=== PATIENT | male | born 1960 ===

== ENCOUNTER 2016-11-28 23:28 | Emergency (ER) | payer SELFPAY ==
[2016-11-28 23:50] VITALS: BP 165/69; PULSE 93; RESP 20; TEMP 98.3; O2SAT 99
--- NOTE | 2016-11-29 00:50 | C.PDOC ---
History Of Present Illness 56 y/o homeless male presents to the ED with complains of bilateral leg swelling , itching and requesting bed to sleep for the night. Pt denies fever, chest pain , SOB , calf pain, re cent trauma or any other complaints. Pt states he walks a lot due to homelessness. Time Seen by Provider: 11/28/16 23:59 Chief Complaint (Nursing): Lower Extremity Problem/Injury History Per: Patient History/Exam Limitations: no limitations Onset/Duration Of Symptoms: Days Current Symptoms Are (Timing): Still Present Severity: Mild Recent travel outside of the [place]: No Past Medical History Reviewed: Historical Data, Nursing Documentation, Vital Signs Vital Signs: Last Vital Signs Temp 98.3 F 11/28/16 23:37 Pulse 93 H 11/28/16 23:37 Resp 20 11/28/16 23:37 BP 165/69 H 11/28/16 23:37 Pulse Ox 99 11/29/16 01:13 Family History: States: Unknown Family Hx - Social History Hx Alcohol Use: Yes Hx Substance Use: No - Immunization History Hx Tetanus Toxoid Vaccination: No Hx Influenza Vaccination: No Hx Pneumococcal Vaccination: No Review Of Systems Except As Marked, All Systems Reviewed And Found Negative. Constitutional: Negative for: Fever, Chills Cardiovascular: Negative for: Chest Pain Respiratory: Negative for: Shortness of Breath Musculoskeletal: Positive for: Other (bilateral leg swelling and itching) Physical Exam - Physical Exam Appears: Non-toxic, No Acute Distress, Other (poor hygeine) Skin: Warm, Dry Head: Atraumatic, Normacephalic Neck: Normal Chest: Symmetrical Cardiovascular: Rhythm Regular, No Murmur Respiratory: Normal Breath Sounds, No Rales, No Rhonchi, No Wheezing Extremity: Normal ROM, No Tenderness, No Calf Tenderness, No Deformity, Swelling (bilateral lower legs with dry excoriations over distal aspects lower legs; no warmth or open lesions) Extremity: Bilateral: Atraumatic Pulses: Left Dorsalis Pedis: Normal, Right Dorsalis Pedis: Normal Neurological/Psych: Oriented x3, Normal Speech, Normal Motor, Normal Sensation Gait: Steady ED Course And Treatment O2 Sat by Pulse Oximetry: 99 (room air) Pulse Ox Interpretation: Normal Disposition - Disposition Disposition: HOME/ ROUTINE Disposition Time: 01:08 Condition: STABLE Additional Instructions: Advised clinic follow up Leg elevation Return to ER if worse Instructions: Leg Edema (ED) - Clinical Impression Clinical Impression: Leg swelling, Venous stasis - PA / 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 - Scribe Statement The provider has reviewed the documentation as recorded by the Scribe Ilia Farmer All medical record entries made by the Demiibles were at my direction and personally dictated by me. I have reviewed the chart and agree that the record accurately reflects my personal performance of the history, physical exam, medical decision making, and the department course for this patient. I have also personally directed, reviewed, and agree with the discharge instructions and disposition.
== END 2016-11-29 01:30 | disposition home or self-care (01) ==
LOC: C.ER 23:28
DX: I87.8 Other specified disorders of veins (principal); M79.89 Other specified soft tissue disorders

== ENCOUNTER 2017-02-19 19:52 | Inpatient (IN) | payer MEDICAID ==
--- NOTE | 2017-02-19 20:16 | C.PDOC ---
History Of Present Illness 56 year old male who presents to the ER with a complaint of swelling to the abdomen, lower extremities, and genitalia for the past few days. Presence of abdominal pain, no fever nor chills. Chief Complaint (Nursing): Male Genitourinary History Per: Patient History/Exam Limitations: no limitations Onset/Duration Of Symptoms: Days Current Symptoms Are (Timing): Still Present Quality Of Discomfort: Unable To Describe Associated Symptoms: denies: Fever, Chills, Nausea, Vomiting, Back Pain, Chest Pain Alleviating Factors: None Recent travel outside of the [place]: No Past Medical History Reviewed: Historical Data, Nursing Documentation, Vital Signs Vital Signs: Last Vital Signs Temp 98.7 F 02/19/17 19:56 Pulse 88 02/19/17 19:56 Resp 16 02/19/17 19:56 BP 147/56 L 02/19/17 19:56 Pulse Ox 100 02/19/17 21:39 - Medical History PMH: Anxiety Surgical History: No Surg Hx Family History: States: Unknown Family Hx - Social History Hx Alcohol Use: Yes Hx Substance Use: No - Immunization History Hx Tetanus Toxoid Vaccination: No Hx Influenza Vaccination: No Hx Pneumococcal Vaccination: No Review Of Systems Constitutional: Negative for: Fever, Chills Cardiovascular: Negative for: Chest Pain Gastrointestinal: Negative for: Abdominal Pain Musculoskeletal: Negative for: Leg Pain Skin: Positive for: Other (Swelling) Physical Exam - Physical Exam Appears: Non-toxic, No Acute Distress Skin: Normal Color, Warm, Dry Head: Atraumatic, Normacephalic Oral Mucosa: Moist Chest: Symmetrical, No Tenderness Cardiovascular: Rhythm Regular, No Murmur Respiratory: Normal Breath Sounds, No Rales, No Rhonchi, No Wheezing Gastrointestinal/Abdominal: Soft, Tenderness (diffused tenderness), Distention ( markely distende, with ascites.), No Guarding, No Rebound, Ascites Rectal: Deferred Male Genital: Scrotal Swelling, Other (Penis swelling) Extremity: Normal ROM (x4), Pedal Edema (Bilateral) Neurological/Psych: Oriented x3, Normal Speech, Normal Cognition ED Course And Treatment - Laboratory Results Result Diagrams: 02/19/17 20:48 02/19/17 20:48 ECG: Interpreted By Me, Viewed By Me ECG Rhythm: Sinus Rhythm ECG Interpretation: Normal, No Acute Changes Interpretation Of ECG: NSR, normal tracings. Rate From EC O2 Sat by Pulse Oximetry: 100 (Room air) Pulse Ox Interpretation: Normal - Radiology CXR: Interpreted by Me, Viewed By Me CXR Interpretation: Yes: Cardiomegaly, Other (inc. BV markings) Progress Note: CT abd/pel, EKG, blood work, cultures, and urinalysis ordered Disposition Discussed With Dr.: Yaya Leon Doctor Will See Patient In The: Hospital Counseled Patient/Family Regarding: Diagnosis - Disposition Disposition: HOSPITALIZED Disposition Time: 21:54 Condition: STABLE Forms: [employer] (Martiniquais) - POA Present On Arrival: None - Clinical Impression Clinical Impression: Liver cirrhosis, Ascites, Anasarca, Renal insufficiency - Scribe Statement The provider has reviewed the documentation as recorded by the Scribe Justice English All medical record entries made by the Scribe were at my direction and personally dictated by me. I have reviewed the chart and agree that the record accurately reflects my personal performance of the history, physical exam, medical decision making, and the department course for this patient. I have also personally directed, reviewed, and agree with the discharge instructions and disposition.
[2017-02-19 20:56] LABS: BASO % 0.3 % (0.0-2.0); EOS # 0.2 K/uL (0.0-0.7); EOS % 3.6 % (0.0-4.0); HEMATOCRIT 22.3 % (35.0-51.0); LYMPH # 0.9 K/uL (1.0-4.3); MEAN CELL VOLUME 103.1 fL (80.0-94.0); MEAN CORPUSCULAR HEMOGLOBIN 35.4 pg (27.0-31.0); MEAN CORPUSCULAR HGB CONC 34.3 g/dL (33.0-37.0); MONO # 0.7 K/uL (0.0-0.8); MONO % 11.2 % (0.0-10.0); RED CELL DISTRIBUTION WIDTH 19.5 % (11.5-14.5); WHITE BLOOD COUNT 5.8 K/uL (4.8-10.8)
[2017-02-19 21:02] LABS: POTASSIUM 4.2 mmol/L (3.6-5.2)
[2017-02-19 21:04] LABS: ALB/GLOB RATIO 0.4 (1.0-2.1); BILIRUBIN,TOTAL 1.4 mg/dL (0.2-1.3); CALCIUM 7.3 mg/dl (8.6-10.4); TOTAL PROTEIN 6.5 g/dL (6.3-8.3)
[2017-02-19 22:15] LABS: INR 1.7
[2017-02-19] MEDS ORDERED: Albumin Human 25% (12.5 gm/50 ml) IV ONE (23:08)
[2017-02-19 23:36] LABS: RBC URINE 295 /hpf (0-3); URINE BACTERIA FEW (<OCC); URINE BILIRUBIN NEGATIVE (NEGATIVE); URINE BLOOD 3+ (NEGATIVE); URINE COLOR Amber (YELLOW); URINE GLUCOSE (UA) NORMAL (Normal); URINE KETONE NEGATIVE (NEGATIVE); URINE LEUKOCYTE ESTERASE 1+ Leu/uL (Negative); URINE PROTEIN 2+ mg/dL (NEGATIVE); URINE UROBILINOGEN NORMAL mg/dL (0.2-1.0); WBC URINE 20 /hpf (0-5)
--- NOTE | 2017-02-19 23:38 | CP.PCM.CON ---
History of Present Illness - History of Present Illness History of Present Illness: CC: Past Patient History - Past Social History Smoking Status: Light Smoker < 10 Cigarettes Daily - PSYCHIATRIC Hx Anxiety: Yes Hx Substance Use: No - SURGICAL HISTORY Hx Surgeries: No - ANESTHESIA Hx Anesthesia: No Meds Allergies/Adverse Reactions: Allergies Allergy/AdvReac Type Severity Reaction Status Date / Time No Known Allergies Allergy Verified 09/23/16 23:47 - Medications Medications: Current Medications Albumin Human (Albumin Human 25% (12.5 Gm/50 Ml)) 25 gm IV ONCE ONE Stop: 02/19/17 23:09 Results - Vital Signs Recent Vital Signs: Last Vital Signs Temp 98.7 F 02/19/17 19:56 Pulse 90 02/19/17 22:48 Resp 20 02/19/17 22:48 BP 139/59 L 02/19/17 22:48 Pulse Ox 100 02/19/17 22:48 - Labs Result Diagrams: 02/19/17 20:48 02/19/17 20:48 Labs: Laboratory Results - last 24 hr 02/19/17 02/19/17 02/19/17 22:00 22:00 22:03 PT 19.5 H INR 1.7 APTT 47 H Lactic Acid 1.5 Urine Color Urine Clarity Urine pH Ur Specific [place] Urine Protein Urine Glucose (UA) Urine Ketones Urine Blood Urine Nitrate Urine Bilirubin Urine Urobilinogen Ur Leukocyte Esterase Urine WBC (Auto) Urine RBC (Auto) Ur Squamous Epith Cells Urine Bacteria Blood Type O POSITIVE Antibody Screen Negative 02/19/17 23:22 PT INR APTT Lactic Acid Urine Color Dominique Urine Clarity Hazy Urine pH 5.0 Ur Specific [place] 1.013 Urine Protein 2+ H Urine Glucose (UA) Normal Urine Ketones Negative Urine Blood 3+ H Urine Nitrate Negative Urine Bilirubin Negative Urine Urobilinogen Normal Ur Leukocyte Esterase 1+ H Urine WBC (Auto) 20 H Urine RBC (Auto) 295 H Ur Squamous Epith Cells < 1 Urine Bacteria Few H Blood Type Antibody Screen
[2017-02-20 00:06] LABS: CREATININE, RANDOM URINE 153.7 mg/dL
--- NOTE | 2017-02-20 04:43 | CP.PCM.HP ---
<Munira Pineda - Last Filed: 02/20/17 06:19> History of Present Illness - History of Present Illness History of Present Illness: CC: Fluid overload HPI: Patient is a 56 year old male with no past medical history (as per patient ) who presents to the ED with complaints of bilateral leg swelling, distention of the abdomen and b/l testicular swelling that started 4 days ago. Patient reports that he has had similar episodes in the past but he is unsure of the onsets of his symptoms. Patient reports he was [place] [facility] [place] the same symptoms, where he had a paracentesis, draining about 6 bottles of fluid. Patient admits to abdominal pain, intermittent cough and dyspnea on exertion but denies fever, chills, nausea, vomiting, b/l leg pain, SOB, orthopnea. Patient is a poor historian. PMD: None PMHx: Denies PSHx: Denies FHx: unknown Medications: Denies Allergies: NKDA Social history: Homeless, admits to smoking (10 cigarettes for per day) denies ETOH and illicit drug use Present on Admission - Present on Admission Any Indicators Present on Admission: No Review of Systems - Constitutional Constitutional: absent: Chills, Fever, Headache, Weakness - EENT Ears: absent: Dizziness - Cardiovascular Cardiovascular: Edema, Leg Edema, Pedal Edema. absent: Chest Pain, Diaphoresis , Dyspnea, Orthopnea, Radiating Pain - Respiratory Respiratory: Cough, Dyspnea, Dyspnea on Exertion. absent: Chest Congestion - Gastrointestinal Gastrointestinal: Abdominal Pain. absent: Change in Bowel Habits, Nausea, Vomiting - Genitourinary Genitourinary: Urinary Frequency. absent: Dysuria, Pyuria - Reproductive: Male Additional comments: b/l Testicular enlargement - Integumentary Integumentary: Swelling. absent: Jaundice - Psychiatric Psychiatric: absent: Change in Appetite - Endocrine Endocrine: absent: Fatigue, Palpitations Past Patient History - Past Social History Smoking Status: Light Smoker < 10 Cigarettes Daily - PSYCHIATRIC Hx Anxiety: Yes Hx Substance Use: No - SURGICAL HISTORY Hx Surgeries: No - ANESTHESIA Hx Anesthesia: No Meds Allergies/Adverse Reactions: Allergies Allergy/AdvReac Type Severity Reaction Status Date / Time No Known Allergies Allergy Verified 09/23/16 23:47 Physical Exam - Head Exam Head Exam: ATRAUMATIC - Eye Exam Eye Exam: EOMI, Normal appearance - Respiratory Exam Respiratory Exam: Clear to Auscultation Bilateral, NORMAL BREATHING PATTERN - Cardiovascular Exam Cardiovascular Exam: REGULAR RHYTHM, JVD, +S1, +S2 Additional comments: Unable to tolerate complete supine position - GI/Abdominal Exam GI & Abdominal Exam: Distended, Firm, Normal Bowel Sounds, Tenderness Additional comments: Ascites - Extremities Exam Extremities exam: Positive for: pedal edema Additional comments: Mildly warm to touch, - Neurological Exam Neurological exam: Alert, Oriented x3 - Skin Skin Exam: Normal Color Results - Vital Signs Recent Vital Signs: Last Vital Signs Temp 98.5 F 02/20/17 04:26 Pulse 86 02/20/17 04:26 Resp 16 02/20/17 04:26 BP 135/65 02/20/17 04:26 Pulse Ox 100 02/20/17 04:26 - Labs Result Diagrams: 02/19/17 20:48 02/19/17 20:48 Labs: Laboratory Results - last 24 hr 02/19/17 02/19/17 02/19/17 22:00 22:00 22:03 PT 19.5 H INR 1.7 APTT 47 H Lactic Acid 1.5 Urine Color Urine Clarity Urine pH Ur Specific [place] Urine Protein Urine Glucose (UA) Urine Ketones Urine Blood Urine Nitrate Urine Bilirubin Urine Urobilinogen Ur Leukocyte Esterase Urine WBC (Auto) Urine RBC (Auto) Ur Squamous Epith Cells Urine Bacteria Ur Random Creatinine Ur Random Sodium Urine Opiates Screen Urine Methadone Screen Ur Barbiturates Screen Ur Phencyclidine Scrn Ur Amphetamines Screen U Benzodiazepines Scrn U Oth Cocaine Metabols U Cannabinoids Screen Blood Type O POSITIVE Antibody Screen Negative 02/19/17 02/19/17 02/19/17 23:22 23:22 23:48 PT INR APTT Lactic Acid Urine Color Dominique Urine Clarity Hazy Urine pH 5.0 Ur Specific [place] 1.013 Urine Protein 2+ H Urine Glucose (UA) Normal Urine Ketones Negative Urine Blood 3+ H Urine Nitrate Negative Urine Bilirubin Negative Urine Urobilinogen Normal Ur Leukocyte Esterase 1+ H Urine WBC (Auto) 20 H Urine RBC (Auto) 295 H Ur Squamous Epith Cells < 1 Urine Bacteria Few H Ur Random Creatinine 153.7 Ur Random Sodium < 5 Urine Opiates Screen Negative Urine Methadone Screen Negative Ur Barbiturates Screen Negative Ur Phencyclidine Scrn Negative Ur Amphetamines Screen Negative U Benzodiazepines Scrn Negative U Oth Cocaine Metabols Negative U Cannabinoids Screen Negative Blood Type Antibody Screen Assessment & Plan (1) Volume overload Assessment and Plan: Possibly secondary to cirrhosis or renal etiology Liver enzymes: * AST/ALT: 60/51, Alkaline phosphatase: 168 * Albumin: 2.0 * Urine random creatinine: 153.7 * Urine Sodium: <5 * F/u urine protein * F/u hepatitis panel Medication/ Treatment: Albumin 25gm IV once Compression stockings Imaging: * F/u Echocardiogram * F/u Chest-X-ray official report Status: Acute (2) Anemia Assessment and Plan: H/H * 22.3/7.7 * Transfused 1 Unit of PRBC * F/u H/H with repeat labs Status: Acute (3) Renal insufficiency Assessment and Plan: Cr/BUN: 2.7/61 - Fluid held due to volume overload Status: Acute (4) Thrombocytopenia Assessment and Plan: On admission: -Platelets: 44 - Continue to monitor Status: Acute (5) Prophylactic measure Assessment and Plan: Scds contraindicated due to b/l leg edema Protonix 40mg PO daily Anti-coagulation contraindication: low platelets and MICHELINE Status: Acute <Yaya Leon P - Last Filed: 02/20/17 08:23> Results - Vital Signs Recent Vital Signs: Last Vital Signs Temp 98.5 F 02/20/17 06:44 Pulse 75 02/20/17 07:17 Resp 15 02/20/17 07:17 BP 151/61 H 02/20/17 07:17 Pulse Ox 98 02/20/17 07:17 - Labs Result Diagrams: 02/20/17 06:42 02/20/17 06:42 Labs: Laboratory Results - last 24 hr 02/19/17 02/19/17 02/19/17 22:00 22:00 22:03 WBC RBC Hgb Hct MCV MCH MCHC RDW Plt Count MPV Neut % (Auto) Lymph % (Auto) Norman % (Auto) Eos % (Auto) Baso % (Auto) Neut # Lymph # Norman # Eos # Baso # PT 19.5 H INR 1.7 APTT 47 H Sodium Potassium Chloride Carbon Dioxide Anion Gap BUN Creatinine Est GFR ( Amer) Est GFR (Non-Af Amer) Random Glucose Lactic Acid 1.5 Calcium Phosphorus Magnesium Total Bilirubin AST ALT Alkaline Phosphatase Total Protein Albumin Globulin Albumin/Globulin Ratio Urine Color Urine Clarity Urine pH Ur Specific [place] Urine Protein Urine Glucose (UA) Urine Ketones Urine Blood Urine Nitrate Urine Bilirubin Urine Urobilinogen Ur Leukocyte Esterase Urine WBC (Auto) Urine RBC (Auto) Ur Squamous Epith Cells Urine Bacteria Ur Random Creatinine Ur Random Sodium Urine Opiates Screen Urine Methadone Screen Ur Barbiturates Screen Ur Phencyclidine Scrn Ur Amphetamines Screen U Benzodiazepines Scrn U Oth Cocaine Metabols U Cannabinoids Screen Blood Type O POSITIVE Antibody Screen Negative 02/19/17 02/19/17 02/19/17 23:22 23:22 23:48 WBC RBC Hgb Hct MCV MCH MCHC RDW Plt Count MPV Neut % (Auto) Lymph % (Auto) Norman % (Auto) Eos % (Auto) Baso % (Auto) Neut # Lymph # Norman # Eos # Baso # PT INR APTT Sodium Potassium Chloride Carbon Dioxide Anion Gap BUN Creatinine Est GFR ( Amer) Est GFR (Non-Af Amer) Random Glucose Lactic Acid Calcium Phosphorus Magnesium Total Bilirubin AST ALT Alkaline Phosphatase Total Protein Albumin Globulin Albumin/Globulin Ratio Urine Color Dominique Urine Clarity Hazy Urine pH 5.0 Ur Specific [place] 1.013 Urine Protein 2+ H Urine Glucose (UA) Normal Urine Ketones Negative Urine Blood 3+ H Urine Nitrate Negative Urine Bilirubin Negative Urine Urobilinogen Normal Ur Leukocyte Esterase 1+ H Urine WBC (Auto) 20 H Urine RBC (Auto) 295 H Ur Squamous Epith Cells < 1 Urine Bacteria Few H Ur Random Creatinine 153.7 Ur Random Sodium < 5 Urine Opiates Screen Negative Urine Methadone Screen Negative Ur Barbiturates Screen Negative Ur Phencyclidine Scrn Negative Ur Amphetamines Screen Negative U Benzodiazepines Scrn Negative U Oth Cocaine Metabols Negative U Cannabinoids Screen Negative Blood Type Antibody Screen 02/20/17 02/20/17 06:42 06:42 WBC 5.1 RBC 2.21 L Hgb 7.5 L Hct 22.0 L MCV 99.6 H D MCH 33.9 H MCHC 34.0 RDW 21.1 H Plt Count 42 L MPV 9.7 Neut % (Auto) 59.7 Lymph % (Auto) 21.6 Norman % (Auto) 13.0 H Eos % (Auto) 5.2 H Baso % (Auto) 0.5 Neut # 3.1 Lymph # 1.1 Norman # 0.7 Eos # 0.3 Baso # 0.0 PT INR APTT Sodium 137 Potassium 4.0 Chloride 112 H Carbon Dioxide 16 L Anion Gap 13 BUN 57 H Creatinine 2.8 H Est GFR ( Amer) 29 Est GFR (Non-Af Amer) 24 Random Glucose 106 Lactic Acid Calcium 7.6 L Phosphorus 4.7 H Magnesium 1.8 Total Bilirubin 1.8 H AST 53 ALT 43 Alkaline Phosphatase 138 H Total Protein 6.1 L Albumin 2.0 L Globulin 4.1 H Albumin/Globulin Ratio 0.5 L Urine Color Urine Clarity Urine pH Ur Specific [place] Urine Protein Urine Glucose (UA) Urine Ketones Urine Blood Urine Nitrate Urine Bilirubin Urine Urobilinogen Ur Leukocyte Esterase Urine WBC (Auto) Urine RBC (Auto) Ur Squamous Epith Cells Urine Bacteria Ur Random Creatinine Ur Random Sodium Urine Opiates Screen Urine Methadone Screen Ur Barbiturates Screen Ur Phencyclidine Scrn Ur Amphetamines Screen U Benzodiazepines Scrn U Oth Cocaine Metabols U Cannabinoids Screen Blood Type Antibody Screen Attending/Attestation - Attestation I have personally seen and examined this patient.: Yes I have fully participated in the care of the patient.: Yes I have reviewed all pertinent clinical information: Yes Notes (Text): Assessment: * Patient has anasarca, ascitis, subq and lympho edema of the full legs, low albumin of 2, CT finding of suspected hepatic cirrhosis, portal htn, enlarged spleen pointing hepatic origin, dd of nephrotic syn, cardiac origin. * Anemia, thrombocytopenia without h/o acute loss * [place] [facility] [place] and ascitic tap, patient is poor historian, does not provide any more information * Renal insufficiency, appear prerenal with low FENa, from low intravascular volume despite anasarca * Home less poor social support Plan * Urine spot albumin/creatinine * Transfuse albumin and prbc * Medical [place] [facility] [place] * Hepatic USG to r/o portal vein thrombosis * Diuresis once FENa > 1% * May need recurrent taps if remains prerenal * May need abx for sbp, betablocker to reduce portal pressure, salt water restriction, after initial availability of records. * Echo * Compression stockings for mechanical pressure to reduce leg edema * Stool occult blood * GI/DVT prophylaxis, heparin/lovenox contraindicated * See orders for detail.
[2017-02-20 06:45] LABS: EOS # 0.3 K/uL (0.0-0.7); LYMPH # 1.1 K/uL (1.0-4.3); MONO # 0.7 K/uL (0.0-0.8); WHITE BLOOD COUNT 5.1 K/uL (4.8-10.8)
[2017-02-20 06:50] LABS: BASO % 0.5 % (0.0-2.0); EOS % 5.2 % (0.0-4.0); LYMPH % 21.6 % (20.0-40.0); MEAN CELL VOLUME 99.6 fL (80.0-94.0); MEAN CORPUSCULAR HEMOGLOBIN 33.9 pg (27.0-31.0); MEAN PLATELET VOLUME 9.7 fL (7.2-11.7); NRBC % 0.2 % (0.0-2.0); RED CELL DISTRIBUTION WIDTH 21.1 % (11.5-14.5)
[2017-02-20 07:09] LABS: ALB/GLOB RATIO 0.5 (1.0-2.1); BILIRUBIN,TOTAL 1.8 mg/dL (0.2-1.3); CALCIUM 7.6 mg/dl (8.6-10.4); MAGNESIUM 1.8 mg/dL (1.6-2.3); PHOSPHOROUS 4.7 mg/dL (2.5-4.5); TOTAL PROTEIN 6.1 g/dL (6.3-8.3)
[2017-02-20] MEDS: Albumin Human 25% (12.5 gm/50 ml) IV SCH ×2 (09:08→10:27)
--- NOTE | 2017-02-20 09:27 | CT ---
PROCEDURE: CT Abdomen and Pelvis without intravenous contrast HISTORY: abd pain COMPARISON: None. TECHNIQUE: Without contrast.. Contrast Dose: 0 Radiation dose: Total exam DLP = 1337.3 mGy-cm. This CT exam was performed using one or more of the following dose reduction techniques: Automated exposure control, adjustment of the mA and/or kV according to patient size, and/or use of iterative reconstruction technique. FINDINGS: LOWER THORAX: Left pleural effusion. No right pleural effusion. No pulmonary infiltrate. LIVER: Nodular contour. Moderate atrophy of right lobe. Consistent with hepatic cirrhosis. Several calcified punctate hepatic granulomas. No biliary dilatation. No mass. GALLBLADDER AND BILE DUCTS: No evidence of cholelithiasis. High attenuation of gallbladder contents may reflect milk of calcium bile. PANCREAS: Unremarkable. No gross lesion or ductal dilatation. SPLEEN: Splenomegaly. Spleen measures up to 18 cm in greatest dimension. Punctate calcification consistent with granuloma. ADRENALS: Unremarkable. No mass. KIDNEYS AND URETERS: Unremarkable. No hydronephrosis. No solid mass. VASCULATURE: Unremarkable. No aortic aneurysm. BOWEL: Peters colonic diverticulosis. No evidence of diverticulitis. APPENDIX: Not positively identified. No secondary findings to suggest acute appendicitis. PERITONEUM: Extensive ascites. Coarse calcification beneath right hemidiaphragm, nonspecific. Likely dystrophic. LYMPH NODES: No significant retroperitoneal or pelvic lymphadenopathy. There is mild bilateral inguinal lymphadenopathy noted. BLADDER: Unremarkable. REPRODUCTIVE: Normal prostate. Left hydrocele secondary to patent processus vaginalis. BONES: No acute fracture. OTHER FINDINGS: Generalized anasarca. IMPRESSION: Hepatic cirrhosis. Extensive ascites. Old calcified hepatic and splenic granulomas. Marked splenomegaly. Small left pleural effusion. Preliminary interpretation of this examination was reported by [facility] at 9:31 p.m. on 02/19/2017. There is concurrence of this report with the preliminary interpretation.
--- NOTE | 2017-02-20 09:58 | CP.PCM.PN ---
<Chon Cole - Last Filed: 02/20/17 13:18> Subjective - Date & Time of Evaluation Date of Evaluation: 02/20/17 Time of Evaluation: 09:51 - Subjective Subjective: PGY1 Note for Dr. Cohen HPI: Patient seen and examined at bedside. Doing well with no complaints at this time. Says he went to [facility] and thought it was a bad hospital so came here. Says he used to live with his but is homeless. States his belly is bloated and so is his testicle. Says last time he got a paracentesis had multiple vials drained and his abdomen and testicle reduced in size considerably. Patient will likely get a paracentesis today. Objective - Vital Signs/Intake and Output Vital Signs (last 24 hours): Temp Pulse Resp BP Pulse Ox 98 F 81 21 149/66 100 02/20/17 08:41 02/20/17 08:41 02/20/17 08:41 02/20/17 08:41 02/20/17 08:41 - Medications Medications: Current Medications Albumin Human (Albumin Human 25% (12.5 Gm/50 Ml)) 12.5 gm IV Q1H KARL Stop: 02/20/17 10:01 Last Admin: 02/20/17 09:08 Dose: 12.5 gm Pantoprazole Sodium (Protonix Ec Tab) 20 mg PO DAILY KARL - Labs Labs: 02/20/17 06:42 02/20/17 06:42 PT 19.5 SECONDS (9.7-12.2) H 02/19/17 22:00 INR 1.7 02/19/17 22:00 APTT 47 SECONDS (21-34) H 02/19/17 22:00 - Constitutional Appears: Well, Non-toxic, No Acute Distress - Head Exam Head Exam: ATRAUMATIC, NORMAL INSPECTION, NORMOCEPHALIC - Eye Exam Eye Exam: EOMI Pupil Exam: NORMAL ACCOMODATION, PERRL - ENT Exam ENT Exam: Mucous Membranes Moist - Respiratory Exam Respiratory Exam: Clear to Ausculation Bilateral, NORMAL BREATHING PATTERN. absent: Rales, Rhonchi, Wheezes, Stridor - Cardiovascular Exam Cardiovascular Exam: REGULAR RHYTHM, RRR. absent: Bradycardia, Tachycardia, Gallop, Rubs, Murmur - GI/Abdominal Exam GI & Abdominal Exam: Distended, Soft, Normal Bowel Sounds. absent: Tenderness - Neurological Exam Neurological Exam: Alert, Awake, Oriented x3 - Psychiatric Exam Psychiatric exam: Normal Affect, Normal Mood - Skin Skin Exam: Dry, Intact, Normal Color, Warm Assessment and Plan - Assessment and Plan (Free Text) Assessment: Volume overload * GI (Te[place]) - F/U reccs * Possibly secondary to cirrhosis or renal etiology * Liver enzymes: * AST/ALT: 60/51, Alkaline phosphatase: 168 * Albumin: 2.0 * Urine random creatinine: 153.7 * Urine Sodium: <5 * Urine protein = 64 * HCV + * Albumin 25gm IV 2x * Compression stockings * F/U Abdominal US * F/U Echocardiogram * CXR - small right pleural effusion * CT: cirrhosis, ascites, calcified hepatic and splenic glaucomas, splenomegaly * F/U Testicular US * Daily weight checks * F/U CXR PA/LAT * MELD Score = 24 --> 19.6% estimated 3 month mortality risk Anemia * Transfused 1 Unit of PRBC * Needs outpatient colonoscopy * INR - F/U Renal insufficiency * Cr/BUN: 2.7/61 Thrombocytopenia * Hold GI PPX for risk of decreasing platelets * No heparin PPX * Ambulate/OOB * Compression stockings <Génesis Cohen V - Last Filed: 02/20/17 19:12> Objective - Vital Signs/Intake and Output Vital Signs (last 24 hours): Temp Pulse Resp BP Pulse Ox 98.2 F 77 16 147/77 100 02/20/17 17:41 02/20/17 17:41 02/20/17 17:41 02/20/17 17:41 02/20/17 14:40 Intake and Output: 02/20/17 02/20/17 06:59 18:59 Intake Total 500 Balance 500 - Labs Labs: 02/20/17 06:42 02/20/17 06:42 PT 19.5 SECONDS (9.7-12.2) H 02/19/17 22:00 INR 1.7 02/19/17 22:00 APTT 47 SECONDS (21-34) H 02/19/17 22:00 Attending/Attestation - Attestation I have personally seen and examined this patient.: Yes I have fully participated in the care of the patient.: Yes I have reviewed all pertinent clinical information, including history, physical exam and plan: Yes Notes (Text): Patient seen, and examined with day-time resident. Patient comes in [facility] because he feel swollen in his testicles and around his abdomen. Patient reports he left [facility] last Monday and reports he had paracentesis completed last ; wherein 6 Liters were removed at that time. Patient reports he has felt swollen in his testicles and came back to the hospital this time for 2nd time because he was swollen in his testicles. GI consulted on the case-->help appreciated; recommended for IR tap with fluid studies; will need to monitor platelets and possible platelet transfusion prior to paracentesis Nephrology (Dr. 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, pancytopenia, hx of hepatitis C (which patient admits to, but cannot recalled how he received the virus but counselled transferrable via blood/bodily fluids) and poses at risks for hepatocellular carcinoma Patient s/p 1 unit of PRBC on admission; awaiting 2nd unit of PRBC to be given today and given Albumin on admission with night time and ordered for additional albumin for today Assessment/Plan 1) Anasarca * Will attempt to retrieve patient's recent hospital records from [facility] since he reports he was admitted there last week with paracentesis and see what prior workup he has completed * GI (Dr. Lee)-->help appreciated * Nephrology (Dr. Bettencourt)-->help appreciated * Monitor daily weights and intake and out * Patient is a poor historian but confirms he has a "liver problem" and "hepatitis". Patient denies heart problems and unclear regarding kidney problems * Patient received Albumin on admission and additional albumin during the day * Patient also received 2 PRBC total; given hgb; 7's will need to uncover baseline Hgb/Hct values * Compression stockings * F/U Abdominal US-->mild hepatomegaly, echogenic liver, nodular hepatic contour , gallbladder sludge, gallbladder wall thickening/pericholecytstic edema, no gallstones, negative sonographic Gibson's sign, splenomeglay, small left pleural effusion, ascites * Echocardiogram pending official report * CXR - small right pleural effusion * CT scan (02/20/17): hepatitc cirrhosis. entensive ascites. Old calcified hepatic and splenic granulomas, moarked splenomegaly, small left pleural effusion: cirrhosis, ascites, calcified hepatic and splenic glaucomas, splenomegaly * Testicular US (02/20/17): severe bilateral scrotal edema; enlarged left epididmyitis with evidence of increased vascularity * Daily weight checks * CXR PA/LAT (02/20/17): right basilar infiltrate * MELD Score = 24 --> 19.6% estimated 3 month mortality risk 2) Pancytopenia * Heme-onc consult (Dr. Sarita Yanez) on consult * received one unit of PRBC on admission and ordered for additional during the day * Platelets low below 50K; no bleeding episodes no acute rashes; patient advised not to scratch * Hx of hepatitis C and hx of cirrhosis 3) Renal insufficiency; Possible hepatorenal syndrome * Cr/BUN: 2.7/61; prior Cr: 3.2 upon discharge at [facility] * unknown baseline; will need retrieve prior records to see baseline * Patient is off diuretic since admission * Acute renal failure vs possible hepato renal syndrome * nephrology consult (Dr. Bettencourt) * monitor intake and output * order for renal US 4) Hepatitis C+ * Abdominal US-->mild hepatomegaly, echogenic liver, nodular hepatic contour, gallbladder sludge, gallbladder wall thickening/pericholecytstic edema, no gallstones, negative sonographic Gibson's sign, splenomeglay, small left pleural effusion, ascites 5) Cirrhosis * Abdominal US-->mild hepatomegaly, echogenic liver, nodular hepatic contour, gallbladder sludge, gallbladder wall thickening/pericholecytstic edema, no gallstones, negative sonographic Gibson's sign, splenomeglay, small left pleural effusion, ascites 6) Thrombocytopenia * Hold GI PPX for risk of decreasing platelets * No heparin dvt secondary to thrombocytopenia * No observed rashes, no abnormal bleeding note; patient counselled to not scratch 7) PPX * Ambulate/OOB * Compression stockings * No GI/DVT ppx secondary to thrombocytopenia
[2017-02-20] MEDS ORDERED: Pantoprazole 20 mg EC Tab PO SCH (10:00)
--- NOTE | 2017-02-20 11:15 | RAD ---
HISTORY: anasarca COMPARISON: No prior. TECHNIQUE: Chest PA and lateral FINDINGS: LUNGS: No active pulmonary disease. PLEURA: There is a pleural effusion seen only in the lateral view on 1 side, likely right side but not definitely determined. CARDIOVASCULAR: Normal. OSSEOUS STRUCTURES: No significant abnormalities. VISUALIZED UPPER ABDOMEN: Normal. OTHER FINDINGS: None. IMPRESSION: Probable small right pleural effusion. No acute infiltrate.
--- NOTE | 2017-02-20 13:19 | US ---
HISTORY: Ascites COMPARISON: CT abdomen and pelvis without oral or IV contrast performed 02/19/17 TECHNIQUE: Sonographic evaluation of the abdomen. FINDINGS: LIVER: Measures 18.9 cm in sagittal dimension. Nodular hepatic contour. Echogenic liver may be seen in setting of hepatic parenchymal disease or fatty infiltration. No focal hepatic mass identified. The main portal vein appears patent with normal directional flow. No intrahepatic bile duct dilatation. GALLBLADDER: Gallbladder sludge. No gallstones identified. Gallbladder wall thickening/ edema measuring up to approximately 5 mm. Negative sonographic Gibson's sign as assessed by the mixing and molding machine operator. COMMON BILE DUCT: Measures 4 mm. PANCREAS: Not well visualized. RIGHT KIDNEY: Measures 13.4 x 4.4 x 5.4cm. No obstructing calculus or hydronephrosis identified. LEFT KIDNEY: Measures 14.1 x 4.6 x 4.3cm. No obstructing calculus or hydronephrosis identified. SPLEEN: Measures approximately 18.6 cm. AORTA: Limited views appear unremarkable. IVC: Limited views appear unremarkable. OTHER FINDINGS: Small left pleural effusion. Ascites. IMPRESSION: Mild hepatomegaly. Echogenic liver may be seen in setting of hepatic parenchymal disease or fatty infiltration. Nodular hepatic contour ; correlate for cirrhosis. Gallbladder sludge. Gallbladder wall thickening/pericholecystic edema measuring up to 5 mm. No gallstones identified. Negative sonographic Gibson's sign as assessed by the mixing and molding machine operator. Correlate clinically. Splenomegaly. Small left pleural effusion. Ascites.
--- NOTE | 2017-02-20 14:34 | US ---
HISTORY: swelling TECHNIQUE: Realtime sonography through the scrotum with color and doppler flow. COMPARISON: None Available. FINDINGS: RIGHT TESTICLE: Measures 3.1 x 2.0 x 2.2 cm. Homogeneous echotexture. Blood flow is demonstrated. RIGHT EPIDIDYMIS: Measures approximately 1.4 x 1.0 x 1.2 cm. LEFT TESTICLE: Measures 3.1 x 2.5 x 2.5 cm. Homogeneous echotexture. Blood flow is demonstrated. LEFT EPIDIDYMIS: Measures approximately 5.8 x 3.6 x 4.7 cm. HYDROCELE: None. VARICOCELE: None. OTHER FINDINGS: Bilateral scrotal edema. IMPRESSION: Severe bilateral scrotal edema. Enlarged left epididymis with evidence of increased vascularity ; appearance consistent with epididymitis. Correlate clinically.
--- NOTE | 2017-02-20 14:47 | RAD ---
HISTORY: SOB COMPARISON: 02/19/2017 TECHNIQUE: Chest PA and lateral FINDINGS: LUNGS: Right basilar infiltrate, likely lower lobe. No infiltrate elsewhere. PLEURA: Small right pleural effusion. No left pleural effusion. No pneumothorax CARDIOVASCULAR: Normal. OSSEOUS STRUCTURES: No significant abnormalities. VISUALIZED UPPER ABDOMEN: Normal. OTHER FINDINGS: None. IMPRESSION: Right basilar infiltrate. Small right pleural effusion.
--- NOTE | 2017-02-20 16:40 | CP.PCM.CON ---
History of Present Illness - History of Present Illness History of Present Illness: CC: Ascites HPI: GI service consult requested on this 56 year old man with cirrhosis and ascites. Patient is a poor historian. Generalized anasarca noted on exam and CT/ sonogram. He apparently had paracentesis last week in [facility]. Labs notable for renal failure, pancytopenia, and Hepatitis C antibody positive. Patient states he has not drunk alcohol in past 40 years. Past Patient History - Past Medical History & Family History Past Medical History?: Yes - Past Social History Smoking Status: Light Smoker < 10 Cigarettes Daily - MUSCULOSKELETAL/RHEUMATOLOGICAL Hx Falls: No - PSYCHIATRIC Hx Psychophysiologic Disorder: Yes Hx Substance Use: No - SURGICAL HISTORY Hx Surgeries: No - ANESTHESIA Hx Anesthesia: No Meds Allergies/Adverse Reactions: Allergies Allergy/AdvReac Type Severity Reaction Status Date / Time No Known Allergies Allergy Verified 09/23/16 23:47 Physical Exam - Constitutional Appears: Confused, Chronically Ill - Head Exam Head Exam: NORMOCEPHALIC - Eye Exam Eye Exam: absent: Scleral icterus - Respiratory Exam Respiratory Exam: Clear to Auscultation Bilateral - Cardiovascular Exam Cardiovascular Exam: REGULAR RHYTHM - GI/Abdominal Exam GI & Abdominal Exam: Soft. absent: Tenderness (Large amount of ascites/ distension) - Extremities Exam Additional comments: Massive pitting edema bilat LEs - Neurological Exam Neurological exam: Alert Results - Vital Signs Recent Vital Signs: Last Vital Signs Temp 98.3 F 02/20/17 15:17 Pulse 78 02/20/17 15:17 Resp 18 02/20/17 15:17 BP 148/72 02/20/17 15:17 Pulse Ox 100 02/20/17 14:40 - Labs Result Diagrams: 02/20/17 06:42 02/20/17 06:42 Labs: Laboratory Results - last 24 hr 02/19/17 02/19/17 02/19/17 22:00 22:00 22:03 WBC RBC Hgb Hct MCV MCH MCHC RDW Plt Count MPV Neut % (Auto) Lymph % (Auto) [place] % (Auto) Eos % (Auto) Baso % (Auto) Neut # Lymph # [place] # Eos # Baso # PT 19.5 H INR 1.7 APTT 47 H Sodium Potassium Chloride Carbon Dioxide Anion Gap BUN Creatinine Est GFR ( Amer) Est GFR (Non-Af Amer) Random Glucose Lactic Acid 1.5 Calcium Phosphorus Magnesium Total Bilirubin AST ALT Alkaline Phosphatase Total Protein Albumin Globulin Albumin/Globulin Ratio Urine Color Urine Clarity Urine pH Ur Specific [place] Urine Protein Urine Glucose (UA) Urine Ketones Urine Blood Urine Nitrate Urine Bilirubin Urine Urobilinogen Ur Leukocyte Esterase Urine WBC (Auto) Urine RBC (Auto) Ur Squamous Epith Cells Urine Bacteria Ur Random Creatinine U Random Total Protein Ur Random Sodium Urine Opiates Screen Urine Methadone Screen Ur Barbiturates Screen Ur Phencyclidine Scrn Ur Amphetamines Screen U Benzodiazepines Scrn U Oth Cocaine Metabols U Cannabinoids Screen Hepatitis A IgM Ab Hep Bs Antigen Hep B Core IgM Ab Hepatitis C Antibody Blood Type O POSITIVE Antibody Screen Negative 02/19/17 02/19/17 02/19/17 23:22 23:22 23:48 WBC RBC Hgb Hct MCV MCH MCHC RDW Plt Count MPV Neut % (Auto) Lymph % (Auto) [place] % (Auto) Eos % (Auto) Baso % (Auto) Neut # Lymph # [place] # Eos # Baso # PT INR APTT Sodium Potassium Chloride Carbon Dioxide Anion Gap BUN Creatinine Est GFR ( Amer) Est GFR (Non-Af Amer) Random Glucose Lactic Acid Calcium Phosphorus Magnesium Total Bilirubin AST ALT Alkaline Phosphatase Total Protein Albumin Globulin Albumin/Globulin Ratio Urine Color Dominique Urine Clarity Hazy Urine pH 5.0 Ur Specific [place] 1.013 Urine Protein 2+ H Urine Glucose (UA) Normal Urine Ketones Negative Urine Blood 3+ H Urine Nitrate Negative Urine Bilirubin Negative Urine Urobilinogen Normal Ur Leukocyte Esterase 1+ H Urine WBC (Auto) 20 H Urine RBC (Auto) 295 H Ur Squamous Epith Cells < 1 Urine Bacteria Few H Ur Random Creatinine 153.7 U Random Total Protein Cancelled Ur Random Sodium < 5 Urine Opiates Screen Negative Urine Methadone Screen Negative Ur Barbiturates Screen Negative Ur Phencyclidine Scrn Negative Ur Amphetamines Screen Negative U Benzodiazepines Scrn Negative U Oth Cocaine Metabols Negative U Cannabinoids Screen Negative Hepatitis A IgM Ab Hep Bs Antigen Hep B Core IgM Ab Hepatitis C Antibody Blood Type Antibody Screen 02/20/17 02/20/17 02/20/17 06:42 06:42 06:42 WBC 5.1 RBC 2.21 L Hgb 7.5 L Hct 22.0 L MCV 99.6 H D MCH 33.9 H MCHC 34.0 RDW 21.1 H Plt Count 42 L MPV 9.7 Neut % (Auto) 59.7 Lymph % (Auto) 21.6 [place] % (Auto) 13.0 H Eos % (Auto) 5.2 H Baso % (Auto) 0.5 Neut # 3.1 Lymph # 1.1 [place] # 0.7 Eos # 0.3 Baso # 0.0 PT INR APTT Sodium 137 Potassium 4.0 Chloride 112 H Carbon Dioxide 16 L Anion Gap 13 BUN 57 H Creatinine 2.8 H Est GFR ( Amer) 29 Est GFR (Non-Af Amer) 24 Random Glucose 106 Lactic Acid Calcium 7.6 L Phosphorus 4.7 H Magnesium 1.8 Total Bilirubin 1.8 H AST 53 ALT 43 Alkaline Phosphatase 138 H Total Protein 6.1 L Albumin 2.0 L Globulin 4.1 H Albumin/Globulin Ratio 0.5 L Urine Color Urine Clarity Urine pH Ur Specific [place] Urine Protein Urine Glucose (UA) Urine Ketones Urine Blood Urine Nitrate Urine Bilirubin Urine Urobilinogen Ur Leukocyte Esterase Urine WBC (Auto) Urine RBC (Auto) Ur Squamous Epith Cells Urine Bacteria Ur Random Creatinine U Random Total Protein Ur Random Sodium Urine Opiates Screen Urine Methadone Screen Ur Barbiturates Screen Ur Phencyclidine Scrn Ur Amphetamines Screen U Benzodiazepines Scrn U Oth Cocaine Metabols U Cannabinoids Screen Hepatitis A IgM Ab Negative Hep Bs Antigen Negative Hep B Core IgM Ab Negative Hepatitis C Antibody Reactive Blood Type Antibody Screen 02/20/17 08:13 WBC RBC Hgb Hct MCV MCH MCHC RDW Plt Count MPV Neut % (Auto) Lymph % (Auto) [place] % (Auto) Eos % (Auto) Baso % (Auto) Neut # Lymph # [place] # Eos # Baso # PT INR APTT Sodium Potassium Chloride Carbon Dioxide Anion Gap BUN Creatinine Est GFR ( Amer) Est GFR (Non-Af Amer) Random Glucose Lactic Acid Calcium Phosphorus Magnesium Total Bilirubin AST ALT Alkaline Phosphatase Total Protein Albumin Globulin Albumin/Globulin Ratio Urine Color Urine Clarity Urine pH Ur Specific [place] Urine Protein Urine Glucose (UA) Urine Ketones Urine Blood Urine Nitrate Urine Bilirubin Urine Urobilinogen Ur Leukocyte Esterase Urine WBC (Auto) Urine RBC (Auto) Ur Squamous Epith Cells Urine Bacteria Ur Random Creatinine U Random Total Protein 64.0 H Ur Random Sodium Urine Opiates Screen Urine Methadone Screen Ur Barbiturates Screen Ur Phencyclidine Scrn Ur Amphetamines Screen U Benzodiazepines Scrn U Oth Cocaine Metabols U Cannabinoids Screen Hepatitis A IgM Ab Hep Bs Antigen Hep B Core IgM Ab Hepatitis C Antibody Blood Type Antibody Screen Assessment & Plan (1) Anasarca Status: Acute (2) Anemia Assessment and Plan: Macrocytic indices. Consistent with cirrhosis. Rec: Check B12 and Folate levels Status: Acute (3) Ascites Assessment and Plan: Would benefit from Paracentesis. Rec: Schedule paracentesis with IR, send fluid for cell count, albumin, protein, cytology, culture. Would not recommend diuretics in presence of renal failure. Recommend renal consult. Recommend low salt diet. Status: Acute (4) Liver cirrhosis Assessment and Plan: Cirrhosis etiology could be Hep C or alcoholic cirrhosis. Cirrhosis documented on CT and sonogram. MELD = 24 Rec: AFP, Hep C viral load and genotype. Refer for transplant evaluation when stable. Status: Acute (5) Renal insufficiency Status: Acute
[2017-02-20 21:39] LABS: INR 1.5
--- NOTE | 2017-02-20 21:46 | CP.PCM.CON ---
History of Present Illness - History of Present Illness History of Present Illness: 56 year old male with a history of former alcoholism, hep C, liver cirrhosis, recently discharged from [facility], admitted with edema, abdominal distention, with pancytopenia, renal failure. The patient notes to recently being discharged from [facility] [place] with similar complaints. He underwent paracentesis and received medication which made him urinate a lot. He denies abnormal bleeding but does bruise easily. Past medical history: hep c, liver cirrhosis Past surgical history: None Family history: Denies hematologic and oncologic problems Social history: 1/2ppd, former alcoholism, denies illicit drug use. Allergies: NKA Review of systems: All remaining review of systems including HEENT, cardiovascular, respiratory, gastrointestinal, genitourinary, musculoskeletal, dermatologic, neurologic, and psychiatric are negative unless mentioned in the HPI. Past Patient History - Past Medical History & Family History Past Medical History?: Yes - Past Social History Smoking Status: Light Smoker < 10 Cigarettes Daily - MUSCULOSKELETAL/RHEUMATOLOGICAL Hx Falls: No - PSYCHIATRIC Hx Psychophysiologic Disorder: Yes Hx Substance Use: No - SURGICAL HISTORY Hx Surgeries: No - ANESTHESIA Hx Anesthesia: No Meds Allergies/Adverse Reactions: Allergies Allergy/AdvReac Type Severity Reaction Status Date / Time No Known Allergies Allergy Verified 09/23/16 23:47 Physical Exam - Head Exam Head Exam: ATRAUMATIC - Eye Exam Eye Exam: Normal appearance - ENT Exam ENT Exam: Mucous Membranes Dry - Respiratory Exam Respiratory Exam: NORMAL BREATHING PATTERN - Cardiovascular Exam Cardiovascular Exam: +S1, +S2 - GI/Abdominal Exam GI & Abdominal Exam: Normal Bowel Sounds - Extremities Exam Extremities exam: Positive for: pedal edema Results - Vital Signs Recent Vital Signs: Last Vital Signs Temp 98.3 F 02/20/17 18:38 Pulse 77 02/20/17 18:38 Resp 16 02/20/17 18:38 BP 148/71 02/20/17 18:38 Pulse Ox 100 02/20/17 14:40 - Labs Result Diagrams: 02/21/17 07:12 02/21/17 07:12 Labs: Laboratory Results - last 24 hr 02/19/17 02/19/17 02/19/17 22:00 22:00 22:03 WBC RBC Hgb Hct MCV MCH MCHC RDW Plt Count MPV Neut % (Auto) Lymph % (Auto) [place] % (Auto) Eos % (Auto) Baso % (Auto) Neut # Lymph # [place] # Eos # Baso # PT 19.5 H INR 1.7 APTT 47 H Sodium Potassium Chloride Carbon Dioxide Anion Gap BUN Creatinine Est GFR ( Amer) Est GFR (Non-Af Amer) Random Glucose Lactic Acid 1.5 Calcium Phosphorus Magnesium Total Bilirubin AST ALT Alkaline Phosphatase Total Protein Albumin Globulin Albumin/Globulin Ratio Urine Color Urine Clarity Urine pH Ur Specific [place] Urine Protein Urine Glucose (UA) Urine Ketones Urine Blood Urine Nitrate Urine Bilirubin Urine Urobilinogen Ur Leukocyte Esterase Urine WBC (Auto) Urine RBC (Auto) Ur Squamous Epith Cells Urine Bacteria Ur Random Creatinine U Random Total Protein Ur Random Sodium Urine Opiates Screen Urine Methadone Screen Ur Barbiturates Screen Ur Phencyclidine Scrn Ur Amphetamines Screen U Benzodiazepines Scrn U Oth Cocaine Metabols U Cannabinoids Screen Hepatitis A IgM Ab Hep Bs Antigen Hep B Core IgM Ab Hepatitis C Antibody Blood Type O POSITIVE Antibody Screen Negative 02/19/17 02/19/17 02/19/17 23:22 23:22 23:48 WBC RBC Hgb Hct MCV MCH MCHC RDW Plt Count MPV Neut % (Auto) Lymph % (Auto) [place] % (Auto) Eos % (Auto) Baso % (Auto) Neut # Lymph # [place] # Eos # Baso # PT INR APTT Sodium Potassium Chloride Carbon Dioxide Anion Gap BUN Creatinine Est GFR ( Amer) Est GFR (Non-Af Amer) Random Glucose Lactic Acid Calcium Phosphorus Magnesium Total Bilirubin AST ALT Alkaline Phosphatase Total Protein Albumin Globulin Albumin/Globulin Ratio Urine Color Dominique Urine Clarity Hazy Urine pH 5.0 Ur Specific [place] 1.013 Urine Protein 2+ H Urine Glucose (UA) Normal Urine Ketones Negative Urine Blood 3+ H Urine Nitrate Negative Urine Bilirubin Negative Urine Urobilinogen Normal Ur Leukocyte Esterase 1+ H Urine WBC (Auto) 20 H Urine RBC (Auto) 295 H Ur Squamous Epith Cells < 1 Urine Bacteria Few H Ur Random Creatinine 153.7 U Random Total Protein Cancelled Ur Random Sodium < 5 Urine Opiates Screen Negative Urine Methadone Screen Negative Ur Barbiturates Screen Negative Ur Phencyclidine Scrn Negative Ur Amphetamines Screen Negative U Benzodiazepines Scrn Negative U Oth Cocaine Metabols Negative U Cannabinoids Screen Negative Hepatitis A IgM Ab Hep Bs Antigen Hep B Core IgM Ab Hepatitis C Antibody Blood Type Antibody Screen 02/20/17 02/20/17 02/20/17 06:42 06:42 06:42 WBC 5.1 RBC 2.21 L Hgb 7.5 L Hct 22.0 L MCV 99.6 H D MCH 33.9 H MCHC 34.0 RDW 21.1 H Plt Count 42 L MPV 9.7 Neut % (Auto) 59.7 Lymph % (Auto) 21.6 [place] % (Auto) 13.0 H Eos % (Auto) 5.2 H Baso % (Auto) 0.5 Neut # 3.1 Lymph # 1.1 [place] # 0.7 Eos # 0.3 Baso # 0.0 PT INR APTT Sodium 137 Potassium 4.0 Chloride 112 H Carbon Dioxide 16 L Anion Gap 13 BUN 57 H Creatinine 2.8 H Est GFR ( Amer) 29 Est GFR (Non-Af Amer) 24 Random Glucose 106 Lactic Acid Calcium 7.6 L Phosphorus 4.7 H Magnesium 1.8 Total Bilirubin 1.8 H AST 53 ALT 43 Alkaline Phosphatase 138 H Total Protein 6.1 L Albumin 2.0 L Globulin 4.1 H Albumin/Globulin Ratio 0.5 L Urine Color Urine Clarity Urine pH Ur Specific [place] Urine Protein Urine Glucose (UA) Urine Ketones Urine Blood Urine Nitrate Urine Bilirubin Urine Urobilinogen Ur Leukocyte Esterase Urine WBC (Auto) Urine RBC (Auto) Ur Squamous Epith Cells Urine Bacteria Ur Random Creatinine U Random Total Protein Ur Random Sodium Urine Opiates Screen Urine Methadone Screen Ur Barbiturates Screen Ur Phencyclidine Scrn Ur Amphetamines Screen U Benzodiazepines Scrn U Oth Cocaine Metabols U Cannabinoids Screen Hepatitis A IgM Ab Negative Hep Bs Antigen Negative Hep B Core IgM Ab Negative Hepatitis C Antibody Reactive Blood Type Antibody Screen 02/20/17 08:13 WBC RBC Hgb Hct MCV MCH MCHC RDW Plt Count MPV Neut % (Auto) Lymph % (Auto) [place] % (Auto) Eos % (Auto) Baso % (Auto) Neut # Lymph # [place] # Eos # Baso # PT INR APTT Sodium Potassium Chloride Carbon Dioxide Anion Gap BUN Creatinine Est GFR ( Amer) Est GFR (Non-Af Amer) Random Glucose Lactic Acid Calcium Phosphorus Magnesium Total Bilirubin AST ALT Alkaline Phosphatase Total Protein Albumin Globulin Albumin/Globulin Ratio Urine Color Urine Clarity Urine pH Ur Specific [place] Urine Protein Urine Glucose (UA) Urine Ketones Urine Blood Urine Nitrate Urine Bilirubin Urine Urobilinogen Ur Leukocyte Esterase Urine WBC (Auto) Urine RBC (Auto) Ur Squamous Epith Cells Urine Bacteria Ur Random Creatinine U Random Total Protein 64.0 H Ur Random Sodium Urine Opiates Screen Urine Methadone Screen Ur Barbiturates Screen Ur Phencyclidine Scrn Ur Amphetamines Screen U Benzodiazepines Scrn U Oth Cocaine Metabols U Cannabinoids Screen Hepatitis A IgM Ab Hep Bs Antigen Hep B Core IgM Ab Hepatitis C Antibody Blood Type Antibody Screen Assessment & Plan (1) Thrombocytopenia Assessment and Plan: liver disease, splenic sequestration Status: Acute (2) Anemia Assessment and Plan: will check ferritin, retic count, b12, folate, FOBT to further characterize if pt has CKD; element of anemia of CKD transfusion support PRN Status: Acute (3) Coagulopathy Assessment and Plan: liver disease Status: Acute (4) Splenomegaly Assessment and Plan: secondary to pHTN from liver cirrhosis Thank you for this interesting consult. Status: Acute
[2017-02-21 07:27] LABS: BASO % 0.5 % (0.0-2.0); EOS # 0.3 K/uL (0.0-0.7); EOS % 5.4 % (0.0-4.0); HEMATOCRIT 23.9 % (35.0-51.0); LYMPH % 19.5 % (20.0-40.0); MEAN CORPUSCULAR HEMOGLOBIN 33.8 pg (27.0-31.0); MEAN CORPUSCULAR HGB CONC 34.2 g/dL (33.0-37.0); MEAN PLATELET VOLUME 9.6 fL (7.2-11.7); MONO # 0.6 K/uL (0.0-0.8); MONO % 11.8 % (0.0-10.0); NRBC % 0.1 % (0.0-2.0); RED CELL DISTRIBUTION WIDTH 21.6 % (11.5-14.5); WHITE BLOOD COUNT 4.9 K/uL (4.8-10.8)
--- NOTE | 2017-02-21 07:29 | CP.PCM.PN ---
<Chon Cole - Last Filed: 02/21/17 09:49> Subjective - Date & Time of Evaluation Date of Evaluation: 02/21/17 Time of Evaluation: 07:12 - Subjective Subjective: PGY1 Note for Dr. Cohen HPI: Patient seen and examined at bedside. Doing well. Only complaint is patient is hungry and wants more ivette-fred. States swelling in abdomen, testicles and legs has not diminished at all. Told him he would be oging to IR to get the fluid drained. He is denying an SOB or chest pain at this time. No fever, N/V/D. Objective - Vital Signs/Intake and Output Vital Signs (last 24 hours): Temp Pulse Resp BP Pulse Ox 98 F 83 20 151/71 H 98 02/20/17 23:10 02/21/17 03:57 02/20/17 23:10 02/20/17 23:10 02/20/17 23:10 Intake and Output: 02/21/17 02/21/17 06:59 18:59 Output Total 900 Balance -900 - Labs Labs: 02/20/17 06:42 02/20/17 06:42 PT 17.2 SECONDS (9.7-12.2) H 02/20/17 21:28 INR 1.5 02/20/17 21:28 APTT 47 SECONDS (21-34) H 02/19/17 22:00 - Constitutional Appears: Well, Non-toxic, No Acute Distress - Head Exam Head Exam: ATRAUMATIC, NORMAL INSPECTION, NORMOCEPHALIC - Eye Exam Eye Exam: EOMI - ENT Exam ENT Exam: Mucous Membranes Moist - Respiratory Exam Respiratory Exam: Clear to Ausculation Bilateral, NORMAL BREATHING PATTERN. absent: Rales, Rhonchi, Wheezes - Cardiovascular Exam Cardiovascular Exam: REGULAR RHYTHM, RRR. absent: Bradycardia, Tachycardia, Gallop, Irregular Rhythm, Rubs, Murmur - GI/Abdominal Exam GI & Abdominal Exam: Distended, Soft. absent: Tenderness, Mass, Normal Bowel Sounds - Neurological Exam Neurological Exam: Alert, Awake, Oriented x3 - Psychiatric Exam Psychiatric exam: Normal Affect, Normal Mood - Skin Skin Exam: Dry, Intact, Normal Color, Warm Assessment and Plan - Assessment and Plan (Free Text) Assessment: Ascites * GI ([place]) - F/U reccs * Check B12 and Folate levels * Schedule paracentesis with IR, send fluid for cell count, albumin, protein, cytology, culture * Hold Diuretics * AFP, Hep C viral load and genotype. Refer for transplant evaluation * Nephro ([place]) - F/U reccs * Liver enzymes: * AST/ALT: 60/51, Alkaline phosphatase: 168 * Albumin: 2.0 * Urine random creatinine: 153.7 * Urine Sodium: <5 * Urine protein = 64 * HCV + * Albumin 25gm IV 2x * Compression stockings * Abdominal US * Splenomegaly, pleural effsuin, ascites, hepatomegaly, cirrhosis, sludge, wall thickening * F/U Echocardiogram * CXR - small right pleural effusion * CT: cirrhosis, ascites, calcified hepatic and splenic glaucomas, splenomegaly * Testicular US * Scrotal edema, enlarged L. epididymis, Increased vascularity epididymitis * Daily weight checks * CXR PA/LAT * R. basilar infiltrate, small R. pleural effusion * MELD Score = 24 --> 19.6% estimated 3 month mortality risk * F[place] [facility] [place] Anemia * Needs outpatient colonoscopy * INR - 1.5 Renal insufficiency * Cr/BUN: F/U baseline Cr with [facility] [place] Pancytopenia * Heme ([place]) - F/U reccs * Hold GI PPX for risk of decreasing platelets * No heparin PPX * Ambulate/OOB * Compression stockings <Génesis Cohen V - Last Filed: 02/22/17 02:44> Objective - Vital Signs/Intake and Output Vital Signs (last 24 hours): Temp Pulse Resp BP Pulse Ox 98.2 F 83 20 144/63 98 02/21/17 23:35 02/21/17 23:35 02/21/17 23:35 02/21/17 23:35 02/21/17 23:35 Intake and Output: 02/21/17 02/22/17 18:59 06:59 Intake Total 1300 Output Total 5680 375 Balance -4380 -375 - Labs Labs: 02/21/17 07:12 02/21/17 07:12 PT 17.9 SECONDS (9.7-12.2) H 02/21/17 07:12 INR 1.6 02/21/17 07:12 APTT 47 SECONDS (21-34) H 02/19/17 22:00 Attending/Attestation - Attestation I have personally seen and examined this patient.: Yes I have fully participated in the care of the patient.: Yes I have reviewed all pertinent clinical information, including history, physical exam and plan: Yes Notes (Text): This is late computer entry for 02/21/17. Patient seen, and examined with day-time resident during rounds this morning. Patient comes in [facility] because he feel swollen in his testicles and around his abdomen. Patient reports he [place] [facility] [place] and reports he had paracentesis completed last ; wherein 6 Liters were removed at that time. Patient reports he has felt swollen in his testicles and came back to the hospital this time for 2nd time because he was swollen in his testicles. Paperwork from [facility] received today. Per review, patient underwent paracentesis removal of 6.5 Liters, positive for Hepatitis C, negative for HIV, negative cryoglobium. Cr: 3.2 Confirmed liver cirrhosis. Abdominal US report. Echocardiogram report systolic function intact. Also, note, patient has meningoma which he did not report on admission to use wherein he was recommended for neurosurgery. Given his liver cirrhosis, he is considered high risk per review of the chart. Patient at bedside preoccupied with eating and asking the CP for extra blankets. No new rashes. + Edema including b/l lower extremities, scrotum, pitting. Patient scheduled for IR Paracentesis with Dr. Carroll and ordered 1 bag of platelet transfusion. Fluid studies ordered and patient had 5.5 Liters removed. Nephrology on board-->undergoing renal workup; further studies ordered Assessment/Plan 1) Anasarca * [facility] Paperwork in front of the chart (reviewed by myself) * GI (Dr. Lee)-->help appreciated * Nephrology (Dr. Bettencourt)-->help appreciated * Monitor daily weights and intake and out * Patient is a poor historian but confirms he has a "liver problem" and "hepatitis". Patient denies heart problems and unclear regarding kidney problems * Patient also received 2 PRBC total; given hgb; 7's will need to uncover baseline Hgb/Hct values * Compression stockings * F/U Abdominal US-->mild hepatomegaly, echogenic liver, nodular hepatic contour , gallbladder sludge, gallbladder wall thickening/pericholecytstic edema, no gallstones, negative sonographic Gibson's sign, splenomeglay, small left pleural effusion, ascites * Echocardiogram pending official report; prior echo from [facility] obtained systolic function intact * CXR - small right pleural effusion * CT scan (02/20/17): hepatitc cirrhosis. entensive ascites. Old calcified hepatic and splenic granulomas, moarked splenomegaly, small left pleural effusion: cirrhosis, ascites, calcified hepatic and splenic glaucomas, splenomegaly * Testicular US (02/20/17): severe bilateral scrotal edema; enlarged left epididmyitis with evidence of increased vascularity-->will consult urology for further recommendations * Daily weight checks * CXR PA/LAT (02/20/17): right basilar infiltrate * MELD Score = 24 --> 19.6% estimated 3 month mortality risk-->per GI, recommend transplant eval when stable 2) Pancytopenia * Heme-onc consult (Dr. Sarita Yanez) on consult * received one unit of PRBC on admission and ordered for additional during the day * Platelets low below 50K; no bleeding episodes no acute rashes; patient advised not to scratch * Hx of hepatitis C and hx of cirrhosis * ordered 1 bag of platelets given patient is going to paracentesis with IR 3) Renal insufficiency; Possible hepatorenal syndrome * nephrology consult (Dr. Bettencourt) help appreciated * Cr/BUN: 2.7/61; prior Cr: 3.2 upon discharge at [facility] * unknown baseline; will need retrieve prior records to see baseline * Patient is off diuretic since admission * nephrology consult (Dr. Bettencourt) * monitor intake and output 4) Hepatitis C+ * Abdominal US-->mild hepatomegaly, echogenic liver, nodular hepatic contour, gallbladder sludge, gallbladder wall thickening/pericholecytstic edema, no gallstones, negative sonographic Gibson's sign, splenomeglay, small left pleural effusion, ascites 5) Cirrhosis * Abdominal US-->mild hepatomegaly, echogenic liver, nodular hepatic contour, gallbladder sludge, gallbladder wall thickening/pericholecytstic edema, no gallstones, negative sonographic Gibson's sign, splenomeglay, small left pleural effusion, ascites 6) Thrombocytopenia * Hold GI PPX for risk of decreasing platelets * No heparin dvt secondary to thrombocytopenia * No observed rashes, no abnormal bleeding note; patient counselled to not scratch * Given unit of platelets today 7) Hx of Meningoma * Per review of [facility], recommended for neurosurgical intervention; will need to monitor mental status in light of this finding in addition to cirrhotic liver; Will need to review [facility] DC regarding plan when he was discharged last week regarding whom he was to follow-up with
[2017-02-21 07:32] LABS: INR 1.6
[2017-02-21 07:54] LABS: POTASSIUM 4.3 mmol/L (3.6-5.2)
[2017-02-21 07:56] LABS: ALB/GLOB RATIO 0.4 (1.0-2.1); BILIRUBIN,TOTAL 2.6 mg/dL (0.2-1.3); CALCIUM 7.8 mg/dl (8.6-10.4); TOTAL PROTEIN 6.4 g/dL (6.3-8.3)
[2017-02-21 08:45] LABS: FOLATE 12.1 ng/mL
--- NOTE | 2017-02-21 11:22 | CP.PCM.CON ---
History of Present Illness - History of Present Illness History of Present Illness: 56 yo M w/ no reported pmh previous to past month, presents to ED with worsening scrotal swelling, leg edema and abdominal distention; patient found to have marked renal insufficiency, nephrology being consulted for possible hepatorenal syndrome; Patient reports being in his routine state of health up until a couple of weeks ago when he started having the above said symptoms; [place] [facility] [place] where he underwent abdominal paracentesis with "6 bottles" fluid removed; Patient otherwise denies any difficulty breathing (although I mentioned to him that his breathing is somewhat labored); denies any difficulty ambulating or dyspnea on exertion; denies any decrease in urination but does note dark colored urine lately; Review of Systems - Constitutional Constitutional: absent: Anorexia, Chills, Fever, Weight Loss - EENT Eyes: absent: Change in Vision - Cardiovascular Cardiovascular: absent: Chest Pain, Palpitations - Respiratory Respiratory: absent: Cough Additional comments: although coughing in front of me - Gastrointestinal Gastrointestinal: absent: Diarrhea, Hematochezia, Nausea, Vomiting - Genitourinary Genitourinary: absent: Difficulty Urinating - Musculoskeletal Musculoskeletal: absent: Arthralgias, Back Pain - Integumentary Integumentary: Pruritus. absent: Rash - Psychiatric Psychiatric: absent: Depression Past Patient History - Past Medical History & Family History Past Medical History?: Yes Pertinent Family History: PMH: denies FH: Reports no family history; - Past Social History Smoking Status: Light Smoker < 10 Cigarettes Daily Alcohol: None - MUSCULOSKELETAL/RHEUMATOLOGICAL Hx Falls: No - PSYCHIATRIC Hx Psychophysiologic Disorder: Yes Hx Substance Use: No - SURGICAL HISTORY Hx Surgeries: No - ANESTHESIA Hx Anesthesia: No Meds Allergies/Adverse Reactions: Allergies Allergy/AdvReac Type Severity Reaction Status Date / Time No Known Allergies Allergy Verified 09/23/16 23:47 Physical Exam - Constitutional Appears: Non-toxic, No Acute Distress - Head Exam Head Exam: NORMOCEPHALIC - Eye Exam Eye Exam: Normal appearance - ENT Exam ENT Exam: Mucous Membranes Moist - Neck Exam Neck exam: Positive for: Normal Inspection. Negative for: Lymphadenopathy - Respiratory Exam Respiratory Exam: absent: NORMAL BREATHING PATTERN Additional comments: mild bilateral exp wheezes; no rhonchi or rales; - Cardiovascular Exam Cardiovascular Exam: REGULAR RHYTHM Additional comments: soft systolic murmur; - GI/Abdominal Exam GI & Abdominal Exam: Distended, Soft. absent: Tenderness Additional comments: palpable fluid thrill present; - Exam Exam: Scrotal Swelling - Extremities Exam Extremities exam: Positive for: pedal pulses present Additional comments: Marked bilateral leg edema; - Neurological Exam Neurological exam: Alert - Psychiatric Exam Psychiatric exam: Normal Affect, Normal Mood - Skin Skin Exam: Warm Additional comments: Mild blanching erythema of lower legs; excoriations on bilateral legs; Results - Vital Signs Recent Vital Signs: Last Vital Signs Temp 99 F 02/21/17 08:13 Pulse 77 02/21/17 10:00 Resp 20 02/21/17 08:13 BP 137/62 02/21/17 08:13 Pulse Ox 97 02/21/17 08:13 - Labs Result Diagrams: 02/21/17 07:12 02/21/17 07:12 Labs: Laboratory Results - last 24 hr 02/19/17 02/20/17 02/20/17 22:03 06:42 21:28 WBC RBC Hgb Hct MCV MCH MCHC RDW Plt Count MPV Neut % (Auto) Lymph % (Auto) [place] % (Auto) Eos % (Auto) Baso % (Auto) Neut # Lymph # [place] # Eos # Baso # PT 17.2 H INR 1.5 Sodium Potassium Chloride Carbon Dioxide Anion Gap BUN Creatinine Est GFR ( Amer) Est GFR (Non-Af Amer) Random Glucose Calcium Total Bilirubin AST ALT Alkaline Phosphatase Total Protein Albumin Globulin Albumin/Globulin Ratio Alpha Fetoprotein Vitamin B12 Folate Hepatitis A IgM Ab Negative Hep Bs Antigen Negative Hep B Core IgM Ab Negative Hepatitis C Antibody Reactive Blood Type O POSITIVE Antibody Screen Negative 02/21/17 02/21/17 02/21/17 07:12 07:12 07:12 WBC 4.9 RBC 2.41 L Hgb 8.2 L Hct 23.9 L MCV 99.0 H MCH 33.8 H MCHC 34.2 RDW 21.6 H Plt Count 41 L MPV 9.6 Neut % (Auto) 62.8 Lymph % (Auto) 19.5 L [place] % (Auto) 11.8 H Eos % (Auto) 5.4 H Baso % (Auto) 0.5 Neut # 3.1 Lymph # 1.0 [place] # 0.6 Eos # 0.3 Baso # 0.0 PT 17.9 H INR 1.6 Sodium 140 Potassium 4.3 Chloride 113 H Carbon Dioxide 16 L Anion Gap 15 BUN 58 H Creatinine 2.8 H Est GFR ( Amer) 29 Est GFR (Non-Af Amer) 24 Random Glucose 110 Calcium 7.8 L Total Bilirubin 2.6 H AST 52 ALT 40 Alkaline Phosphatase 98 Total Protein 6.4 Albumin 2.0 L Globulin 4.5 H Albumin/Globulin Ratio 0.4 L Alpha Fetoprotein Vitamin B12 834 Folate 12.1 Hepatitis A IgM Ab Hep Bs Antigen Hep B Core IgM Ab Hepatitis C Antibody Blood Type Antibody Screen 02/21/17 07:12 WBC RBC Hgb Hct MCV MCH MCHC RDW Plt Count MPV Neut % (Auto) Lymph % (Auto) [place] % (Auto) Eos % (Auto) Baso % (Auto) Neut # Lymph # [place] # Eos # Baso # PT INR Sodium Potassium Chloride Carbon Dioxide Anion Gap BUN Creatinine Est GFR ( Amer) Est GFR (Non-Af Amer) Random Glucose Calcium Total Bilirubin AST ALT Alkaline Phosphatase Total Protein Albumin Globulin Albumin/Globulin Ratio Alpha Fetoprotein 6.4 Vitamin B12 Folate Hepatitis A IgM Ab Hep Bs Antigen Hep B Core IgM Ab Hepatitis C Antibody Blood Type Antibody Screen - Impressions Impression: Urine micro (directly observed) - Numerous RBC's (>50/hpf), many classically dysmorphic; occasional coarse granular casts; Assessment & Plan (1) Acute renal failure Assessment and Plan: Baseline renal function unknown; however, with kidneys not appearing atrophic on imaging, will assume acute renal failure; etiology may be multi-factorial; What is most glaring is what appears to be a nephritic process with dysmorphic RBC's, proteinuria and htn; Very low Ur Na indicative of pre-renal picture perceived by kidneys and in setting of anasarca with high BP need to assess R heart function; cannot rule out superimposed hepatorenal process but this is generally a diagnosis of exclusion; -repeating urine lytes after prbc transfusion -if Ur Na still very low, can try diuresis w/ IV lasix -checking random Ur protein and creatinine (needs to be on same sample) -renal and bladder US after paracentesis Status: Acute (2) Glomerulonephritis Assessment and Plan: As mentioned above, consistent with a nephritic process; possible etiologies include MPGN and even cryoglobulinemia (neg serum assay doesn't rule it out as the collection and transfer of specimen is notoriously flawed) in the setting of positive hep C; alternatively, patient can have IgA nephropathy which is often seen associated with liver disease; -checking C3 and C4 -checking rheumatoid factor and cyroglobulin -ABIGAIL -quantified proteinuria as above -patient ideally needs renal biopsy but is not agreeable to such a procedure at this time; will continue to public relations counselor him in this regard Status: Acute (3) Hepatitis C antibody positive in blood Assessment and Plan: Patient denies IVDA or previous blood transfusions; nevertheless, agree with pursuing further workup for hep C; if patient is having hep C induced glomerulonephritis, then the mainstay of therapy is to treat the hep C; Status: Acute (4) HTN (hypertension) Assessment and Plan: Mainly elevation of SBP; will benefit from diuresis but will hold off until repeat Ur Na available as may need to give trial of intravascular volume expansion with albumin; Status: Acute (5) Anemia Assessment and Plan: s/p 2 u prbc transfusion without expected improvement in Hgb; agree with hemolysis workup; Status: Acute (6) Ascites Assessment and Plan: With anasarca; in setting of liver dysfunction; getting abd paracentesis today; agree with giving IV albumin post-transfusion to avoid hypotension; Status: Acute
[2017-02-21 11:24] LABS: RBC URINE 391 /hpf (0-3); URINE BACTERIA OCC (<OCC); URINE BILIRUBIN NEGATIVE (NEGATIVE); URINE BLOOD 2+ (NEGATIVE); URINE COLOR Amber (YELLOW); URINE GLUCOSE (UA) NORMAL (Normal); URINE KETONE NEGATIVE (NEGATIVE); URINE LEUKOCYTE ESTERASE 1+ Leu/uL (Negative); URINE PROTEIN 1+ mg/dL (NEGATIVE); URINE UROBILINOGEN NORMAL mg/dL (0.2-1.0); WBC URINE 93 /hpf (0-5)
[2017-02-21 11:39] LABS: CREATININE, RANDOM URINE 119.9 mg/dL
--- NOTE | 2017-02-21 12:27 | PCM.SURG1 ---
Surgeon's Initial Post Op Note - Surgeon's Notes Surgeon: Saleem Carroll MD Change Over: NONE Type of Anesthesia: Local Pre-Operative Diagnosis: Ascites Operative Findings: US showed a moderate amount of ascites Post-Operative Diagnosis: Ascites Operation Performed: US guided paracentesis. Specimen/Specimens Removed: 5.5 liters of straw colored fluid Estimated Blood Loss: EBL {In ML}: 0 Blood Products Given: N/A Drains Used: No Drains Post-Op Condition: Fair Date of Surgery/Procedure: 02/21/17 Time of Surgery/Procedure: 12:20
--- NOTE | 2017-02-21 12:33 | US ---
Date of Procedure: 02/21/2017 PROCEDURE: Ultrasound-guided paracentesis, CPT 42678 Medications: 7 cc 1% Lidocaine HISTORY: Ascites, abdominal pain, cirrhosis TECHNIQUE: Following informed consent , the patient was placed supine on the stretcher and the site was marked. A limited abdominal ultrasound was performed that showed a large amount of intra-abdominal fluid. Procedural time out was called and the Pt's abdomen was marked and prepped and draped in the usual sterile fashion. Ultrasound-guided large volume paracentesis performed. A total of 5.5 liters of straw colored fluid was removed without complication. Fluid specimen was sent for culture, sensitivity, cytology and chemistries. IMPRESSION: Ultrasound-guided large volume paracentesis.
[2017-02-21 14:15] LABS: BODY FLUID TYPE PERITONEAL/ASCITES
[2017-02-21 15:35] LABS: BF GROSS APPEARANCE SL CLOUDY (CLEAR)
--- NOTE | 2017-02-21 18:35 | CARD ---
APPROVED REPORT EXAM: Two-dimensional and M-mode echocardiogram with Doppler and color Doppler. Other Information Quality : GoodRhythm : NSR INDICATION Renal Insufficiency RISK FACTORS Smoking 2D DIMENSIONS IVSd0.9 (0.7-1.1cm)LVDd5.0 (3.9-5.9cm) PWd1.1 (0.7-1.1cm)IVSs4.0 (0.8-1.2cm) M-Mode DIMENSIONS Left Atrium (MM)4.37 (2.5-4.0cm)Aortic Root3.28 (2.2-3.7cm) Aortic Cusp Exc.2.49 (1.5-2.0cm) Mitral Valve MV E Ygbahcuc012.9cm/sMV A Slksxijk24.9cm/sE/A ratio2.3 TDI E/Lateral E'0.0E/Medial E'0.0 Tricuspid Valve TR Peak Bdgfwjnn022kk/sTR Peak Gr.51qbBoSUMP73qeJu LEFT VENTRICLE The left ventricle is normal size. Left ventricle systolic function is normal. The Ejection Fraction is 60-65%. There is normal LV segmental wall motion. The left ventricular diastolic function is normal. No left ventricle thrombus noted on this study. There is no ventricular septal defect visualized. RIGHT VENTRICLE The right ventricle is normal size. The right ventricular systolic function is normal. ATRIA The left atrium size is normal. The right atrium size is normal. The interatrial septum is intact with no evidence for an atrial septal defect. AORTIC VALVE The aortic valve is normal in structure. No aortic regurgitation is present. There is no aortic valvular stenosis. There is no aortic valvular vegetation. MITRAL VALVE The mitral valve is normal in structure. There is no mitral valve stenosis. Mitral regurgitation is mild. TRICUSPID VALVE There is mild tricuspid regurgitation. There is no tricuspid valve stenosis. PULMONIC VALVE The pulmonary valve is normal in structure. GREAT VESSELS The aortic root is normal in size. <Conclusion> Left ventricle systolic function is normal. The Ejection Fraction is 60-65%. The right ventricular systolic function is normal. Mitral regurgitation is mild. There is mild tricuspid regurgitation.
--- NOTE | 2017-02-21 19:44 | CARD ---
APPROVED REPORT EKG Measurement Heart [id number] AL [id number] <Conclusion> Normal sinus rhythm Normal ECG
[2017-02-21] MEDS ORDERED: Bisacodyl 5mg EC Tab PO ONE (22:55)
[2017-02-22] MEDS: Albumin Human 25% (12.5 gm/50 ml) IV SCH ×6 (06:27→20:03)
[2017-02-22 08:25] LABS: BASO % 0.6 % (0.0-2.0); EOS # 0.3 K/uL (0.0-0.7); EOS % 4.8 % (0.0-4.0); HEMATOCRIT 24.1 % (35.0-51.0); LYMPH # 1.2 K/uL (1.0-4.3); MEAN CELL VOLUME 98.7 fL (80.0-94.0); MEAN CORPUSCULAR HEMOGLOBIN 33.5 pg (27.0-31.0); MEAN PLATELET VOLUME 9.3 fL (7.2-11.7); MONO # 0.6 K/uL (0.0-0.8); MONO % 11.7 % (0.0-10.0); NRBC % 0.1 % (0.0-2.0); RED CELL DISTRIBUTION WIDTH 20.9 % (11.5-14.5); WHITE BLOOD COUNT 5.2 K/uL (4.8-10.8)
[2017-02-22 09:11] LABS: POTASSIUM 4.3 mmol/L (3.6-5.2)
[2017-02-22 09:13] LABS: ALB/GLOB RATIO 0.5 (1.0-2.1); BILIRUBIN,TOTAL 1.8 mg/dL (0.2-1.3)
[2017-02-22 09:14] LABS: CALCIUM 7.7 mg/dl (8.6-10.4); MAGNESIUM 1.7 mg/dL (1.6-2.3); PHOSPHOROUS 4.2 mg/dL (2.5-4.5)
--- NOTE | 2017-02-22 09:39 | US ---
PROCEDURE: Ultrasound of the Kidneys HISTORY: acute renal failure COMPARISON: None available. TECHNIQUE: Grayscale imaging was performed. FINDINGS: RIGHT KIDNEY: Measures: 13.2 cm. Normal in size, contour with diffuse increased echogenicity. No stone, solid mass lesion or hydronephrosis visualized. LEFT KIDNEY: Measures: 15.1 cm. Normal in size, contour with diffuse increased echogenicity. No stone, solid mass lesion or hydronephrosis visualized. OTHER FINDINGS: Incidental note is made of free fluid in the right upper quadrant. IMPRESSION: 1. Medical renal disease. 2. Ascites.
[2017-02-22 12:17] LABS: CRYOGLOBULIN NEGATIVE (NEGATIVE)
--- NOTE | 2017-02-22 13:07 | CP.PCM.PN ---
Subjective - Date & Time of Evaluation Date of Evaluation: 02/22/17 Time of Evaluation: 13:04 - Subjective Subjective: S/P Paracentesis. Feels well. Denies abdominal pain or dyspnea. Lost 18 lbs No diuretics- possible HRS- renal help appreciated Objective - Vital Signs/Intake and Output Vital Signs (last 24 hours): Temp Pulse Resp BP Pulse Ox 98.2 F 79 20 135/55 L 97 02/22/17 07:20 02/22/17 07:20 02/22/17 07:20 02/22/17 07:20 02/22/17 07:20 Intake and Output: 02/22/17 02/22/17 06:59 18:59 Output Total 870 Balance -870 - Medications Medications: Current Medications Albumin Human (Albumin Human 25% (12.5 Gm/50 Ml)) 12.5 gm IV Q3H KARL Stop: 02/23/17 03:01 Last Admin: 02/22/17 10:08 Dose: 12.5 gm - Labs Labs: 02/22/17 08:11 02/22/17 08:11 PT 17.9 SECONDS (9.7-12.2) H 02/21/17 07:12 INR 1.6 02/21/17 07:12 APTT 47 SECONDS (21-34) H 02/19/17 22:00 - Constitutional Appears: Chronically Ill - Head Exam Head Exam: NORMOCEPHALIC - Eye Exam Eye Exam: absent: Scleral icterus - Respiratory Exam Respiratory Exam: Clear to Ausculation Bilateral - Cardiovascular Exam Cardiovascular Exam: REGULAR RHYTHM - GI/Abdominal Exam GI & Abdominal Exam: Distended, Soft. absent: Tenderness Assessment and Plan (1) Anasarca Status: Acute (2) Anemia Status: Acute (3) Ascites Assessment & Plan: Fluid analysis reviewed. Not SBP. No diuretics in light of renal failure. Management of fluids, albumin, etc deferred to Renal. Status: Acute (4) Liver cirrhosis Assessment & Plan: hepatitis C evaluation requested Status: Acute (5) Renal insufficiency Status: Acute
--- NOTE | 2017-02-22 14:54 | CP.PCM.PN ---
<Chon Cole - Last Filed: 02/22/17 20:19> Subjective - Date & Time of Evaluation Date of Evaluation: 02/22/17 Time of Evaluation: 14:52 - Subjective Subjective: PGY1 Note for Dr. Cohen HPI: Patient seen and examined at bedside. Doing well with no complaints at this time. Frustrated he is requiring more tests for evaluation of his condition. Pleased that the swelling has decreased in his belly. Concerned that the swelling is still present in his testicles. Told him we would consult urology. He was unaware that [place] [facility] [place] M[place]. No other complaints Objective - Vital Signs/Intake and Output Vital Signs (last 24 hours): Temp Pulse Resp BP Pulse Ox 98.2 F 79 20 135/55 L 97 02/22/17 07:20 02/22/17 07:20 02/22/17 07:20 02/22/17 07:20 02/22/17 07:20 Intake and Output: 02/22/17 02/22/17 06:59 18:59 Output Total 870 Balance -870 - Medications Medications: Current Medications Albumin Human (Albumin Human 25% (12.5 Gm/50 Ml)) 12.5 gm IV Q3H KARL Stop: 02/23/17 03:01 Last Admin: 02/22/17 13:12 Dose: 12.5 gm - Labs Labs: 02/22/17 08:11 02/22/17 08:11 PT 17.9 SECONDS (9.7-12.2) H 02/21/17 07:12 INR 1.6 02/21/17 07:12 APTT 47 SECONDS (21-34) H 02/19/17 22:00 - Constitutional Appears: Well, Non-toxic, No Acute Distress - Head Exam Head Exam: ATRAUMATIC, NORMAL INSPECTION, NORMOCEPHALIC - Eye Exam Eye Exam: EOMI - ENT Exam ENT Exam: Mucous Membranes Moist - Respiratory Exam Respiratory Exam: Rales (globally), NORMAL BREATHING PATTERN - Cardiovascular Exam Cardiovascular Exam: REGULAR RHYTHM - GI/Abdominal Exam GI & Abdominal Exam: Soft, Normal Bowel Sounds. absent: Distended, Tenderness - Neurological Exam Neurological Exam: Alert, Awake, Oriented x3 - Psychiatric Exam Psychiatric exam: Normal Affect, Normal Mood - Skin Skin Exam: Dry, Intact, Normal Color, Warm Assessment and Plan - Assessment and Plan (Free Text) Assessment: HCV * ID ([place]) * Possible outpt therapy upon EtOH cessation * GI ([place]) * AFP, Hep C viral load and genotype. Refer for transplant evaluation Meningioma * CT Head - Meningioma w/ surrounding edema * F/U MRI brain w/w/o contrast Possible Syphilis * +RPR * F/U FTA-ABS Cough * CT chest - R. upper lobe pulm nodules, b/l pleural effusions Ascites * GI ([place]) * Check B12 and Folate levels * Schedule paracentesis with IR, send fluid for cell count, albumin, protein, cytology, culture * Hold Diuretics * Liver enzymes: * AST/ALT: 60/51, Alkaline phosphatase: 168 * Albumin: 2.0 * Albumin 25gm IV 2x * Compression stockings * Abdominal US * Splenomegaly, pleural effsuin, ascites, hepatomegaly, cirrhosis, sludge, wall thickening * Echocardiogram * EF 60-65 * CXR - small right pleural effusion * CT: cirrhosis, ascites, calcified hepatic and splenic glaucomas, splenomegaly * Testicular US * Scrotal edema, enlarged L. epididymis, Increased vascularity epididymitis * Daily weight checks * CXR PA/LAT * R. basilar infiltrate, small R. pleural effusion * MELD Score = 24 --> 19.6% estimated 3 month mortality risk ARF * Nephro ([place]) * repeating urine lytes after prbc transfusion * if Ur Na still very low, can try diuresis w/ IV lasix * checking random Ur protein and creatinine (needs to be on same sample) * renal and bladder US after paracentesis Glomerulonephritis * Nephro ([place]) * checking C3 and C4 * checking rheumatoid factor and cyroglobulin * ABIGAIL * quantified proteinuria as above * patient ideally needs renal biopsy but is not agreeable to such a procedure at this time; will continue to adult school counselor him in this regard Anemia * Needs outpatient colonoscopy * INR - 1.5 Pancytopenia * Heme ([place]) * Hold GI PPX for risk of decreasing platelets * No heparin PPX * Ambulate/OOB * Compression stockings <Génesis Cohen V - Last Filed: 02/28/17 15:22> Objective - Vital Signs/Intake and Output Vital Signs (last 24 hours): Temp Pulse Resp BP Pulse Ox 98.4 F 79 18 142/65 20 L 02/25/17 08:00 02/25/17 08:00 02/25/17 08:00 02/25/17 08:00 02/25/17 08:00 - Labs Labs: 02/25/17 06:21 02/25/17 06:21 PT 17.9 SECONDS (9.7-12.2) H 02/21/17 07:12 INR 1.6 02/21/17 07:12 APTT 47 SECONDS (21-34) H 02/19/17 22:00 Attending/Attestation - Attestation I have personally seen and examined this patient.: Yes I have fully participated in the care of the patient.: Yes I have reviewed all pertinent clinical information, including history, physical exam and plan: Yes Notes (Text): This is late computer entry for 02/22/17. Patient seen, and examined with day-time resident during rounds this morning. Patient comes in [facility] because he feel swollen in his testicles and around his abdomen. Patient reports he [place] [facility] [place] and reports he had paracentesis completed last ; wherein 6 Liters were removed at that time. Patient reports he has felt swollen in his testicles and came back to the hospital this time for 2nd time because he was swollen in his testicles. Patient completed paracentesis yesterday and platelet transfusion; 5.5 Liters removed. Also, note, patient has meningoma which he did not report on admission to use wherein he was recommended for neurosurgery. Given his liver cirrhosis, he is considered high risk per review of the chart. Patient ordered for CT head to f/ u meningoma. Patient does not believe he has one and was surprised when we told him. Patient continues to have cough and +rales on exam; patient ordered for CT Chest. Infectious Disease consult for positive for hepatitis C and + RPR. Assessment/Plan 1) Anasarca * [facility] Paperwork in front of the chart (reviewed by myself) * GI (Dr. Lee)-->help appreciated * Nephrology (Dr. Bettencourt)-->help appreciated * Monitor daily weights and intake and out * Patient is a poor historian but confirms he has a "liver problem" and "hepatitis". Patient denies heart problems and unclear regarding kidney problems * Patient also received 2 PRBC total; given hgb; 7's will need to uncover baseline Hgb/Hct values * Compression stockings * F/U Abdominal US-->mild hepatomegaly, echogenic liver, nodular hepatic contour , gallbladder sludge, gallbladder wall thickening/pericholecytstic edema, no gallstones, negative sonographic Gibson's sign, splenomeglay, small left pleural effusion, ascites * Echocardiogram official report in the computer; prior echo from [facility] obtained systolic function intact * CXR - small right pleural effusion * CT scan (02/20/17): hepatitc cirrhosis. entensive ascites. Old calcified hepatic and splenic granulomas, moarked splenomegaly, small left pleural effusion: cirrhosis, ascites, calcified hepatic and splenic glaucomas, splenomegaly * Ordered for CT Chest today * Testicular US (02/20/17): severe bilateral scrotal edema; enlarged left epididmyitis with evidence of increased vascularity-->will consult urology for further recommendations * Daily weight checks * CXR PA/LAT (02/20/17): right basilar infiltrate * MELD Score = 24 --> 19.6% estimated 3 month mortality risk-->per GI, recommend transplant eval when stable 2) Pancytopenia * Heme-onc consult (Dr. Sarita Yanez) on consult * received one unit of PRBC on admission and ordered for additional during the day * Platelets low below 50K; no bleeding episodes no acute rashes; patient advised not to scratch * Hx of hepatitis C and hx of cirrhosis * ordered 1 bag of platelets given patient is going to paracentesis with IR 3) Renal insufficiency; Possible hepatorenal syndrome * nephrology consult (Dr. Bettencourt) help appreciated * Patient is off diuretic since admission * monitor intake and output * management per nephrology 4) Hepatitis C+ * Abdominal US-->mild hepatomegaly, echogenic liver, nodular hepatic contour, gallbladder sludge, gallbladder wall thickening/pericholecytstic edema, no gallstones, negative sonographic Gibson's sign, splenomeglay, small left pleural effusion, ascites * GI on board * Infectious disease consult 5) Cirrhosis * Abdominal US-->mild hepatomegaly, echogenic liver, nodular hepatic contour, gallbladder sludge, gallbladder wall thickening/pericholecytstic edema, no gallstones, negative sonographic Gibson's sign, splenomeglay, small left pleural effusion, ascites 6) Thrombocytopenia * Hold GI PPX for risk of decreasing platelets * No heparin dvt secondary to thrombocytopenia * No observed rashes, no abnormal bleeding note; patient counselled to not scratch * Given unit of platelets today 7) Hx of Meningoma * Per review of [facility], recommended for neurosurgical intervention; will need to monitor mental status in light of this finding in addition to cirrhotic liver; * Repeat CT head today
[2017-02-22 16:04] LABS: RAPID PLASMA REAGIN REACTIVE (NONREACTIVE)
--- NOTE | 2017-02-22 16:27 | CT ---
PROCEDURE: CT scan brain dated 02/22/2017. HISTORY: Follow-up meningioma COMPARISON: None available. TECHNIQUE: Axial computed tomography images were obtained through the head/brain without intravenous contrast. Radiation dose: Total exam DLP = 1961 mGy-cm. This CT exam was performed using one or more of the following dose reduction techniques: Automated exposure control, adjustment of the mA and/or kV according to patient size, and/or use of iterative reconstruction technique. FINDINGS: HEMORRHAGE: No definitive CT evidence of acute parenchymal, subarachnoid or extra-axial hemorrhage. BRAIN: There is a rounded approximately 2.42 AP x 2.2 trans by x 1.9 cc cm hyperdense mass lesion which appears to arise from the left sphenoid ridge extending superiorly into the left inferior frontal lobe. The lesion is surrounded by a relatively wide margin of low-attenuation vasogenic white matter edema. 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 Followup of pre and post-contrast MRI of the brain is recommended for confirmation and to exclude other pathology. . Note that edema posteriorly along lateral on margin of the external capsule of the left basal ganglia. And the tumor and surrounding tendon edema exert surrounding mass effect with compression of the left frontal horn and mild compressive effects on the overlying brain parenchyma/sulci. No other extra-axial or parenchymal masses are identified. Mild generalized volume loss. VENTRICLES: As above. No evidence of obstructive hydrocephalus CALVARIUM: No acute calvarial fractures. PARANASAL SINUSES: Mild mucosal thickening left maxillary antrum , several left-sided and a few right-sided ethmoid air cells. Minimal extension of mucosal thickening into the left aspect of the frontal sinus. Minimal mucosal thickening right maxillary MASTOID AIR CELLS: Unremarkable as visualized. No inflammatory changes. OTHER FINDINGS: None. IMPRESSION: Approximately 2.4 cm lesion in the right inferior frontal region which appears to arise from the sphenoid ridge consistent with an extra-axial meningioma. This lesion is surrounded by vasogenic white matter edema within the inferior frontal lobe extending posteriorly along the external capsule left basal ganglia. Mild mass effect as described. Followup pre and post-contrast MRI of the brain recommended for confirmation. Case discussed with Dunia English at approximately 4:20 p.m. with written down and read back verification.
--- NOTE | 2017-02-22 16:50 | CT ---
PROCEDURE: CT Chest without contrast HISTORY: Cough COMPARISON: None. TECHNIQUE: Contiguous axial images were obtained through the chest without intravenous contrast enhancement. Sagittal and coronal reconstructions were performed. Radiation dose (DLP): 674.84 mGy-cm. This CT exam was performed using one or more of the following dose reduction techniques: Automated exposure control, adjustment of the mA and/or kV according to patient size, and/or use of iterative reconstruction technique. FINDINGS: LUNGS: Small bilateral pleural effusion, left greater than right. Bilateral lower lobe compressive atelectasis, left greater than right. No james infiltrate. There are 2 nodules in the anterior segment of the right upper lobe, each 5-6 mm. There is no other pulmonary mass identified. Please note that evaluation of the pulmonary parenchyma is limited by respiratory motion artifact. MEDIASTINUM: Unremarkable thoracic aorta. No aneurysm. Normal sized heart. Main pulmonary artery unremarkable. No vascular congestion. No mediastinal lymphadenopathy. Right epicardial lymph node, 1.3 cm in short axis. Paraesophageal varices are noted. PLEURA: Small bilateral pleural effusion, as above. Calcified pleural plaque on right diaphragmatic pleura. BONES: No fracture. No destructive lesion. UPPER ABDOMEN: Ascites. Hepatic cirrhosis. Splenomegaly. Atrophic right hepatic lobe. OTHER FINDINGS: Bilateral gynecomastia. Generalized anasarca. IMPRESSION: Hepatic cirrhosis with splenomegaly and generalized ascites. Small bilateral pleural effusion and lower lobe compressive atelectasis, left greater than right. Several small right upper lobe pulmonary nodules, nonspecific. Anasarca.
--- NOTE | 2017-02-22 18:40 | CP.PCM.CON ---
History of Present Illness - History of Present Illness History of Present Illness: underwent paracentesis today denies fever abd pain cultures pending 56 year old male with no past medical history (as per patient) who presents to the ED with complaints of bilateral leg swelling, distention of the abdomen and b/l testicular swelling that started 4 days ago. Patient reports that he has had similar episodes in the past but he is unsure of the onsets of his symptoms. Patient reports he was admitted to [facility] last week for the same symptoms, where he had a paracentesis, draining about 6 bottles of fluid. Patient admits to abdominal pain, intermittent cough and dyspnea on exertion but denies fever, chills, nausea, vomiting, b/l leg pain, SOB, orthopnea. Patient is a poor historian. PMD: None PMHx: Denies PSHx: Denies FHx: unknown Medications: Denies Allergies: NKDA Social history: Homeless, admits to smoking (10 cigarettes for per day) denies ETOH and illicit drug use Review of Systems - Review of Systems All systems: reviewed and no additional remarkable complaints except - Constitutional Constitutional: As Per HPI - EENT Eyes: As Per HPI Past Patient History - Past Medical History & Family History Past Medical History?: Yes - Past Social History Smoking Status: Light Smoker < 10 Cigarettes Daily Alcohol: None - MUSCULOSKELETAL/RHEUMATOLOGICAL Hx Falls: No - PSYCHIATRIC Hx Psychophysiologic Disorder: Yes Hx Substance Use: No - SURGICAL HISTORY Hx Surgeries: No - ANESTHESIA Hx Anesthesia: No Meds Allergies/Adverse Reactions: Allergies Allergy/AdvReac Type Severity Reaction Status Date / Time No Known Allergies Allergy Verified 09/23/16 23:47 - Medications Medications: Current Medications Albumin Human (Albumin Human 25% (12.5 Gm/50 Ml)) 12.5 gm IV Q3H KARL Stop: 02/23/17 03:01 Last Admin: 02/22/17 18:29 Dose: 12.5 gm Physical Exam - Constitutional Appears: Chronically Ill - Head Exam Head Exam: ATRAUMATIC, NORMOCEPHALIC - Eye Exam Eye Exam: PERRL - ENT Exam ENT Exam: Mucous Membranes Dry - Neck Exam Neck exam: Negative for: Lymphadenopathy - Respiratory Exam Respiratory Exam: Decreased Breath Sounds, Clear to Auscultation Bilateral - Cardiovascular Exam Cardiovascular Exam: REGULAR RHYTHM, +S1, +S2 - GI/Abdominal Exam GI & Abdominal Exam: Diminished Bowel Sounds, Distended. absent: Rigid - Rectal Exam Rectal Exam: Deferred - Exam Exam: NORMAL INSPECTION - Extremities Exam Extremities exam: Positive for: pedal edema. Negative for: calf tenderness, tenderness, pedal pulses present - Back Exam Back exam: absent: CVA tenderness (L), CVA tenderness (R) - Neurological Exam Neurological exam: Alert, CN II-XII Intact, Oriented x3, Reflexes Normal - Psychiatric Exam Psychiatric exam: Normal Mood - Skin Skin Exam: Dry Results - Vital Signs Recent Vital Signs: Last Vital Signs Temp 97.9 F 02/22/17 15:00 Pulse 77 02/22/17 15:00 Resp 20 02/22/17 15:00 BP 138/58 L 02/22/17 15:00 Pulse Ox 100 02/22/17 15:00 - Labs Result Diagrams: 02/22/17 08:11 02/22/17 08:11 Labs: Laboratory Results - last 24 hr 02/21/17 02/21/17 02/22/17 11:23 11:23 07:16 WBC RBC Hgb Hct MCV MCH MCHC RDW Plt Count MPV Neut % (Auto) Lymph % (Auto) Saunders % (Auto) Eos % (Auto) Baso % (Auto) Neut # Lymph # Saunders # Eos # Baso # Sodium Potassium Chloride Carbon Dioxide Anion Gap BUN Creatinine Est GFR ( Amer) Est GFR (Non-Af Amer) Random Glucose Calcium Phosphorus Magnesium Total Bilirubin AST ALT Alkaline Phosphatase Total Protein Albumin Globulin Albumin/Globulin Ratio Stool Occult Blood Negative Serum Cryoglobulins Negative ABIGAIL 6 Profile Negative RPR Titer RPR HIV 1&2 Antibody Screen 02/22/17 02/22/17 02/22/17 08:11 08:11 08:30 WBC 5.2 RBC 2.44 L Hgb 8.2 L Hct 24.1 L MCV 98.7 H MCH 33.5 H MCHC 34.0 RDW 20.9 H Plt Count 51 L MPV 9.3 Neut % (Auto) 59.9 Lymph % (Auto) 23.0 Saunders % (Auto) 11.7 H Eos % (Auto) 4.8 H Baso % (Auto) 0.6 Neut # 3.1 Lymph # 1.2 Saunders # 0.6 Eos # 0.3 Baso # 0.0 Sodium 140 Potassium 4.3 Chloride 113 H Carbon Dioxide 16 L Anion Gap 15 BUN 56 H Creatinine 2.8 H Est GFR ( Amer) 29 Est GFR (Non-Af Amer) 24 Random Glucose 93 Calcium 7.7 L Phosphorus 4.2 Magnesium 1.7 Total Bilirubin 1.8 H AST 47 ALT 40 Alkaline Phosphatase 95 Total Protein 6.0 L Albumin 1.9 L Globulin 4.0 H Albumin/Globulin Ratio 0.5 L Stool Occult Blood Serum Cryoglobulins ABIGAIL 6 Profile RPR Titer RPR HIV 1&2 Antibody Screen Negative 02/22/17 08:30 WBC RBC Hgb Hct MCV MCH MCHC RDW Plt Count MPV Neut % (Auto) Lymph % (Auto) Saunders % (Auto) Eos % (Auto) Baso % (Auto) Neut # Lymph # Saunders # Eos # Baso # Sodium Potassium Chloride Carbon Dioxide Anion Gap BUN Creatinine Est GFR ( Amer) Est GFR (Non-Af Amer) Random Glucose Calcium Phosphorus Magnesium Total Bilirubin AST ALT Alkaline Phosphatase Total Protein Albumin Globulin Albumin/Globulin Ratio Stool Occult Blood Serum Cryoglobulins ABIGAIL 6 Profile RPR Titer 1:4 H RPR Reactive H HIV 1&2 Antibody Screen Assessment & Plan (1) Acute renal failure Status: Acute (2) Anasarca Status: Acute (3) Anemia Status: Acute (4) Ascites Status: Acute (5) Coagulopathy Status: Acute (6) Glomerulonephritis Status: Acute (7) HTN (hypertension) Status: Acute (8) Hepatitis C antibody positive in blood Status: Acute (9) Liver cirrhosis Status: Acute (10) Renal insufficiency Status: Acute (11) Splenomegaly Status: Acute (12) Thrombocytopenia Status: Acute (13) Volume overload Status: Acute (14) Leg swelling Status: Acute (15) Venous stasis Status: Acute - Assessment and Plan (Free Text) Assessment: + RPR AWAIT TITERS AND FTA-ABS + HEP C POSSIBLE OUT PT RX UPON ETOH CESSATION CIRRHOSIS ASCITES R/O MALIGNANCY CKD
--- NOTE | 2017-02-22 19:07 | CP.PCM.PN ---
Subjective - Date & Time of Evaluation Date of Evaluation: 02/22/17 Time of Evaluation: 13:00 - Subjective Subjective: Patient denies any difficulty breathing; urinating well; Objective - Vital Signs/Intake and Output Vital Signs (last 24 hours): Temp Pulse Resp BP Pulse Ox 97.9 F 77 20 138/58 L 100 02/22/17 15:00 02/22/17 15:00 02/22/17 15:00 02/22/17 15:00 02/22/17 15:00 Intake and Output: 02/22/17 02/23/17 18:59 06:59 Intake Total 480 Output Total 375 Balance 105 - Medications Medications: Current Medications Albumin Human (Albumin Human 25% (12.5 Gm/50 Ml)) 12.5 gm IV Q3H KARL Stop: 02/23/17 03:01 Last Admin: 02/22/17 18:29 Dose: 12.5 gm - Labs Labs: 02/22/17 08:11 02/22/17 08:11 PT 17.9 SECONDS (9.7-12.2) H 02/21/17 07:12 INR 1.6 02/21/17 07:12 APTT 47 SECONDS (21-34) H 02/19/17 22:00 - Constitutional Appears: Non-toxic, No Acute Distress - Head Exam Head Exam: NORMAL INSPECTION - ENT Exam ENT Exam: Mucous Membranes Moist - Respiratory Exam Respiratory Exam: Wheezes. absent: Rales, Respiratory Distress - Cardiovascular Exam Cardiovascular Exam: RRR, +S1, +S2 - GI/Abdominal Exam GI & Abdominal Exam: Distended, Soft. absent: Tenderness - Extremities Exam Additional comments: anasarca; - Neurological Exam Neurological Exam: Alert, Awake - Psychiatric Exam Psychiatric exam: Normal Affect, Normal Mood - Skin Skin Exam: Normal Color, Warm. 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 (Ab positive although still awaiting viral load); neg ABIGAIL goes against SLE; IgA nephropathy wouldn't give marked complement consumption; HIV neg; RPR also positive, awaiting FTA, although renal manifestation of syphilis usually presents as nephrotic syndrome; Patient ideally needs renal biopsy to guide therapy but is refusing; if hep C viral load high, will need treatment; -awaiting rheumatoid factor, cryoglobulin assays -checking SPEP, serum free light chains and 24 hr Ur protein electrophoresis ( large kidneys, looking for evidence of monoclonal immunoglobulin deposition disease, although not typical of nephritic presentation) Status: Acute (3) Hepatitis C antibody positive in blood Assessment & Plan: As mentioned above, can explain GN; f/u with additional workup; Status: Acute (4) HTN (hypertension) Assessment & Plan: Mainly systolic elevation; will likely start diuretic and RAJENDRA blockade after assessing post volume expansion; Status: Acute (5) Anemia Assessment & Plan: Hgb stable; checking iron studies; Status: Acute (6) Ascites Assessment & Plan: Still with significant ascites on imaging despite large volume paracentesis yesterday; may need to repeat in another pocket of fluid; Status: Acute
[2017-02-23] MEDS: Albumin Human 25% (12.5 gm/50 ml) IV SCH ×2 (00:08→03:00)
[2017-02-23 08:13] LABS: BASO % 0.5 % (0.0-2.0); EOS # 0.2 K/uL (0.0-0.7); EOS % 5.3 % (0.0-4.0); HEMATOCRIT 23.3 % (35.0-51.0); MEAN CELL VOLUME 98.5 fL (80.0-94.0); MEAN CORPUSCULAR HEMOGLOBIN 33.3 pg (27.0-31.0); MEAN CORPUSCULAR HGB CONC 33.8 g/dL (33.0-37.0); MONO # 0.6 K/uL (0.0-0.8); NRBC % 0.1 % (0.0-2.0); RED CELL DISTRIBUTION WIDTH 20.9 % (11.5-14.5); WHITE BLOOD COUNT 4.7 K/uL (4.8-10.8)
[2017-02-23 08:19] LABS: POTASSIUM 4.2 mmol/L (3.6-5.2)
[2017-02-23 08:21] LABS: ALB/GLOB RATIO 0.6 (1.0-2.1); BILIRUBIN,TOTAL 2.3 mg/dL (0.2-1.3); MAGNESIUM 1.7 mg/dL (1.6-2.3); PHOSPHOROUS 4.4 mg/dL (2.5-4.5); TOTAL PROTEIN 6.2 g/dL (6.3-8.3)
[2017-02-23 08:22] LABS: CREATININE, RANDOM URINE 88.7 mg/dL
--- NOTE | 2017-02-23 09:40 | CP.PCM.PN ---
Subjective - Date & Time of Evaluation Date of Evaluation: 02/23/17 Time of Evaluation: 09:25 - Subjective Subjective: F/U ascites Testicular swelling-less. Abdom distention- less after tap. Reports insomnia. Denies RB, melena, abdom pain, fever, chills, SZ, LOC, cough , hemoptysis Objective - Vital Signs/Intake and Output Vital Signs (last 24 hours): Temp Pulse Resp BP Pulse Ox 98.2 F 79 20 154/61 H 98 02/23/17 07:01 02/23/17 07:01 02/23/17 07:01 02/23/17 07:01 02/23/17 07:01 Intake and Output: 02/23/17 02/23/17 06:59 18:59 Intake Total 460 Output Total 200 Balance 260 - Labs Labs: 02/23/17 07:57 02/23/17 07:57 PT 17.9 SECONDS (9.7-12.2) H 02/21/17 07:12 INR 1.6 02/21/17 07:12 APTT 47 SECONDS (21-34) H 02/19/17 22:00 - Constitutional Appears: Non-toxic - Neck Exam Neck Exam: absent: Tenderness - Respiratory Exam Respiratory Exam: Clear to Ausculation Bilateral - Cardiovascular Exam Cardiovascular Exam: RRR - GI/Abdominal Exam GI & Abdominal Exam: Distended, Soft, Normal Bowel Sounds. absent: Tenderness - Exam Additional comments: testicular edema - Extremities Exam Extremities Exam: Pedal Edema - Neurological Exam Neurological Exam: Alert, Awake, Oriented x3 Assessment and Plan (1) Acute renal failure Assessment & Plan: COnsider HRS. Collecting urine. Status: Acute (2) Anasarca Status: Acute (3) Anemia Status: Acute (4) Ascites Assessment & Plan: Cirrrhosis. Complicated by renal failure.. - Need to hold diuretics- for now- due to renal. Testicular edema. Tap results noted. Status: Acute (5) Coagulopathy Status: Acute (6) Glomerulonephritis Status: Acute (7) HTN (hypertension) Status: Acute (8) Hepatitis C antibody positive in blood Assessment & Plan: Check labs. Consider outpt treatment- there may be compliance issues with meds. Status: Acute (9) Liver cirrhosis Status: Acute
--- NOTE | 2017-02-23 13:42 | CP.PCM.PN ---
<Chon Cole - Last Filed: 02/23/17 13:39> Subjective - Date & Time of Evaluation Date of Evaluation: 02/23/17 Time of Evaluation: 13:39 - Subjective Subjective: PGY1 Note for Dr. Cohen HPI: Patient seen and examined at bedside. Doing well. Does not want more intervention. States he is hungry. Thinks that his belly has decreased in size. Still concerned about the size of his testicle. Told about brain tumor and does not want neurosurgery to be consulted be cause he does not want anything done about it. We told him that he would benefit from further information about his condition but he did not want to talk to anyone about it. We told him the tumor could grow and cause many problems including . He still did not want to talk about it or have any intervention done. Patient denies any chest pain, SOB , F, N/V/D/chills but is still having a little cough while we are in the room although he denies. Objective - Vital Signs/Intake and Output Vital Signs (last 24 hours): Temp Pulse Resp BP Pulse Ox 98.2 F 79 20 154/61 H 98 02/23/17 07:01 02/23/17 07:01 02/23/17 07:01 02/23/17 07:01 02/23/17 07:01 Intake and Output: 02/23/17 02/23/17 06:59 18:59 Intake Total 460 Output Total 200 Balance 260 - Medications Medications: Current Medications Furosemide (Lasix) 40 mg IVP Q8 KARL Spironolactone (Aldactone) 25 mg PO DAILY KARL - Labs Labs: 02/23/17 07:57 02/23/17 07:57 PT 17.9 SECONDS (9.7-12.2) H 02/21/17 07:12 INR 1.6 02/21/17 07:12 APTT 47 SECONDS (21-34) H 02/19/17 22:00 - Constitutional Appears: Well, Non-toxic, No Acute Distress - Head Exam Head Exam: ATRAUMATIC, NORMAL INSPECTION, NORMOCEPHALIC - Eye Exam Eye Exam: EOMI Pupil Exam: NORMAL ACCOMODATION - ENT Exam ENT Exam: Mucous Membranes Moist - Respiratory Exam Respiratory Exam: Rales, NORMAL BREATHING PATTERN - Cardiovascular Exam Cardiovascular Exam: REGULAR RHYTHM. absent: Gallop, Rubs, Murmur - GI/Abdominal Exam GI & Abdominal Exam: Distended, Soft. absent: Tenderness, Normal Bowel Sounds - Extremities Exam Extremities Exam: Joint Swelling, Pedal Edema - Neurological Exam Neurological Exam: Alert, Awake, Oriented x3 - Psychiatric Exam Psychiatric exam: Normal Affect, Normal Mood - Skin Skin Exam: Dry, Intact, Normal Color, Warm Assessment and Plan - Assessment and Plan (Free Text) Assessment: HCV * ID (Mangia) * Possible outpt therapy upon EtOH cessation * GI (Tepler) * AFP, Hep C viral load and genotype. Refer for transplant evaluation Meningioma * CT Head - Meningioma w/ surrounding edema * told about the risks and benefits thoroughly concerning a neurosurgery consult but did not want to speak with them or have any further intervention regarding this matter Possible Syphilis * +RPR * F/U FTA-ABS Cough * CT chest - R. upper lobe pulm nodules, b/l pleural effusions Ascites * GI (Tepler) * Check B12 and Folate levels * Schedule paracentesis with IR, send fluid for cell count, albumin, protein, cytology, culture * Hold Diuretics * Liver enzymes: * AST/ALT: 60/51, Alkaline phosphatase: 168 * Albumin: 2.0 * Albumin 25gm IV 2x * Compression stockings * Abdominal US * Splenomegaly, pleural effsuin, ascites, hepatomegaly, cirrhosis, sludge, wall thickening * Echocardiogram * EF 60-65 * CXR - small right pleural effusion * CT: cirrhosis, ascites, calcified hepatic and splenic glaucomas, splenomegaly * Testicular US * Scrotal edema, enlarged L. epididymis, Increased vascularity epididymitis * Daily weight checks * CXR PA/LAT * R. basilar infiltrate, small R. 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 * Needs renal bx but is refusing * F/U rheumatoid factor, cryoglobulin assays, SPEP, serum free light chains, 24 hr Ur protein electrophoresis Anemia * Needs outpatient colonoscopy Pancytopenia * Heme ([place]) * Hold GI PPX for risk of decreasing platelets * No heparin PPX * Ambulate/OOB * Compression stockings <Génesis Cohen V - Last Filed: 02/23/17 17:41> Objective - Vital Signs/Intake and Output Vital Signs (last 24 hours): Temp Pulse Resp BP Pulse Ox 97.8 F 73 20 157/67 H 100 02/23/17 16:15 02/23/17 16:15 02/23/17 16:15 02/23/17 16:15 02/23/17 16:15 Intake and Output: 02/23/17 02/23/17 06:59 18:59 Intake Total 460 Output Total 200 Balance 260 - Medications Medications: Current Medications Furosemide (Lasix) 40 mg IVP Q8 [facility] Last Admin: 02/23/17 13:41 Dose: 40 mg Spironolactone (Aldactone) 25 mg PO DAILY [facility] Last Admin: 02/23/17 13:41 Dose: 25 mg - Labs Labs: 02/23/17 07:57 02/23/17 07:57 PT 17.9 SECONDS (9.7-12.2) H 02/21/17 07:12 INR 1.6 02/21/17 07:12 APTT 47 SECONDS (21-34) H 02/19/17 22:00 Attending/Attestation - Attestation I have personally seen and examined this patient.: Yes I have fully participated in the care of the patient.: Yes I have reviewed all pertinent clinical information, including history, physical exam and plan: Yes Notes (Text): Patient seen, and examined with day-time resident during rounds this morning. Patient seen this morning. Explained to the patient regarding his CT head result ; including the meningoma and recommended for neurosurgical evaluation. Patient refuses neurosurgical evaluation. He reports "he will live with it" Patient did not initially believe he had a meningoma initially diagnosed at [facility] last week. Patient seen sitting upright, edema improved in the lower extremities and abdomen. No new rashes. Discussed with nephrology, believes the kidney is related to nephritis less hepatorenal syndrome and started patient on diuretic. Patient undergoing 24 hour urine collection. Will follow-up with nephrology and GI regarding when patient is stable for discharge. Assessment/Plan 1) Anasarca * [facility] Paperwork in front of the chart * GI (Dr. Lee)-->help appreciated * Nephrology (Dr. Bettencourt)-->help appreciated * Monitor daily weights and intake and out * Patient is a poor historian but confirms he has a "liver problem" and "hepatitis". Patient denies heart problems and unclear regarding kidney problems * Patient also received 2 PRBC total; given hgb; 7's will need to uncover baseline Hgb/Hct values * Compression stockings * Abdominal US-->mild hepatomegaly, echogenic liver, nodular hepatic contour, gallbladder sludge, gallbladder wall thickening/pericholecytstic edema, no gallstones, negative sonographic Gibson's sign, splenomeglay, small left pleural effusion, ascites * Echocardiogram pending official report; prior echo from [facility] obtained systolic function intact * CXR - small right pleural effusion * CT scan (02/20/17): hepatitc cirrhosis. entensive ascites. Old calcified hepatic and splenic granulomas, moarked splenomegaly, small left pleural effusion: cirrhosis, ascites, calcified hepatic and splenic glaucomas, splenomegaly * Testicular US (02/20/17): severe bilateral scrotal edema; enlarged left epididmyitis with evidence of increased vascularity-->will consult urology for further recommendations * Daily weight checks * CXR PA/LAT (02/20/17): right basilar infiltrate * MELD Score = 24 --> 19.6% estimated 3 month mortality risk-->per GI, recommend transplant eval when stable 2) Pancytopenia * Heme-onc consult (Dr. Sarita Yanez) on consult * received one unit of PRBC on admission and ordered for additional during the day * Platelets low below 50K; no bleeding episodes no acute rashes; patient advised not to scratch * Hx of hepatitis C and hx of cirrhosis * Under 3) Renal insufficiency; * nephrology consult (Dr. Bettencourt) help appreciated * Cr/BUN: 2.7/61; prior Cr: 3.2 upon discharge at [facility] * Diuertic started * monitor intake and output 4) Hepatitis C+ * Abdominal US-->mild hepatomegaly, echogenic liver, nodular hepatic contour, gallbladder sludge, gallbladder wall thickening/pericholecytstic edema, no gallstones, negative sonographic Gibson's sign, splenomeglay, small left pleural effusion, ascites * ID defers to GI regarding Hepatitis C 5) Cirrhosis * Abdominal US-->mild hepatomegaly, echogenic liver, nodular hepatic contour, gallbladder sludge, gallbladder wall thickening/pericholecytstic edema, no gallstones, negative sonographic Gibson's sign, splenomeglay, small left pleural effusion, ascites 6) Thrombocytopenia * Hold GI PPX for risk of decreasing platelets * No heparin dvt secondary to thrombocytopenia * No observed rashes, no abnormal bleeding note; patient counselled to not scratch 7) Cough * CT Chest (02/22/17): Hepatic cirrhosis with splenomegaly and generalized ascites. Small bilateral pleural effusion and lower lobe compressive atelectasis., left greater than right. Several small right upper lobe pulmonary nodules, nonspecific. Anasarca. 8) Hx of Meningoma * Per review of [facility], recommended for neurosurgical intervention; will need to monitor mental status in light of this finding in addition to cirrhotic liver; Patient did not believe had this finding. * Head CT (02/22/17): 2.4 cm lesion in the right inferior frontal region which appears to arise from the sphenoid ridge consistent with an extra-acial meningoma. Lesion is surrounded by vasogenic white matter edema with inferior frontal love extending posteriorly along the external capsule left basal ganglia. mild mass effect as described * Patient refuses neurosurgical consult. He was advised given his CT head results and reports he wants to "live with it"
--- NOTE | 2017-02-23 17:25 | CP.PCM.PN ---
Subjective - Date & Time of Evaluation Date of Evaluation: 02/23/17 Time of Evaluation: 15:30 - Subjective Subjective: Patient denies any difficulty breathing; ambulating; reports soft stool this morning; Objective - Vital Signs/Intake and Output Vital Signs (last 24 hours): Temp Pulse Resp BP Pulse Ox 97.8 F 73 20 157/67 H 100 02/23/17 16:15 02/23/17 16:15 02/23/17 16:15 02/23/17 16:15 02/23/17 16:15 Intake and Output: 02/23/17 02/23/17 06:59 18:59 Intake Total 460 560 Output Total 200 Balance 260 560 - Medications Medications: Current Medications Furosemide (Lasix) 40 mg IVP Q8 [facility] Last Admin: 02/23/17 13:41 Dose: 40 mg Spironolactone (Aldactone) 25 mg PO DAILY [facility] Last Admin: 02/23/17 13:41 Dose: 25 mg - Labs Labs: 02/23/17 07:57 02/23/17 07:57 PT 17.9 SECONDS (9.7-12.2) H 02/21/17 07:12 INR 1.6 02/21/17 07:12 APTT 47 SECONDS (21-34) H 02/19/17 22:00 - Constitutional Appears: Non-toxic, No Acute Distress - Head Exam Head Exam: NORMAL INSPECTION - Eye Exam Eye Exam: Normal appearance - ENT Exam ENT Exam: Mucous Membranes Moist - Respiratory Exam Respiratory Exam: Wheezes. absent: Rales - Cardiovascular Exam Cardiovascular Exam: REGULAR RHYTHM, +S1, +S2 - GI/Abdominal Exam GI & Abdominal Exam: Soft. absent: Distended, Tenderness - Extremities Exam Additional comments: anasarca; leg edema extending to low back/abd wall; - Neurological Exam Neurological Exam: Alert, Awake - Psychiatric Exam Psychiatric exam: Normal Affect, Normal Mood - Skin Skin Exam: Normal Color, Warm. 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; rheumatoid factor mildly elevated (surrogate for cryoglobulinemia); ideally needs biopsy to confirm but patient still hesitant; -f/u workup for monoclonal immunoglobulin deposition (24 hr urine electrophoresis, SPEP, serum free light chains) -if patient still refusing biopsy, should still treat hep C as outpatient Status: Acute (3) Hepatitis C antibody positive in blood Assessment & Plan: Elevated viral load as well; needs outpatient treatment; may help preserve renal function; Status: Acute (4) HTN (hypertension) Assessment & Plan: Uncontrolled; in setting of nephritic process; will hold off on PEPE-I/ARB as proteinuria is relatively mild; -starting diuretics with IV lasix 40 mg q8h (will switch to torsemide 10 mg bid tomorrow), aldactone 25 mg PO daily; Status: Acute (5) Anemia Assessment & Plan: Hgb relatively stable; checking iron studies; Status: Acute (6) Ascites Assessment & Plan: Still significant ascites; anasarca; starting diuretics as above; Status: Acute
--- NOTE | 2017-02-23 18:23 | CP.PCM.PN ---
Subjective - Date & Time of Evaluation Date of Evaluation: 02/23/17 Time of Evaluation: 17:00 - Subjective Subjective: No complaints Objective - Vital Signs/Intake and Output Vital Signs (last 24 hours): Temp Pulse Resp BP Pulse Ox 97.8 F 73 20 157/67 H 100 02/23/17 16:15 02/23/17 16:15 02/23/17 16:15 02/23/17 16:15 02/23/17 16:15 Intake and Output: 02/23/17 02/23/17 06:59 18:59 Intake Total 460 560 Output Total 200 Balance 260 560 - Medications Medications: Current Medications Furosemide (Lasix) 40 mg IVP Q8 [facility] Last Admin: 02/23/17 13:41 Dose: 40 mg Spironolactone (Aldactone) 25 mg PO DAILY [facility] Last Admin: 02/23/17 13:41 Dose: 25 mg - Labs Labs: 02/23/17 07:57 02/23/17 07:57 PT 17.9 SECONDS (9.7-12.2) H 02/21/17 07:12 INR 1.6 02/21/17 07:12 APTT 47 SECONDS (21-34) H 02/19/17 22:00 - Head Exam Head Exam: ATRAUMATIC - Eye Exam Eye Exam: Normal appearance - ENT Exam ENT Exam: Mucous Membranes Dry - Respiratory Exam Respiratory Exam: NORMAL BREATHING PATTERN - Cardiovascular Exam Cardiovascular Exam: +S1, +S2 - GI/Abdominal Exam GI & Abdominal Exam: Normal Bowel Sounds Assessment and Plan (1) Thrombocytopenia Assessment & Plan: liver disease, hep c, splenic sequestration Status: Acute (2) Anemia Assessment & Plan: f/u ferritin normal b12/folate Status: Acute (3) Coagulopathy Assessment & Plan: liver disease Status: Acute (4) Splenomegaly Assessment & Plan: likely secondary to pHTN Status: Acute
[2017-02-24 01:20] LABS: TOTAL PROTEIN, SERUM 6.1 g/dL (6.1-8.1)
[2017-02-24 11:29] LABS: BASO % 0.7 % (0.0-2.0); EOS # 0.3 K/uL (0.0-0.7); EOS % 5.7 % (0.0-4.0); HEMATOCRIT 23.1 % (35.0-51.0); LYMPH % 22.1 % (20.0-40.0); MEAN CELL VOLUME 99.5 fL (80.0-94.0); MEAN CORPUSCULAR HEMOGLOBIN 33.9 pg (27.0-31.0); MEAN CORPUSCULAR HGB CONC 34.1 g/dL (33.0-37.0); MEAN PLATELET VOLUME 9.4 fL (7.2-11.7); MONO # 0.6 K/uL (0.0-0.8); MONO % 12.7 % (0.0-10.0); NRBC % 0.1 % (0.0-2.0); RED CELL DISTRIBUTION WIDTH 20.6 % (11.5-14.5); WHITE BLOOD COUNT 4.5 K/uL (4.8-10.8)
[2017-02-24 11:45] LABS: IRON 76 ug/dL (49-181)
--- NOTE | 2017-02-24 11:47 | CP.PCM.PN ---
Objective - Vital Signs/Intake and Output Vital Signs (last 24 hours): Temp Pulse Resp BP Pulse Ox 98 F 81 18 148/64 99 02/24/17 11:39 02/24/17 11:39 02/24/17 11:39 02/24/17 11:39 02/24/17 11:39 Intake and Output: 02/24/17 02/24/17 06:59 18:59 Intake Total 300 Output Total 500 Balance -200 - Medications Medications: Current Medications Spironolactone (Aldactone) 25 mg PO DAILY [facility] Last Admin: 02/24/17 09:16 Dose: 25 mg Torsemide (Demadex) 10 mg PO BID KAR[facility] - Labs Labs: 02/24/17 11:17 02/23/17 07:57 PT 17.9 SECONDS (9.7-12.2) H 02/21/17 07:12 INR 1.6 02/21/17 07:12 APTT 47 SECONDS (21-34) H 02/19/17 22:00 Assessment and Plan (1) Acute renal failure Status: Acute (2) Glomerulonephritis Status: Acute (3) Hepatitis C antibody positive in blood Status: Acute (4) HTN (hypertension) Status: Acute (5) Anemia Status: Acute (6) Ascites Status: Acute
[2017-02-24 11:50] LABS: POTASSIUM 4.2 mmol/L (3.6-5.2)
[2017-02-24 11:52] LABS: ALB/GLOB RATIO 0.5 (1.0-2.1); BILIRUBIN,TOTAL 3.5 mg/dL (0.2-1.3); TOTAL PROTEIN 6.4 g/dL (6.3-8.3)
[2017-02-24 11:53] LABS: CALCIUM 7.9 mg/dl (8.6-10.4); MAGNESIUM 1.6 mg/dL (1.6-2.3)
--- NOTE | 2017-02-24 12:33 | CP.PCM.DIS ---
<Chon Cole - Last Filed: 02/24/17 14:55> Provider - Provider Date of Admission: 02/19/17 21:54 Attending physician: Génesis Cohen DO Primary care physician: Clinic Consults: Nephro: [place] GI: [place] Heme: [place] ID: [email or web address] Time Spent in preparation of Discharge (in minutes): 45 Hospital Course - Lab Results Lab Results: Micro Results 02/21/17 12:14 Ascitic Fluid Gram Stain - Final 02/21/17 12:14 Ascitic Fluid Body Fluid Culture - Preliminary NO GROWTH AFTER 2 DAYS Most Recent Lab Values WBC 4.5 K/uL (4.8-10.8) L 02/24/17 11:17 RBC 2.32 Mil/uL (4.40-5.90) L 02/24/17 11:17 Hgb 7.9 g/dL (12.0-18.0) L 02/24/17 11:17 Hct 23.1 % (35.0-51.0) L 02/24/17 11:17 MCV 99.5 fL (80.0-94.0) H 02/24/17 11:17 MCH 33.9 pg (27.0-31.0) H 02/24/17 11:17 MCHC 34.1 g/dL (33.0-37.0) 02/24/17 11:17 RDW 20.6 % (11.5-14.5) H 02/24/17 11:17 Plt Count 38 K/uL (130-400) L 02/24/17 11:17 MPV 9.4 fL (7.2-11.7) 02/24/17 11:17 Neut % (Auto) 58.8 % (50.0-75.0) 02/24/17 11:17 Lymph % (Auto) 22.1 % (20.0-40.0) 02/24/17 11:17 [place] % (Auto) 12.7 % (0.0-10.0) H 02/24/17 11:17 Eos % (Auto) 5.7 % (0.0-4.0) H 02/24/17 11:17 Baso % (Auto) 0.7 % (0.0-2.0) 02/24/17 11:17 Neut # 2.6 K/uL (1.8-7.0) 02/24/17 11:17 Lymph # 1.0 K/uL (1.0-4.3) 02/24/17 11:17 [place] # 0.6 K/uL (0.0-0.8) 02/24/17 11:17 Eos # 0.3 K/uL (0.0-0.7) 02/24/17 11:17 Baso # 0.0 K/uL (0.0-0.2) 02/24/17 11:17 Differential Comment 02/19/17 20:48 PT 17.9 SECONDS (9.7-12.2) H 02/21/17 07:12 INR 1.6 02/21/17 07:12 APTT 47 SECONDS (21-34) H 02/19/17 22:00 Sodium 142 mmol/L (132-148) 02/24/17 11:17 Potassium 4.2 mmol/L (3.6-5.2) 02/24/17 11:17 Chloride 115 mmol/L (98-107) H 02/24/17 11:17 Carbon Dioxide 18 mmol/L (22-30) L 02/24/17 11:17 Anion Gap 13 (10-20) 02/24/17 11:17 BUN 56 mg/dL (9-20) H 02/24/17 11:17 Creatinine 2.8 MG/DL (0.8-1.5) H 02/24/17 11:17 Est GFR ( Amer) 29 02/24/17 11:17 Est GFR (Non-Af Amer) 24 02/24/17 11:17 Random Glucose 123 mg/dL (75-110) H 02/24/17 11:17 Lactic Acid 1.5 mmol/L (0.7-2.1) 02/19/17 22:00 Calcium 7.9 mg/dl (8.6-10.4) L 02/24/17 11:17 Phosphorus 5.0 mg/dL (2.5-4.5) H 02/24/17 11:17 Magnesium 1.6 mg/dL (1.6-2.3) 02/24/17 11:17 Iron 76 ug/dL (49-181) 02/24/17 11:17 TIBC 132 ug/dL (250-450) L 02/24/17 11:17 % Saturation 58 (20-55) H 02/24/17 11:17 Ferritin 331.0 ng/mL 02/24/17 11:17 Total Bilirubin 3.5 mg/dL (0.2-1.3) H 02/24/17 11:17 AST 61 U/L (17-59) H 02/24/17 11:17 ALT 46 U/L (21-72) 02/24/17 11:17 Alkaline Phosphatase 71 U/L (38-126) 02/24/17 11:17 Ammonia 17 umol/L (9-33) 02/19/17 20:48 Total Protein 6.4 g/dL (6.3-8.3) 02/24/17 11:17 Total Protein (PEP) 6.1 g/dL (6.1-8.1) 02/23/17 07:57 Albumin 2.2 g/dL (3.5-5.0) L 02/24/17 11:17 Globulin 4.2 gm/dL (2.2-3.9) H 02/24/17 11:17 Albumin/Globulin Ratio 0.5 (1.0-2.1) L 02/24/17 11:17 Lipase 1112 U/L (23-300) H 02/19/17 20:48 Alpha Fetoprotein 6.4 ng/mL (0.0-7.5) 02/21/17 07:12 Vitamin B12 834 pg/mL (239-931) 02/21/17 07:12 Folate 12.1 ng/mL 02/21/17 07:12 Urine Color Dominique (YELLOW) 02/21/17 11:08 Urine Clarity Hazy (Clear) 02/21/17 11:08 Urine pH 6.0 (5.0-8.0) 02/21/17 11:08 Ur Specific [place] 1.012 (1.003-1.030) 02/21/17 11:08 Urine Protein 1+ mg/dL (NEGATIVE) H 02/21/17 11:08 Urine Glucose (UA) Normal mg/dL (Normal) 02/21/17 11:08 Urine Ketones Negative mg/dL (NEGATIVE) 02/21/17 11:08 Urine Blood 2+ (NEGATIVE) H 02/21/17 11:08 Urine Nitrate Negative (NEGATIVE) 02/21/17 11:08 Urine Bilirubin Negative (NEGATIVE) 02/21/17 11:08 Urine Urobilinogen Normal mg/dL (0.2-1.0) 02/21/17 11:08 Ur Leukocyte Esterase 1+ Nyasia/uL (Negative) H 02/21/17 11:08 Urine WBC (Auto) 93 /hpf (0-5) H 02/21/17 11:08 Urine RBC (Auto) 391 /hpf (0-3) H 02/21/17 11:08 Ur Squamous Epith Cells 3 /hpf (0-5) 02/21/17 11:08 Urine Bacteria Occ (<OCC) H 02/21/17 11:08 Ur Random Creatinine 88.7 mg/dL 02/23/17 07:52 U Random Total Protein 66.0 mg/dL (0.0-12.0) H 02/21/17 11:13 Ur Random Sodium 16 mmol/L 02/23/17 07:52 Fluid Source Peritoneal/ascites 02/21/17 14:15 Fluid Appearance Sl cloudy (CLEAR) 02/21/17 14:15 Fluid WBC 106.0 /mm3 (0.0-300.0) 02/21/17 14:15 Fluid RBC 467.0 /mm3 (0.0-0.0) H 02/21/17 14:15 Fluid Tot Cell Count TEST NOT PERFORMED 02/21/17 14:15 Fluid Neutrophils 57.0 % (0-0) H 02/21/17 14:15 Fluid Lymphocytes 41.0 % (0-0) H 02/21/17 14:15 Fld Monocyte/Macrophag 2 % (0-0) H 02/21/17 14:15 Fluid Albumin 0.5 g/dL 02/21/17 14:15 Fluid Comment 02/21/17 14:15 Peritoneal Tot Protein <3.0 g/dL 02/21/17 14:15 Stool Occult Blood Negative (NEGATIVE) 02/22/17 07:16 Urine Opiates Screen Negative (NEGATIVE) 02/19/17 23:22 Urine Methadone Screen Negative (NEGATIVE) 02/19/17 23:22 Ur Barbiturates Screen Negative (NEGATIVE) 02/19/17 23:22 Ur Phencyclidine Scrn Negative (NEGATIVE) 02/19/17 23:22 Ur Amphetamines Screen Negative (NEGATIVE) 02/19/17 23:22 U Benzodiazepines Scrn Negative (NEGATIVE) 02/19/17 23:22 U Oth Cocaine Metabols Negative (NEGATIVE) 02/19/17 23:22 U Cannabinoids Screen Negative (NEGATIVE) 02/19/17 23:22 Serum Cryoglobulins Negative (NEGATIVE) 02/21/17 11:23 Rheumatoid Factor IgG <5 U (<=6) 02/21/17 11:23 Rheumatoid Factor IgA <5 U (<=6) 02/21/17 11:23 Rheumatoid Factor IgM 8 U (<=6) H 02/21/17 11:23 ABIGAIL 6 Profile Negative (NEGATIVE) 02/21/17 11:23 Complement C3 < 40.0 mg/dL (88.0-165.0) L 02/21/17 11:23 Complement C4 10.1 mg/dL (14.0-44.0) L 02/21/17 11:23 RPR Titer 1:4 (NONREACTIVE) H 02/22/17 08:30 RPR Reactive (NONREACTIVE) H 02/22/17 08:30 Hepatitis A IgM Ab Negative (NEGATIVE) 02/20/17 06:42 Hep Bs Antigen Negative (NEGATIVE) 02/20/17 06:42 Hep B Core IgM Ab Negative (NEGATIVE) 02/20/17 06:42 Hepatitis C Antibody Reactive (NEGATIVE) 02/20/17 06:42 Hepatitis C RNA 45397 IU/mL (<15) H 02/21/17 07:12 HCV RNA Quant (PCR) 4.78 Log IU/mL (<1.18) H 02/21/17 07:12 HIV 1&2 Antibody Screen Negative (NEGATIVE) 02/22/17 08:30 Blood Type O POSITIVE 02/19/17 22:03 Antibody Screen Negative 02/19/17 22:03 - Hospital Course Hospital Course: On admission: Patient is a 56 year old male with no past medical history (as per patient) who presents to the ED with complaints of bilateral leg swelling, distention of the abdomen and b/l testicular swelling that started 4 days ago. Patient reports that he has had similar episodes in the past but he is unsure of the onsets of his symptoms. Patient reports he was admitted to [facility] last week for the same symptoms, where he had a paracentesis, draining about 6 bottles of fluid. Patient admits to abdominal pain, intermittent cough and dyspnea on exertion but denies fever, chills, nausea, vomiting, b/l leg pain, SOB, orthopnea. Patient is a poor historian. Patient presented to the ED for swelling of the abdomen, lower extremities, and genitalia for a few days. On admission a CT was done and found to have liver cirrhoses. Dr. Lee was consulted for the anasarca and liver pathology. He was also found to be anemic and given [address] Drew was also consulted because of thrombocytopenia and recommended transfusion of one unit of platelets. Due to the large amount of fluid retention Dr Carroll was consulted for paracentesis. A total of 5.5L was removed with no issues during the procedure and the platelets were given. Due to the patient declining kidney function, Dr. Mao was consulted for suspected acute renal failure. While being examined, the patient stated he still had some chest congestion. A CT of the chest was done and was negative. A CT of the Brain was ordered and revealed a meningioma. We discussed the results with the patient and he became frustrated about the further need for a work up. He rejected any neuro/ neurosurgery intervention. Dr. Geronimo was consulted for the patients Hep C status andf recommended that GI follow up and he recieve treatment as a an outpatient for HCV. Patient had a +RPR but did not want to wait for the FTA- ABS. Patient is agitated and does not want any further intervention at this time. He will be discharged with instructions to folow up in the clinic for treatment. Patient was instructed to return if the fluid gets severe again. Given that the patient is homeless , he gave us the unmber of a friend to contact but to NOT REVEAL MEDICAL INFORMATION TO. ONLY TO TELL THE PATIENT IF HE NEEDS TO COME BACK TO THE HOSPITAL OR NOT. Jose Antonio Mariafreedom [phone] - Date & Time of H&P Date of H&P: 02/20/17 Time of H&P: 04:41 Discharge Exam - Head Exam Head Exam: ATRAUMATIC, NORMAL INSPECTION, NORMOCEPHALIC - Eye Exam Eye Exam: EOMI, Normal appearance Pupil Exam: NORMAL ACCOMODATION - ENT Exam ENT Exam: Mucous Membranes Moist - Respiratory Exam Additional comments: global crackles - Cardiovascular Exam Cardiovascular Exam: REGULAR RHYTHM. absent: Bradycardia, Tachycardia - GI/Abdominal Exam GI & Abdominal Exam: Distended, Normal Bowel Sounds, Soft. absent: Tenderness - Exam Exam: Scrotal Swelling - Neurological Exam Neurological exam: Alert, Oriented x3 - Psychiatric Exam Psychiatric exam: Normal Affect, Normal Mood - Skin Skin Exam: Dry, Intact, Normal Color, Warm Discharge Plan - Discharge Medications Prescriptions: Torsemide [Demadex] 10 mg PO BID #60 tab - Follow Up Plan Condition: STABLE Disposition: HOME/ ROUTINE Instructions: Torsemide (By mouth), Acute Kidney Injury (DC), Renal Failure Diet (DC), Myelodysplastic Syndromes (DC), Abdominal Paracentesis (DC), Ascites (DC), Anemia (DC) Additional Instructions: Patient is stable for discharge home per Dr. Cohen. Patient is to follow up with the [facility] to establish care. Patient is also to do the following: From a Nephro standpoint, patient is stable. He is in need of a renal biopsy but is refusing. He should follow up in our clinic or in Dr. Mao's office for the complete workup of his kidney failure From a GI standpoint, patient is stable. He should follow up in the clinic or with Dr. Lee in his office for treatment of his hepatitis C From a ID standpoint, patient is stable. He should follow up in the clinic for treatment of his hepatitis C and to follow up results of his Syphilis confirmatory test. Patient refuse to stay to find the result but has agreed to give us the phone number of his friend Jose Antonio Victoria per patients request at We advised the patient to see neurosurgery but he declined to speak with them and did not want any intervention regarding his Meningioma Patient being discharged for prescription for Toresemide 10mg by mouth twice a day Patient is to return to the ED if his symptoms reoccur or worsen, this was explained to the patient who understands and agrees. Referrals: [facility] [Outside] Varinder Mao MD [Staff Provider] - Wan Lee MD [Staff Provider] - Ray Yanez MD [Staff Provider] - Justice Geronimo MD [Staff Provider] - <Génesis Cohen V - Last Filed: 02/24/17 23:08> Provider - Provider Date of Admission: 02/19/17 21:54 Attending physician: Génesis Cohen, DO Hospital Course - Lab Results Lab Results: Micro Results 02/21/17 12:14 Ascitic Fluid Gram Stain - Final 02/21/17 12:14 Ascitic Fluid Body Fluid Culture - Preliminary NO GROWTH AFTER 3 DAYS Most Recent Lab Values WBC 4.5 K/uL (4.8-10.8) L 02/24/17 11:17 RBC 2.32 Mil/uL (4.40-5.90) L 02/24/17 11:17 Hgb 7.9 g/dL (12.0-18.0) L 02/24/17 11:17 Hct 23.1 % (35.0-51.0) L 02/24/17 11:17 MCV 99.5 fL (80.0-94.0) H 02/24/17 11:17 MCH 33.9 pg (27.0-31.0) H 02/24/17 11:17 MCHC 34.1 g/dL (33.0-37.0) 02/24/17 11:17 RDW 20.6 % (11.5-14.5) H 02/24/17 11:17 Plt Count 38 K/uL (130-400) L 02/24/17 11:17 MPV 9.4 fL (7.2-11.7) 02/24/17 11:17 Neut % (Auto) 58.8 % (50.0-75.0) 02/24/17 11:17 Lymph % (Auto) 22.1 % (20.0-40.0) 02/24/17 11:17 [place] % (Auto) 12.7 % (0.0-10.0) H 02/24/17 11:17 Eos % (Auto) 5.7 % (0.0-4.0) H 02/24/17 11:17 Baso % (Auto) 0.7 % (0.0-2.0) 02/24/17 11:17 Neut # 2.6 K/uL (1.8-7.0) 02/24/17 11:17 Lymph # 1.0 K/uL (1.0-4.3) 02/24/17 11:17 [place] # 0.6 K/uL (0.0-0.8) 02/24/17 11:17 Eos # 0.3 K/uL (0.0-0.7) 02/24/17 11:17 Baso # 0.0 K/uL (0.0-0.2) 02/24/17 11:17 Differential Comment 02/19/17 20:48 PT 17.9 SECONDS (9.7-12.2) H 02/21/17 07:12 INR 1.6 02/21/17 07:12 APTT 47 SECONDS (21-34) H 02/19/17 22:00 Sodium 142 mmol/L (132-148) 02/24/17 11:17 Potassium 4.2 mmol/L (3.6-5.2) 02/24/17 11:17 Chloride 115 mmol/L (98-107) H 02/24/17 11:17 Carbon Dioxide 18 mmol/L (22-30) L 02/24/17 11:17 Anion Gap 13 (10-20) 02/24/17 11:17 BUN 56 mg/dL (9-20) H 02/24/17 11:17 Creatinine 2.8 MG/DL (0.8-1.5) H 02/24/17 11:17 Est GFR ( Amer) 29 02/24/17 11:17 Est GFR (Non-Af Amer) 24 02/24/17 11:17 Random Glucose 123 mg/dL (75-110) H 02/24/17 11:17 Lactic Acid 1.5 mmol/L (0.7-2.1) 02/19/17 22:00 Calcium 7.9 mg/dl (8.6-10.4) L 02/24/17 11:17 Phosphorus 5.0 mg/dL (2.5-4.5) H 02/24/17 11:17 Magnesium 1.6 mg/dL (1.6-2.3) 02/24/17 11:17 Iron 76 ug/dL (49-181) 02/24/17 11:17 TIBC 132 ug/dL (250-450) L 02/24/17 11:17 % Saturation 58 (20-55) H 02/24/17 11:17 Ferritin 331.0 ng/mL 02/24/17 11:17 Total Bilirubin 3.5 mg/dL (0.2-1.3) H 02/24/17 11:17 AST 61 U/L (17-59) H 02/24/17 11:17 ALT 46 U/L (21-72) 02/24/17 11:17 Alkaline Phosphatase 71 U/L (38-126) 02/24/17 11:17 Ammonia 17 umol/L (9-33) 02/19/17 20:48 Total Protein 6.4 g/dL (6.3-8.3) 02/24/17 11:17 Total Protein (PEP) 6.1 g/dL (6.1-8.1) 02/23/17 07:57 Albumin 2.2 g/dL (3.5-5.0) L 02/24/17 11:17 Globulin 4.2 gm/dL (2.2-3.9) H 02/24/17 11:17 Albumin/Globulin Ratio 0.5 (1.0-2.1) L 02/24/17 11:17 Lipase 1112 U/L (23-300) H 02/19/17 20:48 Alpha Fetoprotein 6.4 ng/mL (0.0-7.5) 02/21/17 07:12 Vitamin B12 834 pg/mL (239-931) 02/21/17 07:12 Folate 12.1 ng/mL 02/21/17 07:12 Urine Color Dominique (YELLOW) 02/21/17 11:08 Urine Clarity Hazy (Clear) 02/21/17 11:08 Urine pH 6.0 (5.0-8.0) 02/21/17 11:08 Ur Specific [place] 1.012 (1.003-1.030) 02/21/17 11:08 Urine Protein 1+ mg/dL (NEGATIVE) H 02/21/17 11:08 Urine Glucose (UA) Normal mg/dL (Normal) 02/21/17 11:08 Urine Ketones Negative mg/dL (NEGATIVE) 02/21/17 11:08 Urine Blood 2+ (NEGATIVE) H 02/21/17 11:08 Urine Nitrate Negative (NEGATIVE) 02/21/17 11:08 Urine Bilirubin Negative (NEGATIVE) 02/21/17 11:08 Urine Urobilinogen Normal mg/dL (0.2-1.0) 02/21/17 11:08 Ur Leukocyte Esterase 1+ Nyasia/uL (Negative) H 02/21/17 11:08 Urine WBC (Auto) 93 /hpf (0-5) H 02/21/17 11:08 Urine RBC (Auto) 391 /hpf (0-3) H 02/21/17 11:08 Ur Squamous Epith Cells 3 /hpf (0-5) 02/21/17 11:08 Urine Bacteria Occ (<OCC) H 02/21/17 11:08 Ur Random Creatinine 88.7 mg/dL 02/23/17 07:52 U Random Total Protein 66.0 mg/dL (0.0-12.0) H 02/21/17 11:13 Ur Random Sodium 16 mmol/L 02/23/17 07:52 Fluid Source Peritoneal/ascites 02/21/17 14:15 Fluid Appearance Sl cloudy (CLEAR) 02/21/17 14:15 Fluid WBC 106.0 /mm3 (0.0-300.0) 02/21/17 14:15 Fluid RBC 467.0 /mm3 (0.0-0.0) H 02/21/17 14:15 Fluid Tot Cell Count TEST NOT PERFORMED 02/21/17 14:15 Fluid Neutrophils 57.0 % (0-0) H 02/21/17 14:15 Fluid Lymphocytes 41.0 % (0-0) H 02/21/17 14:15 Fld Monocyte/Macrophag 2 % (0-0) H 02/21/17 14:15 Fluid Albumin 0.5 g/dL 02/21/17 14:15 Fluid Comment 02/21/17 14:15 Peritoneal Tot Protein <3.0 g/dL 02/21/17 14:15 Stool Occult Blood Negative (NEGATIVE) 02/22/17 07:16 Urine Opiates Screen Negative (NEGATIVE) 02/19/17 23:22 Urine Methadone Screen Negative (NEGATIVE) 02/19/17 23:22 Ur Barbiturates Screen Negative (NEGATIVE) 02/19/17 23:22 Ur Phencyclidine Scrn Negative (NEGATIVE) 02/19/17 23:22 Ur Amphetamines Screen Negative (NEGATIVE) 02/19/17 23:22 U Benzodiazepines Scrn Negative (NEGATIVE) 02/19/17 23:22 U Oth Cocaine Metabols Negative (NEGATIVE) 02/19/17 23:22 U Cannabinoids Screen Negative (NEGATIVE) 02/19/17 23:22 Serum Cryoglobulins Negative (NEGATIVE) 02/21/17 11:23 Rheumatoid Factor IgG <5 U (<=6) 02/21/17 11:23 Rheumatoid Factor IgA <5 U (<=6) 02/21/17 11:23 Rheumatoid Factor IgM 8 U (<=6) H 02/21/17 11:23 ABIGAIL 6 Profile Negative (NEGATIVE) 02/21/17 11:23 Complement C3 < 40.0 mg/dL (88.0-165.0) L 02/21/17 11:23 Complement C4 10.1 mg/dL (14.0-44.0) L 02/21/17 11:23 RPR Titer 1:4 (NONREACTIVE) H 02/22/17 08:30 RPR Reactive (NONREACTIVE) H 02/22/17 08:30 T.pallidum Ab (FTA-ABS) Reactive (Nonreactive) H 02/22/17 08:30 Hepatitis A IgM Ab Negative (NEGATIVE) 02/20/17 06:42 Hep Bs Antigen Negative (NEGATIVE) 02/20/17 06:42 Hep B Core IgM Ab Negative (NEGATIVE) 02/20/17 06:42 Hepatitis C Antibody Reactive (NEGATIVE) 02/20/17 06:42 Hepatitis C RNA 65692 IU/mL (<15) H 02/21/17 07:12 HCV RNA Quant (PCR) 4.78 Log IU/mL (<1.18) H 02/21/17 07:12 HIV 1&2 Antibody Screen Negative (NEGATIVE) 02/22/17 08:30 Blood Type O POSITIVE 02/19/17 22:03 Antibody Screen Negative 02/19/17 22:03 Attending/Attestation - Attestation I have personally seen and examined this patient.: Yes I have fully participated in the care of the patient.: Yes I have reviewed all pertinent clinical information, including history, physical exam and plan: Yes Notes (Text): Patient seen, examined this morning. Patient offered neurosurgical evaluation but continues to refuse it. Patient undergoing 24 hour urine collection by nephrology to finish at 3PM today. Per nephrology, patient can follow-up when test is done. Patient gave us his friend's number to followup regarding FTA-Ab because of positive RPR+. does not want his medical information to be shared with friend. Later in evening FTA-AB came back positive, infectious disease informed, ordered for first dose of Pencillin IM, and will need 1x/ week X2 more doses. Discharge held because social work had not made placement recommendations to the patient. Patient to be discharged tomorrow. Assessment/Plan 1) Anasarca * [facility] Paperwork in front of the chart * GI (Dr. Lee)-->help appreciated * Nephrology (Dr. Bettencourt)-->help appreciated * Monitor daily weights and intake and out * Patient is a poor historian but confirms he has a "liver problem" and "hepatitis". Patient denies heart problems and unclear regarding kidney problems * Patient also received 2 PRBC total; given hgb; 7's will need to uncover baseline Hgb/Hct values * Compression stockings * Abdominal US-->mild hepatomegaly, echogenic liver, nodular hepatic contour, gallbladder sludge, gallbladder wall thickening/pericholecytstic edema, no gallstones, negative sonographic Gibson's sign, splenomeglay, small left pleural effusion, ascites * Echocardiogram pending official report; prior echo from [facility] obtained systolic function intact * CXR - small right pleural effusion * CT scan (02/20/17): hepatitc cirrhosis. entensive ascites. Old calcified hepatic and splenic granulomas, moarked splenomegaly, small left pleural effusion: cirrhosis, ascites, calcified hepatic and splenic glaucomas, splenomegaly * Testicular US (02/20/17): severe bilateral scrotal edema; enlarged left epididmyitis with evidence of increased vascularity-->will consult urology for further recommendations * Daily weight checks * CXR PA/LAT (02/20/17): right basilar infiltrate * MELD Score = 24 --> 19.6% estimated 3 month mortality risk-->per GI, recommend transplant eval when stable 2) Pancytopenia * Heme-onc consult (Dr. Sarita Yanez) on consult * received one unit of PRBC on admission and ordered for additional during the day * Platelets low below 50K; no bleeding episodes no acute rashes; patient advised not to scratch * Hx of hepatitis C and hx of cirrhosis * Under 3) Renal insufficiency; * nephrology consult (Dr. Bettencourt) help appreciated * Cr/BUN: 2.7/61; prior Cr: 3.2 upon discharge at [facility] * Diuertic started * monitor intake and output 4) Hepatitis C+ * Abdominal US-->mild hepatomegaly, echogenic liver, nodular hepatic contour, gallbladder sludge, gallbladder wall thickening/pericholecytstic edema, no gallstones, negative sonographic Gibson's sign, splenomeglay, small left pleural effusion, ascites * ID defers to GI regarding Hepatitis C 5) Cirrhosis * Abdominal US-->mild hepatomegaly, echogenic liver, nodular hepatic contour, gallbladder sludge, gallbladder wall thickening/pericholecytstic edema, no gallstones, negative sonographic Gibson's sign, splenomeglay, small left pleural effusion, ascites 6) Thrombocytopenia * Hold GI PPX for risk of decreasing platelets * No heparin dvt secondary to thrombocytopenia * No observed rashes, no abnormal bleeding note; patient counselled to not scratch 7) Cough * CT Chest (02/22/17): Hepatic cirrhosis with splenomegaly and generalized ascites. Small bilateral pleural effusion and lower lobe compressive atelectasis., left greater than right. Several small right upper lobe pulmonary nodules, nonspecific. Anasarca. 8) Hx of Meningoma * Per review of [facility], recommended for neurosurgical intervention; will need to monitor mental status in light of this finding in addition to cirrhotic liver; Patient did not believe had this finding. * Head CT (02/22/17): 2.4 cm lesion in the right inferior frontal region which appears to arise from the sphenoid ridge consistent with an extra-acial meningoma. Lesion is surrounded by vasogenic white matter edema with inferior frontal love extending posteriorly along the external capsule left basal ganglia. mild mass effect as described * Patient refuses neurosurgical consult. He was advised given his CT head results and reports he wants to "live with it" 9) Syphilius * Infectious Disease (Dr. Geronimo) on board help appreciated * 1:4 titer * T. Pallidum + * 2.4 million Pencillin G IM X1 (1st dose) on 02/24/17, 2nd dose should be on , and 3rd dose of 03/10/17
[2017-02-24] MEDS ORDERED: Penicillin G Benzathine 2.4 Mill Unit/4 ml Syr IM ONE ×2 (18:22→19:05)
--- NOTE | 2017-02-24 18:24 | CP.PCM.PN ---
Subjective - Date & Time of Evaluation Date of Evaluation: 02/24/17 Time of Evaluation: 08:00 - Subjective Subjective: 56 YO MALE WITH NEWLY DX HEP C AND + RPR 1:4 LUCIO LATE LATENT BUT NO CLEAR HX OF TREATMENT EXCEPT POSSIBLE RX IN [place] 20 YRS AGO WILL RX WITH [facility] PCN 2.4 MILLION UNITS INM WEEKLY X 3 WEEKS WITH FOLLOW UP IN CLINIC AND POSSIBLE RX FOR HEP C Objective - Vital Signs/Intake and Output Vital Signs (last 24 hours): Temp Pulse Resp BP Pulse Ox 98.1 F 73 20 131/59 L 100 02/24/17 15:18 02/24/17 15:18 02/24/17 15:18 02/24/17 15:18 02/24/17 15:18 Intake and Output: 02/24/17 02/24/17 06:59 18:59 Intake Total 300 150 Output Total 500 Balance -200 150 - Medications Medications: Current Medications Spironolactone (Aldactone) 25 mg PO DAILY [facility] Last Admin: 02/24/17 09:16 Dose: 25 mg Torsemide (Demadex) 10 mg PO BID [facility] Last Admin: 02/24/17 17:12 Dose: 10 mg - Labs Labs: 02/24/17 11:17 02/24/17 11:17 PT 17.9 SECONDS (9.7-12.2) H 02/21/17 07:12 INR 1.6 02/21/17 07:12 APTT 47 SECONDS (21-34) H 02/19/17 22:00 Assessment and Plan (1) Acute renal failure Status: Acute (2) Anasarca Status: Acute (3) Anemia Status: Acute (4) Ascites Status: Acute (5) Coagulopathy Status: Acute (6) Glomerulonephritis Status: Acute (7) HTN (hypertension) Status: Acute (8) Hepatitis C antibody positive in blood Status: Acute (9) Liver cirrhosis Status: Acute (10) Renal insufficiency Status: Acute (11) Splenomegaly Status: Acute (12) Thrombocytopenia Status: Acute (13) Volume overload Status: Acute (14) Leg swelling Status: Acute (15) Venous stasis Status: Acute
--- NOTE | 2017-02-24 19:09 | PCM.URO ---
Urology Progress Note - General General: Tolerating Diet - Subjective Abdominal Pain: No Nausea: No Vomiting: No Hematuria: No Chest Pain: No Fever & Chills: No - Objective Lab Studies: Reviewed (platelet=38K creat=2.8) Lab Results Last 24 Hours: Laboratory Results - last 24 hr 02/22/17 02/23/17 02/24/17 08:30 07:57 11:17 WBC 4.5 L RBC 2.32 L Hgb 7.9 L Hct 23.1 L MCV 99.5 H MCH 33.9 H MCHC 34.1 RDW 20.6 H Plt Count 38 L MPV 9.4 Neut % (Auto) 58.8 Lymph % (Auto) 22.1 [place] % (Auto) 12.7 H Eos % (Auto) 5.7 H Baso % (Auto) 0.7 Neut # 2.6 Lymph # 1.0 [place] # 0.6 Eos # 0.3 Baso # 0.0 Sodium Potassium Chloride Carbon Dioxide Anion Gap BUN Creatinine Est GFR ( Amer) Est GFR (Non-Af Amer) Random Glucose Calcium Phosphorus Magnesium Iron TIBC % Saturation Ferritin Total Bilirubin AST ALT Alkaline Phosphatase Total Protein Total Protein (PEP) 6.1 Albumin Globulin Albumin/Globulin Ratio T.pallidum Ab (FTA-ABS) Reactive H 02/24/17 02/24/17 11:17 11:17 WBC RBC Hgb Hct MCV MCH MCHC RDW Plt Count MPV Neut % (Auto) Lymph % (Auto) [place] % (Auto) Eos % (Auto) Baso % (Auto) Neut # Lymph # [place] # Eos # Baso # Sodium 142 Potassium 4.2 Chloride 115 H Carbon Dioxide 18 L Anion Gap 13 BUN 56 H Creatinine 2.8 H Est GFR ( Amer) 29 Est GFR (Non-Af Amer) 24 Random Glucose 123 H Calcium 7.9 L Phosphorus 5.0 H Magnesium 1.6 Iron 76 TIBC 132 L % Saturation 58 H Ferritin 331.0 Total Bilirubin 3.5 H AST 61 H ALT 46 Alkaline Phosphatase 71 Total Protein 6.4 Total Protein (PEP) Albumin 2.2 L Globulin 4.2 H Albumin/Globulin Ratio 0.5 L T.pallidum Ab (FTA-ABS) Intake & Output: Intake & Output 09/01/17 09/01/17 09/02/17 06:59 18:59 06:59 Intake Total 300 150 Output Total 500 Balance -200 150 Intake: Oral 300 150 Output: Urine 500 Urine, Voided 500 Other: # Voids Urine, Voided 2 # Bowel Movements 1 Vital Signs: Vital Signs - 24 hr 02/23/17 02/23/17 02/24/17 20:00 21:06 00:00 Temperature 98 F Pulse Rate 83 67 Respiratory 20 Rate Blood Pressure 148/62 152/72 H O2 Sat by Pulse 96 Oximetry 02/24/17 02/24/17 02/24/17 01:00 06:18 07:15 Temperature 98.1 F Pulse Rate 87 82 Respiratory 20 Rate Blood Pressure 149/65 149/65 O2 Sat by Pulse 98 Oximetry 02/24/17 02/24/17 02/24/17 08:02 11:39 13:05 Temperature 98 F 98.2 F Pulse Rate 80 81 80 Respiratory 18 20 Rate Blood Pressure 148/64 154/58 H O2 Sat by Pulse 99 97 Oximetry 02/24/17 15:18 Temperature 98.1 F Pulse Rate 73 Respiratory 20 Rate Blood Pressure 131/59 L O2 Sat by Pulse 100 Oximetry - Physical Exam Abdominal Exam: Soft (distended). absent: Non-Distended (edema of abd wall) Back: No CVA Tenderness Genitalia: Without Inflammation (marked edema) Extremities: Lower Extremity Edema: Bilateral - Male Scrotum: Edema - Plan Additional Information: Imp: anasarca. cirrhosis. thrombocytopenia. edema of genitalia. REC:Scrotal elevation - applied - Date & Time of Note Date: 02/24/17 Time: 10:50
--- NOTE | 2017-02-25 00:20 | CP.PCM.PN ---
<TorinMacy Mirtha - Last Filed: 02/25/17 00:16> Subjective - Date & Time of Evaluation Date of Evaluation: 02/25/17 Time of Evaluation: 07:00 - Subjective Subjective: PGY1- Medicine Resident- Dr. Cohen's Service Patient seen and examined at bedside and in no acute distress. Patient says he is feeling fine. Patient denies shortness of breath, chest pain, abdominal pain , n/v, c/d. Objective - Vital Signs/Intake and Output Vital Signs (last 24 hours): Temp Pulse Resp BP Pulse Ox 98.1 F 73 20 131/59 L 100 02/24/17 15:18 02/24/17 15:18 02/24/17 15:18 02/24/17 15:18 02/24/17 15:18 Intake and Output: 02/24/17 02/25/17 18:59 06:59 Intake Total 150 300 Output Total 300 Balance 150 0 - Medications Medications: Current Medications Spironolactone (Aldactone) 25 mg PO DAILY [facility] Last Admin: 02/24/17 09:16 Dose: 25 mg Torsemide (Demadex) 10 mg PO BID [facility] Last Admin: 02/24/17 17:12 Dose: 10 mg - Labs Labs: 02/24/17 11:17 02/24/17 11:17 PT 17.9 SECONDS (9.7-12.2) H 02/21/17 07:12 INR 1.6 02/21/17 07:12 APTT 47 SECONDS (21-34) H 02/19/17 22:00 - Constitutional Appears: Well, Non-toxic, No Acute Distress - Head Exam Head Exam: ATRAUMATIC, NORMAL INSPECTION, NORMOCEPHALIC - Eye Exam Eye Exam: Conjunctival injection, EOMI, Normal appearance - ENT Exam ENT Exam: Mucous Membranes Moist - Neck Exam Neck Exam: Full ROM. absent: Lymphadenopathy - Respiratory Exam Respiratory Exam: Clear to Ausculation Bilateral, NORMAL BREATHING PATTERN. absent: Rales, Rhonchi, Wheezes, Respiratory Distress, Stridor - Cardiovascular Exam Cardiovascular Exam: REGULAR RHYTHM, RRR. absent: Gallop, Rubs, Murmur - GI/Abdominal Exam GI & Abdominal Exam: Distended, Soft, Normal Bowel Sounds. absent: Guarding - Extremities Exam Extremities Exam: Full ROM, Normal Inspection - Neurological Exam Neurological Exam: Alert, Awake, Oriented x3 - Psychiatric Exam Psychiatric exam: Normal Affect, Normal Mood - Skin Skin Exam: Intact, Normal Color, Warm Assessment and Plan - Assessment and Plan (Free Text) Assessment: HCV * ID ([place]) * Possible outpt therapy upon EtOH cessation * GI ([facility]) * AFP, Hep C viral load and genotype. Refer for transplant evaluation Meningioma * CT Head - Meningioma w/ surrounding edema * told about the risks and benefits thoroughly concerning a neurosurgery consult but did not want to speak with them or have any further intervention regarding this matter Syphilis * +RPR * +FTA-ABS * Penicillin G 2,400,000 units given Cough * CT chest - R. upper lobe pulm nodules, b/l pleural effusions Ascites * GI ([facility]ler) * Check B12 and Folate levels * Schedule paracentesis with IR, send fluid for cell count, albumin, protein, cytology, culture * Hold Diuretics * Liver enzymes: * AST/ALT: 60/51, Alkaline phosphatase: 168 * Albumin: 2.0 * Albumin 25gm IV 2x * Compression stockings * Abdominal US * Splenomegaly, pleural effsuin, ascites, hepatomegaly, cirrhosis, sludge, wall thickening * Echocardiogram * EF 60-65 * CXR - small right pleural effusion * CT: cirrhosis, ascites, calcified hepatic and splenic glaucomas, splenomegaly * Testicular US * Scrotal edema, enlarged L. epididymis, Increased vascularity epididymitis * Daily weight checks * CXR PA/LAT * R. basilar infiltrate, small R. 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 * Needs renal bx but is refusing Anemia * Needs outpatient colonoscopy Pancytopenia * Heme ([place]) * Hold GI PPX for risk of decreasing platelets * No heparin PPX * Ambulate/OOB * Compression stockings <Génesis Cohen V - Last Filed: 02/28/17 15:14> Objective - Vital Signs/Intake and Output Vital Signs (last 24 hours): Temp Pulse Resp BP Pulse Ox 98.4 F 79 18 142/65 20 L 02/25/17 08:00 02/25/17 08:00 02/25/17 08:00 02/25/17 08:00 02/25/17 08:00 - Labs Labs: 02/25/17 06:21 02/25/17 06:21 PT 17.9 SECONDS (9.7-12.2) H 02/21/17 07:12 INR 1.6 02/21/17 07:12 APTT 47 SECONDS (21-34) H 02/19/17 22:00 Attending/Attestation - Attestation I have personally seen and examined this patient.: Yes I have fully participated in the care of the patient.: Yes I have reviewed all pertinent clinical information, including history, physical exam and plan: Yes Notes (Text): This is late computer entry for 02/25/17. Patient seen, examined and case discussed with day-time resident. Patient denies acute complaints. Patient resting comfortable in bed. Patient refuses neurosurgical evaluation for meningoma; and patient instructed he will need 2 more shots of Pencillin for his syphilis; he is instructed that this is a sexually transmitted disease and to wear protection. Patient recommended to follow-up in the clinic for the additional 2 shots. Discussed with health and social care teacher, Domenica, who saw the patient in the morning, and gave him a list of shelters for him to go to upon discharge from the hospital. Discharge instruction explained to the patient on both 02/24/17 and 02/25/17. * Patient is to follow up with the [facility] to establish care. Patient is also to do the following: * From a Nephro standpoint, patient is stable. He is in need of a renal biopsy but is refusing. He should follow up in our clinic or in Dr. Mao's office for the complete workup of his kidney failure. * From a GI standpoint, patient is stable. He should follow up in the clinic or with Dr. Lee in his office for treatment of his hepatitis C * From a ID standpoint, patient is stable. He should follow up in the clinic for treatment of his hepatitis C and to follow up results of his Syphilis confirmatory test. Patient allowed to treat 1st dose of 3 (PCN) for treatment in the hospital. Patient will be due for 2nd dose should be on 03/03/17, and 3rd dose of 03/10/17 recommended to follow-up in the clinic to complete these 2 doses. Since patient is homeless, he has provided his friend's number Jose Antonio Victoria per patients request at but does not want his medical information discussed with his friend. * Rx: Patient being discharged for prescription for Toresemide 10mg by mouth twice a day We advised the patient to see neurosurgery but he declined to speak with them and did not want any intervention regarding his Meningioma. Patient being discharged for prescription for Toresemide 10mg by mouth twice a day (60 tabs/no refills) and Magnesium oxide 400mg PO bid (60 tabs/no refills) per nephrology. Patient advised he will likely need another paracentesis in the future given in liver cirrhosis the ascites will recurs. Patient is to return to the ED if his symptoms reoccur or worsen, this was explained to the patient who understands and agrees. This is a summary of patient's hospitalization. Please review EMR for further details. Discharge diagnoses: 1) Anasarca * [facility] Paperwork in front of the chart * GI (Dr. Lee)-->help appreciated * Nephrology (Dr. Bettencourt)-->help appreciated * Urology (Dr. Chaim Feng)-->help appreciated * Monitor daily weights and intake and out * Patient is a poor historian but confirms he has a "liver problem" and "hepatitis". Patient denies heart problems and unclear regarding kidney problems * Patient also received 2 PRBC total; given hgb; 7's will need to uncover baseline Hgb/Hct values * Compression stockings * Abdominal US-->mild hepatomegaly, echogenic liver, nodular hepatic contour, gallbladder sludge, gallbladder wall thickening/pericholecytstic edema, no gallstones, negative sonographic Gibson's sign, splenomeglay, small left pleural effusion, ascites * Echocardiogram (02/21/17): left ventricle systolic function is normal; EF: 60- 65%, right ventricular systolic function is normal. Mitral regurgitation is mild. Mild tricupsid regurgitation; prior echo from [facility] obtained systolic function intact * CXR - small right pleural effusion * CT scan (02/20/17): hepatitc cirrhosis. entensive ascites. Old calcified hepatic and splenic granulomas, moarked splenomegaly, small left pleural effusion: cirrhosis, ascites, calcified hepatic and splenic glaucomas, splenomegaly * s/p IR paracentesis: 5.5 Liters removed of ascites; patient does not have SBP based on fluid studies * Testicular US (02/20/17): severe bilateral scrotal edema; enlarged left epididmyitis with evidence of increased vascularity-->scrotal elevation * Daily weight checks * CXR PA/LAT (02/20/17): right basilar infiltrate * MELD Score = 24 --> 19.6% estimated 3 month mortality risk-->per GI, recommend transplant eval when stable 2) Pancytopenia * Heme-onc consult (Dr. Sarita Yanez) on consult * received one unit of PRBC on admission and ordered for additional during the day * Platelets low below 50K; no bleeding episodes no acute rashes; patient advised not to scratch * Hx of hepatitis C and hx of cirrhosis 3) Renal insufficiency; * nephrology consult (Dr. Bettencourt) help appreciated * Cr/BUN: 2.7/61; prior Cr: 3.2 upon discharge at [facility] * Diuertic started * monitor intake and output * Completed 24 hour urine collection 02/24/17-->advised to follow-up with nephrology as outpatient upon discharge 4) Hepatitis C+ * Abdominal US-->mild hepatomegaly, echogenic liver, nodular hepatic contour, gallbladder sludge, gallbladder wall thickening/pericholecytstic edema, no gallstones, negative sonographic Gibson's sign, splenomeglay, small left pleural effusion, ascites * ID defers to GI regarding Hepatitis C--->f/u GI as outpatient upon discharge 5) Cirrhosis * Abdominal US-->mild hepatomegaly, echogenic liver, nodular hepatic contour, gallbladder sludge, gallbladder wall thickening/pericholecytstic edema, no gallstones, negative sonographic Gibson's sign, splenomeglay, small left pleural effusion, ascites 6) Thrombocytopenia * Hold GI PPX for risk of decreasing platelets * No heparin dvt secondary to thrombocytopenia * No observed rashes, no abnormal bleeding note; patient counselled to not scratch 7) Cough * CT Chest (02/22/17): Hepatic cirrhosis with splenomegaly and generalized ascites. Small bilateral pleural effusion and lower lobe compressive atelectasis., left greater than right. Several small right upper lobe pulmonary nodules, nonspecific. Anasarca. 8) Hx of Meningoma * Per review of [facility], recommended for neurosurgical intervention; will need to monitor mental status in light of this finding in addition to cirrhotic liver; Patient did not believe had this finding. * Head CT (02/22/17): 2.4 cm lesion in the right inferior frontal region which appears to arise from the sphenoid ridge consistent with an extra-acial meningoma. Lesion is surrounded by vasogenic white matter edema with inferior frontal love extending posteriorly along the external capsule left basal ganglia. mild mass effect as described * Patient refuses neurosurgical evaluation/consult. He was advised given his CT head results and reports he wants to "live with it" in spite of understanding the risks. 9) Syphilius * Infectious Disease (Dr. Geronimo) on board help appreciated * 1:4 titer * T. Pallidum + * 2.4 million Pencillin G IM X1 (1st dose) on 02/24/17 given; will be due for 2nd dose should be on 03/03/17, and 3rd dose of 03/10/17 recommended to follow-up in the clinic to complete these 2 doses.
[2017-02-25 03:59] LABS: CREATININE, 24 HOUR URINE 1.11 g/24 h (0.63-2.50); CREATININE, URINE 0.47 g/L
[2017-02-25 06:35] LABS: BASO % 0.7 % (0.0-2.0); EOS # 0.2 K/uL (0.0-0.7); EOS % 5.3 % (0.0-4.0); HEMATOCRIT 22.6 % (35.0-51.0); LYMPH # 1.1 K/uL (1.0-4.3); LYMPH % 23.7 % (20.0-40.0); MEAN CELL VOLUME 98.6 fL (80.0-94.0); MEAN CORPUSCULAR HGB CONC 34.5 g/dL (33.0-37.0); MEAN PLATELET VOLUME 9.2 fL (7.2-11.7); MONO # 0.6 K/uL (0.0-0.8); MONO % 12.9 % (0.0-10.0); NRBC % 0.1 % (0.0-2.0); RED CELL DISTRIBUTION WIDTH 19.7 % (11.5-14.5); WHITE BLOOD COUNT 4.5 K/uL (4.8-10.8)
[2017-02-25 06:59] LABS: ALB/GLOB RATIO 0.6 (1.0-2.1); BILIRUBIN,TOTAL 3.8 mg/dL (0.2-1.3); CALCIUM 8.1 mg/dl (8.6-10.4); MAGNESIUM 1.5 mg/dL (1.6-2.3); PHOSPHOROUS 4.9 mg/dL (2.5-4.5); POTASSIUM 4.2 mmol/L (3.6-5.2); TOTAL PROTEIN 6.1 g/dL (6.3-8.3)
[2017-02-25 08:22] VITALS: BP 142/65; PULSE 79; RESP 18; TEMP 98.4; O2SAT 20
[2017-02-25 16:00] LABS: KAPPA/LAMBDA FREE RATIO 2.12 (0.26-1.65)
--- NOTE | 2017-02-25 20:03 | CP.PCM.DIS ---
<Maida Monge DO - Last Filed: 02/25/17 20:01> Provider - Provider Date of Admission: 02/19/17 21:54 Attending physician: Génesis Cohen DO Consults: Dr. Mayco Geronimo Time Spent in preparation of Discharge (in minutes): 40 Diagnosis - Discharge Diagnosis (1) Anasarca Status: Acute Comment: likely due to cirrhosis, patient had paracentesis (2) Hepatitis C antibody positive in blood Status: Acute Comment: patient will need outpatient GI follow up for treatment (3) Liver cirrhosis Status: Acute Comment: Likely due to History of hepatitis C (4) Renal insufficiency Status: Acute Comment: patient started on diuretic, seen by nephrology (5) Thrombocytopenia Status: Acute Comment: Patient seen by hematology, given one unit platelets. Hospital Course - Lab Results Lab Results: Micro Results 02/21/17 12:14 Ascitic Fluid Gram Stain - Final 02/21/17 12:14 Ascitic Fluid Body Fluid Culture - Final NO GROWTH AFTER 4 DAYS Most Recent Lab Values WBC 4.5 K/uL (4.8-10.8) L 02/25/17 06:21 RBC 2.29 Mil/uL (4.40-5.90) L 02/25/17 06:21 Hgb 7.8 g/dL (12.0-18.0) L 02/25/17 06:21 Hct 22.6 % (35.0-51.0) L 02/25/17 06:21 MCV 98.6 fL (80.0-94.0) H 02/25/17 06:21 MCH 34.0 pg (27.0-31.0) H 02/25/17 06:21 MCHC 34.5 g/dL (33.0-37.0) 02/25/17 06:21 RDW 19.7 % (11.5-14.5) H 02/25/17 06:21 Plt Count 42 K/uL (130-400) L 02/25/17 06:21 MPV 9.2 fL (7.2-11.7) 02/25/17 06:21 Neut % (Auto) 57.4 % (50.0-75.0) 02/25/17 06:21 Lymph % (Auto) 23.7 % (20.0-40.0) 02/25/17 06:21 [place] % (Auto) 12.9 % (0.0-10.0) H 02/25/17 06:21 Eos % (Auto) 5.3 % (0.0-4.0) H 02/25/17 06:21 Baso % (Auto) 0.7 % (0.0-2.0) 02/25/17 06:21 Neut # 2.6 K/uL (1.8-7.0) 02/25/17 06:21 Lymph # 1.1 K/uL (1.0-4.3) 02/25/17 06:21 [place] # 0.6 K/uL (0.0-0.8) 02/25/17 06:21 Eos # 0.2 K/uL (0.0-0.7) 02/25/17 06:21 Baso # 0.0 K/uL (0.0-0.2) 02/25/17 06:21 Differential Comment 02/25/17 06:21 PT 17.9 SECONDS (9.7-12.2) H 02/21/17 07:12 INR 1.6 02/21/17 07:12 APTT 47 SECONDS (21-34) H 02/19/17 22:00 Sodium 138 mmol/L (132-148) 02/25/17 06:21 Potassium 4.2 mmol/L (3.6-5.2) 02/25/17 06:21 Chloride 112 mmol/L (98-107) H 02/25/17 06:21 Carbon Dioxide 16 mmol/L (22-30) L 02/25/17 06:21 Anion Gap 14 (10-20) 02/25/17 06:21 BUN 55 mg/dL (9-20) H 02/25/17 06:21 Creatinine 2.7 MG/DL (0.8-1.5) H 02/25/17 06:21 Est GFR ( Amer) 30 02/25/17 06:21 Est GFR (Non-Af Amer) 25 02/25/17 06:21 Random Glucose 86 mg/dL (75-110) 02/25/17 06:21 Lactic Acid 1.5 mmol/L (0.7-2.1) 02/19/17 22:00 Calcium 8.1 mg/dl (8.6-10.4) L 02/25/17 06:21 Phosphorus 4.9 mg/dL (2.5-4.5) H 02/25/17 06:21 Magnesium 1.5 mg/dL (1.6-2.3) L 02/25/17 06:21 Iron 76 ug/dL (49-181) 02/24/17 11:17 TIBC 132 ug/dL (250-450) L 02/24/17 11:17 % Saturation 58 (20-55) H 02/24/17 11:17 Ferritin 331.0 ng/mL 02/24/17 11:17 Total Bilirubin 3.8 mg/dL (0.2-1.3) H 02/25/17 06:21 AST 57 U/L (17-59) 02/25/17 06:21 ALT 46 U/L (21-72) 02/25/17 06:21 Alkaline Phosphatase 75 U/L (38-126) 02/25/17 06:21 Ammonia 17 umol/L (9-33) 02/19/17 20:48 Total Protein 6.1 g/dL (6.3-8.3) L 02/25/17 06:21 Total Protein (PEP) 6.1 g/dL (6.1-8.1) 02/23/17 07:57 Albumin 2.2 g/dL (3.5-5.0) L 02/25/17 06:21 Globulin 3.8 gm/dL (2.2-3.9) 02/25/17 06:21 Albumin/Globulin Ratio 0.6 (1.0-2.1) L 02/25/17 06:21 Lipase 1112 U/L (23-300) H 02/19/17 20:48 Alpha Fetoprotein 6.4 ng/mL (0.0-7.5) 02/21/17 07:12 Vitamin B12 834 pg/mL (239-931) 02/21/17 07:12 Folate 12.1 ng/mL 02/21/17 07:12 Urine Color Dominique (YELLOW) 02/21/17 11:08 Urine Clarity Hazy (Clear) 02/21/17 11:08 Urine pH 6.0 (5.0-8.0) 02/21/17 11:08 Ur Specific Pool 1.012 (1.003-1.030) 02/21/17 11:08 Urine Protein 1+ mg/dL (NEGATIVE) H 02/21/17 11:08 Urine Glucose (UA) Normal mg/dL (Normal) 02/21/17 11:08 Urine Ketones Negative mg/dL (NEGATIVE) 02/21/17 11:08 Urine Blood 2+ (NEGATIVE) H 02/21/17 11:08 Urine Nitrate Negative (NEGATIVE) 02/21/17 11:08 Urine Bilirubin Negative (NEGATIVE) 02/21/17 11:08 Urine Urobilinogen Normal mg/dL (0.2-1.0) 02/21/17 11:08 Ur Leukocyte Esterase 1+ Nyasia/uL (Negative) H 02/21/17 11:08 Urine WBC (Auto) 93 /hpf (0-5) H 02/21/17 11:08 Urine RBC (Auto) 391 /hpf (0-3) H 02/21/17 11:08 Ur Squamous Epith Cells 3 /hpf (0-5) 02/21/17 11:08 Urine Bacteria Occ (<OCC) H 02/21/17 11:08 Ur Random Creatinine 88.7 mg/dL 02/23/17 07:52 U Random Total Protein 66.0 mg/dL (0.0-12.0) H 02/21/17 11:13 Ur Random Sodium 16 mmol/L 02/23/17 07:52 Urine Creatinine 0.47 g/L 02/24/17 14:56 Ur Creatinine 24 Hour 1.11 g/24 h (0.63-2.50) 02/24/17 14:56 Ur Total Protein 24 Hr 1231 mg/24 h (<150) H 02/24/17 14:56 Protein/Creat Ratio 24h 1108 mg/g creat (</=84) H 02/24/17 14:56 Urine Total Protein 524 mg/L (50-250) H 02/24/17 14:56 Fluid Source Peritoneal/ascites 02/21/17 14:15 Fluid Appearance Sl cloudy (CLEAR) 02/21/17 14:15 Fluid WBC 106.0 /mm3 (0.0-300.0) 02/21/17 14:15 Fluid RBC 467.0 /mm3 (0.0-0.0) H 02/21/17 14:15 Fluid Tot Cell Count TEST NOT PERFORMED 02/21/17 14:15 Fluid Neutrophils 57.0 % (0-0) H 02/21/17 14:15 Fluid Lymphocytes 41.0 % (0-0) H 02/21/17 14:15 Fld Monocyte/Macrophag 2 % (0-0) H 02/21/17 14:15 Fluid Albumin 0.5 g/dL 02/21/17 14:15 Fluid Comment 02/21/17 14:15 Peritoneal Tot Protein <3.0 g/dL 02/21/17 14:15 Stool Occult Blood Negative (NEGATIVE) 02/22/17 07:16 Urine Opiates Screen Negative (NEGATIVE) 02/19/17 23:22 Urine Methadone Screen Negative (NEGATIVE) 02/19/17 23:22 Ur Barbiturates Screen Negative (NEGATIVE) 02/19/17 23:22 Ur Phencyclidine Scrn Negative (NEGATIVE) 02/19/17 23:22 Ur Amphetamines Screen Negative (NEGATIVE) 02/19/17 23:22 U Benzodiazepines Scrn Negative (NEGATIVE) 02/19/17 23:22 U Oth Cocaine Metabols Negative (NEGATIVE) 02/19/17 23:22 U Cannabinoids Screen Negative (NEGATIVE) 02/19/17 23:22 Serum Cryoglobulins Negative (NEGATIVE) 02/21/17 11:23 Rheumatoid Factor IgG <5 U (<=6) 02/21/17 11:23 Rheumatoid Factor IgA <5 U (<=6) 02/21/17 11:23 Rheumatoid Factor IgM 8 U (<=6) H 02/21/17 11:23 ABIGAIL 6 Profile Negative (NEGATIVE) 02/21/17 11:23 Complement C3 < 40.0 mg/dL (88.0-165.0) L 02/21/17 11:23 Complement C4 10.1 mg/dL (14.0-44.0) L 02/21/17 11:23 Free [place] Light Chains 317.7 mg/L (3.3-19.4) H 02/23/17 07:57 Free Lambda Light Chain 149.6 mg/L (5.7-26.3) H 02/23/17 07:57 Free [place]/Lambda Ratio 2.12 (0.26-1.65) H 02/23/17 07:57 RPR Titer 1:4 (NONREACTIVE) H 02/22/17 08:30 RPR Reactive (NONREACTIVE) H 02/22/17 08:30 T.pallidum Ab (FTA-ABS) Reactive (Nonreactive) H 02/22/17 08:30 Hepatitis A IgM Ab Negative (NEGATIVE) 02/20/17 06:42 Hep Bs Antigen Negative (NEGATIVE) 02/20/17 06:42 Hep B Core IgM Ab Negative (NEGATIVE) 02/20/17 06:42 Hepatitis C Antibody Reactive (NEGATIVE) 02/20/17 06:42 Hepatitis C RNA 94855 IU/mL (<15) H 02/21/17 07:12 HCV RNA Quant (PCR) 4.78 Log IU/mL (<1.18) H 02/21/17 07:12 HIV 1&2 Antibody Screen Negative (NEGATIVE) 02/22/17 08:30 Blood Type O POSITIVE 02/19/17 22:03 Antibody Screen Negative 02/19/17 22:03 - Hospital Course Hospital Course: On admission: Patient is a 56 year old male with no past medical history (as per patient) who presents to the ED with complaints of bilateral leg swelling, distention of the abdomen and b/l testicular swelling that started 4 days ago. Patient reports that he has had similar episodes in the past but he is unsure of the onsets of his symptoms. Patient reports he was admitted [place] [facility] [place] for the same symptoms, where he had a paracentesis, draining about 6 bottles of fluid. Patient admits to abdominal pain, intermittent cough and dyspnea on exertion but denies fever, chills, nausea, vomiting, b/l leg pain, SOB, orthopnea. Patient is a poor historian. Patient presented to the ED for swelling of the abdomen, lower extremities, and genitalia for a few days. On admission a CT was done and found to have liver cirrhoses. Dr. Lee was consulted for the anasarca and liver pathology. He was also found to be anemic and given [address] Drew was also consulted because of thrombocytopenia and recommended transfusion of one unit of platelets. Due to the large amount of fluid retention Dr Carroll was consulted for paracentesis. A total of 5.5L was removed with no issues during the procedure and the platelets were given. Due to the patient declining kidney function, Dr. Mao was consulted for suspected acute renal failure. While being examined, the patient stated he still had some chest congestion. A CT of the chest was done and was negative. A CT of the Brain was ordered and revealed a meningioma. We discussed the results with the patient and he became frustrated about the further need for a work up. He rejected any neuro/ neurosurgery intervention. Dr. Geronimo was consulted for the patients Hep C status andf recommended that GI follow up and he recieve treatment as a an outpatient for HCV. Patient had a +RPR but did not want to wait for the FTA- ABS. Patient is agitated and does not want any further intervention at this time. He will be discharged with instructions to folow up in the clinic for treatment. Patient was instructed to return if the fluid gets severe again. Given that the patient is homeless , he gave us the number of a friend to contact but to NOT REVEAL MEDICAL INFORMATION TO. ONLY TO TELL THE PATIENT IF HE NEEDS TO COME BACK TO THE HOSPITAL OR NOT. Jose Antonio Banks [phone] Patient is stable for discharge home per Dr. Cohen. Patient is to follow up with the [facility] to establish care. Patient is also to do the following: From a Nephro standpoint, patient is stable. He is in need of a renal biopsy but is refusing. He should follow up in our clinic or in Dr. Mao's office for the complete workup of his kidney failure From a GI standpoint, patient is stable. He should follow up in the clinic or with Dr. Lee in his office for treatment of his hepatitis C From a ID standpoint, patient is stable. He should follow up in the clinic for treatment of his hepatitis C and to follow up results of his Syphilis confirmatory test. Patient refuse to stay to find the result but has agreed to give us the phone number of his friend Jose Antonio Victoria per patients request at We advised the patient to see neurosurgery but he declined to speak with them and did not want any intervention regarding his Meningioma Patient being discharged for prescription for Toresemide 10mg by mouth twice a day Patient is to return to the ED if his symptoms reoccur or worsen, this was explained to the patient who understands and agrees. Patient initially discharged on 02/24/17 but patient did not have information regarding shelters at that time. Patient provided with list of shelters and discharged on 02/25/17. This is only a summary of patient's hospitalization for more detail please see complete record Discharge Exam - Head Exam Head Exam: ATRAUMATIC, NORMAL INSPECTION, NORMOCEPHALIC - Eye Exam Eye Exam: EOMI - ENT Exam ENT Exam: Mucous Membranes Moist - Respiratory Exam Respiratory Exam: Rales - Cardiovascular Exam Cardiovascular Exam: REGULAR RHYTHM, +S1, +S2 - GI/Abdominal Exam GI & Abdominal Exam: Distended, Soft - Exam Exam: Scrotal Swelling - Neurological Exam Neurological exam: Alert, Oriented x3 - Psychiatric Exam Psychiatric exam: Normal Affect - Skin Skin Exam: Warm Discharge Plan - Discharge Medications Prescriptions: Magnesium Oxide [Magnesium] 400 mg PO BID #60 capsule Torsemide [Demadex] 10 mg PO BID #60 tab - Follow Up Plan Condition: STABLE Disposition: HOME/ ROUTINE Instructions: Torsemide (By mouth), Acute Kidney Injury (DC), Renal Failure Diet (DC), Myelodysplastic Syndromes (DC), Abdominal Paracentesis (DC), Ascites (DC), Anemia (DC) Additional Instructions: Patient is stable for discharge home per Dr. Cohen. Patient is to follow up with the [facility] to establish care. Patient is also to do the following: From a Nephro standpoint, patient is stable. He is in need of a renal biopsy but is refusing. He should follow up in our clinic or in Dr. Mao's office for the complete workup of his kidney failure From a GI standpoint, patient is stable. He should follow up in the clinic or with Dr. Lee in his office for treatment of his hepatitis C From a ID standpoint, patient is stable. He should follow up in the clinic for treatment of his hepatitis C and to follow up results of his Syphilis confirmatory test. Patient refuse to stay to find the result but has agreed to give us the phone number of his friend Jose Antonio Victoria per patients request at We advised the patient to see neurosurgery but he declined to speak with them and did not want any intervention regarding his Meningioma Patient being discharged for prescription for Toresemide 10mg by mouth twice a day Patient is to return to the ED if his symptoms reoccur or worsen, this was explained to the patient who understands and agrees. Referrals: [facility] [Outside] Ray Yanez MD [Staff Provider] - Justice Geronimo MD [Staff Provider] - Varinder Mao MD [Staff Provider] - Wan Lee MD [Staff Provider] - <Génesis Cohen V - Last Filed: 02/28/17 15:14> Provider - Provider Date of Admission: 02/19/17 21:54 Attending physician: Génesis Cohen, DO Hospital Course - Lab Results Lab Results: Micro Results 02/21/17 12:14 Ascitic Fluid Gram Stain - Final 02/21/17 12:14 Ascitic Fluid Body Fluid Culture - Final NO GROWTH AFTER 4 DAYS Most Recent Lab Values WBC 4.5 K/uL (4.8-10.8) L 02/25/17 06:21 RBC 2.29 Mil/uL (4.40-5.90) L 02/25/17 06:21 Hgb 7.8 g/dL (12.0-18.0) L 02/25/17 06:21 Hct 22.6 % (35.0-51.0) L 02/25/17 06:21 MCV 98.6 fL (80.0-94.0) H 02/25/17 06:21 MCH 34.0 pg (27.0-31.0) H 02/25/17 06:21 MCHC 34.5 g/dL (33.0-37.0) 02/25/17 06:21 RDW 19.7 % (11.5-14.5) H 02/25/17 06:21 Plt Count 42 K/uL (130-400) L 02/25/17 06:21 MPV 9.2 fL (7.2-11.7) 02/25/17 06:21 Neut % (Auto) 57.4 % (50.0-75.0) 02/25/17 06:21 Lymph % (Auto) 23.7 % (20.0-40.0) 02/25/17 06:21 [place] % (Auto) 12.9 % (0.0-10.0) H 02/25/17 06:21 Eos % (Auto) 5.3 % (0.0-4.0) H 02/25/17 06:21 Baso % (Auto) 0.7 % (0.0-2.0) 02/25/17 06:21 Neut # 2.6 K/uL (1.8-7.0) 02/25/17 06:21 Lymph # 1.1 K/uL (1.0-4.3) 02/25/17 06:21 [place] # 0.6 K/uL (0.0-0.8) 02/25/17 06:21 Eos # 0.2 K/uL (0.0-0.7) 02/25/17 06:21 Baso # 0.0 K/uL (0.0-0.2) 02/25/17 06:21 Differential Comment 02/25/17 06:21 PT 17.9 SECONDS (9.7-12.2) H 02/21/17 07:12 INR 1.6 02/21/17 07:12 APTT 47 SECONDS (21-34) H 02/19/17 22:00 Sodium 138 mmol/L (132-148) 02/25/17 06:21 Potassium 4.2 mmol/L (3.6-5.2) 02/25/17 06:21 Chloride 112 mmol/L (98-107) H 02/25/17 06:21 Carbon Dioxide 16 mmol/L (22-30) L 02/25/17 06:21 Anion Gap 14 (10-20) 02/25/17 06:21 BUN 55 mg/dL (9-20) H 02/25/17 06:21 Creatinine 2.7 MG/DL (0.8-1.5) H 02/25/17 06:21 Est GFR ( Amer) 30 02/25/17 06:21 Est GFR (Non-Af Amer) 25 02/25/17 06:21 Random Glucose 86 mg/dL (75-110) 02/25/17 06:21 Lactic Acid 1.5 mmol/L (0.7-2.1) 02/19/17 22:00 Calcium 8.1 mg/dl (8.6-10.4) L 02/25/17 06:21 Phosphorus 4.9 mg/dL (2.5-4.5) H 02/25/17 06:21 Magnesium 1.5 mg/dL (1.6-2.3) L 02/25/17 06:21 Iron 76 ug/dL (49-181) 02/24/17 11:17 TIBC 132 ug/dL (250-450) L 02/24/17 11:17 % Saturation 58 (20-55) H 02/24/17 11:17 Ferritin 331.0 ng/mL 02/24/17 11:17 Total Bilirubin 3.8 mg/dL (0.2-1.3) H 02/25/17 06:21 AST 57 U/L (17-59) 02/25/17 06:21 ALT 46 U/L (21-72) 02/25/17 06:21 Alkaline Phosphatase 75 U/L (38-126) 02/25/17 06:21 Ammonia 17 umol/L (9-33) 02/19/17 20:48 Total Protein 6.1 g/dL (6.3-8.3) L 02/25/17 06:21 Total Protein (PEP) 6.1 g/dL (6.1-8.1) 02/23/17 07:57 Albumin 2.2 g/dL (3.5-5.0) L 02/25/17 06:21 Albumin (PEP) 2.6 g/dL (3.8-4.8) L 02/23/17 07:57 Globulin 3.8 gm/dL (2.2-3.9) 02/25/17 06:21 Albumin/Globulin Ratio 0.6 (1.0-2.1) L 02/25/17 06:21 Yrhyw-5-Eilgpmkjv 0.2 g/dL (0.2-0.3) 02/23/17 07:57 Bwtfg-8-Yccpmsikm 0.3 g/dL (0.5-0.9) L 02/23/17 07:57 Wgfo-4-Sooehaed 0.2 g/dL (0.4-0.6) L 02/23/17 07:57 Objv-3-Cqreomvd 0.3 g/dL (0.2-0.5) 02/23/17 07:57 Gamma Globulins 2.5 g/dL (0.8-1.7) H 02/23/17 07:57 Abnorm Protein Band 1 TEST NOT PERFORMED 02/23/17 07:57 Abnorm Protein Band 2 TEST NOT PERFORMED 02/23/17 07:57 Abnorm Protein Band 3 TEST NOT PERFORMED 02/23/17 07:57 Lipase 1112 U/L (23-300) H 02/19/17 20:48 Alpha Fetoprotein 6.4 ng/mL (0.0-7.5) 02/21/17 07:12 Vitamin B12 834 pg/mL (239-931) 02/21/17 07:12 Folate 12.1 ng/mL 02/21/17 07:12 Urine Color Dominique (YELLOW) 02/21/17 11:08 Urine Clarity Hazy (Clear) 02/21/17 11:08 Urine pH 6.0 (5.0-8.0) 02/21/17 11:08 Ur Specific Pool 1.012 (1.003-1.030) 02/21/17 11:08 Urine Protein 1+ mg/dL (NEGATIVE) H 02/21/17 11:08 Urine Glucose (UA) Normal mg/dL (Normal) 02/21/17 11:08 Urine Ketones Negative mg/dL (NEGATIVE) 02/21/17 11:08 Urine Blood 2+ (NEGATIVE) H 02/21/17 11:08 Urine Nitrate Negative (NEGATIVE) 02/21/17 11:08 Urine Bilirubin Negative (NEGATIVE) 02/21/17 11:08 Urine Urobilinogen Normal mg/dL (0.2-1.0) 02/21/17 11:08 Ur Leukocyte Esterase 1+ Nyasia/uL (Negative) H 02/21/17 11:08 Urine WBC (Auto) 93 /hpf (0-5) H 02/21/17 11:08 Urine RBC (Auto) 391 /hpf (0-3) H 02/21/17 11:08 Ur Squamous Epith Cells 3 /hpf (0-5) 02/21/17 11:08 Urine Bacteria Occ (<OCC) H 02/21/17 11:08 Ur Random Creatinine 88.7 mg/dL 02/23/17 07:52 U Random Total Protein 66.0 mg/dL (0.0-12.0) H 02/21/17 11:13 Ur Random Sodium 16 mmol/L 02/23/17 07:52 Urine Creatinine 0.47 g/L 02/24/17 14:56 Ur Creatinine 24 Hour 1.11 g/24 h (0.63-2.50) 02/24/17 14:56 Ur Total Protein 24 Hr 1231 mg/24 h (<150) H 02/24/17 14:56 Protein/Creat Ratio 24h 1108 mg/g creat (</=84) H 02/24/17 14:56 Urine Total Protein 524 mg/L (50-250) H 02/24/17 14:56 Fluid Source Peritoneal/ascites 02/21/17 14:15 Fluid Appearance Sl cloudy (CLEAR) 02/21/17 14:15 Fluid WBC 106.0 /mm3 (0.0-300.0) 02/21/17 14:15 Fluid RBC 467.0 /mm3 (0.0-0.0) H 02/21/17 14:15 Fluid Tot Cell Count TEST NOT PERFORMED 02/21/17 14:15 Fluid Neutrophils 57.0 % (0-0) H 02/21/17 14:15 Fluid Lymphocytes 41.0 % (0-0) H 02/21/17 14:15 Fld Monocyte/Macrophag 2 % (0-0) H 02/21/17 14:15 Fluid Albumin 0.5 g/dL 02/21/17 14:15 Fluid Comment 02/21/17 14:15 Peritoneal Tot Protein <3.0 g/dL 02/21/17 14:15 Stool Occult Blood Negative (NEGATIVE) 02/22/17 07:16 Urine Opiates Screen Negative (NEGATIVE) 02/19/17 23:22 Urine Methadone Screen Negative (NEGATIVE) 02/19/17 23:22 Ur Barbiturates Screen Negative (NEGATIVE) 02/19/17 23:22 Ur Phencyclidine Scrn Negative (NEGATIVE) 02/19/17 23:22 Ur Amphetamines Screen Negative (NEGATIVE) 02/19/17 23:22 U Benzodiazepines Scrn Negative (NEGATIVE) 02/19/17 23:22 U Oth Cocaine Metabols Negative (NEGATIVE) 02/19/17 23:22 U Cannabinoids Screen Negative (NEGATIVE) 02/19/17 23:22 PORSHA & SPEP Interp See note 02/23/17 07:57 Serum Cryoglobulins Negative (NEGATIVE) 02/21/17 11:23 Rheumatoid Factor IgG <5 U (<=6) 02/21/17 11:23 Rheumatoid Factor IgA <5 U (<=6) 02/21/17 11:23 Rheumatoid Factor IgM 8 U (<=6) H 02/21/17 11:23 ABIGAIL 6 Profile Negative (NEGATIVE) 02/21/17 11:23 Complement C3 < 40.0 mg/dL (88.0-165.0) L 02/21/17 11:23 Complement C4 10.1 mg/dL (14.0-44.0) L 02/21/17 11:23 [place]/Lambda Light Chain see note 02/23/17 07:57 Free [place] Light Chains 317.7 mg/L (3.3-19.4) H 02/23/17 07:57 Free Lambda Light Chain 149.6 mg/L (5.7-26.3) H 02/23/17 07:57 Free [place]/Lambda Ratio 2.12 (0.26-1.65) H 02/23/17 07:57 RPR Titer 1:4 (NONREACTIVE) H 02/22/17 08:30 RPR Reactive (NONREACTIVE) H 02/22/17 08:30 T.pallidum Ab (FTA-ABS) Reactive (Nonreactive) H 02/22/17 08:30 Hepatitis A IgM Ab Negative (NEGATIVE) 02/20/17 06:42 Hep Bs Antigen Negative (NEGATIVE) 02/20/17 06:42 Hep B Core IgM Ab Negative (NEGATIVE) 02/20/17 06:42 Hepatitis C Antibody Reactive (NEGATIVE) 02/20/17 06:42 Hepatitis C RNA 36453 IU/mL (<15) H 02/21/17 07:12 HCV RNA Genotype LiPA 1b (Not Detected) H 02/21/17 07:33 HCV RNA Quant (PCR) 4.78 Log IU/mL (<1.18) H 02/21/17 07:12 HIV 1&2 Antibody Screen Negative (NEGATIVE) 02/22/17 08:30 Blood Type O POSITIVE 02/19/17 22:03 Antibody Screen Negative 02/19/17 22:03 Attending/Attestation - Attestation I have personally seen and examined this patient.: Yes I have fully participated in the care of the patient.: Yes I have reviewed all pertinent clinical information, including history, physical exam and plan: Yes Notes (Text): This is late computer entry for 02/25/17. Patient seen, examined and case discussed with day-time resident. Patient denies acute complaints. Patient resting comfortable in bed. Patient refuses neurosurgical evaluation for meningoma; and patient instructed he will need 2 more shots of Pencillin for his syphilis; he is instructed that this is a sexually transmitted disease and to wear protection. Patient recommended to follow-up in the clinic for the additional 2 shots. Discussed with director social service, Domenica, who saw the patient in the morning, and gave him a list of shelters for him to go to upon discharge from the hospital. Discharge instruction explained to the patient on both 02/24/17 and 02/25/17. * Patient is to follow up with the [facility] to establish care. Patient is also to do the following: * From a Nephro standpoint, patient is stable. He is in need of a renal biopsy but is refusing. He should follow up in our clinic or in Dr. Mao's office for the complete workup of his kidney failure. * From a GI standpoint, patient is stable. He should follow up in the clinic or with Dr. Lee in his office for treatment of his hepatitis C * From a ID standpoint, patient is stable. He should follow up in the clinic for treatment of his hepatitis C and to follow up results of his Syphilis confirmatory test. Patient allowed to treat 1st dose of 3 (PCN) for treatment in the hospital. Patient will be due for 2nd dose should be on 03/03/17, and 3rd dose of 03/10/17 recommended to follow-up in the clinic to complete these 2 doses. Since patient is homeless, he has provided his friend's number Jose Antonio Victoria per patients request at but does not want his medical information discussed with his friend. * Rx: Patient being discharged for prescription for Toresemide 10mg by mouth twice a day We advised the patient to see neurosurgery but he declined to speak with them and did not want any intervention regarding his Meningioma. Patient being discharged for prescription for Toresemide 10mg by mouth twice a day (60 tabs/no refills) and Magnesium oxide 400mg PO bid (60 tabs/no refills) per nephrology. Patient advised he will likely need another paracentesis in the future given in liver cirrhosis the ascites will recurs. Patient is to return to the ED if his symptoms reoccur or worsen, this was explained to the patient who understands and agrees. This is a summary of patient's hospitalization. Please review EMR for further details. Discharge diagnoses: 1) Anasarca * [facility] [place] front of [place] chart * GI (Dr. Lee)-->help appreciated * Nephrology (Dr. Bettencourt)-->help appreciated * Urology (Dr. Chaim Feng)-->help appreciated * Monitor daily weights and intake and out * Patient is a poor historian but confirms he has a "liver problem" and "hepatitis". Patient denies heart problems and unclear regarding kidney problems * Patient also received 2 PRBC total; given hgb; 7's will need to uncover baseline Hgb/Hct values * Compression stockings * Abdominal US-->mild hepatomegaly, echogenic liver, nodular hepatic contour, gallbladder sludge, gallbladder wall thickening/pericholecytstic edema, no gallstones, negative sonographic Gibson's sign, splenomeglay, small left pleural effusion, ascites * Echocardiogram (02/21/17): left ventricle systolic function is normal; EF: 60- 65%, right ventricular systolic function is normal. Mitral regurgitation is mild. Mild tricupsid regurgitation; prior echo from [facility] [place] obtained systolic function intact * CXR - small right pleural effusion * CT scan (02/20/17): hepatitc cirrhosis. entensive ascites. Old calcified hepatic and splenic granulomas, moarked splenomegaly, small left pleural effusion: cirrhosis, ascites, calcified hepatic and splenic glaucomas, splenomegaly * s/p IR paracentesis: 5.5 Liters removed of ascites; patient does not have SBP based on fluid studies * Testicular US (02/20/17): severe bilateral scrotal edema; enlarged left epididmyitis with evidence of increased vascularity-->scrotal elevation * Daily weight checks * CXR PA/LAT (02/20/17): right basilar infiltrate * MELD Score = 24 --> 19.6% estimated 3 month mortality risk-->per GI, recommend transplant eval when stable 2) Pancytopenia * Heme-onc consult (Dr. Sarita Yanez) on consult * received one unit of PRBC on admission and ordered for additional during the day * Platelets low below 50K; no bleeding episodes no acute rashes; patient advised not to scratch * Hx of hepatitis C and hx of cirrhosis 3) Renal insufficiency; * nephrology consult (Dr. Bettencourt) help appreciated * Cr/BUN: 2.7/61; prior Cr: 3.2 [place] [facility] [place] Diuertic started * monitor intake and output * Completed 24 hour urine collection 02/24/17-->advised to follow-up with nephrology as outpatient upon discharge 4) Hepatitis C+ * Abdominal US-->mild hepatomegaly, echogenic liver, nodular hepatic contour, gallbladder sludge, gallbladder wall thickening/pericholecytstic edema, no gallstones, negative sonographic Gibson's sign, splenomeglay, small left pleural effusion, ascites * ID defers to GI regarding Hepatitis C--->f/u GI as outpatient upon discharge 5) Cirrhosis * Abdominal US-->mild hepatomegaly, echogenic liver, nodular hepatic contour, gallbladder sludge, gallbladder wall thickening/pericholecytstic edema, no gallstones, negative sonographic Gibson's sign, splenomeglay, small left pleural effusion, ascites 6) Thrombocytopenia * Hold GI PPX for risk of decreasing platelets * No heparin dvt secondary to thrombocytopenia * No observed rashes, no abnormal bleeding note; patient counselled to not scratch 7) Cough * CT Chest (02/22/17): Hepatic cirrhosis with splenomegaly and generalized ascites. Small bilateral pleural effusion and lower lobe compressive atelectasis., left greater than right. Several small right upper lobe pulmonary nodules, nonspecific. Anasarca. 8) Hx of Meningoma * Per review of [facility] recommended for neurosurgical intervention; will need to monitor mental status in light of this finding in addition to cirrhotic liver; Patient did not believe had this finding. * Head CT (02/22/17): 2.4 cm lesion in the right inferior frontal region which appears to arise from the sphenoid ridge consistent with an extra-acial meningoma. Lesion is surrounded by vasogenic white matter edema with inferior frontal love extending posteriorly along the external capsule left basal ganglia. mild mass effect as described * Patient refuses neurosurgical evaluation/consult. He was advised given his CT head results and reports he wants to "live with it" in spite of understanding the risks. 9) Syphilis * Infectious Disease (Dr. Geronimo) on board help appreciated * 1:4 titer * T. Pallidum + * 2.4 million Pencillin G IM X1 (1st dose) on 02/24/17 given; will be due for 2nd dose should be on 03/03/17, and 3rd dose of 03/10/17 recommended to follow-up in the clinic to complete these 2 doses.
--- NOTE | 2017-02-25 21:21 | CP.PCM.PN ---
Subjective - Date & Time of Evaluation Date of Evaluation: 02/25/17 Time of Evaluation: 16:00 - Subjective Subjective: No complaints. Objective - Vital Signs/Intake and Output Vital Signs (last 24 hours): Temp Pulse Resp BP Pulse Ox 98.4 F 79 18 142/65 20 L 02/25/17 08:00 02/25/17 08:00 02/25/17 08:00 02/25/17 08:00 02/25/17 08:00 - Medications Medications: Current Medications Spironolactone (Aldactone) 25 mg PO DAILY [facility] Last Admin: 02/25/17 10:04 Dose: 25 mg Torsemide (Demadex) 10 mg PO BID [facility] Last Admin: 02/25/17 10:04 Dose: 10 mg - Labs Labs: 02/25/17 06:21 02/25/17 06:21 PT 17.9 SECONDS (9.7-12.2) H 02/21/17 07:12 INR 1.6 02/21/17 07:12 APTT 47 SECONDS (21-34) H 02/19/17 22:00 - Head Exam Head Exam: ATRAUMATIC - Eye Exam Eye Exam: Normal appearance - ENT Exam ENT Exam: Mucous Membranes Dry - Respiratory Exam Respiratory Exam: NORMAL BREATHING PATTERN - Cardiovascular Exam Cardiovascular Exam: +S1, +S2 - GI/Abdominal Exam GI & Abdominal Exam: Normal Bowel Sounds Assessment and Plan (1) Thrombocytopenia Assessment & Plan: hep c, liver disease, splenic sequestration Status: Acute (2) Anemia Assessment & Plan: chronic disease, splenic sequestration Status: Acute (3) Coagulopathy Assessment & Plan: liver disease Status: Acute (4) Splenomegaly Assessment & Plan: secondary to pHTN Status: Acute
[2017-02-28 08:34] LABS: BETA 1 GLOBULIN 0.2 g/dL (0.4-0.6); BETA 2 GLOBULIN 0.3 g/dL (0.2-0.5); GAMMA GLOBULIN 2.5 g/dL (0.8-1.7)
[2017-02-28 15:36] LABS: GAMMA GLOBULIN 31.5 Relative %
== END 2017-02-25 22:27 | disposition home or self-care (01) | DRG 557 ==
LOC: C.ER 19:52 → C.9E 21:54 → C.5T 02-20 07:00 → C.6T 02-24 11:26
PROVIDERS: ADMIT Hospitalist; ATTEND Hospitalist
PROC: 0W9G3ZZ Drainage of Peritoneal Cavity, Percutaneous Approach (ICD-10-PCS; principal; 2017-02-21)
PROC: 30230N1 Transfusion of Nonautologous Red Blood Cells into Peripheral Vein, Open Approach (ICD-10-PCS; 2017-02-21)
DX: K70.31 Alcoholic cirrhosis of liver with ascites (principal); N00.9 Acute nephritic syndrome with unspecified morphologic changes; N17.9 Acute kidney failure, unspecified; J90 Pleural effusion, not elsewhere classified; D61.818 Other pancytopenia; E87.70 Fluid overload, unspecified; B19.20 Unspecified viral hepatitis C without hepatic coma; N18.9 Chronic kidney disease, unspecified; J98.11 Atelectasis; D68.9 Coagulation defect, unspecified; I27.2 Other secondary pulmonary hypertension; R16.1 Splenomegaly, not elsewhere classified; Z59.0 Homelessness; F17.210 Nicotine dependence, cigarettes, uncomplicated; D63.1 Anemia in chronic kidney disease; I12.9 Hypertensive chronic kidney disease with stage 1 through stage 4 chronic kidney disease, or unspecified chronic kidney disease; D32.9 Benign neoplasm of meninges, unspecified; I87.8 Other specified disorders of veins; N45.1 Epididymitis; Z86.011 Personal history of benign neoplasm of the brain

== ENCOUNTER 2017-03-01 23:26 | Inpatient (IN) | payer MEDICAID ==
[2017-03-01] MEDS ORDERED: Albuterol-Ipratrop 3 mg / 0.5 (3 ml) UD INH STA (23:50)
[2017-03-01] MEDS ORDERED: Albuterol-Ipratrop 3 mg / 0.5 (3 ml) UD ONE (23:52)
--- NOTE | 2017-03-01 23:57 | C.PDOC ---
History Of Present Illness patient presents with increased ascitis and leg edema worsening over the last few days. Pt has had paracentisis in the past. No f/c/n/v Speaking in complete sentences Time Seen by Provider: 03/01/17 23:56 Chief Complaint (Nursing): Abdominal Pain History Per: Patient History/Exam Limitations: no limitations Onset/Duration Of Symptoms: Days Current Symptoms Are (Timing): Worse Context: Other Severity: Moderate Pain Scale Rating Of: 4 Location Of Pain/Discomfort: Diffuse Radiation Of Pain To:: None Quality Of Discomfort: Dull, Pressure Associated Symptoms: denies: Fever, Chills, Nausea Exacerbating Factors: Movement Alleviating Factors: None Last Bowel Movement: Today Recent travel outside of the [place]: No Additional History Per: Patient Past Medical History Reviewed: Historical Data, Nursing Documentation, Vital Signs Vital Signs: Last Vital Signs Temp 97.8 F 03/01/17 23:31 Pulse 94 H 03/01/17 23:31 Resp 20 03/01/17 23:31 BP 146/77 03/01/17 23:43 Pulse Ox 98 03/02/17 00:24 - Medical History PMH: Anxiety - [facility] Procedures DRAINAGE OF PERITONEAL CAVITY, PERCUTANEOUS APPROACH (02/19/17) TRANSFUSE NONAUT RED BLOOD CELLS IN PERIPH VEIN, OPEN (02/19/17) Family History: States: No Known Family Hx - Social History Hx Alcohol Use: No Hx Substance Use: No - Immunization History Hx Tetanus Toxoid Vaccination: No Hx Influenza Vaccination: No Hx Pneumococcal Vaccination: No Review Of Systems Constitutional: Negative for: Fever, Chills Eyes: Negative for: Redness ENT: Negative for: Throat Pain Cardiovascular: Negative for: Chest Pain Respiratory: Positive for: Shortness of Breath Gastrointestinal: Positive for: Abdominal Pain. Negative for: Nausea, Vomiting Genitourinary: Negative for: Dysuria Musculoskeletal: Negative for: Back Pain Skin: Negative for: Lesions Neurological: Negative for: Weakness Psych: Negative for: Anxiety Physical Exam - Physical Exam Appears: Non-toxic Skin: Warm, Dry Head: Normacephalic Eye(s): bilateral: Normal Inspection Oral Mucosa: Moist Neck: Supple Chest: Symmetrical Cardiovascular: Rhythm Regular Respiratory: No Rales, Rhonchi, No Wheezing Gastrointestinal/Abdominal: Bowel Sounds (decreased), Tenderness, Distention, No Guarding, No Rebound, Ascites Back: No CVA Tenderness Male Genital: Scrotal Swelling (mild) Extremity: Pedal Edema Extremity: Bilateral: Atraumatic Pulses: Left Dorsalis Pedis: Normal, Right Dorsalis Pedis: Normal Neurological/Psych: Oriented x3 Gait: Unable To Assess ED Course And Treatment - Laboratory Results Result Diagrams: 03/01/17 23:55 03/01/17 23:55 ECG: Interpreted By Me, Viewed By Me ECG Rhythm: Sinus Rhythm (89), Nonspecific Changes O2 Sat by Pulse Oximetry: 98 Pulse Ox Interpretation: Normal - Radiology CXR: Interpreted by Me, Viewed By Me CXR Interpretation: Yes: Other (mild vascular congestion). No: Infiltrates, Fracture, Cardiomegaly Disposition Discussed With Dr.: Char Deng Comment: accepted the pt on his service and took over the care at 12:55 AM Doctor Will See Patient In The: Hospital Counseled Patient/Family Regarding: Studies Performed, Diagnosis - Disposition Disposition: HOSPITALIZED Disposition Time: 23:57 Condition: FAIR Forms: [employer] (Citizen Of [place]) - POA Present On Arrival: Poor Glycemic Control - Clinical Impression Clinical Impression: Abdominal pain, Leg swelling, Liver cirrhosis, Ascites, Anemia Decision To Admit - Pt Status Changed To: Hospital Disposition Of: Inpatient - Admit Certification Admit to Inpatient:: After my assessment, the patient will require hospitalization for at least two midnights. This is because of the severity of symptoms shown, intensity of services needed, and/or the medical risk in this patient being treated as an outpatient. - InPatient: Physician Admission Certification:: After my assessment, the patient will require hospitalization for at least two midnights. This is because of the severity of symptoms shown, intensity of services needed, and/or the medical risk in this patient being treated as an outpatient. - . Bed Request Type: Regular Admitting Physician: Char Deng Patient Diagnosis: Abdominal pain, Leg swelling, Liver cirrhosis, Ascites, Anemia
[2017-03-02 00:15] LABS: BASO % 0.5 % (0.0-2.0); EOS # 0.3 K/uL (0.0-0.7); EOS % 6.5 % (0.0-4.0); HEMATOCRIT 20.4 % (35.0-51.0); LYMPH # 0.9 K/uL (1.0-4.3); LYMPH % 22.5 % (20.0-40.0); MEAN CELL VOLUME 101.1 fL (80.0-94.0); MEAN CORPUSCULAR HEMOGLOBIN 34.2 pg (27.0-31.0); MEAN CORPUSCULAR HGB CONC 33.9 g/dL (33.0-37.0); MEAN PLATELET VOLUME 9.4 fL (7.2-11.7); MONO # 0.4 K/uL (0.0-0.8); MONO % 10.7 % (0.0-10.0); NRBC % 0.1 % (0.0-2.0); RED CELL DISTRIBUTION WIDTH 19.7 % (11.5-14.5); WHITE BLOOD COUNT 4.1 K/uL (4.8-10.8)
[2017-03-02 00:31] LABS: POTASSIUM 4.6 mmol/L (3.6-5.2)
[2017-03-02 00:34] LABS: TOTAL PROTEIN 7.2 g/dL (6.3-8.3)
[2017-03-02 00:38] LABS: ALB/GLOB RATIO 0.6 (1.0-2.1)
[2017-03-02] MEDS ORDERED: Albuterol-Ipratrop 3 mg / 0.5 (3 ml) UD ONE (00:45)
[2017-03-02 01:12] LABS: INR 1.7
--- NOTE | 2017-03-02 08:30 | RAD ---
HISTORY: SOB COMPARISON: 02/20/2017 FINDINGS: LUNGS: Central pulmonary venous congestion. No consolidation appreciated. Tiny right pleural effusion probable and similar. Re-expansion /clearing of the prior right lung base opacity. PLEURA: Tiny right pleural effusion similar. No pneumothorax faint right vianca diaphragmatic calcified pleural plaque CARDIOVASCULAR: Mild cardiomegaly less pronounced OSSEOUS STRUCTURES: No significant abnormalities. VISUALIZED UPPER ABDOMEN: Normal. OTHER FINDINGS: None. IMPRESSION: Residual central pulmonary venous congestion Improved aeration right lung base. Probable tiny right pleural effusion persisting No interval pathology noted.
[2017-03-02] MEDS ORDERED: Penicillin G Benzathine 2.4 Mill Unit/4 ml Syr IM ONE (11:42)
--- NOTE | 2017-03-02 12:25 | CARD ---
APPROVED REPORT EKG Measurement Heart [id number] OR [id number] [id number] <Conclusion> Normal sinus rhythm Normal ECG
--- NOTE | 2017-03-02 14:00 | CP.PCM.PN ---
Subjective - Date & Time of Evaluation Date of Evaluation: 03/02/17 Time of Evaluation: 09:05 - Subjective Subjective: PGY2 medicine progress note for Dr. Deng: Patient is a 57 year old male with PMHx hepatitis C, syphillis, glomerulonephritis, meningioma who presents with complaint of abdominal distention, leg swelling, and dyspnea. Patient was recently discharged on after being treated for the above conditions. Patient did not follow up for treatment since discharge and admits to medication non-compliance. Patient does not wish to answer more questions regarding his condition at this time. Objective - Vital Signs/Intake and Output Vital Signs (last 24 hours): Temp Pulse Resp BP Pulse Ox 98.4 F 82 18 130/66 100 03/02/17 12:05 03/02/17 12:05 03/02/17 12:05 03/02/17 12:05 03/02/17 08:13 Intake and Output: 03/02/17 03/02/17 06:59 18:59 Intake Total 400 0 Output Total 350 Balance 50 0 - Medications Medications: Current Medications Lactulose (Enulose) 20 gm PO BID [facility] Pneumococcal Polyvalent Vaccine (Pneumovax 23 Vaccine) 0.5 ml IM .ONCE ONE Stop: 03/04/17 10:01 Spironolactone (Aldactone) 12.5 mg PO DAILY [facility] Last Admin: 03/02/17 12:40 Dose: 12.5 mg Torsemide (Demadex) 10 mg PO BID [facility] Last Admin: 03/02/17 12:40 Dose: 10 mg - Labs Labs: PT 19.2 SECONDS (9.7-12.2) H 03/02/17 00:58 INR 1.7 03/02/17 00:58 APTT 38 SECONDS (21-34) H 03/02/17 00:58 - Constitutional Appears: No Acute Distress, Older Than Stated Age, Chronically Ill - Head Exam Head Exam: ATRAUMATIC, NORMOCEPHALIC - Eye Exam Eye Exam: EOMI - ENT Exam ENT Exam: Mucous Membranes Moist - Respiratory Exam Respiratory Exam: Rhonchi. absent: Respiratory Distress - Cardiovascular Exam Cardiovascular Exam: +S1, +S2 - GI/Abdominal Exam GI & Abdominal Exam: Distended, Firm, Normal Bowel Sounds. absent: Guarding, Rigid, Tenderness - Extremities Exam Extremities Exam: Pedal Edema (3+ pitting b/l) - Neurological Exam Neurological Exam: Awake - Skin Skin Exam: Dry, Warm Assessment and Plan - Assessment and Plan (Free Text) Assessment: Cirrhosis with Ascites patient with past history alcohol use, also history hepatitis C that has not been treated MELD score 24, 19.6% 3 month mortality risk patient had paracentesis on 02/21/17 with removal of 5.5L straw colored fluid IR consult placed for Dr. Carroll for repeat paracentesis From prior admission in January 2017: * Abdominal US-->mild hepatomegaly, echogenic liver, nodular hepatic contour, gallbladder sludge, gallbladder wall thickening/pericholecytstic edema, no gallstones, negative sonographic Gibson's sign, splenomeglay, small left pleural effusion, ascites * Echocardiogram (02/21/17): left ventricle systolic function is normal; EF: 60- 65%, right ventricular systolic function is normal. Mitral regurgitation is mild. Mild tricupsid regurgitation; prior echo from [facility] [place] obtained systolic function intact * CT scan (02/20/17): hepatitc cirrhosis. entensive ascites. Old calcified hepatic and splenic granulomas, moarked splenomegaly, small left pleural effusion: cirrhosis, ascites, calcified hepatic and splenic glaucomas, splenomegaly starting torsemide, aldactone, lactulose Renal failure seen by Dr. Mao last admission consult placed for Dr. Bland, covering Dr. Mao Most likely MPGN 2/2 to hep C patient refused renal biopsy last admission 24h urine 02/24/17: Urine creatinine 0.47, ur creatinine 24h 1.11, ur total prot 24h 1231, prot/ creat ratio 24h 1108, urine total prot 524, urine albumin 60.2, urine protein fractions pattern consistent with glomerular protienuria Anemia likely due to chronic disease patient ordered for 1 unit PRBC patient received multiple transfusions in past and has many antibodies 02/21/17: B12 834 folate 12.1 will check stool OB Pancytopenia likely due to cirrhosis/ hepatitis C Syphilis patient received one dose 2.4 million Pencillin G IM X1 (1st dose) on 02/24/17, second dose ordered for today 03/02/17 Hepatitis C patient to follow up on discharge with GI for treatment options Meningioma Head CT (02/22/17): 2.4 cm lesion in the right inferior frontal region which appears to arise from the sphenoid ridge consistent with an extra-acial meningoma. Lesion is surrounded by vasogenic white matter edema with inferior frontal love extending posteriorly along the external capsule left basal ganglia. mild mass effect as described * Patient refuses neurosurgical evaluation/consult last admission Prophylaxis hold chemical anticoagulation due to thrombocytopenia hold GI prophylaxis due to side effect of thrombocytopenia All medical management as per Dr. Deng
[2017-03-02] MEDS: Albuterol-Ipratrop 3 mg / 0.5 (3 ml) UD INH SCH (19:56)
[2017-03-03] MEDS: Albuterol-Ipratrop 3 mg / 0.5 (3 ml) UD INH SCH ×4 (01:25→20:12)
[2017-03-03 08:30] LABS: BASO % 0.6 % (0.0-2.0); EOS # 0.3 K/uL (0.0-0.7); EOS % 5.4 % (0.0-4.0); HEMATOCRIT 21.1 % (35.0-51.0); LYMPH # 1.3 K/uL (1.0-4.3); LYMPH % 28.1 % (20.0-40.0); MEAN CELL VOLUME 99.4 fL (80.0-94.0); MEAN CORPUSCULAR HEMOGLOBIN 34.1 pg (27.0-31.0); MEAN CORPUSCULAR HGB CONC 34.3 g/dL (33.0-37.0); MEAN PLATELET VOLUME 8.8 fL (7.2-11.7); MONO # 0.4 K/uL (0.0-0.8); MONO % 9.1 % (0.0-10.0); RED CELL DISTRIBUTION WIDTH 20.6 % (11.5-14.5); WHITE BLOOD COUNT 4.7 K/uL (4.8-10.8)
[2017-03-03 08:46] LABS: POTASSIUM 4.3 mmol/L (3.6-5.2)
[2017-03-03 08:48] LABS: ALB/GLOB RATIO 0.5 (1.0-2.1); BILIRUBIN,TOTAL 2.5 mg/dL (0.2-1.3); TOTAL PROTEIN 6.6 g/dL (6.3-8.3)
[2017-03-03 08:49] LABS: CALCIUM 7.9 mg/dl (8.6-10.4); MAGNESIUM 1.6 mg/dL (1.6-2.3); PHOSPHOROUS 4.5 mg/dL (2.5-4.5)
--- NOTE | 2017-03-03 15:01 | CP.PCM.PN ---
Subjective - Date & Time of Evaluation Date of Evaluation: 03/03/17 Time of Evaluation: 09:05 - Subjective Subjective: PGY2 medicine progress note for Dr. Deng Patient seen and examined. Patient requesting paracentesis and states that is all he wants. Patient states he does not want to take lactulose, even after explaining to patient it is important to take to lower his ammonia level. Objective - Vital Signs/Intake and Output Vital Signs (last 24 hours): Temp Pulse Resp BP Pulse Ox 98 F 84 22 153/76 H 98 03/03/17 08:00 03/03/17 08:00 03/03/17 08:00 03/03/17 08:00 03/03/17 08:00 Intake and Output: 03/03/17 03/03/17 06:59 18:59 Intake Total 900 Output Total 900 Balance 0 - Medications Medications: Current Medications Albuterol/Ipratropium (Duoneb 3 Mg/0.5 Mg (3 Ml) Ud) 3 ml INH RQ6 [facility] Last Admin: 03/03/17 13:24 Dose: Not Given Lactulose (Enulose) 20 gm PO BID [facility] Last Admin: 03/03/17 09:53 Dose: Not Given Pneumococcal Polyvalent Vaccine (Pneumovax 23 Vaccine) 0.5 ml IM .ONCE ONE Stop: 03/04/17 10:01 Spironolactone (Aldactone) 12.5 mg PO DAILY [facility] Last Admin: 03/03/17 09:54 Dose: 12.5 mg Torsemide (Demadex) 10 mg PO BID [facility] Last Admin: 03/03/17 09:54 Dose: 10 mg - Labs Labs: 03/03/17 08:24 03/03/17 08:24 PT 19.2 SECONDS (9.7-12.2) H 03/02/17 00:58 INR 1.7 03/02/17 00:58 APTT 38 SECONDS (21-34) H 03/02/17 00:58 - Constitutional Appears: No Acute Distress - Head Exam Head Exam: ATRAUMATIC, NORMOCEPHALIC - Eye Exam Eye Exam: EOMI - ENT Exam ENT Exam: Mucous Membranes Moist - Respiratory Exam Respiratory Exam: Rhonchi. absent: Respiratory Distress - Cardiovascular Exam Cardiovascular Exam: +S1, +S2 - GI/Abdominal Exam GI & Abdominal Exam: Distended, Firm, Normal Bowel Sounds. absent: Guarding, Rigid, Tenderness Additional comments: dullness to percussion - Extremities Exam Extremities Exam: Pedal Edema (2+ b/l pitting) - Neurological Exam Neurological Exam: Alert, Awake - Skin Skin Exam: Warm Assessment and Plan - Assessment and Plan (Free Text) Assessment: Cirrhosis with Ascites 03/03/17: patient s/p paracentesis with 5L drained patient with past history alcohol use, also history hepatitis C that has not been treated continue aldactone 12.5mg daily, torsemide 10mg BID patient refusing lactulose MELD score 24, 19.6% 3 month mortality risk patient had paracentesis on 02/21/17 with removal of 5.5L straw colored fluid IR consult placed for Dr. Carroll for repeat paracentesis From prior admission in January 2017: * Abdominal US-->mild hepatomegaly, echogenic liver, nodular hepatic contour, gallbladder sludge, gallbladder wall thickening/pericholecytstic edema, no gallstones, negative sonographic Gibson's sign, splenomeglay, small left pleural effusion, ascites * Echocardiogram (02/21/17): left ventricle systolic function is normal; EF: 60- 65%, right ventricular systolic function is normal. Mitral regurgitation is mild. Mild tricupsid regurgitation; prior echo from [facility] [place] obtained systolic function intact * CT scan (02/20/17): hepatitc cirrhosis. entensive ascites. Old calcified hepatic and splenic granulomas, marked splenomegaly, small left pleural effusion : cirrhosis, ascites, calcified hepatic and splenic glaucomas, splenomegaly Renal failure seen by Dr. Mao last admission consult placed for Dr. Bland, covering Dr. Mao will order urine lytes, osm Most likely MPGN 2/2 to hep C patient refused renal biopsy last admission 24h urine 02/24/17: Urine creatinine 0.47, ur creatinine 24h 1.11, ur total prot 24h 1231, prot/ creat ratio 24h 1108, urine total prot 524, urine albumin 60.2, urine protein fractions pattern consistent with glomerular protienuria Anemia 03/03: patient received 1 unit PRBC. Hgb 7.2 likely due to chronic disease patient received multiple transfusions in past and has many antibodies\ Stool OB negative 02/21/17: B12 834 folate 12.1 Pancytopenia likely due to cirrhosis/ hepatitis C Syphilis patient received one dose 2.4 million Pencillin G IM X1 (1st dose) on 02/24/17 second dose given 03/02/17 Hepatitis C patient to follow up on discharge with GI for treatment options Meningioma Head CT (02/22/17): 2.4 cm lesion in the right inferior frontal region which appears to arise from the sphenoid ridge consistent with an extra-acial meningoma. Lesion is surrounded by vasogenic white matter edema with inferior frontal love extending posteriorly along the external capsule left basal ganglia. mild mass effect as described * Patient refuses neurosurgical evaluation/consult last admission Prophylaxis hold chemical anticoagulation due to thrombocytopenia hold GI prophylaxis due to side effect of thrombocytopenia Disposition patient with history non-compliance with medication and follow up All medical management as per Dr. Deng
[2017-03-03 16:55] VITALS: RESP 20
--- NOTE | 2017-03-03 18:14 | CP.PCM.CON ---
History of Present Illness - History of Present Illness History of Present Illness: pt is seen and examined , full consult is dictated #[id number] coveing Devonte Lindquist Past Patient History - Past Medical History & Family History Past Medical History?: Yes - Past Social History Smoking Status: Current Some Days Smoker - CARDIAC Hx Cardiac Disorders: No - PULMONARY Hx Respiratory Disorders: No - NEUROLOGICAL Hx Neurological Disorder: No - HEENT Hx HEENT Problems: No - RENAL Hx Chronic Kidney Disease: No - ENDOCRINE/METABOLIC Hx Endocrine Disorders: No - HEMATOLOGICAL/ONCOLOGICAL Hx Anemia: Yes - MUSCULOSKELETAL/RHEUMATOLOGICAL Hx Musculoskeletal Disorders: No Hx Falls: No - GASTROINTESTINAL Hx Gastrointestinal Disorders: Yes Other/Comment: ascites - GENITOURINARY/GYNECOLOGICAL Hx Genitourinary Disorders: No - PSYCHIATRIC Hx Psychophysiologic Disorder: Yes Hx Anxiety: Yes Hx Substance Use: No - SURGICAL HISTORY Hx Surgeries: No - ANESTHESIA Hx Anesthesia: Yes Hx Anesthesia Reactions: No Meds Allergies/Adverse Reactions: Allergies Allergy/AdvReac Type Severity Reaction Status Date / Time No Known Allergies Allergy Verified 09/23/16 23:47 - Medications Medications: Current Medications Albuterol/Ipratropium (Duoneb 3 Mg/0.5 Mg (3 Ml) Ud) 3 ml INH RQ6 [facility] Last Admin: 03/03/17 13:24 Dose: Not Given Lactulose (Enulose) 20 gm PO BID [facility] Last Admin: 03/03/17 17:36 Dose: Not Given Pneumococcal Polyvalent Vaccine (Pneumovax 23 Vaccine) 0.5 ml IM .ONCE ONE Stop: 03/04/17 10:01 Spironolactone (Aldactone) 12.5 mg PO DAILY [facility] Last Admin: 03/03/17 09:54 Dose: 12.5 mg Torsemide (Demadex) 10 mg PO BID [facility] Last Admin: 03/03/17 17:33 Dose: 10 mg Results - Vital Signs Recent Vital Signs: Last Vital Signs Temp 98.2 F 03/03/17 16:00 Pulse 79 03/03/17 16:00 Resp 20 03/03/17 16:00 BP 131/53 L 03/03/17 16:00 Pulse Ox 97 03/03/17 16:00 - Labs Result Diagrams: 03/03/17 08:24 03/03/17 08:24 Labs: Laboratory Results - last 24 hr 03/02/17 03/02/1717 19:40 20:17 20:17 WBC RBC Hgb Hct MCV MCH MCHC RDW Plt Count MPV Neut % (Auto) Lymph % (Auto) [place] % (Auto) Eos % (Auto) Baso % (Auto) Neut # Lymph # [place] # Eos # Baso # Sodium Potassium Chloride Carbon Dioxide Anion Gap BUN Creatinine Est GFR ( Amer) Est GFR (Non-Af Amer) Random Glucose Serum Osmolality 320 H Calcium Phosphorus Magnesium Total Bilirubin AST ALT Alkaline Phosphatase Ammonia Total Protein Albumin Globulin Albumin/Globulin Ratio Urine Osmolality 352 Ur Random Sodium 26 Stool Occult Blood Negative 03/03/17 03/03/17 03/03/17 08:24 08:24 08:24 WBC 4.7 L RBC 2.12 L Hgb 7.2 L Hct 21.1 L MCV 99.4 H MCH 34.1 H MCHC 34.3 RDW 20.6 H Plt Count 57 L MPV 8.8 Neut % (Auto) 56.8 Lymph % (Auto) 28.1 [place] % (Auto) 9.1 Eos % (Auto) 5.4 H Baso % (Auto) 0.6 Neut # 2.6 Lymph # 1.3 [place] # 0.4 Eos # 0.3 Baso # 0.0 Sodium 142 Potassium 4.3 Chloride 117 H Carbon Dioxide 17 L Anion Gap 12 BUN 51 H Creatinine 2.5 H Est GFR ( Amer) 33 Est GFR (Non-Af Amer) 27 Random Glucose 89 Serum Osmolality Calcium 7.9 L Phosphorus 4.5 Magnesium 1.6 Total Bilirubin 2.5 H AST 59 ALT 42 Alkaline Phosphatase 91 Ammonia 61 H D Total Protein 6.6 Albumin 2.3 L Globulin 4.3 H Albumin/Globulin Ratio 0.5 L Urine Osmolality Ur Random Sodium Stool Occult Blood
[2017-03-03 21:50] LABS: RBC URINE 36 /hpf (0-3); URINE BACTERIA RARE (<OCC); URINE BILIRUBIN NEGATIVE (NEGATIVE); URINE BLOOD 3+ (NEGATIVE); URINE COLOR Yellow (YELLOW); URINE GLUCOSE (UA) NORMAL (Normal); URINE KETONE NEGATIVE (NEGATIVE); URINE LEUKOCYTE ESTERASE NEG Leu/uL (Negative); URINE PROTEIN NEGATIVE (NEGATIVE); URINE UROBILINOGEN NORMAL mg/dL (0.2-1.0); WBC URINE 5 /hpf (0-5)
[2017-03-04] MEDS: Albuterol-Ipratrop 3 mg / 0.5 (3 ml) UD INH SCH ×4 (01:33→19:40)
--- NOTE | 2017-03-04 02:54 | HP ---
HISTORY OF PRESENT ILLNESS: A 57-year-old male, does complain of abdominal distention, weakness, fatigue, tiredness. The patient came to the hospital for admission. The patient has history of liver disease. The patient is noncompliant. PHYSICAL EXAMINATION: GENERAL: The patient is awake but confused. VITAL SIGNS: Temperature 98, pulse . HEENT: Within normal limits. NECK: Supple. CHEST: Symmetrical. HEART: Regular. ABDOMEN: Distended. EXTREMITIES: No edema. IMPRESSION: paracentesis. Char Deng MD
--- NOTE | 2017-03-04 07:43 | CON ---
RENAL CONSULTATION DATE: LOCATION: Patient is located in room 357, bed B. REQUESTED BY: Char Deng MD REASON FOR RENAL CONSULTATION: Increase BUN and creatinine, chronic kidney disease, cirrhosis of the liver. Patient is seen and examined for Dr. Varinder Mao. HISTORY OF PRESENT ILLNESS: Mr. Marte is 57 years old middle age male with past medical history significant for hepatitis C, syphilis, renal failure, meningioma, cirrhosis of the liver, and ascites, who is status post paracentesis about 5 liters recently was discharged on 02/24/2017 and did not followup for the treatment since he was discharged and admits not compliant with the medications. Now patient was admitted with abdominal pain and abdominal distention. Patient denied fever, chest pain, nausea, vomiting. Patient also complains of abdominal distention and increasing leg swelling. Patient is not in acute distress. Denies any dysuria or frequency. Denies any headache, dizziness. PAST MEDICAL HISTORY: Significant for hepatitis B, syphilis, chronic kidney disease, proteinuria, cirrhosis of the liver, ascites, anemia, thrombocytopenia. PAST SURGICAL HISTORY: Denies, status post paracentesis x1 during his last admission and status post paracentesis this morning about 5 liters. ALLERGIES: NO KNOWN DRUG ALLERGIES. SOCIAL HISTORY: Patient is a smoker, smokes about 5 6 cigarettes for longtime, ex alcohol abuse, and no drug abuse. PERSONAL HISTORY: He is single. No children. Both parents . Homeless as per the patient. CURRENT MEDICATIONS: Include as follows Aldactone 12.5 mg daily, Demadex 10 mg p.o. b.i.d. DuoNeb inhaler q. 6 hours, lactulose, and pneumococcal vaccine. REVIEW OF SYSTEMS: Significant for abdominal distention and leg swelling and also significant for anemia. All other review of systems are reviewed as per the HPI and are also negative. PHYSICAL EXAMINATION: GENERAL: Mr. Marte is 57 years old middle age male, moderately built, moderately nourished, not in distress. VITAL SIGNS: As follows; blood pressure 131/53, pulse 79, respirations 20, temperature is 98.2, and saturation 97%. Height 5 feet 6 inches and weight is 165 pounds. HEENT: Pupils are normal, reactive to light and accommodation. Conjunctivae slightly pale. Sclerae is slightly icteric. Tongue is moist. Trachea is midline. LUNGS: Symmetry on both sides. Bilateral breath sounds present. Clear on auscultation. CARDIOVASCULAR: [place] at the fifth intercostal space, midclavicular line. S1 and S2 audible. No murmur. No gallop. ABDOMEN: Slightly protuberant, dullness in both flanks. No hepatosplenomegaly. No abdominal bruit. CENTRAL NERVOUS SYSTEM: The patient is alert, awake, oriented x3. Nonfocal neurologic examination. Cranial nerves II through XII grossly intact. Sensory and motor system is within normal limits. EXTREMITIES: No cyanosis, no clubbing. Patient has 1 to 2+ edema in both lower extremities. LABORATORY DATA: Include as follows, as of 03/03/2017; WBC 4.7, hemoglobin 7.2, hematocrit is 21.1, MCV 99 and platelets 57. Sodium 142, potassium 4.3, chloride 117, CO2 of 17, BUN 51, creatinine 2.5, glucose 89, calcium 7.9, phosphorus 4.5, magnesium is 1.6, total bilirubin is 2.5, AST 59, ALT 42, alkaline phosphatase 91. Ammonia is 61, total protein 6.6, albumin is 2.3. Urinalysis, yellow, clear, pH of 5, specific gravity 1.008. Protein negative. Glucose are normal. Ketones negative. Blood 3+ and nitrites negative. Bilirubin negative. Urobilinogen is normal, leukocyte esterase is negative, wbc 5, rbc 36, and bacteria is rare. As of 03/02/2017, urine osmolality 352, urine sodium is 206, and stool for occult blood is negative. His other laboratory from the previous admission, RPR is reactive. titers 1:4 and hepatitis C antibody is negative. Hepatitis B surface antigen negative. Hepatitis B core antibody is negative. Hepatitis C antibody is [place] [id number] and HIV was also negative from the last admission and other laboratory data serum immunofixation faint band visible with oral polyclonal pattern and serum cryoglobulins levels were negative and rheumatoid factor IgG is less than 5 and IgM is 8 and ABIGAIL profile is negative and compliment level C3 is less than 40 and C4 is 10 and [place] lambda ratio is about 2.1. ASSESSMENT: In summary, Mr. Marte is 57 years old middle age male with history of hepatitis C, alcohol abuse, cirrhosis of the liver with microscopic hematuria and elevated BUN and creatinine with proteinuria, 24 hour of urine about 1.1 gram from the last admission, was admitted with abdominal distention. 1. Renal failure, chronic kidney disease stage IV, etiology is not clear cannot rule out underlying chronic glomerulonephritis such as membranoproliferative glomerulonephritis secondary to hepatitis C. 2. Cirrhosis of the liver. 3. Anemia. 4. Thrombocytopenia. PLAN: Patient underwent paracentesis this morning and continue diuretics, spironolactone and Demadex and also restrictive fluids to 1 liters per day. The patient is noncompliant with medications and patient is not a suitable candidate for the kidney biopsy at this time. Repeat C3 and C4 again and repeat cryoglobulin levels also. Overall prognosis is guarded. Thank you for allowing me to participate in our patient's care. Patient seen and examined and covering Dr. Mao. Cecile Bland MD MTDGregory
[2017-03-04 07:48] LABS: BASO % 0.4 % (0.0-2.0); EOS # 0.2 K/uL (0.0-0.7); EOS % 4.3 % (0.0-4.0); HEMATOCRIT 21.1 % (35.0-51.0); LYMPH # 1.1 K/uL (1.0-4.3); LYMPH % 26.4 % (20.0-40.0); MEAN CELL VOLUME 100.8 fL (80.0-94.0); MEAN CORPUSCULAR HEMOGLOBIN 33.6 pg (27.0-31.0); MEAN CORPUSCULAR HGB CONC 33.3 g/dL (33.0-37.0); MEAN PLATELET VOLUME 9.2 fL (7.2-11.7); MONO # 0.4 K/uL (0.0-0.8); MONO % 9.3 % (0.0-10.0); NRBC % 0.1 % (0.0-2.0); RED CELL DISTRIBUTION WIDTH 19.8 % (11.5-14.5); WHITE BLOOD COUNT 4.3 K/uL (4.8-10.8)
[2017-03-04 08:02] LABS: BILIRUBIN,TOTAL 2.4 mg/dL (0.2-1.3); CALCIUM 7.8 mg/dl (8.6-10.4); POTASSIUM 4.2 mmol/L (3.6-5.2); TOTAL PROTEIN 6.1 g/dL (6.3-8.3)
[2017-03-04 08:03] LABS: ALB/GLOB RATIO 0.5 (1.0-2.1)
[2017-03-04 08:47] LABS: CHLORIDE URINE 40 mmol/L (32-290)
[2017-03-04] MEDS ORDERED: Pneumococcal 23-Valent Vaccine IM ONE (10:00)
[2017-03-04] MEDS ORDERED: EPOETIN ALFA 10,000 UNIT/ML ML SC ONE (10:32)
--- NOTE | 2017-03-04 10:33 | CP.PCM.PN ---
Subjective - Date & Time of Evaluation Date of Evaluation: 03/04/17 Time of Evaluation: 10:33 - Subjective Subjective: PT IS SEEN AND EXAMINED, FOLLOW UP CONSULT IS DICTATED #[id number] Objective - Vital Signs/Intake and Output Vital Signs (last 24 hours): Temp Pulse Resp BP Pulse Ox 98.4 F 81 20 158/73 H 100 03/04/17 08:52 03/04/17 08:52 03/04/17 08:52 03/04/17 08:52 03/04/17 08:52 - Medications Medications: Current Medications Albuterol/Ipratropium (Duoneb 3 Mg/0.5 Mg (3 Ml) Ud) 3 ml INH RQ6 [facility] Last Admin: 03/04/17 07:20 Dose: 3 ml Folic Acid 1 mg/ Sodium (Chloride) 100.2 mls @ 60 mls/hr IV DAILY [facility] Lactulose (Enulose) 20 gm PO BID [facility] Last Admin: 03/03/17 17:36 Dose: Not Given Multivitamins (Hexavitamin) 1 tab PO DAILY [facility] Spironolactone (Aldactone) 12.5 mg PO DAILY [facility] Last Admin: 03/03/17 09:54 Dose: 12.5 mg Thiamine HCl (Vitamin B1 Tab) 100 mg PO DAILY [facility] Torsemide (Demadex) 10 mg PO BID [facility] Last Admin: 03/03/17 17:33 Dose: 10 mg - Labs Labs: 03/04/17 07:37 03/04/17 07:37 PT 19.2 SECONDS (9.7-12.2) H 03/02/17 00:58 INR 1.7 03/02/17 00:58 APTT 38 SECONDS (21-34) H 03/02/17 00:58
[2017-03-04] MEDS: Multiple Vitamins Tab PO SCH (10:57)
[2017-03-05] MEDS: Albuterol-Ipratrop 3 mg / 0.5 (3 ml) UD INH SCH ×4 (01:35→21:06)
[2017-03-05] MEDS: Multiple Vitamins Tab PO SCH (10:57)
[2017-03-05 11:33] LABS: BASO % 0.5 % (0.0-2.0); EOS # 0.2 K/uL (0.0-0.7); HEMATOCRIT 29.4 % (35.0-51.0); LYMPH # 1.1 K/uL (1.0-4.3); LYMPH % 20.8 % (20.0-40.0); MEAN CELL VOLUME 98.4 fL (80.0-94.0); MEAN CORPUSCULAR HEMOGLOBIN 33.1 pg (27.0-31.0); MEAN CORPUSCULAR HGB CONC 33.6 g/dL (33.0-37.0); MEAN PLATELET VOLUME 8.7 fL (7.2-11.7); MONO # 0.6 K/uL (0.0-0.8); MONO % 11.3 % (0.0-10.0); RED CELL DISTRIBUTION WIDTH 19.9 % (11.5-14.5); WHITE BLOOD COUNT 5.3 K/uL (4.8-10.8)
[2017-03-05 11:52] LABS: ALB/GLOB RATIO 0.5 (1.0-2.1); BILIRUBIN,TOTAL 3.8 mg/dL (0.2-1.3); CALCIUM 8.1 mg/dl (8.6-10.4); POTASSIUM 4.3 mmol/L (3.6-5.2); TOTAL PROTEIN 6.6 g/dL (6.3-8.3)
--- NOTE | 2017-03-05 12:37 | CP.PCM.PN ---
Subjective - Date & Time of Evaluation Date of Evaluation: 03/05/17 Time of Evaluation: 12:36 - Subjective Subjective: pt is seen and examined, raffaele jha consult is dictated #[id number] Objective - Vital Signs/Intake and Output Vital Signs (last 24 hours): Temp Pulse Resp BP Pulse Ox 98.1 F 84 20 160/82 H 97 03/05/17 08:00 03/05/17 08:00 03/05/17 08:00 03/05/17 08:00 03/05/17 08:00 Intake and Output: 03/05/17 03/05/17 06:59 18:59 Intake Total 1480 Output Total 650 Balance 830 - Medications Medications: Current Medications Albuterol/Ipratropium (Duoneb 3 Mg/0.5 Mg (3 Ml) Ud) 3 ml INH RQ6 [facility] Last Admin: 03/05/17 07:40 Dose: 3 ml Folic Acid 1 mg/ Sodium (Chloride) 100.2 mls @ 60 mls/hr IV DAILY [facility] Last Admin: 03/05/17 10:58 Dose: 60 mls/hr Lactulose (Enulose) 20 gm PO BID [facility] Last Admin: 03/05/17 10:57 Dose: Not Given Multivitamins (Hexavitamin) 1 tab PO DAILY [facility] Last Admin: 03/05/17 10:57 Dose: 1 tab Spironolactone (Aldactone) 12.5 mg PO DAILY [facility] Last Admin: 03/05/17 10:57 Dose: 12.5 mg Thiamine HCl (Vitamin B1 Tab) 100 mg PO DAILY [facility] Last Admin: 03/05/17 10:57 Dose: 100 mg Torsemide (Demadex) 10 mg PO BID [facility] Last Admin: 03/05/17 10:58 Dose: 10 mg - Labs Labs: 03/05/17 11:27 03/05/17 11:27 PT 19.2 SECONDS (9.7-12.2) H 03/02/17 00:58 INR 1.7 03/02/17 00:58 APTT 38 SECONDS (21-34) H 03/02/17 00:58
[2017-03-06 00:31] VITALS: O2SAT 98
[2017-03-06] MEDS: Albuterol-Ipratrop 3 mg / 0.5 (3 ml) UD INH SCH ×3 (01:04→13:09)
[2017-03-06 07:46] LABS: BASO % 0.4 % (0.0-2.0); EOS # 0.3 K/uL (0.0-0.7); EOS % 4.6 % (0.0-4.0); HEMATOCRIT 27.9 % (35.0-51.0); LYMPH # 1.4 K/uL (1.0-4.3); LYMPH % 23.7 % (20.0-40.0); MEAN CELL VOLUME 100.9 fL (80.0-94.0); MEAN CORPUSCULAR HEMOGLOBIN 33.5 pg (27.0-31.0); MEAN CORPUSCULAR HGB CONC 33.2 g/dL (33.0-37.0); MEAN PLATELET VOLUME 9.9 fL (7.2-11.7); MONO # 0.6 K/uL (0.0-0.8); MONO % 9.8 % (0.0-10.0); NRBC % 0.1 % (0.0-2.0); RED CELL DISTRIBUTION WIDTH 19.8 % (11.5-14.5); WHITE BLOOD COUNT 6.1 K/uL (4.8-10.8)
[2017-03-06 07:54] LABS: POTASSIUM 4.7 mmol/L (3.6-5.2)
[2017-03-06 07:56] LABS: ALB/GLOB RATIO 0.5 (1.0-2.1); BILIRUBIN,TOTAL 2.4 mg/dL (0.2-1.3); TOTAL PROTEIN 6.6 g/dL (6.3-8.3)
[2017-03-06 07:57] LABS: CALCIUM 7.7 mg/dl (8.6-10.4)
[2017-03-06] MEDS: Multiple Vitamins Tab PO SCH (10:08)
--- NOTE | 2017-03-06 10:14 | CP.PCM.PN ---
Subjective - Date & Time of Evaluation Date of Evaluation: 03/06/17 Time of Evaluation: 10:10 - Subjective Subjective: PGY-[address] Mao's Nephrology service: Pt seen and examined at bedside. Pt alert and oriented x 3, though mentation slowed. Pt still refusing lactulose despite being warned of hyperammonemia dangers. He denies abdominal pain, but states "fluid building up again." He states his leg and testicle edema have improved since admission. He denies cheating on his diet, and following strictly his fluid restriction while in the hospital. He reports urinating "a lot" but denies james blood, dysuria. Objective - Vital Signs/Intake and Output Vital Signs (last 24 hours): Temp Pulse Resp BP Pulse Ox 98.5 F 78 20 126/56 L 98 03/06/17 00:30 03/06/17 00:30 03/06/17 00:30 03/06/17 00:30 03/06/17 00:30 Intake and Output: 03/06/17 03/06/17 06:59 18:59 Intake Total 440 Output Total 550 Balance -110 - Medications Medications: Current Medications Albuterol/Ipratropium (Duoneb 3 Mg/0.5 Mg (3 Ml) Ud) 3 ml INH RQ6 [facility] Last Admin: 03/06/17 07:58 Dose: 3 ml Lactulose (Enulose) 20 gm PO BID [facility] Last Admin: 03/06/17 10:09 Dose: Not Given Multivitamins (Hexavitamin) 1 tab PO DAILY [facility] Last Admin: 03/06/17 10:08 Dose: 1 tab Propranolol HCl (Inderal) 10 mg PO TID [facility] Last Admin: 03/06/17 10:08 Dose: 10 mg Spironolactone (Aldactone) 12.5 mg PO DAILY [facility] Last Admin: 03/06/17 10:08 Dose: 12.5 mg Thiamine HCl (Vitamin B1 Tab) 100 mg PO DAILY [facility] Last Admin: 03/06/17 10:08 Dose: 100 mg Torsemide (Demadex) 10 mg PO BID [facility] Last Admin: 03/06/17 10:08 Dose: 10 mg - Labs Labs: 03/06/17 07:04 03/06/17 07:04 PT 19.2 SECONDS (9.7-12.2) H 03/02/17 00:58 INR 1.7 03/02/17 00:58 APTT 38 SECONDS (21-34) H 03/02/17 00:58 - Constitutional Appears: No Acute Distress - Head Exam Head Exam: NORMAL INSPECTION - Eye Exam Eye Exam: EOMI, Scleral icterus. absent: Normal appearance - ENT Exam ENT Exam: Mucous Membranes Moist - Neck Exam Neck Exam: Normal Inspection - Respiratory Exam Respiratory Exam: Rales (bases), Wheezes (upper lung christine). absent: Clear to Ausculation Bilateral - Cardiovascular Exam Cardiovascular Exam: REGULAR RHYTHM, +S1, +S2. absent: Murmur - GI/Abdominal Exam GI & Abdominal Exam: Distended, Firm - Exam Exam: Scrotal Swelling (diminshed from admission) - Extremities Exam Extremities Exam: Pedal Edema (1-2+ up to knee). absent: Calf Tenderness - Neurological Exam Neurological Exam: Alert, Awake, Oriented x3 Additional comments: mentation slowed - Psychiatric Exam Psychiatric exam: Normal Affect Assessment and Plan - Assessment and Plan (Free Text) Assessment: 57 year old male PMHx of hepatitis C, CKD stage IV, presented 03/01/17 for abdominal pain, increasing ascites. Plan: CKD, Stage III BUN/Cr 41/2.1, improved from admission 60/2.7 - believed caused by MPGN secondary to Hep C - f/u C3,C4 levels, cryoglobulin levls - pt refusing renal biopsy 24h urine 02/24/17: Urine creatinine 0.47, ur creatinine 24h 1.11, ur total prot 24h 1231, prot/ creat ratio 24h 1108, urine total prot 524, urine albumin 60.2, urine protein fractions pattern consistent with glomerular protienuria Cirrhosis of Liver - pt with Hx of untreated Hepatitis C - pt refusing lactulose Aldactone 12.5mg daily Torsemide 10mg BID patient refusing lactulose Anemia of Chronic Disease - pt has received unit of PRBCs on this admission Pancytopenia - secondary to history of EtOh abuse, cirrhosis, untreated Hep C Discussed case with attending Dr. Mayco Mistry PGY-1
--- NOTE | 2017-03-06 11:02 | PN ---
FOLLOWUP RENAL CONSULTATION DATE: LOCATION: The patient is located in room 357, bed B. REQUESTED BY: Char Deng MD REASON FOR FOLLOWUP: Renal failure. HISTORY OF PRESENT ILLNESS: Mr. Marte is 57 years old elderly male with history of EtOH abuse, cirrhosis of the liver, chronic hepatitis C, status post paracentesis, anemia and thrombocytopenia, who was admitted with abdominal distension and noncompliance with the medications and the patient underwent paracentesis yesterday. The patient is scheduled for transfusion this morning. The patient denies any complaints. No abdominal pain. No shortness of breath. No nausea, vomiting, or diarrhea. PHYSICAL EXAMINATION: GENERAL: Mr. Marte is 57 years old middle age male, moderately built, moderately nourished, not in distress. VITAL SIGNS: As follows blood pressure this morning 158/73, pulse 81, respirations 20, temperature 98.4 and saturation 100%. Height 5 feet and 6 inches and weight is 165 pounds. HEENT: Pupils are normal, reactive to light and accommodation. Conjunctivae pale. Sclerae slightly icteric. Tongue is moist. Trachea is midline. CVS: [place] at the fifth intercostal space, midclavicular line, S1 and S2 audible. No murmur or gallop. LUNGS: Symmetric on both sides. Bilateral breath sounds present. Clear to auscultation. ABDOMEN: Distended, soft and dullness on both flanks. No guarding. No rigidity. No hepatosplenomegaly. EXTREMITIES: No cyanosis. No clubbing. The patient has 1+ edema in both lower extremities. FIELD TRAINER: The patient is alert, awake, oriented x3. Nonfocal neurologic examination. Cranial nerves II through XII grossly intact. Sensory system and motor system grossly within normal limits. CURRENT MEDICATIONS: Include as follows; spironolactone 12.5 mg p.o. daily, Demadex 10 mg p.o. b.i.d., DuoNeb inhaler, lactulose 20 g p.o. b.i.d., folic acid 1 mg IV daily, vitamin 1 tablet daily, and thiamine 100 mg p.o. daily. LABORATORY DATA: Include as follows as of 03/04/2017; WBC 4.3, hemoglobin 7, hematocrit 21.1, MCV 100.8. Sodium 141, potassium 4.2, chloride 112, CO2 of 19, anion gap is 10, BUN 44, creatinine 2.2, glucose 97, calcium 7.8, total bili 2.4, AST 54, ALT 42, alkaline phosphatase 79, ammonia 48, total protein 6.1, albumin is 1.9 and globulin is 4.2. Urine tox screen is negative. In summary, Mr. Marte is 57 years old middle aged male with history of EtOH abuse, cirrhosis of the liver, hepatitis C, ascites, renal failure, hematuria 3+ blood and RBC about 36. 1. Renal failure, most likely chronic kidney disease, rule out chronic glomerulonephritis secondary to hepatitis C such as membranoproliferative glomerulonephritis. 2. Anemia. 3. Thrombocytopenia, most likely secondary to cirrhosis of the liver and splenic sequestration. 4. Ascites, status post paracentesis. The patient is schedule for transfusion today and continue gentle diuresis, continue spironolactone and Demadex and restrict fluids to 1 L per day. The patient is a poor candidate for kidney biopsy at this time due to thrombocytopenia and also noncompliance. Thank you for allowing me to participate in our patient's care. The patient was seen and examined for Dr. Mao. Cecile Bland MD
--- NOTE | 2017-03-06 11:06 | PN ---
DATE: FOLLOWUP RENAL CONSULTATION LOCATION: The patient is located in room 357, bed B. REQUESTED BY: Char Deng MD REASON FOR FOLLOWUP: Chronic kidney disease and for further evaluation. SUBJECTIVE: Mr. Marte is 57 years old middle-aged male with a history of ETOH abuse, cirrhosis of the liver, chronic hepatitis C, renal failure, now was admitted with abdominal distention, status post paracentesis last week, admitted with abdominal distention, noncompliant with the medication and patient underwent repeat paracentesis two days ago. The patient is feeling better, not in acute distress. He is status post transfusion of two units of packed RBC yesterday. No chest pain. No palpitation. No fever. No cough. No abdominal pain. No nausea, vomiting or diarrhea. PHYSICAL EXAMINATION: VITAL SIGNS: As follows: Blood pressure 160/82, pulse 84, respirations 20, temperature is 98.1, and saturation 97%. GENERAL: Mr. Marte is 57 years old middle-aged male, moderately built, moderately nourished, not in acute distress. HEENT: Pupils are normal, reactive to light and accommodation. Conjunctivae pink. Sclerae anicteric. Tongue is moist. Trachea is midline. LUNGS: Symmetric on both sides. Bilateral breath sounds present. Clear on auscultation. CARDIOVASCULAR: [place] at the fifth intercostal space, midclavicular line. S1 and S2 audible. No murmur. No gallop. ABDOMEN: Distended, dullness in both flanks. No hepatosplenomegaly. CENTRAL NERVOUS SYSTEM: The patient is alert, awake, oriented x3. Nonfocal neurologic examination. Cranial nerves II through XII grossly intact. Sensory and motor system is within normal limits. EXTREMITIES: No cyanosis, no clubbing. 1+ edema in both lower extremities. CURRENT MEDICATIONS: Include as follows, spironolactone 12.5 mg p.o. daily, Demadex 10 mg p.o. b.i.d., DuoNeb inhaler 3 mL q. 6 hours, lactulose 20 g p.o. b.i.d., folic acid 1 mg IV daily, multivitamin one tablet p.o. daily and thiamine 100 mg p.o. daily. CURRENT LABORATORY DATA: Include as follows: As of 03/05/2017, WBC 5.3, hemoglobin 9.9, hematocrit is 29.4 and platelets 54. Sodium 140, potassium 4.3, chloride 111, CO2 of 22, BUN 41, creatinine 2.1, glucose 99, calcium 8.1. Total bilirubin is 3.8, AST 61, ALT 43, alkaline phosphatase 76, total protein 6.6, albumin is 2.2, 204.4. Urine tox screen is negative. ASSESSMENT: In summary, Mr. Marte is 57 years old middle-aged male with history of ETOH abuse, cirrhosis of the liver, hepatitis C, increased BUN and creatinine and hematuria. 1. Renal: Chronic kidney disease III, most likely secondary to chronic glomerulonephritis, cannot rule out secondary to membranoproliferative glomerulonephritis. 2. Anemia. 3. Thrombocytopenia, most likely secondary to cirrhosis of the liver with splenic sequestration. 4. Hypertension. PLAN: Add 10 mg t.i.d. and consider to increase Aldactone to 12.5 mg p.o. b.i.d. as tolerated and restrict fluid to one liter per day. We will change folic acid to p.o. Thank you for allowing me to participate in our patient's care. Patient is seen and examined for Dr. Mao. Cecile Bland MD
--- NOTE | 2017-03-06 12:02 | US ---
Date of Procedure: 03/03/2017 PROCEDURE: Ultrasound-guided paracentesis, CPT 00195 Medications: 7 cc 1% Lidocaine HISTORY: Ascites, abdominal pain, cirrhosis TECHNIQUE: Following informed consent , the patient was placed supine on the stretcher and the site was marked. A limited abdominal ultrasound was performed that showed a large amount of intra-abdominal fluid. Procedural time out was called and the Pt's abdomen was marked and prepped and draped in the usual sterile fashion. Ultrasound-guided large volume paracentesis performed. A total of 5 liters of straw colored fluid was removed without complication. IMPRESSION: Ultrasound-guided large volume paracentesis.
--- NOTE | 2017-03-06 16:43 | CP.PCM.PN ---
Subjective - Date & Time of Evaluation Date of Evaluation: 03/06/17 Time of Evaluation: 09:00 - Subjective Subjective: PGY2 medicine progress note for Dr. Deng Patient seen and examined. No acute overnight events. He reports feeling better since having 5L removed via paracentesis. Patient continues to refuse lactulose , stating that he already had several BMs. I explained to him that he will require continuous Lactulose even as an outpatient, due to his elevated ammonia levels. He understands, stating he will take it when he is discharged. ---- Patient is stable for discharge per Dr. Sarita Deng. Patient should resume all medications as outlined in this document. Additionally, patient should take the new medications listed below (scripts provided). 1. Please make an appointment and follow up with your Primary Doctor, Dr. Deng within one week of discharge. 2. Please make an appointment and follow up with your Casting Assistant to further work up and treat your Hepatitis C. 3. Please speak to your PMD about your prior Head CT (02/22/17) showing a 2.4 cm lesion in the right inferior frontal region which appears to arise from the sphenoid ridge consistent with an extra-acial meningoma. You will likely be referred for Neurosurgical evaluation. Patient should return to ED immediately if symptoms return or worsen. Instructions discussed with patient who understood and agreed. Newly prescribed medications: lactulose 20gm po BID #60 propranolol 10mg PO TID #90 aldactone 12.5mg PO qd #30 Torsemide 10mg PO BID #60 Objective - Vital Signs/Intake and Output Vital Signs (last 24 hours): Temp Pulse Resp BP Pulse Ox 98 F 73 20 158/65 H 98 03/06/17 10:28 03/06/17 10:28 03/06/17 10:28 03/06/17 10:28 03/06/17 10:28 Intake and Output: 03/06/17 03/06/17 06:59 18:59 Intake Total 440 Output Total 550 Balance -110 - Medications Medications: Current Medications Albuterol/Ipratropium (Duoneb 3 Mg/0.5 Mg (3 Ml) Ud) 3 ml INH RQ6 [facility] Last Admin: 03/06/17 13:09 Dose: 3 ml Lactulose (Enulose) 20 gm PO BID [facility] Last Admin: 03/06/17 10:09 Dose: Not Given Multivitamins (Hexavitamin) 1 tab PO DAILY [facility] Last Admin: 03/06/17 10:08 Dose: 1 tab Propranolol HCl (Inderal) 10 mg PO TID [facility] Last Admin: 03/06/17 10:08 Dose: 10 mg Spironolactone (Aldactone) 12.5 mg PO DAILY [facility] Last Admin: 03/06/17 10:08 Dose: 12.5 mg Thiamine HCl (Vitamin B1 Tab) 100 mg PO DAILY [facility] Last Admin: 03/06/17 10:08 Dose: 100 mg Torsemide (Demadex) 10 mg PO BID [facility] Last Admin: 03/06/17 10:08 Dose: 10 mg - Labs Labs: 03/06/17 07:04 03/06/17 07:04 PT 19.2 SECONDS (9.7-12.2) H 03/02/17 00:58 INR 1.7 03/02/17 00:58 APTT 38 SECONDS (21-34) H 03/02/17 00:58 - Additional Findings Additional findings: - Constitutional Appears: No Acute Distress - Head Exam Head Exam: ATRAUMATIC, NORMOCEPHALIC - Eye Exam Eye Exam: EOMI - ENT Exam ENT Exam: Mucous Membranes Moist - Respiratory Exam Respiratory Exam: Rhonchi (mild, diffuse). absent: Respiratory Distress, Wheezes. - Cardiovascular Exam Cardiovascular Exam: Regular Rate, +S1, +S2 - GI/Abdominal Exam GI & Abdominal Exam: Distended, Firm, Normal Bowel Sounds. absent: Guarding, Rigid, Tenderness Additional comments: dullness to percussion - Extremities Exam Extremities Exam: Pedal Edema (2+ b/l pitting) - Neurological Exam Neurological Exam: Alert, Awake, Oriented x3 - Skin Skin Exam: Warm, Dry, Intact Assessment and Plan - Assessment and Plan (Free Text) Assessment: Cirrhosis with Ascites 03/06: patient reports feeling better s/p paracentesis. Will require daily Lactulose on discharge. 03/03/17: patient s/p paracentesis with 5L drained patient with past history alcohol use, also history hepatitis C that has not been treated continue aldactone 12.5mg daily, torsemide 10mg BID patient refusing lactulose MELD score 24, 19.6% 3 month mortality risk patient had paracentesis on 02/21/17 with removal of 5.5L straw colored fluid IR consult placed for Dr. Carroll for repeat paracentesis From prior admission in January 2017: * Abdominal US-->mild hepatomegaly, echogenic liver, nodular hepatic contour, gallbladder sludge, gallbladder wall thickening/pericholecytstic edema, no gallstones, negative sonographic Gibson's sign, splenomeglay, small left pleural effusion, ascites * Echocardiogram (02/21/17): left ventricle systolic function is normal; EF: 60- 65%, right ventricular systolic function is normal. Mitral regurgitation is mild. Mild tricupsid regurgitation; prior echo from [facility] obtained systolic function intact * CT scan (02/20/17): hepatitc cirrhosis. entensive ascites. Old calcified hepatic and splenic granulomas, marked splenomegaly, small left pleural effusion : cirrhosis, ascites, calcified hepatic and splenic glaucomas, splenomegaly CKD, Stage IV seen by Dr. Mao last admission consult placed for Dr. Bland, covering Dr. 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 Hgb 7.2 likely due to chronic disease patient received multiple transfusions in past and has many antibodies\ Stool OB negative 02/21/17: B12 834 folate 12.1 Pancytopenia likely due to cirrhosis/ hepatitis C Syphilis patient received one dose 2.4 million Pencillin G IM X1 (1st dose) on 02/24/17 second dose given 03/02/17 Hepatitis C patient to follow up on discharge with GI for treatment options Meningioma Head CT (02/22/17): 2.4 cm lesion in the right inferior frontal region which appears to arise from the sphenoid ridge consistent with an extra-acial meningoma. Lesion is surrounded by vasogenic white matter edema with inferior frontal love extending posteriorly along the external capsule left basal ganglia. mild mass effect as described * Patient refuses neurosurgical evaluation/consult last admission Prophylaxis hold chemical anticoagulation due to thrombocytopenia hold GI prophylaxis due to side effect of thrombocytopenia Disposition patient with history non-compliance with medication and follow up All medical management as per Dr. Deng
[2017-03-06 16:47] VITALS: BP 131/63; PULSE 72; TEMP 98.1
== END 2017-03-06 17:40 | disposition home or self-care (01) | DRG 202 ==
LOC: C.ER 23:26 → C.3T 03-02 00:56
PROVIDERS: ADMIT Internal Medicine Pulmonary Disease; ATTEND Internal Medicine Pulmonary Disease
PROC: 0W9G3ZZ Drainage of Peritoneal Cavity, Percutaneous Approach (ICD-10-PCS; principal; 2017-03-03)
PROC: BW40ZZZ Ultrasonography of Abdomen (ICD-10-PCS; 2017-03-03)
PROC: 30233N1 Transfusion of Nonautologous Red Blood Cells into Peripheral Vein, Percutaneous Approach (ICD-10-PCS; 2017-03-03)
DX: K70.31 Alcoholic cirrhosis of liver with ascites (principal); D61.818 Other pancytopenia; N18.4 Chronic kidney disease, stage 4 (severe); D69.59 Other secondary thrombocytopenia; B18.2 Chronic viral hepatitis C; A53.9 Syphilis, unspecified; F10.21 Alcohol dependence, in remission; I12.9 Hypertensive chronic kidney disease with stage 1 through stage 4 chronic kidney disease, or unspecified chronic kidney disease; I34.0 Nonrheumatic mitral (valve) insufficiency; N44.8 Other noninflammatory disorders of the testis; D32.9 Benign neoplasm of meninges, unspecified; Z59.0 Homelessness; Z91.14 Patient's other noncompliance with medication regimen

== ENCOUNTER 2017-03-28 22:38 | Inpatient (IN) | payer MEDICAID ==
[2017-03-28 23:32] LABS: RBC URINE 48 /hpf (0-3); URINE BILIRUBIN NEGATIVE (NEGATIVE); URINE BLOOD 3+ (NEGATIVE); URINE COLOR Yellow (YELLOW); URINE GLUCOSE (UA) NORMAL (Normal); URINE KETONE NEGATIVE (NEGATIVE); URINE LEUKOCYTE ESTERASE 1+ Leu/uL (Negative); URINE PROTEIN NEGATIVE (NEGATIVE); URINE UROBILINOGEN NORMAL mg/dL (0.2-1.0); WBC URINE 15 /hpf (0-5)
[2017-03-29 00:27] LABS: BASO # 0.1 K/uL (0.0-0.2); BASO % 1.1 % (0.0-2.0); EOS # 0.3 K/uL (0.0-0.7); EOS % 3.1 % (0.0-4.0); HEMATOCRIT 27.4 % (35.0-51.0); LYMPH % 19.5 % (20.0-40.0); MEAN CELL VOLUME 101.3 fL (80.0-94.0); MEAN CORPUSCULAR HEMOGLOBIN 35.2 pg (27.0-31.0); MEAN CORPUSCULAR HGB CONC 34.8 g/dL (33.0-37.0); MEAN PLATELET VOLUME 9.3 fL (7.2-11.7); MONO % 9.6 % (0.0-10.0); NRBC % 0.2 % (0.0-2.0); WHITE BLOOD COUNT 10.1 K/uL (4.8-10.8)
[2017-03-29 00:46] LABS: INR 1.7
[2017-03-29 00:49] LABS: ALB/GLOB RATIO 0.6 (1.0-2.1); BILIRUBIN,TOTAL 2.9 mg/dL (0.2-1.3); CALCIUM 8.2 mg/dl (8.6-10.4); TOTAL PROTEIN 7.3 g/dL (6.3-8.3)
--- NOTE | 2017-03-29 01:34 | C.PDOC ---
History Of Present Illness 57 year old male with history of alcoholism presents to the ED with complaints of abdominal pain. Patient notes feelings of nervousness and denies nausea, vomiting, diarrhea, fever, or chills. Chief Complaint (Nursing): Abdominal Pain History Per: Patient History/Exam Limitations: no limitations Onset/Duration Of Symptoms: Hrs Current Symptoms Are (Timing): Still Present Location Of Pain/Discomfort: Diffuse Radiation Of Pain To:: None Quality Of Discomfort: "Pain" Associated Symptoms: denies: Fever, Chills, Nausea, Vomiting, Diarrhea Exacerbating Factors: None Alleviating Factors: None Recent travel outside of the [place]: No Past Medical History Reviewed: Historical Data, Nursing Documentation, Vital Signs Vital Signs: Last Vital Signs Temp 98.1 F 03/28/17 22:52 Pulse 73 03/29/17 00:59 Resp 20 03/29/17 00:59 BP 157/88 H 03/28/17 22:52 Pulse Ox 98 03/29/17 03:20 - Medical History PMH: Anemia, Anxiety, HTN - [facility] Procedures DRAINAGE OF PERITONEAL CAVITY, PERCUTANEOUS APPROACH (03/02/17) TRANSFUSE NONAUT RED BLOOD CELLS IN PERIPH VEIN, OPEN (02/19/17) TRANSFUSE NONAUT RED BLOOD CELLS IN PERIPH VEIN, PERC (03/02/17) ULTRASONOGRAPHY OF ABDOMEN (03/02/17) Family History: States: Unknown Family Hx - Social History Hx Alcohol Use: No Hx Substance Use: No - Immunization History Hx Tetanus Toxoid Vaccination: No Hx Influenza Vaccination: No Hx Pneumococcal Vaccination: No Review Of Systems Constitutional: Negative for: Fever, Chills Cardiovascular: Negative for: Chest Pain, Palpitations Respiratory: Negative for: Cough, Shortness of Breath Gastrointestinal: Positive for: Abdominal Pain. Negative for: Nausea, Vomiting , Diarrhea Physical Exam - Physical Exam Appears: Non-toxic, No Acute Distress, Other (No tremors. Patient sleeping and resting on exam.) Skin: Warm, Dry Head: Atraumatic, Normacephalic Eye(s): bilateral: Normal Inspection Oral Mucosa: Moist Neck: Supple Chest: Symmetrical, No Deformity Cardiovascular: Rhythm Regular, No Murmur Respiratory: Normal Breath Sounds, No Rales, No Rhonchi, No Wheezing Gastrointestinal/Abdominal: Soft, Tenderness (mild epigastric tenderness), No Distention, No Guarding, No Rebound Extremity: Normal ROM, No Tenderness Neurological/Psych: Oriented x3 ED Course And Treatment - Laboratory Results Result Diagrams: 03/29/17 00:24 03/29/17 00:24 O2 Sat by Pulse Oximetry: 98 (RA) - CT Scan/US CT Abdomen and Pelvis Without Intravenous Contrast Other Rad Studies (CT/US): Read By Radiologist, Radiology Report Reviewed CT/US Interpretation: FINDINGS: LOWER THORAX: Small to moderate left pleural effusion, which is incompletely visualized, and. appears mildly enlarged compared to the prior exam. Adjacent dense consolidation in the left lung. base , a new finding, which could represent compressive atelectasis versus pneumonia. Heart. appears mildly enlarged. Dense septum sign noted in the heart , a finding which can be seen with. anemia. Stable appearance of pleural calcifications in the right lung base. ABDOMEN. LIVER: Liver again appears diffusely cirrhotic. 4 cm rounded, low-density area in the right lobe of. the liver posteriorly, suspicious for an indeterminate liver lesion. This was not well visualized on the. prior exam. GALLBLADDER AND BILE DUCTS: Tiny gallstones. Fluid adjacent to the gallbladder. This is most. likely related to the generalized abdominal free fluid rather than representing pericholecystic fluid. secondary to acute cholecystitis. PANCREAS: No CT evidence of acute pancreatitis. SPLEEN: Spleen again appears enlarged, measuring 17 cm in length. ADRENALS: No acute abnormality of the adrenal glands identified. KIDNEYS AND URETERS: No acute abnormality of the kidneys seen. STOMACH AND BOWEL: Mild dilatation involving multiple proximal small bowel loops, a new. finding. This is most likely secondary to a mild ileus of the small bowel. There is no evidence of. diffuse small bowel dilatation, significant small bowel decompression or pneumatosis intestinalis. Otherwise, no significant abnormality of the bowel is identified. No acute abnormality of the colon. identified. APPENDIX: Normal appendix is not seen, however, there are no significant inflammatory changes. visualized in the expected location of the appendix to suggest appendicitis. Recommend clinical. correlation. PELVIS: BLADDER: No acute abnormality of the bladder identified. REPRODUCTIVE: Diffuse scrotal edema, decreased compared to the previous exam, with no. evidence of scrotal gas. ABDOMEN and PELVIS: INTRAPERITONEAL SPACE: Large amount of abdominal and pelvic free fluid/ascites, mildly. increased compared to the prior exam. No evidence of free air again seen. BONES/JOINTS: No acute fractures or other acute bony abnormality noted. SOFT TISSUES: Diffuse subcutaneous edema/anasarca. Fluid in the inguinal canals bilaterally,. causing dilatation of the left inguinal canal up to 7 cm. Fluid in the umbilicus again seen. Bilateral. gynecomastia. VASCULATURE: Multiple collateral vessel guicho, compatible with portal hypertension, including. esophageal varices. No evidence of abdominal aortic aneurysm. LYMPH NODES: Stable mild bilateral inguinal lymphadenopathy. No evidence of diffuse pathologic. lymphadenopathy. IMPRESSION: - Large amount of abdominal and pelvic ascites, mildly increased compared to an 02/19/2017. CT. - Mildly increased left pleural effusion, with new consolidation (pneumonia versus atelectasis). in the left lung base. - Mild small bowel dilatation, most likely due to an ileus. - 4 cm indeterminate liver lesion. Recommend followup liver protocol abdominal MRI, unless. otherwise clinically indicated, not necessarily on an emergent basis. - Otherwise, no significant change. - Diffuse subcutaneous edema/anasarca, including scrotal edema. - Fluid in the umbilicus in the inguinal canals bilaterally and in the umbilicus. - Findings compatible with portal hypertension due to underlying marked cirrhosis of the liver. - Splenomegaly. - See above for remaining findings. Disposition Discussed With : Char Deng Doctor Will See Patient In The: Hospital Counseled Patient/Family Regarding: Diagnosis - Disposition Disposition: HOSPITALIZED Disposition Time: 03:38 Condition: STABLE Forms: [facility] (Lithuanian) - POA Present On Arrival: None - Clinical Impression Clinical Impression: Abdominal pain, Ascites, Pancreatitis, Renal insufficiency - Scribe Statement The provider has reviewed the documentation as recorded by the Demiibles Thornton All medical record entries made by the Bright were at my direction and personally dictated by me. I have reviewed the chart and agree that the record accurately reflects my personal performance of the history, physical exam, medical decision making, and the department course for this patient. I have also personally directed, reviewed, and agree with the discharge instructions and disposition.
[2017-03-29] MEDS ORDERED: Sodium Chloride 0.9% 500 ML IV ONE (02:45)
--- NOTE | 2017-03-29 03:04 | CT ---
EXAM: CT Abdomen and Pelvis Without Intravenous Contrast EXAM DATE/TIME: 03/29/2017 12:15 AM CLINICAL HISTORY: 57 years old, male; Pain; Abdominal pain TECHNIQUE: Axial computed tomography images of the abdomen and pelvis without intravenous contrast. All CT scans at this facility use one or more dose reduction techniques, viz.: automated exposure control; ma/kV adjustment per patient size (including targeted exams where dose is matched to indication; i.e. head); or iterative reconstruction technique. Coronal and sagittal reformatted images were created and reviewed. COMPARISON: Prior CT abdomen pelvis of 02/19/2017 FINDINGS: LOWER THORAX: Small to moderate left pleural effusion, which is incompletely visualized, and appears mildly enlarged compared to the prior exam. Adjacent dense consolidation in the left lung base, a new finding, which could represent compressive atelectasis versus pneumonia. Heart appears mildly enlarged. Dense septum sign noted in the heart, a finding which can be seen with anemia. Stable appearance of pleural calcifications in the right lung base. ABDOMEN: LIVER: Liver again appears diffusely cirrhotic. 4 cm rounded, low-density area in the right lobe of the liver posteriorly, suspicious for an indeterminate liver lesion. This was not well visualized on the prior exam. GALLBLADDER AND BILE DUCTS: Tiny gallstones. Fluid adjacent to the gallbladder. This is most likely related to the generalized abdominal free fluid rather than representing pericholecystic fluid secondary to acute cholecystitis. PANCREAS: No CT evidence of acute pancreatitis. SPLEEN: Spleen again appears enlarged, measuring 17 cm in length. ADRENALS: No acute abnormality of the adrenal glands identified. KIDNEYS AND URETERS: No acute abnormality of the kidneys seen. STOMACH AND BOWEL: Mild dilatation involving multiple proximal small bowel loops, a new finding. This is most likely secondary to a mild ileus of the small bowel. There is no evidence of diffuse small bowel dilatation, significant small bowel decompression or pneumatosis intestinalis. Otherwise, no significant abnormality of the bowel is identified. No acute abnormality of the colon identified. APPENDIX: Normal appendix is not seen, however, there are no significant inflammatory changes visualized in the expected location of the appendix to suggest appendicitis. Recommend clinical correlation. PELVIS: BLADDER: No acute abnormality of the bladder identified. REPRODUCTIVE: Diffuse scrotal edema, decreased compared to the previous exam, with no evidence of scrotal gas. ABDOMEN and PELVIS: INTRAPERITONEAL SPACE: Large amount of abdominal and pelvic free fluid/ascites, mildly increased compared to the prior exam. No evidence of free air again seen. BONES/JOINTS: No acute fractures or other acute bony abnormality noted. SOFT TISSUES: Diffuse subcutaneous edema/anasarca. Fluid in the inguinal canals bilaterally, causing dilatation of the left inguinal canal up to 7 cm. Fluid in the umbilicus again seen. Bilateral gynecomastia. VASCULATURE: Multiple collateral vessel guicho, compatible with portal hypertension, including esophageal varices. No evidence of abdominal aortic aneurysm. LYMPH NODES: Stable mild bilateral inguinal lymphadenopathy. No evidence of diffuse pathologic lymphadenopathy. IMPRESSION: - Large amount of abdominal and pelvic ascites, mildly increased compared to an 02/19/2017 CT. - Mildly increased left pleural effusion, with new consolidation (pneumonia versus atelectasis) in the left lung base. - Mild small bowel dilatation, most likely due to an ileus. - 4 cm indeterminate liver lesion. Recommend followup liver protocol abdominal MRI, unless otherwise clinically indicated, not necessarily on an emergent basis. - Otherwise, no significant change. - Diffuse subcutaneous edema/anasarca, including scrotal edema. - Fluid in the umbilicus in the inguinal canals bilaterally and in the umbilicus. - Findings compatible with portal hypertension due to underlying marked cirrhosis of the liver. - Splenomegaly. - See above for remaining findings.
[2017-03-29] MEDS ORDERED: HYDROmorphone 1 mg/ml ISec IVP PRN (03:44)
[2017-03-29] MEDS ORDERED: Dextrose 5%/0.45% NS 1,000 ML IV SCH ×2 (03:45→09:30)
[2017-03-29 06:21] VITALS: RESP 20
--- NOTE | 2017-03-29 09:29 | CP.PCM.PN ---
Subjective - Date & Time of Evaluation Date of Evaluation: 03/29/17 Time of Evaluation: 09:35 - Subjective Subjective: Dr. Deng note: Patient is seen and examined in room. Patient is unwilling to give a history at this time. He is complaining of severe abdominal pain and discomfort due to distention. He has a history of etoh abuse, Hep C, Syphyllis, and homelessness. Objective - Vital Signs/Intake and Output Vital Signs (last 24 hours): Temp Pulse Resp BP Pulse Ox 97.9 F 67 20 149/73 98 03/29/17 08:26 03/29/17 08:26 03/29/17 08:26 03/29/17 08:26 03/29/17 08:26 - Medications Medications: Current Medications Hydromorphone HCl (Dilaudid) 1 mg IVP Q4H PRN PRN Reason: Pain, moderate (4-7) Dextrose/Sodium Chloride (Dextrose 5%/0.45% Ns 1000 Ml) 1,000 mls @ 100 mls/hr IV .Q10H [facility] Last Admin: 03/29/17 04:52 Dose: 100 mls/hr Lorazepam (Ativan) 2 mg IVP Q4H PRN PRN Reason: Seizure activity Ondansetron HCl (Zofran Inj) 4 mg IVP Q4 PRN PRN Reason: nausea Pantoprazole Sodium (Protonix Inj) 40 mg IVP DAILY [facility] Pneumococcal Polyvalent Vaccine (Pneumovax 23 Vaccine) 0.5 ml IM .ONCE ONE Stop: 03/31/17 10:01 Thiamine HCl (Vitamin B1 Inj) 100 mg IV DAILY [facility] - Labs Labs: 03/29/17 00:24 03/29/17 00:24 PT 19.2 SECONDS (9.7-12.2) H 03/29/17 00:24 INR 1.7 03/29/17 00:24 APTT 31 SECONDS (21-34) 03/29/17 00:24 - Constitutional Appears: Non-toxic, No Acute Distress - Eye Exam Eye Exam: Normal appearance. absent: Scleral icterus Pupil Exam: NORMAL ACCOMODATION - ENT Exam ENT Exam: Normal Exam - Respiratory Exam Respiratory Exam: Clear to Ausculation Bilateral. absent: Rales, Rhonchi, Wheezes - Cardiovascular Exam Cardiovascular Exam: REGULAR RHYTHM, RRR, +S1, +S2. absent: Gallop, Rubs - GI/Abdominal Exam GI & Abdominal Exam: Distended (very distended. ), Firm, Tenderness. absent: Soft, Normal Bowel Sounds - Extremities Exam Extremities Exam: Normal Inspection. absent: Pedal Edema - Back Exam Back Exam: NORMAL INSPECTION - Neurological Exam Neurological Exam: Awake - Psychiatric Exam Psychiatric exam: Normal Affect, Normal Mood - Skin Skin Exam: Normal Color Assessment and Plan (1) Ascites Assessment & Plan: Patient for paracentesis today, 11 liters were drained. continue with IV dilauded as needed, gave replacement albumin. continue with aldactone and Toresimide. Status: Acute (2) Anemia Assessment & Plan: Macrocytic most likely secondary etoh abuse, anemia work up morning cbc Status: Acute (3) Liver cirrhosis Assessment & Plan: S/P paracentesis today, continue with PO aldactone. Lactulose 20mg Q6H, patient refused lactulose, his ammonia level 119 Status: Acute (4) H/O ETOH abuse Assessment & Plan: blood etoh below 10, CIWA protocol and ativan prn. thiamine and folic acid. Status: Chronic (5) Prophylactic measure Assessment & Plan: VTE prophylaxis contraindicated due to thrombocytopenia SCDs and protonix 40mg IVP. Status: Acute
[2017-03-29] MEDS: Thiamine 100 mg/ml Inj IV SCH (10:17)
[2017-03-29 12:29] LABS: POTASSIUM 4.5 mmol/L (3.6-5.2)
[2017-03-29 12:31] LABS: ALB/GLOB RATIO 0.6 (1.0-2.1); BILIRUBIN,TOTAL 3.5 mg/dL (0.2-1.3); TOTAL PROTEIN 7.8 g/dL (6.3-8.3)
[2017-03-29 12:32] LABS: ALCOHOL SERUM < 10 mg/dl (0-10); CALCIUM 8.2 mg/dl (8.6-10.4); MAGNESIUM 1.4 mg/dL (1.6-2.3); PHOSPHOROUS 4.4 mg/dL (2.5-4.5)
--- NOTE | 2017-03-29 14:30 | PCM.SURG1 ---
Surgeon's Initial Post Op Note - Surgeon's Notes Surgeon: Saleem Carroll MD Negotiator: None Type of Anesthesia: Local Pre-Operative Diagnosis: Ascites Operative Findings: US showed large ascites Post-Operative Diagnosis: Ascites Operation Performed: US guided paracentesis Specimen/Specimens Removed: 11 liters Estimated Blood Loss: EBL {In ML}: 0 Blood Products Given: N/A Drains Used: No Drains Post-Op Condition: Fair Date of Surgery/Procedure: 03/29/17 Time of Surgery/Procedure: 14:25
[2017-03-29] MEDS: Magnesium Sulfate 1 gm in D5W 1 GM/100 ML BAG IVPB SCH ×2 (14:51→15:54)
--- NOTE | 2017-03-29 15:29 | US ---
Date of Procedure: 03/29/2017 PROCEDURE: Ultrasound-guided paracentesis, Medications: 7 cc 1% Lidocaine HISTORY: Ascites, abdominal pain TECHNIQUE: Following informed consent , the patient was placed supine on the stretcher and the site was marked. A limited abdominal ultrasound was performed that showed a large amount of intra-abdominal fluid. Procedural time out was called and the Pt's abdomen was marked and prepped and draped in the usual sterile fashion. Ultrasound-guided large volume paracentesis performed. A total of 11 liters of straw colored fluid was removed without complication. IMPRESSION: Ultrasound-guided large volume paracentesis.
[2017-03-29] MEDS ORDERED: Albumin Human 25% (12.5 gm/50 ml) IV ONE (16:00)
--- NOTE | 2017-03-29 22:26 | DS ---
The patient was admitted to hospital with abdominal pain. The patient was found to have gallstones, the patient had cholecystectomy, discharged to be followed as outpatient. Char Deng MD
[2017-03-30 08:34] LABS: POTASSIUM 4.7 mmol/L (3.6-5.2)
[2017-03-30 08:36] LABS: ALB/GLOB RATIO 0.5 (1.0-2.1); PHOSPHOROUS 3.5 mg/dL (2.5-4.5); TOTAL PROTEIN 6.3 g/dL (6.3-8.3)
[2017-03-30 08:37] LABS: MAGNESIUM 1.7 mg/dL (1.6-2.3)
[2017-03-30 08:52] LABS: IRON 39 ug/dL (49-181)
[2017-03-30 09:42] LABS: FOLATE 16.1 ng/mL
--- NOTE | 2017-03-30 09:43 | PN ---
SUBJECTIVE: The patient is improving after surgery, possible discharge to home today. Char Deng MD
[2017-03-30] MEDS: Thiamine 100 mg/ml Inj IV SCH (10:57)
--- NOTE | 2017-03-30 11:14 | CP.PCM.PN ---
Subjective - Date & Time of Evaluation Date of Evaluation: 03/30/17 Time of Evaluation: 10:00 - Subjective Subjective: Dr. perez note: Patient seen in room, unable to obtain history from patient but according to nurse he has had several episodes of diarrhea. Objective - Vital Signs/Intake and Output Vital Signs (last 24 hours): Temp Pulse Resp BP Pulse Ox 98.3 F 79 20 124/50 L 99 03/30/17 07:35 03/30/17 07:35 03/30/17 07:35 03/30/17 07:35 03/30/17 07:35 Intake and Output: 03/30/17 03/30/17 06:59 18:59 Intake Total 820 400 Balance 820 400 - Medications Medications: Current Medications Hydromorphone HCl (Dilaudid) 1 mg IVP Q4H PRN PRN Reason: Pain, moderate (4-7) Ceftriaxone Sodium 1 gm/ (Sodium Chloride) 100 mls @ 100 mls/hr IVPB DAILY [facility] Last Admin: 03/30/17 10:55 Dose: 100 mls/hr Lactulose (Enulose) 20 gm PO Q6H [facility] Last Admin: 03/30/17 06:52 Dose: Not Given Lorazepam (Ativan) 2 mg IVP Q4H PRN PRN Reason: Seizure activity Ondansetron HCl (Zofran Inj) 4 mg IVP Q4 PRN PRN Reason: nausea Pantoprazole Sodium (Protonix Inj) 40 mg IVP DAILY [facility] Last Admin: 03/30/17 10:57 Dose: 40 mg Pneumococcal Polyvalent Vaccine (Pneumovax 23 Vaccine) 0.5 ml IM .ONCE ONE Stop: 03/31/17 10:01 Propranolol HCl (Inderal) 10 mg PO TID [facility] Last Admin: 03/30/17 10:58 Dose: 10 mg Spironolactone (Aldactone) 12.5 mg PO DAILY [facility] Last Admin: 03/30/17 10:57 Dose: 12.5 mg Thiamine HCl (Vitamin B1 Inj) 100 mg IV DAILY [facility] Last Admin: 03/30/17 10:57 Dose: 100 mg Torsemide (Demadex) 10 mg PO DAILY [facility] Last Admin: 03/30/17 10:57 Dose: 10 mg - Labs Labs: 03/29/17 00:24 03/30/17 08:09 PT 19.2 SECONDS (9.7-12.2) H 03/29/17 00:24 INR 1.7 03/29/17 00:24 APTT 31 SECONDS (21-34) 03/29/17 00:24 - Constitutional Appears: Older Than Stated Age - Eye Exam Eye Exam: PERRL, Scleral icterus - Neck Exam Neck Exam: Normal Inspection - GI/Abdominal Exam GI & Abdominal Exam: Firm. absent: Soft, Tenderness - Extremities Exam Extremities Exam: Normal Inspection. absent: Pedal Edema Assessment and Plan - Assessment and Plan (Free Text) Assessment: Assessment and Plan (1) Ascites Assessment & Plan: 03/30: Patient given Laculose for high ammonia levels, complaining of several episodes of diarrhea, have help his discharge till tomorrow morning, follow up on his CMP, mag, phos. Will discharge with PO Aladactone, Toresimide, and lactulose. Patient for paracentesis today, 11 liters were drained. continue with IV dilauded as needed, gave replacement albumin. continue with aldactone and Toresimide. Status: Acute (2) Anemia Assessment & Plan: 03/30: Discharge with PO iron Macrocytic most likely secondary etoh abuse, anemia work up morning cbc Status: Acute (3) Liver cirrhosis Assessment & Plan: 03/30: Ammonia level is 53, but still having several episodes of diarrhea, discharge in the morning if stable. S/P paracentesis today, continue with PO aldactone. Lactulose 20mg Q6H, patient refused lactulose, his ammonia level 119 Status: Acute (4) H/O ETOH abuse Assessment & Plan: blood etoh below 10, CIWA protocol and ativan prn. thiamine and folic acid. Status: Chronic (5) Prophylactic measure Assessment & Plan: VTE prophylaxis contraindicated due to thrombocytopenia SCDs and protonix 40mg IVP. Status: Acute
[2017-03-30] MEDS ORDERED: Influenza Vaccine 60 mcg/0.5 mL SYR (4YR UP) IM ONE (12:00)
[2017-03-30] MEDS ORDERED: Pneumococcal 23-Valent Vaccine IM ONE (12:15)
[2017-03-31 07:24] LABS: EOS # 0.2 K/uL (0.0-0.7); LYMPH # 1.9 K/uL (1.0-4.3)
[2017-03-31 07:27] LABS: POTASSIUM 3.7 mmol/L (3.6-5.2)
[2017-03-31 07:29] LABS: BILIRUBIN,TOTAL 1.5 mg/dL (0.2-1.3)
[2017-03-31 07:30] LABS: ALB/GLOB RATIO 0.5 (1.0-2.1); CALCIUM 7.7 mg/dl (8.6-10.4); MAGNESIUM 1.6 mg/dL (1.6-2.3); PHOSPHOROUS 3.4 mg/dL (2.5-4.5); TOTAL PROTEIN 6.1 g/dL (6.3-8.3)
[2017-03-31 07:34] LABS: EOS % 1.4 % (0.0-4.0); RED CELL DISTRIBUTION WIDTH 17.3 % (11.5-14.5)
[2017-03-31 07:40] LABS: BASO % 0.2 % (0.0-2.0); HEMATOCRIT 23.9 % (35.0-51.0); LYMPH % 11.6 % (20.0-40.0); MEAN CELL VOLUME 101.4 fL (80.0-94.0); MEAN CORPUSCULAR HEMOGLOBIN 34.7 pg (27.0-31.0); MEAN CORPUSCULAR HGB CONC 34.2 g/dL (33.0-37.0); MEAN PLATELET VOLUME 9.8 fL (7.2-11.7); MONO # 0.8 K/uL (0.0-0.8); MONO % 5.1 % (0.0-10.0)
--- NOTE | 2017-03-31 07:41 | CP.PCM.PN ---
Subjective - Date & Time of Evaluation Date of Evaluation: 03/31/17 Time of Evaluation: 07:35 - Subjective Subjective: PGY-[address] Deng's service: Pt seen and examined at bedside. Nursing reports no acute events overnight. Pt for discharge today. He is found walking the halls with physical therapist. He is oriented x 3, mentating without delay, and denies dizziness, CP, SOB, or palpitations. Objective - Vital Signs/Intake and Output Vital Signs (last 24 hours): Temp Pulse Resp BP Pulse Ox 99.0 F 72 20 120/51 L 100 03/31/17 07:16 03/31/17 07:16 03/31/17 07:16 03/31/17 07:16 03/31/17 07:16 Intake and Output: 03/31/17 03/31/17 06:59 18:59 Intake Total 700 Balance 700 - Medications Medications: Current Medications Hydromorphone HCl (Dilaudid) 1 mg IVP Q4H PRN PRN Reason: Pain, moderate (4-7) Ceftriaxone Sodium 1 gm/ (Sodium Chloride) 100 mls @ 100 mls/hr IVPB DAILY [facility] Last Admin: 03/30/17 10:55 Dose: 100 mls/hr Lactulose (Enulose) 20 gm PO Q6H [facility] Last Admin: 03/30/17 13:58 Dose: Not Given Lorazepam (Ativan) 2 mg IVP Q4H PRN PRN Reason: Seizure activity Ondansetron HCl (Zofran Inj) 4 mg IVP Q4 PRN PRN Reason: nausea Pantoprazole Sodium (Protonix Inj) 40 mg IVP DAILY [facility] Last Admin: 03/30/17 10:57 Dose: 40 mg Propranolol HCl (Inderal) 10 mg PO TID [facility] Last Admin: 03/30/17 17:47 Dose: Not Given Spironolactone (Aldactone) 12.5 mg PO DAILY [facility] Last Admin: 03/30/17 10:57 Dose: 12.5 mg Thiamine HCl (Vitamin B1 Inj) 100 mg IV DAILY [facility] Last Admin: 03/30/17 10:57 Dose: 100 mg Torsemide (Demadex) 10 mg PO DAILY [facility] Last Admin: 03/30/17 10:57 Dose: 10 mg - Labs Labs: 03/29/17 00:24 03/30/17 08:09 PT 19.2 SECONDS (9.7-12.2) H 03/29/17 00:24 INR 1.7 03/29/17 00:24 APTT 31 SECONDS (21-34) 03/29/17 00:24 - Constitutional Appears: Older Than Stated Age - Head Exam Head Exam: ATRAUMATIC - Eye Exam Eye Exam: EOMI, PERRL, Scleral icterus - ENT Exam ENT Exam: Mucous Membranes Moist - Cardiovascular Exam Cardiovascular Exam: REGULAR RHYTHM, +S1, +S2 - GI/Abdominal Exam GI & Abdominal Exam: Firm. absent: Soft, Tenderness - Rectal Exam Rectal Exam: absent: Black Stool, Bloody Stool Additional comments: Rectal negative for acute blood loss - Extremities Exam Extremities Exam: Normal Inspection. absent: Pedal Edema - Neurological Exam Neurological Exam: Alert, Awake, Oriented x3 - Psychiatric Exam Psychiatric exam: Normal Affect, Normal Mood - Skin Skin Exam: Normal Color, Warm Assessment and Plan - Assessment and Plan (Free Text) Plan: Disposition: Marked for discharge for today. Prescriptions given for Aldactone, Torsemide, Lactulose, Iron, Thiamine, FA in chart. Pt given prescription for straight cane per PT recommendation. (1) Ascites Assessment & Plan: 03/30: Patient given Laculose for high ammonia levels, complaining of several episodes of diarrhea, have help his discharge till tomorrow morning, follow up on his CMP, mag, phos. Will discharge with PO Aladactone, Toresimide, and lactulose. Patient for paracentesis today, 11 liters were drained. continue with IV dilauded as needed, gave replacement albumin. continue with aldactone and Toresimide. Status: Acute (2) Anemia Assessment & Plan: 03/30: Discharge with PO iron Macrocytic most likely secondary etoh abuse, anemia work up morning cbc Status: Acute (3) Liver cirrhosis Assessment & Plan: 03/31: Pt stable nursing reports no episodes of diarrhea overnight. 03/30: Ammonia level is 53, but still having several episodes of diarrhea, discharge in the morning if stable. S/P paracentesis today, continue with PO aldactone. Lactulose 20mg Q6H, patient refused lactulose, his ammonia level 119 Status: Acute (4) H/O ETOH abuse Assessment & Plan: blood etoh below 10, CIWA protocol and ativan prn. thiamine and folic acid. Status: Chronic (5) Prophylactic measure Assessment & Plan: VTE prophylaxis contraindicated due to thrombocytopenia SCDs and protonix 40mg IVP. Status: Acute Obinna Mistry PGY-2 All medical management per Dr. Deng.
[2017-03-31 07:43] LABS: WHITE BLOOD COUNT 16.4 K/uL (4.8-10.8)
--- NOTE | 2017-03-31 08:05 | DS ---
The patient was admitted to hospital complaining of abdominal pain. The patient was found to have gallstones, the patient had cholecystectomy, the patient will be followed as outpatient. FINAL DIAGNOSES: Gallstones, cholecystitis. Char Deng MD
[2017-03-31] MEDS: Thiamine 100 mg/ml Inj IV SCH (10:25)
[2017-03-31 16:34] VITALS: BP 122/64; PULSE 79; TEMP 98.1; O2SAT 97
--- NOTE | 2017-04-10 10:34 | HP ---
HISTORY OF PRESENT ILLNESS: The patient has complained of a history of hematuria, and has extensive history of alcoholism. PHYSICAL EXAMINATION: GENERAL: The patient is awake, lethargic. VITAL SIGNS: Temperature 98 and pulse 90. HEENT: Within normal limits. NECK: Supple. CHEST: Symmetrical. HEART: Regular. ABDOMEN: Soft. EXTREMITIES: No edema. The patient has . The patient gets supportive care. Char Deng MD
== END 2017-03-31 17:06 | disposition home or self-care (01) | DRG 202 ==
LOC: C.ER 22:38 → C.3T 03-29 03:39 → C.3D 03-29 15:47 → C.3T 03-29 15:50
PROVIDERS: ADMIT Internal Medicine Pulmonary Disease; ATTEND Internal Medicine Pulmonary Disease
PROC: 0W9G3ZZ Drainage of Peritoneal Cavity, Percutaneous Approach (ICD-10-PCS; principal; 2017-03-29)
DX: K70.31 Alcoholic cirrhosis of liver with ascites (principal); K76.6 Portal hypertension; D69.6 Thrombocytopenia, unspecified; K85.90 Acute pancreatitis without necrosis or infection, unspecified; D64.9 Anemia, unspecified; K80.10 Calculus of gallbladder with chronic cholecystitis without obstruction; B19.20 Unspecified viral hepatitis C without hepatic coma; Y90.0 Blood alcohol level of less than 20 mg/100 ml; I10 Essential (primary) hypertension; F41.9 Anxiety disorder, unspecified; N28.9 Disorder of kidney and ureter, unspecified; Z59.0 Homelessness; F10.20 Alcohol dependence, uncomplicated; A53.9 Syphilis, unspecified; R19.7 Diarrhea, unspecified

== ENCOUNTER 2017-04-08 00:34 | Inpatient (IN) | payer MEDICAID ==
[2017-04-08] MEDS ORDERED: Pantoprazole 80 MG in Sodium Chloride 0.9% 100 ML IV STA (00:47)
[2017-04-08] MEDS ORDERED: Sodium Chloride 0.9% 1,000 ML IV ONE (00:47)
--- NOTE | 2017-04-08 00:56 | C.PDOC ---
History Of Present Illness 57 y/o male patient presents to the ER with a distended abdomen and some abdominal pain. Patient was in ER 10 days ago for similiar complaints. Patient denies any alcohol use, nausea or vomiting. Time Seen by Provider: 04/08/17 00:46 Chief Complaint (Nursing): Abdominal Pain History Per: Patient History/Exam Limitations: no limitations Current Symptoms Are (Timing): Still Present Severity: Moderate Pain Scale Rating Of: 4 Location Of Pain/Discomfort: Diffuse Radiation Of Pain To:: None Quality Of Discomfort: Unable To Describe Associated Symptoms: denies: Fever, Nausea Exacerbating Factors: None Alleviating Factors: None Recent travel outside of the [place]: No Additional History Per: Patient Past Medical History Reviewed: Historical Data, Nursing Documentation, Vital Signs Vital Signs: Last Vital Signs Temp 98.2 F 04/08/17 04:56 Pulse 94 H 04/08/17 04:56 Resp 20 04/08/17 04:56 BP 107/35 L 04/08/17 04:56 Pulse Ox 98 04/08/17 04:56 - Medical History PMH: Anemia, Anxiety, HTN Surgical History: No Surg Hx - [facility] Procedures DRAINAGE OF PERITONEAL CAVITY, PERCUTANEOUS APPROACH (03/29/17) TRANSFUSE NONAUT RED BLOOD CELLS IN PERIPH VEIN, OPEN (02/19/17) TRANSFUSE NONAUT RED BLOOD CELLS IN PERIPH VEIN, PERC (03/02/17) ULTRASONOGRAPHY OF ABDOMEN (03/02/17) Family History: States: No Known Family Hx - Social History Hx Alcohol Use: Yes Hx Substance Use: No - Immunization History Hx Tetanus Toxoid Vaccination: No Hx Influenza Vaccination: No Hx Pneumococcal Vaccination: No Review Of Systems Constitutional: Negative for: Fever Cardiovascular: Negative for: Chest Pain Respiratory: Positive for: Shortness of Breath Gastrointestinal: Positive for: Abdominal Pain. Negative for: Nausea, Vomiting Genitourinary: Negative for: Dysuria Musculoskeletal: Negative for: Back Pain Skin: Negative for: Rash Neurological: Negative for: Weakness Psych: Negative for: Anxiety Physical Exam - Physical Exam Appears: Non-toxic Skin: Warm, Dry Head: Normacephalic Eye(s): bilateral: Normal Inspection Oral Mucosa: Dry Neck: Supple Chest: Symmetrical Cardiovascular: Rhythm Regular Respiratory: No Rales, No Rhonchi, No Wheezing Gastrointestinal/Abdominal: Soft, Distention, No Guarding, No Rebound, Other ( positive fluid wave) Back: No CVA Tenderness Extremity: No Tenderness Extremity: Bilateral: Atraumatic Pulses: Left Dorsalis Pedis: Normal, Right Dorsalis Pedis: Normal Neurological/Psych: Oriented x3, Normal Speech Gait: Steady ED Course And Treatment - Laboratory Results Result Diagrams: 04/08/17 02:59 04/08/17 02:59 ECG: Interpreted By Me, Viewed By Me ECG Rhythm: Sinus Rhythm (93), Nonspecific Changes O2 Sat by Pulse Oximetry: 99 (room air) Pulse Ox Interpretation: Normal - Radiology CXR: Interpreted by Me CXR Interpretation: No: Infiltrates, Fracture, Pnemothorax Progress Note: Plans-BBK,EKG,Blood tests,Chest x-ray,Urinalysis. Meds-Zofran, IV fluid, Disposition Discussed With : Char Deng Comment: accepted the pt on his service and took over the care at 3:30 AM Doctor Will See Patient In The: Hospital Counseled Patient/Family Regarding: Studies Performed, Diagnosis - Disposition Disposition: HOSPITALIZED Disposition Time: 05:07 Condition: FAIR - Clinical Impression Clinical Impression: Ascites, Abdominal distension, Hyperammonemia - Scribe Statement The provider has reviewed the documentation as recorded by the Bright Argueta Provider Attestation: All medical record entries made by the Bright were at my direction and personally dictated by me. I have reviewed the chart and agree that the record accurately reflects my personal performance of the history, physical exam, medical decision making, and the department course for this patient. I have also personally directed, reviewed, and agree with the discharge instructions and disposition. Decision To Admit - Pt Status Changed To: Hospital Disposition Of: Inpatient - Admit Certification Admit to Inpatient:: After my assessment, the patient will require hospitalization for at least two midnights. This is because of the severity of symptoms shown, intensity of services needed, and/or the medical risk in this patient being treated as an outpatient. - InPatient: Physician Admission Certification:: After my assessment, the patient will require hospitalization for at least two midnights. This is because of the severity of symptoms shown, intensity of services needed, and/or the medical risk in this patient being treated as an outpatient. - . Bed Request Type: Regular Admitting Physician: Char Deng Patient Diagnosis: Ascites, Abdominal distension, Hyperammonemia
[2017-04-08] MEDS ORDERED: Sodium Chloride 0.9% 1,000 ML ONE (02:28)
[2017-04-08 03:02] LABS: BASO # 0.1 K/uL (0.0-0.2); BASO % 0.7 % (0.0-2.0); EOS # 0.1 K/uL (0.0-0.7); EOS % 1.6 % (0.0-4.0); HEMATOCRIT 21.9 % (35.0-51.0); LYMPH # 1.3 K/uL (1.0-4.3); LYMPH % 16.8 % (20.0-40.0); MEAN CELL VOLUME 100.4 fL (80.0-94.0); MEAN CORPUSCULAR HEMOGLOBIN 34.4 pg (27.0-31.0); MEAN CORPUSCULAR HGB CONC 34.3 g/dL (33.0-37.0); MEAN PLATELET VOLUME 8.9 fL (7.2-11.7); MONO # 0.8 K/uL (0.0-0.8); MONO % 10.3 % (0.0-10.0); RED CELL DISTRIBUTION WIDTH 16.2 % (11.5-14.5); WHITE BLOOD COUNT 7.8 K/uL (4.8-10.8)
[2017-04-08 03:11] LABS: INR 1.6
[2017-04-08 03:15] LABS: ALB/GLOB RATIO 0.4 (1.0-2.1); BILIRUBIN,TOTAL 2.2 mg/dL (0.2-1.3); CALCIUM 7.9 mg/dl (8.6-10.4); TOTAL PROTEIN 7.5 g/dL (6.3-8.3)
[2017-04-08 03:17] LABS: POTASSIUM 5.3 mmol/L (3.6-5.2)
[2017-04-08] MEDS: Pantoprazole 40 mg EC Tab PO SCH (10:48)
--- NOTE | 2017-04-08 12:54 | RAD ---
PROCEDURE: CHEST RADIOGRAPH, 1 VIEW HISTORY: GI Bleeding COMPARISON: Comparison is made to 03/02/2017 FINDINGS: LUNGS: Clear. PLEURA: No pneumothorax or pleural fluid seen. CARDIOVASCULAR: Normal. OSSEOUS STRUCTURES: No significant abnormalities. VISUALIZED UPPER ABDOMEN: Normal. OTHER FINDINGS: None. IMPRESSION: No active disease.
[2017-04-08 14:26] LABS: INR 1.8
[2017-04-08 15:18] LABS: CA 19-9 19.6 U/mL (0-37)
[2017-04-09] MEDS: Pantoprazole 40 mg EC Tab PO SCH (10:19)
--- NOTE | 2017-04-10 08:15 | CON ---
DATE: 04/08/[address] Yael Archibald to Dr. Char Deng. REASON FOR CONSULTATION: I was called for GI consultation by the admitting medical team. The patient is seen and fully examined on 04/08/2017 in the presence of Amharic spoken nephew as a director of child welfare services also. The entire chart is reviewed including, but not limited to the most recent lab and radiological study results, current and the previous medication list, current and the previous medical events as well as allergy to medication list. HISTORY OF PRESENT ILLNESS: This is a 57-year-old male who was admitted to the hospital through the emergency room with a main complaint of increased abdominal girth, denying any active bleeding, alcohol induced, nausea or vomiting, but abdominal pain. It has to be mentioned that the patient is very non-cooperative and apparently has been refusing taking the medication during this admission as well as refusing any aggressive workup or paracentesis. The patient had been before in the emergency room and apparently in the hospital in various occasions due to the same complaint. PAST MEDICAL HISTORY: 1. Hypertension. 2. Severe anxiety syndrome. 3. Anemia. 4. Ascites. The patient apparently and recently received blood transfusion due to his anemia. FAMILY HISTORY: Unknown. SOCIAL HISTORY: Was reported to be positive despite the patient deny, but no cigarette smoking recently. ALLERGIES TO MEDICATIONS: UNCLEAR. CURRENT MEDICATIONS: Both admission medication is seen. LABORATORY DATA: Initial blood workup after admission showed hemoglobin of 7.5, hematocrit of 21.9, with low platelets of 79. With increased potassium 5.3, low CO2 content of 13 indicative of metabolic acidosis with increased BUN of 54 and creatinine of 2.1. PHYSICAL EXAMINATION GENERAL: A 57-year-old male very poorly cooperative. VITAL SIGNS: Afebrile, at the time seen by me with pulse of 92, respiratory rate of 20 to 22, and blood pressure of 112/48. HEENT: Showed pale, dry mucoid membranes. Nonicteric sclerae. LYMPH NODES: No lymphadenitis or lymphadenopathy. LUNGS: Scattered crepitation with decreased air entry at bases. HEART: Positive S1 and S2 with increased rate. ABDOMEN: Moderate amount of ascites and distention Bowel sounds are hypoactive. No mass or organomegaly. No rebound tenderness or guarding. RECTAL: The patient refused. EXTREMITIES: Mild lower extremity edematous changes. No clubbing or cyanosis. NEUROLOGIC: No reported new neurological deficits, sensory or motor. IMPRESSION: 1. Evidence of liver cirrhosis, portal hypertension and ascites. 2. Thrombocytopenia most likely secondary to above. 3. Anemia with possible gastrointestinal blood loss upper versus lower. 4. Rule out occult gastrointestinal malignancy. 5. To rule out possible as listed hepatic encephalopathy with inappropriate behavior, ammonia level to be obtained. 6. Neurology consult is requested at this point. 7. Known history of hypertension with an anxiety syndrome as per record. SUGGESTION: 1. Agree with your plan. 2. Add neomycin p.o. 3. CAT scan guided abdominal paracentesis after correcting the patient's thrombocytopenia. 4. Follow up on coagulopathy status with repeat PT and PTT. 5. Cancer markers including CEA, alpha fetoprotein and PSA. 6. Rehydration and correct the patient with metabolic acidosis. 7. Further recommendation to follow. 8. Again the patient is refusing aggressive treatment and at some point any oral medication. Thank you for letting me participate in your patient's care and management. Yael Archibald MD
--- NOTE | 2017-04-10 08:38 | PN ---
DATE: 04/09/2017 LOCATION: Room 358, bed B. SUBJECTIVE: This is a 57-year-old male, seen and examined in rounds earlier this morning without significant clinical changes, no reported active bleeding, but very poor oral intake with poor appetite. Reported to have some unsteady gait with large amount of bowel movement post medication given yesterday. The entire chart is reviewed including, but not limited to the most recent lab and radiology study results, current and pervious medication list, current and previous medical events. PHYSICAL EXAMINATION GENERAL: A 57-year-old male somewhat poorly cooperative, denied any evidence of active bleeding. VITAL SIGNS: Afebrile with pulse of 80, respiratory 20-22, blood pressure 114/64. HEENT: Showed well dried mucosa membrane, bilateral icteric sclerae. LUNGS: Few scattered crepitations. Decreased air entry at bases. HEART: Positive S1 and S2. ABDOMEN: Was stiff, mild distention with positive ascites. No mass or organomegaly. No rebound tenderness or guarding. EXTREMITIES: Mild lower extremities edematous changes. No clubbing or cyanosis. NEUROLOGIC: No reported new neurological deficits, sensory or motor. LABORATORY DATA: The patient still have low hemoglobin of 7.5, low hematocrit 21.9 with platelet count of 79 and increased PT to 20.6 with PTT 51, with increased potassium of 5.3, total bilirubin elevated 2.2 with AST 61, elevated but normal ALT with BUN 54, creatinine 2.1. Ammonia level went down to 62 with low albumin 2.3 as per yesterday's report. IMPRESSION: 1. Alcoholism with alcoholic liver disease despite the patient denied. 2. Mild hepatic encephalopathy, with improving ammonia level gradually, on neomycin and lactulose. 3. Severe anemia. Rule out gastrointestinal blood loss upper versus lower, the patient refusing any aggressive treatment in the meantime. 4. Portal hypertension, ascites. 5. Known history of hypertension, anemia and severe anxiety syndrome. SUGGESTION: 1. Continue current management. 2. CAT scan guided abdominal paracentesis by IR. 3. The patient may need endoscopic evaluation of upper and lower GI tract if he is agreeable, he is still refusing any aggressive workup. 4. It has to be mention that the patient's alpha-fetoprotein is elevated to 83 with CEA level 4 and therefore GI investigation to be kept in mind however that could be secondary to his hepatic disorder. Yael Archibald MD
[2017-04-10] MEDS: Pantoprazole 40 mg EC Tab PO SCH (09:48)
--- NOTE | 2017-04-10 09:51 | HP ---
HISTORY OF PRESENT ILLNESS: Mr. Marte is a 57-year-old male with abdominal distention, weakness, fatigue, and tiredness. The patient came to the hospital, advised admission. The patient has a history of alcoholic liver disease, ascites. PHYSICAL EXAMINATION: GENERAL: The patient is awake, alert, and oriented. VITAL SIGNS: Temperature 98, pulse 90. HEENT: Within normal limits. NECK: Supple. CHEST: Symmetrical. HEART: Regular. ABDOMEN: Distended. EXTREMITIES: No edema. IMPRESSION: The patient has alcoholic liver disease. The patient on bedrest, supportive care. Char Deng MD
[2017-04-10] MEDS ORDERED: Influenza Vaccine 60 mcg/0.5 mL SYR (4YR UP) IM ONE (10:00)
[2017-04-10 12:38] LABS: BODY FLUID TYPE PERITONEAL
--- NOTE | 2017-04-10 12:42 | PCM.SURG1 ---
Surgeon's Initial Post Op Note - Surgeon's Notes Surgeon: Saleem Carroll MD Aircraft Machinist Helper: NONE Type of Anesthesia: Local Pre-Operative Diagnosis: Refractory ascites Operative Findings: US showed a large amount of ascites Post-Operative Diagnosis: Refractory ascites Operation Performed: US guided paracentesis. Specimen/Specimens Removed: 9.5 liters Estimated Blood Loss: EBL {In ML}: 0 Blood Products Given: N/A Drains Used: No Drains Post-Op Condition: Fair Date of Surgery/Procedure: 04/10/17 Time of Surgery/Procedure: 12:30
--- NOTE | 2017-04-10 12:45 | CARD ---
APPROVED REPORT EKG Measurement Heart [id number] <Conclusion> Normal sinus rhythm Normal ECG
--- NOTE | 2017-04-10 12:47 | US ---
Date of Procedure: 04/10/2017 PROCEDURE: Ultrasound-guided paracentesis, Medications: 7 cc 1% Lidocaine HISTORY: Ascites, abdominal pain TECHNIQUE: Following informed consent , the patient was placed supine on the stretcher and the site was marked. A limited abdominal ultrasound was performed that showed a large amount of intra-abdominal fluid. Procedural time out was called and the Pt's abdomen was marked and prepped and draped in the usual sterile fashion. Ultrasound-guided large volume paracentesis performed. A total of 9.5 liters of slight serosanguinous fluid was removed without complication. IMPRESSION: Ultrasound-guided large volume paracentesis.
--- NOTE | 2017-04-10 12:55 | CP.PCM.PN ---
Subjective - Date & Time of Evaluation Date of Evaluation: 04/10/17 Time of Evaluation: 13:17 - Subjective Subjective: Patient seen and examined at bedside; ANOx3; declined to talk about his health conditions when it was brought up that he was never treated for syphilis and has a meningioma. He has no health care proxy and was getting upset when i was attempting to have a goals of care conversation with him. He otherwise has no complaints. Objective - Vital Signs/Intake and Output Vital Signs (last 24 hours): Temp Pulse Resp BP Pulse Ox 98.6 F 67 20 122/51 L 98 04/10/17 08:25 04/10/17 08:25 04/10/17 08:25 04/10/17 08:25 04/10/17 08:25 Intake and Output: 04/10/17 04/10/17 06:59 18:59 Intake Total 700 Output Total 450 Balance 250 - Medications Medications: Current Medications Ferrous Sulfate (Feosol) 325 mg PO DAILY [facility] Last Admin: 04/10/17 09:47 Dose: 325 mg Folic Acid (Folic Acid) 1 mg PO DAILY [facility] Last Admin: 04/10/17 09:47 Dose: 1 mg Lactulose (Enulose) 20 gm PO TID [facility] Last Admin: 04/10/17 09:46 Dose: 20 gm Neomycin Sulfate (Neomycin Tab) 500 mg PO Q6 [facility] Last Admin: 04/10/17 12:52 Dose: Not Given Pantoprazole Sodium (Protonix Ec Tab) 40 mg PO DAILY [facility] Last Admin: 04/10/17 09:48 Dose: 40 mg Pneumococcal Polyvalent Vaccine (Pneumovax 23 Vaccine) 0.5 ml IM .ONCE ONE Stop: 04/11/17 10:01 Propranolol HCl (Inderal) 10 mg PO TID [facility] Last Admin: 04/10/17 09:47 Dose: 10 mg Rifaximin (Xifaxan) 550 mg PO BID [facility] Last Admin: 04/10/17 11:30 Dose: Not Given Spironolactone (Aldactone) 25 mg PO DAILY [facility] Last Admin: 04/10/17 09:46 Dose: 25 mg Thiamine HCl (Vitamin B1 Tab) 100 mg PO DAILY [facility] Last Admin: 04/10/17 09:48 Dose: 100 mg Torsemide (Demadex) 10 mg PO DAILY [facility] Last Admin: 04/10/17 09:46 Dose: 10 mg - Labs Labs: 04/08/17 02:59 04/08/17 02:59 PT 20.6 SECONDS (9.7-12.2) H 04/08/17 14:09 INR 1.8 04/08/17 14:09 APTT 51 SECONDS (21-34) H D 04/08/17 14:09 - Constitutional Appears: Non-toxic - Head Exam Head Exam: NORMAL INSPECTION - Eye Exam Eye Exam: EOMI - ENT Exam ENT Exam: Mucous Membranes Moist - Neck Exam Neck Exam: Full ROM - Respiratory Exam Respiratory Exam: Rales, NORMAL BREATHING PATTERN. absent: Clear to Ausculation Bilateral, Rhonchi, Wheezes - Cardiovascular Exam Cardiovascular Exam: REGULAR RHYTHM, +S1, +S2 - GI/Abdominal Exam GI & Abdominal Exam: Distended, Soft (fluid wave present 9.5l was removed from patient ) - Back Exam Back Exam: NORMAL INSPECTION. absent: CVA tenderness (L), CVA tenderness (R) - Neurological Exam Neurological Exam: Awake, Oriented x3 - Psychiatric Exam Psychiatric exam: Normal Affect - Skin Skin Exam: Warm Assessment and Plan - Assessment and Plan (Free Text) Assessment: 57yo M admitted for ascites 2/2 to liver failure Ascites 2/2 to liver failure -no abdominal pain, no fevers/chills, awaiting fluid analysis -patient is otherwise ANOx3 -lactulose 30mg TID and Rifamixin BID for hyperammonia; down from admission -f/u fluid analysis; if cloudy/ more than 250PMN or bacteria will treat with ceftriaxone 2g daily for SBP -patient is hepatitis C positive; will need GI followup -MELD score 26; 19.6% chance of 3 month mortality; patient will need GI followup -spironolactone and propanolol for prophylaxis -control BP -Patient was advised to follow up with Dr. Lee in the past for GI followup; Dr. Marcum on consult for this admission; appreciate recs Microscopic Hematuria re-ordering UA again today; was +3 positive for blood on admission -consider outpatient urological followup for hematuria Chronic Anemia Hbg 7.5 on admission will follow CKD -GFR 40; previous admission was 36 -avoid nephrotoxic agents Untreated Syphilis -RPR and FTA-ABS were positive; on last admission patient did not want to stay for FTA-ABS results and never followed up in the [facility] clinic -will give 1.2million units in each buttock penicillin -will need to follow up titers in 6-8 weeks for treatment Meningioma -patient declined neurosurgical intervention last time as well and on this admission -will consult palliative care for POLST/goals of care while in the hospital Prophylaxis -Pepcid -SCD
[2017-04-10 13:16] LABS: BF GROSS APPEARANCE BLOODY (CLEAR); BODY FLUID TOTAL COUNT 100 (0-0)
[2017-04-10] MEDS ORDERED: Penicillin G Benzathine 2.4 Mill Unit/4 ml Syr IM ONE (14:00)
[2017-04-11 06:19] LABS: BASO % 0.3 % (0.0-2.0); EOS # 0.2 K/uL (0.0-0.7); EOS % 1.7 % (0.0-4.0); HEMATOCRIT 23.6 % (35.0-51.0); LYMPH % 19.3 % (20.0-40.0); MEAN CELL VOLUME 100.1 fL (80.0-94.0); MEAN CORPUSCULAR HEMOGLOBIN 35.1 pg (27.0-31.0); MEAN PLATELET VOLUME 8.7 fL (7.2-11.7); MONO % 9.8 % (0.0-10.0); WHITE BLOOD COUNT 10.2 K/uL (4.8-10.8)
--- NOTE | 2017-04-11 06:28 | CP.PCM.PN ---
Subjective - Date & Time of Evaluation Date of Evaluation: 04/11/17 Time of Evaluation: 10:00 - Subjective Subjective: Dr. Deng note: Patient seen and examined in his room. Patient has no complaints of pain or trouble breathing. He is still refusing treatment for his Syphillis. Spoke with patient at length about his need for his PO medication. Objective - Vital Signs/Intake and Output Vital Signs (last 24 hours): Temp Pulse Resp BP Pulse Ox 98.2 F 64 20 111/57 L 98 04/11/17 06:00 04/11/17 06:00 04/11/17 06:00 04/11/17 06:00 04/10/17 23:31 Intake and Output: 04/10/17 04/11/17 18:59 06:59 Intake Total 380 200 Balance 380 200 - Medications Medications: Current Medications Doxycycline Hyclate (Doryx) 100 mg PO BID [facility] Stop: 04/23/17 23:55 Last Admin: 04/10/17 17:34 Dose: 100 mg Ferrous Sulfate (Feosol) 325 mg PO DAILY [facility] Last Admin: 04/10/17 09:47 Dose: 325 mg Folic Acid (Folic Acid) 1 mg PO DAILY [facility] Last Admin: 04/10/17 09:47 Dose: 1 mg Lactulose (Enulose) 30 gm PO TID [facility] Last Admin: 04/10/17 17:44 Dose: Not Given Neomycin Sulfate (Neomycin Tab) 500 mg PO Q6 [facility] Last Admin: 04/11/17 05:45 Dose: 500 mg Pantoprazole Sodium (Protonix Ec Tab) 40 mg PO DAILY [facility] Last Admin: 04/10/17 09:48 Dose: 40 mg Pneumococcal Polyvalent Vaccine (Pneumovax 23 Vaccine) 0.5 ml IM .ONCE ONE Stop: 04/11/17 10:01 Propranolol HCl (Inderal) 10 mg PO TID [facility] Last Admin: 04/10/17 17:34 Dose: 10 mg Rifaximin (Xifaxan) 550 mg PO BID [facility] Last Admin: 04/10/17 17:34 Dose: 550 mg Spironolactone (Aldactone) 25 mg PO DAILY [facility] Last Admin: 04/10/17 09:46 Dose: 25 mg Thiamine HCl (Vitamin B1 Tab) 100 mg PO DAILY [facility] Last Admin: 04/10/17 09:48 Dose: 100 mg Torsemide (Demadex) 10 mg PO DAILY [facility] Last Admin: 04/10/17 09:46 Dose: 10 mg - Labs Labs: 04/08/17 02:59 04/08/17 02:59 PT 20.6 SECONDS (9.7-12.2) H 04/08/17 14:09 INR 1.8 04/08/17 14:09 APTT 51 SECONDS (21-34) H D 04/08/17 14:09 - Constitutional Appears: Non-toxic, Unkempt - Eye Exam Eye Exam: absent: Scleral icterus - Respiratory Exam Respiratory Exam: absent: Clear to Ausculation Bilateral, Rales, Rhonchi, Wheezes - Cardiovascular Exam Cardiovascular Exam: REGULAR RHYTHM, RRR, +S1, +S2. absent: Gallop, Rubs - GI/Abdominal Exam GI & Abdominal Exam: Distended, Normal Bowel Sounds. absent: Tenderness - Extremities Exam Extremities Exam: Pedal Edema - Psychiatric Exam Psychiatric exam: Agitated - Skin Skin Exam: Normal Color, Pallor Assessment and Plan - Assessment and Plan (Free Text) Assessment: Assessment: 57yo M admitted for ascites 2/2 to liver failure Ascites 2/2 to liver failure 04/11: Pericentesis yesterday, he is still on laculose, Duretics and Inderol as well. Follow up Dr. Jossue leone. Was going to discharge patient however it was held due to social reasons. no abdominal pain, no fevers/chills, awaiting fluid analysis -patient is otherwise ANOx3 -lactulose 30mg TID and Rifamixin BID for hyperammonia; down from admission -f/u fluid analysis; if cloudy/ more than 250PMN or bacteria will treat with ceftriaxone 2g daily for SBP -patient is hepatitis C positive; will need GI followup -MELD score 26; 19.6% chance of 3 month mortality; patient will need GI followup -spironolactone and propanolol for prophylaxis -control BP -Patient was advised to follow up with Dr. Lee in the past for GI followup; Dr. Marcum on consult for this admission; appreciate recs Microscopic Hematuria re-ordering UA again today; was +3 positive for blood on admission -consider outpatient urological followup for hematuria Chronic Anemia 04/11: Stable Hbg 7.5 on admission will follow CKD 04/11: Stable. GFR 40; previous admission was 36 -avoid nephrotoxic agents Untreated Syphilis 04/11: Patient refusing treatment RPR and FTA-ABS were positive; on last admission patient did not want to stay for FTA-ABS results and never followed up in the neighborhood clinic -will give 1.2million units in each buttock penicillin -will need to follow up titers in 6-8 weeks for treatment Meningioma -patient declined neurosurgical intervention last time as well and on this admission -will consult palliative care for POLST/goals of care while in the hospital Prophylaxis -Pepcid -SCD
[2017-04-11 07:29] LABS: IRON 50 ug/dL (49-181)
--- NOTE | 2017-04-11 07:33 | PN ---
DATE: LOCATION: Room 358, bed B. SUBJECTIVE: This is a 57-year-old male, seen and examined in rounds without significant clinical changes. Had been very difficult to be treated or receiving any medication. The patient apparently also started on penicillin G injection due to his syphilis infection. The patient refused. The entire chart is reviewed including but not limited to the most recent lab and radiology study results, current and pervious medication lists, current and previous medical events . Case discussed with his staff. PHYSICAL EXAMINATION: Showed no new significant clinical changes. IMPRESSION: 1. Alcoholism with alcoholic liver disease. 2. Syphilis infection. 3. Mild hepatic encephalopathy, gradually improving. 4. Known history of anemia, hypertension, and severe anxiety syndrome. 5. Portal hypertension. SUGGESTIONS: 1. Continue current management. 2. Aggressive GI workup in the meantime, the patient refused. Further recommendations to follow. Yael Archibald MD
[2017-04-11 07:41] LABS: POTASSIUM 4.7 mmol/L (3.6-5.2)
[2017-04-11 07:43] LABS: ALB/GLOB RATIO 0.4 (1.0-2.1); BILIRUBIN,TOTAL 1.3 mg/dL (0.2-1.3); CALCIUM 7.4 mg/dl (8.6-10.4); TOTAL PROTEIN 5.6 g/dL (6.3-8.3)
[2017-04-11 08:22] LABS: FOLATE 16.9 ng/mL
[2017-04-11] MEDS: Pantoprazole 40 mg EC Tab PO SCH (09:47)
[2017-04-11] MEDS ORDERED: Pneumococcal 23-Valent Vaccine IM ONE (10:00)
--- NOTE | 2017-04-11 12:40 | PN ---
LOCATION: 358, bed B. SUBJECTIVE: This is a 57-year-old male, seen and examined early IN rounds without significant clinical changes or reported active bleeding, who is refusing blood workup. Very poorly cooperative during the physical examination. Case discussed with the staff in the floor. Finally, the patient agreed for blood withdrawal and the most recent lab result showed hemoglobin of 8.3, hematocrit 23.6 with platelet count of 72 with BUN of 46, creatinine 2.0 with blood glucose level of 112, calcium 7.4 with low total protein of 5.6 and albumin 1.7. His alpha-fetoprotein is still elevated to 83 with increased CEA level to 4. Abdominal paracentesis with invasive radiology staff done with removal of some ascitic fluid of about 9.5 liters without reported complication under ultrasound. PHYSICAL EXAMINATION: GENERAL: A 57-year-old male. VITAL SIGNS: Afebrile with pulse of 62, respiratory rate of 20 to 22 with blood pressure of 110/54. HEENT: Showed pale, dry oral mucous membranes with nonicteric sclerae. LUNGS: Few scattered crepitation, decreased air entry at bases. HEART: Positive S1 and S2. ABDOMEN: Soft with less distention Bowel sounds are hypoactive. No mass or organomegaly. No rebound tenderness or guarding. RECTAL: The patient refused. EXTREMITIES: Lower extremity has mild edematous changes. IMPRESSION: 1. Abnormal liver function test with possible liver cirrhosis and evidence of portal hypertension. 2. Ascites, status post ultrasound-guided abdominal paracentesis. 3. Syphilis infection by recent history and lab results. 4. Elevated alpha-fetoprotein, to rule out possible hepatic neoplastic lesion. 5. Mild hepatic encephalopathy, mildly improving. 6. Known history of hypertension, severe anxiety syndrome. 7. Anemia, most likely secondary to above, to rule out gastrointestinal blood loss, upper versus lower; the patient is refusing endoscopic evaluation of the gastrointestinal tract. SUGGESTION: 1. Continue current management. 2. Antireflux measure. 3. Barium enema to be followed by upper GI with small bowel follow-through. Further recommendation to follow and MRCP to rule out possible hepatic lesion to be scheduled. Yael Archibald MD cc: Yael Archibald MD
--- NOTE | 2017-04-11 13:42 | CP.PCM.CON ---
History of Present Illness - History of Present Illness History of Present Illness: Palliative consult Requested by Dano KEYS Reason: Goals of care discussion Patent is 57 yo male admitted from home with distended abdomen and abdominal pain. Just 10 days ago, patient was treated here in ED with same symptoms. patient has a known hx of liver cirrhosis. On patient underwent paracentesis and 9.5 L of ascites were removed. Patient is startted on Neomycin , and Doxicilcine for treatment of Syphilis. PMH: HTN, anemia, anxiety, syphillis, mningima Soc. Hx: lives alone, homeless, denies any family members Fam. hx: denies Review of Systems - Constitutional Constitutional: Weight Loss, Weakness - EENT Eyes: absent: As Per HPI, Blind Spots, Blurred Vision, Change in Vision, Decreased Night Vision, Diplopia, Discharge, Dry Eye, Exophthalmos, Floaters, Irritation, Itchy Eyes, Loss of Peripheral Vision, Pain, Photophobia, Requires Corrective Lenses, Sees Flashes, Spots in Vision, Tunnel Vision, Other Visual Disturbances, Loss of Vision, Other Ears: absent: As Per HPI, Decreased Hearing, Ear Discharge, Ear Pain, Tinnitus, Abnormal Hearing, Disequilibrium, Dizziness, Other Nose/Mouth/Throat: absent: As Per HPI, Epistaxis, Nasal Congestion, Nasal Discharge, Nasal Obstruction, Nasal Trauma, Nose Pain, Post Nasal Drip, Sinus Pain, Sinus Pressure, Bleeding Gums, Change in Voice, Dental Pain, Dry Mouth, Dysphagia, Halitosis, Hoarsness, Lip Swelling, Mouth Lesions, Mouth Pain, Odynophagia, Sore Throat, Throat Swelling, Tongue Swelling, Facial Pain, Neck Pain, Neck Mass, Other - Cardiovascular Cardiovascular: Dyspnea, Pedal Edema - Respiratory Respiratory: Dyspnea on Exertion - Gastrointestinal Gastrointestinal: Abdominal Pain, Bloating - Genitourinary Genitourinary: absent: As Per HPI, Change in Urinary Stream, Difficulty Urinating, Dysuria, Flank Pain, Hematuria, Pyuria, Nocturia, Urinary Incontinence, Urinary Frequency, Urinary Hesitance, Urinary Urgency, Voiding Freq/Small Amts, Freq UTI, Hx Renal/Bladder Calculi, Hx /Renal Surgery, Bladder Distension, Other - Reproductive: Male Additional comments: Hx of Syphillis - Musculoskeletal Musculoskeletal: Muscle Weakness - Integumentary Integumentary: Dry Skin - Neurological Neurological: absent: As Per HPI, Abnormal Gait, Abnormal Hearing, Abnormal Movements, Abnormal Speech, Behavioral Changes, Burning Sensations, Confusion, Convulsions, Disequilibrium, Dizziness, Numbness, Focal Weakness, Frequent Falls , Headaches, Lack of Coordination, Loss of Vision, Memory Loss, Paresthesias, Radicular Pain, Restless Legs, Sensory Deficit, Syncope, Tingling, Tremor, Vertigo, Weakness, Other Visual Disturbances, Other - Psychiatric Psychiatric: absent: As Per HPI, Abnormal Sleep Pattern, Anhedonia, Anxiety, Auditory Hallucinations, Behavioral Changes, Change in Appetite, Change in Libido, Confusion, Depression, Difficulty Concentrating, Hallucinations, Homicidal Ideation, Hopelessness, Irritability, Memory Loss, Mood Swings, Panic Attacks, Paranoia, Suicidal Ideation, Visual Hallucinations, Tactile Hallucinations, Other - Endocrine Endocrine: absent: As Per HPI, Change in Body Appearance, Change in Libido, Cold Intolorance, Deepening of Voice, Excessive Sweating, Fatigue, Flushing, Heat Intolorance, Increase in Ring/Shoe/Hat Size, Palpitations, Polydipsia, Polyphagia, Polyuria, Other - Hematologic/Lymphatic Hematologic: absent: As Per HPI, Easy Bleeding, Easy Bruising, Lymphadenopathy, Other Past Patient History - Infectious Disease Hx of Infectious Diseases: None - Past Medical History & Family History Past Medical History?: Yes - Past Social History Smoking Status: Light Smoker < 10 Cigarettes Daily - CARDIAC Hx Hypertension: Yes - PULMONARY Hx Respiratory Disorders: No - NEUROLOGICAL Hx Neurological Disorder: No - HEENT Hx HEENT Problems: No - RENAL Hx Chronic Kidney Disease: No - ENDOCRINE/METABOLIC Hx Endocrine Disorders: No - HEMATOLOGICAL/ONCOLOGICAL Hx Blood Disorders: Yes Hx Anemia: Yes - INTEGUMENTARY Hx Dermatological Problems: No - MUSCULOSKELETAL/RHEUMATOLOGICAL Hx Musculoskeletal Disorders: Yes Hx Falls: Yes - GASTROINTESTINAL Hx Gastrointestinal Disorders: Yes Other/Comment: ascites - GENITOURINARY/GYNECOLOGICAL Hx Genitourinary Disorders: No - PSYCHIATRIC Hx Psychophysiologic Disorder: Yes Hx Anxiety: Yes Hx Substance Use: No - SURGICAL HISTORY Hx Surgeries: No - ANESTHESIA Hx Anesthesia: Yes Hx Anesthesia Reactions: No Hx Malignant Hyperthermia: No Meds Home Medications: Home Medication List Medication Instructions Recorded Confirmed Type Ferrous Sulfate [Feosol] 325 mg PO DAILY #30 tab 04/11/17 Rx Folic Acid 1 mg PO DAILY #30 tab 04/11/17 Rx Lactulose [Enulose] 20 gm PO BID #60 udc 04/11/17 Rx Pantoprazole Sodium [Protonix] 40 mg PO DAILY #30 ect 04/11/17 Rx Spironolactone [Aldactone] 25 mg PO DAILY #30 tab 04/11/17 Rx Thiamine [Vitamin B1 Tab] 100 mg PO DAILY #30 tab 04/11/17 Rx Torsemide [Demadex] 10 mg PO DAILY #30 tab 04/11/17 Rx Allergies/Adverse Reactions: Allergies Allergy/AdvReac Type Severity Reaction Status Date / Time No Known Allergies Allergy Verified 04/08/17 00:40 - Medications Medications: Current Medications Doxycycline Hyclate (Doryx) 100 mg PO BID [facility] Stop: 04/23/17 23:55 Last Admin: 04/11/17 09:46 Dose: 100 mg Ferrous Sulfate (Feosol) 325 mg PO DAILY [facility] Last Admin: 04/11/17 09:47 Dose: 325 mg Folic Acid (Folic Acid) 1 mg PO DAILY [facility] Last Admin: 04/11/17 09:46 Dose: 1 mg Lactulose (Enulose) 30 gm PO TID [facility] Last Admin: 04/11/17 09:47 Dose: Not Given Neomycin Sulfate (Neomycin Tab) 500 mg PO Q6 [facility] Last Admin: 04/11/17 11:41 Dose: 500 mg Pantoprazole Sodium (Protonix Ec Tab) 40 mg PO DAILY [facility] Last Admin: 04/11/17 09:47 Dose: 40 mg Propranolol HCl (Inderal) 10 mg PO TID [facility] Last Admin: 04/11/17 09:47 Dose: 10 mg Rifaximin (Xifaxan) 550 mg PO BID [facility] Last Admin: 04/11/17 09:46 Dose: 550 mg Spironolactone (Aldactone) 25 mg PO DAILY [facility] Last Admin: 04/11/17 09:47 Dose: 25 mg Thiamine HCl (Vitamin B1 Tab) 100 mg PO DAILY [facility] Last Admin: 04/11/17 09:46 Dose: 100 mg Torsemide (Demadex) 10 mg PO DAILY [facility] Last Admin: 04/11/17 09:47 Dose: 10 mg Physical Exam - Constitutional Appears: Chronically Ill - Head Exam Head Exam: ATRAUMATIC, NORMAL INSPECTION, NORMOCEPHALIC - Eye Exam Eye Exam: EOMI, Normal appearance, PERRL Pupil Exam: NORMAL ACCOMODATION, PERRL - ENT Exam ENT Exam: Mucous Membranes Moist, Normal Exam - Neck Exam Neck exam: Positive for: Normal Inspection - Respiratory Exam Respiratory Exam: Decreased Breath Sounds, NORMAL BREATHING PATTERN - Cardiovascular Exam Cardiovascular Exam: REGULAR RHYTHM - GI/Abdominal Exam GI & Abdominal Exam: Distended, Firm, Hypoactive Bowel Sounds - Rectal Exam Rectal Exam: Deferred - Exam Exam: NORMAL INSPECTION - Extremities Exam Extremities exam: Positive for: pedal edema - Back Exam Back exam: NORMAL INSPECTION - Neurological Exam Neurological exam: Alert, CN II-XII Intact, Oriented x3 - Psychiatric Exam Psychiatric exam: Normal Affect, Normal Mood - Skin Skin Exam: Dry, Intact, Normal Color, Warm Results - Vital Signs Recent Vital Signs: Last Vital Signs Temp 98.4 F 04/11/17 08:26 Pulse 63 04/11/17 08:26 Resp 20 04/11/17 08:26 BP 117/54 L 04/11/17 08:26 Pulse Ox 99 04/11/17 08:26 - Labs Result Diagrams: 04/11/17 06:07 04/11/17 06:07 Labs: Laboratory Results - last 24 hr 04/11/17 04/11/17 04/11/17 06:07 06:07 06:07 WBC 10.2 RBC 2.35 L Hgb 8.3 L Hct 23.6 L MCV 100.1 H MCH 35.1 H MCHC 35.0 RDW 16.0 H Plt Count 72 L MPV 8.7 Neut % (Auto) 68.9 Lymph % (Auto) 19.3 L [place] % (Auto) 9.8 Eos % (Auto) 1.7 Baso % (Auto) 0.3 Neut # 7.1 H Lymph # 2.0 [place] # 1.0 H Eos # 0.2 Baso # 0.0 Sodium 133 Potassium 4.7 Chloride 110 H Carbon Dioxide 16 L Anion Gap 12 BUN 46 H Creatinine 2.0 H Est GFR ( Amer) 42 Est GFR (Non-Af Amer) 35 Random Glucose 112 H Calcium 7.4 L Iron 50 TIBC 111 L % Saturation 45 Total Bilirubin 1.3 AST 43 ALT 35 Alkaline Phosphatase 72 Total Protein 5.6 L Albumin 1.7 L D Globulin 3.9 Albumin/Globulin Ratio 0.4 L Vitamin B12 857 Folate 16.9 Assessment & Plan - Assessment and Plan (Free Text) Assessment: Palliative consult No Advance Directive on chart, PPS 60% I reviewed medical charts, all diagnostic studies, examined and interviwed patient in the bed. Patient is alert, oriented X 3 in no acute distress, S/P paracentesis yesterday. Skin is pale and dry. Hb 8.3. Breath sounds diminished, denies SOB. Abdomen is distended, still firm, bowel sounds are distant. Reports dull abdominal pain. There is pedal edema present. Goals of care discussed. Patient admits to being homeless and the housing is his biggest concern. During our discussion about his condition, patient did not mention his Hx. of Syphilis. I elicited his values and he seemed to be indifferent to what future holds. Code status discussed. I presented patient with POLST. He chose DNR/DNI. Patient stated that he " Does not think " his condition will get worse, but if does , he would not want his life to be prolonged by life support. Patient prefers to be allowed natural if his condition was seen terminal by the Doctors. I further reinforced teaching about regular medication use and asked him not to refuse the meds in the future as it could influence his health. He stated understanding and agreed. Impression * Chronically ill man with significant ascites from liver cirrhosis * patient has poor insight in his condition and believes his health " will not get worse" * Patient does not like discussion about his STD * Lack of housing presents existential issues for this patient * Lack of family support Suggestion * DNR/DNI * POLST on chart * Symptoms management * Discharge planing- patient will have to go to a alf , most likely * Reinforce the need for antibiotic treatement on admission and refer to [facility] for further assistance
--- NOTE | 2017-04-12 06:55 | CP.PCM.PN ---
Subjective - Date & Time of Evaluation Date of Evaluation: 04/12/17 Time of Evaluation: 09:40 - Subjective Subjective: Dr. Deng note: Patient is a 57 year old male with alcoholic liver cirrhosis, Hep C, Syphylis is post pericentesis. He was due for discharge yesterday however patient is having problems with urinary and bowel incontinence and refusing placement to a homeless residential. In the past he has refused placement in care home, he now states he would like care home placement. Objective - Vital Signs/Intake and Output Vital Signs (last 24 hours): Temp Pulse Resp BP Pulse Ox 98.1 F 61 20 119/58 L 97 04/12/17 00:00 04/12/17 00:00 04/12/17 00:00 04/12/17 00:00 04/12/17 00:00 Intake and Output: 04/11/17 04/12/17 18:59 06:59 Intake Total 180 Balance 180 - Medications Medications: Current Medications Doxycycline Hyclate (Doryx) 100 mg PO BID [facility] Stop: 04/23/17 23:55 Last Admin: 04/11/17 17:44 Dose: 100 mg Ferrous Sulfate (Feosol) 325 mg PO DAILY [facility] Last Admin: 04/11/17 09:47 Dose: 325 mg Folic Acid (Folic Acid) 1 mg PO DAILY [facility] Last Admin: 04/11/17 09:46 Dose: 1 mg Lactulose (Enulose) 20 gm PO DAILY [facility] Neomycin Sulfate (Neomycin Tab) 500 mg PO Q6 [facility] Last Admin: 04/12/17 05:35 Dose: 500 mg Pantoprazole Sodium (Protonix Ec Tab) 40 mg PO DAILY [facility] Last Admin: 04/11/17 09:47 Dose: 40 mg Propranolol HCl (Inderal) 10 mg PO TID [facility] Last Admin: 04/11/17 17:45 Dose: 10 mg Rifaximin (Xifaxan) 550 mg PO BID [facility] Last Admin: 04/11/17 17:45 Dose: 550 mg Spironolactone (Aldactone) 25 mg PO DAILY [facility] Last Admin: 04/11/17 09:47 Dose: 25 mg Thiamine HCl (Vitamin B1 Tab) 100 mg PO DAILY [facility] Last Admin: 04/11/17 09:46 Dose: 100 mg Torsemide (Demadex) 10 mg PO DAILY [facility] Last Admin: 04/11/17 09:47 Dose: 10 mg - Labs Labs: 04/11/17 06:07 04/11/17 06:07 PT 20.6 SECONDS (9.7-12.2) H 04/08/17 14:09 INR 1.8 04/08/17 14:09 APTT 51 SECONDS (21-34) H D 04/08/17 14:09 - Constitutional Appears: Unkempt, Chronically Ill - Eye Exam Eye Exam: Scleral icterus Pupil Exam: NORMAL ACCOMODATION - Respiratory Exam Respiratory Exam: Decreased Breath Sounds, Clear to Ausculation Bilateral. absent: Rhonchi, Wheezes - GI/Abdominal Exam GI & Abdominal Exam: Distended, Tenderness, Normal Bowel Sounds, Organomegaly. absent: Soft - Extremities Exam Extremities Exam: Pedal Edema. absent: Normal Inspection, Tenderness - Psychiatric Exam Psychiatric exam: Anxious - Skin Skin Exam: Pallor. absent: Normal Color Assessment and Plan - Assessment and Plan (Free Text) Assessment: Assessment: 57yo M admitted for ascites 2/2 to liver failure, post pericentesis, refusing to go a residential, has multiple chronic health problems including liver failure and anemia. Working with case managment for strategy specialist care, possible placement to care home. Ascites 2/2 to liver failure 04/12: Patient may go to a care home which will help for his longterm care. Will continue with current PO medications, per pallative care nurse patient is now DNR/DNI. 04/11: Pericentesis yesterday, he is still on laculose, Duretics and Inderol as well. Follow up Dr. Jossue leone. Was going to discharge patient however it was held due to social reasons. no abdominal pain, no fevers/chills, awaiting fluid analysis -patient is otherwise ANOx3 -lactulose 30mg TID and Rifamixin BID for hyperammonia; down from admission -f/u fluid analysis; if cloudy/ more than 250PMN or bacteria will treat with ceftriaxone 2g daily for SBP -patient is hepatitis C positive; will need GI followup -MELD score 26; 19.6% chance of 3 month mortality; patient will need GI followup -spironolactone and propanolol for prophylaxis -control BP -Patient was advised to follow up with Dr. Lee in the past for GI followup; Dr. Marcum on consult for this admission; appreciate recs Microscopic Hematuria re-ordering UA again today; was +3 positive for blood on admission -consider outpatient urological followup for hematuria Chronic Anemia 04/11: Stable Hbg 7.5 on admission will follow CKD 04/11: Stable. GFR 40; previous admission was 36 -avoid nephrotoxic agents Untreated Syphilis 04/12: Patient is taking the PO doxycyline which will hopefully continue with after discharge if placed in care home. 04/11: Patient refusing treatment RPR and FTA-ABS were positive; on last admission patient did not want to stay for FTA-ABS results and never followed up in the neighborhood clinic -will give 1.2million units in each buttock penicillin -will need to follow up titers in 6-8 weeks for treatment Meningioma -patient declined neurosurgical intervention last time as well and on this admission -will consult palliative care for POLST/goals of care while in the hospital Prophylaxis -Pepcid -SCD
[2017-04-12] MEDS: Pantoprazole 40 mg EC Tab PO SCH (09:35)
[2017-04-12 11:18] LABS: BASO # 0.1 K/uL (0.0-0.2); BASO % 0.6 % (0.0-2.0); EOS # 0.3 K/uL (0.0-0.7); EOS % 2.9 % (0.0-4.0); HEMATOCRIT 23.8 % (35.0-51.0); LYMPH # 2.2 K/uL (1.0-4.3); LYMPH % 22.5 % (20.0-40.0); MEAN CELL VOLUME 100.5 fL (80.0-94.0); MEAN CORPUSCULAR HEMOGLOBIN 34.1 pg (27.0-31.0); MEAN CORPUSCULAR HGB CONC 33.9 g/dL (33.0-37.0); MEAN PLATELET VOLUME 8.9 fL (7.2-11.7); MONO # 1.2 K/uL (0.0-0.8); MONO % 12.1 % (0.0-10.0); WHITE BLOOD COUNT 9.6 K/uL (4.8-10.8)
[2017-04-12 11:38] LABS: PHOSPHOROUS 3.5 mg/dL (2.5-4.5); POTASSIUM 4.9 mmol/L (3.6-5.2)
[2017-04-12 11:39] LABS: MAGNESIUM 1.4 mg/dL (1.6-2.3)
[2017-04-12 11:40] LABS: ALB/GLOB RATIO 0.4 (1.0-2.1); BILIRUBIN,TOTAL 1.3 mg/dL (0.2-1.3)
[2017-04-12 11:41] LABS: CALCIUM 7.4 mg/dl (8.6-10.4)
[2017-04-12] MEDS: Magnesium Sulfate 1 gm in D5W 1 GM/100 ML BAG IVPB SCH ×2 (12:41→13:21)
[2017-04-12] MEDS ORDERED: Magnesium Oxide 400 mg Tab UD PO ONE (12:45)
--- NOTE | 2017-04-12 16:43 | PN ---
LOCATION: 358, bed B. SUBJECTIVE: This is a 57-year-old male in a status of DNR and DNI, seen and examined on rounds without significant clinical changes, have been refusing an IV line to be reinserted, difficult to communicate with. The patient had less complaint of abdominal pain and/or distention per centesis. The entire chart is reviewed including but not limited to the most recent lab and the radiology study results, current and previous medication list, current and previous medical events. LABORATORY DATA: Today's lab showed hemoglobin 8.1, hematocrit 23.8 with thrombocytopenia of 74 with CO2 content of 18 indicative of metabolic acidosis. BUN is 42 and creatinine 1.8 still elevated with low magnesium 1.4, low calcium 7.4. His ammonia level was subsequently dropped to 62 before. The patient still have very low albumin of 1.7 and low total protein 6.0. PHYSICAL EXAMINATION: GENERAL: A 57-year-old male. VITAL SIGNS: Afebrile with pulse of 60, respiratory rate 20 to 22 with blood pressure of 110/52. HEENT: Showed pale, dry oral mucous membrane. Nonicteric sclerae. LUNGS: Few scattered crepitation, decreased air entry at bases. HEART: Positive S1 and S2. ABDOMEN: Soft. Bowel sounds are present with small amount of ascites. No mass or organomegaly. No rebound tenderness or guarding. RECTAL: The patient refused. EXTREMITIES: Mild lower extremity edematous changes. No clubbing or cyanosis. NEUROLOGIC: No reported new neurological deficits, sensory or motor. It has to be mention that the patient has less abdominal pain and less distention. IMPRESSION: 1. Evidence of liver cirrhosis, portal hypertension and ascites, with status post abdominal paracentesis. 2. Depression. 3. Anemia, most likely secondary to chronic disease. 4. Dehydration. 5. Syphilis infection by history. 6. Elevated alpha fetoprotein to rule out possible hepatic neoplastic lesion. 7. Known history of hypertension. 8. Recent history of mild hepatic encephalopathy, gradually improving. SUGGESTION: 1. Agree with your plan. 2. treatment. 3. It has to be mention that the patient has been refusing aggressive gastrointestinal workup so far and the further recommendation to follow. Yael Archibald MD cc: Yael Archibald MD
[2017-04-12 16:49] VITALS: RESP 20
[2017-04-13 07:53] LABS: BASO # 0.1 K/uL (0.0-0.2); BASO % 0.6 % (0.0-2.0); EOS # 0.3 K/uL (0.0-0.7); EOS % 3.1 % (0.0-4.0); HEMATOCRIT 24.4 % (35.0-51.0); LYMPH # 2.1 K/uL (1.0-4.3); LYMPH % 20.7 % (20.0-40.0); MEAN CORPUSCULAR HEMOGLOBIN 34.4 pg (27.0-31.0); MEAN PLATELET VOLUME 8.8 fL (7.2-11.7); MONO # 1.1 K/uL (0.0-0.8); MONO % 10.4 % (0.0-10.0); RED CELL DISTRIBUTION WIDTH 16.2 % (11.5-14.5); WHITE BLOOD COUNT 10.3 K/uL (4.8-10.8)
[2017-04-13 08:13] LABS: POTASSIUM 4.6 mmol/L (3.6-5.2)
[2017-04-13 08:15] LABS: ALB/GLOB RATIO 0.4 (1.0-2.1); BILIRUBIN,TOTAL 1.1 mg/dL (0.2-1.3); TOTAL PROTEIN 5.8 g/dL (6.3-8.3)
[2017-04-13 08:16] LABS: MAGNESIUM 1.4 mg/dL (1.6-2.3)
[2017-04-13 08:57] LABS: GLUCOSE PERITONEAL FLUID 108 mg/dL; LDH PERITONEAL FLUID 189 U/L (<63); TOTAL PROTEIN PERITONEAL FLUID <3.0 g/dL
[2017-04-13] MEDS: Pantoprazole 40 mg EC Tab PO SCH (09:28)
[2017-04-13] MEDS ORDERED: Magnesium Oxide 400 mg Tab UD PO SCH (10:00)
--- NOTE | 2017-04-13 11:04 | CP.PCM.PN ---
Subjective - Date & Time of Evaluation Date of Evaluation: 04/13/17 Time of Evaluation: 11:03 - Subjective Subjective: Patient seen and examined; no acute complaints; going to long-term today - Constitutional Appears: Unkempt, Chronically Ill - Eye Exam Eye Exam: Scleral icterus Pupil Exam: NORMAL ACCOMODATION - Respiratory Exam Respiratory Exam: Decreased Breath Sounds, Clear to Ausculation Bilateral. absent: Rhonchi, Wheezes - GI/Abdominal Exam GI & Abdominal Exam: Distended, Tenderness, Normal Bowel Sounds, Organomegaly. absent: Soft - Extremities Exam Extremities Exam: Pedal Edema. absent: Normal Inspection, Tenderness - Psychiatric Exam Psychiatric exam: Anxious - Skin Skin Exam: Pallor. absent: Normal Color Assessment and Plan - Assessment and Plan (Free Text) Assessment: Assessment: 57yo M admitted for ascites 2/2 to liver failure, post pericentesis, refusing to go a jail, has multiple chronic health problems including liver failure and anemia. Working with case managment for fpc care, possible placement to long-term. Ascites 2/2 to liver failure 04/12: Patient may go to a long-term which will help for his long term care social worker care. Will continue with current PO medications, per pallative care nurse patient is now DNR/DNI. 04/11: Pericentesis yesterday, he is still on laculose, Duretics and Inderol as well. Follow up Dr. Jossue leone. Was going to discharge patient however it was held due to social reasons. no abdominal pain, no fevers/chills, awaiting fluid analysis -patient is otherwise ANOx3 -lactulose 30mg TID and Rifamixin BID for hyperammonia; down from admission -f/u fluid analysis; if cloudy/ more than 250PMN or bacteria will treat with ceftriaxone 2g daily for SBP -patient is hepatitis C positive; will need GI followup -MELD score 26; 19.6% chance of 3 month mortality; patient will need GI followup -spironolactone and propanolol for prophylaxis -control BP -Patient was advised to follow up with Dr. Lee in the past for GI followup; Dr. Marcum on consult for this admission; appreciate recs Microscopic Hematuria re-ordering UA again today; was +3 positive for blood on admission -consider outpatient urological followup for hematuria Chronic Anemia 04/11: Stable Hbg 7.5 on admission will follow CKD 04/11: Stable. GFR 40; previous admission was 36 -avoid nephrotoxic agents Untreated Syphilis 04/12: Patient is taking the PO doxycyline which will hopefully continue with after discharge if placed in long-term. 04/11: Patient refusing treatment RPR and FTA-ABS were positive; on last admission patient did not want to stay for FTA-ABS results and [facility] -will give 1.2million units in each buttock penicillin -will need to follow up titers in 6-8 weeks for treatment Meningioma -patient declined neurosurgical intervention last time as well and on this admission -will consult palliative care for POLST/goals of care while in the hospital Prophylaxis -Pepcid -SCD Objective - Vital Signs/Intake and Output Vital Signs (last 24 hours): Temp Pulse Resp BP Pulse Ox 97.1 F L 61 20 106/58 L 97 04/12/17 23:27 04/12/17 23:27 04/12/17 23:27 04/12/17 23:27 04/12/17 23:27 Intake and Output: 04/13/17 04/13/17 06:59 18:59 Intake Total 300 300 Balance 300 300 - Medications Medications: Current Medications Doxycycline Hyclate (Doryx) 100 mg PO BID [facility] Stop: 04/23/17 23:55 Last Admin: 04/13/17 09:27 Dose: 100 mg Ferrous Sulfate (Feosol) 325 mg PO DAILY [facility] Last Admin: 04/13/17 09:27 Dose: 325 mg Folic Acid (Folic Acid) 1 mg PO DAILY [facility] Last Admin: 04/13/17 09:27 Dose: 1 mg Lactulose (Enulose) 20 gm PO DAILY [facility] Last Admin: 04/13/17 09:27 Dose: 20 gm Magnesium Oxide (Mag-Ox) 400 mg PO DAILY [facility] Last Admin: 04/13/17 09:28 Dose: 400 mg Neomycin Sulfate (Neomycin Tab) 500 mg PO Q6 [facility] Last Admin: 04/13/17 05:50 Dose: 500 mg Pantoprazole Sodium (Protonix Ec Tab) 40 mg PO DAILY [facility] Last Admin: 04/13/17 09:28 Dose: 40 mg Propranolol HCl (Inderal) 10 mg PO TID [facility] Last Admin: 04/13/17 09:27 Dose: 10 mg Rifaximin (Xifaxan) 550 mg PO BID [facility] Last Admin: 04/13/17 09:28 Dose: 550 mg Spironolactone (Aldactone) 25 mg PO DAILY [facility] Last Admin: 04/13/17 09:26 Dose: 25 mg Thiamine HCl (Vitamin B1 Tab) 100 mg PO DAILY [facility] Last Admin: 04/13/17 09:28 Dose: 100 mg Torsemide (Demadex) 10 mg PO DAILY [facility] Last Admin: 04/13/17 09:27 Dose: 10 mg - Labs Labs: 04/13/17 07:43 04/13/17 07:43 PT 20.6 SECONDS (9.7-12.2) H 04/08/17 14:09 INR 1.8 04/08/17 14:09 APTT 51 SECONDS (21-34) H D 04/08/17 14:09
[2017-04-13 16:14] VITALS: BP 111/54; PULSE 60; TEMP 98.3; O2SAT 98
--- NOTE | 2017-04-13 20:22 | PN ---
LOCATION: [facility], bed B. SUBJECTIVE: This is a 57 years old, thin, without significant new complaint or reported active bleeding with less abdominal distention and abdominal pain is negative. No reported chest pain or palpitation. No reported active bleeding. The entire chart is reviewed including but not limited to the most recent lab, the radiology study results, current and previous medication list, current and previous medical events. LABORATORY DATA: The patient is still having a hemoglobin of 8.3, hematocrit 24.4 with thrombocytopenia of 74 and sodium 131 with CO2 content of 15 indicative of metabolic acidosis. BUN is still elevated at 42 with elevated creatinine of 1.8 with low calcium 7.0, low magnesium 1.4 with low albumin of 1.7. The patient's AST and ALT are normal. PHYSICAL EXAMINATION: GENERAL: A 57 yeas old male, awake, alert, oriented. VITAL SIGNS: Afebrile, pulse of 64, respiratory rate 20 to 22, blood pressure of 108/58. HEENT: Showed pale, dry oral mucous membrane. Slight icteric sclerae bilaterally. HEART: Positive S1 and S2. ABDOMEN: Soft with mild distention. No mass or organomegaly. No rebound tenderness or guarding. NEUROLOGIC: No reported new neurological deficits, sensory or motor. EXTREMITIES: Lower extremity slight edematous changes. No clubbing or cyanosis. IMPRESSION: 1. Evidence of liver cirrhosis. 2. Portal hypertension with ascites to status post abdominal paracentesis. 3. Depression. 4. Dehydration, gradually improving. 5. Syphilis infection by history. 6. Anemia, secondary to above. 7. Known history of hypertension. 8. Mild hepatic encephalopathy, improving clinically. SUGGESTION: 1. Continue current management. 2. Repeat ammonia level. 3. The patient may need transfusion before discharged to home. Correct any underlying electrolyte imbalance. Yael Archibald MD cc: Yael Archibald MD
== END 2017-04-13 20:45 | DRG 202 ==
LOC: C.ER 00:34 → SUPCPDRO 00:34 → C.9E 03:21 → C.3T 04:42
PROVIDERS: ADMIT Internal Medicine Pulmonary Disease; ATTEND Internal Medicine Pulmonary Disease
PROC: 0W9G3ZZ Drainage of Peritoneal Cavity, Percutaneous Approach (ICD-10-PCS; principal; 2017-04-10)
PROC: BW40ZZZ Ultrasonography of Abdomen (ICD-10-PCS; 2017-04-10)
DX: K70.31 Alcoholic cirrhosis of liver with ascites (principal); K70.40 Alcoholic hepatic failure without coma; E87.2 Acidosis; K76.6 Portal hypertension; D69.59 Other secondary thrombocytopenia; E86.0 Dehydration; B19.20 Unspecified viral hepatitis C without hepatic coma; N18.9 Chronic kidney disease, unspecified; D63.8 Anemia in other chronic diseases classified elsewhere; F10.20 Alcohol dependence, uncomplicated; I12.9 Hypertensive chronic kidney disease with stage 1 through stage 4 chronic kidney disease, or unspecified chronic kidney disease; A53.9 Syphilis, unspecified; F32.9 Major depressive disorder, single episode, unspecified; D32.9 Benign neoplasm of meninges, unspecified; F17.210 Nicotine dependence, cigarettes, uncomplicated; Z66 Do not resuscitate; Z59.0 Homelessness

== ENCOUNTER 2017-05-06 14:06 | Inpatient (IN) | payer MEDICAID ==
--- NOTE | 2017-05-06 14:44 | C.PDOC ---
History Of Present Illness 57 year old male, with PMHx of chronic liver disease and Hepatitis C. S/P PARACENTESIS 05/05, presents to the ED via EMS after being sent from group home for evaluation of altered mental status and GI bleed for an unknown duration. Additional history is difficult to obtain secondary to patient's clinical condition. LIMITED DUE TO CLIN COND AMS, GI BLEED UNK DURATION. PMHx of chronic liver disease and Hepatitis C. S/P PARACENTESIS 05/05. ROS UTO EXAM MOD DIST NONTOXIC HEENT ANICTERIC NEURO AO2, NO FOCAL DEF RECTAL NO BRBPR REMAINDER NEG NO PRIOR positive guiac Time Seen by Provider: 05/06/17 14:23 Chief Complaint (Nursing): Altered Mental Status History Per: EMS History/Exam Limitations: Clinical Condition Onset/Duration Of Symptoms: Unknown Onset Of Symptoms: Cannot Confirm Onset Current Symptoms Are (Timing): Still Present Usual Baseline: Unknown Exacerbating Factor(s): Unknown Additional History Per: EMS, Shelter Past Medical History Reviewed: Historical Data, Nursing Documentation, Vital Signs Vital Signs: Last Vital Signs Temp 98 F 05/06/17 16:20 Pulse 86 05/06/17 16:20 Resp 18 05/06/17 16:20 BP 105/48 L 05/06/17 16:20 Pulse Ox 100 05/06/17 16:25 - Medical History PMH: Anemia, Anxiety, Arthritis, HTN Denies: Chronic Kidney Disease Surgical History: No Surg Hx - [facility] Procedures DRAINAGE OF PERITONEAL CAVITY, PERCUTANEOUS APPROACH (04/08/17) TRANSFUSE NONAUT RED BLOOD CELLS IN PERIPH VEIN, OPEN (02/19/17) TRANSFUSE NONAUT RED BLOOD CELLS IN PERIPH VEIN, PERC (03/02/17) ULTRASONOGRAPHY OF ABDOMEN (04/08/17) Family History: States: Unknown Family Hx - Social History Hx Alcohol Use: Yes Hx Substance Use: No - Immunization History Hx Tetanus Toxoid Vaccination: No Hx Influenza Vaccination: No Hx Pneumococcal Vaccination: No Review Of Systems Review Of Systems: ROS cannot be obtained secondary to pt's inabilty to answer questions. Physical Exam - Physical Exam Appears: Non-toxic, Other (in moderate distress ) Skin: Normal Color, Warm, Dry, Other (anticteric) Head: Atraumatic, Normacephalic Eye(s): bilateral: Normal Inspection Ear(s): Bilateral: Normal Nose: Normal, No Discharge Oral Mucosa: Moist Throat: Normal, No Erythema, No Exudate Neck: Supple Chest: Symmetrical, No Deformity, No Tenderness Cardiovascular: Rhythm Regular, No Murmur Respiratory: Normal Breath Sounds Rectal: No Other (bright red blood per rectum ) Extremity: Normal ROM, Capillary Refill Neurological/Psych: Other (alert and oritented x2, no focal deficits ) Gait: Unable To Assess ED Course And Treatment - Laboratory Results Result Diagrams: 05/06/17 15:24 05/06/17 15:24 ECG: Interpreted By Me ECG Rhythm: Sinus Rhythm ECG Interpretation: No Acute Changes Rate From EC O2 Sat by Pulse Oximetry: 100 (on RA) Pulse Ox Interpretation: Normal - Radiology CXR: Interpreted by Me CXR Interpretation: Yes: Other (L EFFUSION [facility] 05/04) Progress Note: Labs, CT Head, EKG, and CXR ordered and reviewed. Progress - Re-Evaluation Re-evaluation Note: 05/06/17 16:18 PER OLD RECORDS, PT PREV ADVISED OF ABN CT IN 01/2017 BUT HAD REFUSED ALL NEUROSURG EVAL 05/06/17 16:23 +BM NO BRB D/W DR CUEVAS AWARE OF ER FINDINGS. PENDING AMMONIA, GUIAC. WILL ADMIT ELEV WBC. CEFEPIME AND VANC 05/06/17 16:25 - Data Reviewed Data Reviewed: Lab, Diagnostic imaging, EKG, Old records Disposition Counseled Patient/Family Regarding: Studies Performed, Diagnosis - Disposition Disposition: HOSPITALIZED Disposition Time: 16:24 Condition: STABLE - POA Present On Arrival: None - Clinical Impression Clinical Impression: Hyperkalemia, Altered mental state, Elevated WBC count - Scribe Statement The provider has reviewed the documentation as recorded by the Scribe (Violeta Koroma) Provider Attestation: All medical record entries made by the Scribe were at my direction and personally dictated by me. I have reviewed the chart and agree that the record accurately reflects my personal performance of the history, physical exam, medical decision making, and the department course for this patient. I have also personally directed, reviewed, and agree with the discharge instructions and disposition. Decision To Admit - Pt Status Changed To: Hospital Disposition Of: Observation - . Bed Request Type: Telemetry Admitting Physician: Char Cuevas Patient Diagnosis: Hyperkalemia, Altered mental state, Elevated WBC count
--- NOTE | 2017-05-06 15:30 | RAD ---
PROCEDURE: CHEST RADIOGRAPH, 1 VIEW HISTORY: AMS COMPARISON: 05/04/2017. FINDINGS: LUNGS: The right lung is clear. Stable opacification of the left lower hemithorax. PLEURA: There is a persistent large left pleural effusion. No pneumothorax or right pleural fluid seen. CARDIOVASCULAR: The cardiomediastinal silhouette is stable. OSSEOUS STRUCTURES: No significant abnormalities. VISUALIZED UPPER ABDOMEN: Normal. OTHER FINDINGS: None. IMPRESSION: No change in large left pleural effusion with left lower lobe opacification which may represent atelectasis/ pneumonia/ mass in the left lower lobe. Follow-up is advised.
[2017-05-06 15:37] LABS: CHLORIDE 111 mmol/L (98-107); SODIUM 132 mmol/L (132-148)
[2017-05-06 15:39] LABS: GFR AFRICAN-AMERICAN 55
[2017-05-06 15:40] LABS: ALB/GLOB RATIO 0.4 (1.0-2.1); ALKALINE PHOSPHATASE 123 U/L (38-126); ALT/SGPT 37 U/L (21-72); AST/SGOT 60 U/L (17-59); BILIRUBIN,TOTAL 2.8 mg/dL (0.2-1.3); BLOOD UREA NITROGEN 25 mg/dL (9-20); CALCIUM 7.3 mg/dl (8.6-10.4); CARBON DIOXIDE 16 mmol/L (22-30); GLUCOSE,RANDOM 75 mg/dL (75-110); TOTAL PROTEIN 8.2 g/dL (6.3-8.3)
[2017-05-06] MEDS ORDERED: Sod Polystyrene Sulf 15 gm/60 ml Susp PO ONE (15:41)
[2017-05-06 15:42] LABS: INR 1.6
[2017-05-06 15:49] LABS: BASO % 0.3 % (0.0-2.0); EOS # 0.4 K/uL (0.0-0.7); EOS % 2.7 % (0.0-4.0); HEMATOCRIT 37.3 % (35.0-51.0); LYMPH # 1.9 K/uL (1.0-4.3); LYMPH % 13.5 % (20.0-40.0); MEAN CELL VOLUME 99.3 fL (80.0-94.0); MEAN CORPUSCULAR HEMOGLOBIN 32.9 pg (27.0-31.0); MEAN CORPUSCULAR HGB CONC 33.1 g/dL (33.0-37.0); MEAN PLATELET VOLUME 8.6 fL (7.2-11.7); MONO # 1.4 K/uL (0.0-0.8); MONO % 9.8 % (0.0-10.0); NRBC % 0.1 % (0.0-2.0); RED CELL DISTRIBUTION WIDTH 16.5 % (11.5-14.5)
[2017-05-06 15:50] LABS: VENOUS BLOOD GAS BASE EXCESS -5.2 mmol/L (0.0-2.0); VENOUS BLOOD GAS PCO2 37 mmHg (40-60); VENOUS BLOOD PH 7.34 (7.32-7.43)
[2017-05-06 15:51] LABS: WHITE BLOOD COUNT 14.3 K/uL (4.8-10.8)
--- NOTE | 2017-05-06 16:13 | CT ---
PROCEDURE: CT HEAD WITHOUT CONTRAST. HISTORY: AMS COMPARISON: None available. TECHNIQUE: Axial computed tomography images were obtained through the head/brain without intravenous contrast. Radiation dose: Total exam DLP = 943.03 mGy-cm. This CT exam was performed using one or more of the following dose reduction techniques: Automated exposure control, adjustment of the mA and/or kV according to patient size, and/or use of iterative reconstruction technique. FINDINGS: HEMORRHAGE: No intracranial hemorrhage. BRAIN: There is redemonstration of a 2.4 x 2.7 x 3.0 cm round hyperdense left extra-axial mass with its epicenter around the left sphenoid wing. There is redemonstration of extensive surrounding vasogenic edema extending to the frontal and parietal lobes. There is no evidence of midline shift or herniation. VENTRICLES: There is mild global parenchymal volume loss and proportionate enlargement of the ventricles and cortical sulci, slightly advanced for the patient's age. CALVARIUM: The skull base and calvarium are normal. PARANASAL SINUSES: Predominantly clear. MASTOID AIR CELLS: Predominantly clear. OTHER FINDINGS: None. IMPRESSION: Redemonstration of presumable left sphenoid wing meningioma measuring approximately 2.4 x 2.7 x 3.0 cm with extensive surrounding vasogenic edema extending to the frontal and parietal lobes. No evidence of midline shift or herniation.
[2017-05-06] MEDS ORDERED: Sod Polystyrene Sulf 15 gm/60 ml Susp ONE (16:16)
[2017-05-06] MEDS ORDERED: Vancomycin 1 gm/NS 200 ml 1 GM/200 ML BAG IVPB ONE (17:00)
[2017-05-06] MEDS ORDERED: Cefepime IV 1 gm in Dextrose 1 GM/50 ML BAG IV ONE (17:00)
[2017-05-06 21:28] LABS: RBC URINE 39 /hpf (0-3); URINE BACTERIA RARE (<OCC); URINE BILIRUBIN NEGATIVE (NEGATIVE); URINE BLOOD 3+ (NEGATIVE); URINE COLOR Amber (YELLOW); URINE GLUCOSE (UA) NORMAL (Normal); URINE HYALINE CAST 0-2 /lpf (0-2); URINE KETONE TRACE mg/dL (NEGATIVE); URINE LEUKOCYTE ESTERASE NEG Leu/uL (Negative); URINE PROTEIN NEGATIVE (NEGATIVE); URINE UROBILINOGEN NORMAL mg/dL (0.2-1.0); WBC URINE 3 /hpf (0-5)
[2017-05-07] MEDS: Vancomycin 750mg/D5W 150 ml 150 ML IVPB SCH ×2 (05:24→18:06)
[2017-05-07 07:46] LABS: BASO % 0.4 % (0.0-2.0); EOS # 0.4 K/uL (0.0-0.7); LYMPH # 1.7 K/uL (1.0-4.3); WHITE BLOOD COUNT 11.9 K/uL (4.8-10.8)
[2017-05-07 07:57] LABS: POTASSIUM 4.2 mmol/L (3.6-5.2)
[2017-05-07 08:00] LABS: ALB/GLOB RATIO 0.4 (1.0-2.1); BILIRUBIN,TOTAL 2.2 mg/dL (0.2-1.3); CALCIUM 7.2 mg/dl (8.6-10.4)
[2017-05-07 09:13] LABS: EOS % 3.6 % (0.0-4.0); HEMATOCRIT 32.5 % (35.0-51.0); LYMPH % 14.2 % (20.0-40.0); MEAN CELL VOLUME 100.1 fL (80.0-94.0); MEAN PLATELET VOLUME 9.2 fL (7.2-11.7); MONO % 8.7 % (0.0-10.0); NRBC % 0.2 % (0.0-2.0); RED CELL DISTRIBUTION WIDTH 16.7 % (11.5-14.5)
--- NOTE | 2017-05-07 16:19 | CP.PCM.CON ---
History of Present Illness - History of Present Illness History of Present Illness: 57 year old male, with PMHx of chronic liver disease and Hepatitis C. S/P PARACENTESIS 05/05, presents to the ED via EMS after being sent from long-term for evaluation of altered mental status and GI bleed for an unknown duration. Additional history is difficult to obtain secondary to patient's clinical condition. AMS, GI BLEED UNK DURATION. PMHx of chronic liver disease and Hepatitis C. S/P PARACENTESIS 05/05. - Medical History PMH: Anemia, Anxiety, Arthritis, HTN Denies: Chronic Kidney Disease Surgical History: No Surg Hx - [facility] Procedures DRAINAGE OF PERITONEAL CAVITY, PERCUTANEOUS APPROACH (04/08/17) TRANSFUSE NONAUT RED BLOOD CELLS IN PERIPH VEIN, OPEN (02/19/17) TRANSFUSE NONAUT RED BLOOD CELLS IN PERIPH VEIN, PERC (03/02/17) ULTRASONOGRAPHY OF ABDOMEN (04/08/17) Review of Systems - Review of Systems Systems not reviewed;Unavailable: Altered Mental Status - Constitutional Constitutional: As Per HPI - EENT Eyes: absent: As Per HPI, Blind Spots, Blurred Vision, Change in Vision, Decreased Night Vision, Diplopia, Discharge, Dry Eye, Exophthalmos, Floaters, Irritation, Itchy Eyes, Loss of Peripheral Vision, Pain, Photophobia, Requires Corrective Lenses, Sees Flashes, Spots in Vision, Tunnel Vision, Other Visual Disturbances, Loss of Vision, Other Ears: absent: As Per HPI, Decreased Hearing, Ear Discharge, Ear Pain, Tinnitus, Abnormal Hearing, Disequilibrium, Dizziness, Other Nose/Mouth/Throat: absent: As Per HPI, Epistaxis, Nasal Congestion, Nasal Discharge, Nasal Obstruction, Nasal Trauma, Nose Pain, Post Nasal Drip, Sinus Pain, Sinus Pressure, Bleeding Gums, Change in Voice, Dental Pain, Dry Mouth, Dysphagia, Halitosis, Hoarsness, Lip Swelling, Mouth Lesions, Mouth Pain, Odynophagia, Sore Throat, Throat Swelling, Tongue Swelling, Facial Pain, Neck Pain, Neck Mass, Other - Cardiovascular Cardiovascular: absent: As Per HPI, Acrocyanosis, Chest Pain, Chest Pain at Rest , Chest Pain with Activity, Claudication, Diaphoresis, Dyspnea, Dyspnea on Exertion, Edema, Irregular Heart Rhythm, Pain Radiating to Arm/Neck/Jaw, Leg Edema, Leg Ulcers, Lightheadedness, Orthopnea, Palpitations, Paroxysmal Nocturnal Dyspnea, Pedal Edema, Radiating Pain, Rapid Heart Rate, Slow Heart Rate, Syncope, Other - Respiratory Respiratory: absent: As Per HPI, Cough, Dyspnea, Hemoptysis, Dyspnea on Exertion , Wheezing, Snoring, Stridor, Pain on Inspiration, Chest Congestion, Excessive Mucous Production, Change in Mucous Color, Pain with Coughing, Other - Gastrointestinal Gastrointestinal: As Per HPI - Genitourinary Genitourinary: absent: As Per HPI, Change in Urinary Stream, Difficulty Urinating, Dysuria, Flank Pain, Hematuria, Pyuria, Nocturia, Urinary Incontinence, Urinary Frequency, Urinary Hesitance, Urinary Urgency, Voiding Freq/Small Amts, Freq UTI, Hx Renal/Bladder Calculi, Hx /Renal Surgery, Bladder Distension, Other - Musculoskeletal Musculoskeletal: absent: As Per HPI, Abnormal Gait, Arthralgias, Atrophy, Back Pain, Deformity, Joint Swelling, Limited Range of Motion, Loss of Height, Muscle Cramps, Muscle Weakness, Myalgias, Neck Pain, Numbness, Radiating Pain into Limb, Stiffness, Tingling, Other - Integumentary Integumentary: absent: As Per HPI, Acne, Alopecia, Bleeding Lesions, Change in Hair, Change in Nails, Change in Pigmentation, Changing Lesions, Dry Skin, Erythema, Furuncle, Hirsutism, Lesions, New Lesions, Non-Healing Lesions, Photosensitivity, Pruritus, Rash, Skin Pain, Skin Ulcer, Sores, Striae, Swelling , Unusual Bruising, Wounds, Jaundice, Other - Neurological Neurological: As Per HPI - Psychiatric Psychiatric: absent: As Per HPI, Abnormal Sleep Pattern, Anhedonia, Anxiety, Auditory Hallucinations, Behavioral Changes, Change in Appetite, Change in Libido, Confusion, Depression, Difficulty Concentrating, Hallucinations, Homicidal Ideation, Hopelessness, Irritability, Memory Loss, Mood Swings, Panic Attacks, Paranoia, Suicidal Ideation, Visual Hallucinations, Tactile Hallucinations, Other - Endocrine Endocrine: absent: As Per HPI, Change in Body Appearance, Change in Libido, Cold Intolorance, Deepening of Voice, Excessive Sweating, Fatigue, Flushing, Heat Intolorance, Increase in Ring/Shoe/Hat Size, Palpitations, Polydipsia, Polyphagia, Polyuria, Other - Hematologic/Lymphatic Hematologic: absent: As Per HPI, Easy Bleeding, Easy Bruising, Lymphadenopathy, Other Past Patient History - Infectious Disease Hx of Infectious Diseases: None - Past Medical History & Family History Past Medical History?: Yes - Past Social History Smoking Status: Former Smoker - CARDIAC Hx Hypertension: Yes - PULMONARY Hx Respiratory Disorders: No - NEUROLOGICAL Hx Neurological Disorder: No - HEENT Hx HEENT Problems: No - RENAL Hx Chronic Kidney Disease: No - ENDOCRINE/METABOLIC Hx Endocrine Disorders: No - HEMATOLOGICAL/ONCOLOGICAL Hx Anemia: Yes - INTEGUMENTARY Hx Dermatological Problems: No - MUSCULOSKELETAL/RHEUMATOLOGICAL Hx Arthritis: Yes Hx Falls: Yes - GASTROINTESTINAL Hx Gastrointestinal Disorders: Yes Other/Comment: ascites - GENITOURINARY/GYNECOLOGICAL Hx Genitourinary Disorders: No - PSYCHIATRIC Hx Anxiety: Yes Hx Substance Use: Yes - SURGICAL HISTORY Hx Surgeries: No - ANESTHESIA Hx Anesthesia: Yes Hx Anesthesia Reactions: No Hx Malignant Hyperthermia: No Meds Allergies/Adverse Reactions: Allergies Allergy/AdvReac Type Severity Reaction Status Date / Time No Known Allergies Allergy Verified 05/04/17 17:56 - Medications Medications: Current Medications Vancomycin HCl (Vancocin 750mg/D5w 150 Ml) 150 mls @ 100 mls/hr IVPB Q12H [facility] Last Admin: 05/07/17 05:24 Dose: 100 mls/hr Lactulose (Enulose) 30 gm PO TID [facility] Last Admin: 05/07/17 13:38 Dose: Not Given Pantoprazole Sodium (Protonix Inj) 40 mg IVP DAILY [facility] Last Admin: 05/07/17 09:51 Dose: 40 mg Physical Exam - Constitutional Appears: Non-toxic, Chronically Ill - Head Exam Head Exam: ATRAUMATIC, NORMAL INSPECTION, NORMOCEPHALIC - Eye Exam Eye Exam: PERRL. absent: Scleral icterus - ENT Exam ENT Exam: Mucous Membranes Dry, Normal External Ear Exam - Neck Exam Neck exam: Negative for: Lymphadenopathy - Respiratory Exam Respiratory Exam: Decreased Breath Sounds, Clear to Auscultation Bilateral - Cardiovascular Exam Cardiovascular Exam: REGULAR RHYTHM, +S1, +S2 - GI/Abdominal Exam GI & Abdominal Exam: Diminished Bowel Sounds, Distended, Soft. absent: Guarding , Rigid, Tenderness - Rectal Exam Rectal Exam: Deferred - Exam Exam: NORMAL INSPECTION - Extremities Exam Extremities exam: Positive for: pedal pulses present. Negative for: calf tenderness, pedal edema, tenderness - Back Exam Back exam: absent: CVA tenderness (L), CVA tenderness (R) - Neurological Exam Neurological exam: Alert, Altered, CN II-XII Intact - Psychiatric Exam Psychiatric exam: Depressed - Skin Skin Exam: Dry Results - Vital Signs Recent Vital Signs: Last Vital Signs Temp 97.2 F L 05/07/17 15:46 Pulse 83 05/07/17 15:46 Resp 20 05/07/17 15:46 BP 122/52 L 05/07/17 15:46 Pulse Ox 98 05/07/17 15:46 - Labs Result Diagrams: 05/07/17 07:30 05/07/17 07:30 Labs: Laboratory Results - last 24 hr 05/06/17 05/06/17 05/06/17 16:27 21:20 21:20 WBC RBC Hgb Hct MCV MCH MCHC RDW Plt Count MPV Neut % (Auto) Lymph % (Auto) [place] % (Auto) Eos % (Auto) Baso % (Auto) Neut # Lymph # [place] # Eos # Baso # Sodium Potassium Chloride Carbon Dioxide Anion Gap BUN Creatinine Est GFR ( Amer) Est GFR (Non-Af Amer) Random Glucose Calcium Total Bilirubin AST ALT Alkaline Phosphatase Total Protein Albumin Globulin Albumin/Globulin Ratio Urine Color Dominique Urine Clarity Clear Urine pH 5.0 Ur Specific [place] 1.018 Urine Protein Negative Urine Glucose (UA) Normal Urine Ketones Trace Urine Blood 3+ H Urine Nitrate Negative Urine Bilirubin Negative Urine Urobilinogen Normal Ur Leukocyte Esterase Neg Urine WBC (Auto) 3 Urine RBC (Auto) 39 H Ur Squamous Epith Cells 1 Urine Bacteria Rare Hyaline Casts 0-2 Stool Occult Blood Negative Urine Opiates Screen Negative Urine Methadone Screen Negative Ur Barbiturates Screen Negative Ur Phencyclidine Scrn Negative Ur Amphetamines Screen Negative U Benzodiazepines Scrn Negative U Oth Cocaine Metabols Negative U Cannabinoids Screen Negative 05/07/17 05/07/17 07:30 07:30 WBC 11.9 H RBC 3.25 L Hgb 10.7 L Hct 32.5 L MCV 100.1 H MCH 33.0 H MCHC 33.0 RDW 16.7 H Plt Count 106 L MPV 9.2 Neut % (Auto) 73.1 Lymph % (Auto) 14.2 L [place] % (Auto) 8.7 Eos % (Auto) 3.6 Baso % (Auto) 0.4 Neut # 8.7 H Lymph # 1.7 [place] # 1.0 H Eos # 0.4 Baso # 0.0 Sodium 133 Potassium 4.2 Chloride 108 H Carbon Dioxide 16 L Anion Gap 13 BUN 32 H Creatinine 2.0 H Est GFR ( Amer) 42 Est GFR (Non-Af Amer) 35 Random Glucose 133 H Calcium 7.2 L Total Bilirubin 2.2 H AST 46 ALT 32 Alkaline Phosphatase 83 Total Protein 6.0 L Albumin 1.8 L Globulin 4.3 H Albumin/Globulin Ratio 0.4 L Urine Color Urine Clarity Urine pH Ur Specific [place] Urine Protein Urine Glucose (UA) Urine Ketones Urine Blood Urine Nitrate Urine Bilirubin Urine Urobilinogen Ur Leukocyte Esterase Urine WBC (Auto) Urine RBC (Auto) Ur Squamous Epith Cells Urine Bacteria Hyaline Casts Stool Occult Blood Urine Opiates Screen Urine Methadone Screen Ur Barbiturates Screen Ur Phencyclidine Scrn Ur Amphetamines Screen U Benzodiazepines Scrn U Oth Cocaine Metabols U Cannabinoids Screen Assessment & Plan (1) Altered mental state Status: Acute (2) Elevated WBC count Status: Acute (3) Hyperkalemia Status: Acute (4) Abdominal distension Status: Acute (5) Abdominal pain Status: Acute (6) Acute renal failure Status: Acute (7) Anasarca Status: Acute (8) Anemia Status: Acute (9) Ascites Status: Acute (10) Hepatitis C antibody positive in blood Status: Acute (11) Hyperammonemia Status: Acute (12) Liver cirrhosis Status: Acute (13) Renal insufficiency Status: Acute (14) Splenomegaly Status: Acute - Assessment and Plan (Free Text) Assessment: await cultures may need repeat paracentesis cont IV antibiotics
[2017-05-07] MEDS ORDERED: Vancomycin 750mg/D5W 150 ml 150 ML IVPB SCH (17:40)
[2017-05-07] MEDS: Cefepime IV 1 gm in Dextrose 1 GM/50 ML BAG IVPB SCH (18:15)
[2017-05-08] MEDS: Cefepime IV 1 gm in Dextrose 1 GM/50 ML BAG IVPB SCH ×2 (04:06→16:40)
[2017-05-08] MEDS: Vancomycin 750mg/D5W 150 ml 150 ML IVPB SCH ×2 (04:45→17:36)
--- NOTE | 2017-05-08 12:21 | CP.PCM.PN ---
Subjective - Date & Time of Evaluation Date of Evaluation: 05/08/17 Time of Evaluation: 08:00 - Subjective Subjective: afeb weak lethargic abd distended cultures so far neg Objective - Vital Signs/Intake and Output Vital Signs (last 24 hours): Temp Pulse Resp BP Pulse Ox 97.9 F 84 20 130/55 L 97 05/08/17 07:10 05/08/17 08:03 05/08/17 07:10 05/08/17 07:10 05/08/17 07:10 Intake and Output: 05/08/17 05/08/17 06:59 18:59 Intake Total 680 Balance 680 - Medications Medications: Current Medications Vancomycin HCl (Vancocin 750mg/D5w 150 Ml) 150 mls @ 100 mls/hr IVPB Q12H [facility] Last Admin: 05/08/17 04:45 Dose: 100 mls/hr Cefepime HCl (Maxipime Iv 1 Gm Premix) 1 gm in 50 mls @ 100 mls/hr IVPB Q12H [facility] Last Admin: 05/08/17 04:06 Dose: 100 mls/hr Lactulose (Enulose) 30 gm PO TID [facility] Last Admin: 05/08/17 10:16 Dose: 30 gm Pantoprazole Sodium (Protonix Inj) 40 mg IVP DAILY [facility] Last Admin: 05/08/17 10:17 Dose: 40 mg - Labs Labs: 05/07/17 07:30 05/07/17 07:30 PT 18.2 SECONDS (9.7-12.2) H 05/06/17 15:29 INR 1.6 05/06/17 15:29 APTT 38 SECONDS (21-34) H 05/06/17 15:29 - Constitutional Appears: Non-toxic, Chronically Ill - Head Exam Head Exam: NORMOCEPHALIC - Eye Exam Eye Exam: PERRL - ENT Exam ENT Exam: Mucous Membranes Dry - Neck Exam Neck Exam: absent: Lymphadenopathy - Respiratory Exam Respiratory Exam: Decreased Breath Sounds - Cardiovascular Exam Cardiovascular Exam: REGULAR RHYTHM - GI/Abdominal Exam GI & Abdominal Exam: Distended, Soft - Rectal Exam Rectal Exam: Deferred Assessment and Plan (1) Altered mental state Status: Acute (2) Elevated WBC count Status: Acute (3) Hyperkalemia Status: Acute (4) Abdominal distension Status: Acute (5) Abdominal pain Status: Acute (6) Acute renal failure Status: Acute (7) Anasarca Status: Acute (8) Anemia Status: Acute (9) Ascites Status: Acute (10) Hepatitis C antibody positive in blood Status: Acute (11) Hyperammonemia Status: Acute (12) Liver cirrhosis Status: Acute (13) Renal insufficiency Status: Acute (14) Splenomegaly Status: Acute
--- NOTE | 2017-05-08 13:55 | CARD ---
APPROVED REPORT EKG Measurement Heart [id number] IA [id number] [id number] <Conclusion> Sinus rhythm with short IA Low voltage QRS Cannot rule out Anterior infarct, age undetermined Abnormal ECG
--- NOTE | 2017-05-08 14:00 | CARD ---
APPROVED REPORT EKG Measurement Heart [id number] AL 110P16 [id number] <Conclusion> Sinus rhythm with short AL Otherwise normal ECG
--- NOTE | 2017-05-08 14:34 | CP.PCM.PN ---
Subjective - Date & Time of Evaluation Date of Evaluation: 05/08/17 Time of Evaluation: 14:30 - Subjective Subjective: Progress note. Attending: Dr. Deng Pt seen and examined at bedside. No acute distress. No events overnight. Pt feels fatigued. No fevers, chills, vomiting, diarrhea. Objective - Vital Signs/Intake and Output Vital Signs (last 24 hours): Temp Pulse Resp BP Pulse Ox 97.9 F 82 20 130/55 L 97 05/08/17 07:10 05/08/17 12:15 05/08/17 07:10 05/08/17 07:10 05/08/17 07:10 Intake and Output: 05/08/17 05/08/17 06:59 18:59 Intake Total 680 600 Balance 680 600 - Medications Medications: Current Medications Vancomycin HCl (Vancocin 750mg/D5w 150 Ml) 150 mls @ 100 mls/hr IVPB Q12H [facility] Last Admin: 05/08/17 04:45 Dose: 100 mls/hr Cefepime HCl (Maxipime Iv 1 Gm Premix) 1 gm in 50 mls @ 100 mls/hr IVPB Q12H [facility] Last Admin: 05/08/17 04:06 Dose: 100 mls/hr Lactulose (Enulose) 30 gm PO TID [facility] Last Admin: 05/08/17 13:32 Dose: Not Given Pantoprazole Sodium (Protonix Inj) 40 mg IVP DAILY [facility] Last Admin: 05/08/17 10:17 Dose: 40 mg - Labs Labs: 05/07/17 07:30 05/07/17 07:30 PT 18.2 SECONDS (9.7-12.2) H 05/06/17 15:29 INR 1.6 05/06/17 15:29 APTT 38 SECONDS (21-34) H 05/06/17 15:29 - Constitutional Appears: Non-toxic, No Acute Distress, Chronically Ill - Head Exam Head Exam: ATRAUMATIC, NORMAL INSPECTION, NORMOCEPHALIC - Eye Exam Eye Exam: EOMI - ENT Exam ENT Exam: Mucous Membranes Moist - Neck Exam Neck Exam: Full ROM, Normal Inspection - Respiratory Exam Respiratory Exam: NORMAL BREATHING PATTERN. absent: Respiratory Distress - Cardiovascular Exam Cardiovascular Exam: +S1, +S2 - GI/Abdominal Exam GI & Abdominal Exam: Soft, Normal Bowel Sounds. absent: Tenderness - Extremities Exam Extremities Exam: Full ROM, Normal Inspection - Neurological Exam Neurological Exam: Alert, Awake, Oriented x3 - Psychiatric Exam Psychiatric exam: Flat Affect - Skin Skin Exam: Dry, Intact, Normal Color, Warm Assessment and Plan - Assessment and Plan (Free Text) Assessment: This is a 57 yo male with 1. Altered mental status -head ct shows left sphenoid meningioma (please see full report) -neurology consult. Dr Krish. leone appreciated. -pt has previously refused neurosurgical intervention -echo in January 2017 shows normal LV fx, mild MR, mild TR 2. Left pleural effusion/atelectasis -CXR shows left pleural effusion vs. atelectasis vs. pneumonia -cefepime 1 g q 12 -vancomycin 750 mg IV q 12 hrs. -f/u vanco trough -blood cultures negative thus far -ID consult. Dr. Grazyna leone appreciated. 3. hx of liver disease -continue lactulose 30 mg PO TID -bleeding precautions -GI consult. Dr. Marcum. vasu appreciated. -recent paracentesis with Dr. Carroll 10 L removed. -continue spironolactone -continue propanolol 4. hx of hep C -continue to monitor -GI consult as above. 5. hx of CKD -avoid nephrotoxic agents -continue to monitor 5.5 Hx of syphilis. -pt completed course of doxycycline 6. GI/DVT ppx -protonix 40 daily -SCDs discussed with Dr. Deng
[2017-05-09] MEDS: Cefepime IV 1 gm in Dextrose 1 GM/50 ML BAG IVPB SCH ×2 (05:18→17:51)
[2017-05-09 06:29] LABS: BASO % 0.4 % (0.0-2.0); EOS # 0.7 K/uL (0.0-0.7); HEMATOCRIT 30.7 % (35.0-51.0); LYMPH # 1.5 K/uL (1.0-4.3); LYMPH % 17.1 % (20.0-40.0); MEAN CELL VOLUME 98.5 fL (80.0-94.0); MEAN CORPUSCULAR HEMOGLOBIN 33.7 pg (27.0-31.0); MEAN CORPUSCULAR HGB CONC 34.2 g/dL (33.0-37.0); MEAN PLATELET VOLUME 8.7 fL (7.2-11.7); MONO # 1.1 K/uL (0.0-0.8); MONO % 12.2 % (0.0-10.0); NRBC % 0.2 % (0.0-2.0); RED CELL DISTRIBUTION WIDTH 16.1 % (11.5-14.5); WHITE BLOOD COUNT 8.8 K/uL (4.8-10.8)
[2017-05-09 06:50] LABS: CHLORIDE 107 mmol/L (98-107)
[2017-05-09 06:51] LABS: POTASSIUM 3.9 mmol/L (3.6-5.2); SODIUM 130 mmol/L (132-148)
--- NOTE | 2017-05-09 06:52 | CP.PCM.CON ---
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 WITH VASOGENIC EDEMA AND SHIFT PT DOES NOT WANT DECOMPRESSION KEPPRA AND [id number] 3 DAYS MRI AND EEG Past Patient History - Infectious Disease Hx of Infectious Diseases: None - Past Medical History & Family History Past Medical History?: Yes - Past Social History Smoking Status: Former Smoker - CARDIAC Hx Hypertension: Yes - PULMONARY Hx Respiratory Disorders: No - NEUROLOGICAL Hx Neurological Disorder: No - HEENT Hx HEENT Problems: No - RENAL Hx Chronic Kidney Disease: No - ENDOCRINE/METABOLIC Hx Endocrine Disorders: No - HEMATOLOGICAL/ONCOLOGICAL Hx Anemia: Yes - INTEGUMENTARY Hx Dermatological Problems: No - MUSCULOSKELETAL/RHEUMATOLOGICAL Hx Arthritis: Yes Hx Falls: Yes - GASTROINTESTINAL Hx Gastrointestinal Disorders: Yes Other/Comment: ascites - GENITOURINARY/GYNECOLOGICAL Hx Genitourinary Disorders: No - PSYCHIATRIC Hx Anxiety: Yes Hx Substance Use: Yes - SURGICAL HISTORY Hx Surgeries: No - ANESTHESIA Hx Anesthesia: Yes Hx Anesthesia Reactions: No Hx Malignant Hyperthermia: No Meds Allergies/Adverse Reactions: Allergies Allergy/AdvReac Type Severity Reaction Status Date / Time No Known Allergies Allergy Verified 05/04/17 17:56 - Medications Medications: Current Medications Cefepime HCl (Maxipime Iv 1 Gm Premix) 1 gm in 50 mls @ 100 mls/hr IVPB Q12H [facility] Last Admin: 05/09/17 05:18 Dose: 100 mls/hr Vancomycin HCl (Vancocin 750mg/D5w 150 Ml) 150 mls @ 120 mls/hr IVPB DAILY [facility] Stop: 05/14/17 10:01 Lactulose (Enulose) 30 gm PO TID [facility] Last Admin: 05/08/17 17:45 Dose: 30 gm Levetiracetam (Keppra) 500 mg PO BID [facility] Pantoprazole Sodium (Protonix Inj) 40 mg IVP DAILY [facility] Last Admin: 05/08/17 10:17 Dose: 40 mg Propranolol HCl (Inderal) 10 mg PO TID [facility] Last Admin: 05/08/17 17:45 Dose: 10 mg Spironolactone (Aldactone) 25 mg PO DAILY [facility] Results - Vital Signs Recent Vital Signs: Last Vital Signs Temp 98.5 F 05/08/17 23:05 Pulse 79 05/09/17 00:00 Resp 20 05/08/17 23:05 BP 133/73 05/08/17 23:05 Pulse Ox 99 05/08/17 23:05 - Labs Result Diagrams: 05/09/17 06:17 05/07/17 07:30 Labs: Laboratory Results - last 24 hr 05/08/17 05/08/17 05/09/17 06:13 17:09 06:17 WBC 8.8 RBC 3.11 L Hgb 10.5 L Hct 30.7 L MCV 98.5 H MCH 33.7 H MCHC 34.2 RDW 16.1 H Plt Count 101 L MPV 8.7 Neut % (Auto) 62.3 Lymph % (Auto) 17.1 L [place] % (Auto) 12.2 H Eos % (Auto) 8.0 H Baso % (Auto) 0.4 Neut # 5.5 Lymph # 1.5 [place] # 1.1 H Eos # 0.7 Baso # 0.0 Prostate Specific Ag 0.215 Vancomycin Trough 21.8 H
[2017-05-09 06:53] LABS: BILIRUBIN,TOTAL 1.9 mg/dL (0.2-1.3); CARBON DIOXIDE 17 mmol/L (22-30); GFR AFRICAN-AMERICAN > 60
[2017-05-09 06:54] LABS: ALB/GLOB RATIO 0.4 (1.0-2.1); ALKALINE PHOSPHATASE 115 U/L (38-126); ALT/SGPT 36 U/L (21-72); AST/SGOT 52 U/L (17-59); BLOOD UREA NITROGEN 33 mg/dL (9-20); CALCIUM 7.1 mg/dl (8.6-10.4); GLUCOSE,RANDOM 91 mg/dL (75-110); PHOSPHOROUS 3.1 mg/dL (2.5-4.5); TOTAL PROTEIN 6.5 g/dL (6.3-8.3)
[2017-05-09 06:55] LABS: MAGNESIUM 1.9 mg/dL (1.6-2.3)
[2017-05-09] MEDS: Dexamethasone 4 mg/1 ml IV SCH ×3 (08:00→22:04)
--- NOTE | 2017-05-09 09:41 | CP.PCM.PN ---
Subjective - Date & Time of Evaluation Date of Evaluation: 05/09/17 Time of Evaluation: 09:49 - Subjective Subjective: Medicine Progress Note- Dr Deng's service Patient seen and examined. No acute events overnight. Patient is pending MRI of his brain. He is resting and denies acute pain. Denies chest pain and shortness of breath. Objective - Vital Signs/Intake and Output Vital Signs (last 24 hours): Temp Pulse Resp BP Pulse Ox 98.4 F 81 20 113/59 L 98 05/09/17 07:40 05/09/17 07:40 05/09/17 07:40 05/09/17 07:40 05/09/17 07:40 Intake and Output: 05/09/17 05/09/17 06:59 18:59 Intake Total 200 Balance 200 - Medications Medications: Current Medications Dexamethasone (Decadron Inj) 4 mg IV Q8H [facility] Stop: 05/11/17 23:59 Cefepime HCl (Maxipime Iv 1 Gm Premix) 1 gm in 50 mls @ 100 mls/hr IVPB Q12H [facility] Last Admin: 05/09/17 05:18 Dose: 100 mls/hr Vancomycin HCl (Vancocin 750mg/D5w 150 Ml) 150 mls @ 120 mls/hr IVPB DAILY [facility] Stop: 05/14/17 10:01 Lactulose (Enulose) 30 gm PO TID [facility] Last Admin: 05/08/17 17:45 Dose: 30 gm Levetiracetam (Keppra) 500 mg PO BID [facility] Pantoprazole Sodium (Protonix Inj) 40 mg IVP DAILY [facility] Last Admin: 05/08/17 10:17 Dose: 40 mg Propranolol HCl (Inderal) 10 mg PO TID [facility] Last Admin: 05/08/17 17:45 Dose: 10 mg Spironolactone (Aldactone) 25 mg PO DAILY [facility] Thiamine HCl (Vitamin B1 Tab) 100 mg PO DAILY [facility] - Labs Labs: 05/09/17 06:17 05/09/17 06:17 PT 18.2 SECONDS (9.7-12.2) H 05/06/17 15:29 INR 1.6 05/06/17 15:29 APTT 38 SECONDS (21-34) H 05/06/17 15:29 Assessment and Plan - Assessment and Plan (Free Text) Assessment: Altered Mental Status Improving Ammonia chronically elevated due to liver failure lactulose 30mg TID for hyperammonia CT head- Redemonstration of presumable left sphenoid wing meningioma measuring approximately 2.4 x 2.7 x 3.0 cm with extensive surrounding vasogenic edema extending to the frontal and parietal lobes. No evidence of midline shift or herniation. Neurologist Dr Kirk consulted- help appreciated. Per Dr Kirk, patient does not want decompression. Will continue Keppra and IV steroids x 3 days. f/u MRI brain f/u EEG Meningioma patient declined neurosurgical intervention last few admission consulted palliative care for POLST/goals of care while in the hospital on last admission, patient signed DNR/DNI Left pleural effusion/atelectasis CXR shows left pleural effusion vs. atelectasis vs. pneumonia Procalcitonin elevated 1.89 cefepime 1 g q 12 (started on 05/07) vancomycin 750 mg IV q 12 hrs (started on 05/09) f/u vanco trough blood cultures negative thus far ID consult. Dr. Geronimo recs appreciated. Ascites 2/2 to liver failure Paracentesis on 05/05: 10 liters of fluid removed, patient tolerated procedure well lactulose 30mg TID for hyperammonia patient is hepatitis C positive; will need GI followup MELD score 26; 19.6% chance of 3 month mortality; patient will need GI followup spironolactone and propanolol for prophylaxis control BP Patient was advised to follow up with Dr. Lee in the past for GI followup Chronic Anemia Hgb stable at 10.5 Patient transfused 2 u pRBCs on 05/05 CKD Stable avoid nephrotoxic agents Hx of Syphilis Patient was given treatment and PO Doxycycline on last hospital admission in March which he states he completed. Patient must follow up with Dr Deng in his office in 4 weeks. Will recheck in 4-6 weeks to ensure treated. Prophylaxis Pepcid SCD chemical anticoagulation contraindicated due to anemia Management per Dr Deng. Patient from [facility].
[2017-05-09] MEDS: Vancomycin 750mg/D5W 150 ml 150 ML IVPB SCH (11:30)
--- NOTE | 2017-05-09 12:10 | CP.PCM.PN ---
Subjective - Date & Time of Evaluation Date of Evaluation: 05/09/17 Time of Evaluation: 08:00 - Subjective Subjective: events noted awaiting MRI weak but arousable abd distended cultures neg consider GI eval monitor ammonia level Objective - Vital Signs/Intake and Output Vital Signs (last 24 hours): Temp Pulse Resp BP Pulse Ox 98.4 F 81 20 113/59 L 98 05/09/17 07:40 05/09/17 07:40 05/09/17 07:40 05/09/17 07:40 05/09/17 07:40 Intake and Output: 05/09/17 05/09/17 06:59 18:59 Intake Total 200 Balance 200 - Medications Medications: Current Medications Dexamethasone (Decadron Inj) 4 mg IV Q8H [facility] Stop: 05/11/17 23:59 Cefepime HCl (Maxipime Iv 1 Gm Premix) 1 gm in 50 mls @ 100 mls/hr IVPB Q12H [facility] Last Admin: 05/09/17 05:18 Dose: 100 mls/hr Vancomycin HCl (Vancocin 750mg/D5w 150 Ml) 150 mls @ 120 mls/hr IVPB DAILY [facility] Stop: 05/14/17 10:01 Lactulose (Enulose) 30 gm PO TID [facility] Last Admin: 05/08/17 17:45 Dose: 30 gm Levetiracetam (Keppra) 500 mg PO BID [facility] Pantoprazole Sodium (Protonix Inj) 40 mg IVP DAILY [facility] Last Admin: 05/08/17 10:17 Dose: 40 mg Propranolol HCl (Inderal) 10 mg PO TID [facility] Last Admin: 05/08/17 17:45 Dose: 10 mg Spironolactone (Aldactone) 25 mg PO DAILY [facility] Thiamine HCl (Vitamin B1 Tab) 100 mg PO DAILY [facility] - Labs Labs: 05/09/17 06:17 05/09/17 06:17 PT 18.2 SECONDS (9.7-12.2) H 05/06/17 15:29 INR 1.6 05/06/17 15:29 APTT 38 SECONDS (21-34) H 05/06/17 15:29 - Constitutional Appears: No Acute Distress - Head Exam Head Exam: NORMOCEPHALIC - Eye Exam Eye Exam: PERRL - ENT Exam ENT Exam: Mucous Membranes Dry - Neck Exam Neck Exam: absent: Lymphadenopathy - Respiratory Exam Respiratory Exam: Decreased Breath Sounds - Cardiovascular Exam Cardiovascular Exam: REGULAR RHYTHM - GI/Abdominal Exam GI & Abdominal Exam: Distended, Tenderness Assessment and Plan (1) Altered mental state Status: Acute (2) Elevated WBC count Status: Acute (3) Hyperkalemia Status: Acute (4) Abdominal distension Status: Acute (5) Abdominal pain Status: Acute (6) Acute renal failure Status: Acute (7) Anasarca Status: Acute (8) Anemia Status: Acute (9) Ascites Status: Acute (10) Hepatitis C antibody positive in blood Status: Acute (11) Hyperammonemia Status: Acute (12) Liver cirrhosis Status: Acute (13) Renal insufficiency Status: Acute (14) Splenomegaly Status: Acute
--- NOTE | 2017-05-09 13:13 | MRI ---
PROCEDURE: MRI BRAIN WITHOUT CONTRAST HISTORY: Meningioma COMPARISON: None. TECHNIQUE: Multiplanar, multisequence MR images of the brain were obtained without intravenous contrast enhancement. Low GFR precludes administration of intravenous gadolinium for this patient. FINDINGS: HEMORRHAGE: None DWI: No evidence of an acute or early subacute infarction. 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 Vasogenic edema pattern is reiterated at the left frontal lobe and is unchanged. No global mass effect although limited local mass-effect does display a few local gyri and displace the left A1 anterior cerebral artery posteriorly. Diffuse expansion of the ventriculosulcal and cisternal spaces is reiterated with white matter lucency compatible with diffuse cerebral atrophy and chronic microangiopathy. No suspicious extra-axial fluid collection. Posterior fossa contents remain unremarkable. VENTRICLES: Unremarkable. No hydrocephalus. CRANIUM: Unremarkable. ORBITS: Grossly unremarkable. PARANASAL SINUSES/MASTOIDS: Clear VASCULAR SYSTEM: Skull base flow voids intact. OTHER FINDINGS: None. IMPRESSION: A 2.3 cm extra-axial mass is again seen base of the left sphenoid wing exerting limited local mass effect the left frontal lobe and anterior lateral left side of the [place] Resendez suggestive of a bone likely meningioma with local vasogenic edema affecting the left frontal lobe. Intravenous gadolinium was withheld due to low GFR. Should the patient's GFR improve well over 30 than gadolinium enhanced brain MRI may be reconsidered. Age related neuro degenerative changes are reiterated.
[2017-05-10] MEDS: Cefepime IV 1 gm in Dextrose 1 GM/50 ML BAG IVPB SCH ×2 (05:04→17:47)
[2017-05-10] MEDS: Dexamethasone 4 mg/1 ml IV SCH ×2 (06:07→14:27)
--- NOTE | 2017-05-10 07:43 | CP.PCM.PN ---
Subjective - Date & Time of Evaluation Date of Evaluation: 05/10/17 Time of Evaluation: 07:39 - Subjective Subjective: Medicine Progress Note- Dr Deng's service Patient seen and examined. Patient states that he feels well today and denies abdominal pain or headache. The patient is AAOx3 and in no acute distress. Patient is following instructions and answering questions appropriately. Denies chest pain and shortness of breath. Objective - Vital Signs/Intake and Output Vital Signs (last 24 hours): Temp Pulse Resp BP Pulse Ox 98.1 F 77 20 115/59 L 96 05/09/17 23:05 05/10/17 04:43 05/09/17 23:05 05/09/17 23:05 05/09/17 23:05 Intake and Output: 05/10/17 05/10/17 06:59 18:59 Intake Total 470 Balance 470 - Medications Medications: Current Medications Dexamethasone (Decadron Inj) 4 mg IV Q8H [facility] Stop: 05/11/17 23:59 Last Admin: 05/10/17 06:07 Dose: 4 mg Cefepime HCl (Maxipime Iv 1 Gm Premix) 1 gm in 50 mls @ 100 mls/hr IVPB Q12H [facility] Last Admin: 05/10/17 05:04 Dose: 100 mls/hr Vancomycin HCl (Vancocin 750mg/D5w 150 Ml) 150 mls @ 120 mls/hr IVPB DAILY [facility] Stop: 05/14/17 10:01 Last Admin: 05/09/17 11:30 Dose: 120 mls/hr Lactulose (Enulose) 30 gm PO TID [facility] Last Admin: 05/09/17 17:51 Dose: 30 gm Levetiracetam (Keppra) 500 mg PO BID [facility] Last Admin: 05/09/17 17:51 Dose: 500 mg Pantoprazole Sodium (Protonix Inj) 40 mg IVP DAILY [facility] Last Admin: 05/09/17 11:30 Dose: 40 mg Propranolol HCl (Inderal) 10 mg PO TID [facility] Last Admin: 05/09/17 21:41 Dose: 10 mg Rifaximin (Xifaxan) 550 mg PO BID [facility] Last Admin: 05/09/17 17:51 Dose: 550 mg Spironolactone (Aldactone) 25 mg PO DAILY [facility] Last Admin: 05/09/17 11:30 Dose: 25 mg Thiamine HCl (Vitamin B1 Tab) 100 mg PO DAILY [facility] Last Admin: 05/09/17 12:00 Dose: 100 mg - Labs Labs: 05/09/17 06:17 05/09/17 06:17 PT 18.2 SECONDS (9.7-12.2) H 05/06/17 15:29 INR 1.6 05/06/17 15:29 APTT 38 SECONDS (21-34) H 05/06/17 15:29 - Constitutional Appears: Non-toxic, No Acute Distress - Head Exam Head Exam: ATRAUMATIC, NORMOCEPHALIC - Eye Exam Eye Exam: EOMI, Normal appearance, Scleral icterus - ENT Exam ENT Exam: Mucous Membranes Moist, Normal Exam - Respiratory Exam Respiratory Exam: Clear to Ausculation Bilateral, NORMAL BREATHING PATTERN. absent: Rales, Rhonchi, Wheezes, Respiratory Distress, Stridor - Cardiovascular Exam Cardiovascular Exam: REGULAR RHYTHM, +S1, +S2. absent: Irregular Rhythm - GI/Abdominal Exam GI & Abdominal Exam: Distended, Soft, Normal Bowel Sounds. absent: Tenderness - Extremities Exam Extremities Exam: Full ROM, Normal Inspection. absent: Pedal Edema, Tenderness - Neurological Exam Neurological Exam: Alert, Awake, CN II-XII Intact, Oriented x3 - Psychiatric Exam Psychiatric exam: Normal Affect, Normal Mood - Skin Skin Exam: Dry, Intact, Normal Color, Warm Assessment and Plan - Assessment and Plan (Free Text) Assessment: Altered Mental Status Resolved, AAOx3 Ammonia chronically elevated due to liver failure lactulose 30mg TID for hyperammonia +CT head- Redemonstration of presumable left sphenoid wing meningioma measuring approximately 2.4 x 2.7 x 3.0 cm with extensive surrounding vasogenic edema extending to the frontal and parietal lobes. No evidence of midline shift or herniation. Neurologist Dr Kirk consulted- help appreciated. Per Dr Kirk, patient does not want decompression. Will continue Keppra and IV steroids x 3 days. +MRI brain- A 2.3 cm extra-axial mass is again seen base of the left sphenoid wing exerting limited local mass effect the left frontal lobe and anterior lateral left side of the [place] Resendez suggestive of a bone likely meningioma with local vasogenic edema affecting the left frontal lobe. Intravenous gadolinium was withheld due to low GFR. Should the patient's GFR improve well over 30 than gadolinium enhanced brain MRI may be reconsidered. EEG Meningioma patient declined neurosurgical intervention last few admission Keppra and IV steroids x 3 days per neurology recommendation (stop on 05/11) consulted palliative care for POLST/goals of care while in the hospital on last admission, patient signed DNR/DNI +MRI brain- A 2.3 cm extra-axial mass is again seen base of the left sphenoid wing exerting limited local mass effect the left frontal lobe and anterior lateral left side of the [place] Resendez suggestive of a bone likely meningioma with local vasogenic edema affecting the left frontal lobe. Intravenous gadolinium was withheld due to low GFR. Should the patient's GFR improve well over 30 than gadolinium enhanced brain MRI may be reconsidered. Left pleural effusion/atelectasis CXR shows left pleural effusion vs. atelectasis vs. pneumonia Procalcitonin elevated 1.89 cefepime 1 g q 12 (started on 05/07) vancomycin 750 mg IV q 12 hrs (started on 05/09) monitor vanco trough blood cultures negative thus far ID consult. Dr. Geronimo recs appreciated. Ascites 2/2 to liver failure Paracentesis on 05/05: 10 liters of fluid removed, patient tolerated procedure well lactulose 30mg TID for hyperammonia patient is hepatitis C positive; will need GI followup MELD score 26; 19.6% chance of 3 month mortality; patient will need GI followup spironolactone and propanolol for prophylaxis control BP Patient was advised to follow up with Dr. Lee in the past for GI followup Chronic Anemia Hgb stable at 10.5 Patient transfused 2 u pRBCs on 05/05 CKD Stable avoid nephrotoxic agents Hx of Syphilis Patient was given treatment and PO Doxycycline on last hospital admission in March which he states he completed. Patient must follow up with Dr Deng in his office in 4 weeks. Will recheck in 4-6 weeks to ensure treated. Prophylaxis Pepcid SCD chemical anticoagulation contraindicated due to anemia Management per Dr Deng. Patient from [facility].
--- NOTE | 2017-05-10 09:45 | CON ---
DATE: 05/09/2017 NEUROLOGY INITIAL CONSULTATION REASON FOR THE CONSULTATION: Change in mental status. CHIEF COMPLAINT: The patient was admitted with history of altered mental status. From neurological point of view, I was called in to evaluate him for further management. HISTORY OF PRESENT ILLNESS: Mr. Tod Marte is a 57-year-old right-handed Lithuanian-speaking male presenting with a history of change in mental status at home, which he describes some fabricated stories, which may be true or not, I am not aware of it. No history of loss of consciousness. No history of involuntary movements. No history of urinary incontinence or bitten tongue. 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 PERSONAL HISTORY: Quit smoking. Quit alcohol use. No history of drug abuse. ALLERGIES: NO ALLERGIES. REVIEW OF SYSTEMS: A 16-point systems had been reviewed. From neuro, change in mental status. MEDICATIONS: Spironolactone, Enulose, Inderal, Maxipime, Protonix, and vancomycin. PHYSICAL EXAMINATION: VITAL SIGNS: Blood pressure 133/73, mean arterial pressure of 93, respiratory rate 20, temperature 98.5 with pulse rate 79 and regular. NECK: Supple. No carotid bruit. HEART: Sounds tachycardia. EXTREMITIES: 2+ pitting edema. Legs are not externally rotated. NEUROLOGIC: Patient is awake, alert, and oriented to person, place, and time. Speech is clear. Naming and repetition intact. No confusion. No hallucination. No suicidal ideation. Cranial nerves: Visual field intact. Pupils reactive to light. Extraocular movement normal. No nystagmus. No facial sensory deficit. No facial asymmetry. Hearing is normal. Tongue is midline. Good gag. Motor: On outstretched hand with eyes closed, no drift noted. Some sensory tremor noted. No asterixis. Deep tendon reflexes, biceps, brachialis, and triceps 2+; both knees are 2+; both ankles are absent. Plantars are downgoing. Sensory: Mild sensorimotor neuropathy. No cortical sensory loss. Coordination: [id number] test is intact. Gait: Deferred at this time. CT of the head without contrast had been reviewed, showed around 2.5-3 cm hypodense lesion over the sphenoid wing region consistent with sphenoid wing meningioma with vasogenic edema, shift from left to the right noted. The edema is noted mostly in left temporal as well as the parietal lobe region. EKG normal sinus rhythm. LABORATORY DATA: WBC 8.8, hemoglobin 10.5, hematocrit 30.7, platelet 101. Sodium 133, potassium 4.2, chloride 108, bicarbonate 16, BUN 32, creatinine 2.0, GFR 35, glucose 131. AST 46, ALT 32, total bilirubin 2.2, calcium 7.2. CONCLUSION: Mr. Tod Marte has been presenting with old history of sphenoid wing meningioma, presenting with change in mental status. His history as well as abnormal radiological evidence all consistent with possible partial complex seizures versus toxic or metabolic encephalopathy. Because of the episodic in nature, I think this is probably the seizures than metabolic encephalopathy. Current examination also showed bilateral distal symmetric sensorimotor neuropathy. RECOMMENDATIONS: 1. Patient's decision is well taken. He knows this tumor being there for long time. He does not want to do any surgical intervention of decompression. 2. I totally leave the choice to him whether he wants to go for MRI of the brain or not; however, I forced him to do electroencephalogram to see if any electrographic epileptiform activities to pursue the current treatment. 3. Blood workup as per the order. 4. Correct the electrolytes. GI consult is also recommended. 5. Patient should be on multivitamins, proper hydration, and nutritional consultation to improve his nutritional status. Patient will be followed closely while he is in the hospital. Francisco J Kirk MD MTDD
[2017-05-10] MEDS: Vancomycin 750mg/D5W 150 ml 150 ML IVPB SCH (10:57)
--- NOTE | 2017-05-10 11:29 | PN ---
DATE: 05/10/2017 NEUROLOGICAL PROBLEM: Possible partial complex seizures with radiologic evidence of sphenoid wing meningioma with mass effect. PHYSICAL EXAMINATION: VITAL SIGNS: Blood pressure 115/59, mean arterial pressure of 77, respiratory rate 16, temperature 98.1, pulse rate 74. NEUROLOGICAL: The patient's examination which is unchanged compared with my yesterday's examination. The patient is awake, alert, oriented to person, place and time. The patient showed diffuse neuropathy and the plantars are downgoing. WORKUP: EEG showed bilateral slow activities without any paroxysmal activities nor focal slowing noted. MRI of the brain been reviewed, which showed movement artifact. There is evidence of 2.3 x 2 cm left sphenoid wing meningioma noted. The lesion has dural tail consistent with the meningioma. The patient also showed vasogenic edema with mild shift to the right. Blood workup: WBC 8.8, hemoglobin 10.5, hematocrit 33.7, platelets 101. Sodium 130, potassium 3.9, chloride 107, bicarbonate 17, BUN 33, ammonia level 90. RECOMMENDATION: 1. The patient should be followed by GI. 2. I would prefer him to continue Keppra though EEG is normal because of his focal lesion and clinical manifestation of episodic change in mental status. When the patient is discharged, the patient should have ambulatory video electroencephalogram that can be done as outpatient to further assess the electrical activities of the brain. I discussed with him to continue Keppra for at least 6 months. Neurologically, the patient is stable. No further workup is needed. Francisco J Kirk MD
--- NOTE | 2017-05-10 13:28 | EEG ---
DATE: 05/10/2017 This is a 16-channel electroencephalogram of awake and drowsy adult. During the study, photic stimulation was performed. Hyperventilation was not performed. The resting electroencephalogram consists of 5 to 7 Hz, 20 to 30 microvolts, diffuse theta activities were seen bilaterally from the beginning to the end. The photic stimulation did not evoke driving response noted at 2 to 20 Hz. IMPRESSION: This is an abnormal electroencephalogram because of persistent slowing throughout the record suggestive of bilateral cerebral dysfunction. This is probably secondary to metabolic, vascular or degenerative process. Please correlate the finding with the neurological and radiological studies. Francisco J Kirk MD
--- NOTE | 2017-05-10 13:46 | PN ---
DATE: LOCATION: [facility], bed B. SUBJECTIVE: This is a 57-year-old male seen for GI consultation initially on 05/09/2017 as requested by the admitting medical team, reexamined again today. The patient is a DNR and DNI status. The entire chart is reviewed including but not limited to the most recent lab and radiology study results, current and previous medication list, current and previous medical events and apparently, the patient is refusing to take his medication, seen by the Neurology [employer] consultant on the case, indicating that he feels better with less abdominal pain and no reported nausea, vomiting or headache, appears to be more awake, alert, oriented. No blood workup today, but the patient reported to have low hemoglobin and hematocrit with thrombocytopenia of 110 with low sodium of 130, low CO2 content 17 indicative of metabolic acidosis with ammonia levels yesterday of 90 with low albumin 1.6. PSA is normal. PHYSICAL EXAMINATION VITAL SIGNS: A 57-year-old male, afebrile with pulse of 62, respiratory rate 20-22, blood pressure of 130/68. HEENT: Showed pale, dry oral mucous membrane. Nonicteric sclerae. LUNGS: A few scattered crepitation, decreased air entry at bases. HEART: Positive S1 and S2. ABDOMEN: Soft. Bowel sounds are present with mild generalized tenderness. No mass or organomegaly. RECTAL: The patient refused. EXTREMITIES: Without significant clubbing, cyanosis or edema. NEUROLOGIC: No reported new neurological deficits, sensory or motor. LABORATORY DATA: Active GI bleeding during his presentation, and since admission. IMPRESSION: 1. Recent gastrointestinal blood loss of unclear etiology. 2. Change of mental status secondary to most likely hepatic encephalopathy with increased ammonia level. 3. Known history of hepatitis C virus infection, liver cirrhosis secondary to hepatitis C. 4. Anemia secondary to above. 5. syndrome by history. 6. Hypertension by history. 7. Status post paracentesis recently. 8. Electrolyte imbalance. 9. Malnutrition with hypoalbuminemia. SUGGESTIONS: 1. Continue current management. 2. Neomycin 500 mg 1 tablet p.o. q. 6 hours. 3. Further recommendation to follow. Yael Archibald MD
--- NOTE | 2017-05-10 16:21 | CP.PCM.PN ---
Subjective - Date & Time of Evaluation Date of Evaluation: 05/10/17 Time of Evaluation: 09:00 - Subjective Subjective: improving slowly afebrile cultures so far negative Objective - Vital Signs/Intake and Output Vital Signs (last 24 hours): Temp Pulse Resp BP Pulse Ox 97.3 F L 68 20 132/59 L 100 05/10/17 15:15 05/10/17 15:15 05/10/17 15:15 05/10/17 15:15 05/10/17 15:15 Intake and Output: 05/10/17 05/10/17 06:59 18:59 Intake Total 470 300 Balance 470 300 - Medications Medications: Current Medications Dexamethasone (Decadron Inj) 4 mg IV Q8H [facility] Stop: 05/11/17 23:59 Last Admin: 05/10/17 14:27 Dose: Not Given Cefepime HCl (Maxipime Iv 1 Gm Premix) 1 gm in 50 mls @ 100 mls/hr IVPB Q12H [facility] Last Admin: 05/10/17 05:04 Dose: 100 mls/hr Vancomycin HCl (Vancocin 750mg/D5w 150 Ml) 150 mls @ 120 mls/hr IVPB DAILY [facility] Stop: 05/14/17 10:01 Last Admin: 05/10/17 10:57 Dose: Not Given Lactulose (Enulose) 30 gm PO TID [facility] Last Admin: 05/10/17 14:27 Dose: Not Given Levetiracetam (Keppra) 500 mg PO BID [facility] Last Admin: 05/10/17 10:23 Dose: 500 mg Pantoprazole Sodium (Protonix Ec Tab) 40 mg PO DAILY [facility] Propranolol HCl (Inderal) 10 mg PO TID [facility] Last Admin: 05/10/17 14:30 Dose: 10 mg Rifaximin (Xifaxan) 550 mg PO BID [facility] Last Admin: 05/10/17 10:24 Dose: 550 mg Spironolactone (Aldactone) 25 mg PO DAILY [facility] Last Admin: 05/10/17 10:22 Dose: 25 mg Thiamine HCl (Vitamin B1 Tab) 100 mg PO DAILY [facility] Last Admin: 05/10/17 10:23 Dose: 100 mg - Labs Labs: 05/09/17 06:17 05/09/17 06:17 PT 18.2 SECONDS (9.7-12.2) H 05/06/17 15:29 INR 1.6 05/06/17 15:29 APTT 38 SECONDS (21-34) H 05/06/17 15:29 - Constitutional Appears: Non-toxic - Head Exam Head Exam: NORMOCEPHALIC - Eye Exam Eye Exam: absent: Scleral icterus - ENT Exam ENT Exam: Mucous Membranes Dry - Neck Exam Neck Exam: absent: Lymphadenopathy - Respiratory Exam Respiratory Exam: Decreased Breath Sounds, Clear to Ausculation Bilateral - Cardiovascular Exam Cardiovascular Exam: REGULAR RHYTHM - GI/Abdominal Exam GI & Abdominal Exam: Distended, Soft - Rectal Exam Rectal Exam: Deferred - Exam Exam: NORMAL INSPECTION - Extremities Exam Extremities Exam: absent: Pedal Edema - Back Exam Back Exam: absent: CVA tenderness (L), CVA tenderness (R) - Neurological Exam Neurological Exam: Alert, Awake, Oriented x3 Assessment and Plan (1) Altered mental state Status: Acute (2) Elevated WBC count Status: Acute (3) Hyperkalemia Status: Acute (4) Abdominal distension Status: Acute (5) Abdominal pain Status: Acute (6) Acute renal failure Status: Acute (7) Anasarca Status: Acute (8) Anemia Status: Acute (9) Ascites Status: Acute (10) Hepatitis C antibody positive in blood Status: Acute (11) Hyperammonemia Status: Acute (12) Liver cirrhosis Status: Acute (13) Renal insufficiency Status: Acute (14) Splenomegaly Status: Acute
--- NOTE | 2017-05-11 08:48 | CARD ---
APPROVED REPORT EKG Measurement Heart [id number] NC [id number] <Conclusion> Sinus rhythm with short NC Otherwise normal ECG
--- NOTE | 2017-05-11 08:50 | CARD ---
APPROVED REPORT EKG Measurement Heart [id number] <Conclusion> Normal sinus rhythm Inferior infarct, age undetermined Abnormal ECG
[2017-05-11] MEDS: Pantoprazole 40 mg EC Tab PO SCH (10:03)
--- NOTE | 2017-05-11 15:23 | PN ---
DATE: 05/11/2017 NEUROLOGICAL PROBLEM: Possible partial complex seizures secondary to his left sphenoid wing meningioma with mass effect. PHYSICAL EXAMINATION: VITAL SIGNS: Blood pressure 119/59, mean arterial pressure of 79, respiratory rate 20, temperature 98.0, pulse rate 66, regular. NEUROLOGICAL: The patient is awake, watching TV. His speech is clear, oriented. He feels good with current medication. No new complaints. The examination is unchanged when compared with my previous examination. RECOMMENDATION: Continue Keppra for now. When he is discharged, the patient should have followup with me as an outpatient. The patient should have ambulatory video electroencephalogram at least for 48 hours period to assess his electrical activities of the brain during his awake and sleep status sleep stage. The patient is neurologically stable. If medically stable, the patient can be discharged. Francisco J Kirk MD
--- NOTE | 2017-05-11 18:20 | CP.PCM.PN ---
Subjective - Date & Time of Evaluation Date of Evaluation: 05/11/17 Time of Evaluation: 08:00 - Subjective Subjective: awake alert responsive nad belly soft non tender now Objective - Vital Signs/Intake and Output Vital Signs (last 24 hours): Temp Pulse Resp BP Pulse Ox 98.7 F 70 20 148/77 99 05/11/17 15:52 05/11/17 15:52 05/11/17 15:52 05/11/17 15:52 05/11/17 15:52 Intake and Output: 05/11/17 05/11/17 06:59 18:59 Intake Total 480 Balance 480 - Medications Medications: Current Medications Dexamethasone (Decadron) 4 mg PO TID [facility] Last Admin: 05/11/17 17:40 Dose: 4 mg Cefepime HCl (Maxipime Iv 1 Gm Premix) 1 gm in 50 mls @ 100 mls/hr IVPB Q12H [facility] Lactulose (Enulose) 30 gm PO TID [facility] Last Admin: 05/11/17 17:26 Dose: Not Given Levetiracetam (Keppra) 500 mg PO BID [facility] Last Admin: 05/11/17 17:40 Dose: 500 mg Pantoprazole Sodium (Protonix Ec Tab) 40 mg PO DAILY [facility] Last Admin: 05/11/17 10:03 Dose: 40 mg Propranolol HCl (Inderal) 10 mg PO TID [facility] Last Admin: 05/11/17 17:43 Dose: 10 mg Rifaximin (Xifaxan) 550 mg PO BID [facility] Last Admin: 05/11/17 17:40 Dose: 550 mg Spironolactone (Aldactone) 25 mg PO DAILY [facility] Last Admin: 05/11/17 10:01 Dose: 25 mg Thiamine HCl (Vitamin B1 Tab) 100 mg PO DAILY [facility] Last Admin: 05/11/17 10:03 Dose: 100 mg - Labs Labs: 05/09/17 06:17 05/09/17 06:17 PT 18.2 SECONDS (9.7-12.2) H 05/06/17 15:29 INR 1.6 05/06/17 15:29 APTT 38 SECONDS (21-34) H 05/06/17 15:29 - Constitutional Appears: Non-toxic, Chronically Ill - Head Exam Head Exam: NORMOCEPHALIC - Eye Exam Eye Exam: PERRL - ENT Exam ENT Exam: Mucous Membranes Dry - Neck Exam Neck Exam: absent: Lymphadenopathy - Respiratory Exam Respiratory Exam: Decreased Breath Sounds - Cardiovascular Exam Cardiovascular Exam: REGULAR RHYTHM - GI/Abdominal Exam GI & Abdominal Exam: Distended, Soft. absent: Tenderness - Rectal Exam Rectal Exam: Deferred Assessment and Plan (1) Altered mental state Status: Acute (2) Elevated WBC count Status: Acute (3) Hyperkalemia Status: Acute (4) Abdominal distension Status: Acute (5) Abdominal pain Status: Acute (6) Acute renal failure Status: Acute (7) Anasarca Status: Acute (8) Anemia Status: Acute (9) Ascites Status: Acute (10) Hepatitis C antibody positive in blood Status: Acute (11) Hyperammonemia Status: Acute (12) Liver cirrhosis Status: Acute (13) Renal insufficiency Status: Acute (14) Splenomegaly Status: Acute
--- NOTE | 2017-05-11 19:03 | PN ---
LOCATION: [facility], bed B. SUBJECTIVE: This is a 57-year-old male, seen and examined today in rounds in a status of DNR and DNI, refusing some of his medication including lactulose with very poor oral intake. The entire chart is reviewed including, but not limited to the most recent lab and radiology study results, current and the previous medication lists, current and the previous medical events and no lab results today. Official report of recently done brain MRI seen. Case discussed with the admitting medical team. PHYSICAL EXAMINATION: GENERAL: A 57-year-old male, afebrile. VITAL SIGNS: Pulse of 74, respiratory rate 20 to 22 and blood pressure 144/74. HEENT: Showed pale, dry oral mucoid membrane. Nonicteric sclerae. LUNGS: Few scattered crepitation. Decreased air entry at bases. HEART: Positive S1 and S2. ABDOMEN: Soft with slight generalized tenderness. No mass or organomegaly. No rebound tenderness or guarding. RECTAL: The patient refused. EXTREMITIES: Lower extremities, mild edematous changes. IMPRESSION: 1. Recently reported gastrointestinal blood loss, unclear etiology. 2. Change of mental status which could be secondary to hepatic encephalopathy with increased ammonia level. 3. Known history of hepatitis C viral infection, liver cirrhosis. 4. Hypertension by history. 5. Status post paracentesis recently with evidence of portal hypertension and ascites. 6. Failure to thrive. 7. Malnutrition with hypoalbuminemia. 8. Anemia most likely secondary to above. 9. 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 SUGGESTION: 1. Agree with your plan. 2. Lactulose enema. 3. Cancer markers. 4. Again as the patient is refusing any aggressive treatment or workup, conservative treatment to follow. Yael rAchibald MD cc: Yael Archibald MD
[2017-05-11] MEDS: Cefepime IV 1 gm in Dextrose 1 GM/50 ML BAG IVPB SCH (19:44)
[2017-05-12] MEDS: Cefepime IV 1 gm in Dextrose 1 GM/50 ML BAG IVPB SCH (08:00)
[2017-05-12] MEDS: Pantoprazole 40 mg EC Tab PO SCH (10:59)
--- NOTE | 2017-05-12 15:13 | CP.PCM.PN ---
Subjective - Date & Time of Evaluation Date of Evaluation: 05/12/17 Time of Evaluation: 10:00 - Subjective Subjective: improving on IV rx to complete 7 days rx Objective - Vital Signs/Intake and Output Vital Signs (last 24 hours): Temp Pulse Resp BP Pulse Ox 98.7 F 62 19 146/67 98 05/12/17 13:35 05/12/17 13:35 05/12/17 13:35 05/12/17 13:35 05/12/17 13:35 Intake and Output: 05/12/17 05/12/17 06:59 18:59 Intake Total 600 400 Balance 600 400 - Medications Medications: Current Medications Dexamethasone (Decadron) 4 mg PO TID [facility] Last Admin: 05/12/17 14:11 Dose: 4 mg Cefepime HCl (Maxipime Iv 1 Gm Premix) 1 gm in 50 mls @ 100 mls/hr IVPB Q12H [facility] Last Admin: 05/12/17 08:00 Dose: 100 mls/hr Lactulose (Enulose) 30 gm PO TID [facility] Last Admin: 05/12/17 14:12 Dose: Not Given Levetiracetam (Keppra) 500 mg PO BID [facility] Last Admin: 05/12/17 10:59 Dose: 500 mg Pantoprazole Sodium (Protonix Ec Tab) 40 mg PO DAILY [facility] Last Admin: 05/12/17 10:59 Dose: 40 mg Propranolol HCl (Inderal) 10 mg PO TID [facility] Last Admin: 05/12/17 14:11 Dose: 10 mg Rifaximin (Xifaxan) 550 mg PO BID [facility] Last Admin: 05/12/17 10:59 Dose: 550 mg Spironolactone (Aldactone) 25 mg PO DAILY [facility] Last Admin: 05/12/17 10:58 Dose: 25 mg Thiamine HCl (Vitamin B1 Tab) 100 mg PO DAILY [facility] Last Admin: 05/12/17 10:56 Dose: 100 mg - Labs Labs: 05/09/17 06:17 05/09/17 06:17 PT 18.2 SECONDS (9.7-12.2) H 05/06/17 15:29 INR 1.6 05/06/17 15:29 APTT 38 SECONDS (21-34) H 05/06/17 15:29 - Constitutional Appears: Non-toxic, Chronically Ill - Head Exam Head Exam: NORMOCEPHALIC - Eye Exam Eye Exam: PERRL - ENT Exam ENT Exam: Mucous Membranes Dry - Neck Exam Neck Exam: absent: Lymphadenopathy - Respiratory Exam Respiratory Exam: Decreased Breath Sounds - Cardiovascular Exam Cardiovascular Exam: REGULAR RHYTHM - GI/Abdominal Exam GI & Abdominal Exam: Distended Assessment and Plan (1) Altered mental state Status: Acute (2) Elevated WBC count Status: Acute (3) Hyperkalemia Status: Acute (4) Abdominal distension Status: Acute (5) Abdominal pain Status: Acute (6) Acute renal failure Status: Acute (7) Anasarca Status: Acute (8) Anemia Status: Acute (9) Ascites Status: Acute (10) Hepatitis C antibody positive in blood Status: Acute (11) Hyperammonemia Status: Acute (12) Liver cirrhosis Status: Acute (13) Renal insufficiency Status: Acute (14) Splenomegaly Status: Acute
[2017-05-12 16:25] VITALS: BP 149/69; PULSE 61; RESP 20; TEMP 97.4; O2SAT 99
--- NOTE | 2017-05-12 21:25 | PN ---
DATE: LOCATION: [address] [place] [address] B. SUBJECTIVE: This 57 years old male in status of DNR and DNI, seen earlier today in rounds without significant clinical changes. The entire chart is reviewed including but not limited to the most recent lab and radiology study results, current and previous medication list, current and previous medical events, and no blood workup reported today. PHYSICAL EXAMINATION: GENERAL: A 57 years old male. VITAL SIGNS: Afebrile with pulse of 58, respiratory rate 20 to 22, his blood pressure 144/66, patient refusing apparently to eat. HEENT: Showed pale, dry oral mucoid membranes, nonicteric sclerae. LUNGS: Few scattered crepitation, decreased air entry at bases. HEART: Positive S1 and S2. ABDOMEN: Soft with mild generalized tenderness. No mass or organomegaly. No rebound tenderness or guarding. RECTAL: Patient refused. EXTREMITIES: Without significant clubbing, cyanosis, or edema. NEUROLOGIC: No reported new neurological deficits, sensory or motor. It has to be mentioned that the patient's abdominal girth is more than before with more ascites. IMPRESSION: 1. Failure to thrive. 2. Liver cirrhosis with known history of hepatitis C viral infection. 3. Portal hypertension with ascites. 4. Acute renal failure. 5. Change of mental status, most likely secondary also to above. 6. Increased ammonia level inducing change of mental status. 7. Splenomegaly due to the patient's portal hypertension and liver cirrhosis. SUGGESTIONS: 1. Continue current management. 2. Conservative treatment at this point. 3. The case discussed at length with the ID principal consultant on the case, Dr. Geronimo. 4. Further recommendation to follow. Yael Archibald MD
--- NOTE | 2017-05-15 01:47 | CON ---
DATE: 05/09/[address] Yael Archibald to Dr. Char Deng MD I was called for GI consultation by the admitting medical staff and the MD. The patient is seen initially for GI consultation on 05/09/2017, as requested by Dr. Deng, the entire chart is reviewed including, but not limited to the most recent lab and radiology study results, current and the previous medication list, current and the previous medical events, allergy to medication list as well as all the available current and previous medical records. Case discussed at length with the admitting MD. HISTORY OF PRESENT ILLNESS: This is a 57-year-old male who was admitted to the hospital with change of mental status, generalized weakness and malaise, from a [facility] with increased abdominal girth with questionable GI bleeding as reported by the fci staff of unclear source and duration. It has to be mentioned that all the information was obtained from the medical staff, nursing staff noted, fci notes as the patient is unable at the time of physical examination to give full history. PAST MEDICAL HISTORY: As reported, 1. Hepatitis C viral infection, liver cirrhosis. 2. Evidence of portal hypertension with ascites before with status post abdominal paracentesis very recently. After being admitted to the hospital, initial blood workup showed thrombocytopenia 114 with white blood cells of 14.3 and elevated, with increased potassium of 6.0, low CO2 contained 16, indicative of metabolic acidosis with increased BUN to 25 and low creatinine 1.6 with abnormal liver function test and increased PT and PTT. CURRENT MEDICATIONS: Medication list post-admission is seen. FAMILY HISTORY: Unknown. ALLERGIES TO MEDICATION: UNKNOWN. PHYSICAL EXAMINATION GENERAL: A 57-year-old male. VITAL SIGNS: Afebrile at the time he was seen by me with pulse of 80, respiratory rate 18 to 20 with blood pressure of 98/50. HEENT: Show pale, dry mucous membrane with bilateral icteric sclerae. LYMPH NODES: No lymphadenitis or lymphadenopathy. LUNGS: He has got crepitation with decreased air entry at bases. HEART: Positive S1 and S2 with increased rate. ABDOMEN: Soft but with moderate ascites and generalized tenderness. No mass or organomegaly. No rebound tenderness or guarding. NEUROLOGIC: No reported new neurological deficits, sensory, or motor. IMPRESSION: 1. Liver cirrhosis. 2. Portal hypertension with refractory ascites. 3. Early stage of hepatic encephalopathy. 4. Known history as reported of hypertension, osteoarthritis, severe anxiety syndrome. 5. Coagulopathy secondary to above. 6. Anemia most likely secondary to chronic disease. 7. Change of mental status most likely secondary to hepatic encephalopathy versus less likely intracranial lesion and bleeding. SUGGESTION: 1. Agree with your plan. 2. Ammonia level. 3. Add neomycin p.o. plus lactulose p.o, 4. CAT scan of the head. 5. . 6. Correct any underlying electrolyte imbalance. 7. Correct any underlying coagulopathy. 8. Guaiac all the stools x3. 9. Further recommendation to follow. Thank you for letting me participate in your patient's case management. Yael Archibald MD cc: Yael Archibald MD
--- NOTE | 2017-05-19 08:05 | DS ---
CHIEF COMPLAINT: Mr. Marte was admitted to the hospital with a chief complaint of weakness, fatigue, tiredness, GI bleeding, altered mental status. HISTORY OF PRESENT ILLNESS: The patient came to the ER, last admission. PAST MEDICAL HISTORY: Alcoholic liver disease, cirrhosis. PHYSICAL EXAMINATION: GENERAL: The patient is awake, alert, oriented. VITAL SIGNS: Temperature 98, pulse 90. HEENT: Within normal limits.. NECK: Supple. CHEST: Symmetrical. HEART: Regular. ABDOMEN: Soft. EXTREMITIES: No edema. The patient to get supportive care and GI consultation. The patient showed improvement. DISCHARGE: Back to rehab. DIAGNOSES: 1. Liver disease. 2. Gastrointestinal bleeding. Char Deng MD cc:
== END 2017-05-12 17:29 | DRG 557 ==
LOC: C.ER 14:06 → C.9E 16:25 → C.6T 21:33 → OBSVTOIN 05-08 14:58
PROVIDERS: ADMIT Internal Medicine Pulmonary Disease; ATTEND Internal Medicine Pulmonary Disease
DX: K72.90 Hepatic failure, unspecified without coma (principal); N17.9 Acute kidney failure, unspecified; G93.6 Cerebral edema; E46 Unspecified protein-calorie malnutrition; R18.8 Other ascites; D69.6 Thrombocytopenia, unspecified; E87.2 Acidosis; D68.9 Coagulation defect, unspecified; B19.20 Unspecified viral hepatitis C without hepatic coma; R56.9 Unspecified convulsions; E87.5 Hyperkalemia; J98.11 Atelectasis; K74.60 Unspecified cirrhosis of liver; N18.9 Chronic kidney disease, unspecified; D32.9 Benign neoplasm of meninges, unspecified; D63.8 Anemia in other chronic diseases classified elsewhere; D72.829 Elevated white blood cell count, unspecified; F41.9 Anxiety disorder, unspecified; G62.9 Polyneuropathy, unspecified; K76.6 Portal hypertension; M19.90 Unspecified osteoarthritis, unspecified site; I12.9 Hypertensive chronic kidney disease with stage 1 through stage 4 chronic kidney disease, or unspecified chronic kidney disease; R62.7 Adult failure to thrive; Z87.891 Personal history of nicotine dependence

== ENCOUNTER 2017-05-25 08:31 | Day surgery (SDC) | payer MEDICAID ==
--- NOTE | 2017-05-25 10:36 | CP.SDSHP ---
Same Day Surgery H & P - History Proposed Procedure: US guided paracentesis Pre-Op Diagnosis: Ascites - Allergies Allergies: Allergies No Known Allergies Allergy (Verified 05/04/17 17:56) - Physical Exam Vital Signs: Vital Signs 05/25/17 09:07 Temperature 98.3 F Pulse Rate 70 Respiratory 20 Rate Blood Pressure 134/62 O2 Sat by Pulse 96 Oximetry Mental Status: Alert & Oriented x3 Neuro: WNL Heart: WNL - Impression Impression: Pt with refractory ascites. US guided paracentesis. - Date & Time Date: 05/25/17 Time: 11:30 Short Stay Discharge - Short Stay Discharge Admitting Diagnosis/Reason for Visit: ASCITIS Disposition: HOME/ ROUTINE
--- NOTE | 2017-05-25 10:39 | PCM.SURG1 ---
Surgeon's Initial Post Op Note - Surgeon's Notes Surgeon: Saleem Carroll MD Online Marketer: NONE Type of Anesthesia: Local Pre-Operative Diagnosis: Ascites Operative Findings: US showed a large amount of ascites Post-Operative Diagnosis: Ascites Operation Performed: US guided paracentesis Specimen/Specimens Removed: 9 liters of straw colored fluid Estimated Blood Loss: EBL {In ML}: 0 Blood Products Given: N/A Drains Used: No Drains Post-Op Condition: Fair Date of Surgery/Procedure: 05/25/17 Time of Surgery/Procedure: 10:35
[2017-05-25 11:01] VITALS: BP 117/49; PULSE 82; RESP 18; TEMP 97; O2SAT 97
--- NOTE | 2017-05-29 11:09 | US ---
Date of Procedure: 05/25/2017 PROCEDURE: Ultrasound-guided paracentesis, CPT 97141 Medications: 7 cc 1% Lidocaine HISTORY: Ascites, abdominal pain, cirrhosis TECHNIQUE: Following informed consent , the patient was placed supine on the stretcher and the site was marked. A limited abdominal ultrasound was performed that showed a large amount of intra-abdominal fluid. Procedural time out was called and the Pt's abdomen was marked and prepped and draped in the usual sterile fashion. Ultrasound-guided large volume paracentesis performed. A total of 9 liters of straw colored fluid was removed without complication. IMPRESSION: Ultrasound-guided large volume paracentesis.
== END 2017-05-25 12:54 | disposition home or self-care (01) ==
LOC: C.SPRAD 08:31
PROVIDERS: ATTEND Radiology Vascular & Interventional Radiology
DX: R18.8 Other ascites (principal)

== ENCOUNTER 2017-06-09 17:24 | Inpatient (IN) | payer MEDICAID ==
--- NOTE | 2017-06-09 18:49 | RAD ---
HISTORY: altered mental status COMPARISON: 05/06/2017. FINDINGS: LUNGS: Progressive consolidative changes left lung. PLEURA: Substantial increase in left pleural effusion. CARDIOVASCULAR: Shift of mediastinal structures including the heart to the right. OSSEOUS STRUCTURES: No significant abnormalities. VISUALIZED UPPER ABDOMEN: Normal. OTHER FINDINGS: None. IMPRESSION: Increasing left pleural effusion, progressive compressive atelectasis affecting left lower lobe, left upper lobe.
--- NOTE | 2017-06-09 19:03 | C.PDOC ---
History Of Present Illness Patient is a 57 y/o M with hx of anemia, cirrhosis, htn, DNR/DNI, presenting with altered mental status. Patient was transferred from [facility]. They report that patient is more confused and non-compliant with lactulost. PMD: Dr. Deng Time Seen by Provider: 06/09/17 17:43 Chief Complaint (Nursing): Altered Mental Status History Per: EMS History/Exam Limitations: Clinical Condition Usual Baseline: Unknown Past Medical History Reviewed: Historical Data, Nursing Documentation, Vital Signs Vital Signs: Last Vital Signs Temp 98.1 F 06/09/17 22:31 Pulse 84 06/09/17 22:31 Resp 18 06/09/17 22:31 BP 164/43 H 06/09/17 22:31 Pulse Ox 95 06/09/17 23:34 - Medical History PMH: Anemia, Anxiety, Arthritis, HTN Denies: Chronic Kidney Disease - [facility] Procedures DRAINAGE OF PERITONEAL CAVITY, PERCUTANEOUS APPROACH (05/04/17) TRANSFUSE NONAUT RED BLOOD CELLS IN PERIPH VEIN, OPEN (02/19/17) TRANSFUSE NONAUT RED BLOOD CELLS IN PERIPH VEIN, PERC (05/04/17) ULTRASONOGRAPHY OF ABDOMEN (04/08/17) Family History: States: Unknown Family Hx - Social History Hx Alcohol Use: Yes Hx Substance Use: Yes - Immunization History Hx Tetanus Toxoid Vaccination: No Hx Influenza Vaccination: No Hx Pneumococcal Vaccination: No Review Of Systems Review Of Systems: ROS cannot be obtained secondary to pt's inabilty to answer questions. (patient presenting with altered mental status) Physical Exam - Physical Exam Appears: Chronically Ill Skin: Pale Head: Atraumatic, Normacephalic Eye(s): bilateral: Scleral Icterus Neck: Supple Chest: Symmetrical Cardiovascular: Rhythm Regular Respiratory: Decreased Breath Sounds (decreased air entry at base of lungs, particularly on L side) Gastrointestinal/Abdominal: Soft, No Tenderness, Distention Back: Normal Inspection, No CVA Tenderness Extremity: Normal ROM Neurological/Psych: No Oriented x3 (patient is alert and oriented x 1) ED Course And Treatment - Laboratory Results Result Diagrams: 06/09/17 19:03 06/09/17 19:03 O2 Sat by Pulse Oximetry: 95 Medical Decision Making Medical Decision Making: CXR Findings: LUNGS: Progressive consolidative changes left lung. PLEURA: Substantial increase in left pleural effusion. CARDIOVASCULAR: Shift of mediastinal structures including the heart to the right. OSSEOUS STRUCTURES: No significant abnormalities. VISUALIZED UPPER ABDOMEN: Normal. OTHER FINDINGS: None. IMPRESSION: Increasing left pleural effusion, progressive compressive atelectasis affecting left lower lobe, left upper lobe. Maintaining saturation. Will likely need removal of fluid this admission VBG resulted, lactate of 3.1. Patient does not have any sirs criteria. EKG shows NSR at 70bpm with low voltage. No ST changes Patients labs show anemia. normal wbc and afebrile. elevated lactate consistent with hepatic failure. elevated bilirunin. trop x 1 negative. other labs at baseline. ammonia elevated to 42. lactulose po and rectal ordered. slow hydration ordered. 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 Patient refusing additional IV placements at this time from nurse or MD. He is refusing to let me attempt IV access or try ultrasound guided IV. Patient is taking lactulose po and tolerating po. Dr. Dneg aware. Disposition - Disposition Disposition: HOSPITALIZED Disposition Time: 20:50 Condition: FAIR - Clinical Impression Clinical Impression: Hepatic encephalopathy, Pleural effusion - Scribe Statement The provider has reviewed the documentation as recorded by the Bright Cook Provider Attestation: All medical record entries made by the Bright were at my direction and personally dictated by me. I have reviewed the chart and agree that the record accurately reflects my personal performance of the history, physical exam, medical decision making, and the department course for this patient. I have also personally directed, reviewed, and agree with the discharge instructions and disposition.
[2017-06-09 19:14] LABS: BASO # 0.1 K/uL (0.0-0.2); BASO % 1.4 % (0.0-2.0); EOS # 0.1 K/uL (0.0-0.7); EOS % 1.2 % (0.0-4.0); HEMATOCRIT 31.9 % (35.0-51.0); LYMPH # 1.6 K/uL (1.0-4.3); LYMPH % 27.1 % (20.0-40.0); MEAN CORPUSCULAR HEMOGLOBIN 34.9 pg (27.0-31.0); MEAN CORPUSCULAR HGB CONC 33.4 g/dL (33.0-37.0); MEAN PLATELET VOLUME 8.6 fL (7.2-11.7); MONO # 0.5 K/uL (0.0-0.8); MONO % 7.4 % (0.0-10.0); NRBC % 0.3 % (0.0-2.0); RED CELL DISTRIBUTION WIDTH 21.2 % (11.5-14.5); WHITE BLOOD COUNT 6.1 K/uL (4.8-10.8)
[2017-06-09 19:15] LABS: VENOUS BLOOD GAS BASE EXCESS -5.9 mmol/L (0.0-2.0); VENOUS BLOOD GAS PCO2 41 mmHg (40-60)
[2017-06-09 19:17] LABS: MEAN CELL VOLUME 104.4 fL (80.0-94.0)
[2017-06-09 19:18] LABS: INR 1.5
[2017-06-09 19:19] LABS: ALCOHOL SERUM < 10 mg/dl (0-10); CALCIUM 7.4 mg/dl (8.6-10.4); GFR AFRICAN-AMERICAN 55; GLUCOSE,RANDOM 106 mg/dL (75-110); TOTAL PROTEIN 7.5 g/dL (6.3-8.3)
[2017-06-09 19:23] LABS: ALB/GLOB RATIO 0.4 (1.0-2.1); ALKALINE PHOSPHATASE 132 U/L (38-126); ALT/SGPT 42 U/L (21-72); AST/SGOT 61 U/L (17-59); BLOOD UREA NITROGEN 33 mg/dL (9-20); CARBON DIOXIDE 18 mmol/L (22-30); CHLORIDE 115 mmol/L (98-107); MAGNESIUM 1.6 mg/dL (1.6-2.3); PHOSPHOROUS 4.7 mg/dL (2.5-4.5); SODIUM 139 mmol/L (132-148)
[2017-06-09] MEDS ORDERED: Sodium Chloride 0.9% 1,000 ML IV ONE (20:15)
[2017-06-09] MEDS ORDERED: Sodium Chloride 0.9% 500 ML IV ONE (20:16)
--- NOTE | 2017-06-09 20:48 | CT ---
EXAM: CT Head Without Intravenous Contrast EXAM DATE/TIME: 06/09/2017 6:14 PM CLINICAL HISTORY: 57 years old, male; Signs and symptoms; Altered mental status/memory loss; Additional info: AMS TECHNIQUE: Axial computed tomography images of the head/brain without intravenous contrast. All CT scans at this facility use one or more dose reduction techniques, viz.: automated exposure control; ma/kV adjustment per patient size (including targeted exams where dose is matched to indication; i.e. head); or iterative reconstruction technique. COMPARISON: CT head 05/06/17 FINDINGS: Brain: There is prominence of the of sulci gyri and ventricles. There is no midline shift. There is decreased attenuation in periventricular white matter. There is a 2.6 x 2.3 cm hyperdense left frontal extra-axial mass arising from the left sphenoid. There is associated vasogenic edema greatest in the left frontal lobe. There are no focal hemorrhages. Wilson-white differentiation is visualized. Ventricles: See above Bones/joints: Bones: Cranial vault is intact. Soft tissues: unremarkable Sinuses: There is no acute sinusitis. Mastoid air cells: Ears and mastoids: Middle ears and mastoids are unremarkable. Orbits: Orbital contents are unremarkable. 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
[2017-06-09 22:44] LABS: RBC URINE 24 /hpf (0-3); URINE BACTERIA RARE (<OCC); URINE BILIRUBIN NEGATIVE (NEGATIVE); URINE BLOOD 3+ (NEGATIVE); URINE COLOR Yellow (YELLOW); URINE GLUCOSE (UA) NORMAL (Normal); URINE HYALINE CAST >20 /lpf (0-2); URINE KETONE NEGATIVE (NEGATIVE); URINE LEUKOCYTE ESTERASE NEG Leu/uL (Negative); URINE PROTEIN NEGATIVE (NEGATIVE); URINE UROBILINOGEN NORMAL mg/dL (0.2-1.0); WBC URINE 2 /hpf (0-5)
[2017-06-10] MEDS ORDERED: Magnesium Hydroxide Susp 30 ml UD PO PRN (07:16)
[2017-06-10] MEDS: Pantoprazole 40 mg EC Tab PO SCH (09:51)
[2017-06-10] MEDS: Epoetin Alfa 20000 UNIT/ML Inj SC SCH (09:53)
[2017-06-10] MEDS: Calamine-Zinc Oxide Lotion (120 ml) EXT SCH (10:04)
[2017-06-10] MEDS ORDERED: [UNRECOGNIZED DRUG - OTHER] TP SCH (14:00)
[2017-06-11 09:12] LABS: BASO # 0.1 K/uL (0.0-0.2); EOS # 0.1 K/uL (0.0-0.7); EOS % 1.3 % (0.0-4.0); HEMATOCRIT 27.3 % (35.0-51.0); LYMPH # 1.7 K/uL (1.0-4.3); LYMPH % 24.2 % (20.0-40.0); MEAN CELL VOLUME 104.3 fL (80.0-94.0); MEAN CORPUSCULAR HEMOGLOBIN 34.6 pg (27.0-31.0); MEAN CORPUSCULAR HGB CONC 33.2 g/dL (33.0-37.0); MEAN PLATELET VOLUME 7.8 fL (7.2-11.7); MONO # 0.7 K/uL (0.0-0.8); MONO % 9.8 % (0.0-10.0); NRBC % 0.2 % (0.0-2.0); RED CELL DISTRIBUTION WIDTH 20.8 % (11.5-14.5); WHITE BLOOD COUNT 7.1 K/uL (4.8-10.8)
[2017-06-11 09:22] LABS: ALB/GLOB RATIO 0.4 (1.0-2.1); BILIRUBIN,TOTAL 3.2 mg/dL (0.2-1.3); CALCIUM 7.4 mg/dl (8.6-10.4); TOTAL PROTEIN 6.2 g/dL (6.3-8.3)
[2017-06-11 09:29] LABS: POTASSIUM 4.4 mmol/L (3.6-5.2)
[2017-06-11] MEDS: Pantoprazole 40 mg EC Tab PO SCH (10:51)
[2017-06-11] MEDS: Calamine-Zinc Oxide Lotion (120 ml) EXT SCH (10:53)
[2017-06-12] MEDS: Pantoprazole 40 mg EC Tab PO SCH (09:46)
[2017-06-12] MEDS: Calamine-Zinc Oxide Lotion (120 ml) EXT SCH (09:47)
--- NOTE | 2017-06-12 10:09 | CP.PCM.PN ---
Subjective - Date & Time of Evaluation Date of Evaluation: 06/12/17 Time of Evaluation: 09:00 - Subjective Subjective: PGY-[address] Deng Patient seen and examined at bedside. No reported acute events overnight. Patient states he feels great today. Patient denies headache, shortness of breath coughs, chest pain, abdominal pain, nausea, or vomiting. Objective - Vital Signs/Intake and Output Vital Signs (last 24 hours): Temp Pulse Resp BP Pulse Ox 98.5 F 80 18 134/68 97 06/12/17 07:00 06/12/17 07:00 06/12/17 07:00 06/12/17 07:00 06/12/17 07:00 Intake and Output: 06/12/17 06/12/17 06:59 18:59 Intake Total 200 Balance 200 - Medications Medications: Current Medications Acetaminophen (Tylenol 325mg Tab) 650 mg PO Q4H PRN PRN Reason: Pain, Mild (1-3) Calamine (Calamine Lotion) 120 ml EXT DAILY [facility] Last Admin: 06/12/17 09:47 Dose: 120 ml Epoetin Kyree (Procrit) 20,000 unit SC TTS [facility] Last Admin: 06/10/17 09:53 Dose: Not Given Ferrous Sulfate (Feosol) 325 mg PO DAILY [facility] Last Admin: 06/12/17 09:46 Dose: 325 mg Folic Acid (Folic Acid) 1 mg PO DAILY [facility] Last Admin: 06/12/17 09:46 Dose: 1 mg Ibuprofen (Motrin Tab) 400 mg PO Q6H PRN PRN Reason: Pain, moderate (4-7) Lactulose (Enulose) 20 gm PO Q6H [facility] Last Admin: 06/12/17 05:53 Dose: 20 gm Levetiracetam (Keppra) 500 mg PO BID [facility] Last Admin: 06/12/17 09:46 Dose: 500 mg Loratadine (Claritin) 10 mg PO DAILY PRN PRN Reason: Itching / Pruritus Last Admin: 06/10/17 09:51 Dose: 10 mg Lorazepam (Ativan) 1 mg IM Q8H PRN PRN Reason: Anxiety Last Admin: 06/10/17 19:02 Dose: 1 mg Magnesium Hydroxide (Milk Of Magnesia) 30 ml PO DAILY PRN PRN Reason: Constipation Nicotine (Nicoderm Cq) 1 patch TD DAILY [facility] Last Admin: 06/12/17 09:46 Dose: 1 patch Pantoprazole Sodium (Protonix Ec Tab) 40 mg PO DAILY [facility] Last Admin: 06/12/17 09:46 Dose: 40 mg Pneumococcal Polyvalent Vaccine (Pneumovax 23 Vaccine) 0.5 ml IM .ONCE ONE Stop: 06/14/17 10:01 Propranolol HCl (Inderal) 10 mg PO TID [facility] Last Admin: 06/12/17 09:46 Dose: 10 mg Spironolactone (Aldactone) 25 mg PO DAILY [facility] Last Admin: 06/12/17 09:46 Dose: 25 mg Thiamine HCl (Vitamin B1 Tab) 100 mg PO DAILY [facility] Last Admin: 06/12/17 09:46 Dose: 100 mg Torsemide (Demadex) 10 mg PO DAILY [facility] Last Admin: 06/12/17 09:47 Dose: 10 mg - Labs Labs: 06/11/17 08:47 06/11/17 08:47 PT 17.2 SECONDS (9.7-12.2) H 06/09/17 19:03 INR 1.5 06/09/17 19:03 APTT 27 SECONDS (21-34) 06/09/17 19:03 - Constitutional Appears: No Acute Distress, Chronically Ill - Head Exam Head Exam: ATRAUMATIC, NORMOCEPHALIC - Eye Exam Eye Exam: Normal appearance - ENT Exam ENT Exam: Mucous Membranes Moist, Normal Exam - Respiratory Exam Respiratory Exam: Clear to Ausculation Bilateral. absent: Wheezes, Respiratory Distress - Cardiovascular Exam Cardiovascular Exam: REGULAR RHYTHM, +S1, +S2. absent: Murmur - GI/Abdominal Exam GI & Abdominal Exam: Distended, Normal Bowel Sounds. absent: Tenderness - Extremities Exam Extremities Exam: Normal Capillary Refill, Pedal Edema. absent: Joint Swelling , Tenderness - Neurological Exam Neurological Exam: Alert, Awake, Oriented x3 - Psychiatric Exam Psychiatric exam: Normal Affect, Normal Mood - Skin Skin Exam: Dry, Warm Assessment and Plan - Assessment and Plan (Free Text) Assessment: Altered Mental Status Weakness and fatigue improving, AAOx3 Ammonia chronically elevated due to liver failure Lactulose 20mg Q6H CT head 06/09/17-Left sphenoid wing meningioma with associated vasogenic edema, similar finding seen on the prior study 05/06/17; mild atrophy and small vessel disease, no acute intracranial abnormality Ascites 2/2 to liver failure Special procedure paracentesis pending Last paracentesis on 05/25/17: 9 liters of fluid removed, patient tolerated procedure well Lactulose 20mg Q6H Continue spironolactone and propanolol for prophylaxis Meningioma patient declined neurosurgical intervention CT head this admission showed similar findings as previous DNR/DNI Left pleural effusion/atelectasis CXR on 06/09/17 showed Increasing left pleural effusion, progressive compressive atelectasis affecting left lower lobe, left upper lobe Blood culture negative for 48 hours Saturating at 97% room air Chronic Anemia Hgb stable at 9.1 CKD Stable BUN/Cr: 31/1.6 avoid nephrotoxic agents Hx of Syphilis Patient was treated with PO Doxycycline Patient will need recheck as outpatient Prophylaxis Pepcid SCD chemical anticoagulation contraindicated due to anemia Management per Dr. Deng
--- NOTE | 2017-06-12 10:54 | HP ---
HISTORY OF PRESENT ILLNESS: Mr. Marte is admitted with complaint of swelling of the abdomen, shortness of breath, weakness. The patient came to the ER, had hepatic encephalopathy. Prior to admission, the patient underwent seizure treatment. Very poor IV access. PHYSICAL EXAMINATION: GENERAL: Awake, alert, oriented. VITAL SIGNS: Temperature 98.7, pulse is 92. HEENT: Within normal limits. NECK: Supple. CHEST: Symmetrical . HEART: Regular. ABDOMEN: Distended. EXTREMITIES: No edema. IMPRESSION: The patient suffers from congestive heart failure. PLAN: The patient to get bedrest, supportive care, as well as therapy. Char Deng MD
[2017-06-12 11:54] LABS: BASO # 0.1 K/uL (0.0-0.2); BASO % 0.7 % (0.0-2.0); EOS # 0.1 K/uL (0.0-0.7); EOS % 1.2 % (0.0-4.0); HEMATOCRIT 28.6 % (35.0-51.0); LYMPH # 0.9 K/uL (1.0-4.3); LYMPH % 12.5 % (20.0-40.0); MEAN CELL VOLUME 103.7 fL (80.0-94.0); MEAN CORPUSCULAR HGB CONC 33.7 g/dL (33.0-37.0); MEAN PLATELET VOLUME 7.3 fL (7.2-11.7); MONO # 0.6 K/uL (0.0-0.8); NRBC % 0.2 % (0.0-2.0); RED CELL DISTRIBUTION WIDTH 20.7 % (11.5-14.5); WHITE BLOOD COUNT 7.5 K/uL (4.8-10.8)
[2017-06-12 12:37] LABS: ALB/GLOB RATIO 0.4 (1.0-2.1); BILIRUBIN,TOTAL 3.1 mg/dL (0.2-1.3); CALCIUM 7.5 mg/dl (8.6-10.4); POTASSIUM 4.4 mmol/L (3.6-5.2); TOTAL PROTEIN 6.2 g/dL (6.3-8.3)
--- NOTE | 2017-06-12 13:30 | CP.PCM.PN ---
Subjective - Date & Time of Evaluation Date of Evaluation: 06/12/17 Time of Evaluation: 12:50 - Subjective Subjective: Patient brought down to IR for ultrasound guided paracentesis. Pre-procedure ultrasound demonstrated large volume ascites. The patient refused to cooperate with the remainder of the examination. Paracentesis was not performed. Please reconsult IR when the patient is amenable to the procedure. Objective - Vital Signs/Intake and Output Vital Signs (last 24 hours): Temp Pulse Resp BP Pulse Ox 98.5 F 80 18 134/68 97 06/12/17 07:00 06/12/17 07:00 06/12/17 07:00 06/12/17 07:00 06/12/17 07:00 Intake and Output: 06/12/17 06/12/17 06:59 18:59 Intake Total 200 Balance 200 - Medications Medications: Current Medications Acetaminophen (Tylenol 325mg Tab) 650 mg PO Q4H PRN PRN Reason: Pain, Mild (1-3) Calamine (Calamine Lotion) 120 ml EXT DAILY [facility] Last Admin: 06/12/17 09:47 Dose: 120 ml Epoetin Kyree (Procrit) 20,000 unit SC TTS [facility] Last Admin: 06/10/17 09:53 Dose: Not Given Ferrous Sulfate (Feosol) 325 mg PO DAILY [facility] Last Admin: 06/12/17 09:46 Dose: 325 mg Folic Acid (Folic Acid) 1 mg PO DAILY [facility] Last Admin: 06/12/17 09:46 Dose: 1 mg Ibuprofen (Motrin Tab) 400 mg PO Q6H PRN PRN Reason: Pain, moderate (4-7) Lactulose (Enulose) 20 gm PO Q6H [facility] Last Admin: 06/12/17 11:54 Dose: 20 gm Levetiracetam (Keppra) 500 mg PO BID [facility] Last Admin: 06/12/17 09:46 Dose: 500 mg Loratadine (Claritin) 10 mg PO DAILY PRN PRN Reason: Itching / Pruritus Last Admin: 06/10/17 09:51 Dose: 10 mg Lorazepam (Ativan) 1 mg IM Q8H PRN PRN Reason: Anxiety Last Admin: 06/10/17 19:02 Dose: 1 mg Magnesium Hydroxide (Milk Of Magnesia) 30 ml PO DAILY PRN PRN Reason: Constipation Nicotine (Nicoderm Cq) 1 patch TD DAILY [facility] Last Admin: 06/12/17 09:46 Dose: 1 patch Pantoprazole Sodium (Protonix Ec Tab) 40 mg PO DAILY [facility] Last Admin: 06/12/17 09:46 Dose: 40 mg Pneumococcal Polyvalent Vaccine (Pneumovax 23 Vaccine) 0.5 ml IM .ONCE ONE Stop: 06/14/17 10:01 Propranolol HCl (Inderal) 10 mg PO TID [facility] Last Admin: 06/12/17 09:46 Dose: 10 mg Spironolactone (Aldactone) 25 mg PO DAILY [facility] Last Admin: 06/12/17 09:46 Dose: 25 mg Thiamine HCl (Vitamin B1 Tab) 100 mg PO DAILY [facility] Last Admin: 06/12/17 09:46 Dose: 100 mg Torsemide (Demadex) 10 mg PO DAILY [facility] Last Admin: 06/12/17 09:47 Dose: 10 mg - Labs Labs: 06/12/17 11:40 06/12/17 11:40 PT 17.2 SECONDS (9.7-12.2) H 06/09/17 19:03 INR 1.5 06/09/17 19:03 APTT 27 SECONDS (21-34) 06/09/17 19:03
--- NOTE | 2017-06-12 13:34 | US ---
PROCEDURE: ULTRASOUND-GUIDED PARACENTESIS CLINICAL HISTORY: 57-year-old male with cirrhosis and recurrent symptomatic ascites is referred to Interventional Radiology for ultrasound-guided paracentesis. COMPARISON: Ultrasound-guided paracentesis performed 05/25/2017 PROCEDURE: 1. Limited ultrasound of the right vianca abdomen. PRE-PROCEDURE FINDINGS: 1. Large volume ascites. INTERVENTIONAL RADIOLOGIST: Lane Pham M.D. (the attending was present for the entire procedure.) PROCEDURE DESCRIPTION AND FINDINGS: The patient was placed on the ultrasound table in the supine position. Preliminary ultrasound images of the right vianca abdomen demonstrate a large amount of ascites. After initial sonographic evaluation, the patient refused to cooperate with remainder of the exam. Paracentesis was not performed. The patient was transferred back to the floor in stable condition. IMPRESSION: Preprocedural ultrasound demonstrated a large volume ascites. The patient refused to cooperate with the examination. A paracentesis was not performed.
--- NOTE | 2017-06-12 22:20 | CARD ---
APPROVED REPORT EKG Measurement Heart [id number] <Conclusion> Normal sinus rhythm Low voltage QRS Borderline ECG
[2017-06-13] MEDS: Pantoprazole 40 mg EC Tab PO SCH (09:52)
[2017-06-13] MEDS: Calamine-Zinc Oxide Lotion (120 ml) EXT SCH (09:53)
[2017-06-13] MEDS: Epoetin Alfa 20000 UNIT/ML Inj SC SCH ×2 (10:05→12:03)
--- NOTE | 2017-06-13 15:07 | CP.PCM.PN ---
Subjective - Date & Time of Evaluation Date of Evaluation: 06/13/17 Time of Evaluation: 10:00 - Subjective Subjective: PGY2 medicine progress note Patient seen and examined. Patient appears fatigued but will respond to questions if prompted. Per nursing, patient taking medications, including lactulose and has had several bowel movements. Patient was not able to cooperate yesterday with IR to have paracentesis. Objective - Vital Signs/Intake and Output Vital Signs (last 24 hours): Temp Pulse Resp BP Pulse Ox 98.8 F 78 20 93/56 L 100 06/13/17 08:00 06/13/17 08:00 06/13/17 08:00 06/13/17 08:00 06/13/17 08:00 Intake and Output: 06/13/17 06/13/17 06:59 18:59 Intake Total 480 250 Balance 480 250 - Medications Medications: Current Medications Acetaminophen (Tylenol 325mg Tab) 650 mg PO Q4H PRN PRN Reason: Pain, Mild (1-3) Calamine (Calamine Lotion) 120 ml EXT DAILY [facility] Last Admin: 06/13/17 09:53 Dose: 120 ml Epoetin Kyree (Procrit) 20,000 unit SC TTS [facility] Last Admin: 06/13/17 12:03 Dose: 20,000 unit Ferrous Sulfate (Feosol) 325 mg PO DAILY [facility] Last Admin: 06/13/17 09:52 Dose: 325 mg Folic Acid (Folic Acid) 1 mg PO DAILY [facility] Last Admin: 06/13/17 09:52 Dose: 1 mg Ibuprofen (Motrin Tab) 400 mg PO Q6H PRN PRN Reason: Pain, moderate (4-7) Lactulose (Enulose) 20 gm PO Q6H [facility] Last Admin: 06/13/17 11:29 Dose: 20 gm Levetiracetam (Keppra) 500 mg PO BID [facility] Last Admin: 06/13/17 09:52 Dose: 500 mg Loratadine (Claritin) 10 mg PO DAILY PRN PRN Reason: Itching / Pruritus Last Admin: 06/10/17 09:51 Dose: 10 mg Lorazepam (Ativan) 1 mg IM Q8H PRN PRN Reason: Anxiety Last Admin: 06/10/17 19:02 Dose: 1 mg Magnesium Hydroxide (Milk Of Magnesia) 30 ml PO DAILY PRN PRN Reason: Constipation Nicotine (Nicoderm Cq) 1 patch TD DAILY [facility] Last Admin: 06/13/17 09:53 Dose: 1 patch Pantoprazole Sodium (Protonix Ec Tab) 40 mg PO DAILY [facility] Last Admin: 06/13/17 09:52 Dose: 40 mg Pneumococcal Polyvalent Vaccine (Pneumovax 23 Vaccine) 0.5 ml IM .ONCE ONE Stop: 06/14/17 10:01 Propranolol HCl (Inderal) 10 mg PO TID [facility] Last Admin: 06/13/17 13:24 Dose: 10 mg Spironolactone (Aldactone) 25 mg PO DAILY [facility] Last Admin: 06/13/17 09:52 Dose: 25 mg Thiamine HCl (Vitamin B1 Tab) 100 mg PO DAILY [facility] Last Admin: 06/13/17 09:52 Dose: 100 mg Torsemide (Demadex) 10 mg PO DAILY [facility] Last Admin: 06/13/17 09:53 Dose: 10 mg - Labs Labs: 06/12/17 11:40 06/12/17 11:40 PT 17.2 SECONDS (9.7-12.2) H 06/09/17 19:03 INR 1.5 06/09/17 19:03 APTT 27 SECONDS (21-34) 06/09/17 19:03 - Constitutional Appears: No Acute Distress, Chronically Ill - Head Exam Head Exam: ATRAUMATIC - Eye Exam Eye Exam: EOMI - ENT Exam ENT Exam: Mucous Membranes Moist - Respiratory Exam Respiratory Exam: Decreased Breath Sounds, Clear to Ausculation Bilateral - Cardiovascular Exam Cardiovascular Exam: +S1, +S2 - GI/Abdominal Exam GI & Abdominal Exam: Distended (ascites) Additional comments: reducible umbilical hernia - Extremities Exam Extremities Exam: Normal Inspection - Neurological Exam Neurological Exam: Awake - Skin Skin Exam: Warm Assessment and Plan - Assessment and Plan (Free Text) Assessment: Altered Mental Status Ammonia 69 on 06/12, could not repeat level today as blood could not be drawn after multiple attempts however patient is compliant with medical therapy Lactulose 20mg Q6H CT head 06/09/17-Left sphenoid wing meningioma with associated vasogenic edema, similar finding seen on the prior study 05/06/17; mild atrophy and small vessel disease, no acute intracranial abnormality Ascites 2/2 to liver failure paracentesis could not be performed 06/12 as patient could not cooperate Last paracentesis on 05/25/17: 9 liters of fluid removed, patient tolerated procedure well Lactulose 20mg Q6H Continue spironolactone and propanolol 10mg TID Meningioma patient declined neurosurgical intervention CT head this admission showed similar findings as previous DNR/DNI Left pleural effusion/atelectasis CXR on 06/09/17 showed Increasing left pleural effusion, progressive compressive atelectasis affecting left lower lobe, left upper lobe Blood culture negative for 48 hours Saturating at 97% room air Chronic Anemia Hgb stable at 9.6 on labs from 06/12 CKD Stable BUN/Cr: 26/1.5 avoid nephrotoxic agents Hx of Syphilis Patient was treated with PO Doxycycline Patient will need recheck as outpatient Prophylaxis Pepcid SCD chemical anticoagulation contraindicated due to anemia Management per Dr. Deng
[2017-06-13 23:45] VITALS: RESP 20
[2017-06-14 08:15] LABS: BASO % 0.7 % (0.0-2.0); EOS # 0.1 K/uL (0.0-0.7); EOS % 0.9 % (0.0-4.0); HEMATOCRIT 26.1 % (35.0-51.0); LYMPH # 1.8 K/uL (1.0-4.3); LYMPH % 26.3 % (20.0-40.0); MEAN CELL VOLUME 104.7 fL (80.0-94.0); MEAN CORPUSCULAR HEMOGLOBIN 36.7 pg (27.0-31.0); MEAN PLATELET VOLUME 8.1 fL (7.2-11.7); MONO # 0.8 K/uL (0.0-0.8); MONO % 11.9 % (0.0-10.0); NRBC % 0.1 % (0.0-2.0); RED CELL DISTRIBUTION WIDTH 20.3 % (11.5-14.5); WHITE BLOOD COUNT 6.8 K/uL (4.8-10.8)
[2017-06-14 08:33] LABS: ALB/GLOB RATIO 0.3 (1.0-2.1); BILIRUBIN,TOTAL 1.9 mg/dL (0.2-1.3); CALCIUM 7.5 mg/dl (8.6-10.4); MAGNESIUM 1.6 mg/dL (1.6-2.3); PHOSPHOROUS 3.1 mg/dL (2.5-4.5); POTASSIUM 4.2 mmol/L (3.6-5.2); TOTAL PROTEIN 7.2 g/dL (6.3-8.3)
[2017-06-14] MEDS: Pantoprazole 40 mg EC Tab PO SCH (09:58)
[2017-06-14] MEDS: Calamine-Zinc Oxide Lotion (120 ml) EXT SCH (09:59)
[2017-06-14] MEDS ORDERED: Pneumococcal 23-Valent Vaccine IM ONE (10:00)
[2017-06-14] MEDS ORDERED: Influenza Vaccine 60 mcg/0.5 mL SYR (4YR UP) IM ONE (10:00)
--- NOTE | 2017-06-14 14:01 | CP.PCM.PN ---
Subjective - Date & Time of Evaluation Date of Evaluation: 06/14/17 Time of Evaluation: 10:00 - Subjective Subjective: PGY2 medicine progress note for Dr. Deng Patient seen and examined. Patient more alert today and answers questions when asked. Patient states he would like paracentesis today. Objective - Vital Signs/Intake and Output Vital Signs (last 24 hours): Temp Pulse Resp BP Pulse Ox 98.3 F 70 20 109/46 L 98 06/14/17 07:32 06/14/17 07:32 06/14/17 07:32 06/14/17 07:32 06/14/17 07:32 Intake and Output: 06/14/17 06/14/17 06:59 18:59 Intake Total 240 Balance 240 - Medications Medications: Current Medications Acetaminophen (Tylenol 325mg Tab) 650 mg PO Q4H PRN PRN Reason: Pain, Mild (1-3) Calamine (Calamine Lotion) 120 ml EXT DAILY [facility] Last Admin: 06/14/17 09:59 Dose: 120 ml Epoetin Kyree (Procrit) 20,000 unit SC TTS [facility] Last Admin: 06/13/17 12:03 Dose: 20,000 unit Ferrous Sulfate (Feosol) 325 mg PO DAILY [facility] Last Admin: 06/14/17 09:58 Dose: 325 mg Folic Acid (Folic Acid) 1 mg PO DAILY [facility] Last Admin: 06/14/17 09:56 Dose: 1 mg Ibuprofen (Motrin Tab) 400 mg PO Q6H PRN PRN Reason: Pain, moderate (4-7) Lactulose (Enulose) 20 gm PO Q6H [facility] Last Admin: 06/14/17 11:45 Dose: 20 gm Levetiracetam (Keppra) 500 mg PO BID [facility] Last Admin: 06/14/17 09:58 Dose: 500 mg Loratadine (Claritin) 10 mg PO DAILY PRN PRN Reason: Itching / Pruritus Last Admin: 06/10/17 09:51 Dose: 10 mg Lorazepam (Ativan) 1 mg IM Q8H PRN PRN Reason: Anxiety Last Admin: 06/10/17 19:02 Dose: 1 mg Magnesium Hydroxide (Milk Of Magnesia) 30 ml PO DAILY PRN PRN Reason: Constipation Nicotine (Nicoderm Cq) 1 patch TD DAILY [facility] Last Admin: 06/14/17 09:56 Dose: 1 patch Pantoprazole Sodium (Protonix Ec Tab) 40 mg PO DAILY [facility] Last Admin: 06/14/17 09:58 Dose: 40 mg Propranolol HCl (Inderal) 10 mg PO TID [facility] Last Admin: 06/14/17 13:43 Dose: 10 mg Spironolactone (Aldactone) 25 mg PO DAILY [facility] Last Admin: 06/14/17 09:58 Dose: 25 mg Thiamine HCl (Vitamin B1 Tab) 100 mg PO DAILY [facility] Last Admin: 06/14/17 09:58 Dose: 100 mg Torsemide (Demadex) 10 mg PO DAILY [facility] Last Admin: 06/14/17 09:56 Dose: 10 mg - Labs Labs: 06/14/17 07:54 06/14/17 07:54 PT 17.2 SECONDS (9.7-12.2) H 06/09/17 19:03 INR 1.5 06/09/17 19:03 APTT 27 SECONDS (21-34) 06/09/17 19:03 - Constitutional Appears: No Acute Distress, Chronically Ill - Head Exam Head Exam: ATRAUMATIC - Eye Exam Eye Exam: EOMI - ENT Exam ENT Exam: Mucous Membranes Moist - Respiratory Exam Respiratory Exam: Decreased Breath Sounds, Clear to Ausculation Bilateral - Cardiovascular Exam Cardiovascular Exam: +S1, +S2 - GI/Abdominal Exam GI & Abdominal Exam: Distended (ascites) Additional comments: reducible umbilical hernia - Extremities Exam Extremities Exam: Normal Inspection - Neurological Exam Neurological Exam: Alert, Awake - Skin Skin Exam: Warm Assessment and Plan - Assessment and Plan (Free Text) Assessment: Altered Mental Status Ammonia 92 on 06/14. Patient alert today and states he would like to have paracentesis Ammonia 69 on 06/12, could not repeat level today as blood could not be drawn after multiple attempts however patient is compliant with medical therapy Lactulose 20mg Q6H CT head 06/09/17-Left sphenoid wing meningioma with associated vasogenic edema, similar finding seen on the prior study 05/06/17; mild atrophy and small vessel disease, no acute intracranial abnormality Ascites 2/2 to liver failure 06/14/17: pt agreeable for paracentesis today paracentesis could not be performed 06/12 as patient could not cooperate Last paracentesis on 05/25/17: 9 liters of fluid removed, patient tolerated procedure well Lactulose 20mg Q6H Continue spironolactone and propanolol 10mg TID Meningioma patient declined neurosurgical intervention CT head this admission showed similar findings as previous DNR/DNI Left pleural effusion/atelectasis CXR on 06/09/17 showed Increasing left pleural effusion, progressive compressive atelectasis affecting left lower lobe, left upper lobe Blood culture negative for 48 hours Saturating at 97% room air Chronic Anemia Hgb stable at 9.1 on labs from 06/14 CKD Stable BUN/Cr: 29/1.5 avoid nephrotoxic agents Hx of Syphilis Patient was treated with PO Doxycycline Patient will need recheck as outpatient Prophylaxis Pepcid SCD chemical anticoagulation contraindicated due to anemia Management per Dr. Deng
[2017-06-15] MEDS: Pantoprazole 40 mg EC Tab PO SCH (10:14)
[2017-06-15] MEDS: Calamine-Zinc Oxide Lotion (120 ml) EXT SCH (10:28)
--- NOTE | 2017-06-15 11:32 | US ---
Date of Procedure: 06/14/2017 PROCEDURE: Ultrasound-guided paracentesis, CPT 78212 Medications: 7 cc 1% Lidocaine HISTORY: Ascites, abdominal pain, cirrhosis TECHNIQUE: Following informed consent , the patient was placed supine on the stretcher and the site was marked. A limited abdominal ultrasound was performed that showed a large amount of intra-abdominal fluid. Procedural time out was called and the Pt's abdomen was marked and prepped and draped in the usual sterile fashion. Ultrasound-guided large volume paracentesis performed. A total of 3.5 liters of straw colored fluid was removed without complication. IMPRESSION: Ultrasound-guided large volume paracentesis.
[2017-06-15] MEDS: Epoetin Alfa 20000 UNIT/ML Inj SC SCH (15:20)
[2017-06-15 16:31] VITALS: O2SAT 98
--- NOTE | 2017-06-15 16:36 | CP.PCM.PN ---
Subjective - Date & Time of Evaluation Date of Evaluation: 06/15/17 Time of Evaluation: 11:10 - Subjective Subjective: PGY-[address] Deng Patient seen and examined at bedside. No reported acute events overnight. Patient is alert and awake, states he had a paracentesis yesterday. No current complaints. Objective - Vital Signs/Intake and Output Vital Signs (last 24 hours): Temp Pulse Resp BP Pulse Ox 99.9 F H 87 20 102/47 L 98 06/15/17 16:30 06/15/17 16:30 06/15/17 16:30 06/15/17 16:30 06/15/17 16:30 Intake and Output: 06/15/17 06/15/17 06:59 18:59 Intake Total 250 860 Balance 250 860 - Medications Medications: Current Medications Acetaminophen (Tylenol 325mg Tab) 650 mg PO Q4H PRN PRN Reason: Pain, Mild (1-3) Calamine (Calamine Lotion) 120 ml EXT DAILY [facility] Last Admin: 06/15/17 10:28 Dose: 120 ml Epoetin Kyree (Procrit) 20,000 unit SC TTS [facility] Last Admin: 06/15/17 15:20 Dose: 20,000 unit Ferrous Sulfate (Feosol) 325 mg PO DAILY [facility] Last Admin: 06/15/17 10:15 Dose: 325 mg Folic Acid (Folic Acid) 1 mg PO DAILY [facility] Last Admin: 06/15/17 10:15 Dose: 1 mg Ibuprofen (Motrin Tab) 400 mg PO Q6H PRN PRN Reason: Pain, moderate (4-7) Lactulose (Enulose) 20 gm PO Q6H [facility] Last Admin: 06/15/17 12:00 Dose: 20 gm Levetiracetam (Keppra) 500 mg PO BID [facility] Last Admin: 06/15/17 10:14 Dose: 500 mg Loratadine (Claritin) 10 mg PO DAILY PRN PRN Reason: Itching / Pruritus Last Admin: 06/15/17 10:15 Dose: 10 mg Lorazepam (Ativan) 1 mg IM Q8H PRN PRN Reason: Anxiety Last Admin: 06/10/17 19:02 Dose: 1 mg Magnesium Hydroxide (Milk Of Magnesia) 30 ml PO DAILY PRN PRN Reason: Constipation Nicotine (Nicoderm Cq) 1 patch TD DAILY [facility] Last Admin: 06/15/17 10:15 Dose: 1 patch Pantoprazole Sodium (Protonix Ec Tab) 40 mg PO DAILY [facility] Last Admin: 06/15/17 10:14 Dose: 40 mg Propranolol HCl (Inderal) 10 mg PO TID [facility] Last Admin: 06/15/17 15:20 Dose: 10 mg Spironolactone (Aldactone) 25 mg PO DAILY [facility] Last Admin: 06/15/17 10:15 Dose: 25 mg Thiamine HCl (Vitamin B1 Tab) 100 mg PO DAILY [facility] Last Admin: 06/15/17 10:14 Dose: 100 mg Torsemide (Demadex) 10 mg PO DAILY [facility] Last Admin: 06/15/17 10:15 Dose: 10 mg - Labs Labs: 06/14/17 07:54 06/14/17 07:54 PT 17.2 SECONDS (9.7-12.2) H 06/09/17 19:03 INR 1.5 06/09/17 19:03 APTT 27 SECONDS (21-34) 06/09/17 19:03 - Constitutional Appears: Non-toxic, No Acute Distress, Chronically Ill - Head Exam Head Exam: ATRAUMATIC, NORMOCEPHALIC - Eye Exam Eye Exam: Normal appearance - ENT Exam ENT Exam: Mucous Membranes Moist - Respiratory Exam Respiratory Exam: Clear to Ausculation Bilateral, NORMAL BREATHING PATTERN. absent: Respiratory Distress - Cardiovascular Exam Cardiovascular Exam: REGULAR RHYTHM, +S1, +S2 - GI/Abdominal Exam GI & Abdominal Exam: Distended (significantly reduced in seize compare to one day prior), Soft, Hernia (reducible umbilical hernia) - Extremities Exam Extremities Exam: Normal Inspection - Neurological Exam Neurological Exam: Alert, Awake - Skin Skin Exam: Dry, Warm Assessment and Plan - Assessment and Plan (Free Text) Assessment: Altered Mental Status Mental status improving Ammonia 92 on 06/14 Ammonia 69 on 06/12 Continue Lactulose 20mg Q6H CT head 06/09/17-Left sphenoid wing meningioma with associated vasogenic edema, similar finding seen on the prior study 05/06/17; mild atrophy and small vessel disease, no acute intracranial abnormality Ascites 2/2 to liver failure 06/14/17 pt underwent U/S guided paracentesis, 3.5L removed paracentesis could not be performed 06/12 as patient could not cooperate Previous paracentesis on 05/25/17: 9 liters of fluid removed, patient tolerated procedure well Lactulose 20mg Q6H Continue spironolactone and propanolol 10mg TID Meningioma patient declined neurosurgical intervention CT head this admission showed similar findings as previous DNR/DNI Left pleural effusion/atelectasis Respiratory effort improved CXR on 06/09/17 showed Increasing left pleural effusion, progressive compressive atelectasis affecting left lower lobe, left upper lobe Blood culture negative for 48 hours Saturating at 97% room air Chronic Anemia Hgb stable at 9.1 on labs from 06/14 CKD Stable BUN/Cr: 29/1.5 avoid nephrotoxic agents Hx of Syphilis Patient was treated with PO Doxycycline Patient will need recheck as outpatient Prophylaxis Pepcid SCD chemical anticoagulation contraindicated due to anemia Disposition: [facility] once placement is available Management per Dr. Deng
[2017-06-15 18:03] VITALS: BP 101/65; PULSE 89; TEMP 98.5
== END 2017-06-15 21:15 | DRG 557 ==
LOC: C.ER 17:24 → C.9E 21:12 → C.3T 22:20
PROVIDERS: ADMIT Internal Medicine Pulmonary Disease; ATTEND Internal Medicine Pulmonary Disease
PROC: 0W9G3ZZ Drainage of Peritoneal Cavity, Percutaneous Approach (ICD-10-PCS; principal; 2017-06-15)
DX: K74.60 Unspecified cirrhosis of liver (principal); K72.90 Hepatic failure, unspecified without coma; G93.6 Cerebral edema; R18.8 Other ascites; I50.9 Heart failure, unspecified; I13.0 Hypertensive heart and chronic kidney disease with heart failure and stage 1 through stage 4 chronic kidney disease, or unspecified chronic kidney disease; J98.11 Atelectasis; N18.9 Chronic kidney disease, unspecified; D32.9 Benign neoplasm of meninges, unspecified; Z66 Do not resuscitate; D64.9 Anemia, unspecified

== ENCOUNTER 2017-06-18 08:23 | Inpatient (IN) | payer MEDICAID ==
[2017-06-18 09:23] VITALS: BMI 23.6
--- NOTE | 2017-06-18 09:47 | C.PDOC ---
History Of Present Illness 57 yr old male brought in via BLS, [facility] the ER from shelter s/p slip and fall in the bathroom. Patient is confused and believes he might of hit the front of his forehead. Also complains of right hip pain. Denies LOC, chest pain, SOB, abdominal pain, back pain, weakness or numbness. 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) Past Medical History Reviewed: Historical Data, Nursing Documentation, Vital Signs Vital Signs: Last Vital Signs Temp 98.4 F 06/18/17 08:30 Pulse 66 06/18/17 15:45 Resp 18 06/18/17 15:45 BP 100/34 L 06/18/17 15:45 Pulse Ox 99 06/18/17 15:46 - Medical History PMH: Anemia, Anxiety, Arthritis, HTN, Hypercholesterolemia - [facility] Procedures DRAINAGE OF PERITONEAL CAVITY, PERCUTANEOUS APPROACH (06/09/17) TRANSFUSE NONAUT RED BLOOD CELLS IN PERIPH VEIN, OPEN (02/19/17) TRANSFUSE NONAUT RED BLOOD CELLS IN PERIPH VEIN, PERC (05/04/17) ULTRASONOGRAPHY OF ABDOMEN (04/08/17) Family History: States: No Known Family Hx - Social History Hx Alcohol Use: Yes Hx Substance Use: Yes - Immunization History Hx Tetanus Toxoid Vaccination: No Hx Influenza Vaccination: No Hx Pneumococcal Vaccination: No Review Of Systems Except As Marked, All Systems Reviewed And Found Negative. Cardiovascular: Negative for: Chest Pain Respiratory: Negative for: Shortness of Breath Gastrointestinal: Negative for: Abdominal Pain Musculoskeletal: Positive for: Other ((+) right hip pain). Negative for: Back Pain Neurological: Negative for: Weakness, Numbness Physical Exam - Physical Exam Appears: Non-toxic, No Acute Distress, Other ((+) cachectic) Skin: Warm, Dry, No Rash, Other ((+) sallow) Head: Atraumatic, Normacephalic, Other ((+) bitemporal wasting) Eye(s): bilateral: Normal Inspection, PERRL, EOMI Oral Mucosa: Moist Neck: Normal, Normal ROM, Supple Respiratory: Normal Breath Sounds, No Rales, No Rhonchi, No Stridor, No Wheezing Gastrointestinal/Abdominal: Soft, No Tenderness, No Guarding, Hernia ( protruding umbilical hernia), Ascites (large) Back: Normal Inspection, No CVA Tenderness Extremity: No Deformity, Other ((+) mild pain with bilateral hip movement. Thin lower extremities. No edema.) Neurological/Psych: Oriented x3, Normal Speech, Normal Motor ED Course And Treatment - Laboratory Results Result Diagrams: 06/18/17 10:22 06/18/17 10:22 Lab Interpretation: Abnormal (pleural fluid 2015 WBC, 1080 RBC c/w transudate) ECG: Interpreted By Me, Viewed By Me ECG Rhythm: Sinus Rhythm Rate From EC (BPM) O2 Sat by Pulse Oximetry: 99 (RA) Pulse Ox Interpretation: Normal - Other Rad CXR X-Ray: Viewed By Me, Read By Radiologist Interpretation: PROCEDURE: CHEST RADIOGRAPH, 1 VIEW. HISTORY: adm. COMPARISON: 06/09/2017. FINDINGS: LUNGS: The right lung is well inflated and clear. There is worsening near complete opacification of the left hemithorax. PLEURA: No pneumothorax or right pleural fluid seen. CARDIOVASCULAR: Normal. OSSEOUS STRUCTURES: No significant abnormalities. VISUALIZED UPPER ABDOMEN: Normal. OTHER FINDINGS: None. IMPRESSION: Worsening complete opacification of the left hemithorax which could be related to consolidation/collapse or pleural effusion. X-Ray - Bilateral Hips w/ Pelvis X-Ray: Viewed By Me, Read By Radiologist Interpretation: PROCEDURE: Radiographs of the pelvis and bilateral hips. HISTORY: slip fall @ [facility], ? R hip pain. COMPARISON: None. FINDINGS: BONES: There is diffuse bone demineralization. There is no acute displaced fracture or bone destruction. JOINTS: The joint spaces are preserved. SOFT TISSUES: Normal. OTHER FINDINGS: None. IMPRESSION: No acute displaced fracture or dislocation. Please note occult fractures cannot be excluded on plain radiographs. If there is a persistent clinical concern, an MRI of the hip may be performed for further evaluation. - CT Scan/US CT - Head Other Rad Studies (CT/US): Read By Radiologist, Radiology Report Reviewed CT/US Interpretation: IMPRESSION: Little interval change in 2.3 x 2.9 x 2.6 cm left sphenoid wing meningioma with associated extensive vasogenic edema extending to the frontal and anterior parietal subcortical white matter with minimal midline shift from left to right in the inferior frontal region. No hydrocephalus or herniation. CT - Chest Other Rad Studies (CT/US): Read By Radiologist, Radiology Report Reviewed CT/US Interpretation: PROCEDURE: CT Chest without contrast. HISTORY: L pleural effusion. COMPARISON: None. TECHNIQUE: Contiguous axial images were obtained through the chest without intravenous contrast enhancement. Sagittal and coronal reconstructions were performed. . Radiation dose (DLP): mGy-cm. This CT exam was performed using one or more of the following dose reduction techniques: Automated exposure control, adjustment of the mA and/or kV according to patient size, and/or use of iterative reconstruction technique. FINDINGS: LUNGS: The right lung is clear. There is compressive atelectasis of the left lung. MEDIASTINUM: There is mild shift of mediastinal to the right. The heart is normal in size. No large pericardial effusion. PLEURA: There is a large left pleural effusion and compressive atelectasis of the left lung. Coarse right basilar pleural calcifications. BONES: No fracture. No destructive lesion. Within normal limits for the patient's age. UPPER ABDOMEN: Cirrhosis of liver with portal hypertension, splenomegaly, and gastric, esophageal and perisplenic varices. Large abdominal ascites. OTHER FINDINGS: None. IMPRESSION: 1. Large left pleural effusion with compressive atelectasis of the left lung and mild shift of mediastinal to the right. 2. Cirrhosis of liver with portal hypertension, splenomegaly, portosystemic varices and large abdominal ascites. Progress Note: IV fluid bolus and Albumin x 2 given after thoracentesis for transient hypotention (anticipated) and well tolerated Critical Care Time - Critical Care Note Total Time (in mins): 90 Documented critical care: time excludes all time spent performing seperately billable procedures. Medical Decision Making Medical Decision Making: PLAN: * CT - Head, Chest * X-Ray - Bilateral Hips w/ Pelvis * CXR * EKG * Troponin * CBC * CMP * BNP * Urinalysis NOTE: Difficult IV access as per nurses. Placed a right external jugular by me. First attempt successful. No complications. Worstening L pleural effusion, prob transudate, now w/p Throracentesis 2.5 L light straw colored pleural fluid. Start Zosyn empirically for ? empyema vs SBP Hypoglycemia glu 37--> 113 with D50. prob related to poor diet and poor hepatic synthetic function Hepatic Encephalopathy: Ammonia 111 H, Lactulose started in ER, continue Abd ascites: recently tapped, LOW susp of SBP at this time, benign abd- empirica abx started LOW BP and lethargic, high mortality risk. Full Code ICU adm. PROCEDURE: * 1300 - Left Paracentesis * Ultrasound done at bedside shows a large area of fluids on the left lateral chest, T5 mid axillary line. * Area is prepped and dressed in a sterile fashion. * Anesthesia with lidocaine. * 2.5 liters of straw colored fluid is drained. * Post procedure XRay shows good re-expansion of lungs. No pneumothorax. * 1330 - Spoke to content writer business technology teacher, Dr. Mike Acuña regarding patient who agrees with treatment. Recommends an ICU consult and admit to hospitalist. * 1332 - Spoke to Dr. Fortune who agrees to ICU consult. 1430 d/w ICU Dr. Voss @ bedside- pt to ICU, DNR ordered per pt wishes Disposition Doctor Will See Patient In The: Hospital Counseled Patient/Family Regarding: Studies Performed, Diagnosis - Disposition Disposition: HOSPITALIZED Disposition Time: 13:44 Condition: GUARDED - Clinical Impression Clinical Impression: Hepatic encephalopathy, Pleural effusion associated with hepatic disorder, Hypoglycemia, Hyperammonemia, Fall, Head injury, Contusion, buttock - Scribe Statement The provider has reviewed the documentation as recorded by the Dmei[employer] Mcintyre Provider Attestation: All medical record entries made by the Bright were at my direction and personally dictated by me. I have reviewed the chart and agree that the record accurately reflects my personal performance of the history, physical exam, medical decision making, and the department course for this patient. I have also personally directed, reviewed, and agree with the discharge instructions and disposition.
--- NOTE | 2017-06-18 10:05 | RAD ---
PROCEDURE: CHEST RADIOGRAPH, 1 VIEW HISTORY: adm COMPARISON: 06/09/2017. FINDINGS: LUNGS: The right lung is well inflated and clear. There is worsening near complete opacification of the left hemithorax. PLEURA: No pneumothorax or right pleural fluid seen. CARDIOVASCULAR: Normal. OSSEOUS STRUCTURES: No significant abnormalities. VISUALIZED UPPER ABDOMEN: Normal. OTHER FINDINGS: None. IMPRESSION: Worsening complete opacification of the left hemithorax which could be related to consolidation/collapse or pleural effusion.
--- NOTE | 2017-06-18 10:23 | RAD ---
PROCEDURE: Radiographs of the pelvis and bilateral hips HISTORY: slip fall @ [facility], ? R hip pain COMPARISON: None. FINDINGS: BONES: There is diffuse bone demineralization. There is no acute displaced fracture or bone destruction. JOINTS: The joint spaces are preserved. SOFT TISSUES: Normal. OTHER FINDINGS: None. IMPRESSION: No acute displaced fracture or dislocation. Please note occult fractures cannot be excluded on plain radiographs. If there is a persistent clinical concern, an MRI of the hip may be performed for further evaluation.
[2017-06-18 10:27] LABS: BASO # 0.2 K/uL (0.0-0.2); BASO % 0.7 % (0.0-2.0); HEMATOCRIT 35.1 % (35.0-51.0); LYMPH # 1.4 K/uL (1.0-4.3); LYMPH % 5.1 % (20.0-40.0); MEAN CELL VOLUME 105.5 fL (80.0-94.0); MEAN CORPUSCULAR HEMOGLOBIN 35.1 pg (27.0-31.0); MEAN CORPUSCULAR HGB CONC 33.3 g/dL (33.0-37.0); MEAN PLATELET VOLUME 9.2 fL (7.2-11.7); MONO # 1.5 K/uL (0.0-0.8); MONO % 5.4 % (0.0-10.0); NRBC % 0.2 % (0.0-2.0); PLATELET COUNT 137 K/uL (130-400); RED CELL DISTRIBUTION WIDTH 21.6 % (11.5-14.5)
[2017-06-18] MEDS ORDERED: Dextrose 50% VIAL Inj (50 ml) IV ONE (10:27)
[2017-06-18 10:29] LABS: WHITE BLOOD COUNT 28.2 K/uL (4.8-10.8)
[2017-06-18 10:56] LABS: INR 2.1
[2017-06-18 10:58] LABS: ALB/GLOB RATIO 0.4 (1.0-2.1); ALKALINE PHOSPHATASE 91 U/L (38-126); ALT/SGPT 30 U/L (21-72); AST/SGOT 37 U/L (17-59); BILIRUBIN,TOTAL 4.9 mg/dL (0.2-1.3); BLOOD UREA NITROGEN 62 mg/dL (9-20); CALCIUM 7.3 mg/dl (8.6-10.4); CARBON DIOXIDE 12 mmol/L (22-30); CHLORIDE 103 mmol/L (98-107); GFR AFRICAN-AMERICAN 24; GLUCOSE,RANDOM 39 mg/dL (75-110); SODIUM 123 mmol/L (132-148); TOTAL PROTEIN 6.1 g/dL (6.3-8.3)
[2017-06-18] MEDS ORDERED: Dextrose 50% SYRINGE Inj (50 ml) IV STA (11:00)
[2017-06-18 11:19] LABS: NEUTROPHIL 85 % (50-75); TOTAL CELLS COUNTED 100
[2017-06-18 11:22] LABS: ACANTHOCYTES SLIGHT
--- NOTE | 2017-06-18 11:59 | CT ---
PROCEDURE: CT HEAD WITHOUT CONTRAST. HISTORY: fall, ? frontal contusion, encephalopathic COMPARISON: 06/09/2017 TECHNIQUE: Axial computed tomography images were obtained through the head/brain without intravenous contrast. Radiation dose: Total exam DLP = 1014.65 mGy-cm. This CT exam was performed using one or more of the following dose reduction techniques: Automated exposure control, adjustment of the mA and/or kV according to patient size, and/or use of iterative reconstruction technique. FINDINGS: HEMORRHAGE: No intracranial hemorrhage. BRAIN: There is redemonstration of a 2.3 x 2.9 x 2.6 cm left sphenoid wing meningioma with extensive surrounding vasogenic edema extending to the frontal subcortical white matter and sub insular white matter. There is effacement of the left frontal horn and minimal left to right midline shift in the inferior frontal region. VENTRICLES: No hydrocephalus. Age-related volume loss. CALVARIUM: Within normal limits. PARANASAL SINUSES: Predominantly clear. MASTOID AIR CELLS: Predominantly clear. OTHER FINDINGS: None. IMPRESSION: Little interval change in 2.3 x 2.9 x 2.6 cm left sphenoid wing meningioma with associated extensive vasogenic edema extending to the frontal and anterior parietal subcortical white matter with minimal midline shift from left to right in the inferior frontal region. No hydrocephalus or herniation.
--- NOTE | 2017-06-18 12:05 | CT ---
PROCEDURE: CT Chest without contrast HISTORY: L pleural effusion COMPARISON: None. TECHNIQUE: Contiguous axial images were obtained through the chest without intravenous contrast enhancement. Sagittal and coronal reconstructions were performed. Radiation dose (DLP): mGy-cm. This CT exam was performed using one or more of the following dose reduction techniques: Automated exposure control, adjustment of the mA and/or kV according to patient size, and/or use of iterative reconstruction technique. FINDINGS: LUNGS: The right lung is clear. There is compressive atelectasis of the left lung. MEDIASTINUM: There is mild shift of mediastinal to the right. The heart is normal in size. No large pericardial effusion. PLEURA: There is a large left pleural effusion and compressive atelectasis of the left lung. Coarse right basilar pleural calcifications. BONES: No fracture. No destructive lesion. Within normal limits for the patient's age. UPPER ABDOMEN: Cirrhosis of liver with portal hypertension, splenomegaly, and gastric, esophageal and perisplenic varices. Large abdominal ascites. OTHER FINDINGS: None. IMPRESSION: 1. Large left pleural effusion with compressive atelectasis of the left lung and mild shift of mediastinal to the right. 2. Cirrhosis of liver with portal hypertension, splenomegaly, portosystemic varices and large abdominal ascites.
[2017-06-18] MEDS ORDERED: Piperacillin/Tazobact 3.375 gm 100 ML IV STA (12:19)
[2017-06-18 13:16] LABS: BODY FLUID TYPE PLEURAL/THORACENTESI
[2017-06-18 13:58] LABS: BF GROSS APPEARANCE SL CLOUDY (CLEAR); BODY FLUID TOTAL COUNT 100 (0-0)
[2017-06-18] MEDS ORDERED: Albumin Human 25% (12.5 gm/50 ml) IV ONE ×2 (14:00→14:30)
[2017-06-18] MEDS ORDERED: Piperacill/Tazo 3.375gm in Dex 3.375 GM/50 ML BAG IVPB ONE (14:00)
--- NOTE | 2017-06-18 14:12 | RAD ---
HISTORY: s/p L thoracentesis COMPARISON: 06/18/2017 FINDINGS: LUNGS: There is right basilar atelectasis. There is airspace disease in the left lower lobe. PLEURA: Status post left thoracentesis, interval significant decrease in size of left pleural effusion. No pneumothorax. CARDIOVASCULAR: Normal. OSSEOUS STRUCTURES: No significant abnormalities. VISUALIZED UPPER ABDOMEN: Normal. OTHER FINDINGS: None. IMPRESSION: Status post left thoracentesis, residual small pleural effusion and left basilar atelectasis. No pneumothorax.
--- NOTE | 2017-06-18 14:42 | CP.PCM.HP ---
<Oscar Willams - Last Filed: 06/18/17 16:25> History of Present Illness - History of Present Illness History of Present Illness: H&P for Dr. Deng's Service This is a 57 year old male brought in via BLS, presents to the ER from longterm s/p slip and fall in the bathroom. H Patient is confused and believes he might of hit the front of his forehead. He also complains of right hip pain. Patient denies LOC, chest pain, SOB, abdominal pain, back pain, weakness or numbness. He is confused during examination and is unable to provide insight into his medical conditions/history. The patient has multiple admissions, extensive medical history, as detailed below; and was recently discharged from Dr. Deng's service earlier this month. He is an extremely poor historian. The chart sent with him from [facility] details the medications below and POLST form detailing DNR/DNI status. PMD: Cirrhosis, meningioma, chronic anemia, CKD, hx of syphilis s/p tx with doxycycline, hepatitis C PMHx: Denies PSHx: Denies FHx: unknown Medications: aldactone 25mg daily folic acid 1mg daily keppra 500mg BID Lactulose 20g/30mL q6hrs Protonix 40mg daily Procrit 1mL // Propranolol 10mg TID Thiamin 100mg daily Torsemide 10mg daily Allergies: NKDA Social history: [facility] resident, admits to smoking (10 cigarettes for per day) denies ETOH and illicit drug use Present on Admission - Present on Admission Any Indicators Present on Admission: No Review of Systems - Review of Systems Systems not reviewed;Unavailable: Altered Mental Status - Constitutional Constitutional: Weakness Additional comments: s/p fall - EENT Eyes: As Per HPI - Cardiovascular Cardiovascular: As Per HPI. absent: Chest Pain, Dyspnea - Respiratory Respiratory: As Per HPI. absent: Cough, Dyspnea - Gastrointestinal Gastrointestinal: As Per HPI, Abdominal Pain - Musculoskeletal Musculoskeletal: As Per HPI Additional comments: s/p fall with right hip pain; pt may have hit head with fall but is unsure - Neurological Neurological: As Per HPI, Confusion Past Patient History - Infectious Disease Hx of Infectious Diseases: None - Past Medical History & Family History Past Medical History?: Yes - Past Social History Smoking Status: Never Smoked - CARDIAC Hx Hypercholesterolemia: Yes Hx Hypertension: Yes - PULMONARY Hx Respiratory Disorders: No - NEUROLOGICAL Hx Neurological Disorder: No - HEENT Hx HEENT Problems: No - RENAL Hx Chronic Kidney Disease: No - ENDOCRINE/METABOLIC Hx Endocrine Disorders: No - HEMATOLOGICAL/ONCOLOGICAL Hx Anemia: Yes - INTEGUMENTARY Hx Dermatological Problems: No - MUSCULOSKELETAL/RHEUMATOLOGICAL Hx Arthritis: Yes - GASTROINTESTINAL Hx Gastrointestinal Disorders: Yes Hx Liver Failure: Yes (HX:"ALCOHOLOIC CIRRHOSIS OF LIVER") Other/Comment: HX: ASCITIES - GENITOURINARY/GYNECOLOGICAL Hx Genitourinary Disorders: No - PSYCHIATRIC Hx Anxiety: Yes Hx Substance Use: Yes - SURGICAL HISTORY Hx Surgeries: No - ANESTHESIA Hx Anesthesia: No Meds Allergies/Adverse Reactions: Allergies Allergy/AdvReac Type Severity Reaction Status Date / Time No Known Allergies Allergy Verified 06/18/17 09:22 Physical Exam - Constitutional Appears: No Acute Distress, Confused - Head Exam Head Exam: ATRAUMATIC - Eye Exam Eye Exam: EOMI - ENT Exam ENT Exam: Mucous Membranes Moist - Respiratory Exam Respiratory Exam: NORMAL BREATHING PATTERN Additional comments: coarse breath sound diffusely - Cardiovascular Exam Cardiovascular Exam: REGULAR RHYTHM, +S1 - GI/Abdominal Exam GI & Abdominal Exam: Distended. absent: Guarding Additional comments: distended abdomen, mildly tender to palpation w/o any guarding - Extremities Exam Extremities exam: Negative for: pedal edema, tenderness - Neurological Exam Neurological exam: Alert - Skin Skin Exam: Dry, Warm Results - Vital Signs Recent Vital Signs: Last Vital Signs Temp 98.4 F 06/18/17 08:30 Pulse 70 06/18/17 14:05 Resp 20 06/18/17 14:05 BP 111/38 L 06/18/17 14:05 Pulse Ox 100 06/18/17 14:05 - Labs Result Diagrams: 06/18/17 10:22 06/18/17 10:22 Labs: Laboratory Results - last 24 hr 06/18/17 06/18/17 06/18/17 10:14 10:17 10:22 WBC 28.2 H D RBC 3.33 L Hgb 11.7 L D Hct 35.1 MCV 105.5 H MCH 35.1 H MCHC 33.3 RDW 21.6 H Plt Count 137 MPV 9.2 Neut % (Auto) 88.8 H Lymph % (Auto) 5.1 L [place] % (Auto) 5.4 Eos % (Auto) 0.0 Baso % (Auto) 0.7 Neut # 25.1 H Lymph # 1.4 [place] # 1.5 H Eos # 0.0 Baso # 0.2 Neutrophils % (Manual) 85 H Band Neutrophils % 1 Lymphocytes % (Manual) 9 L Monocytes % (Manual) 5 Platelet Estimate Normal Polychromasia Slight Poikilocytosis (manual Slight Anisocytosis (manual) Moderate Macrocytosis (manual) Slight [place] Cells Slight Acanthocytes (Spur) Slight PT INR APTT Sodium Potassium Chloride Carbon Dioxide Anion Gap BUN Creatinine Est GFR ( Amer) Est GFR (Non-Af Amer) POC Glucose (mg/dL) 39 L 37 L* Random Glucose Calcium Total Bilirubin AST ALT Alkaline Phosphatase Ammonia Troponin I NT-Pro-B Natriuret Pep Total Protein Albumin Globulin Albumin/Globulin Ratio Fluid Source Fluid Appearance Fluid WBC Fluid RBC Fluid Tot Cell Count Fluid Neutrophils Fluid Lymphocytes Fld Monocyte/Macrophag Fluid Comment Blood Type Antibody Screen Antibody Identification MERE, Poly Interpret 06/18/17 06/18/17 06/18/17 10:22 10:22 10:22 WBC RBC Hgb Hct MCV MCH MCHC RDW Plt Count MPV Neut % (Auto) Lymph % (Auto) [place] % (Auto) Eos % (Auto) Baso % (Auto) Neut # Lymph # [place] # Eos # Baso # Neutrophils % (Manual) Band Neutrophils % Lymphocytes % (Manual) Monocytes % (Manual) Platelet Estimate Polychromasia Poikilocytosis (manual Anisocytosis (manual) Macrocytosis (manual) Ze Cells Acanthocytes (Spur) PT INR APTT Sodium 123 L Potassium 6.0 H Chloride 103 Carbon Dioxide 12 L Anion Gap 14 BUN 62 H Creatinine 3.3 H Est GFR ( Amer) 24 Est GFR (Non-Af Amer) 20 POC Glucose (mg/dL) Random Glucose 39 L* D Calcium 7.3 L Total Bilirubin 4.9 H AST 37 ALT 30 Alkaline Phosphatase 91 Ammonia 111 H D Troponin I < 0.0120 NT-Pro-B Natriuret Pep 2390 H Total Protein 6.1 L Albumin 1.8 L Globulin 4.3 H Albumin/Globulin Ratio 0.4 L Fluid Source Fluid Appearance Fluid WBC Fluid RBC Fluid Tot Cell Count Fluid Neutrophils Fluid Lymphocytes Fld Monocyte/Macrophag Fluid Comment Blood Type O POSITIVE Antibody Screen Positive Antibody Identification Anti Jka MERE, Poly Interpret Negative 06/18/17 06/18/17 06/18/17 10:25 11:07 11:13 WBC RBC Hgb Hct MCV MCH MCHC RDW Plt Count MPV Neut % (Auto) Lymph % (Auto) [place] % (Auto) Eos % (Auto) Baso % (Auto) Neut # Lymph # [place] # Eos # Baso # Neutrophils % (Manual) Band Neutrophils % Lymphocytes % (Manual) Monocytes % (Manual) Platelet Estimate Polychromasia Poikilocytosis (manual Anisocytosis (manual) Macrocytosis (manual) Ze Cells Acanthocytes (Spur) PT 24.2 H INR 2.1 APTT 56 H Sodium Potassium Chloride Carbon Dioxide Anion Gap BUN Creatinine Est GFR ( Amer) Est GFR (Non-Af Amer) POC Glucose (mg/dL) 478 H* 113 H Random Glucose Calcium Total Bilirubin AST ALT Alkaline Phosphatase Ammonia Troponin I NT-Pro-B Natriuret Pep Total Protein Albumin Globulin Albumin/Globulin Ratio Fluid Source Fluid Appearance Fluid WBC Fluid RBC Fluid Tot Cell Count Fluid Neutrophils Fluid Lymphocytes Fld Monocyte/Macrophag Fluid Comment Blood Type Antibody Screen Antibody Identification MERE, Poly Interpret 06/18/17 13:16 WBC RBC Hgb Hct MCV MCH MCHC RDW Plt Count MPV Neut % (Auto) Lymph % (Auto) [place] % (Auto) Eos % (Auto) Baso % (Auto) Neut # Lymph # [place] # Eos # Baso # Neutrophils % (Manual) Band Neutrophils % Lymphocytes % (Manual) Monocytes % (Manual) Platelet Estimate Polychromasia Poikilocytosis (manual Anisocytosis (manual) Macrocytosis (manual) [place] Cells Acanthocytes (Spur) PT INR APTT Sodium Potassium Chloride Carbon Dioxide Anion Gap BUN Creatinine Est GFR ( Amer) Est GFR (Non-Af Amer) POC Glucose (mg/dL) Random Glucose Calcium Total Bilirubin AST ALT Alkaline Phosphatase Ammonia Troponin I NT-Pro-B Natriuret Pep Total Protein Albumin Globulin Albumin/Globulin Ratio Fluid Source Pleural/thoracentesi Fluid Appearance Sl cloudy Fluid WBC 2052.0 H Fluid RBC 1080.0 H Fluid Tot Cell Count 100 H Fluid Neutrophils 81.0 H Fluid Lymphocytes 16.0 H Fld Monocyte/Macrophag 3 H Fluid Comment Blood Type Antibody Screen Antibody Identification MERE, Poly Interpret Assessment & Plan - Assessment and Plan (Free Text) Plan: 1. Status post fall - head CT done in ED- no acute changes - hip/pelvis xray- no acute fractures/dislocations; MRI to determine occult fracturs 2. Leukocytosis secondary to possible PNA; consider sepsis; consider BP - WBC: 28.2 - EKG- normal - ABG Shock Panel ordered - Lactate: follow up - Procal: follow up - ABG: follow up - Urinanalysis-follow up - Urine Cx- follow up - CXR:Worsening complete opacification of L hemithorax; consolidation vs pleural effusion - Left-sided vianca-hydrothorax; L thoacocentesis done in ED: WBC 2052 [id number] Neutrophils 81 Lymphocytes 16 Monocytes/Macrophages 3 Total cell count 100 - Will need paracentesis in the morning - Zosyn- 2.25g q6hrs (renally dosed) - Critical care consult- Dr. Fortune - ID consult- Dr. Geronimo 3. Hepatic encephalopathy - Chronic liver cirrhosis pt with previous admission for AMS. As per Dr. Deng , pt is non-compliant with lactulose as well as other medications - Ammonia: 111 - Albumin 1.8 - INR2.1 - GI consult: Dr. Marcum - Lactulose 20mg q6hrs 4. MICHELINE on CKD - Baseline creatinine on previous admission was 1.5. Creatinine is 3.3 today - pt was receiving NSAIDs at [facility] - hold diuretics - Nephrology Consult- Dr. Mao- recs appreciated Albumin 12g IV two times 5. Hypoglycemia - 39 in the ED - repeat finger stick 73 - finger sticks achs - hypoglycemia protocol 6. Hyperkalemia - Potassium 6.0 on admission - follow up BMP 7. HTN - Propranolol 10mg PO TID 8. Meningioma - Stable from previous hospitalizations - Head CT 06/18: left sphenoid wing meningioma 2.3cm x 2.9cm x 2.6cm with extensive edema extending to multiple areas. Minimal midline shift. 9. Chronic Anemia - hgb 11.7 on admission 10. Hx of syphilis - completed treatment with doxycycline 11. Chronic hep C infection 12. Prophylaxis - Protonix 40 PO daily - Renal diet - Anticoagulation held; INR 2.1 - Renal diet This patient will be admitted to ICU. He was seen by Dr. Fortune. Case was discussed with Dr. Deng Case was discussed with Dr. Samayoa <Jun Samayoa - Last Filed: 06/18/17 17:03> Results - Vital Signs Recent Vital Signs: Last Vital Signs Temp 95.8 F L 06/18/17 16:00 Pulse 65 06/18/17 16:00 Resp 20 06/18/17 16:00 BP 92/40 L 06/18/17 16:00 Pulse Ox 97 06/18/17 16:00 - Labs Result Diagrams: 06/18/17 10:22 06/18/17 10:22 Labs: Laboratory Results - last 24 hr 06/18/17 06/18/17 06/18/17 10:14 10:17 10:22 WBC 28.2 H D RBC 3.33 L Hgb 11.7 L D Hct 35.1 MCV 105.5 H MCH 35.1 H MCHC 33.3 RDW 21.6 H Plt Count 137 MPV 9.2 Neut % (Auto) 88.8 H Lymph % (Auto) 5.1 L [place] % (Auto) 5.4 Eos % (Auto) 0.0 Baso % (Auto) 0.7 Neut # 25.1 H Lymph # 1.4 [place] # 1.5 H Eos # 0.0 Baso # 0.2 Neutrophils % (Manual) 85 H Band Neutrophils % 1 Lymphocytes % (Manual) 9 L Monocytes % (Manual) 5 Platelet Estimate Normal Polychromasia Slight Poikilocytosis (manual Slight Anisocytosis (manual) Moderate Macrocytosis (manual) Slight [place] Cells Slight Acanthocytes (Spur) Slight PT INR APTT Sodium Potassium Chloride Carbon Dioxide Anion Gap BUN Creatinine Est GFR ( Amer) Est GFR (Non-Af Amer) POC Glucose (mg/dL) 39 L 37 L* Random Glucose Calcium Total Bilirubin AST ALT Alkaline Phosphatase Ammonia Lactate Dehydrogenase Troponin I NT-Pro-B Natriuret Pep Total Protein Albumin Globulin Albumin/Globulin Ratio Fluid Source Fluid Appearance Fluid WBC Fluid RBC Fluid Tot Cell Count Fluid Neutrophils Fluid Lymphocytes Fld Monocyte/Macrophag Fluid Comment Blood Type Antibody Screen Antibody Identification MERE, Poly Interpret 06/18/17 06/18/17 06/18/17 10:22 10:22 10:22 WBC RBC Hgb Hct MCV MCH MCHC RDW Plt Count MPV Neut % (Auto) Lymph % (Auto) [place] % (Auto) Eos % (Auto) Baso % (Auto) Neut # Lymph # [place] # Eos # Baso # Neutrophils % (Manual) Band Neutrophils % Lymphocytes % (Manual) Monocytes % (Manual) Platelet Estimate Polychromasia Poikilocytosis (manual Anisocytosis (manual) Macrocytosis (manual) [place] Cells Acanthocytes (Spur) PT INR APTT Sodium 123 L Potassium 6.0 H Chloride 103 Carbon Dioxide 12 L Anion Gap 14 BUN 62 H Creatinine 3.3 H Est GFR ( Amer) 24 Est GFR (Non-Af Amer) 20 POC Glucose (mg/dL) Random Glucose 39 L* D Calcium 7.3 L Total Bilirubin 4.9 H AST 37 ALT 30 Alkaline Phosphatase 91 Ammonia 111 H D Lactate Dehydrogenase 1016 H Troponin I < 0.0120 NT-Pro-B Natriuret Pep 2390 H Total Protein 6.1 L Albumin 1.8 L Globulin 4.3 H Albumin/Globulin Ratio 0.4 L Fluid Source Fluid Appearance Fluid WBC Fluid RBC Fluid Tot Cell Count Fluid Neutrophils Fluid Lymphocytes Fld Monocyte/Macrophag Fluid Comment Blood Type O POSITIVE Antibody Screen Positive Antibody Identification Anti Jka MERE, Poly Interpret Negative 06/18/17 06/18/17 06/18/17 10:25 11:07 11:13 WBC RBC Hgb Hct MCV MCH MCHC RDW Plt Count MPV Neut % (Auto) Lymph % (Auto) [place] % (Auto) Eos % (Auto) Baso % (Auto) Neut # Lymph # [place] # Eos # Baso # Neutrophils % (Manual) Band Neutrophils % Lymphocytes % (Manual) Monocytes % (Manual) Platelet Estimate Polychromasia Poikilocytosis (manual Anisocytosis (manual) Macrocytosis (manual) [place] Cells Acanthocytes (Spur) PT 24.2 H INR 2.1 APTT 56 H Sodium Potassium Chloride Carbon Dioxide Anion Gap BUN Creatinine Est GFR ( Amer) Est GFR (Non-Af Amer) POC Glucose (mg/dL) 478 H* 113 H Random Glucose Calcium Total Bilirubin AST ALT Alkaline Phosphatase Ammonia Lactate Dehydrogenase Troponin I NT-Pro-B Natriuret Pep Total Protein Albumin Globulin Albumin/Globulin Ratio Fluid Source Fluid Appearance Fluid WBC Fluid RBC Fluid Tot Cell Count Fluid Neutrophils Fluid Lymphocytes Fld Monocyte/Macrophag Fluid Comment Blood Type Antibody Screen Antibody Identification MERE, Poly Interpret 06/18/17 06/18/17 13:16 14:36 WBC RBC Hgb Hct MCV MCH MCHC RDW Plt Count MPV Neut % (Auto) Lymph % (Auto) [place] % (Auto) Eos % (Auto) Baso % (Auto) Neut # Lymph # [place] # Eos # Baso # Neutrophils % (Manual) Band Neutrophils % Lymphocytes % (Manual) Monocytes % (Manual) Platelet Estimate Polychromasia Poikilocytosis (manual Anisocytosis (manual) Macrocytosis (manual) [place] Cells Acanthocytes (Spur) PT INR APTT Sodium Potassium Chloride Carbon Dioxide Anion Gap BUN Creatinine Est GFR ( Amer) Est GFR (Non-Af Amer) POC Glucose (mg/dL) 73 Random Glucose Calcium Total Bilirubin AST ALT Alkaline Phosphatase Ammonia Lactate Dehydrogenase Troponin I NT-Pro-B Natriuret Pep Total Protein Albumin Globulin Albumin/Globulin Ratio Fluid Source Pleural/thoracentesi Fluid Appearance Sl cloudy Fluid WBC 2052.0 H Fluid RBC 1080.0 H Fluid Tot Cell Count 100 H Fluid Neutrophils 81.0 H Fluid Lymphocytes 16.0 H Fld Monocyte/Macrophag 3 H Fluid Comment Blood Type Antibody Screen Antibody Identification MERE, Poly Interpret Attending/Attestation - Attestation I have personally seen and examined this patient.: Yes I have fully participated in the care of the patient.: Yes I have reviewed all pertinent clinical information: Yes Notes (Text): Patient was seen and examined.Not in distress ,feels better after THoracentesis. 1.S/P Fall 2.Hepatic encephalopathy lactulose,hold diuretics because of acute on CRF GI consult from DR Marcum 3.Leukocytosis/Possible infection follow lactate,hold diuretics started on renal dose zosyn,follow cultures ID consult /DR Geronimo 4.Liver cirrhosis and ascites Needs paracentesis Albumin infusion 5.Acute on chronic renal failure Hold dieuretics Albumin infusion,follow creatinine d/w DR Mao. 6.Hypoglycemia Monitor sugar 7.Meningioma Stable 8.Advance directives/POST in the chart DNR and DNI 9.DVT prophy-Hypercoagulation status GI prophylasix is on protonix Case d/w DR Deng plan discussed with the resident and I agree with the documentation of the assessment and the plan
[2017-06-18] MEDS ORDERED: Piperacill/Tazo 2.25gm in Dex 2.25 GM/50 ML BAG IVPB SCH (15:00)
[2017-06-18] MEDS ORDERED: Pantoprazole 40 mg EC Tab PO SCH (15:15)
[2017-06-18] MEDS ORDERED: Pantoprazole 40 mg EC Tab PO ONE ×2 (15:30→15:43)
--- NOTE | 2017-06-18 16:04 | CP.PCM.CON ---
History of Present Illness - History of Present Illness History of Present Illness: 56-year-old male with a history of end-stage liver disease, history of meningioma, history of anemia admitted to the hospital with not feeling well. Patient came from skilled nursing after a slip and fall. Continues to be Shortness of breath. In the emergency room patient was found to have severe left-sided vianca- hydrothorax, underwent a thoracentesis. 2 L fluid was removed. Oxygen saturation improving. The patient become more shortness of breath. He is also having abdominal distention. Not eating well. Body pain noted Past medical history: End-stage liver disease, renal insufficiency, anemia, history of recurrent paracentesis Surgical history none Medications reviewed Allergies no known drug allergy In the past patient had a history of alcohol Review of system: Feeling extremely weak, tired, also complaining of body pain. Abdominal pain noted. Swelling noted. Distention noted. Shortness of breath. Cough noted. Vital signs reviewed No neck vein distention noted Decreased air entry in the lung christine on the left side CVS regular heart sound, no murmur noted Abdominal distention noted, fluid thrill present. Bilateral leg edema noted Patient's a marked drowsy, arousable. Patient's labs included Elevated INR noted. Elevated liver enzymes. Repeat chest x-ray improvement in the lungs fluid is noted. Assessment and recommendation: 57-year-old male admitted with acute decompensated liver disease. Possible subacute bacterial peritonitis. Acute renal insufficiency. Severe left-sided hemithorax with hydrothorax, status post a thoracentesis. Patient will need a paracentesis again in the morning. Fluid management. Renal evaluation. Prognosis is very poor Past Patient History - Infectious Disease Hx of Infectious Diseases: None - Past Medical History & Family History Past Medical History?: Yes - Past Social History Smoking Status: Never Smoked - CARDIAC Hx Hypercholesterolemia: Yes Hx Hypertension: Yes - PULMONARY Hx Respiratory Disorders: No - NEUROLOGICAL Hx Neurological Disorder: No - HEENT Hx HEENT Problems: No - RENAL Hx Chronic Kidney Disease: No - ENDOCRINE/METABOLIC Hx Endocrine Disorders: No - HEMATOLOGICAL/ONCOLOGICAL Hx Anemia: Yes - INTEGUMENTARY Hx Dermatological Problems: No - MUSCULOSKELETAL/RHEUMATOLOGICAL Hx Arthritis: Yes - GASTROINTESTINAL Hx Gastrointestinal Disorders: Yes Hx Liver Failure: Yes (HX:"ALCOHOLOIC CIRRHOSIS OF LIVER") Other/Comment: HX: ASCITIES - GENITOURINARY/GYNECOLOGICAL Hx Genitourinary Disorders: No - PSYCHIATRIC Hx Anxiety: Yes Hx Substance Use: Yes - SURGICAL HISTORY Hx Surgeries: No - ANESTHESIA Hx Anesthesia: No Meds Allergies/Adverse Reactions: Allergies Allergy/AdvReac Type Severity Reaction Status Date / Time No Known Allergies Allergy Verified 06/18/17 09:22 - Medications Medications: Current Medications Piperacillin Sod/Tazobactam Sod (Zosyn 2.25 Gm Iv Premix) 2.25 gm in 50 mls @ 100 mls/hr IVPB Q6H KARL Lactulose (Enulose) 20 gm PO Q6H KARL Last Admin: 06/18/17 15:07 Dose: 20 gm Levetiracetam (Keppra) 500 mg PO BID KARL Nicotine (Nicoderm Cq) 1 patch TD DAILY KARL Propranolol HCl (Inderal) 10 mg PO TID KARL Results - Vital Signs Recent Vital Signs: Last Vital Signs Temp 98.4 F 06/18/17 08:30 Pulse 66 06/18/17 15:45 Resp 18 06/18/17 15:45 BP 100/34 L 06/18/17 15:45 Pulse Ox 99 06/18/17 15:47 - Labs Result Diagrams: 06/18/17 10:22 06/18/17 10:22 Labs: Laboratory Results - last 24 hr 06/18/17 06/18/17 06/18/17 10:14 10:17 10:22 WBC 28.2 H D RBC 3.33 L Hgb 11.7 L D Hct 35.1 MCV 105.5 H MCH 35.1 H MCHC 33.3 RDW 21.6 H Plt Count 137 MPV 9.2 Neut % (Auto) 88.8 H Lymph % (Auto) 5.1 L [place] % (Auto) 5.4 Eos % (Auto) 0.0 Baso % (Auto) 0.7 Neut # 25.1 H Lymph # 1.4 [place] # 1.5 H Eos # 0.0 Baso # 0.2 Neutrophils % (Manual) 85 H Band Neutrophils % 1 Lymphocytes % (Manual) 9 L Monocytes % (Manual) 5 Platelet Estimate Normal Polychromasia Slight Poikilocytosis (manual Slight Anisocytosis (manual) Moderate Macrocytosis (manual) Slight [place] Cells Slight Acanthocytes (Spur) Slight PT INR APTT Sodium Potassium Chloride Carbon Dioxide Anion Gap BUN Creatinine Est GFR ( Amer) Est GFR (Non-Af Amer) POC Glucose (mg/dL) 39 L 37 L* Random Glucose Calcium Total Bilirubin AST ALT Alkaline Phosphatase Ammonia Lactate Dehydrogenase Troponin I NT-Pro-B Natriuret Pep Total Protein Albumin Globulin Albumin/Globulin Ratio Fluid Source Fluid Appearance Fluid WBC Fluid RBC Fluid Tot Cell Count Fluid Neutrophils Fluid Lymphocytes Fld Monocyte/Macrophag Fluid Comment Blood Type Antibody Screen Antibody Identification MERE, Poly Interpret 06/18/17 06/18/17 06/18/17 10:22 10:22 10:22 WBC RBC Hgb Hct MCV MCH MCHC RDW Plt Count MPV Neut % (Auto) Lymph % (Auto) [place] % (Auto) Eos % (Auto) Baso % (Auto) Neut # Lymph # [place] # Eos # Baso # Neutrophils % (Manual) Band Neutrophils % Lymphocytes % (Manual) Monocytes % (Manual) Platelet Estimate Polychromasia Poikilocytosis (manual Anisocytosis (manual) Macrocytosis (manual) Ze Cells Acanthocytes (Spur) PT INR APTT Sodium 123 L Potassium 6.0 H Chloride 103 Carbon Dioxide 12 L Anion Gap 14 BUN 62 H Creatinine 3.3 H Est GFR ( Amer) 24 Est GFR (Non-Af Amer) 20 POC Glucose (mg/dL) Random Glucose 39 L* D Calcium 7.3 L Total Bilirubin 4.9 H AST 37 ALT 30 Alkaline Phosphatase 91 Ammonia 111 H D Lactate Dehydrogenase 1016 H Troponin I < 0.0120 NT-Pro-B Natriuret Pep 2390 H Total Protein 6.1 L Albumin 1.8 L Globulin 4.3 H Albumin/Globulin Ratio 0.4 L Fluid Source Fluid Appearance Fluid WBC Fluid RBC Fluid Tot Cell Count Fluid Neutrophils Fluid Lymphocytes Fld Monocyte/Macrophag Fluid Comment Blood Type O POSITIVE Antibody Screen Positive Antibody Identification Anti Jka MERE, Poly Interpret Negative 06/18/17 06/18/17 06/18/17 10:25 11:07 11:13 WBC RBC Hgb Hct MCV MCH MCHC RDW Plt Count MPV Neut % (Auto) Lymph % (Auto) [place] % (Auto) Eos % (Auto) Baso % (Auto) Neut # Lymph # [place] # Eos # Baso # Neutrophils % (Manual) Band Neutrophils % Lymphocytes % (Manual) Monocytes % (Manual) Platelet Estimate Polychromasia Poikilocytosis (manual Anisocytosis (manual) Macrocytosis (manual) Ze Cells Acanthocytes (Spur) PT 24.2 H INR 2.1 APTT 56 H Sodium Potassium Chloride Carbon Dioxide Anion Gap BUN Creatinine Est GFR ( Amer) Est GFR (Non-Af Amer) POC Glucose (mg/dL) 478 H* 113 H Random Glucose Calcium Total Bilirubin AST ALT Alkaline Phosphatase Ammonia Lactate Dehydrogenase Troponin I NT-Pro-B Natriuret Pep Total Protein Albumin Globulin Albumin/Globulin Ratio Fluid Source Fluid Appearance Fluid WBC Fluid RBC Fluid Tot Cell Count Fluid Neutrophils Fluid Lymphocytes Fld Monocyte/Macrophag Fluid Comment Blood Type Antibody Screen Antibody Identification MERE, Poly Interpret 06/18/17 06/18/17 13:16 14:36 WBC RBC Hgb Hct MCV MCH MCHC RDW Plt Count MPV Neut % (Auto) Lymph % (Auto) [place] % (Auto) Eos % (Auto) Baso % (Auto) Neut # Lymph # [place] # Eos # Baso # Neutrophils % (Manual) Band Neutrophils % Lymphocytes % (Manual) Monocytes % (Manual) Platelet Estimate Polychromasia Poikilocytosis (manual Anisocytosis (manual) Macrocytosis (manual) Ze Cells Acanthocytes (Spur) PT INR APTT Sodium Potassium Chloride Carbon Dioxide Anion Gap BUN Creatinine Est GFR ( Amer) Est GFR (Non-Af Amer) POC Glucose (mg/dL) 73 Random Glucose Calcium Total Bilirubin AST ALT Alkaline Phosphatase Ammonia Lactate Dehydrogenase Troponin I NT-Pro-B Natriuret Pep Total Protein Albumin Globulin Albumin/Globulin Ratio Fluid Source Pleural/thoracentesi Fluid Appearance Sl cloudy Fluid WBC 2052.0 H Fluid RBC 1080.0 H Fluid Tot Cell Count 100 H Fluid Neutrophils 81.0 H Fluid Lymphocytes 16.0 H Fld Monocyte/Macrophag 3 H Fluid Comment Blood Type Antibody Screen Antibody Identification MERE, Poly Interpret
[2017-06-18] MEDS ORDERED: Dextrose 50% SYRINGE Inj (50 ml) IV ONE (17:00)
[2017-06-18] MEDS: Sod Polystyrene Sulf 15 gm/60 ml Susp PO ONE ×2 (17:23→17:25)
[2017-06-18] MEDS ORDERED: Sod Polystyrene Sulf 15 gm/60 ml Susp PO ONE (17:24)
[2017-06-18] MEDS: Albumin Human 25% (12.5 gm/50 ml) IV SCH ×2 (17:37→21:02)
[2017-06-18] MEDS: Sodium Bicarbonate 8.4% 150 MEQ in Dextrose 5% In Water 850 ML IV SCH (18:48)
[2017-06-18 20:12] LABS: CREATININE, RANDOM URINE 289.8 mg/dL
[2017-06-18 20:27] LABS: ABG ALLEN TEST POS; DRAW SITE RBA
[2017-06-18] MEDS: Piperacill/Tazo 2.25gm in Dex 2.25 GM/50 ML BAG IVPB SCH (21:01)
[2017-06-19] MEDS: Albumin Human 25% (12.5 gm/50 ml) IV SCH ×5 (00:48→22:47)
[2017-06-19] MEDS: Piperacill/Tazo 2.25gm in Dex 2.25 GM/50 ML BAG IVPB SCH ×4 (01:28→20:50)
[2017-06-19 05:58] LABS: ARTERIAL BLOOD HGB O2 SAT 94.2 % (95.0-98.0); CARBOXYHEMOGLOBIN 3.2 % (0.5-1.5); DRAW SITE R BRA; HHB 1.7 % (0.0-5.0); METHEMOGLOBIN 0.9 % (0.0-3.0)
[2017-06-19 06:35] LABS: BASO # 0.1 K/uL (0.0-0.2); BASO % 0.5 % (0.0-2.0); HEMATOCRIT 27.1 % (35.0-51.0); LYMPH # 1.7 K/uL (1.0-4.3); LYMPH % 8.9 % (20.0-40.0); MEAN CELL VOLUME 104.2 fL (80.0-94.0); MEAN CORPUSCULAR HEMOGLOBIN 34.8 pg (27.0-31.0); MEAN CORPUSCULAR HGB CONC 33.4 g/dL (33.0-37.0); MEAN PLATELET VOLUME 9.5 fL (7.2-11.7); MONO # 1.4 K/uL (0.0-0.8); PLATELET COUNT 90 K/uL (130-400); WHITE BLOOD COUNT 19.3 K/uL (4.8-10.8)
[2017-06-19 06:43] LABS: INR 2.2
[2017-06-19 06:50] LABS: ALB/GLOB RATIO 0.6 (1.0-2.1); BILIRUBIN,TOTAL 4.5 mg/dL (0.2-1.3); CALCIUM 7.5 mg/dl (8.6-10.4); PHOSPHOROUS 6.6 mg/dL (2.5-4.5); POTASSIUM 5.2 mmol/L (3.6-5.2); TOTAL PROTEIN 5.6 g/dL (6.3-8.3)
[2017-06-19] MEDS ORDERED: Phytonadione 10 mg/ml Inj (Adult) SC ONE (08:30)
[2017-06-19] MEDS: Pantoprazole 40 mg EC Tab PO SCH (09:27)
[2017-06-19 09:38] LABS: NEUTROPHIL 86 % (50-75); TOTAL CELLS COUNTED 100
--- NOTE | 2017-06-19 12:21 | CP.PCM.PN ---
Subjective - Date & Time of Evaluation Date of Evaluation: 06/19/17 Time of Evaluation: 12:00 - Subjective Subjective: Hospitalist Covering for Dr. Magy Deng Patient was seen and examined at 12:00 PM 06/19/17 ICU Bed #15 57 year old male who was admitted to ICU on 06/18/17 after he fell at his [facility]. His history is as indicated below in the Assessment and Plans. This is his [facility]th admission to [facility] since March 2017. Upon FULL ROS patient states YES to everything. I do not know how reliable his answers are as he appears to be confused. He could not describe to me why he was here or the nature/circumstance surrounding his fall. Exam: HEENT: NCA, EOMI, PERRLA, NO cervical lymphadenopathy, NO thyromegaly, Mucous Membranes are dry Cardio: NS1 and NS2, NO M/R/G Resp: Decreased breath sounds diffusely GI: BSx4 are decresed, Distention is present, Tender to palpation diffusely without rebound/guarding, Liver and Spleen could not be palpated. Ext: Pulses are strong and eqal, Capillary Refill is 2 seconds, NO edema Neuro: CNII through XII are grossly intact Assessment & Plan - Assessment and Plan (Free Text) Plan: 1. Status post fall - CT Head no acute changes - Hip/pelvis xray- no acute fractures/dislocations; MRI to determine occult fracturs - F/U PT/OT evaluation 2. Leukocytosis Secondary to possible PNA; Consider sepsis; Consider Bacterial Peritonitis - WBC elevated - EKG- normal - Lactate elevated 06/18/17 and Stat ordered at the time of my exam - F/U Blood Culture - F/U Urine Culture - CXR 06/18/17:Worsening complete opacification of L hemithorax, consolidation vs pleural effusion, F/U repeat Chest X Ray 06/19/17 - CT Chest 06/18/17: large left pleural effusion with compressive atelectasis - Left-sided vianca-hydrothorax; L thoacocentesis done in ED: WBC 2052 [id number] Neutrophils 81 Lymphocytes 16 Monocytes/Macrophages 3 Total cell count 100 - Will need Paracentesis and IR has been consulted 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 Fortune - ID consult- Dr. Geronimo 3. Hepatic Encephalopathy - Chronic liver cirrhosis patient with previous admission for AMS. As per Dr. Deng, pt is non-compliant with lactulose as well as other medications - Ammonia: 111 - Albumin 1.8 - INR2.1 - GI consult: Dr. Marcum - Lactulose 20mg q6hrs 4. MICHELINE on CKD Stage III - Baseline creatinine on previous admission was 1.5. Creatinine is 3.3 today - Patient was receiving NSAIDs at [facility] - Hold diuretic Aldactone considering the worsening Kidney Function and the low blood pressure - Nephrology Consult- Dr. Mao- recs appreciated Albumin 12g IV two times 5. Hypoglycemia - Resolved 6. Hyperkalemia - Could have been secondary to the Aldactone -Resolved 7. HTN - Propranolol and Aldactone are being held secondary to the low blood pressure 8. Meningioma - Stable from previous hospitalizations - Head CT 06/18: left sphenoid wing meningioma 2.3cm x 2.9cm x 2.6cm with extensive edema extending to multiple areas. Minimal midline shift. - Keppra 500 mg PO 2x/day 9. 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 Hx of syphilis - Completed treatment with doxycycline 11. 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 Marcum has ordered Neomycin 500 mg PO Q6H - F/U workup ordered by Dr. Marcum: [id number], CEA, Alpha Feto Protein - F/U IR evaluation for Paracentesis 12. Nicotine Addiction - Nicotine Patch 14 mg TD 1x/day 13. Prophylaxis - Protonix 40 PO daily - Renal diet - Anticoagulation held: INR 2.1 - Renal diet Follow up for today: Chest X Ray to rule out Pneumonia and to see if Left Pleural Effusion has improved If pneumonia is present on repeat Chest X Ray, then will add renally dosed Vancomycin (patient already on Zosyn) F/U workup for DIC: D-dimer, Fibrinogen (Platelets are low, INR/PT/PTT are elevated) F/U IR Dr. Roma Pham for Paracentesis F/U Lactate level Warren Koroma D.O. Objective - Vital Signs/Intake and Output Vital Signs (last 24 hours): Temp Pulse Resp BP Pulse Ox 98.1 F 74 17 96/35 L 100 06/19/17 08:00 06/19/17 11:09 06/19/17 11:09 06/19/17 11:09 06/19/17 11:09 Intake and Output: 06/19/17 06/19/17 06:59 18:59 Intake Total 1090 545 Output Total 285 Balance 805 545 - Medications Medications: Current Medications Piperacillin Sod/Tazobactam Sod (Zosyn 2.25 Gm Iv Premix) 2.25 gm in 50 mls @ 100 mls/hr IVPB Q6H [facility] Last Admin: 06/19/17 08:13 Dose: 100 mls/hr Sodium Bicarbonate 150 meq/ (Dextrose) 1,000 mls @ 45 mls/hr IV .[id number] [facility] Last Admin: 06/18/17 18:48 Dose: 45 mls/hr Lactulose (Enulose) 20 gm PO Q6H [facility] Last Admin: 06/19/17 09:27 Dose: 20 gm Levetiracetam (Keppra) 500 mg PO BID [facility] Last Admin: 06/19/17 09:27 Dose: 500 mg Neomycin Sulfate (Neomycin Tab) 500 mg PO Q6 [facility] Nicotine (Nicoderm Cq) 1 patch TD DAILY [facility] Last Admin: 06/19/17 09:28 Dose: 1 patch Pantoprazole Sodium (Protonix Ec Tab) 40 mg PO DAILY [facility] Last Admin: 06/19/17 09:27 Dose: 40 mg Propranolol HCl (Inderal) 10 mg PO TID [facility] Last Admin: 06/19/17 09:28 Dose: Not Given - Labs Labs: 06/19/17 06:22 06/19/17 06:26 PT 25.3 SECONDS (9.7-12.2) H 06/19/17 06:30 INR 2.2 06/19/17 06:30 APTT 72 SECONDS (21-34) H D 06/19/17 06:30
--- NOTE | 2017-06-19 13:29 | RAD ---
HISTORY: S/P Thoracentesis for Large Left Pleural Effusion COMPARISON: 06/18/2017. FINDINGS: LUNGS: The right lung is well inflated and clear. There is left lower lobe consolidation. PLEURA: No small right and worsening moderate left pleural effusions, no pneumothorax apparent. CARDIOVASCULAR: Normal. OSSEOUS STRUCTURES: No significant abnormalities. VISUALIZED UPPER ABDOMEN: Normal. OTHER FINDINGS: None. IMPRESSION: Left lower lobe pneumonia and worsening moderate left pleural effusion. Small right pleural effusion pain
[2017-06-19 13:31] LABS: CA 19-9 16.9 U/mL (0-37)
[2017-06-19 15:10] LABS: CARCINOEMBRYONIC ANTIGEN 2.2 ng/mL (0-3.0)
--- NOTE | 2017-06-19 15:36 | CP.PCM.CON ---
History of Present Illness - History of Present Illness History of Present Illness: 57 yo M w/ pmh of htn, hep C, liver cirrhosis and CKD III, presented [facility]p fall [facility], found to have large L pleural effusion, AMS and sepsis, nephrology being consulted for acute renal failure; History from patient is limited and unreliable given his mental status; Patient underwent thoracentesis in ED with 2.5L of straw colored fluid drained; patient also given albumin 25 g due to marked hypotension and started on zosyn due to concern for sepsis before being admitted to ICU; Per nursing staff, urine output < 300 cc from yesterday; patient refusing labs and central venous catheter; Review of Systems - Review of Systems Review of Systems: limited and unreliable info from patient; - Cardiovascular Cardiovascular: Chest Pain Past Patient History - Infectious Disease Hx of Infectious Diseases: None - Past Medical History & Family History Past Medical History?: Yes Pertinent Family History: not available; - Past Social History Smoking Status: Never Smoked - CARDIAC Hx Hypercholesterolemia: Yes Hx Hypertension: Yes - PULMONARY Hx Respiratory Disorders: No - NEUROLOGICAL Hx Neurological Disorder: No - HEENT Hx HEENT Problems: No - RENAL Hx Chronic Kidney Disease: No - ENDOCRINE/METABOLIC Hx Endocrine Disorders: No - HEMATOLOGICAL/ONCOLOGICAL Hx Anemia: Yes - INTEGUMENTARY Hx Dermatological Problems: No - MUSCULOSKELETAL/RHEUMATOLOGICAL Hx Arthritis: Yes - GASTROINTESTINAL Hx Gastrointestinal Disorders: Yes Hx Liver Failure: Yes (HX:"ALCOHOLOIC CIRRHOSIS OF LIVER") Other/Comment: HX: ASCITIES - GENITOURINARY/GYNECOLOGICAL Hx Genitourinary Disorders: No - PSYCHIATRIC Hx Anxiety: Yes Hx Substance Use: Yes - SURGICAL HISTORY Hx Surgeries: No - ANESTHESIA Hx Anesthesia: No Meds Allergies/Adverse Reactions: Allergies Allergy/AdvReac Type Severity Reaction Status Date / Time No Known Allergies Allergy Verified 06/18/17 09:22 - Medications Medications: Current Medications Albumin Human (Albumin Human 25% (12.5 Gm/50 Ml)) 12.5 gm IV Q4H [facility] Stop: 06/20/17 06:31 Last Admin: 06/19/17 15:10 Dose: 12.5 gm Ferrous Sulfate (Feosol) 325 mg PO BID [facility] Piperacillin Sod/Tazobactam Sod (Zosyn 2.25 Gm Iv Premix) 2.25 gm in 50 mls @ 100 mls/hr IVPB Q6H [facility] Last Admin: 06/19/17 14:19 Dose: 100 mls/hr Sodium Bicarbonate 150 meq/ (Dextrose) 1,000 mls @ 45 mls/hr IV .[id number] [facility] Last Admin: 06/18/17 18:48 Dose: 45 mls/hr Lactulose (Enulose) 20 gm PO Q6H [facility] Last Admin: 06/19/17 15:00 Dose: Not Given Levetiracetam (Keppra) 500 mg PO BID [facility] Last Admin: 06/19/17 09:27 Dose: 500 mg Midodrine (Proamatine) 7.5 mg PO Q8H [facility] Neomycin Sulfate (Neomycin Tab) 500 mg PO Q6 [facility] Last Admin: 06/19/17 12:43 Dose: 500 mg Nicotine (Nicoderm Cq) 1 patch TD DAILY [facility] Last Admin: 06/19/17 09:28 Dose: 1 patch Octreotide Acetate (Sandostatin) 100 mcg SC Q8H [facility] Pantoprazole Sodium (Protonix Ec Tab) 40 mg PO DAILY [facility] Last Admin: 06/19/17 09:27 Dose: 40 mg Propranolol HCl (Inderal) 10 mg PO TID [facility] Last Admin: 06/19/17 14:00 Dose: Not Given Rifaximin (Xifaxan) 550 mg PO BID [facility] Saccharomyces Boulardii (Florastor) 250 mg PO BID [facility] Physical Exam - Constitutional Appears: No Acute Distress, Cachectic - Eye Exam Additional comments: mild scleral icterus; - ENT Exam ENT Exam: Mucous Membranes Moist - Respiratory Exam Additional comments: mildly decreased breath sounds at bases; - Cardiovascular Exam Cardiovascular Exam: RRR, +S1, +S2 - GI/Abdominal Exam GI & Abdominal Exam: Distended, Soft - Extremities Exam Additional comments: mild/moderate edema of proximal legs; - Neurological Exam Neurological exam: Altered Additional comments: tremors of outstretched hands; - Skin Skin Exam: Warm Additional comments: no cyanosis; Results - Vital Signs Recent Vital Signs: Last Vital Signs Temp 98.0 F 06/19/17 12:00 Pulse 74 06/19/17 13:27 Resp 18 06/19/17 13:27 BP 88/35 L 06/19/17 13:27 Pulse Ox 98 06/19/17 13:27 - Labs Result Diagrams: 06/19/17 06:22 06/19/17 06:26 Labs: Laboratory Results - last 24 hr 06/18/17 06/18/17 06/18/17 16:50 16:53 17:16 WBC RBC Hgb Hct MCV MCH MCHC RDW Plt Count MPV Neut % (Auto) Lymph % (Auto) [place] % (Auto) Eos % (Auto) Baso % (Auto) Neut # Lymph # [place] # Eos # Baso # Neutrophils % (Manual) Band Neutrophils % Lymphocytes % (Manual) Monocytes % (Manual) Toxic Granulation Platelet Estimate Polychromasia Hypochromasia (manual) Poikilocytosis (manual Anisocytosis (manual) Macrocytosis (manual) Ovalocytes Cass[place] Cells PT INR APTT Puncture Site pCO2 pO2 HCO3 ABG pH ABG Total CO2 ABG O2 Saturation ABG Base Excess ABG Hemoglobin ABG Carboxyhemoglobin POC ABG HHb (Measured) ABG Methemoglobin Justice Test ABG Potassium A-a O2 Difference Respiratory Index Hgb O2 Saturation Sodium Chloride Glucose Lactate Liter Flow FiO2 Crit Value Called To Crit Value Called By Crit Value Read Back Blood Gas Notified Time Potassium Carbon Dioxide Anion Gap BUN Creatinine Est GFR ( Amer) Est GFR (Non-Af Amer) POC Glucose (mg/dL) 58 L 60 L Random Glucose Calcium Phosphorus Magnesium Total Bilirubin AST ALT Alkaline Phosphatase Ammonia Total Protein Albumin Globulin Albumin/Globulin Ratio Alpha Fetoprotein Carcinoembryonic Ag CA 19-9 Antigen Arterial Blood Potassium Ur Random Creatinine 289.8 Ur Random Sodium < 5 Ur Random Urea Nitrogn 246 06/18/17 06/18/17 06/18/17 17:33 20:20 21:13 WBC RBC Hgb Hct MCV MCH MCHC RDW Plt Count MPV Neut % (Auto) Lymph % (Auto) [place] % (Auto) Eos % (Auto) Baso % (Auto) Neut # Lymph # [place] # Eos # Baso # Neutrophils % (Manual) Band Neutrophils % Lymphocytes % (Manual) Monocytes % (Manual) Toxic Granulation Platelet Estimate Polychromasia Hypochromasia (manual) Poikilocytosis (manual Anisocytosis (manual) Macrocytosis (manual) Ovalocytes Cassoday Cells PT INR APTT Puncture Site Rba pCO2 28 L pO2 95 HCO3 17.0 L ABG pH 7.32 L ABG Total CO2 15.3 L ABG O2 Saturation 99.7 H ABG Base Excess -10.2 L ABG Hemoglobin ABG Carboxyhemoglobin POC ABG HHb (Measured) ABG Methemoglobin Justice Test Pos ABG Potassium 5.4 H A-a O2 Difference 191.0 Respiratory Index 2.0 Hgb O2 Saturation Sodium 129.0 L Chloride 102.0 Glucose 111 H Lactate 4.2 H* Liter Flow 6.0 FiO2 45.0 Crit Value Called To Dr vázquez Crit Value Called By [facility] Crit Value Read Back Y Blood Gas Notified Time 2026 Potassium Carbon Dioxide Anion Gap BUN Creatinine Est GFR ( Amer) Est GFR (Non-Af Amer) POC Glucose (mg/dL) 127 H 110 Random Glucose Calcium Phosphorus Magnesium Total Bilirubin AST ALT Alkaline Phosphatase Ammonia Total Protein Albumin Globulin Albumin/Globulin Ratio Alpha Fetoprotein Carcinoembryonic Ag CA 19-9 Antigen Arterial Blood Potassium 5.4 H Ur Random Creatinine Ur Random Sodium Ur Random Urea Nitrogn 06/19/17 06/19/17 06/19/17 05:17 06:22 06:26 WBC 19.3 H RBC 2.60 L Hgb 9.0 L D Hct 27.1 L MCV 104.2 H MCH 34.8 H MCHC 33.4 RDW 21.0 H Plt Count 90 L D MPV 9.5 Neut % (Auto) 83.6 H Lymph % (Auto) 8.9 L [place] % (Auto) 7.0 Eos % (Auto) 0.0 Baso % (Auto) 0.5 Neut # 16.1 H Lymph # 1.7 [place] # 1.4 H Eos # 0.0 Baso # 0.1 Neutrophils % (Manual) 86 H Band Neutrophils % 9 H Lymphocytes % (Manual) 4 L Monocytes % (Manual) 1 Toxic Granulation Present Platelet Estimate Decreased L Polychromasia Slight Hypochromasia (manual) Slight Poikilocytosis (manual Slight Anisocytosis (manual) Moderate Macrocytosis (manual) Slight Ovalocytes Slight Ze Cells Slight PT INR APTT Puncture Site R bra pCO2 31 L pO2 77 L HCO3 19.7 L ABG pH 7.37 ABG Total CO2 18.9 L ABG O2 Saturation 98.2 H ABG Base Excess -6.6 L ABG Hemoglobin 9.1 L ABG Carboxyhemoglobin 3.2 H POC ABG HHb (Measured) 1.7 ABG Methemoglobin 0.9 Justice Test Na ABG Potassium A-a O2 Difference Respiratory Index Hgb O2 Saturation 94.2 L Sodium 125 L Chloride 97 L Glucose Lactate Liter Flow 4.0 FiO2 Crit Value Called To Crit Value Called By Crit Value Read Back Blood Gas Notified Time Potassium 5.2 Carbon Dioxide 18 L Anion Gap 16 BUN 70 H Creatinine 3.3 H Est GFR ( Amer) 24 Est GFR (Non-Af Amer) 20 POC Glucose (mg/dL) Random Glucose 81 Calcium 7.5 L Phosphorus 6.6 H Magnesium 2.0 Total Bilirubin 4.5 H AST 25 ALT 29 Alkaline Phosphatase 49 Ammonia Total Protein 5.6 L Albumin 2.1 L Globulin 3.4 Albumin/Globulin Ratio 0.6 L Alpha Fetoprotein Carcinoembryonic Ag CA 19-9 Antigen Arterial Blood Potassium Ur Random Creatinine Ur Random Sodium Ur Random Urea Nitrogn 06/19/17 06/19/17 06/19/17 06:26 06:30 07:25 WBC RBC Hgb Hct MCV MCH MCHC RDW Plt Count MPV Neut % (Auto) Lymph % (Auto) [place] % (Auto) Eos % (Auto) Baso % (Auto) Neut # Lymph # [place] # Eos # Baso # Neutrophils % (Manual) Band Neutrophils % Lymphocytes % (Manual) Monocytes % (Manual) Toxic Granulation Platelet Estimate Polychromasia Hypochromasia (manual) Poikilocytosis (manual Anisocytosis (manual) Macrocytosis (manual) Ovalocytes Cassoday Cells PT 25.3 H INR 2.2 APTT 72 H D Puncture Site pCO2 pO2 HCO3 ABG pH ABG Total CO2 ABG O2 Saturation ABG Base Excess ABG Hemoglobin ABG Carboxyhemoglobin POC ABG HHb (Measured) ABG Methemoglobin Justice Test ABG Potassium A-a O2 Difference Respiratory Index Hgb O2 Saturation Sodium Chloride Glucose Lactate Liter Flow FiO2 Crit Value Called To Crit Value Called By Crit Value Read Back Blood Gas Notified Time Potassium Carbon Dioxide Anion Gap BUN Creatinine Est GFR ( Amer) Est GFR (Non-Af Amer) POC Glucose (mg/dL) 84 Random Glucose Calcium Phosphorus Magnesium Total Bilirubin AST ALT Alkaline Phosphatase Ammonia 152 H D Total Protein Albumin Globulin Albumin/Globulin Ratio Alpha Fetoprotein Carcinoembryonic Ag CA 19-9 Antigen Arterial Blood Potassium Ur Random Creatinine Ur Random Sodium Ur Random Urea Nitrogn 06/19/17 06/19/17 06/19/17 12:32 12:36 12:36 WBC RBC Hgb Hct MCV MCH MCHC RDW Plt Count MPV Neut % (Auto) Lymph % (Auto) [place] % (Auto) Eos % (Auto) Baso % (Auto) Neut # Lymph # [place] # Eos # Baso # Neutrophils % (Manual) Band Neutrophils % Lymphocytes % (Manual) Monocytes % (Manual) Toxic Granulation Platelet Estimate Polychromasia Hypochromasia (manual) Poikilocytosis (manual Anisocytosis (manual) Macrocytosis (manual) Ovalocytes [place] Cells PT INR APTT Puncture Site pCO2 pO2 HCO3 ABG pH ABG Total CO2 ABG O2 Saturation ABG Base Excess ABG Hemoglobin ABG Carboxyhemoglobin POC ABG HHb (Measured) ABG Methemoglobin Justice Test ABG Potassium A-a O2 Difference Respiratory Index Hgb O2 Saturation Sodium Chloride Glucose Lactate Liter Flow FiO2 Crit Value Called To Crit Value Called By Crit Value Read Back Blood Gas Notified Time Potassium Carbon Dioxide Anion Gap BUN Creatinine Est GFR ( Amer) Est GFR (Non-Af Amer) POC Glucose (mg/dL) 95 Random Glucose Calcium Phosphorus Magnesium Total Bilirubin AST ALT Alkaline Phosphatase Ammonia Total Protein Albumin Globulin Albumin/Globulin Ratio Alpha Fetoprotein 50.4 H Carcinoembryonic Ag 2.2 CA 19-9 Antigen 16.9 Arterial Blood Potassium Ur Random Creatinine Ur Random Sodium Ur Random Urea Nitrogn 06/19/17 12:36 WBC RBC Hgb Hct MCV MCH MCHC RDW Plt Count MPV Neut % (Auto) Lymph % (Auto) [place] % (Auto) Eos % (Auto) Baso % (Auto) Neut # Lymph # [place] # Eos # Baso # Neutrophils % (Manual) Band Neutrophils % Lymphocytes % (Manual) Monocytes % (Manual) Toxic Granulation Platelet Estimate Polychromasia Hypochromasia (manual) Poikilocytosis (manual Anisocytosis (manual) Macrocytosis (manual) Ovalocytes Ze Cells PT INR APTT Puncture Site pCO2 pO2 HCO3 ABG pH ABG Total CO2 ABG O2 Saturation ABG Base Excess ABG Hemoglobin ABG Carboxyhemoglobin POC ABG HHb (Measured) ABG Methemoglobin Justice Test ABG Potassium A-a O2 Difference Respiratory Index Hgb O2 Saturation Sodium Chloride Glucose Lactate Liter Flow FiO2 Crit Value Called To Crit Value Called By Crit Value Read Back Blood Gas Notified Time Potassium Carbon Dioxide Anion Gap BUN Creatinine Est GFR ( Amer) Est GFR (Non-Af Amer) POC Glucose (mg/dL) Random Glucose Calcium Phosphorus Magnesium Total Bilirubin AST ALT Alkaline Phosphatase Ammonia Total Protein Albumin Globulin Albumin/Globulin Ratio Alpha Fetoprotein Carcinoembryonic Ag CA 19-9 Antigen Arterial Blood Potassium Ur Random Creatinine Ur Random Sodium < 5 Ur Random Urea Nitrogn - Imaging and Cardiology Chest x-ray Status: Image reviewed by me Additional comment: L base haziness; Assessment & Plan (1) Acute renal failure Assessment and Plan: MICHELINE on CKD IIIB; oliguric renal failure with several possibilities including progressive underlying glomerulonephritis, ATN from sepsis/hypotension and finally type I hepatorenal syndrome; given persistent hypotension and persistently low urine Na despite intravascular volume expansion with IV albumin (1g/kg over 24 hrs), we will initiate treatment for HRS; -will continue IV albumin with an additional 1g/kg over the next 24 hrs -starting midodrine 7.5 mg q8h and octreotide 100 mg subcu q8h (should switch to levophed once central line available) Status: Acute (2) Glomerulonephritis Assessment and Plan: High suspicion for glomerulonephritis based on previous active urine sediment and serologic workup; likely due to hep C (with cryoglobulinemia despite negative serologic test); patient previously refused renal biopsy; currently, biopsy is unsafe (coagulopathy, thrombocytopenia) and patient will not be able to tolerate any immunosuppressive treatment until he is stabilized and deemed free from sepsis; -repeating C3, C4, rheumatoid factor and cryoglobulin tests -if patient's mental status improves and he is clinically stable, we will again broach the issue of renal biopsy; Status: Acute (3) Sepsis Assessment and Plan: Marked leukocytosis; concern for SBP; patient on empiric coverage with zosyn, correctly dosed for CrCl < 10; Status: Acute (4) Hepatic encephalopathy Assessment and Plan: With persistently high ammonia level; started on lactulose, should titrate upward the dose to achieve 2-3 loose BM per day; will start rifaximin as well; Status: Acute (5) Ascites Assessment and Plan: Patient for large volume paracentesis tomorrow; need to give IV albumin soon afterward to avoid further hypotension and worsening of hepatorenal syndrome ( give 6g for each 1L removed); continue to hold diuretics until patient is clinically much improved; Status: Acute (6) Hyperkalemia Assessment and Plan: Improved with kayexalate yesterday; should improve further once having adequate BM; Status: Acute (7) Hyponatremia Assessment and Plan: Portends poor overall prognosis; continue PO fluid restriction <1L per day; Status: Acute (8) Metabolic acidosis Assessment and Plan: Mainly non-gap acidosis due to renal failure; continue low dose bicarb drip for now; Status: Acute - Assessment and Plan (Free Text) Assessment: Total critical care time spent evaluating patient and discussing with primary/ CCM attendings > 45 minutes;
[2017-06-19 16:00] LABS: RBC URINE 29 /hpf (0-3); URINE BACTERIA RARE (<OCC); URINE BILIRUBIN NEGATIVE (NEGATIVE); URINE BLOOD 3+ (NEGATIVE); URINE CALCIUM OXALATE CRYSTALS OCC /hpf (<OCC); URINE GLUCOSE (UA) NORMAL (Normal); URINE HYALINE CAST >20 /lpf (0-2); URINE KETONE NEGATIVE (NEGATIVE); URINE LEUKOCYTE ESTERASE 3+ Leu/uL (Negative); URINE PROTEIN 1+ mg/dL (NEGATIVE); URINE UROBILINOGEN NORMAL mg/dL (0.2-1.0); WBC CLUMPS RARE /hpf; WBC URINE 49 /hpf (0-5)
[2017-06-19 16:25] LABS: URINE COLOR YELLOW (YELLOW)
[2017-06-19] MEDS: Sodium Bicarbonate 8.4% 150 MEQ in Dextrose 5% In Water 850 ML IV SCH (17:00)
--- NOTE | 2017-06-19 17:22 | CP.CCUPN ---
CCU Subjective - Physician Review Events Since Last Encounter (Free Text): 06/19/17 17:20 Patient is a 56-year-old male with a history of hepatitis, liver disease, liver cirrhosis, end-stage liver disease, complicated with recurrent ascites. Patient had multiple paracentesis. Ad[facility] with the fall from prison, weakness. Shortness of breath. Patient had 2.5 L of fluid removed from the left pleural effusion. Patient is currently in the low blood pressure. Worsening renal failure noted. Patient is somewhat confused. He is also answering only simple questions. Patient was seen by multiple specialists. He has a tense ascites, which needs to be removed, but the patient is at high risk for again hypotension, and multiorgan failure complications. Currently patient has a possibility of decompensated liver failure, sepsis. In my opinion patient's overall prognosis is very poor Patient is DNR from prior admissions. Continue the supportive care only. Paracentesis if possible CCU Objective - Vital Signs / Intake & Output Vital Signs (Last 4 hours): Vital Signs Temp Pulse Resp BP Pulse Ox 06/19/17 16:22 71 17 87/34 L 06/19/17 16:00 98.4 F 76 22 06/19/17 15:40 81 21 78/26 L 06/19/17 15:38 75 22 78/34 L 06/19/17 15:00 74 16 06/19/17 14:23 74 20 82/36 L 06/19/17 14:20 78 16 84/33 L 06/19/17 14:00 77 19 06/19/17 13:27 74 18 88/35 L 98 06/19/17 13:23 74 16 88/35 L 100 Intake and Output (Last 8hrs): Intake & Output 06/19/17 06/19/17 06/19/17 06:59 14:59 22:59 Intake Total 610 770 90 Output Total 100 Balance 510 770 90 Weight 136 lb 12.8 oz Intake: Intake, IV Amount 510 270 90 Left Wrist 360 270 90 Lt wrist 150 Oral 100 500 Output: Urine 100 Urethral (Bosch) 100 Other: # Bowel Movements 0 0 - Medications Active Medications: Active Medications Generic Name Dose Route Start Last Admin Trade Name Freq PRN Reason Stop Dose Admin Albumin Human 12.5 gm 06/19/17 14:30 06/19/17 15:10 Albumin Human 25% (12.5 Gm/50 Ml) IV 06/20/17 06:31 12.5 gm Q4H KARL Administration Ferrous Sulfate 325 mg 06/19/17 18:00 Feosol PO BID KARL Piperacillin Sod/Tazobactam Sod 2.25 gm in 50 mls @ 100 mls/hr 06/18/17 20:00 06/19/17 14:19 Zosyn 2.25 Gm Iv Premix IVPB 100 mls/hr Q6H KARL Administration Sodium Bicarbonate 150 meq/ 1,000 mls @ 45 mls/hr 06/18/17 18:30 06/18/17 18: 48 Dextrose IV 45 mls/hr .[id number] KARL Administration Lactulose 20 gm 06/18/17 15:00 06/19/17 15:00 Enulose PO Not Given Q6H KARL Levetiracetam 500 mg 06/18/17 18:00 06/19/17 09:27 Keppra PO 500 mg BID KARL Administration Midodrine 7.5 mg 06/19/17 15:30 06/19/17 16:02 Proamatine PO 7.5 mg Q8H KARL Administration Neomycin Sulfate 500 mg 06/19/17 12:00 06/19/17 12:43 Neomycin Tab PO 500 mg Q6 [facility] Administration Nicotine 1 patch 06/19/17 10:00 06/19/17 09:28 Nicoderm Cq TD 1 patch DAILY [facility] Administration Octreotide Acetate 100 mcg 06/19/17 15:30 06/19/17 16:02 Sandostatin SC 100 mcg Q8H KARL Administration Pantoprazole Sodium 40 mg 06/19/17 10:00 06/19/17 09:27 Protonix Ec Tab PO 40 mg DAILY [facility] Administration Propranolol HCl 10 mg 06/18/17 18:00 06/19/17 14:00 Inderal PO Not Given TID [facility] Rifaximin 550 mg 06/19/17 18:00 Xifaxan PO BID [facility] Saccharomyces Boulardii 250 mg 06/19/17 18:00 Florastor PO BID [facility] - Patient Studies Lab Studies: Microbiology Studies 06/18/17 Unknown MRSA Culture (Admit) - Final Naris MRSA NOT DETECTED 06/18/17 14:15 Gram Stain - Final Pleural Fluid Body Fluid Culture - Preliminary NO GROWTH AFTER 24 HOURS Lab Studies 06/19/17 06/19/1706/19/17 Range/Units 16:06 16:00 15:47 WBC (4.8-10.8) K/uL RBC (4.40-5.90) Mil/uL Hgb (12.0-18.0) g/dL Hct (35.0-51.0) % MCV (80.0-94.0) fL MCH (27.0-31.0) pg MCHC (33.0-37.0) g/dL RDW (11.5-14.5) % Plt Count (130-400) K/uL MPV (7.2-11.7) fL Neut % (Auto) (50.0-75.0) % Lymph % (Auto) (20.0-40.0) % Bucks % (Auto) (0.0-10.0) % Eos % (Auto) (0.0-4.0) % Baso % (Auto) (0.0-2.0) % Neut # (1.8-7.0) K/uL Lymph # (1.0-4.3) K/uL Bucks # (0.0-0.8) K/uL Eos # (0.0-0.7) K/uL Baso # (0.0-0.2) K/uL Neutrophils % (Manual) (50-75) % Band Neutrophils % (0-2) % Lymphocytes % (Manual) (20-40) % Monocytes % (Manual) (0-10) % Toxic Granulation Platelet Estimate (NORMAL) Polychromasia Hypochromasia (manual) Poikilocytosis (manual Anisocytosis (manual) Macrocytosis (manual) Ovalocytes Ze Cells PT (9.7-12.2) SECONDS INR APTT (21-34) SECONDS Puncture Site pCO2 (35-45) mm/Hg pO2 (80-100) mm/Hg HCO3 (21-28) mmol/L ABG pH (7.35-7.45) ABG Total CO2 (22-28) mmol/L ABG O2 Saturation (95-98) % ABG Base Excess (-2.0-3.0) mmol/L ABG Hemoglobin (11.7-17.4) g/dL ABG Carboxyhemoglobin (0.5-1.5) % POC ABG HHb (Measured) (0.0-5.0) % ABG Methemoglobin (0.0-3.0) % Justice Test ABG Potassium (3.6-5.2) mmol/L A-a O2 Difference mm/Hg Respiratory Index Hgb O2 Saturation (95.0-98.0) % Sodium (132-148) mmol/l Chloride (98-107) mmol/L Glucose (75-110) mg/dl Lactate (0.7-2.1) mmol/L Liter Flow FiO2 % Crit Value Called To Crit Value Called By Crit Value Read Back Blood Gas Notified Time Potassium (3.6-5.2) mmol/L Carbon Dioxide (22-30) mmol/L Anion Gap (10-20) BUN (9-20) mg/dL Creatinine (0.8-1.5) mg/dL Est GFR ( Amer) Est GFR (Non-Af Amer) POC Glucose (mg/dL) 109 (65-110) mg/dL Random Glucose (75-110) mg/dL Calcium (8.6-10.4) mg/dl Phosphorus (2.5-4.5) mg/dL Magnesium (1.6-2.3) mg/dL Total Bilirubin (0.2-1.3) mg/dL AST (17-59) U/L ALT (21-72) U/L Alkaline Phosphatase (38-126) U/L Ammonia (9-33) umol/L Total Protein (6.3-8.3) g/dL Albumin (3.5-5.0) g/dL Globulin (2.2-3.9) gm/dL Albumin/Globulin Ratio (1.0-2.1) Alpha Fetoprotein (0.0-7.5) ng/mL Carcinoembryonic Ag (0-3.0) ng/mL CA 19-9 Antigen (0-37) U/mL Arterial Blood Potassium (3.6-5.2) mmol/L Urine Color (YELLOW) Urine Clarity (Clear) Urine pH (5.0-8.0) Ur Specific [place] (1.003-1.030) Urine Protein (NEGATIVE) mg/dL Urine Glucose (UA) (Normal) mg/dL Urine Ketones (NEGATIVE) mg/dL Urine Blood (NEGATIVE) Urine Nitrate (NEGATIVE) Urine Bilirubin (NEGATIVE) Urine Urobilinogen (0.2-1.0) mg/dL Ur Leukocyte Esterase (Negative) Nyasia/uL Urine WBC (Auto) (0-5) /hpf Urine RBC (Auto) (0-3) /hpf Urine WBC Clumps (Auto) (NONE) /hpf Ur Squamous Epith Cells (0-5) /hpf Calcium Oxalate Crystal (<OCC) /hpf Urine Bacteria (<OCC) Hyaline Casts (0-2) /lpf Ur Random Creatinine 193.0 mg/dL U Random Total Protein 31.0 H Cancelled Ur Random Sodium mmol/L Ur Random Urea Nitrogn mg/dL Urine Microalbumin (0.0-16.6) mg/L 06/19/17 06/19/17 06/19/17 Range/Units 15:47 15:47 12:36 WBC (4.8-10.8) K/uL RBC (4.40-5.90) Mil/uL Hgb (12.0-18.0) g/dL Hct (35.0-51.0) % MCV (80.0-94.0) fL MCH (27.0-31.0) pg MCHC (33.0-37.0) g/dL RDW (11.5-14.5) % Plt Count (130-400) K/uL MPV (7.2-11.7) fL Neut % (Auto) (50.0-75.0) % Lymph % (Auto) (20.0-40.0) % Bucks % (Auto) (0.0-10.0) % Eos % (Auto) (0.0-4.0) % Baso % (Auto) (0.0-2.0) % Neut # (1.8-7.0) K/uL Lymph # (1.0-4.3) K/uL Bucks # (0.0-0.8) K/uL Eos # (0.0-0.7) K/uL Baso # (0.0-0.2) K/uL Neutrophils % (Manual) (50-75) % Band Neutrophils % (0-2) % Lymphocytes % (Manual) (20-40) % Monocytes % (Manual) (0-10) % Toxic Granulation Platelet Estimate (NORMAL) Polychromasia Hypochromasia (manual) Poikilocytosis (manual Anisocytosis (manual) Macrocytosis (manual) Ovalocytes [place] Cells PT (9.7-12.2) SECONDS INR APTT (21-34) SECONDS Puncture Site pCO2 (35-45) mm/Hg pO2 (80-100) mm/Hg HCO3 (21-28) mmol/L ABG pH (7.35-7.45) ABG Total CO2 (22-28) mmol/L ABG O2 Saturation (95-98) % ABG Base Excess (-2.0-3.0) mmol/L ABG Hemoglobin (11.7-17.4) g/dL ABG Carboxyhemoglobin (0.5-1.5) % POC ABG HHb (Measured) (0.0-5.0) % ABG Methemoglobin (0.0-3.0) % Justice Test ABG Potassium (3.6-5.2) mmol/L A-a O2 Difference mm/Hg Respiratory Index Hgb O2 Saturation (95.0-98.0) % Sodium (132-148) mmol/l Chloride (98-107) mmol/L Glucose (75-110) mg/dl Lactate (0.7-2.1) mmol/L Liter Flow FiO2 % Crit Value Called To Crit Value Called By Crit Value Read Back Blood Gas Notified Time Potassium (3.6-5.2) mmol/L Carbon Dioxide (22-30) mmol/L Anion Gap (10-20) BUN (9-20) mg/dL Creatinine (0.8-1.5) mg/dL Est GFR ( Amer) Est GFR (Non-Af Amer) POC Glucose (mg/dL) (65-110) mg/dL Random Glucose (75-110) mg/dL Calcium (8.6-10.4) mg/dl Phosphorus (2.5-4.5) mg/dL Magnesium (1.6-2.3) mg/dL Total Bilirubin (0.2-1.3) mg/dL AST (17-59) U/L ALT (21-72) U/L Alkaline Phosphatase (38-126) U/L Ammonia (9-33) umol/L Total Protein (6.3-8.3) g/dL Albumin (3.5-5.0) g/dL Globulin (2.2-3.9) gm/dL Albumin/Globulin Ratio (1.0-2.1) Alpha Fetoprotein (0.0-7.5) ng/mL Carcinoembryonic Ag (0-3.0) ng/mL CA 19-9 Antigen (0-37) U/mL Arterial Blood Potassium (3.6-5.2) mmol/L Urine Color Yellow (YELLOW) Urine Clarity Hazy (Clear) Urine pH 5.0 (5.0-8.0) Ur Specific [place] 1.020 (1.003-1.030) Urine Protein 1+ H (NEGATIVE) mg/dL Urine Glucose (UA) Normal (Normal) mg/dL Urine Ketones Negative (NEGATIVE) mg/dL Urine Blood 3+ H (NEGATIVE) Urine Nitrate Negative (NEGATIVE) Urine Bilirubin Negative (NEGATIVE) Urine Urobilinogen Normal (0.2-1.0) mg/dL Ur Leukocyte Esterase 3+ H (Negative) Nyasia/uL Urine WBC (Auto) 49 H (0-5) /hpf Urine RBC (Auto) 29 H (0-3) /hpf Urine WBC Clumps (Auto) Rare H (NONE) /hpf Ur Squamous Epith Cells 2 (0-5) /hpf Calcium Oxalate Crystal Occ H (<OCC) /hpf Urine Bacteria Rare (<OCC) Hyaline Casts >20 H (0-2) /lpf Ur Random Creatinine mg/dL U Random Total Protein Ur Random Sodium < 5 mmol/L Ur Random Urea Nitrogn mg/dL Urine Microalbumin 105.1 H (0.0-16.6) mg/L 06/19/17 06/19/17 06/19/17 Range/Units 12:36 12:36 12:32 WBC (4.8-10.8) K/uL RBC (4.40-5.90) Mil/uL Hgb (12.0-18.0) g/dL Hct (35.0-51.0) % MCV (80.0-94.0) fL MCH (27.0-31.0) pg MCHC (33.0-37.0) g/dL RDW (11.5-14.5) % Plt Count (130-400) K/uL MPV (7.2-11.7) fL Neut % (Auto) (50.0-75.0) % Lymph % (Auto) (20.0-40.0) % Bucks % (Auto) (0.0-10.0) % Eos % (Auto) (0.0-4.0) % Baso % (Auto) (0.0-2.0) % Neut # (1.8-7.0) K/uL Lymph # (1.0-4.3) K/uL Bucks # (0.0-0.8) K/uL Eos # (0.0-0.7) K/uL Baso # (0.0-0.2) K/uL Neutrophils % (Manual) (50-75) % Band Neutrophils % (0-2) % Lymphocytes % (Manual) (20-40) % Monocytes % (Manual) (0-10) % Toxic Granulation Platelet Estimate (NORMAL) Polychromasia Hypochromasia (manual) Poikilocytosis (manual Anisocytosis (manual) Macrocytosis (manual) Ovalocytes [place] Cells PT (9.7-12.2) SECONDS INR APTT (21-34) SECONDS Puncture Site pCO2 (35-45) mm/Hg pO2 (80-100) mm/Hg HCO3 (21-28) mmol/L ABG pH (7.35-7.45) ABG Total CO2 (22-28) mmol/L ABG O2 Saturation (95-98) % ABG Base Excess (-2.0-3.0) mmol/L ABG Hemoglobin (11.7-17.4) g/dL ABG Carboxyhemoglobin (0.5-1.5) % POC ABG HHb (Measured) (0.0-5.0) % ABG Methemoglobin (0.0-3.0) % Justice Test ABG Potassium (3.6-5.2) mmol/L A-a O2 Difference mm/Hg Respiratory Index Hgb O2 Saturation (95.0-98.0) % Sodium (132-148) mmol/l Chloride (98-107) mmol/L Glucose (75-110) mg/dl Lactate (0.7-2.1) mmol/L Liter Flow FiO2 % Crit Value Called To Crit Value Called By Crit Value Read Back Blood Gas Notified Time Potassium (3.6-5.2) mmol/L Carbon Dioxide (22-30) mmol/L Anion Gap (10-20) BUN (9-20) mg/dL Creatinine (0.8-1.5) mg/dL Est GFR ( Amer) Est GFR (Non-Af Amer) POC Glucose (mg/dL) 95 (65-110) mg/dL Random Glucose (75-110) mg/dL Calcium (8.6-10.4) mg/dl Phosphorus (2.5-4.5) mg/dL Magnesium (1.6-2.3) mg/dL Total Bilirubin (0.2-1.3) mg/dL AST (17-59) U/L ALT (21-72) U/L Alkaline Phosphatase (38-126) U/L Ammonia (9-33) umol/L Total Protein (6.3-8.3) g/dL Albumin (3.5-5.0) g/dL Globulin (2.2-3.9) gm/dL Albumin/Globulin Ratio (1.0-2.1) Alpha Fetoprotein 50.4 H (0.0-7.5) ng/mL Carcinoembryonic Ag 2.2 (0-3.0) ng/mL CA 19-9 Antigen 16.9 (0-37) U/mL Arterial Blood Potassium (3.6-5.2) mmol/L Urine Color (YELLOW) Urine Clarity (Clear) Urine pH (5.0-8.0) Ur Specific [place] (1.003-1.030) Urine Protein (NEGATIVE) mg/dL Urine Glucose (UA) (Normal) mg/dL Urine Ketones (NEGATIVE) mg/dL Urine Blood (NEGATIVE) Urine Nitrate (NEGATIVE) Urine Bilirubin (NEGATIVE) Urine Urobilinogen (0.2-1.0) mg/dL Ur Leukocyte Esterase (Negative) Nyasia/uL Urine WBC (Auto) (0-5) /hpf Urine RBC (Auto) (0-3) /hpf Urine WBC Clumps (Auto) (NONE) /hpf Ur Squamous Epith Cells (0-5) /hpf Calcium Oxalate Crystal (<OCC) /hpf Urine Bacteria (<OCC) Hyaline Casts (0-2) /lpf Ur Random Creatinine mg/dL U Random Total Protein Ur Random Sodium mmol/L Ur Random Urea Nitrogn mg/dL Urine Microalbumin (0.0-16.6) mg/L 06/19/17 06/19/17 06/19/17 Range/Units 07:25 06:30 06:26 WBC (4.8-10.8) K/uL RBC (4.40-5.90) Mil/uL Hgb (12.0-18.0) g/dL Hct (35.0-51.0) % MCV (80.0-94.0) fL MCH (27.0-31.0) pg MCHC (33.0-37.0) g/dL RDW (11.5-14.5) % Plt Count (130-400) K/uL MPV (7.2-11.7) fL Neut % (Auto) (50.0-75.0) % Lymph % (Auto) (20.0-40.0) % Bucks % (Auto) (0.0-10.0) % Eos % (Auto) (0.0-4.0) % Baso % (Auto) (0.0-2.0) % Neut # (1.8-7.0) K/uL Lymph # (1.0-4.3) K/uL Bucks # (0.0-0.8) K/uL Eos # (0.0-0.7) K/uL Baso # (0.0-0.2) K/uL Neutrophils % (Manual) (50-75) % Band Neutrophils % (0-2) % Lymphocytes % (Manual) (20-40) % Monocytes % (Manual) (0-10) % Toxic Granulation Platelet Estimate (NORMAL) Polychromasia Hypochromasia (manual) Poikilocytosis (manual Anisocytosis (manual) Macrocytosis (manual) Ovalocytes Ze Cells PT 25.3 H (9.7-12.2) SECONDS INR 2.2 APTT 72 H D (21-34) SECONDS Puncture Site pCO2 (35-45) mm/Hg pO2 (80-100) mm/Hg HCO3 (21-28) mmol/L ABG pH (7.35-7.45) ABG Total CO2 (22-28) mmol/L ABG O2 Saturation (95-98) % ABG Base Excess (-2.0-3.0) mmol/L ABG Hemoglobin (11.7-17.4) g/dL ABG Carboxyhemoglobin (0.5-1.5) % POC ABG HHb (Measured) (0.0-5.0) % ABG Methemoglobin (0.0-3.0) % Justice Test ABG Potassium (3.6-5.2) mmol/L A-a O2 Difference mm/Hg Respiratory Index Hgb O2 Saturation (95.0-98.0) % Sodium (132-148) mmol/l Chloride (98-107) mmol/L Glucose (75-110) mg/dl Lactate (0.7-2.1) mmol/L Liter Flow FiO2 % Crit Value Called To Crit Value Called By Crit Value Read Back Blood Gas Notified Time Potassium (3.6-5.2) mmol/L Carbon Dioxide (22-30) mmol/L Anion Gap (10-20) BUN (9-20) mg/dL Creatinine (0.8-1.5) mg/dL Est GFR ( Amer) Est GFR (Non-Af Amer) POC Glucose (mg/dL) 84 (65-110) mg/dL Random Glucose (75-110) mg/dL Calcium (8.6-10.4) mg/dl Phosphorus (2.5-4.5) mg/dL Magnesium (1.6-2.3) mg/dL Total Bilirubin (0.2-1.3) mg/dL AST (17-59) U/L ALT (21-72) U/L Alkaline Phosphatase (38-126) U/L Ammonia 152 H D (9-33) umol/L Total Protein (6.3-8.3) g/dL Albumin (3.5-5.0) g/dL Globulin (2.2-3.9) gm/dL Albumin/Globulin Ratio (1.0-2.1) Alpha Fetoprotein (0.0-7.5) ng/mL Carcinoembryonic Ag (0-3.0) ng/mL CA 19-9 Antigen (0-37) U/mL Arterial Blood Potassium (3.6-5.2) mmol/L Urine Color (YELLOW) Urine Clarity (Clear) Urine pH (5.0-8.0) Ur Specific [place] (1.003-1.030) Urine Protein (NEGATIVE) mg/dL Urine Glucose (UA) (Normal) mg/dL Urine Ketones (NEGATIVE) mg/dL Urine Blood (NEGATIVE) Urine Nitrate (NEGATIVE) Urine Bilirubin (NEGATIVE) Urine Urobilinogen (0.2-1.0) mg/dL Ur Leukocyte Esterase (Negative) Nyasia/uL Urine WBC (Auto) (0-5) /hpf Urine RBC (Auto) (0-3) /hpf Urine WBC Clumps (Auto) (NONE) /hpf Ur Squamous Epith Cells (0-5) /hpf Calcium Oxalate Crystal (<OCC) /hpf Urine Bacteria (<OCC) Hyaline Casts (0-2) /lpf Ur Random Creatinine mg/dL U Random Total Protein Ur Random Sodium mmol/L Ur Random Urea Nitrogn mg/dL Urine Microalbumin (0.0-16.6) mg/L 06/19/17 06/19/17 06/19/17 Range/Units 06:26 06:22 05:17 WBC 19.3 H (4.8-10.8) K/uL RBC 2.60 L (4.40-5.90) Mil/uL Hgb 9.0 L D (12.0-18.0) g/dL Hct 27.1 L (35.0-51.0) % MCV 104.2 H (80.0-94.0) fL MCH 34.8 H (27.0-31.0) pg MCHC 33.4 (33.0-37.0) g/dL RDW 21.0 H (11.5-14.5) % Plt Count 90 L D (130-400) K/uL MPV 9.5 (7.2-11.7) fL Neut % (Auto) 83.6 H (50.0-75.0) % Lymph % (Auto) 8.9 L (20.0-40.0) % Bucks % (Auto) 7.0 (0.0-10.0) % Eos % (Auto) 0.0 (0.0-4.0) % Baso % (Auto) 0.5 (0.0-2.0) % Neut # 16.1 H (1.8-7.0) K/uL Lymph # 1.7 (1.0-4.3) K/uL Bucks # 1.4 H (0.0-0.8) K/uL Eos # 0.0 (0.0-0.7) K/uL Baso # 0.1 (0.0-0.2) K/uL Neutrophils % (Manual) 86 H (50-75) % Band Neutrophils % 9 H (0-2) % Lymphocytes % (Manual) 4 L (20-40) % Monocytes % (Manual) 1 (0-10) % Toxic Granulation Present Platelet Estimate Decreased L (NORMAL) Polychromasia Slight Hypochromasia (manual) Slight Poikilocytosis (manual Slight Anisocytosis (manual) Moderate Macrocytosis (manual) Slight Ovalocytes Slight Ze Cells Slight PT (9.7-12.2) SECONDS INR APTT (21-34) SECONDS Puncture Site R bra pCO2 31 L (35-45) mm/Hg pO2 77 L (80-100) mm/Hg HCO3 19.7 L (21-28) mmol/L ABG pH 7.37 (7.35-7.45) ABG Total CO2 18.9 L (22-28) mmol/L ABG O2 Saturation 98.2 H (95-98) % ABG Base Excess -6.6 L (-2.0-3.0) mmol/L ABG Hemoglobin 9.1 L (11.7-17.4) g/dL ABG Carboxyhemoglobin 3.2 H (0.5-1.5) % POC ABG HHb (Measured) 1.7 (0.0-5.0) % ABG Methemoglobin 0.9 (0.0-3.0) % Justice Test Na ABG Potassium (3.6-5.2) mmol/L A-a O2 Difference mm/Hg Respiratory Index Hgb O2 Saturation 94.2 L (95.0-98.0) % Sodium 125 L (132-148) mmol/l Chloride 97 L (98-107) mmol/L Glucose (75-110) mg/dl Lactate (0.7-2.1) mmol/L Liter Flow 4.0 FiO2 % Crit Value Called To Crit Value Called By Crit Value Read Back Blood Gas Notified Time Potassium 5.2 (3.6-5.2) mmol/L Carbon Dioxide 18 L (22-30) mmol/L Anion Gap 16 (10-20) BUN 70 H (9-20) mg/dL Creatinine 3.3 H (0.8-1.5) mg/dL Est GFR ( Amer) 24 Est GFR (Non-Af Amer) 20 POC Glucose (mg/dL) (65-110) mg/dL Random Glucose 81 (75-110) mg/dL Calcium 7.5 L (8.6-10.4) mg/dl Phosphorus 6.6 H (2.5-4.5) mg/dL Magnesium 2.0 (1.6-2.3) mg/dL Total Bilirubin 4.5 H (0.2-1.3) mg/dL AST 25 (17-59) U/L ALT 29 (21-72) U/L Alkaline Phosphatase 49 (38-126) U/L Ammonia (9-33) umol/L Total Protein 5.6 L (6.3-8.3) g/dL Albumin 2.1 L (3.5-5.0) g/dL Globulin 3.4 (2.2-3.9) gm/dL Albumin/Globulin Ratio 0.6 L (1.0-2.1) Alpha Fetoprotein (0.0-7.5) ng/mL Carcinoembryonic Ag (0-3.0) ng/mL CA 19-9 Antigen (0-37) U/mL Arterial Blood Potassium (3.6-5.2) mmol/L Urine Color (YELLOW) Urine Clarity (Clear) Urine pH (5.0-8.0) Ur Specific [place] (1.003-1.030) Urine Protein (NEGATIVE) mg/dL Urine Glucose (UA) (Normal) mg/dL Urine Ketones (NEGATIVE) mg/dL Urine Blood (NEGATIVE) Urine Nitrate (NEGATIVE) Urine Bilirubin (NEGATIVE) Urine Urobilinogen (0.2-1.0) mg/dL Ur Leukocyte Esterase (Negative) Nyasia/uL Urine WBC (Auto) (0-5) /hpf Urine RBC (Auto) (0-3) /hpf Urine WBC Clumps (Auto) (NONE) /hpf Ur Squamous Epith Cells (0-5) /hpf Calcium Oxalate Crystal (<OCC) /hpf Urine Bacteria (<OCC) Hyaline Casts (0-2) /lpf Ur Random Creatinine mg/dL U Random Total Protein Ur Random Sodium mmol/L Ur Random Urea Nitrogn mg/dL Urine Microalbumin (0.0-16.6) mg/L 06/18/17 06/18/17 06/18/17 Range/Units 21:13 20:20 17:33 WBC (4.8-10.8) K/uL RBC (4.40-5.90) Mil/uL Hgb (12.0-18.0) g/dL Hct (35.0-51.0) % MCV (80.0-94.0) fL MCH (27.0-31.0) pg MCHC (33.0-37.0) g/dL RDW (11.5-14.5) % Plt Count (130-400) K/uL MPV (7.2-11.7) fL Neut % (Auto) (50.0-75.0) % Lymph % (Auto) (20.0-40.0) % [place] % (Auto) (0.0-10.0) % Eos % (Auto) (0.0-4.0) % Baso % (Auto) (0.0-2.0) % Neut # (1.8-7.0) K/uL Lymph # (1.0-4.3) K/uL [place] # (0.0-0.8) K/uL Eos # (0.0-0.7) K/uL Baso # (0.0-0.2) K/uL Neutrophils % (Manual) (50-75) % Band Neutrophils % (0-2) % Lymphocytes % (Manual) (20-40) % Monocytes % (Manual) (0-10) % Toxic Granulation Platelet Estimate (NORMAL) Polychromasia Hypochromasia (manual) Poikilocytosis (manual Anisocytosis (manual) Macrocytosis (manual) Ovalocytes Ze Cells PT (9.7-12.2) SECONDS INR APTT (21-34) SECONDS Puncture Site Rba pCO2 28 L (35-45) mm/Hg pO2 95 (80-100) mm/Hg HCO3 17.0 L (21-28) mmol/L ABG pH 7.32 L (7.35-7.45) ABG Total CO2 15.3 L (22-28) mmol/L ABG O2 Saturation 99.7 H (95-98) % ABG Base Excess -10.2 L (-2.0-3.0) mmol/L ABG Hemoglobin (11.7-17.4) g/dL ABG Carboxyhemoglobin (0.5-1.5) % POC ABG HHb (Measured) (0.0-5.0) % ABG Methemoglobin (0.0-3.0) % Justice Test Pos ABG Potassium 5.4 H (3.6-5.2) mmol/L A-a O2 Difference 191.0 mm/Hg Respiratory Index 2.0 Hgb O2 Saturation (95.0-98.0) % Sodium 129.0 L (132-148) mmol/l Chloride 102.0 (98-107) mmol/L Glucose 111 H (75-110) mg/dl Lactate 4.2 H* (0.7-2.1) mmol/L Liter Flow 6.0 FiO2 45.0 % Crit Value Called To Dr vázquez Crit Value Called By [facility] Crit Value Read Back Y Blood Gas Notified Time 2026 Potassium (3.6-5.2) mmol/L Carbon Dioxide (22-30) mmol/L Anion Gap (10-20) BUN (9-20) mg/dL Creatinine (0.8-1.5) mg/dL Est GFR ( Amer) Est GFR (Non-Af Amer) POC Glucose (mg/dL) 110 127 H (65-110) mg/dL Random Glucose (75-110) mg/dL Calcium (8.6-10.4) mg/dl Phosphorus (2.5-4.5) mg/dL Magnesium (1.6-2.3) mg/dL Total Bilirubin (0.2-1.3) mg/dL AST (17-59) U/L ALT (21-72) U/L Alkaline Phosphatase (38-126) U/L Ammonia (9-33) umol/L Total Protein (6.3-8.3) g/dL Albumin (3.5-5.0) g/dL Globulin (2.2-3.9) gm/dL Albumin/Globulin Ratio (1.0-2.1) Alpha Fetoprotein (0.0-7.5) ng/mL Carcinoembryonic Ag (0-3.0) ng/mL CA 19-9 Antigen (0-37) U/mL Arterial Blood Potassium 5.4 H (3.6-5.2) mmol/L Urine Color (YELLOW) Urine Clarity (Clear) Urine pH (5.0-8.0) Ur Specific [place] (1.003-1.030) Urine Protein (NEGATIVE) mg/dL Urine Glucose (UA) (Normal) mg/dL Urine Ketones (NEGATIVE) mg/dL Urine Blood (NEGATIVE) Urine Nitrate (NEGATIVE) Urine Bilirubin (NEGATIVE) Urine Urobilinogen (0.2-1.0) mg/dL Ur Leukocyte Esterase (Negative) [place]/uL Urine WBC (Auto) (0-5) /hpf Urine RBC (Auto) (0-3) /hpf Urine WBC Clumps (Auto) (NONE) /hpf Ur Squamous Epith Cells (0-5) /hpf Calcium Oxalate Crystal (<OCC) /hpf Urine Bacteria (<OCC) Hyaline Casts (0-2) /lpf Ur Random Creatinine mg/dL U Random Total Protein Ur Random Sodium mmol/L Ur Random Urea Nitrogn mg/dL Urine Microalbumin (0.0-16.6) mg/L 06/18/17 06/18/17 06/18/17 Range/Units 17:16 16:53 16:50 WBC (4.8-10.8) K/uL RBC (4.40-5.90) Mil/uL Hgb (12.0-18.0) g/dL Hct (35.0-51.0) % MCV (80.0-94.0) fL MCH (27.0-31.0) pg MCHC (33.0-37.0) g/dL RDW (11.5-14.5) % Plt Count (130-400) K/uL MPV (7.2-11.7) fL Neut % (Auto) (50.0-75.0) % Lymph % (Auto) (20.0-40.0) % Bucks % (Auto) (0.0-10.0) % Eos % (Auto) (0.0-4.0) % Baso % (Auto) (0.0-2.0) % Neut # (1.8-7.0) K/uL Lymph # (1.0-4.3) K/uL [place] # (0.0-0.8) K/uL Eos # (0.0-0.7) K/uL Baso # (0.0-0.2) K/uL Neutrophils % (Manual) (50-75) % Band Neutrophils % (0-2) % Lymphocytes % (Manual) (20-40) % Monocytes % (Manual) (0-10) % Toxic Granulation Platelet Estimate (NORMAL) Polychromasia Hypochromasia (manual) Poikilocytosis (manual Anisocytosis (manual) Macrocytosis (manual) Ovalocytes Ze Cells PT (9.7-12.2) SECONDS INR APTT (21-34) SECONDS Puncture Site pCO2 (35-45) mm/Hg pO2 (80-100) mm/Hg HCO3 (21-28) mmol/L ABG pH (7.35-7.45) ABG Total CO2 (22-28) mmol/L ABG O2 Saturation (95-98) % ABG Base Excess (-2.0-3.0) mmol/L ABG Hemoglobin (11.7-17.4) g/dL ABG Carboxyhemoglobin (0.5-1.5) % POC ABG HHb (Measured) (0.0-5.0) % ABG Methemoglobin (0.0-3.0) % Justice Test ABG Potassium (3.6-5.2) mmol/L A-a O2 Difference mm/Hg Respiratory Index Hgb O2 Saturation (95.0-98.0) % Sodium (132-148) mmol/l Chloride (98-107) mmol/L Glucose (75-110) mg/dl Lactate (0.7-2.1) mmol/L Liter Flow FiO2 % Crit Value Called To Crit Value Called By Crit Value Read Back Blood Gas Notified Time Potassium (3.6-5.2) mmol/L Carbon Dioxide (22-30) mmol/L Anion Gap (10-20) BUN (9-20) mg/dL Creatinine (0.8-1.5) mg/dL Est GFR ( Amer) Est GFR (Non-Af Amer) POC Glucose (mg/dL) 60 L 58 L (65-110) mg/dL Random Glucose (75-110) mg/dL Calcium (8.6-10.4) mg/dl Phosphorus (2.5-4.5) mg/dL Magnesium (1.6-2.3) mg/dL Total Bilirubin (0.2-1.3) mg/dL AST (17-59) U/L ALT (21-72) U/L Alkaline Phosphatase (38-126) U/L Ammonia (9-33) umol/L Total Protein (6.3-8.3) g/dL Albumin (3.5-5.0) g/dL Globulin (2.2-3.9) gm/dL Albumin/Globulin Ratio (1.0-2.1) Alpha Fetoprotein (0.0-7.5) ng/mL Carcinoembryonic Ag (0-3.0) ng/mL CA 19-9 Antigen (0-37) U/mL Arterial Blood Potassium (3.6-5.2) mmol/L Urine Color (YELLOW) Urine Clarity (Clear) Urine pH (5.0-8.0) Ur Specific [place] (1.003-1.030) Urine Protein (NEGATIVE) mg/dL Urine Glucose (UA) (Normal) mg/dL Urine Ketones (NEGATIVE) mg/dL Urine Blood (NEGATIVE) Urine Nitrate (NEGATIVE) Urine Bilirubin (NEGATIVE) Urine Urobilinogen (0.2-1.0) mg/dL Ur Leukocyte Esterase (Negative) Nyasia/uL Urine WBC (Auto) (0-5) /hpf Urine RBC (Auto) (0-3) /hpf Urine WBC Clumps (Auto) (NONE) /hpf Ur Squamous Epith Cells (0-5) /hpf Calcium Oxalate Crystal (<OCC) /hpf Urine Bacteria (<OCC) Hyaline Casts (0-2) /lpf Ur Random Creatinine 289.8 mg/dL U Random Total Protein Ur Random Sodium < 5 mmol/L Ur Random Urea Nitrogn 246 mg/dL Urine Microalbumin (0.0-16.6) mg/L Laboratory Results - last 24 hr 06/18/17 06/18/17 06/18/17 16:50 16:53 17:16 WBC RBC Hgb Hct MCV MCH MCHC RDW Plt Count MPV Neut % (Auto) Lymph % (Auto) [place] % (Auto) Eos % (Auto) Baso % (Auto) Neut # Lymph # [place] # Eos # Baso # Neutrophils % (Manual) Band Neutrophils % Lymphocytes % (Manual) Monocytes % (Manual) Toxic Granulation Platelet Estimate Polychromasia Hypochromasia (manual) Poikilocytosis (manual Anisocytosis (manual) Macrocytosis (manual) Ovalocytes [place] Cells PT INR APTT Puncture Site pCO2 pO2 HCO3 ABG pH ABG Total CO2 ABG O2 Saturation ABG Base Excess ABG Hemoglobin ABG Carboxyhemoglobin POC ABG HHb (Measured) ABG Methemoglobin Justice Test ABG Potassium A-a O2 Difference Respiratory Index Hgb O2 Saturation Sodium Chloride Glucose Lactate Liter Flow FiO2 Crit Value Called To Crit Value Called By Crit Value Read Back Blood Gas Notified Time Potassium Carbon Dioxide Anion Gap BUN Creatinine Est GFR ( Amer) Est GFR (Non-Af Amer) POC Glucose (mg/dL) 58 L 60 L Random Glucose Calcium Phosphorus Magnesium Total Bilirubin AST ALT Alkaline Phosphatase Ammonia Total Protein Albumin Globulin Albumin/Globulin Ratio Alpha Fetoprotein Carcinoembryonic Ag CA 19-9 Antigen Arterial Blood Potassium Urine Color Urine Clarity Urine pH Ur Specific [place] Urine Protein Urine Glucose (UA) Urine Ketones Urine Blood Urine Nitrate Urine Bilirubin Urine Urobilinogen Ur Leukocyte Esterase Urine WBC (Auto) Urine RBC (Auto) Urine WBC Clumps (Auto) Ur Squamous Epith Cells Calcium Oxalate Crystal Urine Bacteria Hyaline Casts Ur Random Creatinine 289.8 U Random Total Protein Ur Random Sodium < 5 Ur Random Urea Nitrogn 246 Urine Microalbumin 06/18/17 06/18/17 06/18/17 17:33 20:20 21:13 WBC RBC Hgb Hct MCV MCH MCHC RDW Plt Count MPV Neut % (Auto) Lymph % (Auto) [place] % (Auto) Eos % (Auto) Baso % (Auto) Neut # Lymph # [place] # Eos # Baso # Neutrophils % (Manual) Band Neutrophils % Lymphocytes % (Manual) Monocytes % (Manual) Toxic Granulation Platelet Estimate Polychromasia Hypochromasia (manual) Poikilocytosis (manual Anisocytosis (manual) Macrocytosis (manual) Ovalocytes Ze Cells PT INR APTT Puncture Site Rba pCO2 28 L pO2 95 HCO3 17.0 L ABG pH 7.32 L ABG Total CO2 15.3 L ABG O2 Saturation 99.7 H ABG Base Excess -10.2 L ABG Hemoglobin ABG Carboxyhemoglobin POC ABG HHb (Measured) ABG Methemoglobin Justice Test Pos ABG Potassium 5.4 H A-a O2 Difference 191.0 Respiratory Index 2.0 Hgb O2 Saturation Sodium 129.0 L Chloride 102.0 Glucose 111 H Lactate 4.2 H* Liter Flow 6.0 FiO2 45.0 Crit Value Called To Dr vázquez Crit Value Called By Natanael mclaughlin Crit Value Read Back Y Blood Gas Notified Time 2026 Potassium Carbon Dioxide Anion Gap BUN Creatinine Est GFR ( Amer) Est GFR (Non-Af Amer) POC Glucose (mg/dL) 127 H 110 Random Glucose Calcium Phosphorus Magnesium Total Bilirubin AST ALT Alkaline Phosphatase Ammonia Total Protein Albumin Globulin Albumin/Globulin Ratio Alpha Fetoprotein Carcinoembryonic Ag CA 19-9 Antigen Arterial Blood Potassium 5.4 H Urine Color Urine Clarity Urine pH Ur Specific [place] Urine Protein Urine Glucose (UA) Urine Ketones Urine Blood Urine Nitrate Urine Bilirubin Urine Urobilinogen Ur Leukocyte Esterase Urine WBC (Auto) Urine RBC (Auto) Urine WBC Clumps (Auto) Ur Squamous Epith Cells Calcium Oxalate Crystal Urine Bacteria Hyaline Casts Ur Random Creatinine U Random Total Protein Ur Random Sodium Ur Random Urea Nitrogn Urine Microalbumin 06/19/17 06/19/17 06/19/17 05:17 06:22 06:26 WBC 19.3 H RBC 2.60 L Hgb 9.0 L D Hct 27.1 L MCV 104.2 H MCH 34.8 H MCHC 33.4 RDW 21.0 H Plt Count 90 L D MPV 9.5 Neut % (Auto) 83.6 H Lymph % (Auto) 8.9 L [place] % (Auto) 7.0 Eos % (Auto) 0.0 Baso % (Auto) 0.5 Neut # 16.1 H Lymph # 1.7 Bucks # 1.4 H Eos # 0.0 Baso # 0.1 Neutrophils % (Manual) 86 H Band Neutrophils % 9 H Lymphocytes % (Manual) 4 L Monocytes % (Manual) 1 Toxic Granulation Present Platelet Estimate Decreased L Polychromasia Slight Hypochromasia (manual) Slight Poikilocytosis (manual Slight Anisocytosis (manual) Moderate Macrocytosis (manual) Slight Ovalocytes Slight Ze Cells Slight PT INR APTT Puncture Site R bra pCO2 31 L pO2 77 L HCO3 19.7 L ABG pH 7.37 ABG Total CO2 18.9 L ABG O2 Saturation 98.2 H ABG Base Excess -6.6 L ABG Hemoglobin 9.1 L ABG Carboxyhemoglobin 3.2 H POC ABG HHb (Measured) 1.7 ABG Methemoglobin 0.9 Justice Test Na ABG Potassium A-a O2 Difference Respiratory Index Hgb O2 Saturation 94.2 L Sodium 125 L Chloride 97 L Glucose Lactate Liter Flow 4.0 FiO2 Crit Value Called To Crit Value Called By Crit Value Read Back Blood Gas Notified Time Potassium 5.2 Carbon Dioxide 18 L Anion Gap 16 BUN 70 H Creatinine 3.3 H Est GFR ( Amer) 24 Est GFR (Non-Af Amer) 20 POC Glucose (mg/dL) Random Glucose 81 Calcium 7.5 L Phosphorus 6.6 H Magnesium 2.0 Total Bilirubin 4.5 H AST 25 ALT 29 Alkaline Phosphatase 49 Ammonia Total Protein 5.6 L Albumin 2.1 L Globulin 3.4 Albumin/Globulin Ratio 0.6 L Alpha Fetoprotein Carcinoembryonic Ag CA 19-9 Antigen Arterial Blood Potassium Urine Color Urine Clarity Urine pH Ur Specific [place] Urine Protein Urine Glucose (UA) Urine Ketones Urine Blood Urine Nitrate Urine Bilirubin Urine Urobilinogen Ur Leukocyte Esterase Urine WBC (Auto) Urine RBC (Auto) Urine WBC Clumps (Auto) Ur Squamous Epith Cells Calcium Oxalate Crystal Urine Bacteria Hyaline Casts Ur Random Creatinine U Random Total Protein Ur Random Sodium Ur Random Urea Nitrogn Urine Microalbumin 06/19/17 06/19/17 06/19/17 06:26 06:30 07:25 WBC RBC Hgb Hct MCV MCH MCHC RDW Plt Count MPV Neut % (Auto) Lymph % (Auto) [place] % (Auto) Eos % (Auto) Baso % (Auto) Neut # Lymph # [place] # Eos # Baso # Neutrophils % (Manual) Band Neutrophils % Lymphocytes % (Manual) Monocytes % (Manual) Toxic Granulation Platelet Estimate Polychromasia Hypochromasia (manual) Poikilocytosis (manual Anisocytosis (manual) Macrocytosis (manual) Ovalocytes Ze Cells PT 25.3 H INR 2.2 APTT 72 H D Puncture Site pCO2 pO2 HCO3 ABG pH ABG Total CO2 ABG O2 Saturation ABG Base Excess ABG Hemoglobin ABG Carboxyhemoglobin POC ABG HHb (Measured) ABG Methemoglobin Justice Test ABG Potassium A-a O2 Difference Respiratory Index Hgb O2 Saturation Sodium Chloride Glucose Lactate Liter Flow FiO2 Crit Value Called To Crit Value Called By Crit Value Read Back Blood Gas Notified Time Potassium Carbon Dioxide Anion Gap BUN Creatinine Est GFR ( Amer) Est GFR (Non-Af Amer) POC Glucose (mg/dL) 84 Random Glucose Calcium Phosphorus Magnesium Total Bilirubin AST ALT Alkaline Phosphatase Ammonia 152 H D Total Protein Albumin Globulin Albumin/Globulin Ratio Alpha Fetoprotein Carcinoembryonic Ag CA 19-9 Antigen Arterial Blood Potassium Urine Color Urine Clarity Urine pH Ur Specific [place] Urine Protein Urine Glucose (UA) Urine Ketones Urine Blood Urine Nitrate Urine Bilirubin Urine Urobilinogen Ur Leukocyte Esterase Urine WBC (Auto) Urine RBC (Auto) Urine WBC Clumps (Auto) Ur Squamous Epith Cells Calcium Oxalate Crystal Urine Bacteria Hyaline Casts Ur Random Creatinine U Random Total Protein Ur Random Sodium Ur Random Urea Nitrogn Urine Microalbumin 06/19/17 06/19/17 06/19/17 12:32 12:36 12:36 WBC RBC Hgb Hct MCV MCH MCHC RDW Plt Count MPV Neut % (Auto) Lymph % (Auto) [place] % (Auto) Eos % (Auto) Baso % (Auto) Neut # Lymph # [place] # Eos # Baso # Neutrophils % (Manual) Band Neutrophils % Lymphocytes % (Manual) Monocytes % (Manual) Toxic Granulation Platelet Estimate Polychromasia Hypochromasia (manual) Poikilocytosis (manual Anisocytosis (manual) Macrocytosis (manual) Ovalocytes Ze Cells PT INR APTT Puncture Site pCO2 pO2 HCO3 ABG pH ABG Total CO2 ABG O2 Saturation ABG Base Excess ABG Hemoglobin ABG Carboxyhemoglobin POC ABG HHb (Measured) ABG Methemoglobin Justice Test ABG Potassium A-a O2 Difference Respiratory Index Hgb O2 Saturation Sodium Chloride Glucose Lactate Liter Flow FiO2 Crit Value Called To Crit Value Called By Crit Value Read Back Blood Gas Notified Time Potassium Carbon Dioxide Anion Gap BUN Creatinine Est GFR ( Amer) Est GFR (Non-Af Amer) POC Glucose (mg/dL) 95 Random Glucose Calcium Phosphorus Magnesium Total Bilirubin AST ALT Alkaline Phosphatase Ammonia Total Protein Albumin Globulin Albumin/Globulin Ratio Alpha Fetoprotein 50.4 H Carcinoembryonic Ag 2.2 CA 19-9 Antigen 16.9 Arterial Blood Potassium Urine Color Urine Clarity Urine pH Ur Specific [place] Urine Protein Urine Glucose (UA) Urine Ketones Urine Blood Urine Nitrate Urine Bilirubin Urine Urobilinogen Ur Leukocyte Esterase Urine WBC (Auto) Urine RBC (Auto) Urine WBC Clumps (Auto) Ur Squamous Epith Cells Calcium Oxalate Crystal Urine Bacteria Hyaline Casts Ur Random Creatinine U Random Total Protein Ur Random Sodium Ur Random Urea Nitrogn Urine Microalbumin 06/19/17 06/19/17 06/19/17 12:36 15:47 15:47 WBC RBC Hgb Hct MCV MCH MCHC RDW Plt Count MPV Neut % (Auto) Lymph % (Auto) [place] % (Auto) Eos % (Auto) Baso % (Auto) Neut # Lymph # [place] # Eos # Baso # Neutrophils % (Manual) Band Neutrophils % Lymphocytes % (Manual) Monocytes % (Manual) Toxic Granulation Platelet Estimate Polychromasia Hypochromasia (manual) Poikilocytosis (manual Anisocytosis (manual) Macrocytosis (manual) Ovalocytes Ze Cells PT INR APTT Puncture Site pCO2 pO2 HCO3 ABG pH ABG Total CO2 ABG O2 Saturation ABG Base Excess ABG Hemoglobin ABG Carboxyhemoglobin POC ABG HHb (Measured) ABG Methemoglobin Justice Test ABG Potassium A-a O2 Difference Respiratory Index Hgb O2 Saturation Sodium Chloride Glucose Lactate Liter Flow FiO2 Crit Value Called To Crit Value Called By Crit Value Read Back Blood Gas Notified Time Potassium Carbon Dioxide Anion Gap BUN Creatinine Est GFR ( Amer) Est GFR (Non-Af Amer) POC Glucose (mg/dL) Random Glucose Calcium Phosphorus Magnesium Total Bilirubin AST ALT Alkaline Phosphatase Ammonia Total Protein Albumin Globulin Albumin/Globulin Ratio Alpha Fetoprotein Carcinoembryonic Ag CA 19-9 Antigen Arterial Blood Potassium Urine Color Yellow Urine Clarity Hazy Urine pH 5.0 Ur Specific [place] 1.020 Urine Protein 1+ H Urine Glucose (UA) Normal Urine Ketones Negative Urine Blood 3+ H Urine Nitrate Negative Urine Bilirubin Negative Urine Urobilinogen Normal Ur Leukocyte Esterase 3+ H Urine WBC (Auto) 49 H Urine RBC (Auto) 29 H Urine WBC Clumps (Auto) Rare H Ur Squamous Epith Cells 2 Calcium Oxalate Crystal Occ H Urine Bacteria Rare Hyaline Casts >20 H Ur Random Creatinine U Random Total Protein Ur Random Sodium < 5 Ur Random Urea Nitrogn Urine Microalbumin 105.1 H 06/19/17 06/19/17 06/19/17 15:47 16:00 16:06 WBC RBC Hgb Hct MCV MCH MCHC RDW Plt Count MPV Neut % (Auto) Lymph % (Auto) [place] % (Auto) Eos % (Auto) Baso % (Auto) Neut # Lymph # [place] # Eos # Baso # Neutrophils % (Manual) Band Neutrophils % Lymphocytes % (Manual) Monocytes % (Manual) Toxic Granulation Platelet Estimate Polychromasia Hypochromasia (manual) Poikilocytosis (manual Anisocytosis (manual) Macrocytosis (manual) Ovalocytes Ze Cells PT INR APTT Puncture Site pCO2 pO2 HCO3 ABG pH ABG Total CO2 ABG O2 Saturation ABG Base Excess ABG Hemoglobin ABG Carboxyhemoglobin POC ABG HHb (Measured) ABG Methemoglobin Justice Test ABG Potassium A-a O2 Difference Respiratory Index Hgb O2 Saturation Sodium Chloride Glucose Lactate Liter Flow FiO2 Crit Value Called To Crit Value Called By Crit Value Read Back Blood Gas Notified Time Potassium Carbon Dioxide Anion Gap BUN Creatinine Est GFR ( Amer) Est GFR (Non-Af Amer) POC Glucose (mg/dL) 109 Random Glucose Calcium Phosphorus Magnesium Total Bilirubin AST ALT Alkaline Phosphatase Ammonia Total Protein Albumin Globulin Albumin/Globulin Ratio Alpha Fetoprotein Carcinoembryonic Ag CA 19-9 Antigen Arterial Blood Potassium Urine Color Urine Clarity Urine pH Ur Specific [place] Urine Protein Urine Glucose (UA) Urine Ketones Urine Blood Urine Nitrate Urine Bilirubin Urine Urobilinogen Ur Leukocyte Esterase Urine WBC (Auto) Urine RBC (Auto) Urine WBC Clumps (Auto) Ur Squamous Epith Cells Calcium Oxalate Crystal Urine Bacteria Hyaline Casts Ur Random Creatinine 193.0 U Random Total Protein Cancelled 31.0 H Ur Random Sodium Ur Random Urea Nitrogn Urine Microalbumin Fingerstick Blood Sugar Results: 110 Critical Care Progress Note - Nutrition Nutrition: Nutrition Category Date Time Status Renal Diet [DIET] Diets 06/18/17 Dinner Active
[2017-06-19] MEDS: Saccharomyces Boulardi 250 mg Cap PO SCH (17:28)
[2017-06-19 18:44] LABS: FIBRINOGEN 161 mg/dL (200-400)
[2017-06-20] MEDS: Piperacill/Tazo 2.25gm in Dex 2.25 GM/50 ML BAG IVPB SCH ×4 (01:20→21:05)
[2017-06-20] MEDS: Albumin Human 25% (12.5 gm/50 ml) IV SCH ×5 (02:20→20:46)
--- NOTE | 2017-06-20 04:07 | CON ---
DATE: 06/19/2017 LOCATION: ICU, bed 15. REASON FOR CONSULTATION: I was called for a GI consultation. The patient is seen and fully examined on 06/19/2017 as requested by the admitting medical staff. The entire chart is reviewed, including, but not limited to most recent lab and radiology study results, current and previous medication lists, current and previous medical events, and allergies to medication list, as well as all the available current and the previous medical records. Case was discussed with the staff in the Intensive Care Unit. HISTORY OF PRESENT ILLNESS: This is a 57-year-old male, who was admitted to the hospital through the emergency room from assisted due to a fall with a period of mild semi-confusion and slight disorientation, but no reported active bleeding, no significant complaint of shortness of breath, chest pain, palpitation, chills, or fever. PAST MEDICAL HISTORY: Including, but not limited to: 1. Alcoholism. 2. Hypertension. 3. Hyperlipidemia. 4. Severe anxiety syndrome. 5. Reported anemia before. 6. Blood transfusion in the past. 7. Status post abdominal paracentesis before. SOCIAL HISTORY: Positive for alcoholism and substance abuse. FAMILY HISTORY: Unknown. CURRENT MEDICATIONS: Medication list was reviewed post admission. ALLERGY TO MEDICATIONS: UNCLEAR. HOSPITAL COURSE: After being admitted to the hospital, the patient was found to have leukocytosis of 28.3 with hemoglobin of 11.7, abnormal hematocrit with decreased blood glucose level to 39, increased BUN to 62, creatinine 3.3 with a low CO2 content of 12, indicative of severe metabolic acidosis with low sodium of 123, and increased potassium of 6.0 with a reportedly elevated ammonia level. A chest x-ray done, report is seen, as well as CAT scan of the chest and the abdomen with reported liver cirrhosis with evidence of portal hypertension and splenomegaly. Gastric and esophageal pareses were reported with ascites with large pleural effusion. PHYSICAL EXAMINATION GENERAL: A 57-year-old male, who appears to be somewhat awake and alert, somewhat restless. VITAL SIGNS: Afebrile, with a pulse of 70, respiratory rate 20-22, and blood pressure 104/48. HEENT: Showed pale, dry oral mucous membrane with slightly icteric sclerae. LYMPH NODES: No lymphadenitis or lymphadenopathy. LUNGS: Scattered crepitation with decreased air entry bilaterally with few rales. HEART: Positive S1 and S2. ABDOMEN: Soft with mild distention with a large amount of ascites. Bowel sounds are hypoactive. Spleen is palpable. No other mass or organomegaly. RECTAL: The patient refused. EXTREMITIES: Lower extremities with edematous changes. No clubbing or cyanosis. NEUROLOGIC: No reported new neurological deficits - focal, sensory, or motor. IMPRESSION: 1. Alcoholism with alcoholic liver disease. 2. Liver cirrhosis secondary to above with evidence of portal hypertension, hypersplenism, large amount of ascites with pleural effusion. 3. Known history of hyperlipidemia. 4. Electrolyte imbalance with severe metabolic acidosis. 5. Anemia, rule out gastrointestinal blood loss versus anemia secondary to chronic disease. 6. Known history of hypertension, osteoarthritis, severe anxiety syndrome. SUGGESTIONS: 1. Continue current management. 2. Thoracocentesis. 3. CAT scan-guided abdominal paracentesis. 4. Ammonia level to be repeated. 5. Add neomycin p.o. to correct any underlying electrolyte imbalance. 6. No aggressive gastrointestinal interventions in the meantime until the patient is more stable clinically, and cancer markers including the CEA, alpha fetoprotein, and CA19-9 to be kept in mind. 7. We will follow up closely with you. Thank you for letting me participate in your patient's case management. Yael Archibald MD
[2017-06-20 07:22] LABS: EOS % 0.3 % (0.0-4.0); MEAN CORPUSCULAR HGB CONC 33.8 g/dL (33.0-37.0); MONO # 1.2 K/uL (0.0-0.8); RED CELL DISTRIBUTION WIDTH 20.5 % (11.5-14.5); WHITE BLOOD COUNT 16.5 K/uL (4.8-10.8)
[2017-06-20 07:30] LABS: BASO # 0.1 K/uL (0.0-0.2); BASO % 0.3 % (0.0-2.0); HEMATOCRIT 26.6 % (35.0-51.0); LYMPH # 1.1 K/uL (1.0-4.3); LYMPH % 6.6 % (20.0-40.0); MEAN CELL VOLUME 104.3 fL (80.0-94.0); MEAN CORPUSCULAR HEMOGLOBIN 35.3 pg (27.0-31.0); MEAN PLATELET VOLUME 9.4 fL (7.2-11.7); MONO % 7.5 % (0.0-10.0); NRBC % 0.6 % (0.0-2.0)
[2017-06-20 07:35] LABS: PLATELET COUNT 65 K/uL (130-400)
[2017-06-20 07:41] LABS: ALB/GLOB RATIO 0.7 (1.0-2.1); BILIRUBIN,TOTAL 5.1 mg/dL (0.2-1.3); CALCIUM 7.6 mg/dl (8.6-10.4); MAGNESIUM 2.1 mg/dL (1.6-2.3); PHOSPHOROUS 6.1 mg/dL (2.5-4.5); TOTAL PROTEIN 5.6 g/dL (6.3-8.3)
[2017-06-20 07:42] LABS: INR 2.2
[2017-06-20 08:34] LABS: EOSINOPHIL 1 % (0-4); NEUTROPHIL 84 % (50-75); TOTAL CELLS COUNTED 100
--- NOTE | 2017-06-20 09:13 | CP.PCM.PN ---
Subjective - Date & Time of Evaluation Date of Evaluation: 06/20/17 Time of Evaluation: 09:05 - Subjective Subjective: Nephrology progress note for Dr Mao's service. Patient appears alert and awake, demanding to be discharged home, patient is aware that he is in [facility]. Denies chest pain, admits to shortness of breath and abdominal pain. Admits to feeling cold, denies fever, denies nausea, or vomiting. Objective - Vital Signs/Intake and Output Vital Signs (last 24 hours): Temp Pulse Resp BP Pulse Ox 97.6 F 77 20 92/35 L 98 06/20/17 04:00 06/20/17 07:22 06/20/17 07:22 06/20/17 07:22 06/20/17 07:22 Intake and Output: 06/20/17 06/20/17 06:59 18:59 Intake Total 780.0 Output Total 200 Balance 580.0 - Medications Medications: Current Medications Ferrous Sulfate (Feosol) 325 mg PO BID [facility] Last Admin: 06/19/17 17:28 Dose: 325 mg Piperacillin Sod/Tazobactam Sod (Zosyn 2.25 Gm Iv Premix) 2.25 gm in 50 mls @ 100 mls/hr IVPB Q6H [facility] Last Admin: 06/20/17 08:13 Dose: 100 mls/hr Sodium Bicarbonate 150 meq/ (Dextrose) 1,000 mls @ 45 mls/hr IV .[id number] [facility] Last Admin: 06/19/17 17:00 Dose: 45 mls/hr Lactulose (Enulose) 20 gm PO Q6H [facility] Last Admin: 06/20/17 02:00 Dose: Not Given Levetiracetam (Keppra) 500 mg PO BID [facility] Last Admin: 06/19/17 17:28 Dose: 500 mg Midodrine (Proamatine) 7.5 mg PO Q8H [facility] Last Admin: 06/20/17 08:12 Dose: 7.5 mg Neomycin Sulfate (Neomycin Tab) 500 mg PO Q6 [facility] Last Admin: 06/20/17 05:01 Dose: 500 mg Nicotine (Nicoderm Cq) 1 patch TD DAILY [facility] Last Admin: 06/19/17 09:28 Dose: 1 patch Octreotide Acetate (Sandostatin) 100 mcg SC Q8H [facility] Last Admin: 06/20/17 08:13 Dose: 100 mcg Pantoprazole Sodium (Protonix Ec Tab) 40 mg PO DAILY [facility] Last Admin: 06/19/17 09:27 Dose: 40 mg Propranolol HCl (Inderal) 10 mg PO TID [facility] Last Admin: 06/19/17 14:00 Dose: Not Given Rifaximin (Xifaxan) 550 mg PO BID [facility] Last Admin: 06/19/17 17:28 Dose: 550 mg Saccharomyces Boulardii (Florastor) 250 mg PO BID [facility] Last Admin: 06/19/17 17:28 Dose: 250 mg - Labs Labs: 06/20/17 07:15 06/20/17 07:15 PT 25.0 SECONDS (9.7-12.2) H 06/20/17 07:15 INR 2.2 06/20/17 07:15 APTT 71 SECONDS (21-34) H 06/20/17 07:15 - Constitutional Appears: No Acute Distress, Older Than Stated Age, Confused, Cachectic, Chronically Ill - Head Exam Head Exam: ATRAUMATIC, NORMAL INSPECTION, NORMOCEPHALIC - Eye Exam Eye Exam: EOMI, Scleral icterus - ENT Exam ENT Exam: Mucous Membranes Dry - Neck Exam Neck Exam: Normal Inspection. absent: Lymphadenopathy - Respiratory Exam Respiratory Exam: Prolonged Expiratory Phase, Rales (right lower lobe.). absent : Accessory Muscle Use, Rhonchi, Wheezes, Respiratory Distress, Stridor - Cardiovascular Exam Cardiovascular Exam: REGULAR RHYTHM, +S1, +S2. absent: JVD, Murmur - GI/Abdominal Exam GI & Abdominal Exam: Distended, Firm, Tenderness (ruq), Normal Bowel Sounds. absent: Guarding, Rigid Additional comments: + fluid wave. - Extremities Exam Extremities Exam: Normal Inspection. absent: Pedal Edema, Tenderness - Back Exam Back Exam: NORMAL INSPECTION - Neurological Exam Neurological Exam: Alert, Awake - Psychiatric Exam Psychiatric exam: Depressed - Skin Skin Exam: Dry, Rash Additional comments: cold and clumpy. + spooning of the fingers. + Jaundice Assessment and Plan (1) Acute renal failure Assessment & Plan: MICHELINE on CKD likely secondary to underlying glomerulonephritis- patient was seen by Dr Mao on prior admissions, renal function was concerning for glomerulonephritis due to hematuria, complement consumption, dysmorphic RBC, in the setting of hep C, and possibly cyroglobulins. Patient at the time refused renal biopsy. In any way, patient won't be able to undergo renal biopsy at this time due to coagulopathy, and since treatment will be fci immunosupression , patient will not be able to tolerate this until clinically stable. Other differentials include, hepatorenal syndrome, giving low urine sodium, and worsening in renal function in the setting of decompensated liver cirrhosis. Patient was hypotensive on presentation, didn't get central line because patient was refusing the procedure. However BP improving with midodrine, will increase it to 10 mg q8hr, will also continue with octreotide 100 mcg sc q8. Will also continue with albumin 25% q4hr for the next 24 hours. in Renal function continues to worsen with worsening in urine output, 24 hours urine output of 200 cc/hr. ATN due to sepsis was also on the differentials, although less likely. Status: Acute (2) Glomerulonephritis Assessment & Plan: See above. Status: Acute (3) Hypotension Assessment & Plan: SBP stable in the 90-100, increased midodrine to 10 mg q8hr Status: Acute (4) Hepatic encephalopathy Assessment & Plan: Mental status improved with improved in ammonium level. Continue with lactulose titrated to 2-3 bowel movement daily. Continue with rifaxamin for hepatic encephalopathy. Status: Acute (5) Hyponatremia Assessment & Plan: Likely due to cirrhosis. Continue with fluid restriction. Status: Acute (6) Metabolic acidosis Assessment & Plan: Resolving. will discontinue bicarb drip. Status: Acute (7) Pleural effusion associated with hepatic disorder Assessment & Plan: S/P thoracentesis with removal of 2.5 litters of fluid. Status: Acute (8) Sepsis Assessment & Plan: No clear source, rule out SBP. Pending paracentesis. Cultures so far with no growth. Leukocytosis trending down On zosyn. Was started on vanco this AM. Status: Acute (9) Altered mental state Assessment & Plan: Due to hepatic encephalopathy. Mentation improved. Patient also has h/o meningioma, recent CT with vasogenic edema and minimal midline shift. Patient is on keppra for seizure prophylaxis. Status: Acute (10) Anemia Assessment & Plan: Likely due to varices and CKD. HGB hanging around 9, will continue to monitor. Continue with po iron bid. Status: Acute (11) Coagulopathy Assessment & Plan: Due decompensated liver cirrhosis. Status: Acute (12) Hyperkalemia Assessment & Plan: Resolved, will continue to monitor. Status: Acute (13) Liver cirrhosis Assessment & Plan: Decompensated liver cirrhosis with MELD score of 36 point With ascites pending paracentesis. Status: Acute (14) Thrombocytopenia Assessment & Plan: With marked drop in plt, today 65. likely due to spleen sequestration. Status: Acute
[2017-06-20] MEDS: Pantoprazole 40 mg EC Tab PO SCH (10:44)
[2017-06-20] MEDS: Saccharomyces Boulardi 250 mg Cap PO SCH ×2 (10:44→18:00)
--- NOTE | 2017-06-20 11:51 | CP.CCUPN ---
<Maida Melara - Last Filed: 06/20/17 11:56> CCU Subjective - Physician Review Subjective (Free Text): 06/20/17 11:56 Patient seen and examined at bedside. Patient resting comfortably in bed. He is awake but intermittently falls asleep and answers only some of my questions. Patient complaining of some abdominal pain and felling cold but otherwise denies chest pain, SOB, Palpitations, n/v. 06/20/17 11:59 CCU Objective - Vital Signs / Intake & Output Vital Signs (Last 4 hours): Vital Signs Temp 06/20/17 08:00 97.8 F Intake and Output (Last 8hrs): Intake & Output 06/19/17 06/20/17 06/20/17 22:59 06:59 14:59 Intake Total 512.5 447.5 50 Output Total 200 Balance 512.5 247.5 50 Weight 152 lb 4.8 oz Intake: Intake, IV Amount 392.5 207.5 Left Wrist 392.5 207.5 Oral 120 240 50 Output: Urine 200 Urethral (Bosch) 200 Other: # Voids Urethral (Bosch) 100 # Bowel Movements 1 0 - Physical Exam Physical Exam Limitations: Positive for: Other (confused ) Head: Positive for: Atraumatic, Normocephalic Pupils: Positive for: PERRL Conjunctiva: Positive for: Normal Mouth: Positive for: Dry Respiratory/Chest: Positive for: Clear to Auscultation, Good Air Exchange. Negative for: Respiratory Distress, Accessory Muscle Use Cardiovascular: Positive for: Regular Rate and Rhythm, Normal S1, S2 Abdomen: Positive for: Tenderness (mild generalized TTP), Distention (ascites ) , Normal Bowel Sounds. Negative for: Peritoneal Signs Upper Extremity: Positive for: Normal Inspection Lower Extremity: Positive for: Normal Inspection Neurological: Positive for: GCS=15 Psychiatric: Positive for: Alert, Oriented x 3 (oriented to year not day ) - Medications Active Medications: Active Medications Generic Name Dose Route Start Last Admin Trade Name Freq PRN Reason Stop Dose Admin Ferrous Sulfate 325 mg 06/19/17 18:00 06/20/17 10:44 Feosol PO 325 mg BID KARL Administration Piperacillin Sod/Tazobactam Sod 2.25 gm in 50 mls @ 100 mls/hr 06/18/17 20:00 06/20/17 08:13 Zosyn 2.25 Gm Iv Premix IVPB 100 mls/hr Q6H KARL Administration Sodium Bicarbonate 150 meq/ 1,000 mls @ 45 mls/hr 06/18/17 18:30 06/19/17 17: 00 Dextrose IV 45 mls/hr .[id number] KARL Administration Lactulose 20 gm 06/18/17 15:00 06/20/17 09:00 Enulose PO Not Given Q6H KARL Levetiracetam 500 mg 06/18/17 18:00 06/20/17 10:44 Keppra PO 500 mg BID KARL Administration Midodrine 7.5 mg 06/19/17 15:30 06/20/17 08:12 Proamatine PO 7.5 mg Q8H KARL Administration Neomycin Sulfate 500 mg 06/19/17 12:00 06/20/17 11:00 Neomycin Tab PO 500 mg Q6 KARL Administration Nicotine 1 patch 06/19/17 10:00 06/20/17 10:44 Nicoderm Cq TD 1 patch DAILY KARL Administration Octreotide Acetate 100 mcg 06/19/17 15:30 06/20/17 08:13 Sandostatin SC 100 mcg Q8H KARL Administration Pantoprazole Sodium 40 mg 06/19/17 10:00 06/20/17 10:44 Protonix Ec Tab PO 40 mg DAILY KARL Administration Propranolol HCl 10 mg 06/18/17 18:00 06/19/17 14:00 Inderal PO Not Given TID KARL Rifaximin 550 mg 06/19/17 18:00 06/20/17 10:44 Xifaxan PO 550 mg BID KARL Administration Saccharomyces Boulardii 250 mg 06/19/17 18:00 06/20/17 10:44 Florastor PO 250 mg BID KARL Administration - Patient Studies Lab Studies: Microbiology Studies 06/18/17 14:15 Gram Stain - Final Pleural Fluid Body Fluid Culture - Preliminary NO GROWTH AFTER 2 DAYS 06/18/17 Unknown Urine Culture - Final Urine,Bosch No Growth (<1,000 CFU/ML) 06/18/17 Unknown MRSA Culture (Admit) - Final Naris MRSA NOT DETECTED Lab Studies 06/20/17 06/20/17 06/20/17 Range/Units 11:17 07:15 07:15 WBC (4.8-10.8) K/uL RBC (4.40-5.90) Mil/uL Hgb (12.0-18.0) g/dL Hct (35.0-51.0) % MCV (80.0-94.0) fL MCH (27.0-31.0) pg MCHC (33.0-37.0) g/dL RDW (11.5-14.5) % Plt Count (130-400) K/uL MPV (7.2-11.7) fL Neut % (Auto) (50.0-75.0) % Lymph % (Auto) (20.0-40.0) % [place] % (Auto) (0.0-10.0) % Eos % (Auto) (0.0-4.0) % Baso % (Auto) (0.0-2.0) % Neut # (1.8-7.0) K/uL Lymph # (1.0-4.3) K/uL [place] # (0.0-0.8) K/uL Eos # (0.0-0.7) K/uL Baso # (0.0-0.2) K/uL Neutrophils % (Manual) (50-75) % Band Neutrophils % (0-2) % Lymphocytes % (Manual) (20-40) % Monocytes % (Manual) (0-10) % Eosinophils % (Manual) (0-4) % Platelet Estimate (NORMAL) Polychromasia Hypochromasia (manual) Poikilocytosis (manual Anisocytosis (manual) Microcytosis (manual) Macrocytosis (manual) Target Cells Ovalocytes [place] Cells PT 25.0 H (9.7-12.2) SECONDS INR 2.2 APTT 71 H (21-34) SECONDS Fibrinogen (200-400) mg/dL D-Dimer, Quantitative (0-243) ng/mlDDU Sodium (132-148) mmol/L Potassium (3.6-5.2) mmol/L Chloride (98-107) mmol/L Carbon Dioxide (22-30) mmol/L Anion Gap (10-20) BUN (9-20) mg/dL Creatinine (0.8-1.5) mg/dL Est GFR ( Amer) Est GFR (Non-Af Amer) POC Glucose (mg/dL) 97 (65-110) mg/dL Random Glucose (75-110) mg/dL Lactic Acid (0.7-2.1) mmol/L Calcium (8.6-10.4) mg/dl Phosphorus (2.5-4.5) mg/dL Magnesium (1.6-2.3) mg/dL Total Bilirubin (0.2-1.3) mg/dL AST (17-59) U/L ALT (21-72) U/L Alkaline Phosphatase (38-126) U/L Ammonia 21 D (9-33) umol/L Total Protein (6.3-8.3) g/dL Albumin (3.5-5.0) g/dL Globulin (2.2-3.9) gm/dL Albumin/Globulin Ratio (1.0-2.1) Alpha Fetoprotein (0.0-7.5) ng/mL Carcinoembryonic Ag (0-3.0) ng/mL CA 19-9 Antigen (0-37) U/mL Urine Color (YELLOW) Urine Clarity (Clear) Urine pH (5.0-8.0) Ur Specific [place] (1.003-1.030) Urine Protein (NEGATIVE) mg/dL Urine Glucose (UA) (Normal) mg/dL Urine Ketones (NEGATIVE) mg/dL Urine Blood (NEGATIVE) Urine Nitrate (NEGATIVE) Urine Bilirubin (NEGATIVE) Urine Urobilinogen (0.2-1.0) mg/dL Ur Leukocyte Esterase (Negative) Nyasia/uL Urine WBC (Auto) (0-5) /hpf Urine RBC (Auto) (0-3) /hpf Urine WBC Clumps (Auto) (NONE) /hpf Ur Squamous Epith Cells (0-5) /hpf Calcium Oxalate Crystal (<OCC) /hpf Urine Bacteria (<OCC) Hyaline Casts (0-2) /lpf Ur Random Creatinine mg/dL U Random Total Protein Ur Random Sodium mmol/L Urine Microalbumin (0.0-16.6) mg/L Complement C3 (88.0-165.0) mg/dL Complement C4 (14.0-44.0) mg/dL 06/20/17 06/20/17 06/20/17 Range/Units 07:15 07:15 07:12 WBC 16.5 H (4.8-10.8) K/uL RBC 2.55 L (4.40-5.90) Mil/uL Hgb 9.0 L (12.0-18.0) g/dL Hct 26.6 L (35.0-51.0) % MCV 104.3 H (80.0-94.0) fL MCH 35.3 H (27.0-31.0) pg MCHC 33.8 (33.0-37.0) g/dL RDW 20.5 H (11.5-14.5) % Plt Count 65 L D (130-400) K/uL MPV 9.4 (7.2-11.7) fL Neut % (Auto) 85.3 H (50.0-75.0) % Lymph % (Auto) 6.6 L (20.0-40.0) % [place] % (Auto) 7.5 (0.0-10.0) % Eos % (Auto) 0.3 (0.0-4.0) % Baso % (Auto) 0.3 (0.0-2.0) % Neut # 14.1 H (1.8-7.0) K/uL Lymph # 1.1 (1.0-4.3) K/uL [place] # 1.2 H (0.0-0.8) K/uL Eos # 0.0 (0.0-0.7) K/uL Baso # 0.1 (0.0-0.2) K/uL Neutrophils % (Manual) 84 H (50-75) % Band Neutrophils % 2 (0-2) % Lymphocytes % (Manual) 10 L (20-40) % Monocytes % (Manual) 3 (0-10) % Eosinophils % (Manual) 1 (0-4) % Platelet Estimate Decreased L (NORMAL) Polychromasia Slight Hypochromasia (manual) Slight Poikilocytosis (manual Slight Anisocytosis (manual) Slight Microcytosis (manual) Slight Macrocytosis (manual) Slight Target Cells Slight Ovalocytes Slight Ze Cells Slight PT (9.7-12.2) SECONDS INR APTT (21-34) SECONDS Fibrinogen (200-400) mg/dL D-Dimer, Quantitative (0-243) ng/mlDDU Sodium 126 L (132-148) mmol/L Potassium 5.0 (3.6-5.2) mmol/L Chloride 94 L (98-107) mmol/L Carbon Dioxide 22 (22-30) mmol/L Anion Gap 15 (10-20) BUN 77 H (9-20) mg/dL Creatinine 3.5 H (0.8-1.5) mg/dL Est GFR ( Amer) 22 Est GFR (Non-Af Amer) 18 POC Glucose (mg/dL) 89 (65-110) mg/dL Random Glucose 93 (75-110) mg/dL Lactic Acid (0.7-2.1) mmol/L Calcium 7.6 L (8.6-10.4) mg/dl Phosphorus 6.1 H (2.5-4.5) mg/dL Magnesium 2.1 (1.6-2.3) mg/dL Total Bilirubin 5.1 H (0.2-1.3) mg/dL AST 20 (17-59) U/L ALT 29 (21-72) U/L Alkaline Phosphatase 41 (38-126) U/L Ammonia (9-33) umol/L Total Protein 5.6 L (6.3-8.3) g/dL Albumin 2.3 L (3.5-5.0) g/dL Globulin 3.4 (2.2-3.9) gm/dL Albumin/Globulin Ratio 0.7 L (1.0-2.1) Alpha Fetoprotein (0.0-7.5) ng/mL Carcinoembryonic Ag (0-3.0) ng/mL CA 19-9 Antigen (0-37) U/mL Urine Color (YELLOW) Urine Clarity (Clear) Urine pH (5.0-8.0) Ur Specific [place] (1.003-1.030) Urine Protein (NEGATIVE) mg/dL Urine Glucose (UA) (Normal) mg/dL Urine Ketones (NEGATIVE) mg/dL Urine Blood (NEGATIVE) Urine Nitrate (NEGATIVE) Urine Bilirubin (NEGATIVE) Urine Urobilinogen (0.2-1.0) mg/dL Ur Leukocyte Esterase (Negative) [place]/uL Urine WBC (Auto) (0-5) /hpf Urine RBC (Auto) (0-3) /hpf Urine WBC Clumps (Auto) (NONE) /hpf Ur Squamous Epith Cells (0-5) /hpf Calcium Oxalate Crystal (<OCC) /hpf Urine Bacteria (<OCC) Hyaline Casts (0-2) /lpf Ur Random Creatinine mg/dL U Random Total Protein Ur Random Sodium mmol/L Urine Microalbumin (0.0-16.6) mg/L Complement C3 (88.0-165.0) mg/dL Complement C4 (14.0-44.0) mg/dL 06/19/17 06/19/17 06/19/17 Range/Units 20:57 17:05 17:05 WBC (4.8-10.8) K/uL RBC (4.40-5.90) Mil/uL Hgb (12.0-18.0) g/dL Hct (35.0-51.0) % MCV (80.0-94.0) fL MCH (27.0-31.0) pg MCHC (33.0-37.0) g/dL RDW (11.5-14.5) % Plt Count (130-400) K/uL MPV (7.2-11.7) fL Neut % (Auto) (50.0-75.0) % Lymph % (Auto) (20.0-40.0) % [place] % (Auto) (0.0-10.0) % Eos % (Auto) (0.0-4.0) % Baso % (Auto) (0.0-2.0) % Neut # (1.8-7.0) K/uL Lymph # (1.0-4.3) K/uL [place] # (0.0-0.8) K/uL Eos # (0.0-0.7) K/uL Baso # (0.0-0.2) K/uL Neutrophils % (Manual) (50-75) % Band Neutrophils % (0-2) % Lymphocytes % (Manual) (20-40) % Monocytes % (Manual) (0-10) % Eosinophils % (Manual) (0-4) % Platelet Estimate (NORMAL) Polychromasia Hypochromasia (manual) Poikilocytosis (manual Anisocytosis (manual) Microcytosis (manual) Macrocytosis (manual) Target Cells Ovalocytes Ze Cells PT (9.7-12.2) SECONDS INR APTT (21-34) SECONDS Fibrinogen (200-400) mg/dL D-Dimer, Quantitative (0-243) ng/mlDDU Sodium (132-148) mmol/L Potassium (3.6-5.2) mmol/L Chloride (98-107) mmol/L Carbon Dioxide (22-30) mmol/L Anion Gap (10-20) BUN (9-20) mg/dL Creatinine (0.8-1.5) mg/dL Est GFR ( Amer) Est GFR (Non-Af Amer) POC Glucose (mg/dL) 114 H (65-110) mg/dL Random Glucose (75-110) mg/dL Lactic Acid 3.7 H (0.7-2.1) mmol/L Calcium (8.6-10.4) mg/dl Phosphorus (2.5-4.5) mg/dL Magnesium (1.6-2.3) mg/dL Total Bilirubin (0.2-1.3) mg/dL AST (17-59) U/L ALT (21-72) U/L Alkaline Phosphatase (38-126) U/L Ammonia (9-33) umol/L Total Protein (6.3-8.3) g/dL Albumin (3.5-5.0) g/dL Globulin (2.2-3.9) gm/dL Albumin/Globulin Ratio (1.0-2.1) Alpha Fetoprotein (0.0-7.5) ng/mL Carcinoembryonic Ag (0-3.0) ng/mL CA 19-9 Antigen (0-37) U/mL Urine Color (YELLOW) Urine Clarity (Clear) Urine pH (5.0-8.0) Ur Specific [place] (1.003-1.030) Urine Protein (NEGATIVE) mg/dL Urine Glucose (UA) (Normal) mg/dL Urine Ketones (NEGATIVE) mg/dL Urine Blood (NEGATIVE) Urine Nitrate (NEGATIVE) Urine Bilirubin (NEGATIVE) Urine Urobilinogen (0.2-1.0) mg/dL Ur Leukocyte Esterase (Negative) [place]/uL Urine WBC (Auto) (0-5) /hpf Urine RBC (Auto) (0-3) /hpf Urine WBC Clumps (Auto) (NONE) /hpf Ur Squamous Epith Cells (0-5) /hpf Calcium Oxalate Crystal (<OCC) /hpf Urine Bacteria (<OCC) Hyaline Casts (0-2) /lpf Ur Random Creatinine mg/dL U Random Total Protein Ur Random Sodium mmol/L Urine Microalbumin (0.0-16.6) mg/L Complement C3 < 40.0 L (88.0-165.0) mg/dL Complement C4 8.3 L (14.0-44.0) mg/dL 06/19/17 06/19/17 06/19/17 Range/Units 17:05 16:06 16:00 WBC (4.8-10.8) K/uL RBC (4.40-5.90) Mil/uL Hgb (12.0-18.0) g/dL Hct (35.0-51.0) % MCV (80.0-94.0) fL MCH (27.0-31.0) pg MCHC (33.0-37.0) g/dL RDW (11.5-14.5) % Plt Count (130-400) K/uL MPV (7.2-11.7) fL Neut % (Auto) (50.0-75.0) % Lymph % (Auto) (20.0-40.0) % [place] % (Auto) (0.0-10.0) % Eos % (Auto) (0.0-4.0) % Baso % (Auto) (0.0-2.0) % Neut # (1.8-7.0) K/uL Lymph # (1.0-4.3) K/uL [place] # (0.0-0.8) K/uL Eos # (0.0-0.7) K/uL Baso # (0.0-0.2) K/uL Neutrophils % (Manual) (50-75) % Band Neutrophils % (0-2) % Lymphocytes % (Manual) (20-40) % Monocytes % (Manual) (0-10) % Eosinophils % (Manual) (0-4) % Platelet Estimate (NORMAL) Polychromasia Hypochromasia (manual) Poikilocytosis (manual Anisocytosis (manual) Microcytosis (manual) Macrocytosis (manual) Target Cells Ovalocytes [place] Cells PT (9.7-12.2) SECONDS INR APTT (21-34) SECONDS Fibrinogen 161 L (200-400) mg/dL D-Dimer, Quantitative 2867 H (0-243) ng/mlDDU Sodium (132-148) mmol/L Potassium (3.6-5.2) mmol/L Chloride (98-107) mmol/L Carbon Dioxide (22-30) mmol/L Anion Gap (10-20) BUN (9-20) mg/dL Creatinine (0.8-1.5) mg/dL Est GFR ( Amer) Est GFR (Non-Af Amer) POC Glucose (mg/dL) 109 (65-110) mg/dL Random Glucose (75-110) mg/dL Lactic Acid (0.7-2.1) mmol/L Calcium (8.6-10.4) mg/dl Phosphorus (2.5-4.5) mg/dL Magnesium (1.6-2.3) mg/dL Total Bilirubin (0.2-1.3) mg/dL AST (17-59) U/L ALT (21-72) U/L Alkaline Phosphatase (38-126) U/L Ammonia (9-33) umol/L Total Protein (6.3-8.3) g/dL Albumin (3.5-5.0) g/dL Globulin (2.2-3.9) gm/dL Albumin/Globulin Ratio (1.0-2.1) Alpha Fetoprotein (0.0-7.5) ng/mL Carcinoembryonic Ag (0-3.0) ng/mL CA 19-9 Antigen (0-37) U/mL Urine Color (YELLOW) Urine Clarity (Clear) Urine pH (5.0-8.0) Ur Specific [place] (1.003-1.030) Urine Protein (NEGATIVE) mg/dL Urine Glucose (UA) (Normal) mg/dL Urine Ketones (NEGATIVE) mg/dL Urine Blood (NEGATIVE) Urine Nitrate (NEGATIVE) Urine Bilirubin (NEGATIVE) Urine Urobilinogen (0.2-1.0) mg/dL Ur Leukocyte Esterase (Negative) [place]/uL Urine WBC (Auto) (0-5) /hpf Urine RBC (Auto) (0-3) /hpf Urine WBC Clumps (Auto) (NONE) /hpf Ur Squamous Epith Cells (0-5) /hpf Calcium Oxalate Crystal (<OCC) /hpf Urine Bacteria (<OCC) Hyaline Casts (0-2) /lpf Ur Random Creatinine mg/dL U Random Total Protein 31.0 H Ur Random Sodium mmol/L Urine Microalbumin (0.0-16.6) mg/L Complement C3 (88.0-165.0) mg/dL Complement C4 (14.0-44.0) mg/dL 06/19/17 06/19/17 06/19/17 Range/Units 15:47 15:47 15:47 WBC (4.8-10.8) K/uL RBC (4.40-5.90) Mil/uL Hgb (12.0-18.0) g/dL Hct (35.0-51.0) % MCV (80.0-94.0) fL MCH (27.0-31.0) pg MCHC (33.0-37.0) g/dL RDW (11.5-14.5) % Plt Count (130-400) K/uL MPV (7.2-11.7) fL Neut % (Auto) (50.0-75.0) % Lymph % (Auto) (20.0-40.0) % [place] % (Auto) (0.0-10.0) % Eos % (Auto) (0.0-4.0) % Baso % (Auto) (0.0-2.0) % Neut # (1.8-7.0) K/uL Lymph # (1.0-4.3) K/uL [place] # (0.0-0.8) K/uL Eos # (0.0-0.7) K/uL Baso # (0.0-0.2) K/uL Neutrophils % (Manual) (50-75) % Band Neutrophils % (0-2) % Lymphocytes % (Manual) (20-40) % Monocytes % (Manual) (0-10) % Eosinophils % (Manual) (0-4) % Platelet Estimate (NORMAL) Polychromasia Hypochromasia (manual) Poikilocytosis (manual Anisocytosis (manual) Microcytosis (manual) Macrocytosis (manual) Target Cells Ovalocytes Ze Cells PT (9.7-12.2) SECONDS INR APTT (21-34) SECONDS Fibrinogen (200-400) mg/dL D-Dimer, Quantitative (0-243) ng/mlDDU Sodium (132-148) mmol/L Potassium (3.6-5.2) mmol/L Chloride (98-107) mmol/L Carbon Dioxide (22-30) mmol/L Anion Gap (10-20) BUN (9-20) mg/dL Creatinine (0.8-1.5) mg/dL Est GFR ( Amer) Est GFR (Non-Af Amer) POC Glucose (mg/dL) (65-110) mg/dL Random Glucose (75-110) mg/dL Lactic Acid (0.7-2.1) mmol/L Calcium (8.6-10.4) mg/dl Phosphorus (2.5-4.5) mg/dL Magnesium (1.6-2.3) mg/dL Total Bilirubin (0.2-1.3) mg/dL AST (17-59) U/L ALT (21-72) U/L Alkaline Phosphatase (38-126) U/L Ammonia (9-33) umol/L Total Protein (6.3-8.3) g/dL Albumin (3.5-5.0) g/dL Globulin (2.2-3.9) gm/dL Albumin/Globulin Ratio (1.0-2.1) Alpha Fetoprotein (0.0-7.5) ng/mL Carcinoembryonic Ag (0-3.0) ng/mL CA 19-9 Antigen (0-37) U/mL Urine Color Yellow (YELLOW) Urine Clarity Hazy (Clear) Urine pH 5.0 (5.0-8.0) Ur Specific [place] 1.020 (1.003-1.030) Urine Protein 1+ H (NEGATIVE) mg/dL Urine Glucose (UA) Normal (Normal) mg/dL Urine Ketones Negative (NEGATIVE) mg/dL Urine Blood 3+ H (NEGATIVE) Urine Nitrate Negative (NEGATIVE) Urine Bilirubin Negative (NEGATIVE) Urine Urobilinogen Normal (0.2-1.0) mg/dL Ur Leukocyte Esterase 3+ H (Negative) [place]/uL Urine WBC (Auto) 49 H (0-5) /hpf Urine RBC (Auto) 29 H (0-3) /hpf Urine WBC Clumps (Auto) Rare H (NONE) /hpf Ur Squamous Epith Cells 2 (0-5) /hpf Calcium Oxalate Crystal Occ H (<OCC) /hpf Urine Bacteria Rare (<OCC) Hyaline Casts >20 H (0-2) /lpf Ur Random Creatinine 193.0 mg/dL U Random Total Protein Cancelled Ur Random Sodium mmol/L Urine Microalbumin 105.1 H (0.0-16.6) mg/L Complement C3 (88.0-165.0) mg/dL Complement C4 (14.0-44.0) mg/dL 06/19/17 06/19/17 06/19/17 Range/Units 12:36 12:36 12:36 WBC (4.8-10.8) K/uL RBC (4.40-5.90) Mil/uL Hgb (12.0-18.0) g/dL Hct (35.0-51.0) % MCV (80.0-94.0) fL MCH (27.0-31.0) pg MCHC (33.0-37.0) g/dL RDW (11.5-14.5) % Plt Count (130-400) K/uL MPV (7.2-11.7) fL Neut % (Auto) (50.0-75.0) % Lymph % (Auto) (20.0-40.0) % [place] % (Auto) (0.0-10.0) % Eos % (Auto) (0.0-4.0) % Baso % (Auto) (0.0-2.0) % Neut # (1.8-7.0) K/uL Lymph # (1.0-4.3) K/uL [place] # (0.0-0.8) K/uL Eos # (0.0-0.7) K/uL Baso # (0.0-0.2) K/uL Neutrophils % (Manual) (50-75) % Band Neutrophils % (0-2) % Lymphocytes % (Manual) (20-40) % Monocytes % (Manual) (0-10) % Eosinophils % (Manual) (0-4) % Platelet Estimate (NORMAL) Polychromasia Hypochromasia (manual) Poikilocytosis (manual Anisocytosis (manual) Microcytosis (manual) Macrocytosis (manual) Target Cells Ovalocytes [place] Cells PT (9.7-12.2) SECONDS INR APTT (21-34) SECONDS Fibrinogen (200-400) mg/dL D-Dimer, Quantitative (0-243) ng/mlDDU Sodium (132-148) mmol/L Potassium (3.6-5.2) mmol/L Chloride (98-107) mmol/L Carbon Dioxide (22-30) mmol/L Anion Gap (10-20) BUN (9-20) mg/dL Creatinine (0.8-1.5) mg/dL Est GFR ( Amer) Est GFR (Non-Af Amer) POC Glucose (mg/dL) (65-110) mg/dL Random Glucose (75-110) mg/dL Lactic Acid (0.7-2.1) mmol/L Calcium (8.6-10.4) mg/dl Phosphorus (2.5-4.5) mg/dL Magnesium (1.6-2.3) mg/dL Total Bilirubin (0.2-1.3) mg/dL AST (17-59) U/L ALT (21-72) U/L Alkaline Phosphatase (38-126) U/L Ammonia (9-33) umol/L Total Protein (6.3-8.3) g/dL Albumin (3.5-5.0) g/dL Globulin (2.2-3.9) gm/dL Albumin/Globulin Ratio (1.0-2.1) Alpha Fetoprotein 50.4 H (0.0-7.5) ng/mL Carcinoembryonic Ag 2.2 (0-3.0) ng/mL CA 19-9 Antigen 16.9 (0-37) U/mL Urine Color (YELLOW) Urine Clarity (Clear) Urine pH (5.0-8.0) Ur Specific [place] (1.003-1.030) Urine Protein (NEGATIVE) mg/dL Urine Glucose (UA) (Normal) mg/dL Urine Ketones (NEGATIVE) mg/dL Urine Blood (NEGATIVE) Urine Nitrate (NEGATIVE) Urine Bilirubin (NEGATIVE) Urine Urobilinogen (0.2-1.0) mg/dL Ur Leukocyte Esterase (Negative) [place]/uL Urine WBC (Auto) (0-5) /hpf Urine RBC (Auto) (0-3) /hpf Urine WBC Clumps (Auto) (NONE) /hpf Ur Squamous Epith Cells (0-5) /hpf Calcium Oxalate Crystal (<OCC) /hpf Urine Bacteria (<OCC) Hyaline Casts (0-2) /lpf Ur Random Creatinine mg/dL U Random Total Protein Ur Random Sodium < 5 mmol/L Urine Microalbumin (0.0-16.6) mg/L Complement C3 (88.0-165.0) mg/dL Complement C4 (14.0-44.0) mg/dL 06/19/ Range/Units 12:32 WBC (4.8-10.8) K/uL RBC (4.40-5.90) Mil/uL Hgb (12.0-18.0) g/dL Hct (35.0-51.0) % MCV (80.0-94.0) fL MCH (27.0-31.0) pg MCHC (33.0-37.0) g/dL RDW (11.5-14.5) % Plt Count (130-400) K/uL MPV (7.2-11.7) fL Neut % (Auto) (50.0-75.0) % Lymph % (Auto) (20.0-40.0) % [place] % (Auto) (0.0-10.0) % Eos % (Auto) (0.0-4.0) % Baso % (Auto) (0.0-2.0) % Neut # (1.8-7.0) K/uL Lymph # (1.0-4.3) K/uL [place] # (0.0-0.8) K/uL Eos # (0.0-0.7) K/uL Baso # (0.0-0.2) K/uL Neutrophils % (Manual) (50-75) % Band Neutrophils % (0-2) % Lymphocytes % (Manual) (20-40) % Monocytes % (Manual) (0-10) % Eosinophils % (Manual) (0-4) % Platelet Estimate (NORMAL) Polychromasia Hypochromasia (manual) Poikilocytosis (manual Anisocytosis (manual) Microcytosis (manual) Macrocytosis (manual) Target Cells Ovalocytes [place] Cells PT (9.7-12.2) SECONDS INR APTT (21-34) SECONDS Fibrinogen (200-400) mg/dL D-Dimer, Quantitative (0-243) ng/mlDDU Sodium (132-148) mmol/L Potassium (3.6-5.2) mmol/L Chloride (98-107) mmol/L Carbon Dioxide (22-30) mmol/L Anion Gap (10-20) BUN (9-20) mg/dL Creatinine (0.8-1.5) mg/dL Est GFR ( Amer) Est GFR (Non-Af Amer) POC Glucose (mg/dL) 95 (65-110) mg/dL Random Glucose (75-110) mg/dL Lactic Acid (0.7-2.1) mmol/L Calcium (8.6-10.4) mg/dl Phosphorus (2.5-4.5) mg/dL Magnesium (1.6-2.3) mg/dL Total Bilirubin (0.2-1.3) mg/dL AST (17-59) U/L ALT (21-72) U/L Alkaline Phosphatase (38-126) U/L Ammonia (9-33) umol/L Total Protein (6.3-8.3) g/dL Albumin (3.5-5.0) g/dL Globulin (2.2-3.9) gm/dL Albumin/Globulin Ratio (1.0-2.1) Alpha Fetoprotein (0.0-7.5) ng/mL Carcinoembryonic Ag (0-3.0) ng/mL CA 19-9 Antigen (0-37) U/mL Urine Color (YELLOW) Urine Clarity (Clear) Urine pH (5.0-8.0) Ur Specific [place] (1.003-1.030) Urine Protein (NEGATIVE) mg/dL Urine Glucose (UA) (Normal) mg/dL Urine Ketones (NEGATIVE) mg/dL Urine Blood (NEGATIVE) Urine Nitrate (NEGATIVE) Urine Bilirubin (NEGATIVE) Urine Urobilinogen (0.2-1.0) mg/dL Ur Leukocyte Esterase (Negative) [place]/uL Urine WBC (Auto) (0-5) /hpf Urine RBC (Auto) (0-3) /hpf Urine WBC Clumps (Auto) (NONE) /hpf Ur Squamous Epith Cells (0-5) /hpf Calcium Oxalate Crystal (<OCC) /hpf Urine Bacteria (<OCC) Hyaline Casts (0-2) /lpf Ur Random Creatinine mg/dL U Random Total Protein Ur Random Sodium mmol/L Urine Microalbumin (0.0-16.6) mg/L Complement C3 (88.0-165.0) mg/dL Complement C4 (14.0-44.0) mg/dL Laboratory Results - last 24 hr 06/19/17 06/19/17 06/19/17 12:32 12:36 12:36 WBC RBC Hgb Hct MCV MCH MCHC RDW Plt Count MPV Neut % (Auto) Lymph % (Auto) [place] % (Auto) Eos % (Auto) Baso % (Auto) Neut # Lymph # [place] # Eos # Baso # Neutrophils % (Manual) Band Neutrophils % Lymphocytes % (Manual) Monocytes % (Manual) Eosinophils % (Manual) Platelet Estimate Polychromasia Hypochromasia (manual) Poikilocytosis (manual Anisocytosis (manual) Microcytosis (manual) Macrocytosis (manual) Target Cells Ovalocytes Ze Cells PT INR APTT Fibrinogen D-Dimer, Quantitative Sodium Potassium Chloride Carbon Dioxide Anion Gap BUN Creatinine Est GFR ( Amer) Est GFR (Non-Af Amer) POC Glucose (mg/dL) 95 Random Glucose Lactic Acid Calcium Phosphorus Magnesium Total Bilirubin AST ALT Alkaline Phosphatase Ammonia Total Protein Albumin Globulin Albumin/Globulin Ratio Alpha Fetoprotein 50.4 H Carcinoembryonic Ag 2.2 CA 19-9 Antigen 16.9 Urine Color Urine Clarity Urine pH Ur Specific [place] Urine Protein Urine Glucose (UA) Urine Ketones Urine Blood Urine Nitrate Urine Bilirubin Urine Urobilinogen Ur Leukocyte Esterase Urine WBC (Auto) Urine RBC (Auto) Urine WBC Clumps (Auto) Ur Squamous Epith Cells Calcium Oxalate Crystal Urine Bacteria Hyaline Casts Ur Random Creatinine U Random Total Protein Ur Random Sodium Urine Microalbumin Complement C3 Complement C4 06/19/17 06/19/17 06/19/17 12:36 15:47 15:47 WBC RBC Hgb Hct MCV MCH MCHC RDW Plt Count MPV Neut % (Auto) Lymph % (Auto) [place] % (Auto) Eos % (Auto) Baso % (Auto) Neut # Lymph # [place] # Eos # Baso # Neutrophils % (Manual) Band Neutrophils % Lymphocytes % (Manual) Monocytes % (Manual) Eosinophils % (Manual) Platelet Estimate Polychromasia Hypochromasia (manual) Poikilocytosis (manual Anisocytosis (manual) Microcytosis (manual) Macrocytosis (manual) Target Cells Ovalocytes Ze Cells PT INR APTT Fibrinogen D-Dimer, Quantitative Sodium Potassium Chloride Carbon Dioxide Anion Gap BUN Creatinine Est GFR ( Amer) Est GFR (Non-Af Amer) POC Glucose (mg/dL) Random Glucose Lactic Acid Calcium Phosphorus Magnesium Total Bilirubin AST ALT Alkaline Phosphatase Ammonia Total Protein Albumin Globulin Albumin/Globulin Ratio Alpha Fetoprotein Carcinoembryonic Ag CA 19-9 Antigen Urine Color Yellow Urine Clarity Hazy Urine pH 5.0 Ur Specific [place] 1.020 Urine Protein 1+ H Urine Glucose (UA) Normal Urine Ketones Negative Urine Blood 3+ H Urine Nitrate Negative Urine Bilirubin Negative Urine Urobilinogen Normal Ur Leukocyte Esterase 3+ H Urine WBC (Auto) 49 H Urine RBC (Auto) 29 H Urine WBC Clumps (Auto) Rare H Ur Squamous Epith Cells 2 Calcium Oxalate Crystal Occ H Urine Bacteria Rare Hyaline Casts >20 H Ur Random Creatinine U Random Total Protein Ur Random Sodium < 5 Urine Microalbumin 105.1 H Complement C3 Complement C4 06/19/17 06/19/17 06/19/17 15:47 16:00 16:06 WBC RBC Hgb Hct MCV MCH MCHC RDW Plt Count MPV Neut % (Auto) Lymph % (Auto) [place] % (Auto) Eos % (Auto) Baso % (Auto) Neut # Lymph # [place] # Eos # Baso # Neutrophils % (Manual) Band Neutrophils % Lymphocytes % (Manual) Monocytes % (Manual) Eosinophils % (Manual) Platelet Estimate Polychromasia Hypochromasia (manual) Poikilocytosis (manual Anisocytosis (manual) Microcytosis (manual) Macrocytosis (manual) Target Cells Ovalocytes Ze Cells PT INR APTT Fibrinogen D-Dimer, Quantitative Sodium Potassium Chloride Carbon Dioxide Anion Gap BUN Creatinine Est GFR ( Amer) Est GFR (Non-Af Amer) POC Glucose (mg/dL) 109 Random Glucose Lactic Acid Calcium Phosphorus Magnesium Total Bilirubin AST ALT Alkaline Phosphatase Ammonia Total Protein Albumin Globulin Albumin/Globulin Ratio Alpha Fetoprotein Carcinoembryonic Ag CA 19-9 [place] Urine Color Urine Clarity Urine pH Ur Specific [place] Urine Protein Urine Glucose (UA) Urine Ketones Urine Blood Urine Nitrate Urine Bilirubin Urine Urobilinogen Ur Leukocyte Esterase Urine WBC (Auto) Urine RBC (Auto) Urine WBC Clumps (Auto) Ur Squamous Epith Cells Calcium Oxalate Crystal Urine Bacteria Hyaline Casts Ur Random Creatinine 193.0 U Random Total Protein Cancelled 31.0 H Ur Random Sodium Urine Microalbumin Complement C3 Complement C4 06/19/17 06/19/17 06/19/17 17:05 17:05 17:05 WBC RBC Hgb Hct MCV MCH MCHC RDW Plt Count MPV Neut % (Auto) Lymph % (Auto) [place] % (Auto) Eos % (Auto) Baso % (Auto) Neut # Lymph # [place] # Eos # Baso # Neutrophils % (Manual) Band Neutrophils % Lymphocytes % (Manual) Monocytes % (Manual) Eosinophils % (Manual) Platelet Estimate Polychromasia Hypochromasia (manual) Poikilocytosis (manual Anisocytosis (manual) Microcytosis (manual) Macrocytosis (manual) Target Cells Ovalocytes Ze Cells PT INR APTT Fibrinogen 161 L D-Dimer, Quantitative 2867 H Sodium Potassium Chloride Carbon Dioxide Anion Gap BUN Creatinine Est GFR ( Amer) Est GFR (Non-Af Amer) POC Glucose (mg/dL) Random Glucose Lactic Acid 3.7 H Calcium Phosphorus Magnesium Total Bilirubin AST ALT Alkaline Phosphatase Ammonia Total Protein Albumin Globulin Albumin/Globulin Ratio Alpha Fetoprotein Carcinoembryonic Ag CA 19-9 [place] Urine Color Urine Clarity Urine pH Ur Specific [place] Urine Protein Urine Glucose (UA) Urine Ketones Urine Blood Urine Nitrate Urine Bilirubin Urine Urobilinogen Ur Leukocyte Esterase Urine WBC (Auto) Urine RBC (Auto) Urine WBC Clumps (Auto) Ur Squamous Epith Cells Calcium Oxalate Crystal Urine Bacteria Hyaline Casts Ur Random Creatinine U Random Total Protein Ur Random Sodium Urine Microalbumin Complement C3 < 40.0 L Complement C4 8.3 L 06/19/17 06/20/17 06/20/17 20:57 07:12 07:15 WBC 16.5 H RBC 2.55 L Hgb 9.0 L Hct 26.6 L MCV 104.3 H MCH 35.3 H MCHC 33.8 RDW 20.5 H Plt Count 65 L D MPV 9.4 Neut % (Auto) 85.3 H Lymph % (Auto) 6.6 L [place] % (Auto) 7.5 Eos % (Auto) 0.3 Baso % (Auto) 0.3 Neut # 14.1 H Lymph # 1.1 [place] # 1.2 H Eos # 0.0 Baso # 0.1 Neutrophils % (Manual) 84 H Band Neutrophils % 2 Lymphocytes % (Manual) 10 L Monocytes % (Manual) 3 Eosinophils % (Manual) 1 Platelet Estimate Decreased L Polychromasia Slight Hypochromasia (manual) Slight Poikilocytosis (manual Slight Anisocytosis (manual) Slight Microcytosis (manual) Slight Macrocytosis (manual) Slight Target Cells Slight Ovalocytes Slight Ze Cells Slight PT INR APTT Fibrinogen D-Dimer, Quantitative Sodium Potassium Chloride Carbon Dioxide Anion Gap BUN Creatinine Est GFR ( Amer) Est GFR (Non-Af Amer) POC Glucose (mg/dL) 114 H 89 Random Glucose Lactic Acid Calcium Phosphorus Magnesium Total Bilirubin AST ALT Alkaline Phosphatase Ammonia Total Protein Albumin Globulin Albumin/Globulin Ratio Alpha Fetoprotein Carcinoembryonic Ag CA 19-9 [place] Urine Color Urine Clarity Urine pH Ur Specific [place] Urine Protein Urine Glucose (UA) Urine Ketones Urine Blood Urine Nitrate Urine Bilirubin Urine Urobilinogen Ur Leukocyte Esterase Urine WBC (Auto) Urine RBC (Auto) Urine WBC Clumps (Auto) Ur Squamous Epith Cells Calcium Oxalate Crystal Urine Bacteria Hyaline Casts Ur Random Creatinine U Random Total Protein Ur Random Sodium Urine Microalbumin Complement C3 Complement C4 06/20/17 06/20/17 06/20/17 07:15 07:15 07:15 WBC RBC Hgb Hct MCV MCH MCHC RDW Plt Count MPV Neut % (Auto) Lymph % (Auto) [place] % (Auto) Eos % (Auto) Baso % (Auto) Neut # Lymph # [place] # Eos # Baso # Neutrophils % (Manual) Band Neutrophils % Lymphocytes % (Manual) Monocytes % (Manual) Eosinophils % (Manual) Platelet Estimate Polychromasia Hypochromasia (manual) Poikilocytosis (manual Anisocytosis (manual) Microcytosis (manual) Macrocytosis (manual) Target Cells Ovalocytes Ze Cells PT 25.0 H INR 2.2 APTT 71 H Fibrinogen D-Dimer, Quantitative Sodium 126 L Potassium 5.0 Chloride 94 L Carbon Dioxide 22 Anion Gap 15 BUN 77 H Creatinine 3.5 H Est GFR ( Amer) 22 Est GFR (Non-Af Amer) 18 POC Glucose (mg/dL) Random Glucose 93 Lactic Acid Calcium 7.6 L Phosphorus 6.1 H Magnesium 2.1 Total Bilirubin 5.1 H AST 20 ALT 29 Alkaline Phosphatase 41 Ammonia 21 D Total Protein 5.6 L Albumin 2.3 L Globulin 3.4 Albumin/Globulin Ratio 0.7 L Alpha Fetoprotein Carcinoembryonic Ag CA 19-9 [place] Urine Color Urine Clarity Urine pH Ur Specific [place] Urine Protein Urine Glucose (UA) Urine Ketones Urine Blood Urine Nitrate Urine Bilirubin Urine Urobilinogen Ur Leukocyte Esterase Urine WBC (Auto) Urine RBC (Auto) Urine WBC Clumps (Auto) Ur Squamous Epith Cells Calcium Oxalate Crystal Urine Bacteria Hyaline Casts Ur Random Creatinine U Random Total Protein Ur Random Sodium Urine Microalbumin Complement C3 Complement C4 06/20/17 11:17 WBC RBC Hgb Hct MCV MCH MCHC RDW Plt Count MPV Neut % (Auto) Lymph % (Auto) [place] % (Auto) Eos % (Auto) Baso % (Auto) Neut # Lymph # [place] # Eos # Baso # Neutrophils % (Manual) Band Neutrophils % Lymphocytes % (Manual) Monocytes % (Manual) Eosinophils % (Manual) Platelet Estimate Polychromasia Hypochromasia (manual) Poikilocytosis (manual Anisocytosis (manual) Microcytosis (manual) Macrocytosis (manual) Target Cells Ovalocytes [place] Cells PT INR APTT Fibrinogen D-Dimer, Quantitative Sodium Potassium Chloride Carbon Dioxide Anion Gap BUN Creatinine Est GFR ( Amer) Est GFR (Non-Af Amer) POC Glucose (mg/dL) 97 Random Glucose Lactic Acid Calcium Phosphorus Magnesium Total Bilirubin AST ALT Alkaline Phosphatase Ammonia Total Protein Albumin Globulin Albumin/Globulin Ratio Alpha Fetoprotein Carcinoembryonic Ag CA 19-9 [place] Urine Color Urine Clarity Urine pH Ur Specific [place] Urine Protein Urine Glucose (UA) Urine Ketones Urine Blood Urine Nitrate Urine Bilirubin Urine Urobilinogen Ur Leukocyte Esterase Urine WBC (Auto) Urine RBC (Auto) Urine WBC Clumps (Auto) Ur Squamous Epith Cells Calcium Oxalate Crystal Urine Bacteria Hyaline Casts Ur Random Creatinine U Random Total Protein Ur Random Sodium Urine Microalbumin Complement C3 Complement C4 Fingerstick Blood Sugar Results: 114 Review of Systems - Review of Systems All systems: reviewed and no additional remarkable complaints except (as per HPI ) Critical Care Progress Note - Nutrition Nutrition: Nutrition Category Date Time Status Renal Diet [DIET] Diets 06/18/17 Dinner Active Assessment/Plan - Assessment and Plan (Free Text) Assessment: 57M with PMH Hep C, cirrhosis, treated syphilis, CKD, meningioma, anemia Leukocytosis possibly 2/2 pneumonia Hepatic encephalopathy Possible hepatorenal syndrome Plan: Disposition: patient is DNR/DNI. Will likely need paracentesis. Clear for transfer to telemetry per Dr. Geller. Neuro A&Ox3 06/19 ammonia 152 06/20 ammonia 21 Lactulose 20 g PO Q6 Keppra 5000 mg PO BID Nicotine patch Cardio RRR BP runs low to low normal BNP 2390 Trop negative x1 Midodrine 7.5 mg PO Q8h Propranolol 10 mg TID Respiratory O2 sat 98 CXR showed large pleural effusion on arrival to ED 2L removed in thoracentesis Repeat CXR showed initial improvement then 06/20 CXR showed worsening pleural effusion Renal Balance: +1530 BUN/Cr: 77/3.5 Sodium bicarb drip Fluids, electrolytes, nutrition Na 126 K 5 Cl 94 Bicarb 22 Calcium 7.6 Mag 2.1 Phos 6.1 Albumin 2.3 Infectious disease T 97.8 WBC 16.5 Complement C3 and C4 low Neomycin 500 mg PO Q6 Zosyn 2.25 g Q6h Rifaximin 550 mg BID Florastor Hematology/Oncology H&H: 03/21.6 Plt: 65 PT/PTT/INR: 25/71/2.2 AFP 50.4 (H) CEA 2.2 CA 19-9 16.9 Ferrous sulfate GI AST/ALT: Tbili: 5.1 Lactulose 20 g PO Q6 Octreotide 100 mcg SC Q8 Endocrine monitor blood glucose Prophylaxis Protonix 40 mg PO QD <Moe Geller S - Last Filed: 06/20/17 15:10> CCU Objective - Vital Signs / Intake & Output Vital Signs (Last 4 hours): Vital Signs Temp Pulse Resp BP Pulse Ox 06/20/17 12:22 75 18 104/50 L 98 06/20/17 12:00 98.2 F 75 16 97 06/20/17 11:22 76 16 102/51 L 98 Intake and Output (Last 8hrs): Intake & Output 06/20/17 06/20/17 06/20/17 06:59 14:59 22:59 Intake Total 447.5 50 Output Total 200 Balance 247.5 50 Weight 152 lb 4.8 oz Intake: Intake, IV Amount 207.5 Left Wrist 207.5 Oral 240 50 Output: Urine 200 Urethral (Bosch) 200 Other: # Voids Urethral (Bosch) 0 # Bowel Movements 0 0 - Medications Active Medications: Active Medications Generic Name Dose Route Start Last Admin Trade Name Leticia PRN Reason Stop Dose Admin Albumin Human 12.5 gm 06/20/17 12:45 06/20/17 13:34 Albumin Human 25% (12.5 Gm/50 Ml) IV 06/21/17 08:46 12.5 gm Q4H KARL Administration Ferrous Sulfate 325 mg 06/19/17 18:00 06/20/17 10:44 Feosol PO 325 mg BID KARL Administration Piperacillin Sod/Tazobactam Sod 2.25 gm in 50 mls @ 100 mls/hr 06/18/17 20:00 06/20/17 14:28 Zosyn 2.25 Gm Iv Premix IVPB 100 mls/hr Q6H KARL Administration Vancomycin HCl 1 gm/ Sodium 200 mls @ 166.7 mls/hr 06/20/17 13:00 06/20/17 13 :32 Chloride IVPB 166.7 mls/hr Q24H KARL Administration Lactulose 20 gm 06/18/17 15:00 06/20/17 09:00 Enulose PO Not Given Q6H KARL Levetiracetam 500 mg 06/18/17 18:00 06/20/17 10:44 Keppra PO 500 mg BID KARL Administration Midodrine 10 mg 06/20/17 12:33 06/20/17 13:32 Proamatine PO 10 mg Q8H KARL Administration Neomycin Sulfate 500 mg 06/19/17 12:00 06/20/17 11:00 Neomycin Tab PO 500 mg Q6 KARL Administration Nicotine 1 patch 06/19/17 10:00 06/20/17 10:44 Nicoderm Cq TD 1 patch DAILY KARL Administration Octreotide Acetate 100 mcg 06/19/17 15:30 06/20/17 08:13 Sandostatin SC 100 mcg Q8H KARL Administration Pantoprazole Sodium 40 mg 06/19/17 10:00 06/20/17 10:44 Protonix Ec Tab PO 40 mg DAILY KARL Administration Propranolol HCl 10 mg 06/18/17 18:00 06/19/17 14:00 Inderal PO Not Given TID KARL Rifaximin 550 mg 06/19/17 18:00 06/20/17 10:44 Xifaxan PO 550 mg BID KARL Administration Saccharomyces Boulardii 250 mg 06/19/17 18:00 06/20/17 10:44 Florastor PO 250 mg BID KARL Administration - Patient Studies Lab Studies: Microbiology Studies 06/19/17 12:00 Blood Culture - Preliminary Blood-Venous NO GROWTH AFTER 24 HOURS 06/19/17 11:00 Blood Culture - Preliminary Blood-Venous NO GROWTH AFTER 24 HOURS 06/18/17 14:15 Gram Stain - Final Pleural Fluid Body Fluid Culture - Preliminary NO GROWTH AFTER 2 DAYS 06/18/17 Unknown Urine Culture - Final Urine,Bosch No Growth (<1,000 CFU/ML) 06/18/17 Unknown MRSA Culture (Admit) - Final Naris MRSA NOT DETECTED Lab Studies 06/20/17 06/20/17 06/20/17 Range/Units 11:17 07:15 07:15 WBC (4.8-10.8) K/uL RBC (4.40-5.90) Mil/uL Hgb (12.0-18.0) g/dL Hct (35.0-51.0) % MCV (80.0-94.0) fL MCH (27.0-31.0) pg MCHC (33.0-37.0) g/dL RDW (11.5-14.5) % Plt Count (130-400) K/uL MPV (7.2-11.7) fL Neut % (Auto) (50.0-75.0) % Lymph % (Auto) (20.0-40.0) % [place] % (Auto) (0.0-10.0) % Eos % (Auto) (0.0-4.0) % Baso % (Auto) (0.0-2.0) % Neut # (1.8-7.0) K/uL Lymph # (1.0-4.3) K/uL [place] # (0.0-0.8) K/uL Eos # (0.0-0.7) K/uL Baso # (0.0-0.2) K/uL Neutrophils % (Manual) (50-75) % Band Neutrophils % (0-2) % Lymphocytes % (Manual) (20-40) % Monocytes % (Manual) (0-10) % Eosinophils % (Manual) (0-4) % Platelet Estimate (NORMAL) Polychromasia Hypochromasia (manual) Poikilocytosis (manual Anisocytosis (manual) Microcytosis (manual) Macrocytosis (manual) Target Cells Ovalocytes [place] Cells PT 25.0 H (9.7-12.2) SECONDS INR 2.2 APTT 71 H (21-34) SECONDS Fibrinogen (200-400) mg/dL D-Dimer, Quantitative (0-243) ng/mlDDU Sodium (132-148) mmol/L Potassium (3.6-5.2) mmol/L Chloride (98-107) mmol/L Carbon Dioxide (22-30) mmol/L Anion Gap (10-20) BUN (9-20) mg/dL Creatinine (0.8-1.5) mg/dL Est GFR ( Amer) Est GFR (Non-Af Amer) POC Glucose (mg/dL) 97 (65-110) mg/dL Random Glucose (75-110) mg/dL Lactic Acid (0.7-2.1) mmol/L Calcium (8.6-10.4) mg/dl Phosphorus (2.5-4.5) mg/dL Magnesium (1.6-2.3) mg/dL Total Bilirubin (0.2-1.3) mg/dL AST (17-59) U/L ALT (21-72) U/L Alkaline Phosphatase (38-126) U/L Ammonia 21 D (9-33) umol/L Total Protein (6.3-8.3) g/dL Albumin (3.5-5.0) g/dL Globulin (2.2-3.9) gm/dL Albumin/Globulin Ratio (1.0-2.1) Carcinoembryonic Ag (0-3.0) ng/mL Urine Color (YELLOW) Urine Clarity (Clear) Urine pH (5.0-8.0) Ur Specific [place] (1.003-1.030) Urine Protein (NEGATIVE) mg/dL Urine Glucose (UA) (Normal) mg/dL Urine Ketones (NEGATIVE) mg/dL Urine Blood (NEGATIVE) Urine Nitrate (NEGATIVE) Urine Bilirubin (NEGATIVE) Urine Urobilinogen (0.2-1.0) mg/dL Ur Leukocyte Esterase (Negative) [place]/uL Urine WBC (Auto) (0-5) /hpf Urine RBC (Auto) (0-3) /hpf Urine WBC Clumps (Auto) (NONE) /hpf Ur Squamous Epith Cells (0-5) /hpf Calcium Oxalate Crystal (<OCC) /hpf Urine Bacteria (<OCC) Hyaline Casts (0-2) /lpf Ur Random Creatinine mg/dL U Random Total Protein Urine Microalbumin (0.0-16.6) mg/L Complement C3 (88.0-165.0) mg/dL Complement C4 (14.0-44.0) mg/dL Ur L.pneumophila Ag (NEGATIVE) 06/20/17 06/20/17 06/20/17 Range/Units 07:15 07:15 07:12 WBC 16.5 H (4.8-10.8) K/uL RBC 2.55 L (4.40-5.90) Mil/uL Hgb 9.0 L (12.0-18.0) g/dL Hct 26.6 L (35.0-51.0) % MCV 104.3 H (80.0-94.0) fL MCH 35.3 H (27.0-31.0) pg MCHC 33.8 (33.0-37.0) g/dL RDW 20.5 H (11.5-14.5) % Plt Count 65 L D (130-400) K/uL MPV 9.4 (7.2-11.7) fL Neut % (Auto) 85.3 H (50.0-75.0) % Lymph % (Auto) 6.6 L (20.0-40.0) % [place] % (Auto) 7.5 (0.0-10.0) % Eos % (Auto) 0.3 (0.0-4.0) % Baso % (Auto) 0.3 (0.0-2.0) % Neut # 14.1 H (1.8-7.0) K/uL Lymph # 1.1 (1.0-4.3) K/uL [place] # 1.2 H (0.0-0.8) K/uL Eos # 0.0 (0.0-0.7) K/uL Baso # 0.1 (0.0-0.2) K/uL Neutrophils % (Manual) 84 H (50-75) % Band Neutrophils % 2 (0-2) % Lymphocytes % (Manual) 10 L (20-40) % Monocytes % (Manual) 3 (0-10) % Eosinophils % (Manual) 1 (0-4) % Platelet Estimate Decreased L (NORMAL) Polychromasia Slight Hypochromasia (manual) Slight Poikilocytosis (manual Slight Anisocytosis (manual) Slight Microcytosis (manual) Slight Macrocytosis (manual) Slight Target Cells Slight Ovalocytes Slight [place] Cells Slight PT (9.7-12.2) SECONDS INR APTT (21-34) SECONDS Fibrinogen (200-400) mg/dL D-Dimer, Quantitative (0-243) ng/mlDDU Sodium 126 L (132-148) mmol/L Potassium 5.0 (3.6-5.2) mmol/L Chloride 94 L (98-107) mmol/L Carbon Dioxide 22 (22-30) mmol/L Anion Gap 15 (10-20) BUN 77 H (9-20) mg/dL Creatinine 3.5 H (0.8-1.5) mg/dL Est GFR ( Amer) 22 Est GFR (Non-Af Amer) 18 POC Glucose (mg/dL) 89 (65-110) mg/dL Random Glucose 93 (75-110) mg/dL Lactic Acid (0.7-2.1) mmol/L Calcium 7.6 L (8.6-10.4) mg/dl Phosphorus 6.1 H (2.5-4.5) mg/dL Magnesium 2.1 (1.6-2.3) mg/dL Total Bilirubin 5.1 H (0.2-1.3) mg/dL AST 20 (17-59) U/L ALT 29 (21-72) U/L Alkaline Phosphatase 41 (38-126) U/L Ammonia (9-33) umol/L Total Protein 5.6 L (6.3-8.3) g/dL Albumin 2.3 L (3.5-5.0) g/dL Globulin 3.4 (2.2-3.9) gm/dL Albumin/Globulin Ratio 0.7 L (1.0-2.1) Carcinoembryonic Ag (0-3.0) ng/mL Urine Color (YELLOW) Urine Clarity (Clear) Urine pH (5.0-8.0) Ur Specific [place] (1.003-1.030) Urine Protein (NEGATIVE) mg/dL Urine Glucose (UA) (Normal) mg/dL Urine Ketones (NEGATIVE) mg/dL Urine Blood (NEGATIVE) Urine Nitrate (NEGATIVE) Urine Bilirubin (NEGATIVE) Urine Urobilinogen (0.2-1.0) mg/dL Ur Leukocyte Esterase (Negative) [place]/uL Urine WBC (Auto) (0-5) /hpf Urine RBC (Auto) (0-3) /hpf Urine WBC Clumps (Auto) (NONE) /hpf Ur Squamous Epith Cells (0-5) /hpf Calcium Oxalate Crystal (<OCC) /hpf Urine Bacteria (<OCC) Hyaline Casts (0-2) /lpf Ur Random Creatinine mg/dL U Random Total Protein Urine Microalbumin (0.0-16.6) mg/L Complement C3 (88.0-165.0) mg/dL Complement C4 (14.0-44.0) mg/dL Ur L.pneumophila Ag (NEGATIVE) 06/19/17 06/19/17 06/19/17 Range/Units 20:57 17:05 17:05 WBC (4.8-10.8) K/uL RBC (4.40-5.90) Mil/uL Hgb (12.0-18.0) g/dL Hct (35.0-51.0) % MCV (80.0-94.0) fL MCH (27.0-31.0) pg MCHC (33.0-37.0) g/dL RDW (11.5-14.5) % Plt Count (130-400) K/uL MPV (7.2-11.7) fL Neut % (Auto) (50.0-75.0) % Lymph % (Auto) (20.0-40.0) % [place] % (Auto) (0.0-10.0) % Eos % (Auto) (0.0-4.0) % Baso % (Auto) (0.0-2.0) % Neut # (1.8-7.0) K/uL Lymph # (1.0-4.3) K/uL [place] # (0.0-0.8) K/uL Eos # (0.0-0.7) K/uL Baso # (0.0-0.2) K/uL Neutrophils % (Manual) (50-75) % Band Neutrophils % (0-2) % Lymphocytes % (Manual) (20-40) % Monocytes % (Manual) (0-10) % Eosinophils % (Manual) (0-4) % Platelet Estimate (NORMAL) Polychromasia Hypochromasia (manual) Poikilocytosis (manual Anisocytosis (manual) Microcytosis (manual) Macrocytosis (manual) Target Cells Ovalocytes Ze Cells PT (9.7-12.2) SECONDS INR APTT (21-34) SECONDS Fibrinogen (200-400) mg/dL D-Dimer, Quantitative (0-243) ng/mlDDU Sodium (132-148) mmol/L Potassium (3.6-5.2) mmol/L Chloride (98-107) mmol/L Carbon Dioxide (22-30) mmol/L Anion Gap (10-20) BUN (9-20) mg/dL Creatinine (0.8-1.5) mg/dL Est GFR ( Amer) Est GFR (Non-Af Amer) POC Glucose (mg/dL) 114 H (65-110) mg/dL Random Glucose (75-110) mg/dL Lactic Acid 3.7 H (0.7-2.1) mmol/L Calcium (8.6-10.4) mg/dl Phosphorus (2.5-4.5) mg/dL Magnesium (1.6-2.3) mg/dL Total Bilirubin (0.2-1.3) mg/dL AST (17-59) U/L ALT (21-72) U/L Alkaline Phosphatase (38-126) U/L Ammonia (9-33) umol/L Total Protein (6.3-8.3) g/dL Albumin (3.5-5.0) g/dL Globulin (2.2-3.9) gm/dL Albumin/Globulin Ratio (1.0-2.1) Carcinoembryonic Ag (0-3.0) ng/mL Urine Color (YELLOW) Urine Clarity (Clear) Urine pH (5.0-8.0) Ur Specific [place] (1.003-1.030) Urine Protein (NEGATIVE) mg/dL Urine Glucose (UA) (Normal) mg/dL Urine Ketones (NEGATIVE) mg/dL Urine Blood (NEGATIVE) Urine Nitrate (NEGATIVE) Urine Bilirubin (NEGATIVE) Urine Urobilinogen (0.2-1.0) mg/dL Ur Leukocyte Esterase (Negative) Nyasia/uL Urine WBC (Auto) (0-5) /hpf Urine RBC (Auto) (0-3) /hpf Urine WBC Clumps (Auto) (NONE) /hpf Ur Squamous Epith Cells (0-5) /hpf Calcium Oxalate Crystal (<OCC) /hpf Urine Bacteria (<OCC) Hyaline Casts (0-2) /lpf Ur Random Creatinine mg/dL U Random Total Protein Urine Microalbumin (0.0-16.6) mg/L Complement C3 < 40.0 L (88.0-165.0) mg/dL Complement C4 8.3 L (14.0-44.0) mg/dL Ur L.pneumophila Ag (NEGATIVE) 06/19/17 06/19/17 06/19/17 Range/Units 17:05 16:06 16:00 WBC (4.8-10.8) K/uL RBC (4.40-5.90) Mil/uL Hgb (12.0-18.0) g/dL Hct (35.0-51.0) % MCV (80.0-94.0) fL MCH (27.0-31.0) pg MCHC (33.0-37.0) g/dL RDW (11.5-14.5) % Plt Count (130-400) K/uL MPV (7.2-11.7) fL Neut % (Auto) (50.0-75.0) % Lymph % (Auto) (20.0-40.0) % [place] % (Auto) (0.0-10.0) % Eos % (Auto) (0.0-4.0) % Baso % (Auto) (0.0-2.0) % Neut # (1.8-7.0) K/uL Lymph # (1.0-4.3) K/uL [place] # (0.0-0.8) K/uL Eos # (0.0-0.7) K/uL Baso # (0.0-0.2) K/uL Neutrophils % (Manual) (50-75) % Band Neutrophils % (0-2) % Lymphocytes % (Manual) (20-40) % Monocytes % (Manual) (0-10) % Eosinophils % (Manual) (0-4) % Platelet Estimate (NORMAL) Polychromasia Hypochromasia (manual) Poikilocytosis (manual Anisocytosis (manual) Microcytosis (manual) Macrocytosis (manual) Target Cells Ovalocytes [place] Cells PT (9.7-12.2) SECONDS INR APTT (21-34) SECONDS Fibrinogen 161 L (200-400) mg/dL D-Dimer, Quantitative 2867 H (0-243) ng/mlDDU Sodium (132-148) mmol/L Potassium (3.6-5.2) mmol/L Chloride (98-107) mmol/L Carbon Dioxide (22-30) mmol/L Anion Gap (10-20) BUN (9-20) mg/dL Creatinine (0.8-1.5) mg/dL Est GFR ( Amer) Est GFR (Non-Af Amer) POC Glucose (mg/dL) 109 (65-110) mg/dL Random Glucose (75-110) mg/dL Lactic Acid (0.7-2.1) mmol/L Calcium (8.6-10.4) mg/dl Phosphorus (2.5-4.5) mg/dL Magnesium (1.6-2.3) mg/dL Total Bilirubin (0.2-1.3) mg/dL AST (17-59) U/L ALT (21-72) U/L Alkaline Phosphatase (38-126) U/L Ammonia (9-33) umol/L Total Protein (6.3-8.3) g/dL Albumin (3.5-5.0) g/dL Globulin (2.2-3.9) gm/dL Albumin/Globulin Ratio (1.0-2.1) Carcinoembryonic Ag (0-3.0) ng/mL Urine Color (YELLOW) Urine Clarity (Clear) Urine pH (5.0-8.0) Ur Specific [place] (1.003-1.030) Urine Protein (NEGATIVE) mg/dL Urine Glucose (UA) (Normal) mg/dL Urine Ketones (NEGATIVE) mg/dL Urine Blood (NEGATIVE) Urine Nitrate (NEGATIVE) Urine Bilirubin (NEGATIVE) Urine Urobilinogen (0.2-1.0) mg/dL Ur Leukocyte Esterase (Negative) Nyasia/uL Urine WBC (Auto) (0-5) /hpf Urine RBC (Auto) (0-3) /hpf Urine WBC Clumps (Auto) (NONE) /hpf Ur Squamous Epith Cells (0-5) /hpf Calcium Oxalate Crystal (<OCC) /hpf Urine Bacteria (<OCC) Hyaline Casts (0-2) /lpf Ur Random Creatinine mg/dL U Random Total Protein 31.0 H Urine Microalbumin (0.0-16.6) mg/L Complement C3 (88.0-165.0) mg/dL Complement C4 (14.0-44.0) mg/dL Ur L.pneumophila Ag (NEGATIVE) 06/19/17 06/19/17 06/19/17 Range/Units 15:47 15:47 15:47 WBC (4.8-10.8) K/uL RBC (4.40-5.90) Mil/uL Hgb (12.0-18.0) g/dL Hct (35.0-51.0) % MCV (80.0-94.0) fL MCH (27.0-31.0) pg MCHC (33.0-37.0) g/dL RDW (11.5-14.5) % Plt Count (130-400) K/uL MPV (7.2-11.7) fL Neut % (Auto) (50.0-75.0) % Lymph % (Auto) (20.0-40.0) % [place] % (Auto) (0.0-10.0) % Eos % (Auto) (0.0-4.0) % Baso % (Auto) (0.0-2.0) % Neut # (1.8-7.0) K/uL Lymph # (1.0-4.3) K/uL [place] # (0.0-0.8) K/uL Eos # (0.0-0.7) K/uL Baso # (0.0-0.2) K/uL Neutrophils % (Manual) (50-75) % Band Neutrophils % (0-2) % Lymphocytes % (Manual) (20-40) % Monocytes % (Manual) (0-10) % Eosinophils % (Manual) (0-4) % Platelet Estimate (NORMAL) Polychromasia Hypochromasia (manual) Poikilocytosis (manual Anisocytosis (manual) Microcytosis (manual) Macrocytosis (manual) Target Cells Ovalocytes Ze Cells PT (9.7-12.2) SECONDS INR APTT (21-34) SECONDS Fibrinogen (200-400) mg/dL D-Dimer, Quantitative (0-243) ng/mlDDU Sodium (132-148) mmol/L Potassium (3.6-5.2) mmol/L Chloride (98-107) mmol/L Carbon Dioxide (22-30) mmol/L Anion Gap (10-20) BUN (9-20) mg/dL Creatinine (0.8-1.5) mg/dL Est GFR ( Amer) Est GFR (Non-Af Amer) POC Glucose (mg/dL) (65-110) mg/dL Random Glucose (75-110) mg/dL Lactic Acid (0.7-2.1) mmol/L Calcium (8.6-10.4) mg/dl Phosphorus (2.5-4.5) mg/dL Magnesium (1.6-2.3) mg/dL Total Bilirubin (0.2-1.3) mg/dL AST (17-59) U/L ALT (21-72) U/L Alkaline Phosphatase (38-126) U/L Ammonia (9-33) umol/L Total Protein (6.3-8.3) g/dL Albumin (3.5-5.0) g/dL Globulin (2.2-3.9) gm/dL Albumin/Globulin Ratio (1.0-2.1) Carcinoembryonic Ag (0-3.0) ng/mL Urine Color Yellow (YELLOW) Urine Clarity Hazy (Clear) Urine pH 5.0 (5.0-8.0) Ur Specific [place] 1.020 (1.003-1.030) Urine Protein 1+ H (NEGATIVE) mg/dL Urine Glucose (UA) Normal (Normal) mg/dL Urine Ketones Negative (NEGATIVE) mg/dL Urine Blood 3+ H (NEGATIVE) Urine Nitrate Negative (NEGATIVE) Urine Bilirubin Negative (NEGATIVE) Urine Urobilinogen Normal (0.2-1.0) mg/dL Ur Leukocyte Esterase 3+ H (Negative) [place]/uL Urine WBC (Auto) 49 H (0-5) /hpf Urine RBC (Auto) 29 H (0-3) /hpf Urine WBC Clumps (Auto) Rare H (NONE) /hpf Ur Squamous Epith Cells 2 (0-5) /hpf Calcium Oxalate Crystal Occ H (<OCC) /hpf Urine Bacteria Rare (<OCC) Hyaline Casts >20 H (0-2) /lpf Ur Random Creatinine 193.0 mg/dL U Random Total Protein Cancelled Urine Microalbumin 105.1 H (0.0-16.6) mg/L Complement C3 (88.0-165.0) mg/dL Complement C4 (14.0-44.0) mg/dL Ur L.pneumophila Ag (NEGATIVE) 06/19/17 06/19/17 Range/Units 12:36 12:36 WBC (4.8-10.8) K/uL RBC (4.40-5.90) Mil/uL Hgb (12.0-18.0) g/dL Hct (35.0-51.0) % MCV (80.0-94.0) fL MCH (27.0-31.0) pg MCHC (33.0-37.0) g/dL RDW (11.5-14.5) % Plt Count (130-400) K/uL MPV (7.2-11.7) fL Neut % (Auto) (50.0-75.0) % Lymph % (Auto) (20.0-40.0) % [place] % (Auto) (0.0-10.0) % Eos % (Auto) (0.0-4.0) % Baso % (Auto) (0.0-2.0) % Neut # (1.8-7.0) K/uL Lymph # (1.0-4.3) K/uL [place] # (0.0-0.8) K/uL Eos # (0.0-0.7) K/uL Baso # (0.0-0.2) K/uL Neutrophils % (Manual) (50-75) % Band Neutrophils % (0-2) % Lymphocytes % (Manual) (20-40) % Monocytes % (Manual) (0-10) % Eosinophils % (Manual) (0-4) % Platelet Estimate (NORMAL) Polychromasia Hypochromasia (manual) Poikilocytosis (manual Anisocytosis (manual) Microcytosis (manual) Macrocytosis (manual) Target Cells Ovalocytes Ze Cells PT (9.7-12.2) SECONDS INR APTT (21-34) SECONDS Fibrinogen (200-400) mg/dL D-Dimer, Quantitative (0-243) ng/mlDDU Sodium (132-148) mmol/L Potassium (3.6-5.2) mmol/L Chloride (98-107) mmol/L Carbon Dioxide (22-30) mmol/L Anion Gap (10-20) BUN (9-20) mg/dL Creatinine (0.8-1.5) mg/dL Est GFR ( Amer) Est GFR (Non-Af Amer) POC Glucose (mg/dL) (65-110) mg/dL Random Glucose (75-110) mg/dL Lactic Acid (0.7-2.1) mmol/L Calcium (8.6-10.4) mg/dl Phosphorus (2.5-4.5) mg/dL Magnesium (1.6-2.3) mg/dL Total Bilirubin (0.2-1.3) mg/dL AST (17-59) U/L ALT (21-72) U/L Alkaline Phosphatase (38-126) U/L Ammonia (9-33) umol/L Total Protein (6.3-8.3) g/dL Albumin (3.5-5.0) g/dL Globulin (2.2-3.9) gm/dL Albumin/Globulin Ratio (1.0-2.1) Carcinoembryonic Ag 2.2 (0-3.0) ng/mL Urine Color (YELLOW) Urine Clarity (Clear) Urine pH (5.0-8.0) Ur Specific [place] (1.003-1.030) Urine Protein (NEGATIVE) mg/dL Urine Glucose (UA) (Normal) mg/dL Urine Ketones (NEGATIVE) mg/dL Urine Blood (NEGATIVE) Urine Nitrate (NEGATIVE) Urine Bilirubin (NEGATIVE) Urine Urobilinogen (0.2-1.0) mg/dL Ur Leukocyte Esterase (Negative) [place]/uL Urine WBC (Auto) (0-5) /hpf Urine RBC (Auto) (0-3) /hpf Urine WBC Clumps (Auto) (NONE) /hpf Ur Squamous Epith Cells (0-5) /hpf Calcium Oxalate Crystal (<OCC) /hpf Urine Bacteria (<OCC) Hyaline Casts (0-2) /lpf Ur Random Creatinine mg/dL U Random Total Protein Urine Microalbumin (0.0-16.6) mg/L Complement C3 (88.0-165.0) mg/dL Complement C4 (14.0-44.0) mg/dL Ur L.pneumophila Ag Negative (NEGATIVE) Laboratory Results - last 24 hr 06/19/17 06/19/17 06/19/17 12:36 12:36 15:47 WBC RBC Hgb Hct MCV MCH MCHC RDW Plt Count MPV Neut % (Auto) Lymph % (Auto) [place] % (Auto) Eos % (Auto) Baso % (Auto) Neut # Lymph # [place] # Eos # Baso # Neutrophils % (Manual) Band Neutrophils % Lymphocytes % (Manual) Monocytes % (Manual) Eosinophils % (Manual) Platelet Estimate Polychromasia Hypochromasia (manual) Poikilocytosis (manual Anisocytosis (manual) Microcytosis (manual) Macrocytosis (manual) Target Cells Ovalocytes Ze Cells PT INR APTT Fibrinogen D-Dimer, Quantitative Sodium Potassium Chloride Carbon Dioxide Anion Gap BUN Creatinine Est GFR ( Amer) Est GFR (Non-Af Amer) POC Glucose (mg/dL) Random Glucose Lactic Acid Calcium Phosphorus Magnesium Total Bilirubin AST ALT Alkaline Phosphatase Ammonia Total Protein Albumin Globulin Albumin/Globulin Ratio Carcinoembryonic Ag 2.2 Urine Color Yellow Urine Clarity Hazy Urine pH 5.0 Ur Specific [place] 1.020 Urine Protein 1+ H Urine Glucose (UA) Normal Urine Ketones Negative Urine Blood 3+ H Urine Nitrate Negative Urine Bilirubin Negative Urine Urobilinogen Normal Ur Leukocyte Esterase 3+ H Urine WBC (Auto) 49 H Urine RBC (Auto) 29 H Urine WBC Clumps (Auto) Rare H Ur Squamous Epith Cells 2 Calcium Oxalate Crystal Occ H Urine Bacteria Rare Hyaline Casts >20 H Ur Random Creatinine U Random Total Protein Urine Microalbumin Complement C3 Complement C4 Ur L.pneumophila Ag Negative 06/19/17 06/19/17 06/19/17 15:47 15:47 16:00 WBC RBC Hgb Hct MCV MCH MCHC RDW Plt Count MPV Neut % (Auto) Lymph % (Auto) [place] % (Auto) Eos % (Auto) Baso % (Auto) Neut # Lymph # [place] # Eos # Baso # Neutrophils % (Manual) Band Neutrophils % Lymphocytes % (Manual) Monocytes % (Manual) Eosinophils % (Manual) Platelet Estimate Polychromasia Hypochromasia (manual) Poikilocytosis (manual Anisocytosis (manual) Microcytosis (manual) Macrocytosis (manual) Target Cells Ovalocytes Ze Cells PT INR APTT Fibrinogen D-Dimer, Quantitative Sodium Potassium Chloride Carbon Dioxide Anion Gap BUN Creatinine Est GFR ( Amer) Est GFR (Non-Af Amer) POC Glucose (mg/dL) Random Glucose Lactic Acid Calcium Phosphorus Magnesium Total Bilirubin AST ALT Alkaline Phosphatase Ammonia Total Protein Albumin Globulin Albumin/Globulin Ratio Carcinoembryonic Ag Urine Color Urine Clarity Urine pH Ur Specific [place] Urine Protein Urine Glucose (UA) Urine Ketones Urine Blood Urine Nitrate Urine Bilirubin Urine Urobilinogen Ur Leukocyte Esterase Urine WBC (Auto) Urine RBC (Auto) Urine WBC Clumps (Auto) Ur Squamous Epith Cells Calcium Oxalate Crystal Urine Bacteria Hyaline Casts Ur Random Creatinine 193.0 U Random Total Protein Cancelled 31.0 H Urine Microalbumin 105.1 H Complement C3 Complement C4 Ur L.pneumophila Ag 06/19/17 06/19/17 06/19/17 16:06 17:05 17:05 WBC RBC Hgb Hct MCV MCH MCHC RDW Plt Count MPV Neut % (Auto) Lymph % (Auto) [place] % (Auto) Eos % (Auto) Baso % (Auto) Neut # Lymph # [place] # Eos # Baso # Neutrophils % (Manual) Band Neutrophils % Lymphocytes % (Manual) Monocytes % (Manual) Eosinophils % (Manual) Platelet Estimate Polychromasia Hypochromasia (manual) Poikilocytosis (manual Anisocytosis (manual) Microcytosis (manual) Macrocytosis (manual) Target Cells Ovalocytes Ze Cells PT INR APTT Fibrinogen 161 L D-Dimer, Quantitative 2867 H Sodium Potassium Chloride Carbon Dioxide Anion Gap BUN Creatinine Est GFR ( Amer) Est GFR (Non-Af Amer) POC Glucose (mg/dL) 109 Random Glucose Lactic Acid 3.7 H Calcium Phosphorus Magnesium Total Bilirubin AST ALT Alkaline Phosphatase Ammonia Total Protein Albumin Globulin Albumin/Globulin Ratio Carcinoembryonic Ag Urine Color Urine Clarity Urine pH Ur Specific [place] Urine Protein Urine Glucose (UA) Urine Ketones Urine Blood Urine Nitrate Urine Bilirubin Urine Urobilinogen Ur Leukocyte Esterase Urine WBC (Auto) Urine RBC (Auto) Urine WBC Clumps (Auto) Ur Squamous Epith Cells Calcium Oxalate Crystal Urine Bacteria Hyaline Casts Ur Random Creatinine U Random Total Protein Urine Microalbumin Complement C3 Complement C4 Ur L.pneumophila Ag 06/19/17 06/19/17 06/20/17 17:05 20:57 07:12 WBC RBC Hgb Hct MCV MCH MCHC RDW Plt Count MPV Neut % (Auto) Lymph % (Auto) [place] % (Auto) Eos % (Auto) Baso % (Auto) Neut # Lymph # [place] # Eos # Baso # Neutrophils % (Manual) Band Neutrophils % Lymphocytes % (Manual) Monocytes % (Manual) Eosinophils % (Manual) Platelet Estimate Polychromasia Hypochromasia (manual) Poikilocytosis (manual Anisocytosis (manual) Microcytosis (manual) Macrocytosis (manual) Target Cells Ovalocytes Ze Cells PT INR APTT Fibrinogen D-Dimer, Quantitative Sodium Potassium Chloride Carbon Dioxide Anion Gap BUN Creatinine Est GFR ( Amer) Est GFR (Non-Af Amer) POC Glucose (mg/dL) 114 H 89 Random Glucose Lactic Acid Calcium Phosphorus Magnesium Total Bilirubin AST ALT Alkaline Phosphatase Ammonia Total Protein Albumin Globulin Albumin/Globulin Ratio Carcinoembryonic Ag Urine Color Urine Clarity Urine pH Ur Specific [place] Urine Protein Urine Glucose (UA) Urine Ketones Urine Blood Urine Nitrate Urine Bilirubin Urine Urobilinogen Ur Leukocyte Esterase Urine WBC (Auto) Urine RBC (Auto) Urine WBC Clumps (Auto) Ur Squamous Epith Cells Calcium Oxalate Crystal Urine Bacteria Hyaline Casts Ur Random Creatinine U Random Total Protein Urine Microalbumin Complement C3 < 40.0 L Complement C4 8.3 L Ur L.pneumophila Ag 06/20/17 06/20/17 06/20/17 07:15 07:15 07:15 WBC 16.5 H RBC 2.55 L Hgb 9.0 L Hct 26.6 L MCV 104.3 H MCH 35.3 H MCHC 33.8 RDW 20.5 H Plt Count 65 L D MPV 9.4 Neut % (Auto) 85.3 H Lymph % (Auto) 6.6 L [place] % (Auto) 7.5 Eos % (Auto) 0.3 Baso % (Auto) 0.3 Neut # 14.1 H Lymph # 1.1 [place] # 1.2 H Eos # 0.0 Baso # 0.1 Neutrophils % (Manual) 84 H Band Neutrophils % 2 Lymphocytes % (Manual) 10 L Monocytes % (Manual) 3 Eosinophils % (Manual) 1 Platelet Estimate Decreased L Polychromasia Slight Hypochromasia (manual) Slight Poikilocytosis (manual Slight Anisocytosis (manual) Slight Microcytosis (manual) Slight Macrocytosis (manual) Slight Target Cells Slight Ovalocytes Slight [place] Cells Slight PT INR APTT Fibrinogen D-Dimer, Quantitative Sodium 126 L Potassium 5.0 Chloride 94 L Carbon Dioxide 22 Anion Gap 15 BUN 77 H Creatinine 3.5 H Est GFR ( Amer) 22 Est GFR (Non-Af Amer) 18 POC Glucose (mg/dL) Random Glucose 93 Lactic Acid Calcium 7.6 L Phosphorus 6.1 H Magnesium 2.1 Total Bilirubin 5.1 H AST 20 ALT 29 Alkaline Phosphatase 41 Ammonia 21 D Total Protein 5.6 L Albumin 2.3 L Globulin 3.4 Albumin/Globulin Ratio 0.7 L Carcinoembryonic Ag Urine Color Urine Clarity Urine pH Ur Specific [place] Urine Protein Urine Glucose (UA) Urine Ketones Urine Blood Urine Nitrate Urine Bilirubin Urine Urobilinogen Ur Leukocyte Esterase Urine WBC (Auto) Urine RBC (Auto) Urine WBC Clumps (Auto) Ur Squamous Epith Cells Calcium Oxalate Crystal Urine Bacteria Hyaline Casts Ur Random Creatinine U Random Total Protein Urine Microalbumin Complement C3 Complement C4 Ur L.pneumophila Ag 06/20/17 06/20/17 07:15 11:17 WBC RBC Hgb Hct MCV MCH MCHC RDW Plt Count MPV Neut % (Auto) Lymph % (Auto) [place] % (Auto) Eos % (Auto) Baso % (Auto) Neut # Lymph # [place] # Eos # Baso # Neutrophils % (Manual) Band Neutrophils % Lymphocytes % (Manual) Monocytes % (Manual) Eosinophils % (Manual) Platelet Estimate Polychromasia Hypochromasia (manual) Poikilocytosis (manual Anisocytosis (manual) Microcytosis (manual) Macrocytosis (manual) Target Cells Ovalocytes [place] Cells PT 25.0 H INR 2.2 APTT 71 H Fibrinogen D-Dimer, Quantitative Sodium Potassium Chloride Carbon Dioxide Anion Gap BUN Creatinine Est GFR ( Amer) Est GFR (Non-Af Amer) POC Glucose (mg/dL) 97 Random Glucose Lactic Acid Calcium Phosphorus Magnesium Total Bilirubin AST ALT Alkaline Phosphatase Ammonia Total Protein Albumin Globulin Albumin/Globulin Ratio Carcinoembryonic Ag Urine Color Urine Clarity Urine pH Ur Specific [place] Urine Protein Urine Glucose (UA) Urine Ketones Urine Blood Urine Nitrate Urine Bilirubin Urine Urobilinogen Ur Leukocyte Esterase Urine WBC (Auto) Urine RBC (Auto) Urine WBC Clumps (Auto) Ur Squamous Epith Cells Calcium Oxalate Crystal Urine Bacteria Hyaline Casts Ur Random Creatinine U Random Total Protein Urine Microalbumin Complement C3 Complement C4 Ur L.pneumophila Ag Critical Care Progress Note - Nutrition Nutrition: Nutrition Category Date Time Status Renal Diet [DIET] Diets 06/18/17 Dinner Active Attending/Attestation - Attestation I have personally seen and examined this patient.: Yes I have fully participated in the care of the patient.: Yes I have reviewed all pertinent clinical information: Yes Notes (Text): 06/20/17 15:09 patient seen and examined. Case discussed with house staff in the morning rounds Status post thoracentesis with reaccumulation of fluid IR for paracentesis Transfer to floor Palliative consult
--- NOTE | 2017-06-20 12:02 | CP.PCM.PN ---
Subjective - Date & Time of Evaluation Date of Evaluation: 06/20/17 Time of Evaluation: 12:00 - Subjective Subjective: Hospitalist Covering for Dr. Magy Deng Patient was seen and examined at 12:00 PM 06/20/17 ICU Bed #15 57 year old male who was admitted to ICU on 06/18/17 after he fell at his [facility]. His history is as indicated below in the Assessment and Plans. This is his 7th admission to [facility] since March 2017. Patient today states "NO" to everything upon FULL ROS He believes he is here because of issues with his living status but can not provide information as to where he lives and is not aware of his Liver Failure and Renal Failure He believes it is June 2017 but knows that the president is T[place] Exam: HEENT: NCA, EOMI, PERRLA, NO cervical lymphadenopathy, NO thyromegaly, Mucous Membranes are dry Cardio: NS1 and NS2, NO M/R/G Resp: Decreased breath sounds diffusely GI: BSx4 are decresed, Distention is present, Tender to palpation diffusely without rebound/guarding, Liver and Spleen could not be palpated. Ext: Pulses are strong and eqal, Capillary Refill is 2 seconds, NO edema Neuro: CNII through XII are grossly intact Assessment & Plan - Assessment and Plan (Free Text) Plan: 1. Status post fall - CT Head no acute changes - Hip/pelvis xray- no acute fractures/dislocations; MRI to determine occult fracturs - F/U PT/OT evaluation 2. Leukocytosis Secondary to possible PNA; Consider sepsis; Consider Bacterial Peritonitis - WBC elevated but declining - EKG- normal - Lactate elevated 06/19/17 at 3.7 but is declining - Blood Culture 06/18/17: negative to date - Urine Culture 06/18/17: no growth - CXR 06/18/17:Worsening complete opacification of L hemithorax, consolidation vs pleural effusion. - CXR 06/19/17: LLE pneumonia and worsening moderate left pleural effusion * Zosyn 2.25 gm IV Q6H * Vancomycin 1 gm IV 1x/day started 06/20/17 * F/U Vancomycin Trough 06/23/17 at 12 PM - CT Chest 06/18/17: large left pleural effusion with compressive atelectasis - Left-sided vianca-hydrothorax; L thoacocentesis done in ED 06/18/17: WBC 2052 [id number] Neutrophils 81 Lymphocytes 16 Monocytes/Macrophages 3 Total cell count 100 - Left Pleural Fluid Culture 06/18/17 is negative - Will need Paracentesis and IR has been consulted Dr. Roma Pham who is onshore diver - F/U Urine Legionella, Urine Strep pneumoniae, Mycoplasma, Rapid Strep - Zosyn- 2.25g q6hrs (renally dosed) and this should cover the possibility of Bacterial Peritonitis - Critical care consult- Dr. Fortune - ID consult- Dr. Geronimo 3. Hepatic Encephalopathy - Chronic liver cirrhosis patient with previous admission for AMS. As per Dr. Deng, pt is non-compliant with lactulose as well as other medications - Ammonia: 111 - Albumin 1.8 - INR2.1 - GI consult: Dr. Marcum - Lactulose 20mg q6hrs - Xifaxan 550 m gPO 2x/day 4. MICHELINE on CKD Stage III - Baseline creatinine on previous admission was 1.5. Currently 06/20/17 it is 3.5 - Patient was receiving NSAIDs at [facility] - Hold diuretic Aldactone considering the worsening Kidney Function and the low blood pressure - Nephrology Consult- Dr. Mao- recs appreciated Albumin 12g IV two times given upon admission 5. Hypoglycemia - Resolved 6. Hyperkalemia - Could have been secondary to the Aldactone -Resolved 7. HTN - Propranolol and Aldactone are being held secondary to the low blood pressure - Patient is Hypotensive and would not allow Central Line or EJ for pressor administration on 06/19/17 and therefore was started on Midodrine 7.5 mg PO Q8H and his blood pressure is currently stable 8. Meningioma - Stable from previous hospitalizations - Head CT 06/18: left sphenoid wing meningioma 2.3cm x 2.9cm x 2.6cm with extensive edema extending to multiple areas. Minimal midline shift. - Keppra 500 mg PO 2x/day 9. 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 Hx of syphilis - Completed treatment with doxycycline 11. 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 Marcum has ordered Neomycin 500 mg PO Q6H - F/U workup ordered by Dr. Marcum: [id number], CEA, Alpha Feto Protein - F/U IR evaluation for Paracentesis: I spoke with Nurse Monge 06/20/17 and he will reach to both Dr. Pham and Dr. Dr. Carroll 12. Nicotine Addiction - Nicotine Patch 14 mg TD 1x/day 13. Low platelets, Elevated INR/PTT/PT, Low Fibrinogen, Elevated D-Dimer This could be due to DIC secondary to Sepsis/Pneumonia vs. Liver Disease I will NOT workup patient for PE or DVT considering that if these are postive, I can not anticoagulate patient considering the anemia and low platelets 14. Prophylaxis - Protonix 40 PO daily - Renal diet - Anticoagulation held: INR 2.1 - Renal diet 06/20/17: I spoke with Palliative Care Nurse Johan who is familiar with patient. She spoke with Palliative Care Nurse Kiley at [facility] who informed her that patient is homeless and has NO next of kin to make decisions on his behalf. Considering the above, patient has a very poor prognosis. Warren Koroma D.O. Objective - Vital Signs/Intake and Output Vital Signs (last 24 hours): Temp Pulse Resp BP Pulse Ox 97.8 F 77 20 92/35 L 98 06/20/17 08:00 06/20/17 07:22 06/20/17 07:22 06/20/17 07:22 06/20/17 07:22 Intake and Output: 06/20/17 06/20/17 06:59 18:59 Intake Total 780.0 50 Output Total 200 Balance 580.0 50 - Medications Medications: Current Medications Ferrous Sulfate (Feosol) 325 mg PO BID [facility] Last Admin: 06/20/17 10:44 Dose: 325 mg Piperacillin Sod/Tazobactam Sod (Zosyn 2.25 Gm Iv Premix) 2.25 gm in 50 mls @ 100 mls/hr IVPB Q6H [facility] Last Admin: 06/20/17 08:13 Dose: 100 mls/hr Sodium Bicarbonate 150 meq/ (Dextrose) 1,000 mls @ 45 mls/hr IV .[id number] [facility] Last Admin: 06/19/17 17:00 Dose: 45 mls/hr Lactulose (Enulose) 20 gm PO Q6H [facility] Last Admin: 06/20/17 09:00 Dose: Not Given Levetiracetam (Keppra) 500 mg PO BID [facility] Last Admin: 06/20/17 10:44 Dose: 500 mg Midodrine (Proamatine) 7.5 mg PO Q8H [facility] Last Admin: 06/20/17 08:12 Dose: 7.5 mg Neomycin Sulfate (Neomycin Tab) 500 mg PO Q6 [facility] Last Admin: 06/20/17 11:00 Dose: 500 mg Nicotine (Nicoderm Cq) 1 patch TD DAILY [facility] Last Admin: 06/20/17 10:44 Dose: 1 patch Octreotide Acetate (Sandostatin) 100 mcg SC Q8H [facility] Last Admin: 06/20/17 08:13 Dose: 100 mcg Pantoprazole Sodium (Protonix Ec Tab) 40 mg PO DAILY [facility] Last Admin: 06/20/17 10:44 Dose: 40 mg Propranolol HCl (Inderal) 10 mg PO TID [facility] Last Admin: 06/19/17 14:00 Dose: Not Given Rifaximin (Xifaxan) 550 mg PO BID [facility] Last Admin: 06/20/17 10:44 Dose: 550 mg Saccharomyces Boulardii (Florastor) 250 mg PO BID [facility] Last Admin: 06/20/17 10:44 Dose: 250 mg - Labs Labs: 06/20/17 07:15 06/20/17 07:15 PT 25.0 SECONDS (9.7-12.2) H 06/20/17 07:15 INR 2.2 06/20/17 07:15 APTT 71 SECONDS (21-34) H 06/20/17 07:15
[2017-06-20] MEDS ORDERED: Vancomycin 1 GM in Sodium Chloride 0.9% 200 ML IVPB SCH (13:00)
--- NOTE | 2017-06-20 14:14 | CP.PCM.CON ---
History of Present Illness - History of Present Illness History of Present Illness: Palliative consult requested for comfort care discussion Patient is a 57 yo male admitted from [facility] S/P fall in the bathroom. Patient recalls hitting the right side of his head. No visible injuries there. 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 chest was significant for large left pleural effusion and liver cirrhosis. Ammonia level was 152 on admission and dropped to 21 today. Hepatic encephalopathy diagnosed. The treatment with Lactulose and Neomycin continues. PMH: anemia, anxiety, HTN, paracentesis, hep C Soc. Hx: single, denies having family and friends Fam. Hx: unknown Review of Systems - Review of Systems All systems: reviewed and no additional remarkable complaints except Review of Systems: Per nursing, patient has been confused since the admission Past Patient History - Infectious Disease Hx of Infectious Diseases: None - Past Medical History & Family History Past Medical History?: Yes - Past Social History Smoking Status: Never Smoked - CARDIAC Hx Hypercholesterolemia: Yes Hx Hypertension: Yes - PULMONARY Hx Respiratory Disorders: No - NEUROLOGICAL Hx Neurological Disorder: No - HEENT Hx HEENT Problems: No - RENAL Hx Chronic Kidney Disease: No - ENDOCRINE/METABOLIC Hx Endocrine Disorders: No - HEMATOLOGICAL/ONCOLOGICAL Hx Anemia: Yes - INTEGUMENTARY Hx Dermatological Problems: No - MUSCULOSKELETAL/RHEUMATOLOGICAL Hx Arthritis: Yes - GASTROINTESTINAL Hx Gastrointestinal Disorders: Yes Hx Liver Failure: Yes (HX:"ALCOHOLOIC CIRRHOSIS OF LIVER") Other/Comment: HX: ASCITIES - GENITOURINARY/GYNECOLOGICAL Hx Genitourinary Disorders: No - PSYCHIATRIC Hx Anxiety: Yes Hx Substance Use: Yes - SURGICAL HISTORY Hx Surgeries: No - ANESTHESIA Hx Anesthesia: No Meds Allergies/Adverse Reactions: Allergies Allergy/AdvReac Type Severity Reaction Status Date / Time No Known Allergies Allergy Verified 06/18/17 09:22 - Medications Medications: Current Medications Albumin Human (Albumin Human 25% (12.5 Gm/50 Ml)) 12.5 gm IV Q4H [facility] Stop: 06/21/17 08:46 Last Admin: 06/20/17 13:34 Dose: 12.5 gm Ferrous Sulfate (Feosol) 325 mg PO BID [facility] Last Admin: 06/20/17 10:44 Dose: 325 mg Piperacillin Sod/Tazobactam Sod (Zosyn 2.25 Gm Iv Premix) 2.25 gm in 50 mls @ 100 mls/hr IVPB Q6H [facility] Last Admin: 06/20/17 08:13 Dose: 100 mls/hr Vancomycin HCl 1 gm/ Sodium (Chloride) 200 mls @ 166.7 mls/hr IVPB Q24H [facility] Last Admin: 06/20/17 13:32 Dose: 166.7 mls/hr Lactulose (Enulose) 20 gm PO Q6H [facility] Last Admin: 06/20/17 09:00 Dose: Not Given Levetiracetam (Keppra) 500 mg PO BID [facility] Last Admin: 06/20/17 10:44 Dose: 500 mg Midodrine (Proamatine) 10 mg PO Q8H [facility] Last Admin: 06/20/17 13:32 Dose: 10 mg Neomycin Sulfate (Neomycin Tab) 500 mg PO Q6 [facility] Last Admin: 06/20/17 11:00 Dose: 500 mg Nicotine (Nicoderm Cq) 1 patch TD DAILY [facility] Last Admin: 06/20/17 10:44 Dose: 1 patch Octreotide Acetate (Sandostatin) 100 mcg SC Q8H [facility] Last Admin: 06/20/17 08:13 Dose: 100 mcg Pantoprazole Sodium (Protonix Ec Tab) 40 mg PO DAILY [facility] Last Admin: 06/20/17 10:44 Dose: 40 mg Propranolol HCl (Inderal) 10 mg PO TID [facility] Last Admin: 06/19/17 14:00 Dose: Not Given Rifaximin (Xifaxan) 550 mg PO BID [facility] Last Admin: 06/20/17 10:44 Dose: 550 mg Saccharomyces Boulardii (Florastor) 250 mg PO BID [facility] Last Admin: 06/20/17 10:44 Dose: 250 mg Physical Exam - Constitutional Appears: Chronically Ill - Head Exam Head Exam: ATRAUMATIC, NORMAL INSPECTION, NORMOCEPHALIC - Eye Exam Eye Exam: EOMI, Normal appearance, PERRL Pupil Exam: NORMAL ACCOMODATION, PERRL - ENT Exam ENT Exam: Mucous Membranes Dry - Neck Exam Neck exam: Positive for: Normal Inspection - Respiratory Exam Respiratory Exam: Decreased Breath Sounds, NORMAL BREATHING PATTERN - Cardiovascular Exam Cardiovascular Exam: Tachycardia, REGULAR RHYTHM - GI/Abdominal Exam GI & Abdominal Exam: Diminished Bowel Sounds, Distended, Firm, Rigid - Rectal Exam Rectal Exam: Deferred - Exam Additional comments: Bosch cath - Extremities Exam Extremities exam: Positive for: pedal edema - Back Exam Back exam: NORMAL INSPECTION - Neurological Exam Neurological exam: Alert, Altered - Psychiatric Exam Psychiatric exam: Flat Affect - Skin Skin Exam: Pallor Results - Vital Signs Recent Vital Signs: Last Vital Signs Temp 98.2 F 06/20/17 12:00 Pulse 75 06/20/17 12:22 Resp 18 06/20/17 12:22 BP 104/50 L 06/20/17 12:22 Pulse Ox 98 06/20/17 12:22 - Labs Result Diagrams: 06/20/17 07:15 06/20/17 07:15 Labs: Laboratory Results - last 24 hr 06/19/17 06/19/17 06/19/17 12:36 15:47 15:47 WBC RBC Hgb Hct MCV MCH MCHC RDW Plt Count MPV Neut % (Auto) Lymph % (Auto) [place] % (Auto) Eos % (Auto) Baso % (Auto) Neut # Lymph # [place] # Eos # Baso # Neutrophils % (Manual) Band Neutrophils % Lymphocytes % (Manual) Monocytes % (Manual) Eosinophils % (Manual) Platelet Estimate Polychromasia Hypochromasia (manual) Poikilocytosis (manual Anisocytosis (manual) Microcytosis (manual) Macrocytosis (manual) Target Cells Ovalocytes Ze Cells PT INR APTT Fibrinogen D-Dimer, Quantitative Sodium Potassium Chloride Carbon Dioxide Anion Gap BUN Creatinine Est GFR ( Amer) Est GFR (Non-Af Amer) POC Glucose (mg/dL) Random Glucose Lactic Acid Calcium Phosphorus Magnesium Total Bilirubin AST ALT Alkaline Phosphatase Ammonia Total Protein Albumin Globulin Albumin/Globulin Ratio Carcinoembryonic Ag 2.2 Urine Color Yellow Urine Clarity Hazy Urine pH 5.0 Ur Specific [place] 1.020 Urine Protein 1+ H Urine Glucose (UA) Normal Urine Ketones Negative Urine Blood 3+ H Urine Nitrate Negative Urine Bilirubin Negative Urine Urobilinogen Normal Ur Leukocyte Esterase 3+ H Urine WBC (Auto) 49 H Urine RBC (Auto) 29 H Urine WBC Clumps (Auto) Rare H Ur Squamous Epith Cells 2 Calcium Oxalate Crystal Occ H Urine Bacteria Rare Hyaline Casts >20 H Ur Random Creatinine U Random Total Protein Urine Microalbumin 105.1 H Complement C3 Complement C4 06/19/17 06/19/17 06/19/17 15:47 16:00 16:06 WBC RBC Hgb Hct MCV MCH MCHC RDW Plt Count MPV Neut % (Auto) Lymph % (Auto) [place] % (Auto) Eos % (Auto) Baso % (Auto) Neut # Lymph # [place] # Eos # Baso # Neutrophils % (Manual) Band Neutrophils % Lymphocytes % (Manual) Monocytes % (Manual) Eosinophils % (Manual) Platelet Estimate Polychromasia Hypochromasia (manual) Poikilocytosis (manual Anisocytosis (manual) Microcytosis (manual) Macrocytosis (manual) Target Cells Ovalocytes Ze Cells PT INR APTT Fibrinogen D-Dimer, Quantitative Sodium Potassium Chloride Carbon Dioxide Anion Gap BUN Creatinine Est GFR ( Amer) Est GFR (Non-Af Amer) POC Glucose (mg/dL) 109 Random Glucose Lactic Acid Calcium Phosphorus Magnesium Total Bilirubin AST ALT Alkaline Phosphatase Ammonia Total Protein Albumin Globulin Albumin/Globulin Ratio Carcinoembryonic Ag Urine Color Urine Clarity Urine pH Ur Specific [place] Urine Protein Urine Glucose (UA) Urine Ketones Urine Blood Urine Nitrate Urine Bilirubin Urine Urobilinogen Ur Leukocyte Esterase Urine WBC (Auto) Urine RBC (Auto) Urine WBC Clumps (Auto) Ur Squamous Epith Cells Calcium Oxalate Crystal Urine Bacteria Hyaline Casts Ur Random Creatinine 193.0 U Random Total Protein Cancelled 31.0 H Urine Microalbumin Complement C3 Complement C4 06/19/17 06/19/17 06/19/17 17:05 17:05 17:05 WBC RBC Hgb Hct MCV MCH MCHC RDW Plt Count MPV Neut % (Auto) Lymph % (Auto) [place] % (Auto) Eos % (Auto) Baso % (Auto) Neut # Lymph # [place] # Eos # Baso # Neutrophils % (Manual) Band Neutrophils % Lymphocytes % (Manual) Monocytes % (Manual) Eosinophils % (Manual) Platelet Estimate Polychromasia Hypochromasia (manual) Poikilocytosis (manual Anisocytosis (manual) Microcytosis (manual) Macrocytosis (manual) Target Cells Ovalocytes [place] Cells PT INR APTT Fibrinogen 161 L D-Dimer, Quantitative 2867 H Sodium Potassium Chloride Carbon Dioxide Anion Gap BUN Creatinine Est GFR ( Amer) Est GFR (Non-Af Amer) POC Glucose (mg/dL) Random Glucose Lactic Acid 3.7 H Calcium Phosphorus Magnesium Total Bilirubin AST ALT Alkaline Phosphatase Ammonia Total Protein Albumin Globulin Albumin/Globulin Ratio Carcinoembryonic Ag Urine Color Urine Clarity Urine pH Ur Specific [place] Urine Protein Urine Glucose (UA) Urine Ketones Urine Blood Urine Nitrate Urine Bilirubin Urine Urobilinogen Ur Leukocyte Esterase Urine WBC (Auto) Urine RBC (Auto) Urine WBC Clumps (Auto) Ur Squamous Epith Cells Calcium Oxalate Crystal Urine Bacteria Hyaline Casts Ur Random Creatinine U Random Total Protein Urine Microalbumin Complement C3 < 40.0 L Complement C4 8.3 L 06/19/17 06/20/17 06/20/17 20:57 07:12 07:15 WBC 16.5 H RBC 2.55 L Hgb 9.0 L Hct 26.6 L MCV 104.3 H MCH 35.3 H MCHC 33.8 RDW 20.5 H Plt Count 65 L D MPV 9.4 Neut % (Auto) 85.3 H Lymph % (Auto) 6.6 L [place] % (Auto) 7.5 Eos % (Auto) 0.3 Baso % (Auto) 0.3 Neut # 14.1 H Lymph # 1.1 [place] # 1.2 H Eos # 0.0 Baso # 0.1 Neutrophils % (Manual) 84 H Band Neutrophils % 2 Lymphocytes % (Manual) 10 L Monocytes % (Manual) 3 Eosinophils % (Manual) 1 Platelet Estimate Decreased L Polychromasia Slight Hypochromasia (manual) Slight Poikilocytosis (manual Slight Anisocytosis (manual) Slight Microcytosis (manual) Slight Macrocytosis (manual) Slight Target Cells Slight Ovalocytes Slight [place] Cells Slight PT INR APTT Fibrinogen D-Dimer, Quantitative Sodium Potassium Chloride Carbon Dioxide Anion Gap BUN Creatinine Est GFR ( Amer) Est GFR (Non-Af Amer) POC Glucose (mg/dL) 114 H 89 Random Glucose Lactic Acid Calcium Phosphorus Magnesium Total Bilirubin AST ALT Alkaline Phosphatase Ammonia Total Protein Albumin Globulin Albumin/Globulin Ratio Carcinoembryonic Ag Urine Color Urine Clarity Urine pH Ur Specific [place] Urine Protein Urine Glucose (UA) Urine Ketones Urine Blood Urine Nitrate Urine Bilirubin Urine Urobilinogen Ur Leukocyte Esterase Urine WBC (Auto) Urine RBC (Auto) Urine WBC Clumps (Auto) Ur Squamous Epith Cells Calcium Oxalate Crystal Urine Bacteria Hyaline Casts Ur Random Creatinine U Random Total Protein Urine Microalbumin Complement C3 Complement C4 06/20/17 06/20/17 06/20/17 07:15 07:15 07:15 WBC RBC Hgb Hct MCV MCH MCHC RDW Plt Count MPV Neut % (Auto) Lymph % (Auto) [place] % (Auto) Eos % (Auto) Baso % (Auto) Neut # Lymph # [place] # Eos # Baso # Neutrophils % (Manual) Band Neutrophils % Lymphocytes % (Manual) Monocytes % (Manual) Eosinophils % (Manual) Platelet Estimate Polychromasia Hypochromasia (manual) Poikilocytosis (manual Anisocytosis (manual) Microcytosis (manual) Macrocytosis (manual) Target Cells Ovalocytes [place] Cells PT 25.0 H INR 2.2 APTT 71 H Fibrinogen D-Dimer, Quantitative Sodium 126 L Potassium 5.0 Chloride 94 L Carbon Dioxide 22 Anion Gap 15 BUN 77 H Creatinine 3.5 H Est GFR ( Amer) 22 Est GFR (Non-Af Amer) 18 POC Glucose (mg/dL) Random Glucose 93 Lactic Acid Calcium 7.6 L Phosphorus 6.1 H Magnesium 2.1 Total Bilirubin 5.1 H AST 20 ALT 29 Alkaline Phosphatase 41 Ammonia 21 D Total Protein 5.6 L Albumin 2.3 L Globulin 3.4 Albumin/Globulin Ratio 0.7 L Carcinoembryonic Ag Urine Color Urine Clarity Urine pH Ur Specific [place] Urine Protein Urine Glucose (UA) Urine Ketones Urine Blood Urine Nitrate Urine Bilirubin Urine Urobilinogen Ur Leukocyte Esterase Urine WBC (Auto) Urine RBC (Auto) Urine WBC Clumps (Auto) Ur Squamous Epith Cells Calcium Oxalate Crystal Urine Bacteria Hyaline Casts Ur Random Creatinine U Random Total Protein Urine Microalbumin Complement C3 Complement C4 06/20/17 11:17 WBC RBC Hgb Hct MCV MCH MCHC RDW Plt Count MPV Neut % (Auto) Lymph % (Auto) [place] % (Auto) Eos % (Auto) Baso % (Auto) Neut # Lymph # [place] # Eos # Baso # Neutrophils % (Manual) Band Neutrophils % Lymphocytes % (Manual) Monocytes % (Manual) Eosinophils % (Manual) Platelet Estimate Polychromasia Hypochromasia (manual) Poikilocytosis (manual Anisocytosis (manual) Microcytosis (manual) Macrocytosis (manual) Target Cells Ovalocytes Ze Cells PT INR APTT Fibrinogen D-Dimer, Quantitative Sodium Potassium Chloride Carbon Dioxide Anion Gap BUN Creatinine Est GFR ( Amer) Est GFR (Non-Af Amer) POC Glucose (mg/dL) 97 Random Glucose Lactic Acid Calcium Phosphorus Magnesium Total Bilirubin AST ALT Alkaline Phosphatase Ammonia Total Protein Albumin Globulin Albumin/Globulin Ratio Carcinoembryonic Ag Urine Color Urine Clarity Urine pH Ur Specific [place] Urine Protein Urine Glucose (UA) Urine Ketones Urine Blood Urine Nitrate Urine Bilirubin Urine Urobilinogen Ur Leukocyte Esterase Urine WBC (Auto) Urine RBC (Auto) Urine WBC Clumps (Auto) Ur Squamous Epith Cells Calcium Oxalate Crystal Urine Bacteria Hyaline Casts Ur Random Creatinine U Random Total Protein Urine Microalbumin Complement C3 Complement C4 Assessment & Plan - Assessment and Plan (Free Text) Assessment: Palliative consult Code status DNR/DNI, copy of POLST on chart, PPS 20% I reviewed medical records, all diagnostic studies, examined and interviewed patient in the bed . Patient is alert but altered. Looks chronically ill. Skin and sclera pale. Hb 9.0, platlst 65.He knew he was at [facility] but took him a long time to recall that he came from [facility]. Patient repeatedly complained of inability to urinate. Bosch cath and urine bag was shown to patient in reassurance. Breath sounds diminished, abdomen firm to touch, diminished bowel sounds, denies abdominal pain. There is pedal edema noted. Patient denies having any family or friends. As per [facility] [employer] from [facility], patient was admitted there as a halfway resident now. Prior to that, patient was homeless, lived in shelters, had serious problems with alcohol abuse , alcoholic liver disease with paracentesis. per [facility] [employer], patient has no family nor friends. Impression * This is a very sick man with End stage of liver disease * There is no acute distress in terms of abdominal pain or nausea * Distended abdomen due to ascites * Patient does not have ability to participate in goals of care discussion due to confusion * Unfortunately, in my opinion, this patient will most likely on this admission Suggestion * The primary goal in treating this patient should be his comfort * Would continue all prudent measures in order to promote comfort such as paracentesis, pain and nausea meds as needed and food of choice as tolerated * Agree with DNR/DNI * Comfort care under the Hospice would be the ideal level of care for this patient. However, given his AMS, patient is not able to consider Hospice care and agree to it. Therefore, I would continue current medical regimen Thank you very much for consulting Palliative care
--- NOTE | 2017-06-20 17:19 | CP.PCM.CON ---
History of Present Illness - History of Present Illness History of Present Illness: 56-year-old male with a history of end-stage liver disease, history of meningioma, history of anemia admitted to the hospital with not feeling well. [facility] and fall. iv antibiotics in progress Review of Systems - Review of Systems Systems not reviewed;Unavailable: Altered Mental Status - Constitutional Constitutional: As Per HPI - EENT Eyes: absent: As Per HPI, Blind Spots, Blurred Vision, Change in Vision, Decreased Night Vision, Diplopia, Discharge, Dry Eye, Exophthalmos, Floaters, Irritation, Itchy Eyes, Loss of Peripheral Vision, Pain, Photophobia, Requires Corrective Lenses, Sees Flashes, Spots in Vision, Tunnel Vision, Other Visual Disturbances, Loss of Vision, Other Ears: absent: As Per HPI, Decreased Hearing, Ear Discharge, Ear Pain, Tinnitus, Abnormal Hearing, Disequilibrium, Dizziness, Other Nose/Mouth/Throat: absent: As Per HPI, Epistaxis, Nasal Congestion, Nasal Discharge, Nasal Obstruction, Nasal Trauma, Nose Pain, Post Nasal Drip, Sinus Pain, Sinus Pressure, Bleeding Gums, Change in Voice, Dental Pain, Dry Mouth, Dysphagia, Halitosis, Hoarsness, Lip Swelling, Mouth Lesions, Mouth Pain, Odynophagia, Sore Throat, Throat Swelling, Tongue Swelling, Facial Pain, Neck Pain, Neck Mass, Other - Cardiovascular Cardiovascular: absent: As Per HPI, Acrocyanosis, Chest Pain, Chest Pain at Rest , Chest Pain with Activity, Claudication, Diaphoresis, Dyspnea, Dyspnea on Exertion, Edema, Irregular Heart Rhythm, Pain Radiating to Arm/Neck/Jaw, Leg Edema, Leg Ulcers, Lightheadedness, Orthopnea, Palpitations, Paroxysmal Nocturnal Dyspnea, Pedal Edema, Radiating Pain, Rapid Heart Rate, Slow Heart Rate, Syncope, Other - Respiratory Respiratory: absent: As Per HPI, Cough, Dyspnea, Hemoptysis, Dyspnea on Exertion , Wheezing, Snoring, Stridor, Pain on Inspiration, Chest Congestion, Excessive Mucous Production, Change in Mucous Color, Pain with Coughing, Other - Gastrointestinal Gastrointestinal: absent: As Per HPI, Abdominal Pain, Belching, Bloating, Change in Bowel Habits, Change in Stool Character, Coffee Ground Emesis, Constipation, Cramping, Diarrhea, Dyspepsia, Dysphagia, Early Satiety, Excessive Flatus, Fecal Incontinence, Heartburn, Hematemesis, Hematochezia, Loose Stools, Melena, Nausea, Odynophagia, Temesmus, Vomiting, Other - Genitourinary Genitourinary: absent: As Per HPI, Change in Urinary Stream, Difficulty Urinating, Dysuria, Flank Pain, Hematuria, Pyuria, Nocturia, Urinary Incontinence, Urinary Frequency, Urinary Hesitance, Urinary Urgency, Voiding Freq/Small Amts, Freq UTI, Hx Renal/Bladder Calculi, Hx /Renal Surgery, Bladder Distension, Other - Musculoskeletal Musculoskeletal: absent: As Per HPI, Abnormal Gait, Arthralgias, Atrophy, Back Pain, Deformity, Joint Swelling, Limited Range of Motion, Loss of Height, Muscle Cramps, Muscle Weakness, Myalgias, Neck Pain, Numbness, Radiating Pain into Limb, Stiffness, Tingling, Other - Integumentary Integumentary: absent: As Per HPI, Acne, Alopecia, Bleeding Lesions, Change in Hair, Change in Nails, Change in Pigmentation, Changing Lesions, Dry Skin, Erythema, Furuncle, Hirsutism, Lesions, New Lesions, Non-Healing Lesions, Photosensitivity, Pruritus, Rash, Skin Pain, Skin Ulcer, Sores, Striae, Swelling , Unusual Bruising, Wounds, Jaundice, Other - Neurological Neurological: As Per HPI - Psychiatric Psychiatric: absent: As Per HPI, Abnormal Sleep Pattern, Anhedonia, Anxiety, Auditory Hallucinations, Behavioral Changes, Change in Appetite, Change in Libido, Confusion, Depression, Difficulty Concentrating, Hallucinations, Homicidal Ideation, Hopelessness, Irritability, Memory Loss, Mood Swings, Panic Attacks, Paranoia, Suicidal Ideation, Visual Hallucinations, Tactile Hallucinations, Other - Endocrine Endocrine: absent: As Per HPI, Change in Body Appearance, Change in Libido, Cold Intolorance, Deepening of Voice, Excessive Sweating, Fatigue, Flushing, Heat Intolorance, Increase in Ring/Shoe/Hat Size, Palpitations, Polydipsia, Polyphagia, Polyuria, Other - Hematologic/Lymphatic Hematologic: absent: As Per HPI, Easy Bleeding, Easy Bruising, Lymphadenopathy, Other Past Patient History - Infectious Disease Hx of Infectious Diseases: None - Past Medical History & Family History Past Medical History?: Yes - Past Social History Smoking Status: Never Smoked - CARDIAC Hx Hypercholesterolemia: Yes Hx Hypertension: Yes - PULMONARY Hx Respiratory Disorders: No - NEUROLOGICAL Hx Neurological Disorder: No - HEENT Hx HEENT Problems: No - RENAL Hx Chronic Kidney Disease: No - ENDOCRINE/METABOLIC Hx Endocrine Disorders: No - HEMATOLOGICAL/ONCOLOGICAL Hx Anemia: Yes - INTEGUMENTARY Hx Dermatological Problems: No - MUSCULOSKELETAL/RHEUMATOLOGICAL Hx Arthritis: Yes (BACK ; HIPS) - GASTROINTESTINAL Hx Gastrointestinal Disorders: Yes Hx Liver Failure: Yes (HX:"ALCOHOLOIC CIRRHOSIS OF LIVER") Other/Comment: HX: ASCITIES - GENITOURINARY/GYNECOLOGICAL Hx Genitourinary Disorders: No - PSYCHIATRIC Hx Anxiety: Yes Hx Substance Use: Yes - SURGICAL HISTORY Hx Surgeries: No - ANESTHESIA Hx Anesthesia: No Meds Allergies/Adverse Reactions: Allergies Allergy/AdvReac Type Severity Reaction Status Date / Time No Known Allergies Allergy Verified 06/18/17 09:22 - Medications Medications: Current Medications Albumin Human (Albumin Human 25% (12.5 Gm/50 Ml)) 12.5 gm IV Q4H [facility] Stop: 06/21/17 08:46 Last Admin: 06/20/17 15:54 Dose: 12.5 gm Ferrous Sulfate (Feosol) 325 mg PO BID [facility] Last Admin: 06/20/17 10:44 Dose: 325 mg Piperacillin Sod/Tazobactam Sod (Zosyn 2.25 Gm Iv Premix) 2.25 gm in 50 mls @ 100 mls/hr IVPB Q6H [facility] Last Admin: 06/20/17 14:28 Dose: 100 mls/hr Vancomycin HCl 1 gm/ Sodium (Chloride) 200 mls @ 166.7 mls/hr IVPB Q24H [facility] Last Admin: 06/20/17 13:32 Dose: 166.7 mls/hr Lactulose (Enulose) 20 gm PO Q6H [facility] Last Admin: 06/20/17 15:00 Dose: Not Given Levetiracetam (Keppra) 500 mg PO BID [facility] Last Admin: 06/20/17 10:44 Dose: 500 mg Midodrine (Proamatine) 10 mg PO Q8H [facility] Last Admin: 06/20/17 13:32 Dose: 10 mg Neomycin Sulfate (Neomycin Tab) 500 mg PO Q6 [facility] Last Admin: 06/20/17 11:00 Dose: 500 mg Nicotine (Nicoderm Cq) 1 patch TD DAILY [facility] Last Admin: 06/20/17 10:44 Dose: 1 patch Octreotide Acetate (Sandostatin) 100 mcg SC Q8H [facility] Last Admin: 06/20/17 15:30 Dose: Not Given Pantoprazole Sodium (Protonix Ec Tab) 40 mg PO DAILY [facility] Last Admin: 06/20/17 10:44 Dose: 40 mg Propranolol HCl (Inderal) 10 mg PO TID [facility] Last Admin: 06/19/17 14:00 Dose: Not Given Rifaximin (Xifaxan) 550 mg PO BID [facility] Last Admin: 06/20/17 10:44 Dose: 550 mg Saccharomyces Boulardii (Florastor) 250 mg PO BID [facility] Last Admin: 06/20/17 10:44 Dose: 250 mg Physical Exam - Constitutional Appears: Confused, Chronically Ill - Head Exam Head Exam: NORMOCEPHALIC - Eye Exam Eye Exam: absent: Scleral icterus - ENT Exam ENT Exam: Mucous Membranes Dry - Neck Exam Neck exam: Negative for: Lymphadenopathy - Respiratory Exam Respiratory Exam: Decreased Breath Sounds, Rhonchi - Cardiovascular Exam Cardiovascular Exam: REGULAR RHYTHM, +S1, +S2 - GI/Abdominal Exam GI & Abdominal Exam: Diminished Bowel Sounds, Soft. absent: Tenderness - Rectal Exam Rectal Exam: Deferred - Exam Exam: NORMAL INSPECTION - Extremities Exam Extremities exam: Negative for: pedal edema - Back Exam Back exam: absent: CVA tenderness (L), CVA tenderness (R) - Neurological Exam Neurological exam: Altered - Psychiatric Exam Psychiatric exam: Depressed - Skin Skin Exam: Dry Results - Vital Signs Recent Vital Signs: Last Vital Signs Temp 98.4 F 06/20/17 16:00 Pulse 70 06/20/17 15:46 Resp 18 06/20/17 12:22 BP 104/50 L 06/20/17 12:22 Pulse Ox 96 06/20/17 15:46 - Labs Result Diagrams: 06/21/17 06:23 06/21/17 06:23 Labs: Laboratory Results - last 24 hr 06/19/17 06/19/17 06/19/17 12:36 17:05 17:05 WBC RBC Hgb Hct MCV MCH MCHC RDW Plt Count MPV Neut % (Auto) Lymph % (Auto) [place] % (Auto) Eos % (Auto) Baso % (Auto) Neut # Lymph # [place] # Eos # Baso # Neutrophils % (Manual) Band Neutrophils % Lymphocytes % (Manual) Monocytes % (Manual) Eosinophils % (Manual) Platelet Estimate Polychromasia Hypochromasia (manual) Poikilocytosis (manual Anisocytosis (manual) Microcytosis (manual) Macrocytosis (manual) Target Cells Ovalocytes Ze Cells PT INR APTT Fibrinogen 161 L D-Dimer, Quantitative 2867 H Sodium Potassium Chloride Carbon Dioxide Anion Gap BUN Creatinine Est GFR ( Amer) Est GFR (Non-Af Amer) POC Glucose (mg/dL) Random Glucose Lactic Acid 3.7 H Calcium Phosphorus Magnesium Total Bilirubin AST ALT Alkaline Phosphatase Ammonia Total Protein Albumin Globulin Albumin/Globulin Ratio Complement C3 Complement C4 Ur L.pneumophila Ag Negative 06/19/17 06/19/17 06/20/17 17:05 20:57 07:12 WBC RBC Hgb Hct MCV MCH MCHC RDW Plt Count MPV Neut % (Auto) Lymph % (Auto) [place] % (Auto) Eos % (Auto) Baso % (Auto) Neut # Lymph # [place] # Eos # Baso # Neutrophils % (Manual) Band Neutrophils % Lymphocytes % (Manual) Monocytes % (Manual) Eosinophils % (Manual) Platelet Estimate Polychromasia Hypochromasia (manual) Poikilocytosis (manual Anisocytosis (manual) Microcytosis (manual) Macrocytosis (manual) Target Cells Ovalocytes Ze Cells PT INR APTT Fibrinogen D-Dimer, Quantitative Sodium Potassium Chloride Carbon Dioxide Anion Gap BUN Creatinine Est GFR ( Amer) Est GFR (Non-Af Amer) POC Glucose (mg/dL) 114 H 89 Random Glucose Lactic Acid Calcium Phosphorus Magnesium Total Bilirubin AST ALT Alkaline Phosphatase Ammonia Total Protein Albumin Globulin Albumin/Globulin Ratio Complement C3 < 40.0 L Complement C4 8.3 L Ur L.pneumophila Ag 06/20/17 06/20/17 06/20/17 07:15 07:15 07:15 WBC 16.5 H RBC 2.55 L Hgb 9.0 L Hct 26.6 L MCV 104.3 H MCH 35.3 H MCHC 33.8 RDW 20.5 H Plt Count 65 L D MPV 9.4 Neut % (Auto) 85.3 H Lymph % (Auto) 6.6 L [place] % (Auto) 7.5 Eos % (Auto) 0.3 Baso % (Auto) 0.3 Neut # 14.1 H Lymph # 1.1 [place] # 1.2 H Eos # 0.0 Baso # 0.1 Neutrophils % (Manual) 84 H Band Neutrophils % 2 Lymphocytes % (Manual) 10 L Monocytes % (Manual) 3 Eosinophils % (Manual) 1 Platelet Estimate Decreased L Polychromasia Slight Hypochromasia (manual) Slight Poikilocytosis (manual Slight Anisocytosis (manual) Slight Microcytosis (manual) Slight Macrocytosis (manual) Slight Target Cells Slight Ovalocytes Slight Ze Cells Slight PT INR APTT Fibrinogen D-Dimer, Quantitative Sodium 126 L Potassium 5.0 Chloride 94 L Carbon Dioxide 22 Anion Gap 15 BUN 77 H Creatinine 3.5 H Est GFR ( Amer) 22 Est GFR (Non-Af Amer) 18 POC Glucose (mg/dL) Random Glucose 93 Lactic Acid Calcium 7.6 L Phosphorus 6.1 H Magnesium 2.1 Total Bilirubin 5.1 H AST 20 ALT 29 Alkaline Phosphatase 41 Ammonia 21 D Total Protein 5.6 L Albumin 2.3 L Globulin 3.4 Albumin/Globulin Ratio 0.7 L Complement C3 Complement C4 Ur L.pneumophila Ag 06/20/17 06/20/17 06/20/17 07:15 11:17 16:16 WBC RBC Hgb Hct MCV MCH MCHC RDW Plt Count MPV Neut % (Auto) Lymph % (Auto) [place] % (Auto) Eos % (Auto) Baso % (Auto) Neut # Lymph # [place] # Eos # Baso # Neutrophils % (Manual) Band Neutrophils % Lymphocytes % (Manual) Monocytes % (Manual) Eosinophils % (Manual) Platelet Estimate Polychromasia Hypochromasia (manual) Poikilocytosis (manual Anisocytosis (manual) Microcytosis (manual) Macrocytosis (manual) Target Cells Ovalocytes [place] Cells PT 25.0 H INR 2.2 APTT 71 H Fibrinogen D-Dimer, Quantitative Sodium Potassium Chloride Carbon Dioxide Anion Gap BUN Creatinine Est GFR ( Amer) Est GFR (Non-Af Amer) POC Glucose (mg/dL) 97 87 Random Glucose Lactic Acid Calcium Phosphorus Magnesium Total Bilirubin AST ALT Alkaline Phosphatase Ammonia Total Protein Albumin Globulin Albumin/Globulin Ratio Complement C3 Complement C4 Ur L.pneumophila Ag Assessment & Plan (1) Altered mental state Status: Acute (2) Coagulopathy Status: Acute (3) Sepsis Status: Acute - Assessment and Plan (Free Text) Assessment: IV antibiotics ordered empirically await cultures
[2017-06-21] MEDS: Piperacill/Tazo 2.25gm in Dex 2.25 GM/50 ML BAG IVPB SCH ×2 (01:23→08:31)
[2017-06-21] MEDS: Albumin Human 25% (12.5 gm/50 ml) IV SCH ×3 (01:32→08:32)
[2017-06-21] MEDS ORDERED: Sodium Chloride 0.9% 1,000 ML IV ONE (03:17)
[2017-06-21 06:30] LABS: BASO # 0.1 K/uL (0.0-0.2); BASO % 0.5 % (0.0-2.0); EOS # 0.1 K/uL (0.0-0.7); EOS % 0.4 % (0.0-4.0); HEMATOCRIT 25.8 % (35.0-51.0); LYMPH # 0.8 K/uL (1.0-4.3); MEAN CELL VOLUME 104.8 fL (80.0-94.0); MEAN CORPUSCULAR HEMOGLOBIN 34.8 pg (27.0-31.0); MEAN CORPUSCULAR HGB CONC 33.2 g/dL (33.0-37.0); MEAN PLATELET VOLUME 9.3 fL (7.2-11.7); MONO % 7.1 % (0.0-10.0); NRBC % 0.1 % (0.0-2.0); PLATELET COUNT 52 K/uL (130-400); RED CELL DISTRIBUTION WIDTH 20.9 % (11.5-14.5); WHITE BLOOD COUNT 13.8 K/uL (4.8-10.8)
[2017-06-21 06:59] LABS: ALB/GLOB RATIO 0.7 (1.0-2.1); BILIRUBIN,TOTAL 5.4 mg/dL (0.2-1.3); CALCIUM 7.6 mg/dl (8.6-10.4); MAGNESIUM 2.1 mg/dL (1.6-2.3); PHOSPHOROUS 5.8 mg/dL (2.5-4.5); POTASSIUM 4.8 mmol/L (3.6-5.2); TOTAL PROTEIN 5.6 g/dL (6.3-8.3)
[2017-06-21 08:16] LABS: NEUTROPHIL 82 % (50-75); REACTIVE LYMPHOCYTES 1 % (0-0); TOTAL CELLS COUNTED 100
--- NOTE | 2017-06-21 09:58 | CP.PCM.PN ---
Subjective - Date & Time of Evaluation Date of Evaluation: 06/21/17 Time of Evaluation: 09:57 - Subjective Subjective: PGY2 medicine progress note for Dr. Jojo Koroma (Covering Dr. Deng) Patient seen and examined. Patient states he feels cold despite warming blanket. Patient state he feels "so-so" today when asked. Patient also moaning "no" intermittently, not in response to anything in particular. Objective - Vital Signs/Intake and Output Vital Signs (last 24 hours): Temp Pulse Resp BP Pulse Ox 98.4 F 79 20 110/42 L 93 L 06/21/17 08:00 06/21/17 09:00 06/21/17 09:00 06/21/17 08:22 06/21/17 09:00 Intake and Output: 06/21/17 06/21/17 06:59 18:59 Intake Total 1855 250 Output Total 191 60 Balance 1664 190 - Medications Medications: Current Medications Ferrous Sulfate (Feosol) 325 mg PO BID [facility] Last Admin: 06/20/17 18:00 Dose: Not Given Piperacillin Sod/Tazobactam Sod (Zosyn 2.25 Gm Iv Premix) 2.25 gm in 50 mls @ 100 mls/hr IVPB Q6H [facility] Last Admin: 06/21/17 08:31 Dose: 100 mls/hr Vancomycin HCl 1 gm/ Sodium (Chloride) 200 mls @ 166.7 mls/hr IVPB Q24H [facility] Last Admin: 06/20/17 13:32 Dose: 166.7 mls/hr Octreotide Acetate 1,250 mcg/ (Sodium Chloride) 252.5 mls @ 10.1 mls/hr IV .Q24H [facility] PRN Reason: 50 MCG/HR Last Admin: 06/20/17 22:32 Dose: 10.1 mls/hr Lactulose (Enulose) 20 gm PO Q6H [facility] Last Admin: 06/21/17 04:22 Dose: 20 gm Levetiracetam (Keppra) 500 mg PO BID [facility] Last Admin: 06/20/17 18:00 Dose: Not Given Midodrine (Proamatine) 2.5 mg PO Q8 [facility] Last Admin: 06/21/17 05:48 Dose: 2.5 mg Midodrine (Proamatine) 10 mg PO Q8 [facility] Last Admin: 06/21/17 05:47 Dose: 10 mg Neomycin Sulfate (Neomycin Tab) 500 mg PO Q6 [facility] Last Admin: 06/21/17 05:46 Dose: 500 mg Nicotine (Nicoderm Cq) 1 patch TD DAILY [facility] Last Admin: 06/20/17 10:44 Dose: 1 patch Pantoprazole Sodium (Protonix Ec Tab) 40 mg PO DAILY [facility] Last Admin: 06/20/17 10:44 Dose: 40 mg Propranolol HCl (Inderal) 10 mg PO TID [facility] Last Admin: 06/19/17 14:00 Dose: Not Given Rifaximin (Xifaxan) 550 mg PO BID [facility] Last Admin: 06/20/17 18:00 Dose: Not Given Saccharomyces Boulardii (Florastor) 250 mg PO BID [facility] Last Admin: 06/20/17 18:00 Dose: Not Given - Labs Labs: 06/21/17 06:23 06/21/17 06:23 PT 25.0 SECONDS (9.7-12.2) H 06/20/17 07:15 INR 2.2 06/20/17 07:15 APTT 71 SECONDS (21-34) H 06/20/17 07:15 - Constitutional Appears: Confused, Chronically Ill - Head Exam Head Exam: ATRAUMATIC - Eye Exam Eye Exam: EOMI - ENT Exam ENT Exam: Mucous Membranes Dry - Respiratory Exam Respiratory Exam: Decreased Breath Sounds - Cardiovascular Exam Cardiovascular Exam: +S1, +S2 - GI/Abdominal Exam GI & Abdominal Exam: Distended, Tenderness (diffuse), Diminished Bowel Sounds - Extremities Exam Extremities Exam: absent: Pedal Edema - Neurological Exam Neurological Exam: Awake - Skin Skin Exam: Warm Assessment and Plan - Assessment and Plan (Free Text) Assessment: 1. Status post fall - 06/18- CT Head no acute changes - Hip/pelvis xray- no acute fractures/dislocations; MRI to determine occult fracturs - F/U PT/OT evaluation 2. Leukocytosis Secondary to possible PNA; Consider sepsis; Consider Bacterial Peritonitis - WBC elevated but declining, 06/21/17 WBC 13.8 - EKG- normal - Lactate elevated 06/19/17 at 3.7 but is declining - Blood Culture 06/18/17: negative to date - Urine Culture 06/18/17: no growth - CXR 06/18/17:Worsening complete opacification of L hemithorax, consolidation vs pleural effusion. - CXR 06/19/17: LLE pneumonia and worsening moderate left pleural effusion * Zosyn 2.25 gm IV Q6H * Vancomycin 1 gm IV 1x/day started 06/20/17 * F/U Vancomycin Trough 06/23/17 at 12 PM - CT Chest 06/18/17: large left pleural effusion with compressive atelectasis - Left-sided vianca-hydrothorax; L thoacocentesis done in ED 06/18/17: WBC 2052 [id number] Neutrophils 81 Lymphocytes 16 Monocytes/Macrophages 3 Total cell count 100 - Left Pleural Fluid Culture 06/18/17 is negative - Urine Legionella negative - F/U Urine Strep pneumoniae, Mycoplasma, Rapid Strep - Zosyn- 2.25g q6hrs (renally dosed) and this should cover the possibility of Bacterial Peritonitis - Critical care consult- Dr. Fortune - ID consult- Dr. Geronimo 3. Hepatic Encephalopathy - Chronic liver cirrhosis patient with previous admission for AMS. As per Dr. Deng, pt is non-compliant with lactulose as well as other medications - Ammonia: 53 - Albumin 2.3 - INR 2.2 (06/20/17) - GI consult: Dr. Marcum - Lactulose 20mg q6hrs - Xifaxan 550 m gPO 2x/day 4. MICHELINE on CKD Stage III - Baseline creatinine on previous admission was 1.5. Currently 06/21/17 it is 3.3 - Patient was receiving NSAIDs at [facility] - Hold diuretic Aldactone considering the worsening Kidney Function and the low blood pressure - Nephrology Consult- Dr. Mao- recs appreciated Albumin 12g IV x 6 doses given 5. Hypoglycemia - Resolved 6. Hyperkalemia - Could have been secondary to the Aldactone -Resolved - K+ 4.8 today 7. HTN - Propranolol and Aldactone are being held secondary to the low blood pressure - Patient is Hypotensive and would not allow Central Line or EJ for pressor administration on 06/19/17 and therefore was started on Midodrine 7.5 mg PO Q8H and his blood pressure is currently stable 8. Meningioma - Stable from previous hospitalizations - Head CT 06/18: left sphenoid wing meningioma 2.3cm x 2.9cm x 2.6cm with extensive edema extending to multiple areas. Minimal midline shift. - Keppra 500 mg PO 2x/day 9. 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 Hx of syphilis - Completed treatment with doxycycline 11. 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 Marcum has ordered Neomycin 500 mg PO Q6H - F/U workup ordered by Dr. Marcum: CA19-9= 16.9, CEA= 2.2, Alpha Feto Protein= 50.4 12. Nicotine Addiction - Nicotine Patch 14 mg TD 1x/day 13. Low platelets, Elevated INR/PTT/PT, Low Fibrinogen, Elevated D-Dimer This could be due to DIC secondary to Sepsis/Pneumonia vs. Liver Disease I will NOT workup patient for PE or DVT considering that if these are postive, I can not anticoagulate patient considering the anemia and low platelets 14. Prophylaxis - Protonix 40 PO daily - Renal diet - Anticoagulation held: INR 2.2 - Renal diet 06/20/17: Dr. Koroma spoke with Palliative Care Nurse Johan who is familiar with patient. She spoke with Palliative Care Nurse Kiley at [facility] who informed her that patient is homeless and has NO next of kin to make decisions on his behalf. Considering the above, patient has a very poor prognosis. 06/21/17: pastoral care referral placed. Patient may be more appropriate for comfort measures.
[2017-06-21] MEDS: Saccharomyces Boulardi 250 mg Cap PO SCH (10:50)
[2017-06-21] MEDS: Pantoprazole 40 mg EC Tab PO SCH (10:52)
[2017-06-21 11:23] VITALS: RESP 18
--- NOTE | 2017-06-21 11:51 | CP.PCM.PCO ---
Physician Communication Note - Physician Communication Note Physician Communication Note: Please see above
--- NOTE | 2017-06-21 12:05 | CP.PCM.PN ---
Subjective - Date & Time of Evaluation Date of Evaluation: 06/21/17 Time of Evaluation: 11:30 - Subjective Subjective: 57M with PMH Hep C, cirrhosis, treated syphilis, CKD, meningioma, anemia Hepatic encephalopathy Possible hepatorenal syndrome status post paracentesis multiple times Recently thoracentesis on left side the accumulation of fluid Considering patient's terminal condition, its futile to do repeated thoracentesis and paracentesis Objective - Vital Signs/Intake and Output Vital Signs (last 24 hours): Temp Pulse Resp BP Pulse Ox 98.3 F 79 18 113/84 97 06/21/17 11:22 06/21/17 11:22 06/21/17 11:22 06/21/17 11:22 06/21/17 11:22 Intake and Output: 06/21/17 06/21/17 06:59 18:59 Intake Total 1855 250 Output Total 191 60 Balance 1664 190 - Medications Medications: Current Medications Ferrous Sulfate (Feosol) 325 mg PO BID [facility] Last Admin: 06/21/17 10:51 Dose: 325 mg Piperacillin Sod/Tazobactam Sod (Zosyn 2.25 Gm Iv Premix) 2.25 gm in 50 mls @ 100 mls/hr IVPB Q6H [facility] Last Admin: 06/21/17 08:31 Dose: 100 mls/hr Vancomycin HCl 1 gm/ Sodium (Chloride) 200 mls @ 166.7 mls/hr IVPB Q24H [facility] Last Admin: 06/20/17 13:32 Dose: 166.7 mls/hr Octreotide Acetate 1,250 mcg/ (Sodium Chloride) 252.5 mls @ 10.1 mls/hr IV .Q24H [facility] PRN Reason: 50 MCG/HR Last Admin: 06/20/17 22:32 Dose: 10.1 mls/hr Lactulose (Enulose) 20 gm PO Q6H [facility] Last Admin: 06/21/17 10:51 Dose: 20 gm Levetiracetam (Keppra) 500 mg PO BID [facility] Last Admin: 06/21/17 10:49 Dose: 500 mg Midodrine (Proamatine) 2.5 mg PO Q8 [facility] Last Admin: 06/21/17 05:48 Dose: 2.5 mg Midodrine (Proamatine) 10 mg PO Q8 [facility] Last Admin: 06/21/17 05:47 Dose: 10 mg Neomycin Sulfate (Neomycin Tab) 500 mg PO Q6 [facility] Last Admin: 06/21/17 11:05 Dose: 500 mg Nicotine (Nicoderm Cq) 1 patch TD DAILY [facility] Last Admin: 06/21/17 10:52 Dose: 1 patch Pantoprazole Sodium (Protonix Ec Tab) 40 mg PO DAILY [facility] Last Admin: 06/21/17 10:52 Dose: 40 mg Propranolol HCl (Inderal) 10 mg PO TID [facility] Last Admin: 06/19/17 14:00 Dose: Not Given Rifaximin (Xifaxan) 550 mg PO BID [facility] Last Admin: 06/21/17 10:52 Dose: 550 mg Saccharomyces Boulardii (Florastor) 250 mg PO BID [facility] Last Admin: 06/21/17 10:50 Dose: 250 mg - Labs Labs: 06/21/17 06:23 06/21/17 06:23 PT 25.0 SECONDS (9.7-12.2) H 06/20/17 07:15 INR 2.2 06/20/17 07:15 APTT 71 SECONDS (21-34) H 06/20/17 07:15
--- NOTE | 2017-06-21 13:35 | PN ---
DATE: SUBJECTIVE: This is a 57-year-old male seen outside the Intensive Care Unit in the floor with staff without any significant clinical changes or reported active bleeding, post thoracocentesis on the left side. No reported hematemesis. The patient had been on a stage of mild hepatic encephalopathy with hepatorenal syndrome and status post paracentesis multiple times. PHYSICAL EXAMINATION: GENERAL: A 57-year-old male. VITAL SIGNS: Afebrile with pulse of 74, respiratory rate 20 to 22, blood pressure 106/80. HEENT: Showed pale dry oral mucous membrane. Nonicteric sclerae. LUNGS: Few scattered crepitation. Decreased air entry at bases. HEART: Positive S1 and S2. ABDOMEN: Soft with mild distention with ascites. No mass or organomegaly. No rebound tenderness or guarding. RECTAL: The patient refused. EXTREMITIES: Lower extremities, mild edematous changes. NEUROLOGIC: No reported new neurological deficits, sensory or motor. IMPRESSION: 1. Alcoholism. 2. Liver cirrhosis with portal hypertension and refractory ascites. 3. Pneumonia with pleural effusion. 4. Anemia secondary to above. 5. Severe anxiety syndrome, hypertension, hyperlipidemia by history. SUGGESTION: 1. Continue current management. 2. Correct any underlying electrolyte imbalance. 3. Blood transfusion to keep hemoglobin around 10 gram percent. Today's hemoglobin is 8.6, hematocrit 25.8. 4. Platelet transfusion. The patient's platelet count is 52 and hematology/oncology consult as well as nephrology consult to be considered. 5. It has to be mentioned that today's sodium is still low at 126, BUN 82, creatinine 3.3, elevated with increased phosphorus 5.8 and ammonia level is still high 53 with low albumin 2.3 and low total protein 5.6. Further recommendation to follow. Yael Archibald MD
--- NOTE | 2017-06-21 15:01 | CP.PCM.DIS ---
<Maida Monge DO - Last Filed: 06/21/17 14:58> Provider - Provider Date of Admission: 06/18/17 13:49 Attending physician: Jun Samayoa MD Consults: Dr. Tong Castelan [facility] Dr. Mao Time Spent in preparation of Discharge (in minutes): 45 Diagnosis - Discharge Diagnosis (1) End stage liver disease Status: Acute Comment: Patient with end stage liver disease, ascites, pleural effusions. Patient also suffering from hepatic encephalopathy. Hospital Course - Lab Results Lab Results: Micro Results 06/19/17 12:00 Blood-Venous Blood Culture - Preliminary NO GROWTH AFTER 48 HOURS 06/19/17 11:00 Blood-Venous Blood Culture - Preliminary NO GROWTH AFTER 48 HOURS 06/18/17 14:15 Pleural Fluid Gram Stain - Final 06/18/17 14:15 Pleural Fluid Body Fluid Culture - Preliminary NO GROWTH AFTER 3 DAYS 06/18/17 Unknown Urine,Bosch Urine Culture - Final No Growth (<1,000 CFU/ML) 06/18/17 Unknown Naris MRSA Culture (Admit) - Final MRSA NOT DETECTED Most Recent Lab Values WBC 13.8 K/uL (4.8-10.8) H 06/21/17 06:23 RBC 2.46 Mil/uL (4.40-5.90) L 06/21/17 06:23 Hgb 8.6 g/dL (12.0-18.0) L 06/21/17 06:23 Hct 25.8 % (35.0-51.0) L 06/21/17 06:23 MCV 104.8 fL (80.0-94.0) H 06/21/17 06:23 MCH 34.8 pg (27.0-31.0) H 06/21/17 06:23 MCHC 33.2 g/dL (33.0-37.0) 06/21/17 06:23 RDW 20.9 % (11.5-14.5) H 06/21/17 06:23 Plt Count 52 K/uL (130-400) L 06/21/17 06:23 MPV 9.3 fL (7.2-11.7) 06/21/17 06:23 Neut % (Auto) 86.0 % (50.0-75.0) H 06/21/17 06:23 Lymph % (Auto) 6.0 % (20.0-40.0) L 06/21/17 06:23 Eaton % (Auto) 7.1 % (0.0-10.0) 06/21/17 06:23 Eos % (Auto) 0.4 % (0.0-4.0) 06/21/17 06:23 Baso % (Auto) 0.5 % (0.0-2.0) 06/21/17 06:23 Neut # 11.9 K/uL (1.8-7.0) H 06/21/17 06:23 Lymph # 0.8 K/uL (1.0-4.3) L 06/21/17 06:23 Eaton # 1.0 K/uL (0.0-0.8) H 06/21/17 06:23 Eos # 0.1 K/uL (0.0-0.7) 06/21/17 06:23 Baso # 0.1 K/uL (0.0-0.2) 06/21/17 06:23 Neutrophils % (Manual) 82 % (50-75) H 06/21/17 06:23 Band Neutrophils % 7 % (0-2) H 06/21/17 06:23 Lymphocytes % (Manual) 2 % (20-40) L 06/21/17 06:23 Reactive Lymphs % 1 % (0-0) H 06/21/17 06:23 Monocytes % (Manual) 8 % (0-10) 06/21/17 06:23 Eosinophils % (Manual) 1 % (0-4) 06/20/17 07:15 Toxic Granulation Present 06/19/17 06:22 Platelet Estimate Decreased (NORMAL) L 06/21/17 06:23 Polychromasia Slight 06/20/17 07:15 Hypochromasia (manual) Slight 06/20/17 07:15 Poikilocytosis (manual Slight 06/20/17 07:15 Anisocytosis (manual) Moderate 06/21/17 06:23 Microcytosis (manual) Slight 06/20/17 07:15 Macrocytosis (manual) Moderate 06/21/17 06:23 Target Cells Slight 06/20/17 07:15 Ovalocytes Slight 06/21/17 06:23 Ze Cells Slight 06/21/17 06:23 Acanthocytes (Spur) Slight 06/18/17 10:22 PT 25.0 SECONDS (9.7-12.2) H 06/20/17 07:15 INR 2.2 06/20/17 07:15 APTT 71 SECONDS (21-34) H 06/20/17 07:15 Fibrinogen 161 mg/dL (200-400) L 06/19/17 17:05 D-Dimer, Quantitative 2867 ng/mlDDU (0-243) H 06/19/17 17:05 Puncture Site R bra 06/19/17 05:17 pCO2 31 mm/Hg (35-45) L 06/19/17 05:17 pO2 77 mm/Hg (80-100) L 06/19/17 05:17 HCO3 19.7 mmol/L (21-28) L 06/19/17 05:17 ABG pH 7.37 (7.35-7.45) 06/19/17 05:17 ABG Total CO2 18.9 mmol/L (22-28) L 06/19/17 05:17 ABG O2 Saturation 98.2 % (95-98) H 06/19/17 05:17 ABG Base Excess -6.6 mmol/L (-2.0-3.0) L 06/19/17 05:17 ABG Hemoglobin 9.1 g/dL (11.7-17.4) L 06/19/17 05:17 ABG Carboxyhemoglobin 3.2 % (0.5-1.5) H 06/19/17 05:17 POC ABG HHb (Measured) 1.7 % (0.0-5.0) 06/19/17 05:17 ABG Methemoglobin 0.9 % (0.0-3.0) 06/19/17 05:17 Justice Test Na 06/19/17 05:17 ABG Potassium 5.4 mmol/L (3.6-5.2) H 06/18/17 20:20 A-a O2 Difference 191.0 mm/Hg 06/18/17 20:20 Respiratory Index 2.0 06/18/17 20:20 Hgb O2 Saturation 94.2 % (95.0-98.0) L 06/19/17 05:17 Sodium 129.0 mmol/l (132-148) L 06/18/17 20:20 Chloride 102.0 mmol/L (98-107) 06/18/17 20:20 Glucose 111 mg/dl (75-110) H 06/18/17 20:20 Lactate 4.2 mmol/L (0.7-2.1) H* 06/18/17 20:20 Liter Flow 4.0 06/19/17 05:17 FiO2 45.0 % 06/18/17 20:20 Crit Value Called To Dr vázquez 06/18/17 20:20 Crit Value Called By Natanael mclaughlin 06/18/17 20:20 Crit Value Read Back Y 06/18/17 20:20 Blood Gas Notified Time 202606/18/17 20:20 Sodium 126 mmol/L (132-148) L 06/21/17 06:23 Potassium 4.8 mmol/L (3.6-5.2) 06/21/17 06:23 Chloride 97 mmol/L (98-107) L 06/21/17 06:23 Carbon Dioxide 18 mmol/L (22-30) L 06/21/17 06:23 Anion Gap 16 (10-20) 06/21/17 06:23 BUN 82 mg/dL (9-20) H 06/21/17 06:23 Creatinine 3.3 mg/dL (0.8-1.5) H 06/21/17 06:23 Est GFR ( Amer) 24 06/21/17 06:23 Est GFR (Non-Af Amer) 20 06/21/17 06:23 POC Glucose (mg/dL) 88 mg/dL (65-110) 06/21/17 11:32 Random Glucose 91 mg/dL (75-110) 06/21/17 06:23 Lactic Acid 3.7 mmol/L (0.7-2.1) H 06/19/17 17:05 Calcium 7.6 mg/dl (8.6-10.4) L 06/21/17 06:23 Phosphorus 5.8 mg/dL (2.5-4.5) H 06/21/17 06:23 Magnesium 2.1 mg/dL (1.6-2.3) 06/21/17 06:23 Total Bilirubin 5.4 mg/dL (0.2-1.3) H 06/21/17 06:23 AST 16 U/L (17-59) L 06/21/17 06:23 ALT 24 U/L (21-72) 06/21/17 06:23 Alkaline Phosphatase 38 U/L (38-126) 06/21/17 06:23 Ammonia 53 umol/L (9-33) H D 06/21/17 06:23 Lactate Dehydrogenase 1016 U/L (313-618) H 06/18/17 10:22 Troponin I < 0.0120 ng/mL (0.00-0.120) 06/18/17 10:22 NT-Pro-B Natriuret Pep 2390 pg/mL (0-900) H 06/18/17 10:22 Total Protein 5.6 g/dL (6.3-8.3) L 06/21/17 06:23 Albumin 2.3 g/dL (3.5-5.0) L 06/21/17 06:23 Globulin 3.2 gm/dL (2.2-3.9) 06/21/17 06:23 Albumin/Globulin Ratio 0.7 (1.0-2.1) L 06/21/17 06:23 Alpha Fetoprotein 50.4 ng/mL (0.0-7.5) H 06/19/17 12:36 Carcinoembryonic Ag 2.2 ng/mL (0-3.0) 06/19/17 12:36 CA 19-9 Antigen 16.9 U/mL (0-37) 06/19/17 12:36 Arterial Blood Potassium 5.4 mmol/L (3.6-5.2) H 06/18/17 20:20 Urine Color Yellow (YELLOW) 06/19/17 15:47 Urine Clarity Hazy (Clear) 06/19/17 15:47 Urine pH 5.0 (5.0-8.0) 06/19/17 15:47 Ur Specific Ramsay 1.020 (1.003-1.030) 06/19/17 15:47 Urine Protein 1+ mg/dL (NEGATIVE) H 06/19/17 15:47 Urine Glucose (UA) Normal mg/dL (Normal) 06/19/17 15:47 Urine Ketones Negative mg/dL (NEGATIVE) 06/19/17 15:47 Urine Blood 3+ (NEGATIVE) H 06/19/17 15:47 Urine Nitrate Negative (NEGATIVE) 06/19/17 15:47 Urine Bilirubin Negative (NEGATIVE) 06/19/17 15:47 Urine Urobilinogen Normal mg/dL (0.2-1.0) 06/19/17 15:47 Ur Leukocyte Esterase 3+ Nyasia/uL (Negative) H 06/19/17 15:47 Urine WBC (Auto) 49 /hpf (0-5) H 06/19/17 15:47 Urine RBC (Auto) 29 /hpf (0-3) H 06/19/17 15:47 Urine WBC Clumps (Auto) Rare /hpf (NONE) H 06/19/17 15:47 Ur Squamous Epith Cells 2 /hpf (0-5) 06/19/17 15:47 Calcium Oxalate Crystal Occ /hpf (<OCC) H 06/19/17 15:47 Urine Bacteria Rare (<OCC) 06/19/17 15:47 Hyaline Casts >20 /lpf (0-2) H 06/19/17 15:47 Ur Random Creatinine 193.0 mg/dL 06/19/17 15:47 U Random Total Protein 31.0 mg/dL (0.0-12.0) H 06/19/17 16:00 Ur Random Sodium < 5 mmol/L 06/19/17 12:36 Ur Random Urea Nitrogn 246 mg/dL 06/18/17 17:16 Urine Microalbumin 105.1 mg/L (0.0-16.6) H 06/19/17 15:47 Fluid Source Pleural/thoracentesi 06/18/17 13:16 Fluid Appearance Sl cloudy (CLEAR) 06/18/17 13:16 Fluid WBC 2052.0 /mm3 (0.0-300.0) H 06/18/17 13:16 Fluid RBC 1080.0 /mm3 (0.0-0.0) H 06/18/17 13:16 Fluid Tot Cell Count 100 (0-0) H 06/18/17 13:16 Fluid Neutrophils 81.0 % (0-0) H 06/18/17 13:16 Fluid Lymphocytes 16.0 % (0-0) H 06/18/17 13:16 Fld Monocyte/Macrophag 3 % (0-0) H 06/18/17 13:16 Fluid Comment 06/18/17 13:16 Pleural Total Protein <3.0 g/dL 06/18/17 14:15 Pleural LDH 65 U/L 06/18/17 14:15 Complement C3 < 40.0 mg/dL (88.0-165.0) L 06/19/17 17:05 Complement C4 8.3 mg/dL (14.0-44.0) L 06/19/17 17:05 Ur L.pneumophila Ag Negative (NEGATIVE) 06/19/17 12:36 Blood Type O POSITIVE 06/18/17 10:22 Antibody Screen Positive 06/18/17 10:22 Antibody Identification Anti Jka 06/18/17 10:22 MERE, Poly Interpret Negative (NEGATIVE) 06/18/17 10:22 - Hospital Course Hospital Course: On Admission: This is a 57 year old male brought in via BLS, [facility] slip and fall in the bathroom. H Patient is confused and believes he might of hit the front of his forehead. He also complains of right hip pain. Patient denies LOC, chest pain, SOB, abdominal pain, back pain, weakness or numbness. He is confused during examination and is unable to provide insight into his medical conditions/history. The patient has multiple admissions, extensive medical history, as detailed below; and was recently discharged from Dr. Deng's service earlier this month. He is an extremely poor historian. The chart sent with him from [facility] details the medications below and POLST form detailing DNR/DNI status. During Hospitalization: Patient was treated in the ICU with thoracentesis for his pleural effusion, paracentesis for ascites. Patient was evaluated by nephrology, Dr. Mao for his MICHELINE on CKD. Patient was given albumin for his hypotension and beta blockers and aldactone was held. Patient was evaluated by Dr. Jossue SINGH for chronic hepatitis C. Patient was evaluated for possible DIC due to liver disease, sepsis/ pneumonia. Patient was evaluated by palliative care nurse, Annelise Prado who spoke with palliative care nurse at [facility], [place]. Patient has no next of kin or someone to make decisions for him. On discharge: Considering this patient's multiple comorbidities (End Stage Liver Disease, Hepatitis C Infection, Liver Cirrhosis, Portal HTN, reaccumulating Ascites and Pleural Effusion, Hepatic Encephalopathy, worsening anemia, DIC) and his continued pain upon examination, patient's condition is terminal and further treatment would prolong his suffering and . Patient is discharged to inpatient hospice with recommendations from hospice site safety representative. Discharge Exam - Head Exam Head Exam: ATRAUMATIC - Eye Exam Eye Exam: EOMI - ENT Exam ENT Exam: Mucous Membranes Dry - Respiratory Exam Respiratory Exam: Decreased Breath Sounds - Cardiovascular Exam Cardiovascular Exam: +S1, +S2 - GI/Abdominal Exam GI & Abdominal Exam: Diminished Bowel Sounds, Distended - Neurological Exam Neurological exam: Altered - Skin Skin Exam: Warm Discharge Plan - Follow Up Plan Condition: GUARDED Disposition: HOSPICE - MEDICAL FACILITY Additional Instructions: Patient is discharged to [facility] inpatient hospice per Dr. Warren Koroma. Recommendations as per hospice site safety representative. <Warren Koroma J - Last Filed: 06/21/17 16:46> Provider - Provider Date of Admission: 06/18/17 13:49 Attending physician: Jun Samayoa MD Hospital Course - Lab Results Lab Results: Micro Results 06/19/17 12:00 Blood-Venous Blood Culture - Preliminary NO GROWTH AFTER 48 HOURS 06/19/17 11:00 Blood-Venous Blood Culture - Preliminary NO GROWTH AFTER 48 HOURS 06/18/17 14:15 Pleural Fluid Gram Stain - Final 06/18/17 14:15 Pleural Fluid Body Fluid Culture - Preliminary NO GROWTH AFTER 3 DAYS 06/18/17 Unknown Urine,Bosch Urine Culture - Final No Growth (<1,000 CFU/ML) 06/18/17 Unknown Naris MRSA Culture (Admit) - Final MRSA NOT DETECTED Most Recent Lab Values WBC 13.8 K/uL (4.8-10.8) H 06/21/17 06:23 RBC 2.46 Mil/uL (4.40-5.90) L 06/21/17 06:23 Hgb 8.6 g/dL (12.0-18.0) L 06/21/17 06:23 Hct 25.8 % (35.0-51.0) L 06/21/17 06:23 MCV 104.8 fL (80.0-94.0) H 06/21/17 06:23 MCH 34.8 pg (27.0-31.0) H 06/21/17 06:23 MCHC 33.2 g/dL (33.0-37.0) 06/21/17 06:23 RDW 20.9 % (11.5-14.5) H 06/21/17 06:23 Plt Count 52 K/uL (130-400) L 06/21/17 06:23 MPV 9.3 fL (7.2-11.7) 06/21/17 06:23 Neut % (Auto) 86.0 % (50.0-75.0) H 06/21/17 06:23 Lymph % (Auto) 6.0 % (20.0-40.0) L 06/21/17 06:23 Eaton % (Auto) 7.1 % (0.0-10.0) 06/21/17 06:23 Eos % (Auto) 0.4 % (0.0-4.0) 06/21/17 06:23 Baso % (Auto) 0.5 % (0.0-2.0) 06/21/17 06:23 Neut # 11.9 K/uL (1.8-7.0) H 06/21/17 06:23 Lymph # 0.8 K/uL (1.0-4.3) L 06/21/17 06:23 Eaton # 1.0 K/uL (0.0-0.8) H 06/21/17 06:23 Eos # 0.1 K/uL (0.0-0.7) 06/21/17 06:23 Baso # 0.1 K/uL (0.0-0.2) 06/21/17 06:23 Neutrophils % (Manual) 82 % (50-75) H 06/21/17 06:23 Band Neutrophils % 7 % (0-2) H 06/21/17 06:23 Lymphocytes % (Manual) 2 % (20-40) L 06/21/17 06:23 Reactive Lymphs % 1 % (0-0) H 06/21/17 06:23 Monocytes % (Manual) 8 % (0-10) 06/21/17 06:23 Eosinophils % (Manual) 1 % (0-4) 06/20/17 07:15 Toxic Granulation Present 06/19/17 06:22 Platelet Estimate Decreased (NORMAL) L 06/21/17 06:23 Polychromasia Slight 06/20/17 07:15 Hypochromasia (manual) Slight 06/20/17 07:15 Poikilocytosis (manual Slight 06/20/17 07:15 Anisocytosis (manual) Moderate 06/21/17 06:23 Microcytosis (manual) Slight 06/20/17 07:15 Macrocytosis (manual) Moderate 06/21/17 06:23 Target Cells Slight 06/20/17 07:15 Ovalocytes Slight 06/21/17 06:23 Ze Cells Slight 06/21/17 06:23 Acanthocytes (Spur) Slight 06/18/17 10:22 PT 25.0 SECONDS (9.7-12.2) H 06/20/17 07:15 INR 2.2 06/20/17 07:15 APTT 71 SECONDS (21-34) H 06/20/17 07:15 Fibrinogen 161 mg/dL (200-400) L 06/19/17 17:05 D-Dimer, Quantitative 2867 ng/mlDDU (0-243) H 06/19/17 17:05 Puncture Site R bra 06/19/17 05:17 pCO2 31 mm/Hg (35-45) L 06/19/17 05:17 pO2 77 mm/Hg (80-100) L 06/19/17 05:17 HCO3 19.7 mmol/L (21-28) L 06/19/17 05:17 ABG pH 7.37 (7.35-7.45) 06/19/17 05:17 ABG Total CO2 18.9 mmol/L (22-28) L 06/19/17 05:17 ABG O2 Saturation 98.2 % (95-98) H 06/19/17 05:17 ABG Base Excess -6.6 mmol/L (-2.0-3.0) L 06/19/17 05:17 ABG Hemoglobin 9.1 g/dL (11.7-17.4) L 06/19/17 05:17 ABG Carboxyhemoglobin 3.2 % (0.5-1.5) H 06/19/17 05:17 POC ABG HHb (Measured) 1.7 % (0.0-5.0) 06/19/17 05:17 ABG Methemoglobin 0.9 % (0.0-3.0) 06/19/17 05:17 Jusitce Test Na 06/19/17 05:17 ABG Potassium 5.4 mmol/L (3.6-5.2) H 06/18/17 20:20 A-a O2 Difference 191.0 mm/Hg 06/18/17 20:20 Respiratory Index 2.0 06/18/17 20:20 Hgb O2 Saturation 94.2 % (95.0-98.0) L 06/19/17 05:17 Sodium 129.0 mmol/l (132-148) L 06/18/17 20:20 Chloride 102.0 mmol/L (98-107) 06/18/17 20:20 Glucose 111 mg/dl (75-110) H 06/18/17 20:20 Lactate 4.2 mmol/L (0.7-2.1) H* 06/18/17 20:20 Liter Flow 4.0 06/19/17 05:17 FiO2 45.0 % 06/18/17 20:20 Crit Value Called To Dr vázquez 06/18/17 20:20 Crit Value Called By [facility] 06/18/17 20:20 Crit Value Read Back Y 06/18/17 20:20 Blood Gas Notified Time 202606/18/17 20:20 Sodium 126 mmol/L (132-148) L 06/21/17 06:23 Potassium 4.8 mmol/L (3.6-5.2) 06/21/17 06:23 Chloride 97 mmol/L (98-107) L 06/21/17 06:23 Carbon Dioxide 18 mmol/L (22-30) L 06/21/17 06:23 Anion Gap 16 (10-20) 06/21/17 06:23 BUN 82 mg/dL (9-20) H 06/21/17 06:23 Creatinine 3.3 mg/dL (0.8-1.5) H 06/21/17 06:23 Est GFR ( Amer) 24 06/21/17 06:23 Est GFR (Non-Af Amer) 06/21/17 06:23 POC Glucose (mg/dL) 88 mg/dL (65-110) 06/21/17 11:32 Random Glucose 91 mg/dL (75-110) 06/21/17 06:23 Lactic Acid 3.7 mmol/L (0.7-2.1) H 06/19/17 17:05 Calcium 7.6 mg/dl (8.6-10.4) L 06/21/17 06:23 Phosphorus 5.8 mg/dL (2.5-4.5) H 06/21/17 06:23 Magnesium 2.1 mg/dL (1.6-2.3) 06/21/17 06:23 Total Bilirubin 5.4 mg/dL (0.2-1.3) H 06/21/17 06:23 AST 16 U/L (17-59) L 06/21/17 06:23 ALT 24 U/L (21-72) 06/21/17 06:23 Alkaline Phosphatase 38 U/L (38-126) 06/21/17 06:23 Ammonia 53 umol/L (9-33) H D 06/21/17 06:23 Lactate Dehydrogenase 1016 U/L (313-618) H 06/18/17 10:22 Troponin I < 0.0120 ng/mL (0.00-0.120) 06/18/17 10:22 NT-Pro-B Natriuret Pep 2390 pg/mL (0-900) H 06/18/17 10:22 Total Protein 5.6 g/dL (6.3-8.3) L 06/21/17 06:23 Albumin 2.3 g/dL (3.5-5.0) L 06/21/17 06:23 Globulin 3.2 gm/dL (2.2-3.9) 06/21/17 06:23 Albumin/Globulin Ratio 0.7 (1.0-2.1) L 06/21/17 06:23 Alpha Fetoprotein 50.4 ng/mL (0.0-7.5) H 06/19/17 12:36 Carcinoembryonic Ag 2.2 ng/mL (0-3.0) 06/19/17 12:36 CA 19-9 Antigen 16.9 U/mL (0-37) 06/19/17 12:36 Arterial Blood Potassium 5.4 mmol/L (3.6-5.2) H 06/18/17 20:20 Urine Color Yellow (YELLOW) 06/19/17 15:47 Urine Clarity Hazy (Clear) 06/19/17 15:47 Urine pH 5.0 (5.0-8.0) 06/19/17 15:47 Ur Specific Ramsay 1.020 (1.003-1.030) 06/19/17 15:47 Urine Protein 1+ mg/dL (NEGATIVE) H 06/19/17 15:47 Urine Glucose (UA) Normal mg/dL (Normal) 06/19/17 15:47 Urine Ketones Negative mg/dL (NEGATIVE) 06/19/17 15:47 Urine Blood 3+ (NEGATIVE) H 06/19/17 15:47 Urine Nitrate Negative (NEGATIVE) 06/19/17 15:47 Urine Bilirubin Negative (NEGATIVE) 06/19/17 15:47 Urine Urobilinogen Normal mg/dL (0.2-1.0) 06/19/17 15:47 Ur Leukocyte Esterase 3+ Nyasia/uL (Negative) H 06/19/17 15:47 Urine WBC (Auto) 49 /hpf (0-5) H 06/19/17 15:47 Urine RBC (Auto) 29 /hpf (0-3) H 06/19/17 15:47 Urine WBC Clumps (Auto) Rare /hpf (NONE) H 06/19/17 15:47 Ur Squamous Epith Cells 2 /hpf (0-5) 06/19/17 15:47 Calcium Oxalate Crystal Occ /hpf (<OCC) H 06/19/17 15:47 Urine Bacteria Rare (<OCC) 06/19/17 15:47 Hyaline Casts >20 /lpf (0-2) H 06/19/17 15:47 Ur Random Creatinine 193.0 mg/dL 06/19/17 15:47 U Random Total Protein 31.0 mg/dL (0.0-12.0) H 06/19/17 16:00 Ur Random Sodium < 5 mmol/L 06/19/17 12:36 Ur Random Urea Nitrogn 246 mg/dL 06/18/17 17:16 Urine Microalbumin 105.1 mg/L (0.0-16.6) H 06/19/17 15:47 Fluid Source Pleural/thoracentesi 06/18/17 13:16 Fluid Appearance Sl cloudy (CLEAR) 06/18/17 13:16 Fluid WBC 2052.0 /mm3 (0.0-300.0) H 06/18/17 13:16 Fluid RBC 1080.0 /mm3 (0.0-0.0) H 06/18/17 13:16 Fluid Tot Cell Count 100 (0-0) H 06/18/17 13:16 Fluid Neutrophils 81.0 % (0-0) H 06/18/17 13:16 Fluid Lymphocytes 16.0 % (0-0) H 06/18/17 13:16 Fld Monocyte/Macrophag 3 % (0-0) H 06/18/17 13:16 Fluid Comment 06/18/17 13:16 Pleural Total Protein <3.0 g/dL 06/18/17 14:15 Pleural LDH 65 U/L 06/18/17 14:15 Complement C3 < 40.0 mg/dL (88.0-165.0) L 06/19/17 17:05 Complement C4 8.3 mg/dL (14.0-44.0) L 06/19/17 17:05 Ur L.pneumophila Ag Negative (NEGATIVE) 06/19/17 12:36 Blood Type O POSITIVE 06/18/17 10:22 Antibody Screen Positive 06/18/17 10:22 Antibody Identification Anti Jka 06/18/17 10:22 MERE, Poly Interpret Negative (NEGATIVE) 06/18/17 10:22 Attending/Attestation - Attestation I have personally seen and examined this patient.: Yes I have fully participated in the care of the patient.: Yes I have reviewed all pertinent clinical information, including history, physical exam and plan: Yes
[2017-06-21 15:57] VITALS: BP 97/53; PULSE 77; TEMP 98.8; O2SAT 90
--- NOTE | 2017-06-21 19:05 | CP.PCM.PN ---
Objective - Vital Signs/Intake and Output Vital Signs (last 24 hours): Temp Pulse Resp BP Pulse Ox 98.8 F 77 18 97/53 L 90 L 06/21/17 15:05 06/21/17 15:05 06/21/17 15:05 06/21/17 15:05 06/21/17 15:05 Intake and Output: 06/21/17 06/22/17 18:59 06:59 Intake Total 250 Output Total 60 Balance 190 - Labs Labs: 06/21/17 06:23 06/21/17 06:23 PT 25.0 SECONDS (9.7-12.2) H 06/20/17 07:15 INR 2.2 06/20/17 07:15 APTT 71 SECONDS (21-34) H 06/20/17 07:15 Assessment and Plan (1) Acute renal failure Status: Acute (2) Glomerulonephritis Status: Acute (3) Sepsis Status: Acute (4) Hepatic encephalopathy Status: Acute (5) Ascites Status: Acute (6) Hyperkalemia Status: Acute (7) Hyponatremia Status: Acute (8) Metabolic acidosis Status: Acute
--- NOTE | 2017-06-22 13:04 | CARD ---
APPROVED REPORT EKG Measurement Heart [id number] <Conclusion> Normal sinus rhythm Normal ECG
== END 2017-06-21 16:03 | disposition hospice, inpatient (51) | DRG 557 ==
LOC: C.ER 08:23 → C.9E 13:49 → C.9I 15:35 → C.6T 06-21 09:58
PROVIDERS: ADMIT Internal Medicine; ATTEND Internal Medicine
PROC: 0W9G3ZZ Drainage of Peritoneal Cavity, Percutaneous Approach (ICD-10-PCS; principal; 2017-06-18)
PROC: 0W9B3ZZ Drainage of Left Pleural Cavity, Percutaneous Approach (ICD-10-PCS; 2017-06-18)
DX: K70.31 Alcoholic cirrhosis of liver with ascites (principal); J94.8 Other specified pleural conditions; D65 Disseminated intravascular coagulation [defibrination syndrome]; K70.40 Alcoholic hepatic failure without coma; J18.9 Pneumonia, unspecified organism; N17.9 Acute kidney failure, unspecified; E87.2 Acidosis; N18.3 Chronic kidney disease, stage 3 (moderate); K76.6 Portal hypertension; B18.2 Chronic viral hepatitis C; E87.1 Hypo-osmolality and hyponatremia; E87.5 Hyperkalemia; J98.11 Atelectasis; D63.8 Anemia in other chronic diseases classified elsewhere; F10.20 Alcohol dependence, uncomplicated; I12.9 Hypertensive chronic kidney disease with stage 1 through stage 4 chronic kidney disease, or unspecified chronic kidney disease; S09.90XA Unspecified injury of head, initial encounter; S30.0XXA Contusion of lower back and pelvis, initial encounter; W01.0XXA Fall on same level from slipping, tripping and stumbling without subsequent striking against object, initial encounter; E78.5 Hyperlipidemia, unspecified; E72.20 Disorder of urea cycle metabolism, unspecified; D73.1 Hypersplenism; E16.2 Hypoglycemia, unspecified; Z51.5 Encounter for palliative care; Z66 Do not resuscitate; D32.9 Benign neoplasm of meninges, unspecified; E78.00 Pure hypercholesterolemia, unspecified; F17.210 Nicotine dependence, cigarettes, uncomplicated; M19.90 Unspecified osteoarthritis, unspecified site; Y92.121 Bathroom in nursing home as the place of occurrence of the external cause; Z79.899 Other long term (current) drug therapy

== ENCOUNTER 2017-06-21 14:55 | Inpatient (IN) | payer OTHER ==
[2017-06-21] MEDS ORDERED: Bisacodyl 5mg EC Tab PO PRN (16:24)
--- NOTE | 2017-06-21 16:39 | CP.PCM.HP ---
History of Present Illness - History of Present Illness History of Present Illness: Patient is a 57 year old male who was initially admitted to [facility] on 06/18/17 after a fall at his shelter. Patient has had multiple admissions , 8 in 2017, related to his chronic liver disease and ascites. Patient has had extended workup on past admissions for his liver cirrhosis, renail failure, chronic hepatitis c, anemia. Patient has had repeated paracentesis with rapid re-accumulation of ascitic fluid. On the most recent admission on 06/18/17, patient was evaluated by critical care for decompensated end stage liver disease with hepatic encephalopathy, left vianca-hydrothorax, MICHELINE on CKD, anemia, DIC. Patient's condition continued to deteriorate and decision was made to admit patient to inpatient hospice treatment. PMHx: Cirrhosis, meningioma, chronic anemia, CKD, hx of syphilis s/p tx with doxycycline, hepatitis C PSHx: Denies FHx: unknown Allergies: NKDA Social history: [facility] resident, admits to smoking (10 cigarettes for per day) denies ETOH and illicit drug use Present on Admission - Present on Admission Any Indicators Present on Admission: No Review of Systems - Review of Systems Systems not reviewed;Unavailable: Altered Mental Status Past Patient History - Infectious Disease Hx of Infectious Diseases: None - Past Medical History & Family History Past Medical History?: Yes - Past Social History Smoking Status: Never Smoked - CARDIAC Hx Hypercholesterolemia: Yes Hx Hypertension: Yes - PULMONARY Hx Respiratory Disorders: No - NEUROLOGICAL Hx Neurological Disorder: No - HEENT Hx HEENT Problems: No - RENAL Hx Chronic Kidney Disease: No - ENDOCRINE/METABOLIC Hx Endocrine Disorders: No - HEMATOLOGICAL/ONCOLOGICAL Hx Anemia: Yes - INTEGUMENTARY Hx Dermatological Problems: No - MUSCULOSKELETAL/RHEUMATOLOGICAL Hx Arthritis: Yes (BACK ; HIPS) - GASTROINTESTINAL Hx Gastrointestinal Disorders: Yes Hx Liver Failure: Yes (HX:"ALCOHOLOIC CIRRHOSIS OF LIVER") Other/Comment: HX: ASCITIES - GENITOURINARY/GYNECOLOGICAL Hx Genitourinary Disorders: No - PSYCHIATRIC Hx Anxiety: Yes Hx Substance Use: Yes - SURGICAL HISTORY Hx Surgeries: No - ANESTHESIA Hx Anesthesia: No Meds Allergies/Adverse Reactions: Allergies Allergy/AdvReac Type Severity Reaction Status Date / Time No Known Allergies Allergy Verified 06/18/17 09:22 Physical Exam - Constitutional Appears: Confused, Chronically Ill - Head Exam Head Exam: ATRAUMATIC - Eye Exam Eye Exam: EOMI - ENT Exam ENT Exam: Mucous Membranes Dry - Respiratory Exam Respiratory Exam: Decreased Breath Sounds - Cardiovascular Exam Cardiovascular Exam: +S1, +S2 - GI/Abdominal Exam GI & Abdominal Exam: Diminished Bowel Sounds, Distended - Extremities Exam Extremities exam: Negative for: pedal edema - Neurological Exam Neurological exam: Altered - Skin Skin Exam: Warm Assessment & Plan - Assessment and Plan (Free Text) Assessment: End Stage Liver Disease patient re-admitted for inpatient hospice per hospice recommendations, will continue: morphine IV drip, morphine 2mg IV q1h prn pain, ativan 1mg IV q6prn restlessness, acetaminophen 650mg q4h prn fever, dulcolax 10mg pr daily prn constipation, scopolamine patch, oxygen by nasal canula We will continue to follow patient and make adjustments for patient comfort Plan of care discussed with Dr. Warren Koroma
--- NOTE | 2017-06-22 09:28 | CP.PCM.PN ---
<Trenton Roberts - Last Filed: 06/22/17 11:11> Subjective - Date & Time of Evaluation Date of Evaluation: 06/22/17 Time of Evaluation: 09:10 - Subjective Subjective: PGY-[address] Warren Koroma Patient seen and examined at bedside. Patient is under comfort care measures. He is able to open his eyes when spoke to. Unable to obtain further ROS. Objective - Vital Signs/Intake and Output Vital Signs (last 24 hours): Temp Pulse Resp BP Pulse Ox 98 F 85 6 L 96/54 L 97 06/22/17 08:31 06/22/17 09:01 06/22/17 09:01 06/22/17 09:01 06/22/17 08:31 Intake and Output: 06/22/17 06/22/17 06:59 18:59 Output Total 160 Balance -160 - Medications Medications: Current Medications Acetaminophen (Tylenol 650 Mg Supp) 650 mg LA Q4 PRN PRN Reason: Fever >100.4 F Bisacodyl (Dulcolax) 10 mg LA DAILY PRN PRN Reason: Constipation Morphine Sulfate 250 mg/ (Sodium Chloride) 250 mls @ 2 mls/hr IV .Q24H ONE PRN Reason: Protocol Stop: 06/22/17 16:26 Last Admin: 06/21/17 18:49 Dose: 2 mg/hr, 2 mls/hr Lorazepam (Ativan) 1 mg IVP Q6H PRN PRN Reason: Restlessness Morphine Sulfate (Morphine) 2 mg IVP Q1H PRN PRN Reason: Pain, moderate (4-7) Scopolamine (Transderm-Scop) 1 patch TD Q3D KARL Last Admin: 06/21/17 18:51 Dose: 1 patch - Constitutional Appears: Confused, Chronically Ill - Head Exam Head Exam: ATRAUMATIC - Eye Exam Eye Exam: EOMI - ENT Exam ENT Exam: Mucous Membranes Dry - Respiratory Exam Respiratory Exam: Decreased Breath Sounds Additional comments: Slow breathing - Cardiovascular Exam Cardiovascular Exam: +S1, +S2 - GI/Abdominal Exam GI & Abdominal Exam: Distended, Diminished Bowel Sounds - Neurological Exam Neurological Exam: Awake Additional comments: lethargic - Skin Skin Exam: Dry, Warm Assessment and Plan - Assessment and Plan (Free Text) Assessment: End Stage Liver Disease -Terminal patient, withheld medical treatments -Follow hospice recommendations for comfort care -morphine IV drip, morphine 2mg IV q1h prn pain, ativan 1mg IV q6prn restlessness, acetaminophen 650mg q4h prn fever, dulcolax 10mg pr daily prn constipation, scopolamine patch, oxygen by nasal canula We will continue to follow patient and make adjustments for patient comfort Case discussed with Dr. Warren Koroma (covering for Dr. Deng) <Warren Koroma - Last Filed: 06/22/17 14:51> Objective - Vital Signs/Intake and Output Vital Signs (last 24 hours): Temp Pulse Resp BP Pulse Ox 98 F 85 6 L 96/54 L 97 06/22/17 08:31 06/22/17 09:01 06/22/17 09:01 06/22/17 09:01 06/22/17 08:31 Intake and Output: 06/22/17 06/22/17 06:59 18:59 Intake Total 16 Output Total 160 5 Balance -160 11 - Medications Medications: Current Medications Acetaminophen (Tylenol 650 Mg Supp) 650 mg LA Q4 PRN PRN Reason: Fever >100.4 F Bisacodyl (Dulcolax) 10 mg LA DAILY PRN PRN Reason: Constipation Morphine Sulfate 250 mg/ (Sodium Chloride) 250 mls @ 2 mls/hr IV .Q24H ONE PRN Reason: Protocol Stop: 06/22/17 16:26 Last Admin: 06/21/17 18:49 Dose: 2 mg/hr, 2 mls/hr Lorazepam (Ativan) 1 mg IVP Q6H PRN PRN Reason: Restlessness Morphine Sulfate (Morphine) 2 mg IVP Q1H PRN PRN Reason: Pain, moderate (4-7) Scopolamine (Transderm-Scop) 1 patch TD Q3D KARL Last Admin: 06/21/17 18:51 Dose: 1 patch Attending/Attestation - Attestation I have personally seen and examined this patient.: Yes I have fully participated in the care of the patient.: Yes I have reviewed all pertinent clinical information, including history, physical exam and plan: Yes Notes (Text): 06/22/17 14:50 Patient was seen and examined at 8 AM 06/22/17. Comfort care. Warren Rucker D.O.
[2017-06-22 16:16] VITALS: TEMP 97.7; O2SAT 100
[2017-06-22 22:22] VITALS: BP 62/31; PULSE 73; RESP 10
--- NOTE | 2017-06-23 02:01 | CP.PCM.PRO ---
Pronouncement of Note - Clinical Findings Physical Exam: No Response Verbal/Painful Stimuli, Absent Peripheral Pulses{ Carotid & Femoral}, Absent Heart & Breath Sounds, No Pupillary Light Reflex, No Corneal Reflex, Pupils Fixed & Dilated, Absence of Vital Signs - Pronouncement Time Time of Pronouncement of : 23:56 - Notifications Pronouncement Notifications: Atending Notified - N.[place]yl Certificate [place] Number: [id number]
--- NOTE | 2017-06-23 07:39 | CP.PCM.DIS ---
Provider - Provider Date of Admission: 06/21/17 14:55 Attending physician: Warren Koroma MD Time Spent in preparation of Discharge (in minutes): 40 Hospital Course - Hospital Course Hospital Course: Patient is a 57 year old male who was initially admitted to [facility] on [facility]/17 after a fall [facility]. Patient has had multiple admissions , 8 in 2017, related to his chronic liver disease and ascites. Patient has had extended workup on past admissions for his liver cirrhosis, renail failure, chronic hepatitis c, anemia. Patient has had repeated paracentesis with rapid re-accumulation of ascitic fluid. On the most recent admission on 06/18/17, patient was evaluated by critical care for decompensated end stage liver disease with hepatic encephalopathy, left vianca-hydrothorax, MICHELINE on CKD, anemia, DIC. Patient's condition continued to deteriorate and decision was made to admit patient to inpatient hospice treatment. Patient was re-admitted under hospice care on 06/21/17 and orders were placed as per the recommendations of hospice. Patient at 23:56 on 06/22/17. Patient has no known family to notify. Discharge Exam - Additional Findings Additional findings: See pronouncement note from 06/23/17 Discharge Plan - Follow Up Plan Condition: Disposition: WITH WITHOUT AUTOPSY
== END 2017-06-22 23:56 | DRG 443 ==
LOC: C.6T 14:55
PROVIDERS: ADMIT Family Medicine; ATTEND Family Medicine
DX: K72.90 Hepatic failure, unspecified without coma (principal); B18.2 Chronic viral hepatitis C; E78.00 Pure hypercholesterolemia, unspecified; F17.210 Nicotine dependence, cigarettes, uncomplicated; I12.9 Hypertensive chronic kidney disease with stage 1 through stage 4 chronic kidney disease, or unspecified chronic kidney disease; N18.9 Chronic kidney disease, unspecified; Z86.011 Personal history of benign neoplasm of the brain; Z51.5 Encounter for palliative care; K74.60 Unspecified cirrhosis of liver